=== PATIENT | female | born 1945 | race Caucasian/White ===

== ENCOUNTER 2017-05-12 08:57 | Outpatient (CLI) | payer MEDICARE, OTHER, SELFPAY ==
--- NOTE | 2017-05-12 09:01 | MM_ITS ---
MM Dig screening mamm BI w/CAD CAD Screening COMPARISON: Digital mammograms 02/06/2015 and 03/09/2016 INDICATION: There is been previous biopsy right breast. There is a history of breast cancer in patient's maternal great aunt TECHNIQUE: Standard CC and MLO images were obtained. R2 CAD reviewed. FINDINGS: Mild to moderate scattered fiber glandular densities are seen throughout both breast primarily upper outer quadrants. There are stable tiny benign-appearing nodular densities axillary tail right breast. There is a mole marker right axilla. There is no suspicious lesion and there are no suspicious microcalcifications. IMPRESSION: Fibrofatty parenchyma with no suspicious lesion seen BI-RADS Category: 2 Benign Finding(s) RECOMMENDED FOLLOW-UP: 1YR - 1 YEAR FOLLOW-UP (A letter has been sent to the patient regarding results of the study.)
[2017-05-12 09:22] VITALS: BP 140/86; PULSE 87; RESP 18; TEMP 36.7; O2SAT 97
== END 2017-05-12 09:45 | disposition home or self-care (01) ==
PROVIDERS: PCP Family Medicine; Visit Provider Nurse Practitioner Obstetrics & Gynecology
DX: Z12.31 Encounter for screening mammogram for malignant neoplasm of breast (principal); M85.89 Other specified disorders of bone density and structure, multiple sites
CPT/HCPCS: 77067; 96372; J0897

== ENCOUNTER → 2017-06-03 09:37 | Outpatient (CLI) | payer MEDICARE, OTHER, SELFPAY ==
--- NOTE | 2017-06-03 09:39 | XR_ITS ---
XR DEXA axial skeleton COMPARISON: None HISTORY: Patient is postmenopausal TECHNIQUE: DEXA scanning lumbar spine and bilateral hips FINDINGS: The areas BMD lumbar spine L1-L4 is 1.159 g centimeters squared and the T score is -0.2. The total BMD left hip is 0.968 g centimeters squared and right hip is 0.979 g centimeters square and the T-scores are -0.3 and -0.2 respectively. Both femoral neck T scores of -1.1. IMPRESSION: Normal study lumbar spine, mild osteopenia of the hips, consider follow-up study in approximately 2 years
== END ==
PROVIDERS: PCP Family Medicine; Visit Provider Nurse Practitioner Obstetrics & Gynecology
DX: Z78.0 Asymptomatic menopausal state (principal)
CPT/HCPCS: 77080

== ENCOUNTER → 2017-06-23 13:09 | Outpatient (POV) | payer MEDICARE, OTHER, SELFPAY | PROVIDERS: Visit Provider Dermatology | DX: Z00.00 Encounter for general adult medical examination without abnormal findings (principal) ==

== ENCOUNTER → 2017-12-08 09:28 | Outpatient (CLI) | payer MEDICARE, OTHER, SELFPAY ==
--- NOTE | 2017-12-08 09:36 | XR_ITS ---
XR knee LT 3V HISTORY: ITS.REASON: LEFT KNEE PAIN ORDERING PHYSICIAN: JIMBO Molina PATIENT AGE: 72 years COMPARISON: None FINDINGS: On the lateral view there is a lucency at the proximal tip of the fibula also noted on the oblique view. This could be due to either an avulsion injury which could be acute or old versus accessory center of ossification. Please correlate with patient's history and clinical exam. No other significant anomalies are evident. IMPRESSION: Lucency at the proximal tip of the fibular head which could be due to an avulsion injury age indeterminate or ununited ossification center.
== END ==
PROVIDERS: PCP Family Medicine; Visit Provider Physician Assistant
DX: M25.562 Pain in left knee (principal)
CPT/HCPCS: 73562

== ENCOUNTER → 2017-12-21 09:47 | Outpatient (CLI) | payer MEDICARE, OTHER, SELFPAY ==
--- NOTE | 2017-12-21 09:54 | XR_ITS ---
XR knee LT 3V HISTORY: Knee pain ITS.REASON: AVULSION FX ORDERING PHYSICIAN: JIMBO Molina PATIENT AGE: 72 years COMPARISON: 12/08/2017 FINDINGS: There remains a lucency at the head of the fibula. This is well-circumscribed and is consistent with either an old avulsion fracture or accessory center of ossification and is not significantly changed. The joint space is well-preserved. No acute fracture or dislocation. IMPRESSION: No change with no acute finding. Old avulsion fracture versus ununited ossification center at the fibular head
== END ==
PROVIDERS: PCP Family Medicine; Visit Provider Physician Assistant
DX: T14.8XXA Other injury of unspecified body region, initial encounter (principal)
CPT/HCPCS: 73562

== ENCOUNTER 2018-01-25 09:08 | Outpatient (CLI) | payer MEDICARE, OTHER, SELFPAY ==
[2018-01-25 09:12] VITALS: BP 121/81; PULSE 98; RESP 20; TEMP 36.7; O2SAT 97
== END 2018-01-25 09:30 | disposition home or self-care (01) ==
LOC: INF 09:08
PROVIDERS: Visit Provider Nurse Practitioner Obstetrics & Gynecology
DX: M85.89 Other specified disorders of bone density and structure, multiple sites (principal)
CPT/HCPCS: 96372; J0897

== ENCOUNTER → 2018-05-17 07:51 | Outpatient (CLI) | payer MEDICARE, OTHER, SELFPAY ==
[2018-05-17 13:21] LABS: Alanine Aminotransferase 28 U/L (12-78); Albumin Level 3.8 gm/dL (3.4-5.0); Albumin/Globulin Ratio 1.1 (1.1-1.8); Alkaline Phosphatase 65 U/L (46-116); Anion Gap 12.3 mEq/L (5-15); Aspartate Amino Transferase 16 U/L (15-37); Bilirubin,Total 0.4 mg/dL (0.2-1.0); Blood Urea Nitrogen 20 mg/dL (7-18); Calcium 9.1 mg/dL (8.5-10.1); Carbon Dioxide 30 mmol/L (21.0-32.0); Chloride 105 mmol/L (98-107); Chol/HDL Ratio 3.7 (1-3.5); Cholesterol 230 mg/dL (140-200); Creatinine,Serum 0.78 mg/dL (0.55-1.02); Estimated Glomerular Filt Rate 73 ml/min (>60); GFR (African American) 88 ML/MIN (>60); Globulin 3.5 gm/dl (1.3-3.2); Glucose 95 mg/dL (74-106); HDL Cholesterol 62 mg/dL (29-89); LDL Cholesterol 149 mg/dL (0-130); Potassium 4.3 mmoL/L (3.5-5.1); Sodium 143 mmol/L (136-145); Thyroid Stimulating Hormone 1.44 uIU/ml (0.358-3.740); Total Protein,Serum 7.3 gm/dL (6.4-8.2); Triglycerides 93 mg/dL (30-200); VLDL Cholesterol 19 mg/dL (0-40)
== END ==
PROVIDERS: Visit Provider Physician Assistant
DX: I10 Essential (primary) hypertension (principal); Z13.29 Encounter for screening for other suspected endocrine disorder; Z13.220 Encounter for screening for lipoid disorders
CPT/HCPCS: 36415; 80053; 80061; 84443

== ENCOUNTER → 2018-05-29 10:07 | Outpatient (CLI) | payer MEDICARE, OTHER, SELFPAY ==
--- NOTE | 2018-05-29 10:09 | MM_ITS ---
MM Dig screening mamm BI w/CAD ORDERING PHYSICIAN : Amanda Kauffman MD PATIENT AGE: 73 years GENDER: Female COMPARISON: Bilateral mammogram January 2013, 2013, 2014, February 2016. April 2017. INDICATION: ITS routine SCREENING. No hormones. No new complaints. Previous stereotactic biopsy right breast. Family history. Maternal great aunt sent for TECHNIQUE: Standard CC and MLO images were obtained. R2 CAD reviewed. . Additional axillary cc view both right and left breast with additional MLO nipple profile view is well. FINDINGS: Minimal residual fibroglandular elements in both breast but no suspicious dominant mass or suspicious calcifications. RIGHT BREAST:No new areas of concern. Follow-up in one year LEFT BREAST: No significant new areas of concern Minimal density at the superior left breast towards upper-outer quadrant that is remain stable. And similar to 2015 & 2013 studies. . Bilateral follow-up in one year recommended IMPRESSION: No significant new areas of concern. Stable mammogram.Stable mild asymmetry. Routine follow-up recommended. BI-RADS Category: 2 Benign Finding(s) RECOMMENDED FOLLOW-UP: 1YR 1 YEAR FOLLOW-UP (A letter has been sent to the patient regarding results of the study.)
== END ==
PROVIDERS: PCP Family Medicine; Visit Provider Family Medicine
DX: Z12.31 Encounter for screening mammogram for malignant neoplasm of breast (principal)
CPT/HCPCS: 77067

== ENCOUNTER → 2018-07-24 07:29 | Outpatient (CLI) | payer MEDICARE, OTHER, SELFPAY ==
[2018-07-24 08:33] LABS: Alanine Aminotransferase 31 U/L (12-78); Albumin Level 3.7 gm/dL (3.4-5.0); Anion Gap 14.8 mEq/L (5-15); Aspartate Amino Transferase 17 U/L (15-37); Bilirubin,Total 0.3 mg/dL (0.2-1.0); Blood Urea Nitrogen 22 mg/dL (7-18); Calcium 8.9 mg/dL (8.5-10.1); Carbon Dioxide 27 mmol/L (21.0-32.0); Chloride 107 mmol/L (98-107); Cholesterol 181 mg/dL (140-200); Creatinine,Serum 0.88 mg/dL (0.55-1.02); Estimated Glomerular Filt Rate 63 ml/min (>60); GFR (African American) 77 ML/MIN (>60); Globulin 3.7 gm/dl (1.3-3.2); Glucose 98 mg/dL (74-106); HDL Cholesterol 62 mg/dL (29-89); Potassium 3.8 mmoL/L (3.5-5.1); Sodium 145 mmol/L (136-145); Total Protein,Serum 7.4 gm/dL (6.4-8.2); Triglycerides 100 mg/dL (30-200); VLDL Cholesterol 20 mg/dL (0-40)
[2018-07-24 08:34] LABS: Alkaline Phosphatase 71 U/L (46-116); Chol/HDL Ratio 2.9 (1-3.5); LDL Cholesterol 99 mg/dL (0-130)
== END ==
PROVIDERS: Visit Provider Physician Assistant
DX: E78.2 Mixed hyperlipidemia (principal)
CPT/HCPCS: 36415; 80053; 80061

== ENCOUNTER 2018-07-26 08:51 | Outpatient (CLI) | payer MEDICARE, OTHER, SELFPAY ==
[2018-07-26 09:21] VITALS: BP 132/70; PULSE 76; RESP 18; TEMP 36.6; O2SAT 98
== END 2018-07-26 09:35 | disposition home or self-care (01) ==
LOC: INF 08:52
PROVIDERS: Visit Provider Nurse Practitioner Obstetrics & Gynecology
DX: M85.89 Other specified disorders of bone density and structure, multiple sites (principal)
CPT/HCPCS: 96372; J0897

== ENCOUNTER → 2018-11-10 10:12 | Outpatient (CLI) | payer MEDICARE, OTHER, SELFPAY ==
--- NOTE | 2018-11-10 | ECG_ITS ---
APPROVED REPORT Exam: Resting ECG HR:74 bpm ECG Measurements Heart Rate 74 AXES MA 116 P 55 QRSd 76 QRS 66 QT 404 T 71 QTc 448 <Conclusion> Normal sinus rhythm Normal ECG Electronically signed by : Johny Abraham, 11/10/2018 17:39:27
[2018-11-10 10:15] LABS: Microscopic, Urine URINE MICROSCOPIC (MICROSCOPIC)
[2018-11-10 10:36] LABS: Basophils % 0.6 % (0.1-2.0); Eosinophils # 0.2 K/mm3 (0.0-0.4); Eosinophils % 2.4 % (0.1-12.0); Hematocrit 42.5 % (37.0-47.0); Hemoglobin 13.5 g/dL (12.2-16.2); Lymphocytes % 30.7 % (10-50); Mean Corpuscular HGB Conc 31.8 g/dL (31.8-35.4); Mean Corpuscular Hemoglobin 28.7 pg (27.0-31.2); Mean Corpuscular Volume 90.2 fl (81-99); Mean Platelet Volume 7.4 fl (7.4-10.4); Monocytes # 0.4 K/mm3 (0.1-1.0); Monocytes % 5.7 % (1.7-9.3); Neutrophils # 3.8 K/mm3 (1.8-7.8); Neutrophils % 60.5 % (37.0-80.0); Platelet Count 240 K/mm3 (142-424); Red Blood Count 4.71 M/mm3 (4.20-5.40); Red Cell Distribution Width 13.4 % (11.5-17.5); White Blood Count 6.4 K/mm3 (4.8-10.8)
--- NOTE | 2018-11-10 10:36 | XR_ITS ---
PROCEDURE: XR CHEST 2V CLINICAL HISTORY: SOB, Shortness of breath, dyspnea COMPARISON: No exams were available for comparison FINDINGS: The cardiomediastinal silhouette and pulmonary vascularity are within normal limits. The lungs are clear without infiltrates, suspicious nodules, or pleural effusions. There is mild kyphosis of the thoracic spine. IMPRESSION: No acute finding Dictated by: Rick Hollingsworth MD 11/10/2018 10:52 Signed by: <Electronically signed by Rick Hollingsworth MD in [place]> 11/11/2018 10:33
[2018-11-10 10:45] LABS: Activated Partial Thrombo Time 24.3 seconds (23.6-34.0); Prothrombin Time 10.4 seconds (9.4-11.8)
[2018-11-10 11:01] LABS: Appearance,Urine CLEAR (Clear); Bilirubin,Urine Negative (Negative); Blood, Urine Negative (Negative); Color,Urine YELLOW (Yellow); Glucose,Urine (UA) Negative (Negative); Ketones,Urine Negative (Negative); Leukocyte Esterase,Urine 1+ (Negative); Nitrate,Urine Negative (Negative); PH,Urine 7.5 (5.0-8.5); Protein,Urine Negative (Negative); Specific Gravity, Urine <= 1.005 (1.005-1.030); Urobilinogen,Urine 0.2 EU/dl (0.2)
[2018-11-10 11:36] LABS: Bacteria,Urine Trace /lpf; WBC,Urine Occasional #/hpf (0-3)
[2018-11-10 11:47] LABS: Alanine Aminotransferase 30 U/L (12-78); Albumin/Globulin Ratio 1.2 (1.1-1.8); Alkaline Phosphatase 65 U/L (46-116); Anion Gap 10.5 mEq/L (5-15); Aspartate Amino Transferase 20 U/L (15-37); Bilirubin,Total 0.4 mg/dL (0.2-1.0); Blood Urea Nitrogen 17 mg/dL (7-18); Calcium 9.3 mg/dL (8.5-10.1); Carbon Dioxide 30 mmol/L (21.0-32.0); Chloride 103 mmol/L (98-107); Creatinine,Serum 0.84 mg/dL (0.55-1.02); Estimated Glomerular Filt Rate 67 ml/min (>60); GFR (African American) 81 ML/MIN (>60); Globulin 3.4 gm/dl (1.3-3.2); Glucose 91 mg/dL (74-106); Potassium 4.5 mmoL/L (3.5-5.1); Sodium 139 mmol/L (136-145); Total Protein,Serum 7.4 gm/dL (6.4-8.2)
[2018-11-10 15:29] LABS: Hemoglobin A1C 5.6 % (0.0-7.0)
== END ==
PROVIDERS: Visit Provider Family Medicine
DX: Z01.818 Encounter for other preprocedural examination (principal); Z79.899 Other long term (current) drug therapy; Z51.81 Encounter for therapeutic drug level monitoring
CPT/HCPCS: 36415; 71046; 80053; 81001; 83036; 85025; 85610; 85730; 87086; 87088; 87186; 93005

== ENCOUNTER 2019-01-26 09:10 | Outpatient (CLI) | payer MEDICARE, OTHER, SELFPAY ==
[2019-01-26 09:35] VITALS: BP 136/82; PULSE 73; RESP 20
== END 2019-01-26 09:50 | disposition home or self-care (01) ==
LOC: INF 09:13
PROVIDERS: Visit Provider Nurse Practitioner Obstetrics & Gynecology
DX: M85.89 Other specified disorders of bone density and structure, multiple sites (principal)
CPT/HCPCS: 96372; J0897

== ENCOUNTER → 2019-02-02 10:20 | Outpatient (CLI) | payer MEDICARE, OTHER, SELFPAY ==
--- NOTE | 2019-02-02 10:32 | MR_ITS ---
PROCEDURE: MR HEAD/BRAIN WO/W CON CLINICAL INDICATION: ATAXIA Bilateral leg and arm weakness COMPARISON: No exams were available for comparison TECHNIQUE: Routine multiplanar multi echo sequences are performed without and with gadolinium enhancement. FINDINGS: No midline shift, mass effect, intracranial hemorrhage, or hydrocephalus is evident. The cerebellopontine angles, cerebellum, and brainstem have an unremarkable appearance. No significant intracranial T2 white matter hyperintensities. No enhancing lesions. No restricted diffusion. The pituitary, optic chiasm, corpus callosum are unremarkable. There is diffuse increased T2 signal within the cervical cord beginning in the upper aspect of the cord at the C1 level. At this level of the involvement is more extensive on the right but then becomes bilateral and shows some minimal enhancement. No cord enlargement is evident. The cervical cord is only well visualized on the sagittal T2 weighted. The uppermost portion of the cervical cord is also imaged on the axial images.. The level of involvement is at least from the C1 to the C4 level. There is both right and left central involvement of the cord with some sparing of the periaqueductal region. There is mild mucosal thickening of the ethmoid sinuses. IMPRESSION: 1. Abnormal signal intensity of the upper cervical cord as described above with mild diffuse increased T2 signal with some minimal enhancement with involvement of at least 4 levels from C1 the C4. This is consistent with myelopathy. Differential diagnosis would include transverse myelitis, neuromyelitis optica, acute disseminated encephalomyelitis, multiple sclerosis, and vasculitis. Recommend MRI of the cervical spine without and with gadolinium enhancement for more definitive evaluation. 2. Mild sinus disease. 3. No acute intracranial findings. The 4. These findings were discussed by telephone with Dr. Santiago 02/02/2019 at 1:30 p.m. Dictated by: Rick Hollingsworth MD 02/02/2019 13:52 Electronically signed by Rick Hollingsworth MD in [place] 02/02/2019 13:54
== END ==
PROVIDERS: PCP Family Medicine; Visit Provider Family Medicine
DX: R27.0 Ataxia, unspecified (principal)
CPT/HCPCS: 70553; A9576

== ENCOUNTER 2019-03-13 11:00 | Outpatient (RCR) | payer MEDICARE, OTHER, SELFPAY | END 2019-03-13 11:05 | disposition home or self-care (01) | LOC: PT 11:00 | PROVIDERS: PCP Family Medicine; Visit Provider Physical Medicine & Rehabilitation | DX: G37.3 Acute transverse myelitis in demyelinating disease of central nervous system (principal) | CPT/HCPCS: 97110; 97112; 97116; 97163 ==

== ENCOUNTER 2019-05-31 14:30 | Outpatient (RCR) | payer MEDICARE, OTHER, SELFPAY | END 2019-05-31 14:35 | disposition home or self-care (01) | LOC: PT 14:30 | PROVIDERS: PCP Family Medicine; Visit Provider Radiology Diagnostic Radiology | DX: M54.2 Cervicalgia (principal) | CPT/HCPCS: 97110; 97112; 97163; 97164 ==

== ENCOUNTER 2019-07-27 13:10 | Outpatient (CLI) | payer MEDICARE, OTHER, SELFPAY ==
[2019-07-27 13:35] VITALS: BP 126/83; PULSE 91; RESP 18; TEMP 36.6; O2SAT 92
== END 2019-07-27 13:50 | disposition home or self-care (01) ==
LOC: INF 13:19
PROVIDERS: Visit Provider Nurse Practitioner Obstetrics & Gynecology
DX: M85.89 Other specified disorders of bone density and structure, multiple sites (principal)
CPT/HCPCS: 96372; J0897

== ENCOUNTER → 2019-09-20 09:53 | Outpatient (CLI) | payer MEDICARE, OTHER, SELFPAY ==
--- NOTE | 2019-09-20 09:59 | US_ITS ---
APPROVED REPORT Exam Type: Lower Extremity Segmental Pressures Helicopter Pilot: Crysatl Maxwell RVT Indications Claudication: Bilaterally Rest Pain: Bilaterally Numbness/Tingling Ifeanyi feet are purple x 1 month Pressures/Indices Right Indices Left Indices Brachial 131.00 mmHg Brachial 137.00 mmHg Low Thigh 158.00 mmHg 1.15 Low Thigh 176.00 mmHg 1.28 Calf 156.00 mmHg 1.14 Calf 156.00 mmHg 1.14 Ankle(PT) 154.00 mmHg 1.12 Ankle(PT) 162.00 mmHg 1.18 Ankle(DP) 141.00 mmHg 1.03 Ankle(DP) 152.00 mmHg 1.11 Digit 80.00 mmHg 0.58 Digit 70.00 mmHg 0.51 Findings RT JASBIR:1.12 LT JASBIR:1.18 RT TBI:0.58 LT TBI:0.51 NORMAL PULSES BILATERAL NORMAL WAVEFORMS BILATERAL Conclusion Normal appearing resting noninvasive lower extremity arterial study. Electronically signed by : Rick Hollingsworth MD 09/21/2019 11:38:34
== END ==
PROVIDERS: PCP Family Medicine; Visit Provider Family Medicine
DX: I70.213 Atherosclerosis of native arteries of extremities with intermittent claudication, bilateral legs (principal)
CPT/HCPCS: 93923

== ENCOUNTER → 2019-11-08 09:54 | Outpatient (CLI) | payer MEDICARE, OTHER, SELFPAY ==
--- NOTE | 2019-11-08 09:57 | XR_ITS ---
PROCEDURE: XR DEXA AXIAL SKELETON CLINICAL HISTORY: POST MENOPAUSAL COMPARISON: No exams were available for comparison FINDINGS: The right hip BMD is 0.732 with a t-score of -1.1. The left hip BMD is 0.737 with a t-score of -1 0. The lumbar spine BMD is 1.021 with a t-score of -0.2. IMPRESSION: Osteopenia with moderate fracture risk. Treatment advised. Suggest follow-up exam in 2 years Dictated by: Rick Hollingsworth MD 11/10/2019 11:15 Rick Hollingsworth MD in [place] 11/10/2019 11:15
== END ==
PROVIDERS: PCP Family Medicine; Visit Provider Family Medicine
DX: Z78.0 Asymptomatic menopausal state (principal); M85.89 Other specified disorders of bone density and structure, multiple sites
CPT/HCPCS: 77080

== ENCOUNTER 2020-01-29 09:51 | Outpatient (CLI) | payer MEDICARE, OTHER, SELFPAY ==
[2020-01-29 09:56] VITALS: BP 122/53; PULSE 98; RESP 18; TEMP 36.3; O2SAT 100
== END 2020-01-29 10:21 | disposition home or self-care (01) ==
LOC: INF 09:51
PROVIDERS: Visit Provider Nurse Practitioner Obstetrics & Gynecology
DX: M85.89 Other specified disorders of bone density and structure, multiple sites (principal)
CPT/HCPCS: 96372; J0897

== ENCOUNTER → 2020-07-18 10:10 | Outpatient (CLI) | payer MEDICARE, OTHER, SELFPAY ==
--- NOTE | 2020-07-18 10:15 | US_ITS ---
APPROVED REPORT Exam Type: Ankle to Brachial Index [employer] Officer: RT Jose(R) Indications Claudication: Bilaterally Rest Pain: Bilaterally bilateral discoloration of feet Pressures/Indices Right Indices Left Indices Brachial 143.00 mmHg Brachial 150.00 mmHg Low Thigh 159.00 mmHg 1.06 Low Thigh 175.00 mmHg 1.17 Calf 171.00 mmHg 1.14 Calf 173.00 mmHg 1.15 Ankle(PT) 160.00 mmHg 1.07 Ankle(PT) 167.00 mmHg 1.11 Ankle(DP) 158.00 mmHg 1.05 Ankle(DP) 158.00 mmHg 1.05 Digit 83.00 mmHg 0.55 Digit 103.00 mmHg 0.69 Findings RT JASBIR=1.1 LT JASBIR=1.1 RT TBI=0.6 LT TBI=0.7 Normal pulses Normal waveforms Conclusion RT JASBIR=1.1 LT JASBIR=1.1 RT TBI=0.6 LT TBI=0.7 Normal pulses Normal waveforms Electronically signed by : Rick Hollingsworth MD 07/18/2020 15:46:58
== END ==
PROVIDERS: PCP Family Medicine; Visit Provider Family Medicine
DX: I70.213 Atherosclerosis of native arteries of extremities with intermittent claudication, bilateral legs (principal)
CPT/HCPCS: 93923

== ENCOUNTER 2020-07-29 10:03 | Outpatient (CLI) | payer MEDICARE, OTHER, SELFPAY ==
[2020-07-29 10:23] VITALS: BP 151/86; PULSE 90; RESP 18; TEMP 36.4; O2SAT 98
== END 2020-07-29 10:41 | disposition home or self-care (01) ==
LOC: INF 10:03
PROVIDERS: Visit Provider Nurse Practitioner Obstetrics & Gynecology
DX: M85.89 Other specified disorders of bone density and structure, multiple sites (principal)
CPT/HCPCS: 96372; J0897

== ENCOUNTER → 2020-09-10 09:21 | Outpatient (CLI) | payer MEDICARE, OTHER, SELFPAY ==
--- NOTE | 2020-09-10 09:26 | MM_ITS ---
PROCEDURE INFORMATION: Exam: MG Screening 3D Mammography Exam date and time: 09/10/2020 9:26 AM Age: 75 years old Clinical indication: Encounter for screening mammogram for malignant neoplasm of breast TECHNIQUE: Imaging protocol: Screening tomosynthesis and 2D mammography including computer-aided detection (CAD) when performed. COMPARISON: 1. MG [facility] MM Dig screening mamm BI w/CAD 05/29/2018 10:32 AM 2. MG [facility] MM Dig screening mamm BI w/CAD 05/12/2017 9:50 AM FINDINGS: MAMMOGRAPHY: Breast composition: The breast tissue is composed of scattered areas of fibroglandular density. Mass: None. Architectural distortion: None. Calcifications: No suspicious calcifications. Asymmetric density: None. Skin thickening: None. Axillary adenopathy: None. IMPRESSION: No mammographic evidence of malignancy. Annual screening is recommended unless otherwise clinically indicated. ASSESSMENT: BI-RADS Category 1: Negative
== END ==
PROVIDERS: PCP Family Medicine; Visit Provider Nurse Practitioner Obstetrics & Gynecology
DX: Z12.31 Encounter for screening mammogram for malignant neoplasm of breast (principal)
CPT/HCPCS: 77063; 77067

== ENCOUNTER → 2020-09-30 14:54 | Outpatient (POV) | payer MEDICARE, OTHER, SELFPAY | PROVIDERS: Visit Provider Dermatology | DX: Z00.00 Encounter for general adult medical examination without abnormal findings (principal) ==

== ENCOUNTER → 2021-01-26 14:05 | Outpatient (POV) | payer MEDICARE, OTHER, SELFPAY | PROVIDERS: Visit Provider Internal Medicine Nephrology | DX: Z00.00 Encounter for general adult medical examination without abnormal findings (principal) ==

== ENCOUNTER 2021-02-04 09:54 | Outpatient (CLI) | payer MEDICARE, OTHER, SELFPAY ==
[2021-02-04 10:18] VITALS: BP 145/84; PULSE 87; RESP 17; TEMP 36.8; O2SAT 97
== END 2021-02-04 10:21 | disposition home or self-care (01) ==
LOC: INF 09:55
PROVIDERS: PCP Family Medicine; Visit Provider Nurse Practitioner Obstetrics & Gynecology
DX: L40.50 Arthropathic psoriasis, unspecified (principal)
CPT/HCPCS: 96372; J0897

== ENCOUNTER → 2021-02-16 12:55 | Outpatient (CLI) | payer MEDICARE, OTHER, SELFPAY ==
--- NOTE | 2021-02-16 12:57 | US_ITS ---
PROCEDURE: US KIDNEY CLINICAL INDICATION: RENAL INSUFFICIENCY, URINARY RETENTION COMPARISON: No exams were available for comparison FINDINGS: The right kidney is 10 x 4 x 5 cm. Mild cortical thinning. No hydronephrosis or renal mass. The left kidney is 11 x 4 x 4 cm. There is mild prominence of the left renal pelvicaliceal system. Mild cortical thinning. IMPRESSION: Mild bilateral renal cortical thinning. Mild left hydronephrosis Dictated by: Rick Hollingsworth MD 02/16/2021 16:51 Rick Hollingsworth MD in [place] 02/16/2021 16:51
== END ==
PROVIDERS: PCP Family Medicine; Visit Provider Internal Medicine Nephrology
DX: N28.9 Disorder of kidney and ureter, unspecified (principal)
CPT/HCPCS: 76770

== ENCOUNTER → 2021-02-19 08:50 | Outpatient (CLI) | payer MEDICARE, OTHER, SELFPAY ==
[2021-02-19 08:53] LABS: Microscopic, Urine URINE MICROSCOPIC (MICROSCOPIC)
[2021-02-19 09:26] LABS: Hematocrit 36.9 % (37.0-47.0); Hemoglobin 12.2 g/dL (12.2-16.2); Mean Corpuscular HGB Conc 33.1 g/dL (31.8-35.4); Mean Corpuscular Hemoglobin 29.7 pg (27.0-31.2); Mean Corpuscular Volume 89.6 fl (81-99); Platelet Count 220 K/mm3 (142-424); Red Blood Count 4.12 M/mm3 (4.20-5.40)
[2021-02-19 09:28] LABS: Appearance,Urine CLEAR (Clear); Bilirubin,Urine Negative (Negative); Blood, Urine 1+ (Negative); Color,Urine YELLOW (Yellow); Glucose,Urine (UA) Negative (Negative); Ketones,Urine Negative (Negative); Leukocyte Esterase,Urine 2+ (Negative); Nitrate,Urine POSITIVE (Negative); PH,Urine 5.5 (5.0-8.5); Protein,Urine Negative (Negative); Specific Gravity, Urine >= 1.030 (1.005-1.030); Urobilinogen,Urine 0.2 EU/dl (0.2)
[2021-02-19 09:45] LABS: Bacteria,Urine 1+ /lpf
[2021-02-19 09:59] LABS: Creatinine,Urine Random 137 mg/dL (Not Estab.)
[2021-02-19 10:08] LABS: Albumin Level 4.1 g/dl (3.5-5.0); Anion Gap 7.4 mEq/L (5-15); Blood Urea Nitrogen 30 mg/dl (7-17); Calcium 9.4 mg/dl (8.4-10.2); Carbon Dioxide 31 mmol/L (22.0-30.0); Chloride 106 mmol/L (98-107); Estimated Glomerular Filt Rate 54 ml/min (>60); GFR (African American) 66 ML/MIN (>60); Glucose 93 mg/dl (74-100); Phosphorous 3.8 mg/dl (2.5-4.5); Potassium 4.4 mmoL/L (3.5-5.1); Sodium 140 mmol/L (136-145)
== END ==
PROVIDERS: Visit Provider Internal Medicine Nephrology
DX: N28.9 Disorder of kidney and ureter, unspecified (principal); M85.89 Other specified disorders of bone density and structure, multiple sites; Z79.899 Other long term (current) drug therapy
CPT/HCPCS: 36415; 80069; 81001; 82306; 82570; 83970; 84155; 85014; 85018; 85048; 85049; 87086; 87088; 87186

== ENCOUNTER → 2021-02-23 15:09 | Outpatient (POV) | payer MEDICARE, OTHER, SELFPAY | PROVIDERS: Visit Provider Internal Medicine Nephrology | DX: Z00.00 Encounter for general adult medical examination without abnormal findings (principal) ==

== ENCOUNTER → 2021-07-17 07:53 | Outpatient (CLI) | payer MEDICARE, OTHER, SELFPAY ==
--- NOTE | 2021-07-17 07:58 | MR_ITS ---
FINAL REPORT CLINICAL HISTORY: SPINAL CORD DISEASE. CHRONIC LBP. NKI. FINDINGS: Multiplanar MR imaging of the lumbar spine was performed without contrast. On the sagittal T2-weighted images, there is abnormal decreased signal throughout the lumbar discs. There are endplate reactive signal changes at L4-L5 and L5-S1. The vertebrae are of normal height. The vertebral alignment is normal. L1-2: There is no significant canal stenosis or neural foraminal narrowing. L2-3: There is no significant canal stenosis or neural foraminal narrowing. L3-4: There is no significant canal stenosis or neural foraminal narrowing. L4-5: There is a mild diffuse disc bulge with mild bilateral neural foraminal narrowing. L5-S1: There is a mild diffuse disc bulge with mild bilateral neural foraminal narrowing. IMPRESSION: Diffuse disc bulges with mild bilateral neural foraminal narrowing at L4-L5 and L5-S1. Reviewed, Interpreted and Dictated by Tonny Huffman MD Transcribed by Richard Tam Authenticated by Tonny Huffman MD on 07/17/2021 11:04:[address] [facility]
--- NOTE | 2021-07-17 07:58 | MR_ITS ---
FINAL REPORT CLINICAL HISTORY: SPINAL CORD DISEASE, CHRONIC NECK PAIN. NKI. FINDINGS: Multi planar MR imaging was obtained of the cervical spine with and without contrast. There is abnormal decreased signal throughout the cervical discs. The vertebrae are of normal height. There is no malalignment. The cervical cord demonstrates normal signal and configuration. C2-C3: There is no evidence of significant disc bulge or protrusion. There is no significant facet hypertrophy. C3-C4: There is no evidence of significant disc bulge or protrusion. There is no significant facet hypertrophy. C4-C5: There is a mild disc bulge. There is [id number] bilateral neural foraminal narrowing. C5-C6: There is a mild diffuse disc bulge with endplate hypertrophy eccentric to the right. There is high-grade right and mild left neural foraminal narrowing. C6-C7: There is a mild diffuse disc bulge with mild bilateral neural foraminal narrowing. C7-T1: There is no evidence of significant disc bulge or protrusion. There is no significant facet hypertrophy. There is no abnormal contrast enhancement. Specifically there is no intramedullary contrast enhancement. IMPRESSION: Hypertrophic changes of degenerative disc disease at C4-C5, C5-C6, and C6-C7 with high-grade right neural foraminal narrowing at C5-C6. Reviewed, Interpreted and Dictated by Tonny Huffman MD Transcribed by Richard Tam Authenticated by Tonny Huffman MD on 07/17/2021 01:27:[address] [facility]
[2021-07-17 09:17] LABS: Blood Urea Nitrogen 23 mg/dl (7-17); Estimated Glomerular Filt Rate 49 ml/min (>60); GFR (African American) 59 ML/MIN (>60)
== END ==
PROVIDERS: PCP Family Medicine; Visit Provider Psychiatry & Neurology Neurology
DX: G95.9 Disease of spinal cord, unspecified (principal)
CPT/HCPCS: 36415; 72148; 72156; 76376; 82565; 84520; A9576

== ENCOUNTER 2021-08-10 10:05 | Outpatient (CLI) | payer MEDICARE, OTHER, SELFPAY ==
[2021-08-10 10:22] VITALS: BP 109/62; PULSE 74
[2021-08-10 10:30] VITALS: BP 110/65
== END 2021-08-10 10:30 | disposition home or self-care (01) ==
LOC: INF 10:06
PROVIDERS: PCP Family Medicine; Visit Provider Nurse Practitioner Obstetrics & Gynecology
DX: M85.89 Other specified disorders of bone density and structure, multiple sites (principal)
CPT/HCPCS: 96372; J0897

== ENCOUNTER → 2021-09-18 10:28 | Outpatient (CLI) | payer MEDICARE, OTHER, SELFPAY ==
--- NOTE | 2021-09-18 10:28 | MM_ITS ---
PROCEDURE INFORMATION: Exam: MG Bilateral Screening 3D Mammography Exam date and time: 09/18/2021 10:24 AM Age: 76 years old Clinical indication: Screening examination TECHNIQUE: Imaging protocol: Bilateral Screening tomosynthesis and 2D mammography including computer-aided detection (CAD) when performed. COMPARISON: 1. MG MM DIG SCREENING MAMM BI W/CAD 09/10/2020 9:28 AM 2. MG [facility] MM Dig screening mamm BI w/CAD 05/29/2018 10:32 AM FINDINGS: MAMMOGRAPHY: Breast composition: There are scattered areas of fibroglandular density. Mass: None. Architectural distortion: None. Calcifications: No suspicious calcifications. Asymmetric density: None. Skin thickening: None. Axillary adenopathy: None. IMPRESSION: No mammographic evidence of malignancy. Annual screening is recommended unless otherwise clinically indicated. ASSESSMENT: BI-RADS Category 1: Negative
[2021-09-18 10:54] LABS: Microscopic, Urine URINE MICROSCOPIC (MICROSCOPIC)
[2021-09-18 11:13] LABS: Appearance,Urine CLEAR (Clear); Bilirubin,Urine Negative (Negative); Blood, Urine Negative (Negative); Color,Urine YELLOW (Yellow); Glucose,Urine (UA) Negative (Negative); Ketones,Urine Negative (Negative); Leukocyte Esterase,Urine TRACE (Negative); Nitrate,Urine Negative (Negative); Protein,Urine Negative (Negative); Specific Gravity, Urine 1.015 (1.005-1.030); Urobilinogen,Urine 0.2 EU/dl (0.2)
[2021-09-18 11:18] LABS: Hematocrit 37.6 % (37.0-47.0); Mean Corpuscular HGB Conc 31.8 g/dL (31.8-35.4); Mean Corpuscular Hemoglobin 28.9 pg (27.0-31.2); Mean Corpuscular Volume 90.8 fl (81-99); Platelet Count 240 K/mm3 (142-424); Red Blood Count 4.14 M/mm3 (4.20-5.40); Red Cell Distribution Width 14.8 % (11.5-17.5); White Blood Count 6.3 K/mm3 (4.8-10.8)
[2021-09-18 11:19] LABS: Creatinine,Urine Random 86 mg/dL (Not Estab.)
[2021-09-18 11:25] LABS: Bacteria,Urine Trace /lpf; RBC,Urine Occasional #/hpf (0-3)
[2021-09-18 12:21] LABS: Albumin Level 4.3 g/dl (3.5-5.0); Chloride 104 mmol/L (98-107); Potassium 4.1 mmoL/L (3.5-5.1); Sodium 139 mmol/L (136-145)
[2021-09-18 12:23] LABS: Blood Urea Nitrogen 20 mg/dl (7-17); Estimated Glomerular Filt Rate 54 ml/min (>60); GFR (African American) 66 ML/MIN (>60)
[2021-09-18 12:24] LABS: Anion Gap 10.1 mEq/L (5-15); Calcium 9.5 mg/dl (8.4-10.2); Carbon Dioxide 29 mmol/L (22.0-30.0); Glucose 107 mg/dl (74-100); Phosphorous 3.6 mg/dl (2.5-4.5)
== END ==
PROVIDERS: Internal Medicine Nephrology; PCP Family Medicine; Visit Provider Nurse Practitioner Obstetrics & Gynecology
DX: Z12.31 Encounter for screening mammogram for malignant neoplasm of breast (principal); N28.9 Disorder of kidney and ureter, unspecified
CPT/HCPCS: 36415; 77063; 77067; 80069; 81001; 82570; 84155; 85014; 85018; 85048; 85049

== ENCOUNTER → 2021-09-24 12:54 | Outpatient (POV) | payer MEDICARE, OTHER, SELFPAY | PROVIDERS: Visit Provider Internal Medicine Nephrology | DX: Z00.00 Encounter for general adult medical examination without abnormal findings (principal) ==

== ENCOUNTER → 2021-10-14 07:12 | Outpatient (CLI) | payer MEDICARE, OTHER, SELFPAY ==
[2021-10-14 07:25] LABS: Coronavirus 19, PCR Not Detected (NotDetected); Influenza A, PCR Not Detected (NotDetected); Influenza B, PCR Not Detected (NotDetected)
== END ==
PROVIDERS: PCP Family Medicine; Visit Provider Family Medicine
DX: Z20.822 Contact with and (suspected) exposure to COVID-19 (principal)
CPT/HCPCS: C9803; U0003; U0005

== ENCOUNTER 2022-02-16 10:02 | Outpatient (CLI) | payer MEDICARE, OTHER, SELFPAY ==
[2022-02-16 10:22] VITALS: BP 124/72; PULSE 72; RESP 18; O2SAT 97
== END 2022-02-16 10:22 | disposition home or self-care (01) ==
LOC: INF 10:04
PROVIDERS: PCP Family Medicine; Visit Provider Nurse Practitioner Obstetrics & Gynecology
DX: M85.89 Other specified disorders of bone density and structure, multiple sites (principal)
CPT/HCPCS: 96372; J0897

== ENCOUNTER 2022-08-17 08:44 | Outpatient (CLI) | payer MEDICARE, OTHER, SELFPAY ==
[2022-08-17 08:40] VITALS: BP 111/65; PULSE 68; RESP 18; TEMP 37.1; O2SAT 99
== END 2022-08-17 08:52 | disposition home or self-care (01) ==
LOC: INF 08:44
PROVIDERS: PCP Family Medicine; Visit Provider Nurse Practitioner Obstetrics & Gynecology
DX: M85.89 Other specified disorders of bone density and structure, multiple sites (principal)
CPT/HCPCS: 96372; J0897

== ENCOUNTER → 2022-09-28 09:39 | Outpatient (CLI) | payer MEDICARE, OTHER, SELFPAY ==
[2022-09-28 09:50] LABS: Microscopic, Urine URINE MICROSCOPIC (MICROSCOPIC)
[2022-09-28 10:22] LABS: Hematocrit 38.2 % (37.0-47.0); Hemoglobin 12.4 g/dL (12.2-16.2); Mean Corpuscular HGB Conc 32.5 g/dL (31.8-35.4); Mean Corpuscular Hemoglobin 28.5 pg (27.0-31.2); Mean Corpuscular Volume 87.8 fl (81-99); Platelet Count 171 K/mm3 (142-424); Red Blood Count 4.35 M/mm3 (4.20-5.40); Red Cell Distribution Width 14.7 % (11.5-17.5); White Blood Count 4.3 K/mm3 (4.8-10.8)
[2022-09-28 10:47] LABS: Anion Gap 8.7 mEq/L (5-15); Blood Urea Nitrogen 26 mg/dl (7-17); Calcium 8.9 mg/dl (8.4-10.2); Carbon Dioxide 30 mmol/L (22.0-30.0); Chloride 105 mmol/L (98-107); Estimated Glomerular Filt Rate 54 ml/min (>60); GFR (African American) 65 ML/MIN (>60); Glucose 87 mg/dl (74-100); Phosphorous 3.8 mg/dl (2.5-4.5); Potassium 4.7 mmoL/L (3.5-5.1); Sodium 139 mmol/L (136-145)
[2022-09-28 10:58] LABS: Intact Parathyroid Hormone 86.8 pg/mL (7.5-53.5)
[2022-09-28 11:02] LABS: 25-OH Vitamin D, Total 61.3 ng/mL (30-100)
[2022-09-28 11:45] LABS: Appearance,Urine CLEAR (Clear); Bilirubin,Urine Negative (Negative); Blood, Urine Negative (Negative); Color,Urine YELLOW (Yellow); Glucose,Urine (UA) Negative (Negative); Ketones,Urine Negative (Negative); Leukocyte Esterase,Urine Negative (Negative); Nitrate,Urine Negative (Negative); Protein,Urine Negative (Negative); Specific Gravity, Urine <= 1.005 (1.005-1.030); Urobilinogen,Urine 0.2 EU/dl (0.2)
[2022-09-28 13:32] LABS: Squamous Epithelial Cell,Urine Occasional #/hpf (0-5); WBC,Urine Occasional #/hpf (0-3)
[2022-09-28 16:30] LABS: Creatinine,Urine Random 54 mg/dL (Not Estab.)
== END ==
PROVIDERS: PCP Family Medicine; Visit Provider Internal Medicine Nephrology
DX: N18.31 Chronic kidney disease, stage 3a (principal); E55.9 Vitamin D deficiency, unspecified
CPT/HCPCS: 36415; 80069; 81001; 82306; 82570; 83970; 84155; 85014; 85018; 85048; 85049

== ENCOUNTER → 2022-10-01 12:57 | Outpatient (POV) | payer MEDICARE, OTHER, SELFPAY | PROVIDERS: Visit Provider Internal Medicine Nephrology | DX: Z00.00 Encounter for general adult medical examination without abnormal findings (principal) ==

== ENCOUNTER 2022-10-22 14:08 | Emergency (ER) | payer MEDICARE, OTHER, SELFPAY ==
[2022-10-22 14:25] VITALS: BP 121/73; PULSE 85; RESP 16; TEMP 36.8; O2SAT 98; BMI 30.9
--- NOTE | 2022-10-22 14:34 | EXP.UTC ---
Discharge Plan Disposition Patient Disposition: Home, Self-Care Condition: Good Prescriptions Prescriptions: No Action biotin 10,000 mcg capsule 10,000 mcg PO DAILY pantoprazole 40 mg tablet,delayed release (DR/EC) 40 mg PO DAILY doxycycline hyclate 100 mg capsule 100 mg PO DAILY pregabalin 150 mg capsule 150 mg PO BID Patient Comments: TAKE 1 CAPSULE BY MOUTH TWICE DAILY denosumab 60 mg/mL syringe 60 mg SQ [id number] Qty: 1 0RF losartan 25 MG tablet 25 mg PO DAILY omega-3 fatty acids-fish oil 1 EACH capsule 1 each PO DAILY Vitamin D3 1,000 Unit Cap 1 EACH tablet 1,000 units PO DAILY loratadine 10 MG tablet 10 mg PO DAILY duloxetine 60 MG capsule,delayed release(DR/EC) 60 mg PO DAILY Prolia 60 mg/mL syringe 60 mg SQ [id number] Referrals Follow up/Referrals: Jensen Santiago MD [Primary Care Provider] - See instructions Activity Restrictions/Add. Instructions Additional Instructions/Restrictions: Go straight to [facility] office in [place] for further evaluation and examination of your eye Further care per [facility] staff/Doctors Return if needed Straight to ER if any life threatening symptoms Clinical Impressions Clinical Impression: Eye problem Instructions Patient Instructions: DI for Eye Pain Discharge ED Provider: Cynthia Martinez [facility] General Stated complaint: EYE SORENESS AND REDNESS Mode of Arrival: Ambulatory Source of Information: Patient Limitations: No Limitations Time Seen by Provider: 10/22/22 14:34 Description of Symptoms (Recalled from Triage Doc. by RN): PATIENT C/O REDNESS, SWELLING, TENDERNESS AND ITCHING TO RIGHT EYE HEENT Symptoms (Recalled from RN notes): Yes Resp Symptoms (Recalled from RN notes): No Skin Symptoms (Recalled from RN notes): No MS Symptoms (Recalled from RN notes): No Functional Status (Recalled from RN notes): WNL History of Present Illness Provider Complaint: Patient states she thought she may have had a stye on her right eye and has been using her medication on it States that it busted and has been having drainage and infection from it States that area around it is sore and looking red worried she may have an infection or shingles in her eye Related Data Home Medications Medication Instructions Recorded Confirmed Vitamin D3 1,000 Unit Cap 1,000 units PO DAILY Diet 05/12/17 02/16/22 supplement losartan 25 mg tablet 25 mg PO DAILY High blood pressure 05/12/17 02/16/22 omega-3 fatty acids-fish oil 340 1 each PO DAILY Diet supplement 05/12/17 02/16/22 mg-1,000 mg capsule duloxetine 60 mg capsule,delayed 60 mg PO DAILY Pain 07/27/19 02/16/22 release loratadine 10 mg tablet 10 mg PO DAILY ALLERGIES 07/27/19 02/16/22 biotin 10,000 mcg capsule 10,000 mcg PO DAILY Diet supplement 10/20/20 02/16/22 doxycycline hyclate 100 mg capsule 100 mg PO DAILY Infection 01/14/22 02/16/22 pantoprazole 40 mg tablet,delayed 40 mg PO DAILY GERD 01/14/22 02/16/22 release pregabalin 150 mg capsule 150 mg PO BID neuropathy 01/14/22 02/16/22 denosumab 60 mg/mL subcutaneous 60 mg SQ [id number] Osteoporosis 02/16/22 02/16/22 syringe (Prolia) Previous Rx's Medication Instructions Recorded denosumab 60 mg/mL subcutaneous 60 mg SQ [id number] Osteoporosis #1 01/17/20 syringe mL Allergies Allergy/AdvReac Type Severity Reaction Status Date / Time lisinopril Allergy Intermediate Rash Verified 01/14/22 10:38 Penicillins [PENICILLINS] Allergy Intermediate I-RASH Verified 01/14/22 10:38 Worker's Comp Is this a Worker's Comp case?: No [facility] Disclaimer: The information contained in this section may have been updated after the patient was seen, as this information can be updated by other users. Social History Smoking Status: Never smoker alcohol intake: never counseling provided: provider counseling substance use type: denies use current occupational status: retired T
[2022-10-22 14:36] VITALS: BP 121/73; PULSE 85; RESP 16; TEMP 36.8; O2SAT 98
== END 2022-10-22 14:38 | disposition home or self-care (01) ==
PROVIDERS: Emergency Provider Nurse Practitioner; PCP Family Medicine
DX: H57.9 Unspecified disorder of eye and adnexa (principal)
CPT/HCPCS: 99203; 99212; G0463

== ENCOUNTER → 2022-11-09 09:05 | Outpatient (POV) | payer MEDICARE, OTHER, SELFPAY | PROVIDERS: Visit Provider Dermatology | DX: Z00.00 Encounter for general adult medical examination without abnormal findings (principal) ==

== ENCOUNTER 2022-11-14 12:41 | Emergency (ER) | payer MEDICARE, OTHER, SELFPAY ==
[2022-11-14 12:43] VITALS: BP 135/84; PULSE 111; RESP 16; TEMP 36.2; O2SAT 97; BMI 31.6
[2022-11-14 13:00] VITALS: BP 113/72; PULSE 96; O2SAT 96
--- NOTE | 2022-11-14 13:12 | HMH.EDGENADL ---
Discharge Plan Disposition Patient Disposition: Home, Self-Care Prescriptions Prescriptions: No Action biotin 10,000 mcg capsule 10,000 mcg PO DAILY pantoprazole 40 mg tablet,delayed release (DR/EC) 40 mg PO DAILY doxycycline hyclate 100 mg capsule 100 mg PO DAILY pregabalin 150 mg capsule 150 mg PO BID Patient Comments: TAKE 1 CAPSULE BY MOUTH TWICE DAILY denosumab 60 mg/mL syringe 60 mg SQ [id number] Qty: 1 0RF losartan 25 MG tablet 25 mg PO DAILY omega-3 fatty acids-fish oil 1 EACH capsule 1 each PO DAILY Vitamin D3 1,000 Unit Cap 1 EACH tablet 1,000 units PO DAILY loratadine 10 MG tablet 10 mg PO DAILY duloxetine 60 MG capsule,delayed release(DR/EC) 60 mg PO DAILY Prolia 60 mg/mL syringe 60 mg SQ [id number] Referrals Follow up/Referrals: Jensen Santiago MD [Primary Care Provider] - See instructions Activity Restrictions/Add. Instructions Additional Instructions/Restrictions: Your working diagnosis is dermatomyositis. Please continue to follow-up with Dr. Hyman and call on Tuesday to be seen in her clinic on Tuesday as her symptoms are worsening. I would recommend that you continue the medications that she is initiated until she discontinues them. Continue to take Benadryl as needed for your itchy discomfort. Return with any other concerns. Clinical Impressions Clinical Impression: Dermatomyositis Instructions Patient Instructions: DI for Skin Abscess Discharge ED Provider: Idalmis Najera General Adult HPI General Chief complaint: Skin/Abscess/Foreign Body Stated complaint: break out and all over body Time Seen by Provider: 11/14/22 12:49 Mode of Arrival: Ambulatory Source of Information: Patient Limitations: No Limitations Description of Symptoms (Recalled from ER Triage Doc. by RN): pt presents to ED c/o rash and redness. pt unable to give time of when s/s started d/t having redness and rash that has been intermittent since December. Pt states she recently saw Window Glass Installer at this facility and was given cream with no relief. History of Present Illness HPI narrative: Patient is a 77-year-old female who has had a chronic intermittent rash that is erythematous and diffuse in nature has been worsening recently to the point where she went to see a gold leaf layer Dr. Hyman here recently who made a working diagnosis of dermatomyositis. She had a classic rash associated with that. She also did some biopsies of the diagnosis is still uncertain at this point. She was given topical triamcinolone cream and the patient claims that she has had worsening of her rash particular under her eyes and has some burning associated with the triamcinolone use. She does take medication for the pruritus which she states is significant. She denies any other symptoms associated with this. She denies having significant muscular weakness to me at the moment. She denies any lesions on the back of her hands as well. Related Data Home Medications Medication Instructions Recorded Confirmed Vitamin D3 1,000 Unit Cap 1,000 units PO DAILY Diet 05/12/17 02/16/22 supplement losartan 25 mg tablet 25 mg PO DAILY High blood pressure 05/12/17 02/16/22 omega-3 fatty acids-fish oil 340 1 each PO DAILY Diet supplement 05/12/17 02/16/22 mg-1,000 mg capsule duloxetine 60 mg capsule,delayed 60 mg PO DAILY Pain 07/27/19 02/16/22 release loratadine 10 mg tablet 10 mg PO DAILY ALLERGIES 07/27/19 02/16/22 biotin 10,000 mcg capsule 10,000 mcg PO DAILY Diet supplement 10/20/20 02/16/22 doxycycline hyclate 100 mg capsule 100 mg PO DAILY Infection 01/14/22 02/16/22 pantoprazole 40 mg tablet,delayed 40 mg PO DAILY GERD 01/14/22 02/16/22 release pregabalin 150 mg capsule 150 mg PO BID neuropathy 01/14/22 02/16/22 denosumab 60 mg/mL subcutaneous 60 mg SQ [id number] Osteoporosis 02/16/22 02/16/22 syringe (Prolia) Previous Rx's Medication Instructions Recorded d
[2022-11-14 13:17] VITALS: BP 113/72; PULSE 98; RESP 18; TEMP 36.4; O2SAT 98
== END 2022-11-14 13:19 | disposition home or self-care (01) ==
PROVIDERS: Emergency Provider Student in an Organized Health Care Education/Training Program; PCP Family Medicine
DX: M33.10 Other dermatomyositis, organ involvement unspecified (principal)
CPT/HCPCS: 99283

== ENCOUNTER → 2022-11-24 10:13 | Outpatient (CLI) | payer MEDICARE, OTHER, SELFPAY ==
[2022-11-24 10:55] LABS: Basophils % 0.5 % (0.1-2.0); Eosinophils # 0.8 K/mm3 (0.0-0.4); Eosinophils % 8.6 % (0.1-12.0); Hematocrit 37.9 % (37.0-47.0); Hemoglobin 12.4 g/dL (12.2-16.2); Lymphocytes # 2.3 K/mm3 (0.7-4.5); Lymphocytes % 25.7 % (10-50); Mean Corpuscular HGB Conc 32.8 g/dL (31.8-35.4); Mean Corpuscular Hemoglobin 29.6 pg (27.0-31.2); Mean Corpuscular Volume 90.2 fl (81-99); Mean Platelet Volume 7.9 fl (7.4-10.4); Monocytes # 0.6 K/mm3 (0.1-1.0); Monocytes % 6.5 % (1.7-9.3); Neutrophils # 5.4 K/mm3 (1.8-7.8); Neutrophils % 58.8 % (37.0-80.0); Platelet Count 258 K/mm3 (142-424); White Blood Count 9.1 K/mm3 (4.8-10.8)
[2022-11-24 11:46] LABS: Alanine Aminotransferase 20 U/L (12-78); Albumin Level 3.8 g/dl (3.5-5.0); Albumin/Globulin Ratio 1.4 (1.1-1.8); Alkaline Phosphatase 62 U/L (38-126); Anion Gap 12.2 mEq/L (5-15); Aspartate Amino Transferase 20 U/L (14-36); Bilirubin,Total 0.2 mg/dl (0.2-1.3); Blood Urea Nitrogen 34 mg/dl (7-17); Calcium 9.9 mg/dl (8.4-10.2); Carbon Dioxide 28 mmol/L (22.0-30.0); Chloride 104 mmol/L (98-107); Creatine Kinase 34 U/L (30-135); Estimated Glomerular Filt Rate 48 ml/min (>60); GFR (African American) 59 ML/MIN (>60); Globulin 2.8 g/dL (1.3-3.2); Glucose 86 mg/dl (74-100); Lactate Dehydrogenase 272 U/L (313-618); Potassium 4.2 mmoL/L (3.5-5.1); Sodium 140 mmol/L (136-145); Total Protein,Serum 6.6 g/dl (6.3-8.2)
[2022-11-25 14:31] LABS: Aldolase 5.2 U/L (3.3-10.3)
[2022-12-06 11:54] LABS: Antinuclear Antibodies, IFA POSITIVE
== END ==
PROVIDERS: PCP Family Medicine; Visit Provider Dermatology
DX: M33.10 Other dermatomyositis, organ involvement unspecified (principal)
CPT/HCPCS: 36415; 80053; 82085; 82550; 83615; 85025; 86038

== ENCOUNTER → 2022-12-07 12:57 | Outpatient (POV) | payer MEDICARE, OTHER, SELFPAY | PROVIDERS: Visit Provider Dermatology | DX: Z00.00 Encounter for general adult medical examination without abnormal findings (principal) ==

== ENCOUNTER → 2023-01-04 08:04 | Outpatient (POV) | payer MEDICARE, OTHER, SELFPAY ==
--- OUTSIDE RECORDS SUMMARY | 2023-01-04 08:06 | XMS_ITS | Summary of Care ---
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) - 02/15/19 Discharge Disposition: Discharged to Home or Self Care Attending Physician: Ja Pelaez DO Admitting Physician: Ja Pelaez DO Referring Physician: Anne Peters MD Allergies, Adverse Reactions, Alerts Substance Reaction Severity Status penicillin Active lisinopril Active Medications acetaminophen 325 mg oral tablet 650 mg = 2 tab, Tab, Oral, q6hr PRN, 0 Refill(s), PAIN (Scale 1-10) Start Date: 02/23/19 Status: Ordered cefdinir 300 mg oral capsule 300 mg, 1 cap, Cap, Oral, q12hr, 10 cap, 0 Refill(s), Dispense: 5 day, Indication: Urinary Tract Infection (UTI), Stop date 02/28/19 13:28:00 EST, Print Requisition Start Date: 02/23/19 Stop Date: 02/28/19 Status: Ordered Claritin 10 mg oral tablet 10 mg = 1 tab, Tab, Oral, qAM, 30 tab, 0 Refill(s), Print Requisition Start Date: 02/23/19 Status: Ordered Coenzyme Q10 100 mg oral capsule 100 mg = 1 cap, Cap, Oral, Daily, 30 cap, 0 Refill(s), Print Requisition Start Date: 02/23/19 Status: Ordered Colace 100 mg oral capsule 100 mg = 1 cap, Cap, Oral, BID, 60 cap, 0 Refill(s), Print Requisition Start Date: 02/23/19 Stop Date: 03/25/19 Status: Ordered krill oil krill oil, Misc, Oral, Daily, 0 Refill(s) Start Date: 02/23/19 Status: Ordered losartan 25 mg oral tablet 25 mg = 1 tab, Tab, Oral, Daily, 30 tab, 0 Refill(s), Print Requisition Start Date: 02/23/19 Status: Ordered MiraLax oral powder for reconstitution 17 gm, Powder, Oral, Daily, 119 gm, 0 Refill(s), Print Requisition Start Date: 02/23/19 Status: Ordered Neurontin 300 mg oral capsule 300 mg = 1 cap, Cap, Oral, q8hr, 90 cap, 0 Refill(s), Print Requisition Start Date: 02/23/19 Status: Ordered Pepcid 20 mg oral tablet 20 mg = 1 tab, Tab, Oral, Daily, 30 tab, 0 Refill(s), Print Requisition Start Date: 02/23/19 Status: Ordered potassium chloride 10 mEq oral tablet, extended release 10 mEq = 1 tab, Tab-ER, Oral, Daily, 30 tab, 0 Refill(s), Print Requisition Start Date: 02/23/19 Status: Ordered predniSONE 20 mg oral tablet 60 mg = 3 tab, Tab, Oral, Daily, 6 tab, 0 Refill(s), Dispense: 2 day, then begin prednisone 40mg daily until follow up with neurologist, Stop date 02/25/19 13:30:00 EST, Print Requisition Start Date: 02/23/19 Stop Date: 02/25/19 Status: Ordered predniSONE 20 mg oral tablet 40 mg = 2 tab, Tab, Oral, Daily, 60 tab, 0 Refill(s), Dispense: 30 day, begin this after completing2 days of 60mg daily, Stop date 03/25/19 13:30:00 EST, Print Requisition Start Date: 02/23/19 Stop Date: 03/25/19 Status: Ordered Urecholine 10 mg oral tablet 10 mg, 1 tab, Tab, Oral, TID, 42 tab, 0 Refill(s), Dispense: 14 day, Stop date 03/09/19 13:28:00 EST, Print Requisition Start Date: 02/23/19 Stop Date: 03/09/19 Status: Ordered Vitamin D3 1000 intl units oral tablet 2,000 IntlUnit = 2 tab, Tab, Oral, Daily, 60 tab, 0 Refill(s), Print Requisition Start Date: 02/23/19 Status: Ordered Zoloft 100 mg oral tablet 100 mg = 1 tab, Tab, Oral, Daily, 30 tab, 0 Refill(s), Print Requisition Start Date: 02/23/19 Status: Ordered Problem List Condition Effective Dates Status Health Status Inform ant decreased activity tolerance(Confirmed) Active Decreased muscle strength(Confirmed) Active Self -care deficit(Confirmed) Active Results Laboratory List Name Date Glucose, POC 02/24/19 Glucose, POC 02/23/19 Glucose, POC 02/23/19 Automated Diff [facility] 02/22/19 Basic Metabolic Panel [facility] 02/22/19 Complete Blood Count w/Auto Diff [facility] 02/22/19 Automated Diff [facility] 02/19/19 Basic Metabolic Panel [facility] 02/19/19 Complete Blood Count w/Auto Diff [facility] 02/19/19 Urinalysis Complete w/Rflx Culture [facility] 1 04/21/18 Automated Diff [facility] 02/16/19 Basic Metabolic Panel [facility] 02/16/19 Complete Blood Count w/Auto Diff [facility] Most recent to oldest [Reference Range]: 1 2 3 4 Glucose POC RALS [74-106 mg/dL] 101 mg/dL (02/24/19 8:38 AM) 150 mg/dL *HI* (02/23/19 9:20 PM) 104 mg/dL (02/23/19 5:19 PM) Blood Glucose, Capillary [74-106 mg/dL] 205 mg/dL *HI* (02/19/19 10:00 PM) 138 mg/dL *HI* (02/16/19 8:03 PM) 84 mg/dL (02/16/19 9:44 AM) WBC HSL [4.5-11.5 x10(3)/mcL] 10.9 x10(3)/mcL (02/22/19 7:55 AM) 10.8 x10(3)/mcL (02/19/19 7:17 AM) 8.8 x10(3)/mcL (02/16/19 8:21 AM) RBC HSL [3.70-5.20 x10(6)/mcL] 3.99 x10(6)/mcL (02/22/19 7:55 AM) 4.08 x10(6)/mcL (02/19/19 7:17 AM) 4.17 x10(6)/mcL (02/16/19 8:21 AM) Hemoglobin HSL [12.0-15.7 gm/dL] 11.3 gm/dL *LOW* (02/22/19 7:55 AM) 11.5 gm/dL *LOW* (02/19/19 7:17 AM) 11.9 gm/dL *LOW* (02/16/19 8:21 AM) Hematocrit HSL [35.0-46.0 %] 35.9 % (02/22/19 7:55 AM) 36.1 % (02/19/19 7:17 AM) 36.5 % (02/16/19 8:21 AM) MCV HSL [78.6-102.2 fL] 90.0 fL (02/22/19 7:55 AM) 88.5 fL (02/19/19 7:17 AM) 87.5 fL (02/16/19 8:21 AM) MCH HSL [26.0-34.0 pg] 28.3 pg (02/22/19 7:55 AM) 28.2 pg (02/19/19 7:17 AM) 28.5 pg (02/16/19 8:21 AM) MCHC HSL [31.8-35.1 gm/dL] 31.5 gm/dL *LOW* (02/22/19 7:55 AM) 31.9 gm/dL (02/19/19 7:17 AM) 32.6 gm/dL (02/16/19 8:21 AM) Platelet HSL [150-450 x10(3)/mcL] 251 x10(3)/mcL (02/22/19 7:55 AM) 245 x10(3)/mcL (02/19/19 7:17 AM) 215 x10(3)/mcL (02/16/19 8:21 AM) RDW-CV% HSL [11.7-14.4 %] 14.6 % *HI* (02/22/19 7:55 AM) 14.2 % (02/19/19 7:17 AM) 13.7 % (02/16/19 8:21 AM) RDW-SD HSL [36.4-46.3 fL] 46.1 fL (02/22/19 7:55 AM) 46.1 fL (02/22/19 7:55 AM) 45.0 fL (02/19/19 7:17 AM) 45.0 fL (02/19/19 7:17 AM) MPV HSL 10.2 *NA* (02/22/19 7:55 AM) 10.3 *NA* (02/19/19 7:17 AM) 10.0 *NA* (02/16/19 8:21 AM) Neutrophil Auto HSL [39.6-77.8 %] 57.6 % (02/22/19 7:55 AM) 55.1 % (02/19/19 7:17 AM) 56.1 % (02/16/19 8:21 AM) Lymphocyte Auto HSL [17.5-52.8 %] 34.6 % (02/22/19 7:55 AM) 36.3 % (02/19/19 7:17 AM) 32.3 % (02/16/19 8:21 AM) Monocyte Auto HSL [3.0-10.4 %] 6.6 % (02/22/19 7:55 AM) 7.4 % (02/19/19 7:17 AM) 10.5 % *HI* (02/16/19 8:21 AM) Eosinophil Auto HSL [0.0-7.0 %] 0.5 % (02/22/19 7:55 AM) 0.5 % (02/19/19 7:17 AM) 0.7 % (02/16/19 8:21 AM) Basophil Auto HSL [0.0-0.9 %] 0.2 % (02/22/19 7:55 AM) 0.2 % (02/19/19 7:17 AM) 0.2 % (02/16/19 8:21 AM) Immature Gran Auto HSL [0.0-0.5 %] 0.5 % (02/22/19 7:55 AM) 0.5 % (02/19/19 7:17 AM) 0.2 % (02/16/19 8:21 AM) Neutrophil Absolute HSL [1.60-6.90 x10(3)/mcL] 6.26 x10(3)/mcL (02/22/19 7:55 AM) 5.93 x10(3)/mcL (02/19/19 7:17 AM) 4.92 x10(3)/mcL (02/16/19 8:21 AM) Lymphocyte Absolute HSL [0.9-2.8 x10(3)/mcL] 3.8 x10(3)/mcL *HI* (02/22/19 7:55 AM) 3.9 x10(3)/mcL *HI* (02/19/19 7:17 AM) 2.8 x10(3)/mcL (02/16/19 8:21 AM) Monocyte Absolute HSL [<=1.00 x10(3)/mcL] 0.72 x10(3)/mcL (02/22/19 7:55 AM) 0.80 x10(3)/mcL (02/19/19 7:17 AM) 0.92 x10(3)/mcL (02/16/19 8:21 AM) Eosinophil Absolute HSL [0.00-0.40 x10(3)/mcL] 0.05 x10(3)/mcL (02/22/19 7:55 AM) 0.05 x10(3)/mcL (02/19/19 7:17 AM) 0.06 x10(3)/mcL (02/16/19 8:21 AM) Basophil Absolute HSL [0.00-0.05 x10(3)/mcL] 0.02 x10(3)/mcL (02/22/19 7:55 AM) 0.02 x10(3)/mcL (02/19/19 7:17 AM) 0.02 x10(3)/mcL (02/16/19 8:21 AM) Immature Gran Absolute HSL [0.00-0.04 x10(3)/mcL] 0.05 x10(3)/mcL *HI* (02/22/19 7:55 AM) 0.05 x10(3)/mcL *HI* (02/19/19 7:17 AM) 0.02 x10(3)/mcL (02/16/19 8:21 AM) Color UR HSL [yellow] yellow (02/18/19 5:00 AM) Appearance UR HSL [clear] clear (02/18/19 5:00 AM) Specific [place] UR HSL [1.010-1.040] 1.005 (02/18/19 5:00 AM) pH UR HSL [5] 7 (02/18/19 5:00 AM) Glucose UR HSL norm *NA* (02/18/19 5:00 AM) Bilirubin UR HSL neg *NA* (02/18/19 5:00 AM) Ketones UR HSL neg *NA* (02/18/19 5:00 AM) Blood UR HSL neg *NA* (02/18/19 5:00 AM) Protein UR HSL neg *NA* (02/18/19 5:00 AM) Urobilinogen UR HSL norm *NA* (02/18/19 5:00 AM) Nitrite UR HSL pos *NA* (02/18/19 5:00 AM) Leukocyte Esterase UR HSL [Neg mg/dL] 100 mg/dL *ABN* (02/18/19 5:00 AM) Squamous Epithelials UR HSL [0-5] Rare (02/18/19 5:00 AM) Bacteria UR HSL 1+ /HPF *ABN* (02/18/19 5:00 AM) WBC UR HSL [None Seen /HPF] 0-2 /HPF (02/18/19 5:00 AM) RBC UR HSL [None Seen] None Seen (02/18/19 5:00 AM) Specimen Source UR HSL I/O Cath (02/18/19 5:00 AM) Estimated Creatinine Clearance 45.69 mL/min (02/22/19 9:38 AM) 45.69 mL/min (02/19/19 10:05 AM) 45.69 mL/min (02/16/19 4:02 PM) Creatinine Level 0.81 mg/dL (02/22/19 7:55 AM) 0.78 mg/dL (02/19/19 7:17 AM) 0.74 mg/dL (02/16/19 8:21 AM) Sodium HSL [138-146 mmol/L] 138 mmol/L (02/22/19 7:55 AM) 140 mmol/L (02/19/19 7:17 AM) 134 mmol/L *LOW* (02/16/19 8:21 AM) Potassium HSL [3.6-5.1 mmol/L] 3.7 mmol/L (02/22/19 7:55 AM) 3.5 mmol/L *LOW* (02/19/19 7:17 AM) 3.2 mmol/L *LOW* (02/16/19 8:21 AM) Chloride HSL [101-111 mmol/L] 102 mmol/L (02/22/19 7:55 AM) 105 mmol/L (02/19/19 7:17 AM) 107 mmol/L (02/16/19 8:21 AM) Carbon Dioxide HSL [22.0-32.0 mmol/L] 28.0 mmol/L (02/22/19 7:55 AM) 26.0 mmol/L (02/19/19 7:17 AM) 24.0 mmol/L (02/16/19 8:21 AM) Anion Gap HSL [8-16 mmol/L] 12 mmol/L (02/22/19 7:55 AM) 12 mmol/L (02/19/19 7:17 AM) 6 mmol/L *LOW* (02/16/19 8:21 AM) Glucose HSL [74-118 mg/dL] 80 mg/dL (02/22/19 7:55 AM) 75 mg/dL (02/19/19 7:17 AM) 87 mg/dL (02/16/19 8:21 AM) BUN HSL [8.0-26.0 mg/dL] 23.0 mg/dL (02/22/19 7:55 AM) 19.0 mg/dL (02/19/19 7:17 AM) 22.0 mg/dL (02/16/19 8:21 AM) Creatinine HSL [0.44-1.00 mg/dL] 0.81 mg/dL (02/22/19 7:55 AM) 0.78 mg/dL (02/19/19 7:17 AM) 0.74 mg/dL (02/16/19 8:21 AM) eGFR-AA HSL 142 *NA* (02/22/19 7:55 AM) 148 *NA* (02/19/19 7:17 AM) 157 *NA* (02/16/19 8:21 AM) eGFR-Non AA HSL 117 *NA* (02/22/19 7:55 AM) 122 *NA* (02/19/19 7:17 AM) 130 *NA* (02/16/19 8:21 AM) BUN/Creat Ratio HSL [5.0-20.0 ratio] 28.4 ratio *HI* (02/22/19 7:55 AM) 24.4 ratio *HI* (02/19/19 7:17 AM) 29.7 ratio *HI* (02/16/19 8:21 AM) Calcium Total HSL [8.9-10.3 mg/dL] 9.0 mg/dL (02/22/19 7:55 AM) 8.4 mg/dL *LOW* (02/19/19 7:17 AM) 8.0 mg/dL *LOW* (02/16/19 8:21 AM) Orders for Microbiology Reports Name Date Culture Urine HSL 02/18/19 Microbiology Reports TEST:Culture Urine HSL STATUS:Auth (Verified) BODY SITE: SOURCE:I/O Cath COLLECTED DATE/TIME:02/18/19 5:00 AM FINAL REPORT [place] count: >100,000 cfu/ml Klebsiella pneumoniae [place] count: >100,000 cfu/ml Klebsiella pneumoniae #2 Two morphologically different [place]. ORGANISM:Klebsiella pneumoniae ORGANISM:Klebsiella pneumoniae Vital Signs Most recent to oldest [Reference Range]: 1 2 3 Temperature Oral F [96.4-99.1 DegF] 98.1 DegF (02/24/19 7:51 AM) 97.6 DegF (02/23/19 7:40 PM) 98.0 DegF (02/23/19 4:38 PM) Peripheral Pulse Rate [60-100 bpm] 87 bpm (02/24/19 7:51 AM) 81 bpm (02/23/19 7:40 PM) 78 bpm (02/23/19 4:38 PM) Respiratory Rate [14-20 br/min] 18 br/min (02/24/19 7:51 AM) 18 br/min (02/23/19 7:40 PM) 18 br/min (02/23/19 4:38 PM) Blood Pressure [90-140/60-90 mmHg] 94/64mmHg (02/24/19 7:51 AM) 114/67mmHg (02/23/19 7:40 PM) Systolic Blood Pressure [90-140 mmHg] 145 mmHg *HI* (02/23/19 4:38 PM) Diastolic Blood Pressure [60-90 mmHg] 72 mmHg (02/23/19 4:38 PM) Extremity used to obtain blood pressure Right Arm (02/24/19 7:51 AM) Left Arm (02/23/19 7:40 PM) Right Arm (02/23/19 7:49 AM) Cuff Size. Medium (02/24/19 7:51 AM) Extra Long (02/23/19 7:40 PM) Medium (02/23/19 7:49 AM) Diastolic Blood Pressure with Activity [60-90 mmHg] 48 mmHg *LOW* (02/19/19 9:00 AM) 58 mmHg *LOW* (02/18/19 1:00 PM) 52 mmHg *LOW* (02/18/19 7:02 AM) Peripheral Pulse Rate with Activity 84 bpm (02/18/19 1:00 PM) 65 bpm (02/18/19 7:02 AM) Systolic Blood Pressure with Activity [90-140 mmHg] 76 mmHg *LOW* (02/19/19 9:00 AM) 93 mmHg (02/18/19 1:00 PM) 75 mmHg *LOW* (02/18/19 7:02 AM) Vital Signs w/ Activity Additional Info taken in sitting after pt. sat while grooming due to c/o dizziness in stance. 88/57, 73bpm after sitting for 5 min. (02/19/19 9:00 AM) Above: (sitting EOB post commode use) Laying in bed: 114/70, 63 HR, 95% (02/18/19 7:02 AM) Systolic Blood Pressure Post 99 (02/18/19 1:00 PM) Diastolic Blood Pressure Post 69 (02/18/19 1:00 PM) Oxygen Therapy Post Room air (02/18/19 1:00 PM) Temperature Oral [35.8-37.3 DegC] 37 DegC (02/20/19 8:57 AM) 36.6 DegC (02/17/19 8:47 PM) 36.6 DegC (02/17/19 9:17 AM)
== END ==
PROVIDERS: Visit Provider Dermatology
DX: Z00.00 Encounter for general adult medical examination without abnormal findings (principal)

== ENCOUNTER 2023-02-21 08:44 | Outpatient (CLI) | payer MEDICARE, OTHER, SELFPAY ==
[2023-02-21 09:30] VITALS: BP 123/68; PULSE 75; RESP 18; TEMP 36.8; O2SAT 98
== END 2023-02-21 09:49 | disposition home or self-care (01) ==
LOC: INF 08:45
PROVIDERS: PCP Family Medicine; Visit Provider Obstetrics & Gynecology
DX: M85.89 Other specified disorders of bone density and structure, multiple sites (principal)
CPT/HCPCS: 96372; J0897

== ENCOUNTER → 2023-03-08 09:20 | Outpatient (CLI) | payer MEDICARE, OTHER, SELFPAY ==
--- NOTE | 2023-03-08 09:21 | MM_ITS ---
PROCEDURE INFORMATION: Exam: MG Bilateral Screening 3D Mammography Exam date and time: 03/08/2023 9:26 AM Age: 78 years old Clinical indication: Screening mammogram TECHNIQUE: Imaging protocol: Bilateral Screening tomosynthesis and 2D mammography including computer-aided detection (CAD) when performed. COMPARISON: 1. MG MM DIG SCREENING MAMM BI W/CAD 09/18/2021 10:24 AM 2. MG MM DIG SCREENING MAMM BI W/CAD 09/10/2020 9:28 AM 3. MG SCBI MM Dig screening mamm BI w/CAD 05/29/2018 10:32 AM 4. MG SCBI MM Dig screening mamm BI w/CAD 05/12/2017 9:50 AM FINDINGS: MAMMOGRAPHY: Breast composition: There are scattered areas of fibroglandular density. Mass: Stable benign-appearing subcentimeter nodules are present in the left breast. No new or morphologically suspicious nodule has developed to suggest malignancy. Architectural distortion: No new or suspicious architectural distortion. Calcifications: No new or suspicious calcifications are present Asymmetric density: No new or suspicious asymmetric density is present Skin thickening: None. Axillary adenopathy: None. IMPRESSION: No mammographic evidence of malignancy. Recommend annual screening mammography unless otherwise clinically indicated. ASSESSMENT: BI-RADS category 2: Benign
--- NOTE | 2023-03-08 10:06 | XR_ITS ---
FINAL REPORT TECHNIQUE: Bone densitometry calculations of the lumbar spine and left hip were obtained. CLINICAL HISTORY: screening dexa scan FINDINGS: Using L1-4, the bone mineral density of the spine is 1.125 g/cm2, corresponding to T-score of 0.7. Using the left hip, the bone mineral density of the femoral neck is 0.764 g/cm2, corresponding to a T-score of -0.8. Using the right hip, the bone mineral density of the femoral neck is 0.757 g/cm2, corresponding to a T-score of -0.8. NOTE: T-score: Standard deviation compared with peak bone mass of young adult mean. *Following the recommendations of the International Society of Bone densitometry, classification of hip BMD is based on the lower of two T-scores; total hip or femoral neck. IMPRESSION: Normal bone mineral density of the lumbar spine and hip. FRAX was not reported because all of the T-scores are at or above -1.0 Reviewed, Interpreted and Dictated by Tonny Huffman MD Transcribed by Steffanie Nair Authenticated and [facility]
== END ==
PROVIDERS: PCP Family Medicine; Visit Provider Nurse Practitioner Obstetrics & Gynecology
DX: Z12.31 Encounter for screening mammogram for malignant neoplasm of breast (principal); Z78.0 Asymptomatic menopausal state
CPT/HCPCS: 77063; 77067; 77080

== ENCOUNTER 2023-08-23 18:00 | Outpatient (CLI) | payer MEDICARE, OTHER, SELFPAY | END 2023-08-23 23:59 | disposition home or self-care (01) | LOC: LAB.DROPOF 08-24 10:34 | PROVIDERS: PCP Nurse Practitioner; Visit Provider Nurse Practitioner | DX: B35.1 Tinea unguium (principal); B46.9 Zygomycosis, unspecified | CPT/HCPCS: 87102; 87206; 87220 ==

== ENCOUNTER 2023-08-29 10:08 | Outpatient (CLI) | payer MEDICARE, OTHER, SELFPAY ==
[2023-08-29] MEDS: DENOSUMAB 60 MG/ML SYRINGE SQ (10:30)
== END 2023-08-29 10:40 | disposition home or self-care (01) ==
LOC: INF 10:09
PROVIDERS: PCP Family Medicine; Visit Provider Obstetrics & Gynecology
DX: M85.80 Other specified disorders of bone density and structure, unspecified site (principal); Z79.620 Long term (current) use of immunosuppressive biologic
CPT/HCPCS: 96372; J0897

== ENCOUNTER 2023-09-28 10:06 | Outpatient (CLI) | payer MEDICARE, OTHER, SELFPAY ==
[2023-09-28 10:49] LABS: Basophils # 0.1 K/mm3 (0-0.2); Basophils % 1.3 % (0.1-2.0); Eosinophils # 0.1 K/mm3 (0.0-0.4); Hematocrit 37.7 % (37.0-47.0); Hemoglobin 12.1 g/dL (12.2-16.2); Lymphocytes # 1.6 K/mm3 (0.7-4.5); Lymphocytes % 29.3 % (10-50); Mean Corpuscular HGB Conc 32.1 g/dL (31.8-35.4); Mean Corpuscular Hemoglobin 31.5 pg (27.0-31.2); Mean Corpuscular Volume 98.2 fl (81-99); Mean Platelet Volume 7.6 fl (7.4-10.4); Monocytes # 0.4 K/mm3 (0.1-1.0); Monocytes % 6.3 % (1.7-9.3); Neutrophils # 3.4 K/mm3 (1.8-7.8); Neutrophils % 61.1 % (37.0-80.0); Platelet Count 223 K/mm3 (142-424); Red Blood Count 3.84 M/mm3 (4.20-5.40); Red Cell Distribution Width 16.3 % (11.5-17.5); White Blood Count 5.6 K/mm3 (4.8-10.8)
[2023-09-28 11:08] LABS: Alanine Aminotransferase 23 U/L (12-78); Albumin Level 4.1 g/dl (3.5-5.0); Albumin/Globulin Ratio 1.7 (1.1-1.8); Alkaline Phosphatase 54 U/L (38-126); Aspartate Amino Transferase 26 U/L (14-36); Bilirubin,Total 0.4 mg/dl (0.2-1.3); Blood Urea Nitrogen 28 mg/dl (7-17); Calcium 9.3 mg/dl (8.4-10.2); Carbon Dioxide 30 mmol/L (22.0-30.0); Chloride 106 mmol/L (98-107); Creatine Kinase 101 U/L (30-135); Estimated Glomerular Filt Rate 54 ml/min (>60); GFR (African American) 65 ML/MIN (>60); Globulin 2.4 g/dL (1.3-3.2); Glucose 84 mg/dl (74-100); Sodium 140 mmol/L (136-145); Total Protein,Serum 6.5 g/dl (6.3-8.2)
[2023-09-28 11:46] LABS: Erythrocyte Sedimentation Rate 14 mm/hr (0-30)
== END 2023-09-28 23:59 | disposition home or self-care (01) ==
LOC: LAB 10:07
PROVIDERS: PCP Family Medicine; Visit Provider Internal Medicine Rheumatology
DX: M33.90 Dermatopolymyositis, unspecified, organ involvement unspecified (principal); Z79.60 Long term (current) use of unspecified immunomodulators and immunosuppressants
CPT/HCPCS: 36415; 80053; 82550; 85025; 85651

== ENCOUNTER 2023-11-07 09:04 | Outpatient (CLI) | payer MEDICARE, OTHER, SELFPAY ==
--- NOTE | 2023-11-07 09:07 | XR_ITS ---
FINAL REPORT CLINICAL HISTORY: foot pain COMPARISON: None FINDINGS: LEFT FOOT Three views of the left foot demonstrate no acute fracture or dislocation. Hammertoe deformities are present involving the 2nd through 4th digits. The soft tissues are unremarkable. IMPRESSION: Hammertoe deformities are present, involving the 2nd through 4th digits. No acute bony abnormality is identified. Reviewed, Interpreted and Dictated by Tonny Huffman MD Transcribed by Tiffani Crowder Authenticated and . [facility]
--- NOTE | 2023-11-07 09:07 | XR_ITS ---
FINAL REPORT CLINICAL HISTORY: foot pain COMPARISON: None FINDINGS: RIGHT FOOT 3 views of the right foot were obtained. There is no acute fracture or dislocation. Hammertoe deformities are present involving the 2nd through 4th digits. Soft tissues are unremarkable. IMPRESSION: No acute bony abnormality. Hammertoe deformities are present involving the 2nd through 4th digits. Reviewed, Interpreted and Dictated by Tonny Huffman MD Transcribed by Tiffani Crowder Authenticated and . [facility]
== END 2023-11-07 23:59 | disposition home or self-care (01) ==
LOC: RAD 09:05
PROVIDERS: PCP Family Medicine; Visit Provider Podiatrist
DX: M20.41 Other hammer toe(s) (acquired), right foot (principal); M20.42 Other hammer toe(s) (acquired), left foot; M79.671 Pain in right foot; M79.672 Pain in left foot
CPT/HCPCS: 73630

== ENCOUNTER 2023-11-18 09:26 | Outpatient (CLI) | payer MEDICARE, OTHER, SELFPAY ==
--- NOTE | 2023-11-18 09:30 | US_ITS ---
FINAL REPORT CLINICAL HISTORY: DECREASED PEDAL PULSES,CLAUDICATION,REST PAIN COMPARISON: None FINDINGS: ANKLE-BRACHIAL PRESSURE INDICES Pressure indices are as follows: RIGHT LOWER EXTREMITY: Ankle-brachial pressure index: 1.24 Comments: Normal LEFT LOWER EXTREMITY: Ankle-brachial pressure index: 1.13 Comments: Normal CONCLUSION: No evidence of significant obstructive peripheral vascular disease of the lower extremities Reviewed, Interpreted and Dictated by Tonny Huffman MD Transcribed by Tiffani Crowder Authenticated and [facility]
== END 2023-11-18 23:59 | disposition home or self-care (01) ==
LOC: RT 09:27
PROVIDERS: PCP Family Medicine; Visit Provider Podiatrist
DX: R09.89 Other specified symptoms and signs involving the circulatory and respiratory systems (principal)
CPT/HCPCS: 93923

== ENCOUNTER 2023-12-29 10:14 | Outpatient (CLI) | payer MEDICARE, OTHER, SELFPAY ==
[2023-12-29 11:18] LABS: Basophils % 0.6 % (0.1-2.0); Eosinophils # 0.1 K/mm3 (0.0-0.4); Eosinophils % 1.5 % (0.1-12.0); Hematocrit 35.6 % (37.0-47.0); Hemoglobin 12.3 g/dL (12.2-16.2); Lymphocytes # 1.4 K/mm3 (0.7-4.5); Mean Corpuscular HGB Conc 34.5 g/dL (31.8-35.4); Mean Corpuscular Hemoglobin 32.5 pg (27.0-31.2); Mean Corpuscular Volume 94.1 fl (81-99); Mean Platelet Volume 7.7 fl (7.4-10.4); Monocytes # 0.5 K/mm3 (0.1-1.0); Monocytes % 7.2 % (1.7-9.3); Neutrophils # 4.7 K/mm3 (1.8-7.8); Neutrophils % 69.7 % (37.0-80.0); Platelet Count 199 K/mm3 (142-424); Red Blood Count 3.78 M/mm3 (4.20-5.40); Red Cell Distribution Width 15.8 % (11.5-17.5); White Blood Count 6.7 K/mm3 (4.8-10.8)
[2023-12-29 11:47] LABS: Alanine Aminotransferase 20 U/L (12-78); Albumin Level 4.1 g/dl (3.5-5.0); Albumin/Globulin Ratio 1.8 (1.1-1.8); Alkaline Phosphatase 40 U/L (38-126); Anion Gap 4.2 mEq/L (5-15); Aspartate Amino Transferase 24 U/L (14-36); Bilirubin,Total 0.5 mg/dl (0.2-1.3); Blood Urea Nitrogen 25 mg/dl (7-17); Calcium 9.3 mg/dl (8.4-10.2); Carbon Dioxide 30 mmol/L (22.0-30.0); Chloride 106 mmol/L (98-107); Creatine Kinase 67 U/L (30-135); Estimated Glomerular Filt Rate 48 ml/min (>60); GFR (African American) 58 ML/MIN (>60); Globulin 2.3 g/dL (1.3-3.2); Glucose 77 mg/dl (74-100); Potassium 4.2 mmoL/L (3.5-5.1); Sodium 136 mmol/L (136-145); Total Protein,Serum 6.4 g/dl (6.3-8.2)
[2023-12-29 12:36] LABS: Erythrocyte Sedimentation Rate 14 mm/hr (0-30)
== END 2023-12-29 23:59 | disposition home or self-care (01) ==
LOC: LAB 10:16
PROVIDERS: PCP Family Medicine; Visit Provider Internal Medicine Rheumatology
DX: M33.90 Dermatopolymyositis, unspecified, organ involvement unspecified (principal); Z79.60 Long term (current) use of unspecified immunomodulators and immunosuppressants
CPT/HCPCS: 36415; 80053; 82550; 85025; 85651

== ENCOUNTER 2024-03-16 15:00 | Outpatient (CLI) | payer MEDICARE, OTHER, SELFPAY ==
[2024-03-16] MEDS: ERTAPENEM SODIUM 1 GM VIAL IM (15:35)
[2024-03-16 15:36] VITALS: BP 135/78; PULSE 86; RESP 18; O2SAT 95
== END 2024-03-16 15:36 | disposition home or self-care (01) ==
LOC: INF 15:01
PROVIDERS: PCP Family Medicine; Visit Provider Family Medicine
DX: N39.0 Urinary tract infection, site not specified (principal)
CPT/HCPCS: 96372; J1335

== ENCOUNTER 2024-03-17 10:31 | Outpatient (CLI) | payer MEDICARE, OTHER, SELFPAY ==
[2024-03-17 10:53] VITALS: BP 138/87; PULSE 98; RESP 17; TEMP 36.4; O2SAT 94
[2024-03-17] MEDS: ERTAPENEM SODIUM 1 GM VIAL IM (11:10)
== END 2024-03-17 23:59 | disposition home or self-care (01) ==
LOC: INF 10:33
PROVIDERS: PCP Family Medicine; Visit Provider Family Medicine
DX: M81.0 Age-related osteoporosis without current pathological fracture (principal)
CPT/HCPCS: 96372; J1335

== ENCOUNTER 2024-03-18 10:05 | Outpatient (CLI) | payer MEDICARE, OTHER, SELFPAY ==
[2024-03-18] MEDS: ERTAPENEM SODIUM 1 GM VIAL IM (10:38)
== END 2024-03-18 10:45 | disposition home or self-care (01) ==
LOC: INF 10:07
PROVIDERS: PCP Family Medicine; Visit Provider Family Medicine
DX: N39.0 Urinary tract infection, site not specified (principal)
CPT/HCPCS: 96372; J1335

== ENCOUNTER 2024-03-19 09:44 | Outpatient (CLI) | payer MEDICARE, OTHER, SELFPAY ==
[2024-03-19 10:04] VITALS: BP 138/84; PULSE 88; RESP 18; TEMP 36.7; O2SAT 99; BMI 33.7
[2024-03-19] MEDS: ERTAPENEM SODIUM 1 GM VIAL IM (10:05)
== END 2024-03-19 10:08 | disposition home or self-care (01) ==
LOC: INF 09:46
PROVIDERS: PCP Family Medicine; Visit Provider Family Medicine
DX: B35.1 Tinea unguium (principal)
CPT/HCPCS: 96372; J1335

== ENCOUNTER 2024-03-20 09:49 | Outpatient (CLI) | payer MEDICARE, OTHER, SELFPAY ==
[2024-03-20 10:27] VITALS: BP 123/69; PULSE 98; RESP 14; TEMP 36.6; O2SAT 97
[2024-03-20] MEDS: ERTAPENEM SODIUM 1 GM VIAL IM (10:27)
== END 2024-03-20 10:40 | disposition home or self-care (01) ==
LOC: INF 09:50
PROVIDERS: PCP Family Medicine; Visit Provider Family Medicine
DX: M81.0 Age-related osteoporosis without current pathological fracture (principal)
CPT/HCPCS: 96372; J1335

== ENCOUNTER 2024-03-21 10:14 | Outpatient (CLI) | payer MEDICARE, OTHER, SELFPAY ==
[2024-03-21] MEDS: ERTAPENEM SODIUM 1 GM VIAL IM (11:08)
[2024-03-21 11:15] VITALS: BP 132/72; PULSE 87; RESP 17; TEMP 37; O2SAT 96
== END 2024-03-21 11:20 | disposition home or self-care (01) ==
PROVIDERS: PCP Family Medicine; Visit Provider Family Medicine
DX: M81.0 Age-related osteoporosis without current pathological fracture (principal)
CPT/HCPCS: 96372; J1335

== ENCOUNTER 2024-03-22 09:12 | Outpatient (CLI) | payer MEDICARE, OTHER, SELFPAY ==
[2024-03-22 09:38] VITALS: BP 109/69; PULSE 79; RESP 18; TEMP 36.2; O2SAT 97
[2024-03-22] MEDS: ERTAPENEM SODIUM 1 GM VIAL IM (09:39)
== END 2024-03-22 10:00 | disposition home or self-care (01) ==
LOC: INF 09:14
PROVIDERS: PCP Family Medicine; Visit Provider Family Medicine
DX: B35.1 Tinea unguium (principal)
CPT/HCPCS: 96372; J1335

== ENCOUNTER 2024-03-23 09:49 | Outpatient (CLI) | payer MEDICARE, OTHER, SELFPAY ==
[2024-03-23 10:14] VITALS: BP 136/75; PULSE 87; RESP 18; TEMP 36.6; O2SAT 97
[2024-03-23] MEDS: DENOSUMAB 60 MG/ML SYRINGE SUBCUT (10:15)
== END 2024-03-23 10:30 | disposition home or self-care (01) ==
LOC: INF 09:50
PROVIDERS: PCP Family Medicine; Visit Provider Obstetrics & Gynecology
DX: M81.0 Age-related osteoporosis without current pathological fracture (principal)
CPT/HCPCS: 96372; J0897

== ENCOUNTER 2024-05-18 10:49 | Outpatient (CLI) | payer MEDICARE, OTHER, SELFPAY ==
[2024-05-18 11:11] LABS: Basophils % 0.5 % (0.1-2.0); Eosinophils # 0.1 K/mm3 (0.0-0.4); Eosinophils % 1.8 % (0.1-12.0); Hematocrit 35.9 % (37.0-47.0); Hemoglobin 11.4 g/dL (12.2-16.2); Lymphocytes # 1.6 K/mm3 (0.7-4.5); Mean Corpuscular HGB Conc 31.8 g/dL (31.8-35.4); Mean Corpuscular Hemoglobin 29.7 pg (27.0-31.2); Mean Corpuscular Volume 93.5 fl (81-99); Mean Platelet Volume 9.7 fl (7.4-10.4); Monocytes # 0.6 K/mm3 (0.1-1.0); Monocytes % 7.6 % (1.7-9.3); Neutrophils # 5.4 K/mm3 (1.8-7.8); Neutrophils % 69.7 % (37.0-80.0); Platelet Count 200 K/mm3 (142-424); Red Blood Count 3.84 M/mm3 (4.20-5.40); Red Cell Distribution Width 14.6 % (11.5-17.5); White Blood Count 7.8 K/mm3 (4.8-10.8)
[2024-05-18 11:45] LABS: Alanine Aminotransferase 29 U/L (12-78); Albumin Level 4.3 g/dl (3.5-5.0); Alkaline Phosphatase 59 U/L (38-126); Aspartate Amino Transferase 29 U/L (14-36); Bilirubin,Total 0.4 mg/dl (0.2-1.3); Blood Urea Nitrogen 21 mg/dl (7-17); Calcium 9.1 mg/dl (8.4-10.2); Carbon Dioxide 29 mmol/L (22.0-30.0); Chloride 104 mmol/L (98-107); Creatine Kinase 79 U/L (30-135); Estimated Glomerular Filt Rate 61 ml/min (>60); GFR (African American) 73 ML/MIN (>60); Globulin 2.2 g/dL (1.3-3.2); Glucose 90 mg/dl (74-100); Sodium 137 mmol/L (136-145); Total Protein,Serum 6.5 g/dl (6.3-8.2)
[2024-05-18 11:50] LABS: Erythrocyte Sedimentation Rate 17 mm/hr (0-30)
== END 2024-05-18 23:59 | disposition home or self-care (01) ==
LOC: LAB 10:53
PROVIDERS: Internal Medicine Rheumatology; PCP Family Medicine; Visit Provider Family Medicine
DX: I82.452 Acute embolism and thrombosis of left peroneal vein (principal)
CPT/HCPCS: 36415; 80053; 82550; 85025; 85651

== ENCOUNTER 2024-06-15 10:54 | Outpatient (CLI) | payer MEDICARE, OTHER, SELFPAY ==
[2024-06-15] MEDS: ERTAPENEM SODIUM 1 GM VIAL IM (11:35)
[2024-06-15 11:36] VITALS: BP 128/82; PULSE 86; RESP 18; TEMP 36.4; O2SAT 94
== END 2024-06-15 11:49 | disposition home or self-care (01) ==
LOC: INF 10:56
PROVIDERS: PCP Family Medicine; Visit Provider Family Medicine
DX: N39.0 Urinary tract infection, site not specified (principal); B96.1 Klebsiella pneumoniae [K. pneumoniae] as the cause of diseases classified elsewhere
CPT/HCPCS: 96372; J1335

== ENCOUNTER 2024-06-16 14:03 | Outpatient (CLI) | payer MEDICARE, OTHER, SELFPAY ==
[2024-06-16] MEDS: ERTAPENEM SODIUM 1 GM VIAL IM (14:20)
== END 2024-06-16 23:59 | disposition home or self-care (01) ==
LOC: INF 14:05
PROVIDERS: PCP Family Medicine; Visit Provider Family Medicine
DX: N39.0 Urinary tract infection, site not specified (principal); B96.1 Klebsiella pneumoniae [K. pneumoniae] as the cause of diseases classified elsewhere
CPT/HCPCS: G0463; J1335

== ENCOUNTER 2024-06-17 12:24 | Outpatient (CLI) | payer MEDICARE, OTHER, SELFPAY ==
[2024-06-17] MEDS: ERTAPENEM SODIUM 1 GM VIAL IM (13:13)
== END 2024-06-17 13:16 | disposition home or self-care (01) ==
LOC: INF 12:27
PROVIDERS: PCP Family Medicine; Visit Provider Family Medicine
DX: N39.0 Urinary tract infection, site not specified (principal); B96.1 Klebsiella pneumoniae [K. pneumoniae] as the cause of diseases classified elsewhere
CPT/HCPCS: G0463; J1335

== ENCOUNTER 2024-06-18 14:26 | Outpatient (CLI) | payer MEDICARE, OTHER, SELFPAY ==
[2024-06-18 14:46] VITALS: BP 147/88; PULSE 75; RESP 16; TEMP 36.4; O2SAT 98
[2024-06-18] MEDS: ERTAPENEM SODIUM 1 GM VIAL IM (15:13)
== END 2024-06-18 15:23 | disposition home or self-care (01) ==
LOC: INF 14:27
PROVIDERS: PCP Family Medicine; Visit Provider Family Medicine
DX: I73.00 Raynaud's syndrome without gangrene (principal)
CPT/HCPCS: 96372; J1335

== ENCOUNTER 2024-06-19 14:22 | Outpatient (CLI) | payer MEDICARE, OTHER, SELFPAY ==
[2024-06-19 14:42] VITALS: BP 119/71; PULSE 93; RESP 18; TEMP 37.3; O2SAT 98
[2024-06-19] MEDS: ERTAPENEM SODIUM 1 GM VIAL IM (14:42)
== END 2024-06-19 14:55 | disposition home or self-care (01) ==
LOC: INF 14:23
PROVIDERS: PCP Family Medicine; Visit Provider Family Medicine
DX: B35.1 Tinea unguium (principal)
CPT/HCPCS: 96372; J1335

== ENCOUNTER 2024-08-14 10:29 | Outpatient (CLI) | payer MEDICARE, OTHER, SELFPAY ==
--- OUTSIDE RECORDS SUMMARY | 2024-08-14 10:32 | XMS_ITS | Data Portability ---
Author Organization NANCY - GILES NoelS SKAMOKAWA CLOSED Address [address] [place] [address] Care Team Providers Care Ballet Dancer Name Role Phone BRISEIDA ADAM Neurologist JACKIE RODRÍGUEZ Primary Care Provider ADAM MITCHELL Volunteer Manager NATHAN AMATO Brick Setter [phone] Assessment Encounter Date Assessment Date Assessment LastModified by Organization Details LastModified Time 05/30/2024 05/30/2024 79-year-old fema le with dermatomyositis and interstitial lung disease. Follow-up visit. 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 Neurologically she has been stable. Will have f/u one year [email or web address] Not available 06/04/2024 17:25:38 Plan of Treatment Reminders Order Date Submit Date Provider Last Modified By Organization Details Last Modified Time Details Appointments RHEUM RECHECK 2024 03:30P M ADAM MITCHELL MD Not available Not available Not available NEUROLOG Y RECHECK 2025 10:30A M BRISEIDA ADAM MD Not available Not available Not available Lab CBC w/ auto diff 2024 025 [facility] (Lab), [address] [place] [address] [address], [place], [address], 06/06/2024 08:01:44 ESR (erythro cyte sediment ation rate), blood [address] (Lab), [address], [place], [address], 06/06/2024 08:01:44 ALT (alanine aminotra nsferase ), serum or plasma [address] (Lab), [address], [place], [address], 06/06/2024 08:01:44 AST/SGOT (asparta te aminotra nsferase ), serum or plasma [address] (Lab), [address], [place], [address], 06/06/2024 08:01:44 creatini ne, serum or plasma [address] (Lab), [address], [place], [address], 06/08/2024 08:17:07 CK (creatin e kinase), total, serum [address] (Lab), [address], [place], [address], 06/06/2024 08:01:44 protein: creatini ne ratio, urine [address] (Lab), [address], [place], [address], 06/06/2024 08:01:44 urinalys is panel, auto 2023 024 [facility], [address], [place], [address], 03/08/2024 12:01:48 culture, urine 2023 024 [facility], [address] [place] [address], [address], 03/09/2024 10:50:04 urinalys is panel, auto 2023 024 [facility], [address] [place] [address], [address], [address], 02/21/2024 11:53:48 culture, urine 2023 024 [facility], [address] [place] [address], [address], 02/22/2024 09:48:38 urinalys is panel, auto 2023 024 [facility], [address], [address], [place], [address], 02/02/2024 12:13:44 culture, urine 2023 024 [facility], [address] [place] [address], [address], 02/03/2024 11:39:17 Referral None recorded . Procedures None recorded . Surgeries None recorded . Imaging None recorded . Medication Orders furosemi de 20 mg tablet [address] [facility], [address] [place] [address], [address], 05/30/2024 11:19:19 potassiu m chloride ER 10 mEq tablet,e xtended release [address] [facility], [address] [place] [address], [address], 05/30/2024 11:19:19 Macrobid 100 mg capsule 2023 024 [facility], [address], [address], 03/08/2024 10:00:17 Bactrim DS 800 mg-160 mg tablet 2023 024 [facility], [address], [address], 02/21/2024 11:54:00 Macrobid 100 mg capsule 2023 024 [facility], [address], [address], 02/02/2024 12:05:04 Patient TargetsNo targets recorded. Patient InstructionsNo instructions recorded. Reason for Referral None Reported. Results Created Date Observation Date Name Description Value Unit Range Abnormal Flag Note LastModifiedBy Organization Detail LastModifiedTime 02/02/2002/02/2024 URINE CULTU RE esbl escherichia coli Organi sm: ESBL Escher ichia coli Not Available [facility] [address] [place] [address], [address], 02/04/2024 16:42:01 02/02/20 24 02/04/2024 URINE CULTU RE urine culture abnormal ISOLA TE #1 COLON Y COUNT : 10,00 0 - 100,0 00 CFU/M L Proba ble Gram Negat stan Bacil abdirizak. ID and sensi tivit y in progr ess. See [place] te Resul t(s) Below ESBL Esche bo a coli Not Available [facility] [address] [place] [address], [address], 02/04/2024 16:42:01 02/02/20 24 02/04/2024 URINE CULTU RE amox/K clav'ate(C) <=8/4 ug/mL susceptib le Not Available [facility] [address] [place] [address], [address], 02/04/2024 16:42:01 02/02/20 24 02/04/2024 URINE CULTU RE ampicillin >16 ug/mL resistant Not Available [facility] [address] [place] [address], [address], 02/04/2024 16:42:01 02/02/20 24 02/04/2024 URINE CULTU RE cefazolin >16 ug/mL resistant Not Available [facility] [address] [place] [address], [address], 02/04/2024 16:42:01 02/02/20 24 02/04/2024 URINE CULTU RE cefuroxime >16 ug/mL resistant Not Available [facility] [address] [place] [address], [address], 02/04/2024 16:42:01 02/02/20 24 02/04/2024 URINE CULTU RE ciprofloxaci n >2 ug/mL resistant Not Available [facility] [address] [place] [address], [address], 02/04/2024 16:42:01 02/02/20 24 02/04/2024 URINE CULTU RE gentamicin <=4 ug/mL susceptib le Not Available [facility] [address] [place] [address], [address], 02/04/2024 16:42:01 02/02/20 24 02/04/2024 URINE CULTU RE imipenem <=1 ug/mL susceptib le Not Available [facility] [address] [place] [address], [address], 02/04/2024 16:42:01 02/02/20 24 02/04/2024 URINE CULTU RE levofloxacin >4 ug/mL resistant Not Available [facility] [address] [place] [address], [address], 02/04/2024 16:42:01 02/02/20 24 02/04/2024 URINE CULTU RE nitrofuranto in <=32 ug/mL susceptib le Not Available [facility] [address] [place] [address], [address], 02/04/2024 16:42:01 02/02/20 24 02/04/2024 URINE CULTU RE piperacillin /kari <=16 ug/mL susceptib le Not Available [facility] [address] [place] [address], [address], 02/04/2024 16:42:01 02/02/20 24 02/04/2024 URINE CULTU RE tetracycline >8 ug/mL resistant Not Available [facility] [address] [place] [address], [address], 02/04/2024 16:42:01 02/02/20 24 02/04/2024 URINE CULTU RE tobramycin <=2 ug/mL susceptib le Not Available [facility] [address] [place] [address], [address], 02/04/2024 16:42:01 02/02/20 24 02/04/2024 URINE CULTU RE trimeth/sulf a <=2/38 ug/mL susceptib le Not Available [facility] [address] [place] [address], [address], 02/04/2024 16:42:01 02/02/20 24 02/02/2024 urina lysis panel , auto Unknown Analyte Clean Catch Not Available [facility] [place] [address], [place], [address], 02/02/2024 11:40:47 02/02/2002/02/2024 urina lysis panel , auto Unknown Analyte Yellow Not Available [facility] [address], [place], [address], 02/02/2024 11:40:47 02/02/2002/02/2024 urina lysis panel , auto Unknown Analyte Cloudy Not Available [facility] [address], [place], [address], 02/02/2024 11:40:47 02/02/2002/02/2024 urina lysis panel , auto Unknown Analyte 1.005 Not Available [facility] [address], [place], [address], 02/02/2024 11:40:47 02/02/2002/02/2024 urina lysis panel , auto Unknown Analyte 1.003- 1.035 Not Available [facility] [address], [place], [address], 02/02/2024 11:40:47 02/02/2002/02/2024 urina lysis panel , auto Unknown Analyte 5.0 Not Available [facility] [address], [place], [address], 02/02/2024 11:40:47 02/02/2002/02/2024 urina lysis panel , auto Unknown Analyte 5.0-8. 0 Not Available [facility] [address], [place], [address], 02/02/2024 11:40:47 02/02/2002/02/2024 urina lysis panel , auto Unknown Analyte 500 Moose/ul (++) Not Available [facility] [address], [place], [address], 02/02/2024 11:40:47 02/02/2002/02/2024 urina lysis panel , auto Unknown Analyte Negati ve Not Available [facility] [address], [place], [address], 02/02/2024 11:40:47 02/02/2002/02/2024 urina lysis panel , auto Unknown Analyte Negati ve Not Available [facility] [address], [place], [address], 02/02/2024 11:40:47 02/02/2002/02/2024 urina lysis panel , auto Unknown Analyte Negati ve Not Available [facility] [address], [place], [address], 02/02/2024 11:40:47 02/02/2002/02/2024 urina lysis panel , auto Unknown Analyte Negati ve Not Available [facility] [address], [place], [address], 02/02/2024 11:40:47 02/02/2002/02/2024 urina lysis panel , auto Unknown Analyte Negati ve Not Available [facility] [address], [place], [address], 02/02/2024 11:40:47 02/02/2002/02/2024 urina lysis panel , auto Unknown Analyte Normal Not Available [facility] [address], [place], [address], 02/02/2024 11:40:47 02/02/2002/02/2024 urina lysis panel , auto Unknown Analyte Normal Not Available [facility] [address], [place], [address], 02/02/2024 11:40:47 02/02/2002/02/2024 urina lysis panel , auto Unknown Analyte Negati ve Not Available [facility] [address], [place], [address], 02/02/2024 11:40:47 02/02/2002/02/2024 urina lysis panel , auto Unknown Analyte Negati ve Not Available [facility] [address], [place], [address], 02/02/2024 11:40:47 02/02/2002/02/2024 urina lysis panel , auto Unknown Analyte Normal Not Available [facility] [address], [place], [address], 02/02/2024 11:40:47 02/02/2002/02/2024 urina lysis panel , auto Unknown Analyte Normal 1 mg/dl Not Available [facility] [address], [place], [address], 02/02/2024 11:40:47 02/02/2002/02/2024 urina lysis panel , auto Unknown Analyte Negati ve Not Available [facility] [address], [place], [address], 02/02/2024 11:40:47 02/02/2002/02/2024 urina lysis panel , auto Unknown Analyte Negati ve Not Available [facility] [address], [place], [address], 02/02/2024 11:40:47 02/02/20 24 02/02/2024 urina lysis panel , auto Unknown Analyte Trace Not Available [facility] [address], [place], [address], 02/02/2024 11:40:47 02/02/2002/02/2024 urina lysis panel , auto Unknown Analyte Negati ve Not Available [facility] [address], [place], [address], 02/02/2024 11:40:47 02/21/2002/23/2024 URINE CULTU RE urine culture No growth day 2. Not Available [facility] [address], [place], [address], 02/23/2024 11:07:27 02/21/20 24 02/21/2024 urina lysis panel , auto Unknown Analyte Clean Catch Not Available [facility] [address], [place], [address], 02/21/2024 11:46:03 02/21/20 24 02/21/2024 urina lysis panel , auto Unknown Analyte Yellow Not Available [facility] [address], [place], [address], 02/21/2024 11:46:03 02/21/20 24 02/21/2024 urina lysis panel , auto Unknown Analyte Cloudy Not Available [facility] [address], [place], [address], 02/21/2024 11:46:03 02/21/20 24 02/21/2024 urina lysis panel , auto Unknown Analyte 1.005 Not Available [facility] [address], [place], [address], 02/21/2024 11:46:03 02/21/20 24 02/21/2024 urina lysis panel , auto Unknown Analyte 1.003- 1.035 Not Available [facility] [address], [place], [address], 02/21/2024 11:46:03 02/21/20 24 02/21/2024 urina lysis panel , auto Unknown Analyte 6.0 Not Available [facility] [address], [place], [address], 02/21/2024 11:46:03 02/21/20 24 02/21/2024 urina lysis panel , auto Unknown Analyte 5.0-8. 0 Not Available [facility] [address], [place], [address], 02/21/2024 11:46:03 02/21/20 24 02/21/2024 urina lysis panel , auto Unknown Analyte 500 Moose/ul (++) Not Available [facility] [address], [place], [address], 02/21/2024 11:46:03 02/21/20 24 02/21/2024 urina lysis panel , auto Unknown Analyte Negati ve Not Available [facility] [address], [place], [address], 02/21/2024 11:46:03 02/21/20 24 02/21/2024 urina lysis panel , auto Unknown Analyte Negati ve Not Available [facility] [address], [place], [address], 02/21/2024 11:46:03 02/21/20 24 02/21/2024 urina lysis panel , auto Unknown Analyte Negati ve Not Available [facility] [address], [place], [address], 02/21/2024 11:46:03 02/21/20 24 02/21/2024 urina lysis panel , auto Unknown Analyte Trace Not Available [facility] [address], [place], [address], 02/21/2024 11:46:03 02/21/20 24 02/21/2024 urina lysis panel , auto Unknown Analyte Negati ve Not Available [facility] [address], [place], [address], 02/21/2024 11:46:03 02/21/20 24 02/21/2024 urina lysis panel , auto Unknown Analyte Normal Not Available [facility] [address], [place], [address], 02/21/2024 11:46:03 02/21/20 24 02/21/2024 urina lysis panel , auto Unknown Analyte Normal Not Available [facility] [address], [place], [address], 02/21/2024 11:46:03 02/21/20 24 02/21/2024 urina lysis panel , auto Unknown Analyte Negati ve Not Available [facility] [address], [place], [address], 02/21/2024 11:46:03 02/21/20 24 02/21/2024 urina lysis panel , auto Unknown Analyte Negati ve Not Available [facility] [address], [place], [address], 02/21/2024 11:46:03 02/21/20 24 02/21/2024 urina lysis panel , auto Unknown Analyte Normal Not Available [facility] [address], [place], [address], 02/21/2024 11:46:03 02/21/2002/21/2024 urina lysis panel , auto Unknown Analyte Normal 1 mg/dl Not Available [facility] [address], [place], [address], 02/21/2024 11:46:03 02/21/20 24 02/21/2024 urina lysis panel , auto Unknown Analyte Negati ve Not Available [facility] [address], [place], [address], 02/21/2024 11:46:03 02/21/20 24 02/21/2024 urina lysis panel , auto Unknown Analyte Negati ve Not Available [facility] [address], [place], [address], 02/21/2024 11:46:03 02/21/20 24 02/21/2024 urina lysis panel , auto Unknown Analyte Negati ve Not Available [facility] [address], [place], [address], 02/21/2024 11:46:03 02/21/20 24 02/21/2024 urina lysis panel , auto Unknown Analyte Negati ve Not Available [facility] [address], [place], [address], 02/21/2024 11:46:03 03/08/20 24 03/08/2024 URINE CULTU RE extended spectrum beta-lactama se producing klebsiella pneumoniae Organi sm: Extend ed spectr um beta-l actama se produc ing Klebsi yuriy pneumo niae Not Available [facility] [address] [place], [address], 03/10/2024 09:37:13 03/08/20 24 03/10/2024 URINE CULTU RE urine culture abnormal ISOLA TE #1 COLON Y COUNT : > 100,0 00 CFU/M L Proba ble Gram Negat stan Bacil abdirizak. ID and sensi tivit y in progr ess. See [place] te Resul t(s) Below Exten ded spect rum beta- lacta yani produ cing Klebs iella pneum oniae Not Available [facility] [address] [place], [address], 03/10/2024 09:37:13 03/08/20 24 03/10/2024 URINE CULTU RE amox/K clav'ate(C) <=8/4 ug/mL susceptib le Not Available [facility] [address] [place], [address], 03/10/2024 09:37:13 03/08/20 24 03/10/2024 URINE CULTU RE ampicillin >16 ug/mL resistant Not Available [facility] [address] [place] [address], [address], 03/10/2024 09:37:13 03/08/20 24 03/10/2024 URINE CULTU RE cefazolin >16 ug/mL resistant Not Available [facility] [address] [place] [address], [address], 03/10/2024 09:37:13 03/08/20 24 03/10/2024 URINE CULTU RE cefuroxime >16 ug/mL resistant Not Available [facility] [address] [place] [address], [address], 03/10/2024 09:37:13 03/08/20 24 03/10/2024 URINE CULTU RE ciprofloxaci n 0.5 ug/mL intermedi ate Not Available [facility] [address] [place] [address], [address], 03/10/2024 09:37:13 03/08/20 24 03/10/2024 URINE CULTU RE gentamicin <=4 ug/mL susceptib le Not Available [facility] [address] [place] [address], [address], 03/10/2024 09:37:13 03/08/20 24 03/10/2024 URINE CULTU RE imipenem <=1 ug/mL susceptib le Not Available [facility] [address] [place] [address], [address], 03/10/2024 09:37:13 03/08/20 24 03/10/2024 URINE CULTU RE levofloxacin <=0.5 ug/mL susceptib le Not Available [facility] [address] [place] [address], [address], 03/10/2024 09:37:13 03/08/20 24 03/10/2024 URINE CULTU RE nitrofuranto in >64 ug/mL resistant Not Available [facility] [address] [place], [address], 03/10/2024 09:37:13 03/08/20 24 03/10/2024 URINE CULTU RE piperacillin /kari <=16 ug/mL susceptib le Not Available [facility] [address] [place] [address], [address], 03/10/2024 09:37:13 03/08/20 24 03/10/2024 URINE CULTU RE tetracycline >8 ug/mL resistant Not Available [facility] [address] [place], [address], 03/10/2024 09:37:13 03/08/20 24 03/10/2024 URINE CULTU RE tobramycin <=2 ug/mL susceptib le Not Available [facility] [address] [place] [address], [address], 03/10/2024 09:37:13 03/08/20 24 03/10/2024 URINE CULTU RE trimeth/sulf a >2/38 ug/mL resistant Not Available [facility] [address] [place] [address], [address], 03/10/2024 09:37:13 03/08/20 24 03/08/2024 urina lysis panel , auto Unknown Analyte Clean Catch Not Available [facility] [address], [place], [address], 03/08/2024 09:32:30 03/08/20 24 03/08/2024 urina lysis panel , auto Unknown Analyte Yellow Not Available [facility] [address], [place], [address], 03/08/2024 09:32:30 03/08/20 24 03/08/2024 urina lysis panel , auto Unknown Analyte Cloudy Not Available [facility] [address], [place], [address], 03/08/2024 09:32:30 03/08/20 24 03/08/2024 urina lysis panel , auto Unknown Analyte 1.000 Not Available [facility] [address], [place], [address], 03/08/2024 09:32:30 03/08/20 24 03/08/2024 urina lysis panel , auto Unknown Analyte 1.003- 1.035 Not Available [facility] [address], [place], [address], 03/08/2024 09:32:30 03/08/20 24 03/08/2024 urina lysis panel , auto Unknown Analyte 6.0 Not Available [facility] [address], [place], [address], 03/08/2024 09:32:30 03/08/20 24 03/08/2024 urina lysis panel , auto Unknown Analyte 5.0-8. 0 Not Available [facility] [address], [place], [address], 03/08/2024 09:32:30 03/08/20 24 03/08/2024 urina lysis panel , auto Unknown Analyte 500 Moose/ul (++) Not Available [facility] [address], [place], [address], 03/08/2024 09:32:30 03/08/20 24 03/08/2024 urina lysis panel , auto Unknown Analyte Negati ve Not Available [facility] [address], [place], [address], 03/08/2024 09:32:30 03/08/20 24 03/08/2024 urina lysis panel , auto Unknown Analyte POSITI VE (Abnor mal) Not Available [facility] [address], [place], [address], 03/08/2024 09:32:30 03/08/20 24 03/08/2024 urina lysis panel , auto Unknown Analyte Negati ve Not Available [facility] [address], [place], [address], 03/08/2024 09:32:30 03/08/20 24 03/08/2024 urina lysis panel , auto Unknown Analyte 30 mg/dl (+) Not Available [facility] [address], [place], [address], 03/08/2024 09:32:30 03/08/20 24 03/08/2024 urina lysis panel , auto Unknown Analyte Negati ve Not Available [facility] [address], [place], [address], 03/08/2024 09:32:30 03/08/20 24 03/08/2024 urina lysis panel , auto Unknown Analyte Normal Not Available [facility] [address], [place], [address], 03/08/2024 09:32:30 03/08/20 24 03/08/2024 urina lysis panel , auto Unknown Analyte Normal Not Available [facility] [address], [place], [address], 03/08/2024 09:32:30 03/08/20 24 03/08/2024 urina lysis panel , auto Unknown Analyte Negati ve Not Available [facility] [address], [place], [address], 03/08/2024 09:32:30 03/08/20 24 03/08/2024 urina lysis panel , auto Unknown Analyte Negati ve Not Available [facility] [address], [place], [address], 03/08/2024 09:32:30 03/08/20 24 03/08/2024 urina lysis panel , auto Unknown Analyte 1 mg/dl Not Available [facility] [address], [place], [address], 03/08/2024 09:32:30 03/08/20 24 03/08/2024 urina lysis panel , auto Unknown Analyte Normal 1 mg/dl Not Available [facility] [address], [place], [address], 03/08/2024 09:32:30 03/08/20 24 03/08/2024 urina lysis panel , auto Unknown Analyte 1 mg/dl (+) Not Available [facility] [address], [place], [address], 03/08/2024 09:32:30 03/08/20 24 03/08/2024 urina lysis panel , auto Unknown Analyte Negati ve Not Available [facility] [address], [place], [address], 03/08/2024 09:32:30 03/08/20 24 03/08/2024 urina lysis panel , auto Unknown Analyte 50 José Antonio/ul Not Available [facility] [address] [facility] [address], [place], [address], 03/08/2024 09:32:30 03/08/20 24 03/08/2024 urina lysis panel , auto Unknown Analyte Negati ve Not Available [facility] [address], [place], [address], 03/08/2024 09:32:30 Result Notes None recorded. Problems No Known Problems Procedures Surgical History Date Name Laterality Status Provider Name and Address Organization Details Recorded Time 024 Injection Joint/Bursa, Major, w/o US completed ADAM MITCHELL MD [address] [place] [address], [phone], [facility] 01/05/2024 12:43:16 024 EKG completed NATHAN AMATO MD [address] [place] [address], [address], [facility] 05/26/2023 13:57:01 023 PNE Implantation; Sacral Nerve completed YUKI LOCKWOOD MD [address] [place] [address], [address], [facility] 09/09/2022 17:41:58 021 Electromyography (EMG) with Nerve Conduction Study (NCV) completed Mignon hSukla (Nicky) [facility] 06/30/2020 12:26:30 020 PTNM; single treatment completed Vonnie Charles [facility] 01/23/2020 11:06:00 020 PTNM; single treatment completed Vonnie Charles [facility] 01/17/2020 13:46:10 020 PTNM; single treatment completed Deisy Cullen [facility] 01/10/2020 13:29:52 020 PTNM; single treatment completed Domi Graham [facility] 01/02/2020 14:29:18 020 PTNM; single treatment completed Domi Graham [facility] 12/26/2019 13:31:28 020 PTNM; single treatment completed Domi Graham [facility] 12/19/2019 13:26:14 020 PTNM; single treatment completed Domi Graham [place] [facility] 12/13/2019 13:51:54 020 PTNM; single treatment completed Domi Graham [facility] 12/05/2019 14:03:25 020 PTNM; single treatment completed Adela Valentin [facility] 11/28/2019 15:47:10 020 PTNM; single treatment completed Domi Graham [facility] 11/21/2019 14:07:01 020 PTNM; single treatment completed Domi Graham [facility] 11/14/2019 15:11:05 020 PTNM; single treatment completed Shaan Holloway [facility] 11/07/2019 14:04:30 020 Urodynamics Interpretation completed CANDY [place], [address], [facility] 06/01/2019 14:09:09 020 Urodynamics completed Vonnie Charles [facility] 06/01/2019 11:52:12 020 Post Void Residual; Catheter completed Chanda Bailey [facility] 05/21/2019 14:52:47 020 repair of fistula of cervix completed Vickie Medina [facility] 12/09/2022 13:17:55 014 repair of stress incontinence by suprapubic sling completed [facility] 02/05/2019 08:25:02 010 repair of stress incontinence by suprapubic sling completed [facility] 02/05/2019 08:25:00 Imaging Results None recorded. Procedure Notes None recorded. Medical Equipment None Reported. Allergies Allergen ID Allergen Name Allergen Category Reaction Reaction Severity Criticality Documentation Date Start Date Code Code System Note Provider Name and Address Organization Details Recorded Time 598659 Product containin g penicilli n (product) medicatio n Not available Not available Not available 05/21/2019 82673 8001 SNOMED Chanda Bailey [facility] 0 14:08:26 609686 lisinopri l medicatio n Not available Not available Not available 05/21/2019 17833 RxNorm Chanda Bailey [facility] 0 14:08:31 732151 tramadol medicatio n rash Not available Not available 08/14/2019 48745 RxNorm swoll en eyes Olena e Luis Albertole [facility] 0 09:18:52 Medications Name Sig Start Date Stop Date Status Note LastModified by Organization Details LastModified Time spray kit 5ml USE FIVE ML FOR MEDICATIO N ADMINISTR ATION WITH SPRAY BOTTLE- DIRECTION S FOR USE (SK), #2 30ML SPRAY BOTTLES, #1 FUNNEL, SALINE 5ML VIALS #300ML active Not Available Not Available No t Available gentamicin 60mg xylitol capsule [22795] MIX THE CONTENTS OF 1 CAPSULE WITH DILUENT. APPLY TO AFFECTED AREAS. PERFORM TWICE DAILY. active Not Available Not Available No t Available clindamycin /mupirocin/ itraconazol e 150/20/50mg topical capsule [89299] MIX THE CONTENTS OF 1 CAPSULE WITH DILUENT. APPLY TO AFFECTED AREAS. PERFORM TWICE DAILY. active Not Available Not Available No t Available celecoxib 200 mg capsule TAKE 1 CAPSULE BY MOUTH ONCE DAILY FOR 90 DAYS 03/03 completed Not Available Not Available Not Available promethazin e-DM 6.25 mg-15 mg/5 mL oral syrup TAKE 5 ML BY MOUTH EVERY 6 HOURS NEEDED 10/20 completed Not Available Not Available Not Available prednisone 10 mg tablet Take 2 tablets every day by oral route for 30 days. 05/25 completed Not Available Not Available Not Available oxybutynin chloride ER 15 mg tablet,exte nded release 24 hr Take 1 tablet by mouth once daily 2023 active Not Available Not Available Not Avai lable doxycycline hyclate 100 mg capsule TAKE 1 CAPSULE BY MOUTH ONCE DAILY AT BEDTIME 08/09 completed Not Available Not Available Not Available cefuroxime axetil 250 mg tablet 07/11 completed Not Available Not Available Not Available atorvastati n 10 mg tablet 03/06 completed Not Available Not Available Not Available oxybutynin chloride ER 10 mg tablet,exte nded release 24 hr TAKE 1 TABLET BY MOUTH TWICE DAILY 10/29 completed Not Available Not Available Not Available azithromyci n 250 mg tablet TAKE 2 TABLETS BY MOUTH ON DAY 1, AND THEN TAKE 1 TABLET BY MOUTH ONCE A DAY ON DAY 2 THROUGH DAY 5 12/09 completed Not Available Not Available Not Available bethanechol chloride 10 mg tablet TID 05/31 completed Not Available Not Available Not Available fluconazole 150 mg tablet TAKE 1 TABLET BY MOUTH ONCE DAILY active Not Available Not Available No t Available mycophenola te mofetil 250 mg capsule Take 2 capsules by mouth twice daily 2024 active Not Available Not Available Not Avai lable Claritin 10 mg tablet Take 1 tablet every day by oral route. 05/25 completed Not Available Not Available Not Available famotidine 40 mg tablet TAKE 1 TABLET BY MOUTH ONCE DAILY active Not Available Not Available No t Available prednisone 20 mg tablet TAKE 4 TABLETS BY MOUTH ONCE DAILY FOR 5 DAYS THEN 3 ONCE DAILY FOR 10 DAYS THEN 2 & 1/2 (TWO & ONE-HALF) ONCE DAILY FOR 10 DAYS THEN 2 ONCE DAILY FOR 10 DAYS 05/25 completed Not Available Not Available Not Available sertraline 100 mg tablet Take 1 tablet every day by oral route. 07/11 completed Not Available Not Available Not Available prednisone 5 mg tablet Take 1 tablet by mouth once daily 2023 active Not Available Not Available Not Avai lable potassium chloride ER 10 mEq tablet,exte nded release Take 1 tablet 3 times a week by oral route for 30 days. 2024 active Not Available Not Available Not Avai lable ciprofloxac in 250 mg tablet TAKE 1 TABLET BY MOUTH EVERY 12 HOURS FOR 10 DAYS 03/03 completed Not Available Not Available Not Available levofloxaci n 250 mg tablet Take 1 tablet every day by oral route for 14 days. 07/11 completed Not Available Not Available Not Available ciprofloxac in 500 mg tablet TAKE 1 TABLET BY MOUTH EVERY 12 HOURS 08/09 completed Not Available Not Available Not Available hydrocodone 10 mg-acetamin ophen 325 mg tablet Take 1 tablet every 4 hours by oral route. 10/20 completed Not Available Not Available Not Available doxycycline monohydrate 100 mg tablet 12/09 completed Not Available Not Available Not Available tramadol 50 mg tablet 1 in am x one wk, then 1 bid. May increase to 1 tid if needed. 07/09 completed Not Available Not Available Not Available triamcinolo ne acetonide 0.1 % topical cream APPLY CREAM EXTERNALL Y TO AFFECTED AREA TWICE DAILY 12/09 completed Not Available Not Available Not Available Depo-Medrol 80 mg/mL suspension for injection Take 1.5 mL by injection route. 2023 active Not Available Not Available Not Avai lable Macrobid 100 mg capsule Take 1 capsule every 12 hours by oral route for 10 days. 2023 active Not Available Not Available Not Avai lable cefadroxil 500 mg capsule Take 2 capsules every day by oral route. 05/25 completed Not Available Not Available Not Available famotidine 20 mg tablet 07/09 completed Not Available Not Available Not Available methotrexat e sodium 2.5 mg tablet TAKE 8 TABLETS BY MOUTH ONCE A WEEK 2023 active Not Available Not Available Not Avai lable doxycycline monohydrate 100 mg capsule TAKE 1 CAPSULE BY MOUTH TWICE DAILY FOR 10 DAYS 10/20 completed Not Available Not Available Not Available dexamethaso ne 2 mg tablet TAKE 1 TABLET BY MOUTH TWICE DAILY FOR 5 DAYS 07/09 completed Not Available Not Available Not Available hydrocodone 7.5 mg-acetamin ophen 325 mg tablet 02/05 completed Not Available Not Available Not Available prednisone 2.5 mg tablet TAKE 3 TABLETS BY MOUTH DAILY FOR 2 WEEKS, THEN TAKE 2 TABLETS DAILY 05/25 completed Not Available Not Available Not Available pantoprazol e 40 mg tablet,ulises yed release TAKE 1 TABLET BY MOUTH ONCE DAILY 12/09 completed Not Available Not Available Not Available acyclovir 5 % topical ointment APPLY TO THE AFFECTED AREA(S) BY TOPICAL ROUTE EVERY 3 HOURS 6 TIMES PER DAY 05/25 completed Not Available Not Available Not Available neomycin-po lymyxin-dex ameth 3.5 mg/mL-10,00 0 unit/mL-0.1 % eye drops 12/09 completed Not Available Not Available Not Available triamcinolo ne acetonide 0.1 % topical ointment APPLY OINTMENT TOPICALLY TO AFFECTED AREA TWICE DAILY 12/09 completed Not Available Not Available Not Available dexamethaso ne 4 mg tablet TAKE 1 TABLET BY MOUTH TWICE DAILY FOR 5 DAYS 12/09 completed Not Available Not Available Not Available losartan 25 mg tablet TAKE 1 TABLET BY MOUTH ONCE DAILY active Not Available Not Available No t Available oxybutynin chloride ER 5 mg tablet,exte nded release 24 hr 02/05 completed Not Available Not Available Not Available gabapentin 300 mg capsule Q 07/11 completed Not Available Not Available Not Available leucovorin calcium 5 mg tablet TAKE 1 TABLET BY MOUTH ONCE A WEEK 12 HOURS AFTER METHOTREX ATE 2024 active Not Available Not Available Not Avai lable folic acid 1 mg tablet Take 2 tablets by mouth once daily 2024 active Not Available Not Available Not Avai lable hydroxyzine HCl 25 mg tablet 1/2 to 1 pill every 8 hours active Not Available Not Available No t Available furosemide 20 mg tablet Take 1 tablet 3 times a week by oral route for 30 days. 2024 active Not Available Not Available Not Avai lable bethanechol chloride 50 mg tablet Take 1 tablet 3 times a day by oral route. 08/21 completed Not Available Not Available Not Available hydroxychlo roquine 200 mg tablet TAKE 1 TABLET BY MOUTH TWICE DAILY 12/27 completed Not Available Not Available Not Available cefuroxime axetil 500 mg tablet TAKE 1 TABLET BY MOUTH EVERY 12 HOURS FOR 7 DAYS 02/01 completed Not Available Not Available Not Available levofloxaci n 500 mg tablet Take 1 tablet every 24 hours by oral route for 10 days. 05/30 completed Not Available Not Available Not Available scopolamine 1 mg over 3 days transdermal patch APPLY 1 PATCH TOPICALLY EVERY 72 HOURS 10/29 completed Not Available Not Available Not Available methylpredn isolone 4 mg tablets in a dose pack Take 1 dose pk by oral route. 09/16 completed Not Available Not Available Not Available albuterol sulfate HFA 90 mcg/actuati on aerosol inhaler INHALE 1 PUFF BY MOUTH EVERY 4 HOURS NEEDED 12/09 completed Not Available Not Available Not Available hydrocortis one 2.5 % topical ointment APPLY OINTMENT TOPICALLY TWICE DAILY TO FACE 12/09 completed Not Available Not Available Not Available clobetasol 0.05 % scalp solution APPLY TO THE AFFECTED SCALP AREA BY TOPICAL ROUTE TWICE PER DAY IN THE MORNING AND EVENING 05/25 completed Not Available Not Available Not Available cefdinir 300 mg capsule 03/06 completed Not Available Not Available Not Available sertraline 50 mg tablet Take 1 tablet every day by oral route. 03/06 completed Not Available Not Available Not Available Bactrim DS 800 mg-160 mg tablet Take 1 tablet every day by oral route at bedtime for 90 days. 2023 active Not Available Not Available Not Avai lable potassium chloride ER 10 mEq tablet,exte nded release(par t/cryst) 07/09 completed Not Available Not Available Not Available clobetasol 0.05 % shampoo Apply by topical route for 30 days. 05/25 completed Not Available Not Available Not Available duloxetine 60 mg capsule,del ayed release TAKE 1 CAPSULE BY MOUTH ONCE DAILY FOR 90 DAYS active Not Available Not Available No t Available darifenacin ER 15 mg tablet,exte nded release 24 hr TAKE 1 TABLET BY MOUTH ONCE DAILY 10/20 completed Not Available Not Available Not Available pregabalin 75 mg capsule 1 bid 10/29 completed Not Available Not Available Not Available pregabalin 150 mg capsule TAKE 1 CAPSULE BY MOUTH TWICE DAILY active Not Available Not Available No t Available Co Q-10 09/16 completed Not Available Not Available Not Available cranberry 08/21 completed Not Available Not Available Not Available Fish Oil 12/09 completed Not Available Not Available Not Available biotin 08/21 completed Not Available Not Available Not Available docusate calcium 07/09 completed Not Available Not Available Not Available Vitamin D3 12/09 completed Not Available Not Available Not Available Cymbalta 09/16 completed Not Available Not Available Not Available hydrochloro thiazide 12.5 mg tablet TAKE 1 TABLET BY MOUTH EVERY DAY 07/09 completed Not Available Not Available Not Available trospium ER 60 mg capsule,ext ended release 24 hr Take 1 capsule every day by oral route. 07/09 completed Not Available Not Available Not Available diclofenac 1.5 % topical drops APPLY TO AFFECTED NAILS BEFORE USING SOLUTION/ OINTMENT TREATMENT (30 DAY SUPPLY) active Not Available Not Available No t Available Prolia 60 mg/mL subcutaneou s syringe one injection every six months active Not Available Not Available No t Available Myrbetriq 50 mg tablet,exte nded release Take 1 tablet every day by oral route for 90 days. 07/09 completed Not Available Not Available Not Available Eliquis 2.5 mg tablet Take 1 tablet twice a day by oral route. active Not Available Not Available No t Available Fluad 65yr up(PF)45 mcg(15 mcgx3)/0.5 mL intramuscul ar syringe inject 0.5 millilite rs intramusc ularly 07/09 completed Not Available Not Available Not Available Vitals Date Recorded Body height Respiratory rate Body mass index (BMI) Body weight Oxygen saturation Oxygen saturation in Arterial blood by Pulse oximetry Heart rate Systolic And Diastolic Provider Name and Address Organization Details Last Updated DateTime 5 165.1 cm 16 /min 33.3 kg/m2 80480.4 7 g 95 % 95 % 82 /min 128/78 mm[Hg] Scott Amaral [facility] 5 10:53:27 Date Recorded Body height Body mass index (BMI) Body weight Oxygen saturation Oxygen saturation in Arterial blood by Pulse oximetry Heart rate Systolic And Diastolic Provider Name and Address Organization Details Last Updated DateTime 5 165.1 cm 33.3 kg/m2 71861.4 7 g 94 % 94 % 99 /min 136/88 mm[Hg] Tegan Field [facility] 10:20:13 Date Recorded Body height Body mass index (BMI) Body weight Provider Name and Address Organization Details Last Updated DateTime 02/02/2024 165.1 cm 33.3 kg/m2 31660.47 g Lilian Crowder [facility] 02/02/2024 11:42:59 Date Recorded Body height Body mass index (BMI) Body weight Provider Name and Address Organization Details Last Updated DateTime 02/21/2024 165.1 cm 33.3 kg/m2 73089.47 g Lilian Crowder [facility] 02/21/2024 11:39:08 Date Recorded Body height Body mass index (BMI) Body weight Provider Name and Address Organization Details Last Updated DateTime 03/08/2024 165.1 cm 33.3 kg/m2 15536.47 g Marilee Green [facility] 03/08/2024 09:27:27 Social History Question Answer Notes LastModified by Organizat ion Details LastModified Time Tobacco Smoking Status [facility] 08:24:36 How Much Tobacco Do You Chew? None [email or web address] Information not available 05/21/2019 Live Alone Or With Others? With Others Information not available 02/05/2019 Marital Status Informat ion not available 02/05/2019 What Was The Date Of Your Most Recent Tobacco Screening? 05/30/2024 [email or web address] Information not available 05/30/2024 What Is Your Relationship Status? [email or web address] Information not available 07/09/2021 How Much Tobacco Do You Smoke? No [email or web address] Information not available 05/21/2019 Has Tobacco Cessation Counseling Been Provided? No Information not available 07/09/2021 Sex: Female Functional Status Question Answer Note LastModified by Organizat ion Details LastModified Time Do you use any illicit or recreational drugs? No [email or web address] Information not available 07/09/2021 Do you or have you ever used any other forms of tobacco or nicotine? No [email or web address] Information not available 07/09/2021 What is your level of alcohol consumption? Occasional [email or web address] Information not available 08/21/2021 Are you currently employed? No [email or web address] Information not available 06/30/2023 What is your occupation? Retired Information not available 02/05/2019 Mental Status None recorded. Family History Relationship Description Onset Age of this Age Resolved Age Notes LastModified by Organization Details LastModified Time Father [email or web address] Not available 08:23:42 Mother [facility] 08:23:47 Mother Cerebrovascu lar accident [facility] Not available 02/05/2019 08:23:52 Medical History Condition Response Anxiety Disorder Y Arthritis Y Hypertension Y High Cholesterol Y Neurological Problems Y Gynecological HistoryNo gynecological history recorded. Obstetrics History GPAL:G 0 P 0 0 0 0 Immunizations Vaccine Type Date Status Note Provider Nam e and Address Organization Details Recorded Time Influenza, split virus, quadrivalent, preservative 1 [facility] 11:27:58 COVID-19, mRNA, LNP-S, PF, 30 mcg/0.3 mL dose 1 completed Frida [facility] 07/09/2021 11:28:39 COVID-19, mRNA, LNP-S, PF, 30 mcg/0.3 mL dose 1 [facility]21 11:29:03 COVID-19, mRNA, LNP-S, PF, 30 mcg/0.3 mL dose [facility] 07/09/2021 11:29:09 Past Encounters Encounter ID Performer Location Encounter Start Date Encounter Closed Date Diagnosis/Indication Diagnosis SNOMED-CT Code Diagnosis ICD10 Code Diagnosis Note [id number] [facility] [address] [place] [address] 02/05/2019 07:54:19 02/05/2019 10:03:46 Cervical myelopathy 716028404 G95.9 [id number] BRISEIDA ADAM MD [facility]UROLOGY [facility] CL[facility] [address] [place] [address] 03/06/2019 15:27:54 03/06/2019 16:49:16 Cervical myelopathy 074159947 G95.9 [id number] BRISEIDA ADAM MD NEUROLOGY [facility] CLOSED [address] [place] [address] 03/22/2019 14:16:03 03/22/2019 15:29:20 Cervical myelopathy 916104318 G95.9 Urinary incontinence 165 833202 R32 [id number] BRISEIDA ADAM MD [facility]UROLOGY [facility] CLOS[facility] [address] [place] [address] 05/02/2019 13:48:41 05/02/2019 14:46:26 Spinal cord disease [id number] G95.9 [id number] CANDY CHAVIRA MD [facility] [address],[place] [address] 0 05/21/2019 13:55:21 05/21/2019 15:14:21 Urinary tract infectious disease 97988780 N39.0 Neurogenic dysfunction of urinary bladder 454874123 N31.9 we discussed potential further evaluation . Katt tang her complex recent history suggest we start with urodynamic s. We will also await urine culture prior to starting any antibiotic therapy. Her residual today was significan t but asymptomat ic and we will postpone starting intermitte nt catheteriz ation for now. [id number] CANDY CHAVIRA MD [facility] [address],[place] [address] 0 06/01/2019 08:52:28 06/01/2019 09:15:42 Retention of urine 983730020 R33.9 Mixed urin micaela incontinence 945913729 N39.46 [id number] CANDY CHAVIRA MD [facility] [address],[place] [address] 0 06/01/2019 10:05:07 06/01/2019 10:35:13 Mixed urinary incontinence 778746023 N39.46 Retention of urine 63345 4002 R33.9 follow-up 2 weeks [id number] BRISEIDA ADAM MD NEUROLOGY [facility] CLOSED [address],[place] [address] 1 07/12/2019 09:55:18 07/12/2019 10:38:01 Cervical myelopathy 680195127 G95.9 [id number] CANDY CHAVIRA MD [facility] [address] [place] [address] 0 07/16/2019 13:43:53 07/16/2019 14:40:05 Urinary tract infectious disease 70566777 N39.0 as above follow-up 3 weeks Chronic re tention of urine 903062870 R33.8 she will discontinu e the bethanecho l and start intermitte nt self-mirna terization 3 times per day Urge incon tinence of urine 70959874 N39.41 observe [id number] BRISEIDA ADAM MD NEUROLOGY [facility] CLOSED [address] [place] [address] 1 08/06/2019 13:42:51 08/06/2019 14:52:32 Neuropathic pain 297080188 M79.2 Spinal cord disease 4852002 G95.9 [id number] CANDY CHAVIRA MD [facility] [address] [place] [address] 0 08/06/2019 14:58:58 08/06/2019 15:38:19 Neurogenic dysfunction of urinary bladder 115846220 N31.9 [id number] BRISEIDA ADAM MD NEUROLOGY [facility] CLOSED [address] [place] [address] 1 09/10/2019 12:52:19 09/10/2019 14:04:37 Spinal cord disease 23140126 G95.9 [id number] CANDY CHAVIRA MD [facility] [address] [place] [address] 0 11/07/2019 13:32:51 11/07/2019 14:37:14 Urge incontinence of urine 74484995 N39.41 observe [id number] CANDY CHAVIRA MD [facility] [address] [place] [address] 0 11/14/2019 14:40:33 11/14/2019 16:50:17 Urge incontinence of urine 01250243 N39.41 observe [id number] CANDY CHAVIRA MD [facility] [address],[place] [address] 0 11/21/2019 13:42:17 11/21/2019 14:24:44 Urge incontinence of urine 33708053 N39.41 observe [id number] JAVON CONNOLLY MD [facility] [address],[place] [address] 0 11/28/2019 15:11:02 11/28/2019 15:30:21 Urge incontinence of urine 47173536 N39.41 [id number] CANDY CHAVIRA MD [facility] [address],[place] [address] 0 12/05/2019 13:14:40 12/05/2019 14:39:23 Urge incontinence of urine 82637365 N39.41 observe Urinary tr act infectious disease 49363070 N39.0 as above follow-up 3 weeks [id number] YUKI LOCKWOOD MD [facility] [address],[place] [address] 0 12/13/2019 13:30:42 12/13/2019 13:59:58 Urge incontinence of urine 37407185 N39.41 [id number] CANDY CHAVIRA MD [facility] [address],[place] [address] 0 12/19/2019 13:03:23 12/19/2019 13:41:46 Urge incontinence of urine 26935715 N39.41 observe [id number] YUKI LOCKWOOD MD [facility] [address],[place] [address] 0 12/26/2019 13:03:48 12/26/2019 14:07:08 Urge incontinence of urine 55245122 N39.41 [id number] JAVON CONNOLLY MD [facility] [address] [place] [address] 01/02/2020 14:06:01 01/04/2020 16:36:14 Urinary tract infectious disease 75084547 N39.0 Urge incon tinence of urine 03769783 N39.41 [id number] RIP ANNE JR, MD [facility] [address] [place] [address] 01/10/2020 13:05:44 01/10/2020 15:06:59 Urge incontinence of urine 64094742 N39.41 [id number] YUKI LOCKWOOD MD [facility] [address] [address] 01/17/2020 13:28:48 01/17/2020 16:01:44 Urge incontinence of urine 08595476 N39.41 [id number] YUKI LOCKWOOD MD [facility] [address] [place] [address] 01/23/2020 10:26:54 01/23/2020 11:42:15 Urge incontinence of urine 02681265 N39.41 [id number] CANDY CHAVIRA MD [facility] [address] [place] [address] 01/30/2020 13:46:03 01/30/2020 14:33:04 Neurogenic dysfunction of urinary bladder 931406255 N31.9 plan as above follow-up 3 months if lucreciain kitty mojica. We have seen a new prescripti on for 4 times a day catheteriz ation supplies [id number] BRISEIDA ADAM [facility] [address] [place] [address] 03/04/2020 13:06:11 03/04/2020 13:40:51 Spinal cord disease 25058968 G95.9 [id number] BRISEIDA ADAM MD NEUROLOGY [address] [place] [address] 06/05/2020 14:05:57 06/05/2020 16:57:53 Spinal cord disease 97052731 G95.9 [id number] MD [facility] [address],[place] [address] 0 06/11/2020 13:56:01 06/11/2020 14:50:14 Chronic infective cystitis 016975251 N30.20 Continue Bactrim daily at bedtime Urge incon tinence of urine 21527685 N39.41 observe [id number] BRISEIDA ADAM MD [place]UROLOGY [place] [address] 1 06/30/2020 10:34:18 06/30/2020 12:32:06 Skin sensation disturbance 08717328 R20.9 Pain in bi lateral lower legs [id number] 9599341 M79.661 M79.844 [id number] BRISEIDA ADAM MD NEUROLOGY [place] [address] 1 09/02/2020 13:32:13 09/02/2020 14:20:44 Muscle pain 72086311 M79.10 Spinal cord disease 4852002 G95.9 [id number] MD [facility] [address],[place] [address] 0 12/12/2020 10:13:18 12/12/2020 11:23:17 Neurogenic dysfunction of urinary bladder 669619354 N31.9 she is a less incontinen ce after starting to catheteriz e 5 times per day. She will continue with oxybutynin chloride extended release 10 mg per day Chronic in fective cystitis 978546588 N30.20 she has had recent breakthrou gh infections on Bactrim suppressio n and we will try doxycyclin e daily at bedtime [id number] BRISEIDA ADAM MD NEUROLOGY [place] [address] 1 03/03/2021 14:11:05 03/03/2021 15:09:26 Spinal cord disease 41468967 G95.9 [id number] MD [facility] [address],[place] [address] 0 06/12/2021 10:59:34 06/12/2021 11:59:42 Neurogenic dysfunction of urinary bladder 639136306 N31.9 she is a less incontinen ce after starting to catheteriz e 5 times per day. She will continue with oxybutynin chloride extended release 10 mg per day Chronic in fective cystitis 973434004 N30.20 Continue doxycyclin e Daily at bedtime [id number] BRISEIDA ADAM MD NEUROLOGY [place] [address] 1 07/09/2021 11:15:13 07/09/2021 13:02:59 Spinal cord disease 67323650 G95.9 [id number] BRISEIDA ADAM MD NEUROLOGY [place] [address] 1 08/21/2021 10:54:34 08/24/2021 16:33:15 Spinal cord disease 48545881 G95.9 Pain of mu ltiple joints 39301780 M25.50 [id number] IMAN DANIELS MD [facility] [place] [address] 09/16/2021 09:20:33 09/16/2021 10:08:55 Pain of multiple joints 04367147 M25.50 [id number] IMAN DANIELS MD [facility] [place] [address] 1 10/29/2021 13:20:49 10/29/2021 16:32:11 Generalized osteoarthritis 301376214 M15.9 Anti-nucle ar factor detected 973137287 R76.8 Chronic ki dney disease stage 3 122240632 N18.30 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 on of intervertebral disc 80423409 M51.9 [id number] CANDY CHAVIRA MD [facility] [address] [place] [address] 12/14/2021 11:00:55 12/14/2021 11:55:32 Neurogenic dysfunction of urinary bladder 369378541 N31.9 follow-up: 1 month Chronic in fective cystitis 854280104 N30.20 Continue doxycyclin e Daily at bedtime Urinary tr act infectious disease 91248771 N39.0 as above follow-up 3 weeks [id number] CANDY CHAVIRA MD [facility] [address] [address] 01/11/2022 11:01:02 01/11/2022 12:15:30 Neurogenic dysfunction of urinary bladder 329699983 N31.9 follow-up: 1 month Urge incon tinence of urine 27707586 N39.41 as above Urinary tr act infectious disease 10447508 N39.0 . Resolved. [id number] CANDY CHAVIRA MD [facility] [address] [address] 02/15/2022 11:10:41 02/15/2022 12:13:24 Urge incontinence of urine 39834654 N39.41 as above Neurogenic dysfunction of urinary bladder 746991269 N31.9 follow-up: 4 month [id number] CANDY CHAVIRA MD [facility] [address] [address] 06/21/2022 10:39:55 06/21/2022 11:15:28 Urge incontinence of urine 61218761 N39.41 as above Chronic re tention of urine 259963271 R33.8 Continue intermitte nt self-mirna terization 3 times per day [id number] CANDY CHAVIRA MD [facility] [address] [place], [place] [address] [place] [address] 08/09/2022 13:52:31 08/09/2022 14:26:28 Urge incontinence of urine 76831777 N39.41 as above [id number] YUKI LOCKWOOD MD [facility] [address] [place] [address] 08/12/2022 15:13:08 08/12/2022 17:00:46 Urge incontinence of urine 68821624 N39.41 Retention of urine 30661 4002 R33.9 [id number] YUKI LOCKWOOD MD [facility] [address],[place] [address] 0 09/09/2022 16:33:36 09/10/2022 14:27:28 Urge incontinence of urine 00047849 N39.41 [id number] YUKI LOCKWOOD MD [facility] [address],[place] [address] 0 09/14/2022 12:47:57 09/14/2022 13:33:19 Urge incontinence of urine 93807672 N39.41 [id number] YUKI LOCKWOOD MD SURGERY SCHEDULE [address] [place] [address] 1 09/20/2022 06:32:41 09/20/2022 06:33:30 Urge incontinence of urine 16347293 N39.41 [id number] BRISEIDA ADAM MD NEUROLOGY [place] [address] 10/20/2022 14:31:04 10/20/2022 15:38:41 Spinal cord disease 18950875 G95.9 [id number] YUKI LOCKWOOD MD [facility] [address] [place] [address] RD,[place] [place] [address] 0 10/26/2022 10:06:45 10/26/2022 11:08:35 Urge incontinence of urine 29152540 N39.41 Retention of urine 48760 4002 R33.9 [id number] ADAM EMANUEL MITCHELL MD [facility] [address] [place] [address] 1 12/09/2022 12:40:21 12/10/2022 04:28:02 Dermatomyositis 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 Gottron's papule. Periungual erythema. Cuticular hypertroph y. Proximal muscle weakness at 4 out of 5 both upper and lower extremitie s. Diminished breath sounds, worrisome for any underlying chronic interstiti al lung disease or antisynthe tase syndrome. High risk for malignancy . Discussed my concerns with the patient and her in detail. Dermatomyo sitis in associatio n with malignancy also reviewed. 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 She does have strongly positive SUHAS screen at 1: 640. As mentioned in the HPI skin biopsy 11/09/2022 confirmed interface dermatitis from left forehead. Failed topical as well as oral steroids. Suggested to reduce the dose of prednisone to 40 mg once a day and add methotrexa te as a steroid sparing medication at 10 mg once a week for the first 2 weeks and then increase to 15 mg once a week for another 2 weeks and then maintain at 20 mg once a week in combinatio n with folic acid 1 mg once a day. If symptoms do not improve, I will have addition of rituximab. Overall very complex disease with shelter prognosis remains guarded. High risk for malignancy . Needs to be up-to-date with health maintenanc e. Follow up with me in 3 weeks. Labs obtained. Side effect profile of methotrexa te and steroids reviewed in detail. Long-term current use of immunosuppressive drug 374443119 Z79.60 Chest xr and labs obtained today. Itching of skin 07447538 0 L29.9 Secondary to dermatomyo sitis rash. Symptomati c management with hydroxyzin e. [id number] VENKATESH CORTES APRN [facility]OL [facility] [address] [place] [address] 12/27/2022 12:51:36 12/28/2022 04:49:18 Itching of skin 165564172 L29.9 Secondary to dermatomyo sitis rash. Symptomati c management with hydroxyzin e. 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 Failed topical as well as oral steroids. Rash is improving, with dry erythemato us skin noted to bilateral upper and lower extremitie s, as well as anterior chest area. Muscle weakness improved since previous visit. CXR viewed and discussed with patient. Tif1 gamma Ab level 12-High risk for malignancy discussed with patient. Educated to remain up to date on preventati ve screenings . She does have an upcoming colonoscop y. She does have strongly positive SUHAS screen at 1: 640. skin biopsy 11/09/2022 confirmed interface dermatitis from left forehead. CXR discussed, as well as labs. Encouraged oral hydration- Creatinine 1.09 mg/dL. GFR 53. Blood glucose 192-likely due to high doses of corticoste roids. Hydroxyzin e has helped with pruritis. Will need refill today. She will continue to taper with Prednisone . She will decrease to Prednisone 30 mg for 2 weeks.She will increase Methotrexa te 2.5 mg 8 tablets weekly.Con tinue with Folic Acid 1 mg daily. Follow up in office in 2 weeks or eariler if needed. Long-term current use of immunosuppressive drug 733320791 Z79.60 12/27/22-CX R and labs discussed with patient.Diomedes vivas started on Methotrexa te last visit.We will obtain labwork today- CBC, CMP Herpes labialis 6192055 B00.1 [id number] YUKI LOCKWOOD MD [facility] [address] [facility] [address] [place] [address] 01/04/2023 11:11:30 01/04/2023 12:16:42 Urge incontinence of urine 16494967 N39.41 [id number] VENKATESH CORTES APRN [facility] [address] [place] [address] 01/10/2023 12:47:45 01/11/2023 04:28:53 Dermatomyositis 104423646 M33.90 Patient is a 77 year old female following up with dermatomyo sitis.Pres entation is very much improved from previous visit. Failed topical as well as oral steroids. Rash is improving, with dry skin noted to bilateral upper and lower extremitie s, as well as anterior chest area. Muscle weakness improved since previous visit. CXR viewed and discussed with patient. Tif1 gamma Ab level 12-High risk for malignancy discussed with patient. Educated to remain up to date on preventati ve screenings . She does have an upcoming colonoscop y. She does have strongly positive SUHAS screen at 1: 640. skin biopsy 11/09/2022 confirmed interface dermatitis from left forehead. CXR discussed, as well as labs. Encouraged oral hydration- Creatinine 1.09 mg/dL. GFR 53. Blood glucose 192-likely due to high doses of corticoste roids. Hydroxyzin e has helped with pruritis. Will need refill today.Wayne forrester to continue to taper with Prednisone . She will decrease to Prednisone 20 mg daily for 7 days, then decrease to 10 mg daily for 7 days. Suggested she continue Methotrexa te 2.5 mg 8 tablets weekly.Con tinue with Folic Acid 1 mg daily. Follow up in office in 2 weeks Itching of skin 74496827 0 L29.9 Secondary to dermatomyo sitis rash. Symptomati c management with hydroxyzin e. Long-term current use of immunosuppressive drug 120123486 Z79.60 12/27/22-CX R and labs discussed with patient.Diomedes vivas started on Methotrexa te last visit.We will obtain labwork today- CBC, CMP Herpes labialis 2115802 B00.1 [id number] ADAM MITCHELL MD [facility] [address] [place] [address] 01/25/2023 14:22:51 01/26/2023 04:48:35 Dermatomyositis 069824453 M33.90 Patient is a 78 year old female following up with dermatomyo sitis. She is doing much better. Currently on the combinatio n of prednisone and methotrexa te. Significan t improvemen t in the skin. Further improvemen t in the muscle strength. She does have some shortness of breath but without any rales, wheezing or crackles. Chest x-ray 12/09/2022 is normal. Does not have any chest pain. She has positive Tif1 gamma Ab level,-Hig h risk for malignancy discussed with patient. Educated to remain up to date on preventati ve screenings . She does have an upcoming colonoscop y. She does have strongly positive SUHAS screen at 1: 640. skin biopsy 11/09/2022 confirmed interface dermatitis from left forehead. Suggested to maintain the prednisone at 10 mg once a day for 2 weeks followed by 7.5 mg once a day for 2 weeks and then reduce it to 5 mg once a day.Mainta in methotrexa te 20 mg once a week along with folic acid 2 mg once a day. Hydroxyzin e has helped with pruritis. Maintain as a as needed every 8 hours Follow-up in 4 weeks Itching of skin 23119301 0 L29.9 Secondary to dermatomyo sitis rash. Much better continue with as needed hydroxyzin e. Long-term current use of immunosuppressive drug 434960631 Z79.60 12/27/22-CX R and labs discussed with patient.Re peat liver function CBC and ESR Dyspnea at rest 34576976 7 R06.00 She has dyspnea on exertion. No chest pain. No fevers or chills. Lungs are fairly clear on auscultati on. She has normal chest x-ray dated November 2022. On account of chronic kidney disease not a candidate for IV contrast. Suggest high-resol ution CT chest. Further obtain cardiology consultati on. We obtain CBC to look for any anemia. I will follow the consultati on from cardiology as well as the results of the CT chest. In the meantime suggested to keep us posted on her progress. In case of any worsening breathing during the of office hours, she is told to go to the local ER at [facility]. Her and the patient voiced understand ing. [id number] YUKI LOCKWOOD MD [facility] [address] [facility] [place] [address] 02/23/2023 09:00:18 02/23/2023 09:48:35 Urge incontinence of urine 52594174 N39.41 [id number] ADAM MITCHELL MD [facility]OL [facility] [address] [place] [address] 03/01/2023 11:03:47 03/03/2023 04:58:23 Dermatomyositis 192587000 M33.90 Patient is a 78 year old female following up with dermatomyo sitis. She is doing much better. Significan t improvemen t in the skin breakouts. Significan t movement and muscle strength. Currently on the combinatio n of prednisone and methotrexa te. She does have some shortness of breath but without any rales, wheezing or crackles. Chest x-ray 12/09/2022 is normal. Does not have any chest pain. She has positive Tif1 gamma Ab level,-Hig h risk for malignancy discussed with patient. Educated to remain up to date on preventati ve screenings . Up-to-date with colonoscop y. She does have strongly positive SUHAS screen at 1: 640. skin biopsy 11/09/2022 confirmed interface dermatitis from left forehead. Suggested to maintain the prednisone at 5 mg once a dayMaintai n methotrexa te 20 mg once a week along with folic acid 2 mg once a day. Hydroxyzin e has helped with pruritis. Maintain as a as needed every 8 hours Refills given. Follow-up in May 2022 Itching of skin 77779231 0 L29.9 Secondary to dermatomyo sitis rash. Improvemen t overall except for the scalp.cont inue with as needed hydroxyzin e. Long-term current use of immunosuppressive drug 703836925 Z79.60 Labs from January 2023 reviewed, stable. Repeat in April 2023. She will be in [place] in April and we will repeat the labs there. Psoriasis of scalp 52041 8008 L40.9 Clobetasol scalp solution and shampoo prescripti ons sent today. Chronic in terstitial lung disease 7051268583 47740 J84.9 She has evidence of mild chronic interstiti al lung disease likely associated with the dermatomyo sitis. Will continue to watch. Repeat the chest CT in a year. Obtain PFTs every [address] chest 01/27/2023: 1. Changes of mild chronic interstiti al lung disease. Changes are nottypical for UIP.2. A patch of coarse fibrotic changes are seen in the left inferiorli ngular segment. [id number] NATHAN AMATO MD CARDIOLOG Y [facility] [address] [place] [address] ,[address] [place] [address] 05/26/2023 13:28:18 05/26/2023 15:01:31 Dyspnea on exertion 81635152 R06.09 Based on history and physical exam, the patient's dyspnea is of unknown etiology.R honchi noted at right base. Patient reports chronic cough and dysphagia. Per chart review, she also has chronic interstiti al lung disease.EK G (05/26/23) - normal sinus rhythm, rate=74, normal axis, QTc= 410 ms, no significan t ST abnormalit ies. Recommenda tions:Echo cardiogram is recommende d in the near future to evaluate this issue.-If this test is normal/liam r normal, then I would not recommend any other CV tests in the near future. Chronic cough 81760427 R 05.3 F/u with PCP for this issue. [id number] ADAM MITCHELL MD RHEUMATOL O[facility] [address] [place] [address] 05/31/2023 10:44:32 06/02/2023 10:14:47 Psoriasis of scalp 408323969 L40.9 Clobetasol scalp solution and shampoo prescripti ons sent today. Dermatomyositis 58644627 8 M33.90 Patient is a 78 year old female following up with dermatomyo sitis. Lately, some increased activity skin breakouts. Currently on the combinatio n of prednisone and methotrexa te. Clinical examinatio n shows some activity of the skin with heliotrope lesion as well as erythemato us lesion involving her extremitie s. Positive proximal muscle weakness at 4 out of 5. Stable interstiti al lung disease. She has positive Tif1 gamma Ab level,-Hig h risk for malignancy discussed with patient. Educated to remain up to date on preventati ve screenings . Up-to-date with colonoscop y. She does have strongly positive SUHAS screen at 1: 640. skin biopsy 11/09/2022 confirmed interface dermatitis from left forehead. At this time I would like her to maintain the methotrexa te at the current dose 20 mg weekly, increase folic acid 2 mg a day and add leucovorin 5 mg 12 hours after methotrexa te dose. Add CellCept at 1 g a day in combinatio n with the methotrexa te. Needs to be watched closely for any cytopenias or liver function normalitie s. The high risk medication side effect reviewed with the patient and her . Today, on account of disease activity, patient was given depomedrol injection 120 mg right hip. If the disease does not get better on the combinatio n of convention al immunosupp ressive therapy and neck step would be rituximab and or IVIG infusion therapy Follow-up in q. monthly for the next few months Itching of skin 49616719 0 L29.9 Secondary to dermatomyo sitis rash. Improvemen t overall except for the scalp.cont inue with as needed hydroxyzin e. Long-term current use of immunosuppressive drug [id number] Z79.60 Labs from January 2023 reviewed, stable. Repeat labs today Chronic in terstitial lung disease [id number] 75033 J84.9 She has evidence of mild chronic interstiti al lung disease likely associated with the dermatomyo sitis. Will continue to watch. Repeat the chest CT in a year. Obtain PFTs every [address] chest 01/27/2023: 1. Changes of mild chronic interstiti al lung disease.Ch anges are nottypical for UIP.2. A patch of coarse fibrotic changes are seen in the left inferiorli ngular segment. Repeat high-resol ution CT fall 2023. Malaise and fatigue 2717 66751 R53.83 R53.81 Chronic multifacto rial obtain vitamin B12 levels as well as vitamin D levels. Further obtain TSH [id number] YUKI LOCKWOOD MD [facility] [address] [place] [address] 06/02/2023 09:12:17 06/02/2023 09:35:30 Urge incontinence of urine [id number] N39.41 [id number] NATHAN AMATO MD CARDIOLOG Y [address] [place] [address] 06/30/2023 11:33:49 06/30/2023 12:44:59 Essential hypertension [id number] I10 BP today was = 120/82 mmHg; continue with current meds. - Losartan 25 mg po qd. Patient is recommende d to check BPs at home periodical ly & bring BP log to next visit. A low sodium (< 2000 mg/day) diet is also recommende d. Obesity [id number] E66.9 patient's BMI today was = 34.5; recommend weight loss for beneficial effects on health. Dyspnea on exertion 6084 5006 R06.09 Based on history and physical exam, the patient's dyspnea is of unknown etiology. EKG (05/26/23) - normal sinus rhythm, rate=74, normal axis, QTc= 410 ms, no significan t ST abnormalit ies. Echocardio gram (06/13/23): LVEF=65-70 %, Mild AI, normal aortic and IVC measuremen ts, PASP is normal at 34 mmHg. Aortic karthik ve regurgitation [id number] I35.1 Echocardio gram (06/13/23): LVEF=65-70 %, Mild AI, normal aortic and IVC measuremen ts, PASP is normal at 34 mmHg. Recommenda tions:1)RT C in 2 years with EKG2)Echoc ardiogram in 2 years (just prior to next office visit) [id number] BRISEIDA ADAM MD NEUROLOGY [address] [place] [address] 07/04/2023 10:52:08 07/05/2023 04:43:29 Cervical myelopathy [id number] G95.9 [id number] ADAM MITCHELL MD RHEUMATOL OGY [address] [place] [address] 07/05/2023 10:51:26 07/06/2023 04:48:03 Psoriasis of scalp 292983619 L40.9 Improved, maintain use of clobetasol shampoo/ scalp solution. Dermatomyositis [id number] 8 M33.90 Patient is a 78 year old female following up with dermatomyo sitis. Lately, has been quite reasonable . Skin lesions are well-contr olled except for the heliotrope rash. No other active skin breakouts. Strength is fairly stable in both proximal and distal upper and lower extremitie s. Pulmonary examinatio n demonstrat e mild crackles at the lung bases otherwise fairly stable exam no wheezing appreciate d. Cardiovasc ular exam is physiologi c. She has positive Tif1 gamma Ab level,-Hig h risk for malignancy discussed with patient. Educated to remain up to date on preventati ve screenings . Up-to-date with colonoscop y. She does have strongly positive SUHAS screen at 1: 640. skin biopsy 11/09/2022 confirmed interface dermatitis from left forehead. At this time I would like her to maintain the methotrexa te at the current dose 20 mg weekly, folic acid 2 mg a day and leucovorin 5 mg 12 hours after methotrexa te dose.CellC ept at 1 g a day in combinatio n with the methotrexa te. Needs to be watched closely for any cytopenias or liver function normalitie s.Predniso ne 5 mg once a dayThe high risk medication side effect reviewed with the patient and her . Creatine Kinase 05/31/2023 reviewed, normal at 78 If the disease does not get better on the combinatio n of convention al immunosupp ressive therapy and neck step would be rituximab and or IVIG infusion therapy Follow-up in 3 months ECHO 06/13/2023 reviewedL heart normal function EF 65-70%Norm al aorta and IVC measuremen tsEstimate d PA systolic pressure is normal at 34 mmHg Itching of skin [id number] 0 L29.9 Secondary to dermatomyo sitis rash. Improvemen t overall except for the scalp.cont inue with as needed hydroxyzin e. Long-term current use of immunosuppressive drug [id number] Z79.60 Labs from May 2023 reviewed, stable. Repeat labs mid August 2023 Chronic in terstitial lung disease [id number] 61872 J84.9 She has evidence of mild chronic interstiti al lung disease likely associated with the dermatomyo sitis. Will continue to watch. Repeat the chest CT in a year. Obtain PFTs every [address] chest 01/27/2023: 1. Changes of mild chronic interstiti al lung disease.Ch anges are not typical for UIP.2. A patch of coarse fibrotic changes are seen in the left inferiorli ngular segment. Repeat high-resol ution CT fall 2023. Malaise and fatigue 2717 55028 R53.83 R53.81 Chronic, seems to be better. Her labs are fairly stable with normal ESR, normal B12 levels, normal folate levels, normal TSH. Blood sugar within the normal limits. [id number] ADAM MITCHELL MD [facility] [address] [place] [address] 10/04/2023 14:39:10 10/05/2023 04:25:09 Psoriasis of scalp 750112929 L40.9 Improved, maintain use of clobetasol shampoo/ scalp solution. Dermatomyositis 59752948 8 M33.90 Patient is a 78 year old female following up with dermatomyo sitis. She is here for follow-up. Combinatio n of skin, muscle and lung involvemen t. On triple therapy. Tolerating it well. Skin lesions are well-contr olled except for the heliotrope rash. No other active skin breakouts. Strength is fairly stable in both proximal and distal upper and lower extremitie s. Pulmonary examinatio n demonstrat e mild crackles at the lung bases otherwise fairly stable exam no wheezing appreciate d. Cardiovasc ular exam is physiologi c. She has positive Tif1 gamma Ab level,-Hig h risk for malignancy discussed with patient. Educated to remain up to date on preventati ve screenings . Up-to-date with colonoscop y. She does have strongly positive SUHAS screen at 1: 640. skin biopsy 11/09/2022 confirmed interface dermatitis from left forehead. At this time I would like her to maintain the methotrexa te but reduce the dose to 17.5 mg for 2 weeks and then settled down at 15 mg once a week. Continue with folic acid 2 mg a day and leucovorin 5 mg 12 hours after methotrexa te dose. Continue with CellCept at 1 g a day in combinatio n with the methotrexa te. Needs to be watched closely for any cytopenias or liver function normalitie s. Maintain prednisone 5 mg once a day Will watch her closely and plan to see her back in 3 months I would maintain a slow methotrexa te taper Most recent creatine Kinase September 2023 is normal Follow-up in 3 months ECHO 06/13/2023 reviewedL heart normal function EF 65-70%Norm al aorta and IVC measuremen tsEstimate d PA systolic pressure is normal at 34 mmHg Refills were given. Repeat labs in 3 months. Itching of skin 11724539 0 L29.9 Secondary to dermatomyo sitis rash. Improved since the last visit. Skin lesions are also better. She can continue with as needed hydroxyzin e. Long-term current use of immunosuppressive drug [id number] Z79.60 09/28/23 CMPGFR 54CBC hemoglobin 12.1ESR 14 labs ordered. Chronic in terstitial lung disease [id number] 48863 J84.9 She has evidence of mild chronic interstiti al lung disease likely associated with the dermatomyo sitis. Will continue to watch. Repeat the chest CT in a year. Obtain PFTs every [address] chest 01/27/2023: 1. Changes of mild chronic interstiti al lung disease.Ch anges are not typical for UIP.2. A patch of coarse fibrotic changes are seen in the left inferiorli ngular segment.Ov erall clinically stable.Rep eat high-resol ution CT fall 2023. Malaise and fatigue 2717 96801 R53.83 R53.81 Chronic, seems to be better. Her labs from 09/28/2023 are looking very good. Both cell count and ESR are normal. Anemia remains borderline . Liver panel is normal. Overall pleased with the progress. [id number] ADAM MITCHELL MD RHEUMATOL O[facility] [address] [place] [address] 01/05/2024 10:45:48 01/06/2024 14:57:16 Psoriasis of scalp 097095556 L40.9 Improved, maintain use of clobetasol shampoo/ scalp solution. Dermatomyositis 19516010 8 M33.90 Patient is a 78 year old female following up with dermatomyo sitis. Multisyste m involvemen t including skin, muscle and lungs. On triple therapy. Skin lesions are well-contr olled except for the heliotrope rash. No other active skin breakouts. Strength is fairly stable in both proximal and distal upper and lower extremitie s. Pulmonary examinatio n demonstrat e mild crackles at the lung bases, chronic but otherwise stable. Strength is fairly well-maint ained in both proximal and distal extremitie s. She has positive Tif1 gamma Ab level,-Hig h risk for malignancy discussed with patient. Educated to remain up to date on preventati ve screenings . Up-to-date with colonoscop y. She does have strongly positive SUHAS screen at 1: 640. skin biopsy 11/09/2022 confirmed interface dermatitis from left forehead. She is suggested to continue with the triple therapy including: Maintain 15mg methotrexa te weekly. Continue with folic acid 2 mg a day and leucovorin 5 mg 12 hours after methotrexa te dose. Continue with CellCept at 1 g a day Can reduce prednisone to 5 mg every other day. Maintain lab studies anywhere between 3 to 4 months Follow-up in 3 months ECHO 06/13/2023 reviewedL heart normal function EF 65-70%Norm al aorta and IVC measuremen tsEstimate d PA systolic pressure is normal at 34 mmHg They will be traveling to [place] for the winter, they will do the labs there with results faxed to my office. Refills were given. Repeat labs in 3 months. Itching of skin 35398308 0 L29.9 Secondary to dermatomyo sitis rash. Improved since the last visit. Skin lesions are also better. She can continue with as needed hydroxyzin e. Long-term current use of immunosuppressive drug [id number] Z79.60 12/29/23 labsCBC normalCrea tinine 1.10, GFR 48. Chronic in terstitial lung disease [id number] 25098 J84.9 She has evidence of mild chronic interstiti al lung disease likely associated with the dermatomyo sitis. Will continue to watch. Repeat the chest CT in a year. Obtain PFTs every [address] chest 01/27/2023: 1. Changes of mild chronic interstiti al lung disease.Ch anges are not typical for UIP.2. A patch of coarse fibrotic changes are seen in the left inferiorli ngular segment.Ov erall clinically stable.Rep eat high-resol ution CT chest on her return from [place]. Pain of le ft knee joint [id number] 04426 M25.562 symptomati c left knee.Can Stephen to osteoarthr itis.She is taking Advil in combinatio n with the Tylenol which she is advised to stop using any NSAID specially on account of chronic kidney disease. She was given an intra-claudy cular steroid injection to reduce the inflammati on. No complicati ons noted. She can maintain Tylenol Extra Strength. [id number] MD [facility] [address] [address] 02/02/2024 11:29:47 02/02/2024 11:51:11 Acute urinary tract infection 091976724 N39.0 Retention of urine 08635 4002 R33.9 [id number] MD [facility] [address] [address] 02/21/2024 11:22:45 02/21/2024 11:56:19 Acute urinary tract infection 251239985 N39.0 [id number] YUKI LOCKWOOD MD [facility] [address] [place] [address] 03/08/2024 09:18:43 03/09/2024 04:24:47 Acute urinary tract infection 177204932 N39.0 Retention of urine 83647 4002 R33.9 [id number] ADAM MITCHELL MD RHEUMATOL OGY [address] [place] [address] 05/30/2024 10:31:29 06/04/2024 10:20:34 Psoriasis of scalp 616446123 L40.9 Chronic and improved, maintain use of clobetasol shampoo/ scalp solution. Dermatomyositis 19093423 8 M33.90 Patient is a 79 year old female following up with dermatomyo sitis. Multisyste m involvemen t including skin, muscle and lungs. On triple therapy. Skin lesions are well-contr olled She does have some seasonal allergies and fullness involving the eyelids. Positive itching. No active dermatomyo sitis lesion Strength is fairly stable in both proximal and distal upper and lower extremitie s. Significan t venous stasis changes lower extremitie s pulmonary examinatio n demonstrat e mild crackles at the lung bases, chronic but otherwise stable. She has positive Tif1 gamma Ab level,-Hig h risk for malignancy discussed with patient. To date with [facility]. Up-to-date with colonoscop y. She does have strongly positive SUHAS screen at 1: 640. skin biopsy 11/09/2022 confirmed interface dermatitis from left forehead. She is suggested to continue with the triple therapy including: Maintain 15mg methotrexa te weekly. Continue with folic acid 2 mg a day and leucovorin 5 mg 12 hours after methotrexa te dose. Continue with CellCept at 1 g a day in divided doses Can reduce prednisone to 5 mg every other day. Maintain lab studies anywhere between 3 to 4 months Follow-up in 3 months ECHO 06/13/2023 reviewedL heart normal function EF 65-70%Norm al aorta and IVC measuremen tsEstimate d PA systolic pressure is normal at 34 mmHg f/u in August. Itching of skin 00968167 0 L29.9 Secondary to seasonal allergies and dermatomyo sitis rash. Improved since the last visit. Skin lesions are also better. She can continue with as needed hydroxyzin e. Long-term current use of immunosuppressive drug 888224343 Z79.60 12/29/23 labsCBC normalCrea tinine 1.10, GFR 48. She'll do the labs every 3 months. Chronic in terstitial lung disease 6998746266 31834 J84.9 She has evidence of mild chronic interstiti al lung disease likely associated with the dermatomyo sitis. Will continue to watch. Repeat the chest CT in a year. Obtain PFTs every [address] chest 01/27/2023: 1. Changes of mild chronic interstiti al lung disease.Ch anges are not typical for UIP.2. A patch of coarse fibrotic changes are seen in the left inferiorli ngular segment.Ov erall clinically stable. Echocardio gram May 2023 with normal EF range 60 to 65%. No evidence of pulmonary arterial hypertensi on. Bilateral lower leg edema 510871625 R60.0 Secondary to venous insufficie ncy along with dependent edema Adjusted compressio n stockings during the day. Brief trial of furosemide 20 mg 3 times a week along with potassium 10 mEq. This is followed by on as needed basis Labs electrolyt es while taking the diuretic [id number] BRISEIDA ADAM MD NEUROLOGY [address] [place] [address] 06/04/2024 09:35:23 06/05/2024 04:28:01 Cervical myelopathy 997261322 G95.9 Health Concerns Section Related Observation LastModified by Organization Detai ls LastModified Time None Recorded Concern Status LastModified by Organization Details LastModified Time None Recorded Advance Directives Directive None Recorded Payers Insurance Date Sequence Insurance Name Policy Number Policy Kurtz Covered Member ID Kurtz Member ID Guarantor Name 06/02/2024 2 [employer] (MEDICARE SUPPLEMENT) Kelli Scott [id number] Kelli Scott 05/27/2024 1 [place] Kelli Scott [id number] Kelli Scott Notes Date Note Type Note Provider Name and Address Organization Details Recorded Time 02/02/2024 text/html She has been hav ing problems for the last month with urinary tract infection. She has been on cefuroxime and Levaquin without resolution. She is having a lot of suprapubic pain. InterStim controls her incontinence. She does intermittent catheterization 6 times per day. Urine shows pyuria and culture is started. We will treat with Macrobid. We may need to keep her on a suppressive antibiotic after this is resolved YUKI LOCKWOOD [facility] [place], [address], [facility] 02/02/2024 12:05:24 02/21/2024 text/html Her culture was positive for E. coli and sensitive to Macrobid. She is not feeling much better. She still have a lot of crampy suprapubic pain. She is having incontinence. She catheterizes herself 6 times per day. InterStim did not significantly help. Her urine continues to show pyuria and repeat culture was started. We will switch to Bactrim. She will stop her oxybutynin and we will try 75 mg Gemtesa daily YUKI LOCKWOOD [place] [facility] [place], [address], [facility] 02/21/2024 11:54:24 03/08/2024 text/html She continues to have severe problems with bladder spasms. Her repeat culture showed no growth. Urine continues to show pyuria and another culture is started. She is on Gemtesa. We will have her meet with the [employer] rep to see if they can make adjustments to the InterStim. The meantime we will switch to Macrobid. She continues to do the self catheterizations 3 times a day YUKI LOCKWOOD MD [address] [place] [address] [place], [address], [facility] 03/08/2024 10:01:13 05/30/2024 text/html 79 year old gonzalez le seen today in our rheumatology department for a follow up on dermatomyositis. 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 While she was in [place], she developed a blood clot in her left leg. Currently on Eliquis. Tolerating it well. This is followed by PCP. She does have some venous insufficiency in both legs. She is not able to use the compression stockings She was taken off her diuretic due to kidney functions. She does have some fullness in her eye lids that has been going on for the past 2 days. Seems to be more related to allergies. She is on high risk medications including methotrexate, CellCept and prednisone. Awaiting eval. Past medical history significant for: hypertension, chronic kidney disease stage III, acid reflux, neurogenic dysfunction of urinary bladder, history of transverse myelitis. She does not have any history of malignancy. ADAM MITCHELL MD [address] [place] [address], [phone], [facility] 05/31/2024 08:03:27 06/04/2024 text/html She was seen a y ear ago. Neurologically she has been stable. Bothered by recurrent UTIs.She self-caths.Has Interstim but this has not been helpful. She had DVT in the recent past in the left leg and is on Eliquis now. Follows with Dr. Mitchell for dermatomyositis.She is taking methotrexate, Cellcept, and low dose prednisone. Pain - thighs. Remains on pregabalin and duloxetine There was one fall.Uses cane at times. BRISEIDA ADAM MD [facility] [place], [address], [facility] 06/04/2024 17:25:52 OBGyn Episode No OBEpisode recorded.
--- OUTSIDE RECORDS SUMMARY | 2024-08-14 10:32 | XMS_ITS ---
Author Organization Unknown TREATMENT PLAN [facility] Start Date Provider Encounter for Check-up [id number] [facility]
[2024-08-14 11:00] LABS: Basophils % 0.4 % (0.1-2.0); Eosinophils # 0.1 Kmm3 (0.0-0.4); Eosinophils % 2.4 % (0.1-12.0); Hemoglobin 11.6 g/dL (12.2-16.2); Immature Granulocytes # 0.02 10^3uL; Immature Granulocytes % 0.4 %; Lymphocytes # 1.4 K/mm3 (0.7-4.5); Lymphocytes % 31.6 % (10-50); Mean Corpuscular HGB Conc 31.4 g/dL (31.8-35.4); Mean Corpuscular Volume 92.5 fl (81-99); Monocytes # 0.5 K/mm3 (0.1-1.0); Monocytes % 9.9 % (1.7-9.3); Neutrophils # 2.5 K/mm3 (1.8-7.8); Neutrophils % 55.3 % (37.0-80.0); Nucleated Red Blood Cells # 0 10^3/uL; Nucleated Red Blood Cells % 0 %; Platelet Count 225 K/mm3 (142-424); Red Cell Distribution Width 14.6 % (11.5-17.5); Red Cell Distribution Width-SD 49.4 fL; White Blood Count 4.6 K/mm3 (4.8-10.8)
[2024-08-14 11:14] LABS: Alanine Aminotransferase 19 U/L (12-78); Aspartate Amino Transferase 25 U/L (14-36); Estimated Glomerular Filt Rate 70 ml/min (>60); GFR (African American) 84 ML/MIN (>60)
[2024-08-14 11:28] LABS: Erythrocyte Sedimentation Rate 19 mm/hr (0-30)
== END 2024-08-14 23:59 | disposition home or self-care (01) ==
LOC: LAB 10:30
PROVIDERS: PCP Family Medicine; Visit Provider Internal Medicine Rheumatology
DX: Z79.899 Other long term (current) drug therapy (principal)
CPT/HCPCS: 36415; 82565; 84450; 84460; 85025; 85651

== ENCOUNTER 2024-09-11 10:42 | Outpatient (CLI) | payer MEDICARE, OTHER, SELFPAY ==
--- OUTSIDE RECORDS SUMMARY | 2024-08-24 10:30 | XMS_ITS ---
[facility] Organization [facility] Address [address] [place] [id number] Care Team Providers Care Mental Health Aide Name Role Phone Reece Santiagoian Primary Care Provider Allergies Allergen (clinical drug ingredient) Drug/Non Drug Allergy documented on EMR Reaction Allergy Type Onset Date Status lisinopril Lisinopril hives Drug Allergy Activ e Penicillin rash Drug Allergy Active Results Component Value Reference Range Notes Urinalysis - Inhouse Reviewed date:08/24/2024 05:00:18 PM Interpretation: Performing Lab: Notes/Report: Color/Clarity yellow Leuk 1+ Nitrite pos Urobili 3.2 Protein trace pH 5.5 Blood 3+ Sp. Gr. 1.015 Ketone neg Bili neg Gluc neg P-Culture, Urine Reviewed date:08/28/2024 09:10:04 AM Interpretation:E. Coli Performing Lab: Notes/Report: Test performed by [facility] [address] [place] [address] , [address], [place] [address] Danilo Duran MD, Manager Security CLIA: [id number] Specimen Source Urine - Void Culture, Urine See Below See Microbiol ogy Report Escherichia coli ESBL 50,000-100,000 CFU /ml Escherichia coli ESBL This isolate is a confirmed ESBL (Extended Spectrum Beta-Lactamase) producer arborist manager and should be considered clinically resistant to all penicillins, cephalosporins and aztreonam. Sensitivity Panel See Below ____ Organism E.coli ESBL Antibiotic INTERP ____ Amikacin S Ampicillin R Aztreonam R Cefepime R Cefoxitin S Ceftazidime R Ceftriaxone R Cefuroxime R Ciprofloxacin R Ertapenem S Gentamicin S Imipenem S Levofloxacin R Meropenem S Nitrofurantoin R Piperacillin/Tazo S Tetracycline R Tobramycin S Trimeth/Sulfa S ___ S=SUSCEPTIBLE I=INTERMEDIATE R=RESISTANT REASON FOR VISIT pain with urinary catheter Medications Medication SIG (Take, Route, Frequency, Duration) Notes Start Date End Date Status predniSONE 5 MG 1 tablet Orally Once a day for 30 day(s) Active Methotrexate Sodium 2.5 MG as directed Orally Active Mycophenolate Mofetil 250 MG 1 capsule Orally Twice a day for 30 day(s) Active Methenamine Hippurate 1 GM 1 tablet Oral ly once daily Active Macrobid 100 MG 1 capsule with food Orally every 12 hrs for 7 days 08/24/2024 Active DULoxetine HCl 60 MG Take 1 capsule by m out once daily for 90 Active Eliquis 5 MG Take 1 tablet by jessica th twice daily for 30 Active Hyoscyamine Sulfate 0.125 MG 1 tablet as needed Orally every 4 hrs 07/18/2024 Active Pantoprazole Sodium 40 MG 1 tablet 1/2 t o 1 hour before morning meal Orally Once a day for 30 day(s) 07/10/2024 Active Mupirocin 2 % 1 application Interactive Developer ally Twice a day 05/28/2024 Active Pregabalin 150 MG 1 cap(s) orally 2 ti mes a day for 90 days 02/24/2024 Active Vitamin D3 25 MCG (1000 UT) 1 cap(s) ora lly once a day for 30 day(s) Active Claritin 10 MG 1 tab(s) orally once a day Active Fish Oil 100MG Activ e Folic Acid 1 MG 1 tablet Orally Once a day for 30 day(s) Active Vital Signs Weight 208.2 lbs 08/24/2024 Blood pressure systolic 130 mm Hg 08/25/19 25 Blood pressure diastolic 70 mm Hg 025 Heart Rate 93 /min 08/24/2024 Height 65 in 08/24/2024 BMI 34.64 kg/m2 08/24/2024 Encounters Encounter Location Date Provider Diagnosis [facility] [address] [place], [place] [id number] 08/24/2024 Jensen Santiago Pelvic pain R10.2 ; Chronic UTI N39.0 and Brown catheter in place Z92.89 Assessments Encounter Date Diagnosis (ICD Code) Assessment Notes Treatment Notes Treatment Clinical Notes Section Notes 08/24/2024 Pelvic pain (ICD-10 - R10.2) 08/24/2024 Chronic UTI (ICD-10 - N39.0) Patient to follow up with [facility] urology next week 08/24/[address] (ICD-10 - Z92.89) Brown catheter removed in office today. Patient had immediate pain relief. She will use catheters she has at home for intermittent bladder drainage Plan Of Treatment Medication Medication Name Sig Start Date Stop Date Notes Macrobid 100 MG 1 capsule with food Orally every 12 hrs for 7 days 08/24/2024 Treatment Notes Assessment Notes Chronic UTI Patient to follow up with [facility] urology next week Brown catheter in place Brown catheter r emoved in office today. Patient had immediate pain relief. She will use catheters she has at home for intermittent bladder drainage Next Appt Details Follow Up: via phone to cl gibbons progress, Reason: Progress Notes * Trish SCOTTKillianOB: 7 (79 yo F)Acc No.[id number]:08/24/2024 Progress Notes Patient: Kelli THOMAS Provider: Kacie Santiago M.D. :1945 A ge:79 Y S ex:Female Date:08/24/2024 Address:[address], [id number] Subjective: * Chief Complaints: * 1 . Pain with urinary catheter. * HPI: U rology: 79 year old female presents with c/o suprapubic pain P atient had urinary catheter placed by [facility] in July, she is to follow up there this coming . For the past 2-3 days, she has been in pain feeling as though the catheter may be partially falling out. Pt sts she feels as if she is sitting on it and it is very painful. Pt sts she is suppose to go back next week for a check up. * ROS: D ERMATOLOGY: no R carlita. n o H mary. G ASTROENTEROLOGY: no N ausea. n o V omiting. U ROLOGY: no D ifficulty urinating. n o B lood in urine. 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 * Surgical History: B ladder Tuck 2008, Bladder Tuck 04/2012, Left Knee 12/08/18. * Hospitalization/Major Diagno stic Procedure: S t E[facility] - Transverse Myelitis (11 days) 01/2019, [facility] - Cervical myelopathy 02/15-02/24/2009. * Family History: F ather: 75 yrs, CHF, diagnosed with Heart Disease. M other: alive 89 yrs, Kidney problems, COPD, CHF, diagnosed with Heart Disease. 1 sister(s) . 1 son(s) , 2 daughter(s) . .? * Social History: C URRENT TOBACCO USE S moking Status: Patient does NOT smoke. C affeine: yes, frequency: coffee 4 cups a day. Home smoke detector use: yes. Past smoking status: no. Alcohol: Yes, Type: beer , Frequency: one or two a week ,Years: , Determination:. * Medications: T aking Methenamine Hippurate 1 GM Tablet 1 tablet Orally once daily , Taking Mycophenolate Mofetil 250 MG Capsule 1 capsule Orally Twice a day , Taking Methotrexate Sodium 2.5 MG Tablet as directed Orally , Taking predniSONE 5 MG Tablet 1 tablet Orally Once a day , Taking Folic Acid 1 MG Tablet 1 tablet Orally Once a day , Taking Fish Oil 100MG , Taking Claritin 10 MG Tablet 1 tab(s) orally once a day , Taking Vitamin D3 25 MCG (1000 UT) Capsule 1 cap(s) orally once a day , Taking Pregabalin 150 MG Capsule 1 cap(s) orally 2 times a day , Taking Mupirocin 2 % Ointment 1 application Externally Twice a day , Taking Pantoprazole Sodium 40 MG Tablet Delayed Release 1 tablet 1/2 to 1 hour before morning meal Orally Once a day , Taking Hyoscyamine Sulfate 0.125 MG Tablet 1 tablet as needed Orally every 4 hrs , Taking Eliquis 5 MG Tablet Take 1 tablet by mouth twice daily , Taking DULoxetine HCl 60 MG Capsule Delayed Release Particles Take 1 capsule by mouth once daily , Discontinued levoFLOXacin 250 MG Tablet 1 tablet Orally Once a day , Medication List reviewed and reconciled with the patient * Allergies: P enicillin: rash, Lisinopril: hives. Objective: * Vitals: W t: 208.2, Temp: 97.7, BP: 130/70, HR: 93, Nurse: [facility], Ht: 65, BMI:34.64. * Examination: G eneral Examination: General Appearance: N AD. Heart: R SR. Lungs: c lear to auscultation. Genitalia: f oley catheter in place. Assessment: * Assessment: 1. P elvic pain - R10.2 (Primary) 2 . C hronic UTI - N39.0 3 . F oley catheter in place - Z92.89 Plan: * Treatment: Value Reference Range C ulture, Urine See Below - * S pecimen Source Urine - Void - * S ensitivity Panel See Below - * E scherichia coli ESBL 50,000-100,000 CFU/ml Escherichia coli ESBL - * Henrietta Horan 08/28/2024 09: 09:57 AM EDT > See phone encounter ?LAB: Urinalysis - Inhouse (Collection Date & Time - 08/24/2024)* Value Reference Range C olor/Clarity yellow * L euk 1+ * N itrite pos * U robili 3.2 * P rotein trace * p H 5.5 * B lood 3+ * S p. Gr. 1.015 * K etone neg * B antolin neg * G jl neg * Gunjan Acevedo 08/24/2024 03:30 :32 PM EDT > Provider reviewed results while patient in office. Notes: Patient to follow up with [facility] urology next week??2.?Brown catheter in place? Notes: Brown catheter removed in office today. Patient had immediate pain relief. She will use catheters she has at home for intermittent bladder drainage?? * Procedure Codes: G 2211 Complex e/[place], [address] Urinalysis, no micro, 1036F TOBACCO NON- USER, G8783 BP SCR PRFRM RCMDD DEFIND SCR INTVL, G8752 MOST RECENT SYSTOLIC BP < 140MM HG, G8754 MOST RECENT DIASTOLIC BP < 90MM HG * Follow Up: v ia phone to report progress * Billing Information: * Visit Code: 38549 Office Visit, Est Pt., Level 4. * Procedure Codes: G2211 Complex e/[place]. [address] Urinalysis, no micro. 1036F TOBACCO NON-USER. G8783 BP SCR PRFRM RCMDD DEFIND SCR INTVL. G8752 MOST RECENT SYSTOLIC BP < 140MM HG. G8754 MOST RECENT DIASTOLIC BP < 90MM HG. * Electronic signature of Valencia Santiago MD on 09/11/2024 at 10:48 AM EDT Sign off status: Pending * Provider: Kacie Santiago M.D. Date: 0 08/24/2024 Generated for Drew reza/Shanelle/Chetitting on: 0 09/11/2024 10:48 AM EDT History and Physical Notes * HPI (History of Present Illness) Category Sub-Category Detail Notes Category Not es Urology suprapubic pain Patient had urin micaela catheter placed by [facility] in July, she is to follow up there this coming . For the past 2-3 days, she has been in pain feeling as though the catheter may be partially falling out. Pt sts she feels as if she is sitting on it and it is very painful. Pt sts she is suppose to go back next week for a check up Examination Category Sub-Category Detail Notes Category Not es General Examination Heart: RSR Lungs: clear to auscultatio n General Appearance: NAD Genitalia: brown catheter in pl [place]
--- OUTSIDE RECORDS SUMMARY | 2024-09-03 12:12 | XMS_ITS ---
Author Organization [facility] Address [address] [place] [id number] Care Team Providers Care Diversional Therapist'S Assistant Name Role Phone Jensen Santiago Primary Care Provider [phone] REASON FOR VISIT due mamm, colonoscopy, bone density Encounters Encounter Location Date Provider Diagnosis [facility] [address] [place] [id number] 09/03/2024 Jensen Santiago Screening for breast cancer Z12.39 and Screening for osteoporosis Z13.820 Assessments Encounter Date Diagnosis (ICD Code) Assessment Notes Treatment Notes Treatment Clinical Notes Section Notes 09/03/2024 Screening for breast cancer (ICD-10 - Z12.39) 09/03/2024 Screening for osteoporosis (ICD-10 - Z13.820) Plan Of Treatment Pending Test Test Name Order Date Bone density 09/03/2024 Mammogram 09/03/2024 Progress Notes * Jaci DEWITTenDOB: 7 (79 yo F)Acc No.[id number]:09/03/2024 Patient: Kelli THOMAS :1945 A ge:79 Y S ex:Female Address:[address] [place], [address] Subjective: * Chief Complaints: * D ue mamm, colonoscopy, bone density * Medical History: * Surgical History: * Hospitalization/Major Diagno stic Procedure: * Medications: Objective: * Vitals: * Physical Examination: Assessment: * Assessment: 1. S creening for breast cancer - Z12.39 2 . S creening for osteoporosis - Z13.820 Plan: * Treatment: 2.?Screening for osteoporosis?Imaging: Bone density * Procedure Codes: * true * Date: Generated for Drew reza/Shanelle/Chetitting on: 0 09/11/2024 10:46 AM EDT
--- OUTSIDE RECORDS SUMMARY | 2024-09-07 05:33 | XMS_ITS ---
Author Organization [facility] Address [address] [facility] [address] [place] [id number] Care Team Providers Care Monogram And Letter Paster Name Role Phone Jensen Santiago Primary Care Provider Reason For Referral Diagnosis 1 Urinary retention (R 33.9) Diagnosis 2 Chronic UTI (N39.0) Diagnosis 3 Other urinary incont inence (N39.498) Diagnosis 4 Neurogenic bladder ( N31.9) [facility]erral Organization [facility] Referring Provider First Name Jensen Referring Provider Last Name Pamela Referring Provider Speciality Family Pra ctice Referred Provider Fifi Cartagena Notes Ninfa Correa 2024 08:45:29 AM > faxed referral to [facility] Urogynecology Referral Priority Routine REASON FOR VISIT Referral Encounters Encounter Location Date Provider Diagnosis [place] [address] [facility] [address] [place] [id number] 09/07/2024 Jensen Santiago Urinary retention R3 3.9 ; Other urinary incontinence N39.498 and Chronic UTI N39.0 Assessments Encounter Date Diagnosis (ICD Code) Assessment Notes Treatment Notes Treatment Clinical Notes Section Notes 09/07/2024 Urinary retention (ICD-10 - R33.9) 09/07/2024 Other urinary incontinence (ICD-10 - N39.498) 09/07/2024 Chronic UTI (ICD-10 - N39.0) Plan Of Treatment Referrals Referral Date Details 09/07/2024 09/07/2024 Progress Notes * Lan DEWITTOB: 7 (79 yo F)Acc No.[id number]:09/07/2024 Patient: Kelli THOMAS :1945 A ge:79 Y S ex:Female Address:[facility] [place], [address] Subjective: * Chief Complaints: * R eferral * Medical History: * Surgical History: * Hospitalization/Major Diagno stic Procedure: * Medications: Objective: * Vitals: * Physical Examination: Assessment: * Assessment: 1. U rinary retention - R33.9 (Primary) 2 . O ther urinary incontinence - N39.498 3 . C hronic UTI - N39.0 Plan: * Treatment: 2. O ther urinary incontinence Referral To: Fifi Cartagena Reason: 3. C hronic UTI Referral To: Fifi Cratagena Reason: 4. O thers Referral To: Fifi Cartagena Reason: * Procedure Codes: * true * Date: Generated for Drew reza/Shanelle/eTransmitting on: 0 09/11/2024 10:49 AM EDT Consultation Request Notes Referral Date Referring Provider Referred Provider Not es 09/07/2024 Jensen Santiago Clarissa
--- OUTSIDE RECORDS SUMMARY | 2024-09-11 10:46 | XMS_ITS | Encounter Summary ---
Author Organization [facility] Address [address] [place] [address] Care Team Providers Care Hydrogenation Operator Name Role Phone Unavailable Primary Care Provider Unavailabl e Encounter Details Date Type Department Care Team (Late st Contact Info) Description 02/07/2019 Transcribed Document [facility] [place] [facility] [address] [place] [address] ProviderYusuf MD [address] [place] [address] Social History Tobacco Use Types Packs/Day Years Used Date Smoking Tobacco: Never Assessed Comments Unknown Sex and Gender Information Value Date Recorded Sex Assigned at Female 09/17/2021 5:37 PM CDT Legal Sex Female 5:37 PM CDT Gender Identity Female 09/17/2021 5:37 PM CDT Sexual Orientation Not on file documented as of this encounter Miscellaneous Notes * Cerner Conversion Note - Historical ProviderMD - 02/07/2019 7:58 AM PROGRAM SPECIALIST Spiritual Care Short Form Entered On: 02/07/2019 8:22 EST Performed On: 02/07/2019 7:58 EST by JULIO TOBIAS General Information, Spiritual Care Spiritual Care Referred by : Family Reason for Visit : Referral/Consult Ministry Provided to : Patient, Family/Significant other Intervention/Comment/Summary Points : Provided guest tray voucher and spiritual support to patient and . JULIO TOBIAS - 02/07/2019 8:21 EST documented in this encounter Plan of Treatment Not on file documented as of this encounter Visit Diagnoses Not on filedocumented in this encounter
--- OUTSIDE RECORDS SUMMARY | 2024-09-11 10:46 | XMS_ITS | Encounter Summary ---
Author Organization [employer] iatives Address [address] [place] [address] Care Team Providers Care Special Events Director Name Role Phone Unavailable Primary Care Provider Unavailabl e Encounter Details Date Type Department Care Team (Late st Contact Info) Description 02/08/2019 Transcribed Document [facility] Radiology [address] [place] [address] Anne Peters MD [address] [place] [address] [address] [place] [address] Social History Tobacco Use Types Packs/Day Years Used Date Smoking Tobacco: Never Assessed Comments Unknown Sex and Gender Information Value Date Recorded Sex Assigned at Female 09/17/2021 5:37 PM CDT Legal Sex Female 5:37 PM CDT Gender Identity Female 09/17/2021 5:37 PM CDT Sexual Orientation Not on file documented as of this encounter Miscellaneous Notes * Cerner Conversion Note - Anne Peters MD - 02/08/2019 9:00 AM EST Patient: FRANKY DEWITT Age: 74 years Sex: Female : 1945 Associated Diagnoses: None Author: ANNE PETERS MD-INT Subjective Primary care physician Dr Bradley CRUZ Date of admission 02/05/2019 Date of discharge Referring physician Dr. Johan Sue neurology [facility] Chief complaint bilateral upper and lower extremity weakness with loss of bladder and bowel function History of present illness 74-year-old female sent to the hospital as a direct admit per Dr. Johan Sue's request. Patient reports bilateral upper and lower extremity weakness, tingling and numbness That started approximately 3 weeks ago. She tells me she had corticosteroid injection left knee on January 15. After that she started experiencing weakness tingling and numbness off all 4 extremities along with bladder and bowel Control loss. Denies any injury or trauma. Denies dysphagia or dyspnea.the lesion headache fever or chills Patient had MRI of the brain per PCP on Tuesday which identified abnormal signal involving upper cervical cord along with thoracic cord Suspicious for mild opacity including possible transverse myelitis versus other pathology. Patient was referred To neurologist Dr. Johan Conway. She was seen in the office by him and subsequently admission was recommended She just arrived here in room 317. Her is present with her. Consultations obtained -Neurology-Dr Weiss -Physical occupational and speech therapy consultation Procedures and workup -LP on 02/06-Status post fluoroscopic guided lumbar puncture. Access was obtained to the thecal sac at the L3-4 vertebral level. 13 mls of clear CSF were removed. Opening pressure = 8. 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 There is mild enhancement. There is no hemorrhage. Differential diagnosis includes transverse myelitis, neuromyelitis optica and less likely multiple sclerosis or neoplasm. . Accentuated kyphosis with mild leftward curvature of the thoracic spine. 2. No abnormal vertebral body signal is identified with no fracture. 3. Diffuse degenerative changes of the thoracic discs with narrowing. There is no disc protrusion or extrusion. 4. The thoracic cord has normal signal and contour with no abnormal enhancement. Hospital course 02/05 patient seen and examined history and physical done 02/06 patient awake, no new c/o, extensive neuro w/u underway per Dr weiss, no fam around 02/07-pt awake, weakness same , s/p LP now, CXR pending, neuro on board here. 02/08-pt seen, present, unable to tolerate steroids, reports leg weakness worse today, LP noted, pt is slightly hypertensive 02/09-pt 02/10-pt 02/11-pt Past medical history is significant for prior knee surgery on the left side, hypertension, dyslipidemia, and anxiety and depression Family history positive for heart disease Social history lives with her no alcohol no tobacco no drug abuse Usual home medications reviewed please see the list Health Status Allergies: Allergic Reactions (Selected) Severity Not Documented Lisinopril- Hives. Penicillin- Rash., Allergies (2) Active Reaction lisinopril hives penicillin rash Current medications: (Selected) Inpatient Medications Ordered Biotin 1000mcg tablet: 1 Tab, Oral, Daily Coenzyme Q10: 100 mg, Oral, Daily Colace: 100 mg, Oral, BID, PRN: Constipation Cozaar: 25 mg, Oral, Daily Fish Oil: 1,000 mg, Oral, Daily LORazepam: 1 mg, IV Push, Q4H, PRN: Anxiety Lipitor: 10 mg, Oral, Daily Lovenox: 40 mg, SubCutaneous, Daily MiraLax: 17 Gram, Oral, Daily, PRN: Constipation Pepcid: 20 mg, Oral, Daily Tylenol: 650 mg, Oral, Q4H, PRN: Pain (Mild 1-3) Zofran: 4 mg, IV Push, Q4H, PRN: Nausea Zoloft: 100 mg, Oral, Daily hydrALAZINE: 5 mg, IV Push, Q4H, PRN: Hypertension hydroCHLOROthiazide: 12.5 mg, Oral, Daily insulin lispro sliding scale: Scale A:, SubCutaneous, AC and at Bedtime morphine: 2 mg, IV Push, Q2H, PRN: Pain (Severe 7-10) potassium chloride 10 mEq oral tablet, extended release: 1 Tab, Oral, Daily Documented Medications Documented AZO Cranberry Gummies oral tablet, chewable: 1 Tab, Oral, Daily, 0 Refill(s) Claritin 10 mg oral tablet: 1 Tab, Oral, Daily, 0 Refill(s) CoQ10: 100 mg, Oral, Daily, 0 Refill(s) Fish Oil 500 mg oral capsule: 2 Cap, Oral, Daily, 0 Refill(s) Vitamin D3: 2,000 Units, Daily, 0 Refill(s) Zoloft 100 mg oral tablet: 1 Tab, Oral, Daily, 0 Refill(s) atorvastatin 10 mg oral tablet: 1 Tab, Oral, At Bedtime, 0 Refill(s) biotin 1000 mcg oral tablet: 1 Tab, Oral, Daily, 30 Tab, 0 Refill(s) hydroCHLOROthiazide 12.5 mg oral tablet: 1 Tab, Oral, Daily, 30 Tab, 0 Refill(s) losartan 25 mg oral tablet: 1 Tab, Oral, Daily, 0 Refill(s), Home Medications (10) Active atorvastatin 10 mg oral tablet 10 mg = 1 Tab, Oral, At Bedtime AZO Cranberry Gummies oral tablet, chewable 1 Tab, Oral, Daily biotin 1000 mcg oral tablet 1,000 mcg = 1 Tab, Oral, Daily Claritin 10 mg oral tablet 10 mg = 1 Tab, Oral, Daily CoQ10 100 mg, Oral, Daily Fish Oil 500 mg oral capsule 1,000 mg = 2 Cap, Oral, Daily hydroCHLOROthiazide 12.5 mg oral tablet 12.5 mg = 1 Tab, Oral, Daily losartan 25 mg oral tablet 25 mg = 1 Tab, Oral, Daily Vitamin D3 2,000 Units, Daily Zoloft 100 mg oral tablet 100 mg = 1 Tab, Oral, Daily , Medications (18) Active Scheduled: (11) atorvastatin 10 mg tab 10 mg 1 Tab, Oral, Daily Biotin 1000mcg tablet 1 Tab, Oral, Daily enoxaparin 40 mg/0.4 mL inj 40 mg 0.4 mL, SubCutaneous, Daily famotidine 20 mg tab 20 mg 1 Tab, Oral, Daily hydrochlorothiazide 25 mg tab 12.5 mg 0.5 Tab, Oral, Daily insulin lispro 1 unit/0.01 mL inj Scale A:, SubCutaneous, AC and at Bedtime losartan 25 mg tab 25 mg 1 Tab, Oral, Daily omega-3 fish oil 1,000 mg cap 1,000 mg 1 Cap, Oral, Daily potassium chloride CR 10 mEq tab 1 Tab, Oral, Daily sertraline 100 mg tab 100 mg 1 Tab, Oral, Daily ubiquinone 50 mg Cap 100 mg 2 Cap, Oral, Daily Continuous: (0) PRN: (7) acetaminophen 325 mg tab 650 mg 2 Tab, Oral, Q4H docusate sodium 100 mg cap 100 mg 1 Cap, Oral, BID hydrALAZINE 20 mg/1 mL inj 5 mg 0.25 mL, IV Push, Q4H LORazepam 2 mg/mL inj 1 mg 0.5 mL, IV Push, Q4H morphine 2 mg/1 ml inj 2 mg 1 mL, IV Push, Q2H ondansetron 4 mg/2 mL inj 4 mg 2 mL, IV Push, Q4H polyethylene glycol 3350 pwd 17 g pkt 17 Gram 1 Packet, Oral, Daily Problem list: Medical At risk for sleep apnea / IMO [id number] / Confirmed, Active Problems (3) At risk for sleep apnea HLD (hyperlipidemia) HTN (hypertension) Objective VS/Measurements Vitals Signs (last 24 hrs) Last Charted Minimum Maximum Temp 97.5 (FEB 08:) 97.5 (FEB 08:) 98.3 (FEB 07 15:00) Mon HR 95 (FEB 08:) 80 (FEB 07 15:00) 109 (FEB 07 10:00) Resp Rate 18 (FEB 08:) 17 (FEB 07 22:45) 18 (FEB 08:) SBP H 175 (FEB 08:) 111 (FEB 07 10:00) H 175 (FEB 08:) DBP H 101 (FEB 08:) 71 (FEB 07 10:00) H 101 (FEB 08:) MAP 132 (FEB 08:) 81 (FEB 07 10:00) 132 (FEB 08:) SpO2 95 (FEB 08:) L 87 (FEB 08 00:56) 98 (FEB 07 21:) General: No acute distress. Eye: Normal conjunctiva. HENT: Normocephalic. Neck: Supple, No jugular venous distention. Respiratory: Lungs are clear to auscultation, Respirations are non-labored, Breath sounds are equal. Cardiovascular: Normal rate, Regular rhythm, No gallop, S1+ S2 No S3 or S4 [place].. Gastrointestinal: Soft, Non-tender, Non-distended, Normal bowel sounds. Genitourinary: No costovertebral angle tenderness. Lymphatics: No lymphadenopathy neck, axilla, groin. Musculoskeletal: Normal range of motion, Normal strength. Integumentary: Warm, Dry, No rash. Neurologic: Alert, Oriented, She has bilateral upper and lower extremity weakness-lower ext more so than upper. Psychiatric: Cooperative, Appropriate mood & affect. Results Review General results Interpretation: No qualifying data available Labs (Last four charted values) WBC 6.3 (FEB 06) 7.8 (FEB 05) HB 12.6 (FEB 06) 12.8 (FEB 05) HCT 39.0 (FEB 06) 38.8 (FEB 05) Plt 192 (FEB 06) 222 (FEB 05) Na 139 (FEB 06) 140 (FEB 05) K 3.7 (FEB 06) 3.6 (FEB 05) Cl 108 (FEB 06) 108 (FEB 05) CO2 29 (FEB 06) 28 (FEB 05) BUN 18 (FEB 06) H 24 (FEB 05) Cr 0.90 (FEB 06) 1.00 (FEB 05) Glu R 88 (FEB 06) 97 (FEB 05) Ca 9.1 (FEB 06) 9.1 (FEB 05) PT 11.0 (FEB 06) INR 1.0 (FEB 06) PTT 25.9 (FEB 06) AST 14 (FEB 05) ALT 26 (FEB 05) ALK P 73 (FEB 05) T Bili 0.3 (FEB 05) PTN 7.7 (FEB 05) ALB 3.8 (FEB 05) Radiology Results (Last 48 hours) [id number] -- 02/05/2019 10:21 CR Fluoro GD Lumbar Punct Dx (02/06/2019 14:40) Result: LUMBAR PUNCTURE AND FLUOROSCOPYHISTORY: Transverse myelitis.ATTENDING PHYSICIAN: Baljit Gee M.D.PHYSICIAN ATMOSPHERIC SCIENCES PROFESSOR: JIMBO Luque-CPROCEDURE: After informed consent was obtained and timeout procedureperformed, the patient was placed in the prone position in thefluoroscopic suite.The L3-L4 level of the lumbar spine was localized under fluoroscopicguidance and marked on the skin appropriately. The patient was thenprepped and draped in the usual sterile fashion and the skin wasanesthetized with 1% Lidocaine.A lumbar puncture was then performed under direct fluoroscopic guidanceat the L3-L4 level using a 20-gauge 3 1/2'' needle. The patient wassubsequently rolled into the left lateral decubitus position and openingpressure was measured at 8 cm of water. Approximately 13 ml of clearcerebrospinal fluid was removed and sent to the laboratory for studies.The patient tolerated the procedure well and there were no immediatecomplications.IMPRESSION: Technically successful lumbar puncture as above.FLUOROSCOPY TIME: 0.01 minutesFLUOROSCOPY FILMS: 1Images reviewed, interpreted, and dictated by Dr. Baljit Gee.Transcribed by KELSIE LuqueC, R.T. (N), C N M T.I have personally viewed, interpreted and dictated the examination. Ihave read and agree with the above final transcribed report. CR Chest 2 Vws (02/07/2019 08:32) Result: TWO-VIEW CHEST 02/07/2019 9:00 AMHISTORY: WeaknessCOMPARISON: NoneFINDINGS: The cardiac silhouette is proper size. The aortic contoursare normal. The mediastinal and hilar structures are unremarkable. Thereis lingular atelectasis. The lungs are otherwise clear. There isunderlying emphysema. There is no pneumothorax. IMPRESSION: No acute cardiopulmonary process. Images reviewed, interpreted, and dictated by Dr. Xi Pfeiffer.Transcribed by RAH Sanabria have personally viewed, interpreted and dictated the examination. Ihave read and agree with the above final transcribed report. Impression and Plan Diagnosis -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 etiology-s/p LP now -loos of bowel-bladder function controlled -Pyuria-but doubt UTI-NO UTI I think -Essential hypertension -Hyperlipidemia -Recent left knee surgery -Anxiety and depression Plan neuro checks, extensive neuro w/u underway, Neurology consultation appreciated steroids now being held per Dr Weiss-I d/w Dr Weiss on 02/07 follow labs prn, reviewed MRI cervical thoracic and lumbar spine Physical occupational and speech therapy consultation, Plan of care was discussed with the patient and family-difficult problem documented in this encounter Plan of Treatment Not on file documented as of this encounter Visit Diagnoses Not on filedocumented in this encounter
--- OUTSIDE RECORDS SUMMARY | 2024-09-11 10:46 | XMS_ITS | Encounter Summary ---
Author Organization [employer] Address [address] [place] [address] Care Team Providers Care Compensation Consultant Name Role Phone Unavailable Primary Care Provider Unavailabl e Encounter Details Date Type Department Care Team (Late st Contact Info) Description 02/12/2019 Transcribed Document [facility] Radiology [address] [place] [address] Anne Peters MD [address] [place] [address] [address] [place] [address] Social History Tobacco Use Types Packs/Day Years [...] Conversion Note - Anne Peters MD - 02/12/2019 9:57 AM EST Patient: FRANKY DEWITT Age: 74 years Sex: Female : 1945 Associated Diagnoses: None Author: ANNE PETERS MD-INT Subjective Primary care physician Dr Bradley CRUZ Date of admission 02/05/[address] Johan Sue neurology [facility] Chief complaint bilateral upper and [...] present with her. Consultations obtained -Neurology-Dr Weiss -NSY -Dr Arnold -Physical occupational and speech therapy consultation Procedures [...] LP noted, pt is slightly hypertensive 02/09-pt feels better this am, legs now stronger, less soa, at bedside, neuro service on board here 02/10-pt had dizziness and orthostatic hypotension, now back on low dose steroids, SUHAS + noted no cp, leg weakness is better, present, will dc HCTZ and reduce cozar as well 02/11-pt seems better, no new c/o, leg weakness better, kaitlynn steroids well 1125-pt feels well, leg weakness better, still appears anxious, present, IVIG added per neuro, I called and d/w Dr Arnold today Past medical history is significant for prior [...] 1 mg, IV Push, Q4H, PRN: Anxiety LORazepam: 1 mg, Oral, BID, PRN: Anxiety Lovenox: 40 mg, SubCutaneous, Daily MiraLax: 17 Gram, Oral, Daily, PRN: Constipation Pepcid: 20 mg, Oral, Daily SOLU-Medrol: 250 mg, IV Push, Q12H Tylenol: 650 mg, Oral, Daily Tylenol: 650 mg, Oral, Q4H, PRN: Pain (Mild 1-3) Zofran: 4 mg, IV Push, Q4H, PRN: Nausea Zoloft: 100 mg, Oral, Daily diphenhydrAMINE: 25 mg, IV Push, Daily hydrALAZINE: 5 mg, IV Push, Q4H, PRN: Hypertension immune globulin intravenous: 5 Gram, 50 mL, 40 mL/Hr, IV Piggyback, Daily immune globulin intravenous: 60 Gram, 600 mL, 40 mL/Hr, IV Piggyback, Daily insulin lispro sliding scale: Scale A:, [...] = 1 Tab, Oral, Daily , Medications (22) Active Scheduled: (14) acetaminophen 325 mg tab 650 mg 2 Tab, Oral, Daily Biotin 1000mcg tablet 1 Tab, Oral, Daily diphenhydrAMINE 50 mg/1 mL inj 25 mg 0.5 mL, IV Push, Daily enoxaparin 40 mg/0.4 mL inj 40 mg 0.4 mL, SubCutaneous, Daily famotidine 20 mg tab 20 mg 1 Tab, Oral, Daily immune globulin (Octagam) 60 Gram 600 mL, IV Piggyback, Daily immune globulin (Octagam) 5 Gram 50 mL, IV Piggyback, Daily insulin lispro 1 unit/0.01 mL inj Scale A:, SubCutaneous, AC and at Bedtime losartan 25 mg tab 25 mg 1 Tab, Oral, Daily methylPREDNISolone SUCCinate 125 mg/2 mL inj PF 250 mg 4 mL, IV Push, Q12H omega-3 fish oil 1,000 mg cap 1,000 mg 1 Cap, Oral, Daily potassium chloride CR 10 mEq tab 1 Tab, Oral, Daily sertraline 100 mg tab 100 mg 1 Tab, Oral, Daily ubiquinone 50 mg Cap 100 mg 2 Cap, Oral, Daily Continuous: (0) PRN: (8) acetaminophen 325 mg tab 650 mg 2 Tab, Oral, Q4H docusate sodium 100 mg cap 100 mg 1 Cap, Oral, BID hydrALAZINE 20 mg/1 mL inj 5 mg 0.25 mL, IV Push, Q4H LORazepam 1 mg tab 1 mg 1 Tab, Oral, BID LORazepam 2 mg/mL inj 1 mg 0.5 mL, IV Push, Q4H morphine 2 mg/1 ml inj 2 mg 1 mL, IV Push, Q2H ondansetron 4 mg/2 mL inj 4 mg 2 mL, IV Push, Q4H polyethylene glycol 3350 pwd 17 g pkt 17 Gram 1 Packet, Oral, Daily Problem list: Medical At risk for sleep apnea / IMO [id number] / Confirmed, Active Problems (3) At risk for sleep apnea HLD (hyperlipidemia) HTN (hypertension) Objective VS/Measurements Vitals Signs (last 24 hrs) Last Charted Minimum Maximum Temp 98.3 (FEB 12 06:04) 97.8 (FEB 11:21) 98.5 (FEB 11 15:30) Mon HR 84 (FEB 12 06:04) 68 (FEB 11:21) 94 (FEB 11 10:00) Resp Rate 16 (FEB 12 06:04) 16 (FEB 11 15:30) 18 (FEB 11 10:00) SBP 138 (FEB 12 06:04) 101 (FEB 11 18:00) H 160 (FEB 12 01:55) DBP 77 (FEB 12 06:04) 62 (FEB 11 18:00) 86 (FEB 12 01:55) MAP 110 (FEB 12 06:04) 72 (FEB 11 18:00) 110 (FEB 12 06:04) SpO2 L 93 (FEB 12 06:04) L 93 (FEB 11 09:00) 95 (FEB 11 10:00) General: No acute distress. Eye: Normal conjunctiva. HENT: Normocephalic. Neck: Supple, No jugular venous distention. Respiratory: Lungs are clear to auscultation, Respirations are non-labored, Breath sounds are equal. Cardiovascular: Normal rate, Regular rhythm, No gallop, S1+ S2 No S3 or S4 [place].. Gastrointestinal: Soft, Non-tender, Non-distended, Normal bowel sounds. Genitourinary: No costovertebral angle tenderness. Lymphatics: No lymphadenopathy neck, axilla, groin. Musculoskeletal: Normal range of motion, Normal strength. Integumentary: Warm, Dry, No rash. Neurologic: Alert, Oriented, She has bilateral upper and lower extremity weakness-lower ext more so than upper. Psychiatric: Cooperative, Appropriate mood & affect. Results Review General results Interpretation: FEB 11 12:08 138 107 H 37 / H 154 4.1 24 0.90 \ FEB 11 12:08 \ 13.7 / H 13.7 254 / 40.1 \ Labs (Last four charted values) WBC H 13.7 (FEB 11) 6.3 (FEB 06) 7.8 (NOV 18) HB 13.7 (FEB 11) 12.6 (FEB 06) 12.8 (NOV 18) HCT 40.1 (FEB 11) 39.0 (FEB 06) 38.8 (NOV 18) Plt 254 (FEB 11) 192 (NOV ) 222 (NOV 18) Na 138 (FEB 11) 139 (NOV ) 140 (NOV 18) K 4.1 (FEB 11) 3.7 (FEB 06) 3.6 (NOV 18) Cl 107 (FEB 11) 108 (NOV ) 108 (NOV 18) CO2 24 (FEB 11) 29 (NOV ) 28 (NOV 18) BUN H 37 (NOV 24) 18 (NOV 19) H 24 (NOV 18) Cr 0.90 (JAN 24) 0.90 (FEB 06) 1.00 (NOV 18) Glu R H 154 (FEB 11) 88 (NOV ) 97 (NOV 18) Ca 9.1 (FEB 11) 9.1 (FEB 06) 9.1 (NOV 18) PT 11.0 (FEB 06) INR 1.0 (FEB 06) PTT 25.9 (FEB 06) AST 12 (FEB 11) 14 (NOV 18) ALT 26 (FEB 11) 26 (FEB 05) ALK P 73 (FEB 11) 73 (FEB 05) T Bili 0.4 (FEB 11) 0.3 (FEB 05) PTN 7.4 (FEB 11) 7.7 (FEB 05) ALB 3.4 (FEB 11) 3.8 (FEB 05) No Radiology Results Found Impression and Plan Diagnosis -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 etiology-s/p LP now -poor bowel-bladder function controlled -Pyuria-but doubt UTI-NO UTI I think -SUHAS positive-? significance-screen send out-pending -Essential hypertension-marginal BP-orthostatic hypotension -Hyperlipidemia -Recent left knee surgery -Anxiety and depression Plan reduced cozar, dc'd HCTZ, pt to push fluids, watch bp closely neuro checks, extensive neuro w/u underway, Neurology following, follow SUHAS screen rheumatology consult-I d/w Dr Arnold, will also get nsy involved steroids now being added at a lower dose per per Dr Weiss-I d/w Dr Weiss on 02/07 IVIG added, ,follow labs prn, reviewed MRI cervical thoracic and lumbar spine Physical occupational and speech therapy consultation, Plan of care was discussed with the patient and family-difficult problem documented in this encounter Plan of Treatment Not on file documented as of this encounter Visit Diagnoses Not on filedocumented in this encounter
--- OUTSIDE RECORDS SUMMARY | 2024-09-11 10:46 | XMS_ITS | Encounter Summary ---
Author Organization [employer] i[employer] Address [address] [place] [address] Care Team Providers Care Wild Animal Caretaker Name Role Phone Unavailable Primary Care Provider Unavailabl e Encounter Details Date Type Department Care Team (Late st Contact Info) Description 02/13/2019 Transcribed Document [facility] [place] Family Medicine [address] [place] [address] ProviderYusuf MD [address], [place] [id number] Social History Tobacco Use Types Packs/Day Years Used Date Smoking Tobacco: Never Assessed Comments Unknown Sex and Gender Information Value Date Recorded Sex Assigned at Female 09/17/2021 5:37 PM CDT Legal Sex Female 5:37 PM CDT Gender Identity Female 09/17/2021 5:37 PM CDT Sexual Orientation Not on file documented as of this encounter Miscellaneous Notes * Cerner Conversion Note - Historical ProviderMD - 02/13/2019 5:04 PM FREEZER ASSISTANT Patient: FRANKY SCOTT Age: 74 Years Sex: Female : 1945 Subjective Patient walked 375 feet with a rolling walker in PT today . Feels like she is getting stronger. She was started on oral Prednisone 60 mg a day yesterday and is tolerating so far. I appreciate Rheumatology consult . Dr. Allen feels that the positive SUHAS may be a false positive and does not have a high suspicion that her transverse myelitis is secondary to lupus. Review of Systems Cardiac - denies any chest pain. Objective Vitals & Measurements T: 36.3 ??C TMIN: 36.3 ??C TMAX: 36.7 ??C HR: 73(Monitored) RR: 18 BP: 133/83 SpO2: 98% Physical Exam EOMI Speech - fluent Motor - 5/5 in both arms. 4- 4+/5 in both legs. TESTS Lyme Disease - negative. Assessment/Plan Franky Scott is a 74-year-old female, who for the last year has been battling left knee pain and even had arthroscopic surgery for torn meniscus. In December, she began having weakness and numbness in her legs that is progressive but intermittent. The patient was admitted to our hospital on February 05 from an outpatient neurology clinic as an MRI of the brain suggested abnormal signal in the cervical spinal cord. A dedicated MRI of spine done as an inpatient on February 07 confirms abnormal signal in the cord from cervicomedullary junction to the C4-C5 level . The patient had a lumbar puncture on February 06 that so far is normal except for a mildly elevated protein. Out of concern for an autoimmune transverse myelitis, I started 500 mg IV Solumedrol bid on February 06 . However, I held the high dose steroids on February 07 as the patient felt that the steroids had made her weaker. Her SUHAS has come back positive at 1: 160 . I reintroduced IV Solumedrol at 250 mg bid on the evening of February 09 but she felt that this made her weaker and she has been refusing this since yesterday. Out of concern for an autoimmune transverse myelitis, the patient also received 2 gm / kg of ideal body weight IVIG over February 11 and February 12 . I have also started the patient on oral Prednisone 60 mg a day on February 12. Dr. Allen of Rheumatology saw the patient yesterday for her elevated SUHAS and does not have a high suspicion that the patient has lupus. The differential for her transverse myelitis could include one or combination of the followin. Demyelinating disease such as multiple sclerosis, acute disseminated encephalomyelitis, or even neuromyelitis optica. 2. Structural disease of her spine, such as an arteriovenous fistula or dural fistula not being seen on her MRI . 3. Infection. 4. An autoimmune process such as lupus or Sjogren syndrome. 5. Nutritional deficiency. 6. Cancer such as carcinomatous meningitis or even a paraneoplastic syndrome. 7. Toxin exposure. 8. Vasculitis. 9. Ischemia such as a spinal cord infarction. 10. Sarcoidosis. 11. Idiopathic . 12. Lupus anticoagulant syndrome. At this time, I would recommend the followin. Lovenox for DVT prevention. 2. Follow up on CSF studies. 3. Follow up on lupus anticoagulant. 4. If not cause can be found , consideration could be given to sending off MOG antibodies. 5. Follow up on NMO antibodies. 6. Pepcid given anticipated need for steroids. 7. Sliding scale insulin for now given anticipated need for steroids. 8. Will order a CT of chest , abdomen and pelvis with and without contrast to look for any signs of sarcoidosis and /or a cancer looking for a paraneoplastic syndrome. 9. Given her worsening weakness of February 07 I have stopped Lipitor . 10. Will order Ativan bid prn for anxiety. 11. Continue Prednisone at 60 mg a day for now. 12. Patient tells me that she would like to consider inpatient Rehab unit and I think this is reasonable. 13. I have considered sending off a serologic paraneoplastic panel but decided to hold off for now as she has just received IVIG which could potentially cause a false positive on this test. I have spent over 35 minutes on this case today . Over half that time was spent counseling patient and her family . Medications Inpatient Biotin 1000mcg tablet, 1 Tab, Oral, Daily Coenzyme Q10, 100 mg= 2 Cap, Oral, Daily Colace, 100 mg= 1 Cap, Oral, BID, PRN Cozaar, 25 mg= 1 Tab, Oral, Daily Fish Oil, 1000 mg= 1 Cap, Oral, Daily hydrALAZINE, 5 mg= 0.25 mL, IV Push, Q4H, PRN insulin lispro sliding scale, Scale A:, SubCutaneous, AC and at Bedtime LORazepam, 1 mg= 0.5 mL, IV Push, Q4H, PRN LORazepam, 1 mg= 1 Tab, Oral, BID, PRN Lovenox, 40 mg= 0.4 mL, SubCutaneous, Daily MiraLax, 17 Gram= 1 Packet, Oral, Daily, PRN morphine, 2 mg= 1 mL, IV Push, Q2H, PRN Pepcid, 20 mg= 1 Tab, Oral, Daily potassium chloride 10 mEq oral tablet, extended release, 1 Tab, Oral, Daily predniSONE, 60 mg= 3 Tab, Oral, Daily Tylenol, 650 mg= 2 Tab, Oral, Q4H, PRN Zofran, 4 mg= 2 mL, IV Push, Q4H, PRN Zoloft, 100 mg= 1 Tab, Oral, Daily Electronically signed by [facility] Conversion Wage And Hour Investigator Cerner at 07/07/2022 9:59 PM CDT documented in this encounter Plan of Treatment Not on file documented as of this encounter Visit Diagnoses Not on filedocumented in this encounter
--- OUTSIDE RECORDS SUMMARY | 2024-09-11 10:46 | XMS_ITS | Encounter Summary ---
Author Organization [employer] Address [address] [place] [address] Care Team Providers Care Corrugator Operator Helper Name Role Phone Unavailable Primary Care Provider Unavailabl e Encounter Details Date Type Department Care Team (Late st Contact Info) Description 02/12/2019 Transcribed Document [facility] [place] Family Medicine [address] [place] [address] ProviderYusuf MD [facility] [place] [id number] Social History Tobacco Use Types Packs/Day Years Used Date Smoking Tobacco: Never Assessed Comments Unknown Sex and Gender Information Value Date Recorded Sex Assigned at Female 09/17/2021 5:37 PM CDT Legal Sex Female 5:37 PM CDT Gender Identity Female 09/17/2021 5:37 PM CDT Sexual Orientation Not on file documented as of this encounter Miscellaneous Notes * Cerner Conversion Note - Historical ProviderMD - 02/12/2019 2:00 AM JIG BOX OPERATOR Sectional Belt Mold Assembler Details Entered On: 02/12/2019 4:19 EST Performed On: 02/12/2019 2:00 EST by JAYA [place] REGISITERED_NURSE Order Details Transport Mode Order Detail : Wheelchair Isolation Precautions Order Detail : Standard Precautions Order Detail : N/A IV Order Detail : 1 Oxygen Order Detail : 0 Nurse Collect Order Detail : 0 Lift/Transfer : Minimal Central Line Order Detail : No Room Service : Appropriate Arterial Line : No JAYA [place] REGISITERED_NURSE - 02/12/2019 4:19 EST documented in this encounter Plan of Treatment Not on file documented as of this encounter Visit Diagnoses Not on filedocumented in this encounter
--- OUTSIDE RECORDS SUMMARY | 2024-09-11 10:46 | XMS_ITS | Encounter Summary ---
Author Organization [email or web address] Address [address] [place] [address] Care Team Providers Care Sewage Reticulation Drafting Officer Name Role Phone Unavailable Primary Care Provider Unavailabl e Encounter Details Date Type Department Care Team (Late st Contact Info) Description 02/13/2019 Transcribed Document [facility] [place] Family Medicine [address] [place] [address] ProviderYusuf MD [facility] [place], [place] [address] Social History Tobacco Use Types Packs/Day Years [...] Conversion Note - Historical ProviderMD - 02/13/2019 5:00 PM TECHNOLOGY SUPPORT ANALYST Chart Check - Review Order Profile Entered On: 02/13/2019 19:19 EST Performed On: 02/13/2019 17:00 EST by Giselle Stanley RN Chart Check All Active Orders Reviewed : Yes Giselle Stanley RN - 02/13/2019 19:19 EST documented in this encounter Plan of Treatment Not on file documented as of this encounter Visit Diagnoses Not on filedocumented in this encounter
--- OUTSIDE RECORDS SUMMARY | 2024-09-11 10:46 | XMS_ITS | Encounter Summary ---
Author Organization [employer] Address [address] [place] [address] Care Team Providers Care Ornamental Metal Worker Name Role Phone Unavailable Primary Care Provider Unavailabl e Encounter Details Date Type Department Care Team (Late st Contact Info) Description 02/08/2019 Transcribed Document [facility] [place] Family Medicine [address] [place] [address] ProviderYusuf MD [facility] [place], [place] [address] Social History Tobacco Use Types Packs/Day Years Used Date Smoking Tobacco: Never Assessed Comments Unknown Sex and Gender Information Value Date Recorded Sex Assigned at Female 09/17/2021 5:37 PM CDT Legal Sex Female 5:37 PM CDT Gender Identity Female 09/17/2021 5:37 PM CDT Sexual Orientation Not on file documented as of this encounter Miscellaneous Notes * Cerner Conversion Note - Historical ProviderMD - 02/08/2019 6:01 AM CREATIVE PROJECT MANAGER Event Note Entered On: 02/08/2019 6:04 EST Performed On: 02/08/2019 6:01 EST by Lesly Colindres RN Event Note Event Date/Time : 02/08/2019 6:00 EST Description of Event : Patient complaining of an increased weakness in extremities, increased shortness of breath, and increased anxiety. Pt states she is unable to move extremities but when asked to do so RN has visualized patient moving extremities. Pt stating she is barely able to speak but is able to answer RNs questions. Dr. Bales notified. Order to stop IV steriods and noted he would be in to see patient today and discuss status. Will continue to monitor. Lesly Colindres RN - 02/08/2019 6:01 EST Electronically signed by [facility] Conversion Six Sigma Project Manager Ana at 07/07/2022 9:53 PM CDT documented in this encounter Plan of Treatment Not on file documented as of this encounter Visit Diagnoses Not on filedocumented in this encounter
--- OUTSIDE RECORDS SUMMARY | 2024-09-11 10:46 | XMS_ITS | Encounter Summary ---
Author Organization [employer] Address [address] [place] [address] Care Team Providers Care Residential Supervisor Name Role Phone Unavailable Primary Care Provider Unavailabl e Encounter Details Date Type Department Care Team (Late st Contact Info) Description 02/12/2019 Transcribed Document [facility] Radiology [address] [place] [address] Claudio Allen MD [address] [place] [id number] Social History Tobacco Use Types Packs/Day Years Used Date Smoking Tobacco: Never Assessed Comments Unknown Sex and Gender Information Value Date Recorded Sex Assigned at Female 09/17/2021 5:37 PM CDT Legal Sex Female 5:37 PM CDT Gender Identity Female 09/17/2021 5:37 PM CDT Sexual Orientation Not on file documented as of this encounter Miscellaneous Notes * Cerner Conversion Note - Claudio Allen MD - 02/12/2019 5:58 PM EST DATE OF CONSULTATION: 02/12/2019 REASON FOR CONSULTATION: Evaluate for positive SUHAS and concerned about systemic lupus. HISTORY OF PRESENT ILLNESS: The patient is a very pleasant 74-year-old female who was admitted to the hospital with progressive weakness involving both upper and lower extremities. During her workup in the hospital, she was found to have diffuse abnormal signal throughout the cord from cervicomedullary junction all the way to the C4-C5 levels. There was mild enhancement of the cord. The diagnosis of transverse myelitis was made. The lumbar puncture shows mild pleocytosis with elevated CSF protein level. No infections were found. Detail studies including viral workup were negative. During this extensive workup and evaluation, she was found to have a positive SUHAS screen at 1:160 with a speckled pattern. I was called to see this patient for possible systemic lupus as an etiology for transverse myelitis. History is obtained from the patient as well from her , who I know very well as an outpatient. I have also discussed the case with her primary neurologist, Dr. Johan Sue, and also her admitting physician, Dr. ePters. She does not have any known history of photosensitivity, joint pain or joint swelling, serositis, cytopenias, nasal and mouth sores, thrombosis, or hair loss. She does have a history of degenerative arthritis, osteoarthritis, especially involving the left knee for which she underwent arthroscopy. However, in the last few weeks prior to her admission at [facility], she noticed progressive weakness to the point that she was not able to stand and walk, and was admitted to the hospital. REVIEW OF SYSTEMS: As detailed above, otherwise, rest of the review of systems is negative. PAST MEDICAL HISTORY: Significant for degenerative arthritis, hyperlipidemia, hypertension. MEDICATIONS: Reviewed as per database in the chart. As an outpatient, she was on; 1. Lipitor as well as hydrochlorothiazide. 2. Further she takes Zoloft. SOCIAL HISTORY: She is . Lives with her . She does not smoke cigarettes and does not drink alcohol. She has a normal active lifestyle prior to this admission. FAMILY HISTORY: Significant for degenerative arthritis besides questionable history of lyme disease in one of her sisters and possible lupus in her hand. PHYSICAL EXAMINATION: GENERAL: Significant for well-nourished, well-hydrated female who is lying comfortably in bed, in no acute distress. VITAL SIGNS: She has a blood pressure of 126/78, pulse 88 and regular. Temperature is 97.8 degrees Farenheit. She is afebrile. SKIN: Examination is without any acute lesions. In particular, no peripheral vasculitic lesions noted. No periungual erythema noted. There is no skin thickening or skin tightening. HEENT: Mucous membranes are moist. She has good salivary pool. LUNGS: Clear to auscultation. CVS: Regular rate and rhythm. ABDOMEN: Soft and nontender. FIELD CLINICAL ENGINEER: Demonstrate ability to move both upper and lower extremities. Upper extremity strength is normal at 5/5 in both proximal and distal extremities. Low extremity strength shows slightly diminished hip flexors at 4+/5, otherwise, normal. No focal neurologic deficit noted. MUSCULOSKELETAL: Positive for age-appropriate osteoarthritic changes, otherwise, no acute findings noted. DIAGNOSTIC STUDIES: LABORATORY RESULTS: Pertinent labs to include CSF with total white cell count 4, 60% neutrophil, and 40% monocytes. CSF glucose 58, CSF protein 67. Serum angiotensin-converting enzyme normal. SUHAS screen positive at 1:160 with a speckled and homogenous pattern. Anti-SSA and anti-SSB antibodies are both negative. Bacteriology screen negative. Mycobacterium screen negative. Viral screen negative. Hematology with WBC count 7.8, hemoglobin 12.8 g, platelets 222 K. Metabolic panel with BUN 24, creatinine 1.0 mg/dL. Liver function normal. Urinalysis blunt with negative protein. ESR 6 mm/hour. 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 Etiology likely idiopathic in nature. So far, infectious disease viral and bacterial workup has been negative. Clinically, she does not have any stigmata for a connective tissue disease process. In particular, she does not have any feature of systemic lupus, Sjogren's syndrome, a mixed connective tissue disease process. Similarly, she does not have any clinical, historical evidence of sarcoidosis. A low positive SUHAS screen at 1:160 is of no clinical significance and is likely false positive. I have discussed my findings and impression with the patient and her . I have also discussed the case with Dr. Peters, the admitting physician, as well as Dr. Johan Sue, her neurologist. I fully agree with the current management of transverse myelitis including use of steroids which unfortunately she was not able to tolerate the IV and is going to start oral prednisone at 60 mg once a day. She has also received one dose of IVIG at 2 g per kg bodyweight divided over 2 days. She would need to follow closely as an outpatient with Dr. Johan Sue with slow taper of the steroids and also possible monthly use of IVIG based on her clinical progress and tolerance. She will also benefit from inpatient rehabilitation. As far as rheumatology workup is concerned, I do not see need for further workup or investigation. Certainly, I will be happy to see her if there is any question down the road, otherwise, there is no need for a regular rheumatology followup. and the patient were comfortable with the discussion. /[id number] Christiano Allen MD ROONEY/AQ / ROONEY / MODL /[id number] CC: MD Johan Leone MD Haider Abbas, MD Imran A Khan, MD Electronically signed by [facility] Conversion Clinical Technician Cerner at 07/07/2022 9:59 PM CDT documented in this encounter Plan of Treatment Not on file documented as of this encounter Visit Diagnoses Not on filedocumented in this encounter
--- OUTSIDE RECORDS SUMMARY | 2024-09-11 10:46 | XMS_ITS | Encounter Summary ---
Author Organization [email or web address] Address [address] [place] [address] Care Team Providers Care Cognos Architect Name Role Phone Unavailable Primary Care Provider Unavailabl e Encounter Details Date Type Department Care Team (Late st Contact Info) Description 02/12/2019 Transcribed Document [facility] [place] Family Medicine [address] [place] [address] ProviderYusuf MD [address] [place], [place] [id number] Social History Tobacco Use Types Packs/Day Years [...] Conversion Note - Historical ProviderMD - 02/12/2019 5:00 PM OBSERVER HELPER Chart Check - Review Order Profile Entered On: 02/12/2019 17:07 EST Performed On: 02/12/2019 17:00 EST by Sandra Mancilla RN Chart Check Powerplans Initiated/Discontinued as Appropriate : Yes All Active Orders Reviewed : Yes Sandra Mancilla RN - 02/12/2019 17:07 EST documented in this encounter Plan of Treatment Not on file documented as of this encounter Visit Diagnoses Not on filedocumented in this encounter
--- OUTSIDE RECORDS SUMMARY | 2024-09-11 10:46 | XMS_ITS | Encounter Summary ---
Author Organization [employer] Address [address] [place] [address] Care Team Providers Care Public Health Physician Name Role Phone Unavailable Primary Care Provider Unavailabl e Encounter Details Date Type Department Care Team (Late st Contact Info) Description 02/07/2019 Transcribed Document [facility] [place] Family Medicine [address] [place] [address] ProviderYusuf MD [facility] [place], [place] [address] Social History Tobacco Use Types Packs/Day Years [...] Conversion Note - Historical ProviderMD - 02/07/2019 9:04 AM FIELD ACCOUNT DIRECTOR On Going Discharge Planning Entered On: 02/07/2019 9:05 EST Performed On: 02/07/2019 9:04 EST by ALECIA GOMEZ RN-Jig And Fixture RepairerNon Destructive Testing Engineer Progress Note Discharge Arrangements : Patient Post-Acute Information Patient Name: FRANKY SCOTT Gender: Female : [birth year] Age: 74 Years No Post-Acute Placement(s) Listed No Post-Acute Service(s) Listed No [place] Referral(s) Listed Discharge Options Discussed with Patient : Discharge transportation, DME, Home Health, Short term rehabilitation Barriers to Discharge Identified : Clinical Condition of Patient Barriers to Discharge Unresolved : Clinical Condition of Patient Is the Patient Meeting Medical Necessity : Yes ALECIA GOMEZ RN-Jig And Fixture Repairer - 02/07/2019 9:04 EST Narrative Progress Note Narrative Progress Note : CM reviewed chart. RRS 38. Cm to room to met pt. Pt spouse in room. spouse stated that pt is off floor for Xray. Spouse stated that DCP is to discharge home with family. Possible hh if a need. CM will continue to follow for d/c needs. ALECIA GOMEZ, RN-Jig And Fixture Repairer - 02/07/2019 9:04 EST Electronically signed by [facility] Conversion Addiction Nurse Cerner at 07/07/2022 9:51 PM CDT documented in this encounter Plan of Treatment Not on file documented as of this encounter Visit Diagnoses Not on filedocumented in this encounter
--- OUTSIDE RECORDS SUMMARY | 2024-09-11 10:46 | XMS_ITS | Encounter Summary ---
Author Organization [employer] Address [address] [place] [address] Care Team Providers Care Sample Cutter Name Role Phone Unavailable Primary Care Provider Unavailabl e Encounter Details Date Type Department Care Team (Late st Contact Info) Description 02/13/2019 Transcribed Document [facility] [place] Family Medicine [address] [place] [address] ProviderYusuf MD [facility] [place], [place] [id number] Social History Tobacco Use Types Packs/Day Years [...] Conversion Note - Historical ProviderMD - 02/13/2019 4:17 PM HORSE IDENTIFIER On Going Discharge Planning Entered On: 02/13/2019 16:20 EST Performed On: 02/13/2019 16:17 EST by Neva Cotto RN Care Management Progress Note Discharge Arrangements : Patient Post-Acute Information Patient Name: FRANKY DEWITT Gender: Female : [birth year] Age: 74 Years No Post-Acute Placement(s) Listed No Post-Acute Service(s) Listed No Curaspan Referral(s) Listed Discharge Options Discussed with Patient : Short term rehabilitation Barriers to Discharge Identified : Clinical Condition of Patient Barriers to Discharge Unresolved : Clinical Condition of Patient Patient Offered Choice/Affiliations Explained : Yes Is the Patient Meeting Medical Necessity : Yes Did you Attend Multidisciplinary Rounds? : Yes Neva Cotto RN - 02/13/2019 16:17 EST Narrative Progress Note Narrative Progress Note : Patient chose [facility] for STR. CM notified that patient has been approved for admission. Dr. Bales in to speak with patient, family and CM. Will order diagnostic scand for tomorrw and plan on admission to [facility] on , 02/15. Historical Progress Note : 74 year old female direct admit from PCP office. Bilateral upper and lower extremity weakness for 3 weeks. S/P Left knee steroid injection 01/15. MRI brain - abnormal signal upper spinal cord. Possible myelitis. Consults to Neuro, Neuro Sugery, PT/OT. Patient feels much better after IV IG. CM had discussion with patient and her regarding STR versus home with home health. They would prefer STR. Patient's first choice would be [facility] and second choice is [facility]. Referrals sent through [facility]. CM will continue to follow. Neva Cotto RN - 02/13/19 09:37:24 MICHAELA reviewed chart. Neuro consult and following, MRI Cervical Thor. and Lumbar Spine. Discussed DCP with pt including HH vs Rehab. CM Will continue to follow for d/c needs. ALECIA GOMEZ RN-Stenotype Operator - 02/09/19 14:52:38 CM reviewed chart. Cm met with pt to discuss DCP. Pt stated she lives at home with her . Stated she was independent prior to issues she is having now. CM discussed and educated pt on Rehab vs HH. Pt is open to both. Stated depends on the need she has. Pt does not have a choice at this time. She wants to discuss further with . CM will continue to follow for d/c needs. ALECIA GOMEZ RN-Stenotype Operator - 02/08/19 09:16:23 MICHAELA reviewed chart. RRS 38. Cm to room to met pt. Pt spouse in room. spouse stated that pt is off floor for Xray. Spouse stated that DCP is to discharge home with family. Possible hh if a need. CM will continue to follow for d/c needs. ALECIA GOMEZ RN-Stenotype Operator - 02/07/19 09:05:36 Neva Cotto RN - 02/13/2019 16:17 EST Electronically signed by [facility] Conversion Election Clerk Cerner at 07/07/2022 9:59 PM CDT documented in this encounter Plan of Treatment Not on file documented as of this encounter Visit Diagnoses Not on filedocumented in this encounter
--- OUTSIDE RECORDS SUMMARY | 2024-09-11 10:46 | XMS_ITS | Encounter Summary ---
Author Organization [employer] Address [address] [place] [address] Care Team Providers Care Gericare Aide Teacher Name Role Phone Unavailable Primary Care Provider Unavailabl e Encounter Details Date Type Department Care Team (Late st Contact Info) Description 02/07/2019 Transcribed Document [facility] [place] Family Medicine [address] [place] [address] ProviderYusuf MD [address] [place], [place] [id number] Social History Tobacco Use Types Packs/Day Years [...] Conversion Note - Historical ProviderMD - 02/07/2019 5:00 PM STEAM PRESSER Chart Check - Review Order Profile Entered On: 02/07/2019 15:28 EST Performed On: 02/07/2019 17:00 EST by ROLY MEDEIROS RN Chart Check Powerplans Initiated/Discontinued as Appropriate : Yes All Active Orders Reviewed : Yes ROLY MEDEIROS RN - 02/07/2019 15:28 EST documented in this encounter Plan of Treatment Not on file documented as of this encounter Visit Diagnoses Not on filedocumented in this encounter
--- OUTSIDE RECORDS SUMMARY | 2024-09-11 10:46 | XMS_ITS | Encounter Summary ---
Author Organization [employer] Address [address] [place] [address] Care Team Providers Care Machine Operator Picker Name Role Phone Unavailable Primary Care Provider Unavailabl e Encounter Details Date Type Department Care Team (Late st Contact Info) Description 02/08/2019 Transcribed Document [facility] [place] [address] [place] [address] ProviderYusuf MD [facility] [place] [address] Social History Tobacco Use Types Packs/Day Years [...] Conversion Note - Historical ProviderMD - 02/08/2019 2:23 PM DREDGE HAND Patient: FRANKY SCOTT Age: 74 Years Sex: Female : 1945 Subjective Yesterday morning before patient received steroids, the patient was encouraged that she seemed a little better and yesterday in PT , she walked 440 feet with a gait belt and walker. However the patient tells me that yesterday shortly after receiving the first dose of 500 mg IV of Solumedrol, her extremities began feeling heavier and she was having more trouble raising her legs. When I heard this complaint yesterday afternoon I talked to her and asked if she wanted to continue the high dose steroids. She told me that she did. Yesterday evening , she received the second dose of 500 mg of Solumedrol . Through the night she states that she felt even weaker and now cannot get out of bed. Review of Systems Respiratory - patient had some shortness of breath overnight and is now wearing 02 by [place]. Psychiatric - patient received some IV Lorazepam overnight for anxiety . She denies any suicidality . Objective Vitals & Measurements T: 36.6 ??C TMIN: 36.3 ??C TMAX: 36.8 ??C HR: 83(Monitored) RR: 16 BP: 143/85 SpO2: 97% WT: 80 kg Physical Exam Patient lying comfortably in bed wearing 02 by [place]. Motor - 4/5 in both arms. 2/5 in both legs. EOMI TESTS Serum AUSTEN level - normal . ESR and CRP - normal HIV - Non reactive. SS - A and SS - B antibodies - normal Serum RPR - negative. CSF Cytology - negative. Assessment/Plan Franky Scott is a [...] I started 500 mg IV Solumedrol bid yesterday . However, the patient has developed worsening weakness of undetermined etiology soon after starting high dose steroids. The differential for her myelopathy could include one or combination of the followin. Demyelinating disease such as multiple sclerosis, acute disseminated encephalomyelitis, or even neuromyelitis optica. 2. Structural disease of her spine, such as an arteriovenous fistula or dural fistula not being seen on her MRI . 3. Infections such as HIV, syphilis, or Lyme disease. 4. An autoimmune process such as lupus or Sjogren syndrome. 5. Nutritional deficiency. 6. Cancer such as carcinomatous meningitis or even a paraneoplastic syndrome. 7. Toxin exposure. 8. Vasculitis. 9. Ischemia such as a spinal cord infarction. 10. Sarcoidosis. 11. Idiopathic transverse myelitis. At this time, I would recommend the followin. Lovenox for DVT prevention. 2. Follow up on CSF studies. 3. Follow up on SUHAS and Lyme Disease antibodies. 4. If not cause can be found , consideration could be given to sending off MOG antibodies. 5. Follow up on NMO antibodies. 6. Pepcid given anticipated need for steroids. 7. Sliding scale insulin for now given anticipated need for steroids. 8. I am not certain as to why she got weaker over the last 24 hours but will hold steroids for now in case steroids had anything to do with her worsening. 9. Given her worsening weakness , will stop Lipitor and check a CK . 10. Will order Ativan bid prn for anxiety. I have spent over 25 minutes on this case today . Over half that time was spent counseling patient and and daughter regarding my plans. Medications Inpatient Biotin 1000mcg tablet, 1 Tab, Oral, Daily Coenzyme Q10, 100 mg= 2 Cap, Oral, Daily Colace, 100 mg= 1 Cap, Oral, BID, PRN Cozaar, 25 mg= 1 Tab, Oral, BID Fish Oil, 1000 mg= 1 Cap, Oral, Daily hydrALAZINE, 5 mg= 0.25 mL, IV Push, Q4H, PRN hydroCHLOROthiazide, 12.5 mg= 0.5 Tab, Oral, Daily insulin lispro sliding scale, Scale A:, SubCutaneous, [...] tablet, extended release, 1 Tab, Oral, Daily Tylenol, 650 mg= 2 Tab, Oral, Q4H, PRN Zofran, 4 mg= 2 mL, IV Push, Q4H, PRN Zoloft, 100 mg= 1 Tab, Oral, Daily documented in this encounter Plan of Treatment Not on file documented as of this encounter Visit Diagnoses Not on filedocumented in this encounter
--- OUTSIDE RECORDS SUMMARY | 2024-09-11 10:46 | XMS_ITS | Encounter Summary ---
Author Organization [employer] Address [address] [place] [address] Care Team Providers Care Operating Systems Specialist Name Role Phone Unavailable Primary Care Provider Unavailabl e Encounter Details Date Type Department Care Team (Late st Contact Info) Description 02/07/2019 Transcribed Document [facility] Radiology [address] [place] [address] Anne Peters MD [address] [place] [address] [address] [place] [address] Social History Tobacco Use Types Packs/Day Years [...] Conversion Note - Anne Peters MD - 02/07/2019 10:23 AM EST Patient: FRANKY DEWITT Age: 74 years Sex: Female : 1945 Associated Diagnoses: None Author: ANNE PETERS MD-INT Subjective Primary care physician Dr Bradley CRUZ Date of admission 02/05/2019 Date of discharge Referring physician Dr. Johan Sue neurology [place] [facility] Chief complaint bilateral upper and lower [...] Her is present with her. Consultations obtained -Neurology-DR Weiss -Physical occupational and speech therapy consultation [...] CXR pending, neuro on board here. 02/08-pt Past medical history is significant for prior [...] PRN: Anxiety Lipitor: 10 mg, Oral, Daily MiraLax: 17 Gram, Oral, Daily, PRN: Constipation Tylenol: 650 mg, Oral, Q4H, PRN: Pain (Mild 1-3) Zofran: 4 mg, IV Push, Q4H, PRN: Nausea Zoloft: 100 mg, Oral, Daily hydrALAZINE: 5 mg, IV Push, Q4H, PRN: Hypertension hydroCHLOROthiazide: 12.5 mg, Oral, Daily morphine: 2 mg, IV Push, Q2H, PRN: [...] = 1 Tab, Oral, Daily , Medications (15) Active Scheduled: (8) atorvastatin 10 mg tab 10 mg 1 Tab, Oral, Daily Biotin 1000mcg tablet 1 Tab, Oral, Daily hydrochlorothiazide 25 mg tab 12.5 mg 0.5 Tab, Oral, Daily losartan 25 mg tab 25 mg 1 [...] At risk for sleep apnea / IMO [id number] / Confirmed, Active Problems (3) At risk for sleep apnea HLD (hyperlipidemia) HTN (hypertension) Objective VS/Measurements Vitals Signs (last 24 hrs) Last Charted Minimum Maximum Temp 97.7 (FEB 07 05:18) 97.7 (FEB 07 05:18) 98.1 (FEB 06 15:40) Mon HR 77 (FEB 07 05:18) 69 (FEB 06 15:40) 80 (FEB 06 22:00) Resp Rate 17 (FEB 07 05:18) 14 (FEB 06 15:40) 20 (FEB 06 11:41) SBP 128 (FEB 07 05:18) 117 (FEB 07 02:45) H 152 (FEB 06:09) DBP 82 (FEB 07 05:18) 71 (FEB 07 02:45) H 95 (FEB 06:09) MAP 102 (FEB 07 05:18) 84 (FEB 07 02:45) 126 (FEB 06 17:09) SpO2 98 (FEB 07 08:00) 94 (FEB 06 15:40) 98 (FEB 07 08:00) General: No acute distress. Eye: Normal conjunctiva. HENT: Normocephalic. Neck: Supple, No jugular venous distention. Respiratory: Lungs are clear to auscultation, Respirations are non-labored, Breath sounds are equal. Cardiovascular: Normal rate, Regular rhythm, No gallop, S1+ S2 No S3 or S4 [place].. Gastrointestinal: Soft, Non-tender, Non-distended, Normal bowel sounds. Genitourinary: No costovertebral angle tenderness. Lymphatics: No lymphadenopathy neck, axilla, groin. Musculoskeletal: Normal range of motion, Normal strength. Integumentary: Warm, Dry, No rash. Neurologic: Alert, Oriented, She has bilateral upper and lower extremity weakness. Psychiatric: Cooperative, Appropriate mood & affect. Results [...] (FEB 05) Cr 0.90 (FEB 06) 1.00 (JAN 18) Glu R 88 (FEB 06) 97 (FEB 05) Ca 9.1 (FEB 06) 9.1 (FEB 05) PT 11.0 (FEB 06) INR 1.0 (FEB 06) PTT 25.9 (FEB 06) AST 14 (FEB 05) ALT 26 (FEB 05) ALK P 73 (FEB 05) T Bili 0.3 (FEB 05) PTN 7.7 (FEB 05) ALB 3.8 (FEB 05) Radiology Results (Last 48 hours) [id number] -- 02/05/2019 10:21 MRI Spine Cervical WO W (02/05/2019 20:09) Result: MRI CERVICAL SPINE WITHOUT AND WITH CONTRASTHISTORY: Upper and lower extremity weakness/numbness.TECHNIQUE: Multiplanar MR images were performed without intravenouscontrast administration. Repeat images were performed following theadministration of 15 mL MultiHance gadolinium intravenously.FINDINGS: Motion artifact limits this examination. There is normalalignment of the cervical spine. The vertebral bodies are of normalheight with normal signal. There is no bone marrow edema. There is nosubluxation. The facets overlap at all levels. There is disc spacenarrowing at C5-C6 and C6-C7. There is abnormal signal diffuselythroughout the cord from the cervicomedullary junction to the C4-N9pdyiw. There is mild enhancement of the cord. There may be mildenlargement of the cord at this level. There is no hemorrhageidentified. Differential diagnosis for long segment neuropathy includestransverse myelitis, neuromyelitis optica, or less likely multiplesclerosis. While there is no specific mass identified, any enhancementof the cord raises the suspicion of neoplasm such as astrocytoma. Thisis felt to be much less likely.There is minimal broad-based posterior disc bulging at C4-C5. At C6-T8czzok is a central to left paracentral disc protrusion which indents thethecal sac. There is multilevel uncovertebral joint osteophyte formationand mild facet hypertrophy with some mild foraminal narrowing. This isseen bilaterally at C3-C4, on the right at C4-C5 and C5-C6, and on theleft at C6-C7.IMPRESSION: Long segment myelopathy with abnormal signal in the cordfrom the cervicomedullary junction to the C4-C5 level. There is mildenhancement. There is no hemorrhage. Differential diagnosis includestransverse myelitis, neuromyelitis optica and less likely multiplesclerosis or neoplasm. MRI Spine Lumbar WO W (02/05/2019 20:09) Result: MRI LUMBAR SPINE WITH AND WITHOUT CONTRASTHISTORY: Lumbar back pain.PROCEDURE: Pre and post gadolinium-enhanced multiplanar MR imaging ofthe lumbar spine was performed in multiple MR sequences.FINDINGS: The cord terminates appropriately. Disc signal is diminishedat L4-5 and L5-S1. There are endplate changes at L4-5 and L5-S1. Tarlovcysts are noted at S1 and S2. There is no subluxation or fracture. Theurinary bladder is distended.L3-4: There is facet hypertrophy and a mild disc bulge without stenosis.L4-5: There is facet hypertrophy and a mild disc bulge. It isaccentuated in the left neural foramen. There is mild left neuralforaminal stenosis without central stenosis.L5-S1: There is facet hypertrophy and a mild disc bulge. There is nostenosis.Postcontrast images demonstrate enhancement at the L4-5 level presumablydegenerative in nature.IMPRESSION: Cystic mass in pelvis, presumably the urinary bladder.Degenerative disc disease at L4-5 and L5-S1 without critical stenosis. MRI Spine Thoracic WO W (02/05/2019 20:09) Result: MRI THORACIC SPINE WITHOUT AND WITH CONTRASTHISTORY: Lower extremity weakness with right leg radiculopathy.TECHNIQUE: Multiplanar MR images of the thoracic spine were performedwithout intravenous contrast administration. The patient wasadministered 15 mL MultiHance gadolinium intravenously.FINDINGS: Motion artifact limits this examination. There is slightaccentuated kyphosis of the thoracic spine. This is centered at T7.There is slight leftward curvature of the lower thoracic spine. Thevertebral bodies are of normal height with normal signal. There is nobone marrow edema. The thoracic cord has normal contour and normalsignal. The conus medullaris has normal contour with normal terminationat the T12-L1 level. There is diffuse disc space narrowing and discdesiccation. There is no canal or foraminal stenosis. There is no focaldisc abnormality. There is no abnormal contrast enhancement.IMPRESSION:1. Accentuated kyphosis with mild leftward curvature of the thoracicspine.2. No abnormal vertebral body signal is identified with no fracture.3. Diffuse degenerative changes of the thoracic discs with narrowing.There is no disc protrusion or extrusion.4. The thoracic cord has normal signal and contour with no abnormalenhancement. CR Fluoro GD Lumbar Punct Dx (02/06/2019 14:40) Result: LUMBAR PUNCTURE AND FLUOROSCOPYHISTORY: Transverse myelitis.ATTENDING PHYSICIAN: Baljit Gee M.D.PHYSICIAN AUTOMOTIVE DESIGN DRAFTER: JIMBO Luque-CPROCEDURE: After informed consent was obtained [...] and dictated by Dr. Baljit Gee.Transcribed by Parker Pleitez PA-C, RLeigh AnnTLeigh Ann (N), C N M T.I have personally [...] extensive neuro w/u underway, Neurology consultation appreciated follow labs prn, reviewed MRI cervical thoracic and lumbar spine Physical occupational and speech therapy consultation Plan of care was discussed with the patient and family documented in this encounter Plan of Treatment Not on file documented as of this encounter Visit Diagnoses Not on filedocumented in this encounter
--- OUTSIDE RECORDS SUMMARY | 2024-09-11 10:46 | XMS_ITS | Encounter Summary ---
Author Organization [employer] Address [address] [place] [address] Care Team Providers Care Technical Expert Name Role Phone Unavailable Primary Care Provider Unavailabl e Encounter Details Date Type Department Care Team (Late st Contact Info) Description 02/12/2019 Transcribed Document [facility] Neurology - [address] [place] [address] Fernando Dotson MD [address] [place] [address] Social History Tobacco Use Types Packs/Day Years Used Date Smoking Tobacco: Never Assessed Comments Unknown Sex and Gender Information Value Date Recorded Sex Assigned at Female 09/17/2021 5:37 PM CDT Legal Sex Female 5:37 PM CDT Gender Identity Female 09/17/2021 5:37 PM CDT Sexual Orientation Not on file documented as of this encounter Miscellaneous Notes * Cerner Conversion Note - Fernando Dotson MD - 02/12/2019 3:11 PM EST Patient: FRANKY DEWITT Age: 74 Years Sex: Female : 1945 Chief Complaint weakness in arms and legs since december and has worsen, numbness in feet and uncontrollable bladder and bowel funciton Reason for Consultation Extremity weakness History of Present Illness I am seeing Ms. Dewitt at the request of Anne Peters MD for neurosurgical evaluation of upper and lower extremity weakness. She is a pleasant 74 y/o who presented to Dr. Sue's office a week ago. She had been having about a month or so of progressive gait changes/upper and lower extremity weakness/increased numbness and tingling in feet. She was found to be myelopathic with significant weakness in her lower extremities, with mild deltoid weakness. She had a cranial MRI that did not show any intracranial issues, but did show increased cord signal in her upper cervical spine. Her clinical picture and incomplete imaging of her cervical spine was concerning for transverse myelitis. She was admitted to [facility] on 02/05/2019 under the medicine service for further workup. During his hospital course, he had MRI studies of his cervical, thoracic and lumbar spines with and without contrast. This revealed abnormal cord signal from the cervicomedullary area to around C4/5. She was started on steroids. A lumbar puncture was performed. This showed some mildly elevated protein, but otherwise unremarkable. Further lab work revealed positive SUHAS. She was placed on high does steroids, but apparently was unable to tolerate this and had increased weakness after this was stared. Yesterday she was started on IVIG. Overall, she tells me that her strength has been improving since admission. Neurosurgery has been consulted to weigh in on surgical options for her weakness. Review of Systems 14 point ROS negative except where noted in HPI above. Vital Signs T: 36.3 ??C TMIN: 36.3 ??C TMAX: 36.9 ??C HR: 84(Monitored) RR: 16 BP: 101/61 SpO2: 98% Oxygen Settings (Last) Oxygen Therapy Mode: Room air (02/12/19 09:26:00) Oxygen Flow Rate: 2 Liter/Min (02/11/19 10:00:00) Physical Exam Sitting up in bed, nad a/a/o mood appropriate speech fluent cn ii-xii grossly intact lue 5/5 d, 5/5 b, 5/5 t, 5/5 computer operations analyst rue 5/5 d, 5/5 b, 5/5 t, 5/5 computer operations analyst lle 4+/5 hf, 4+/5 ke, 4+/5 df, 4+/5 pf rle 4+/5 hf, 4+/5 ke, 4+/5 df, 4+/5 pf silt +hoffmans dtr 3+ at knees b/l upward toes did not walk pt out of concern for falls. Assessment/Plan Ms. Dewitt is a pleasant 74 y/o who presents with over a month of progressive myelopathy. Her cervical, thoracic, and lumbar MRIs were reviewed with my attending. Cervical MRI shows abnormal signal intensity of the upper cervical cord with mild diffuse increased T2 signal with some minimal enhancement with involvement from the cervicomedullary region to around C4/5. This appears to be c/w with a demyelinating condition. There is no severe stenosis or compressive pathology. CSF is easily visualized around the cord throughout. Thoracic spine has mild spondylosis, but with no compressive pathology. Lumbar spine shows some mild to moderate L4-5, L5-S1 spondylosis, but with no compressive pathology. In summary, her MRIs do not suggest a compressive lesion(s) to explain her weakness. No neurosurgical intervention indicated here. Will sign off. Pt does not need any outpatient follow up with us. Please page with any questions or concerns. Thank you for this consultation. Discussed with attending physician, Dr. Dotson. Provider Information Primary Care Physician - JACKIE RODRÍGUEZ (REF) T Attending Physician - ANNE PETERS MD-INT Admitting Physician - ANNE PETERS MD-INT Consulting Physician - BRISEIDA SUE MD-NEU Consulting Physician - MAREK BURRELL MD-NEU Consulting Physician - JANN ACKERMAN MD Consulting Physician - EMANUEL MITCHELL MD-RHE - positive SUHAS--I called MD myself Consulting Physician - MI PRYOR MD-INT Referring Physician - YAHIR, UNKNOWN Problem List/Past Medical History Ongoing At risk for sleep apnea HLD (hyperlipidemia) HTN (hypertension) Historical No qualifying data Procedure/Surgical History 2 bladder slings. Medications Inpatient Biotin 1000mcg tablet, 1 Tab, Oral, Daily Coenzyme Q10, 100 mg= 2 Cap, Oral, Daily Colace, 100 mg= 1 Cap, Oral, BID, PRN Cozaar, 25 mg= 1 Tab, Oral, Daily diphenhydrAMINE, 25 mg= 0.5 mL, IV Push, Daily Fish Oil, 1000 mg= 1 Cap, Oral, Daily hydrALAZINE, 5 mg= 0.25 mL, IV Push, Q4H, PRN immune globulin intravenous, 60 Gram= 600 mL, IV Piggyback, Daily immune globulin intravenous, 5 Gram= 50 mL, IV Piggyback, Daily insulin lispro sliding scale, Scale A:, [...] tablet, extended release, 1 Tab, Oral, Daily SOLU-Medrol, 250 mg= 4 mL, IV Push, Q12H Tylenol, 650 mg= 2 Tab, Oral, Q4H, PRN Tylenol, 650 mg= 2 Tab, Oral, Daily Zofran, 4 mg= 2 mL, IV Push, Q4H, PRN Zoloft, 100 mg= 1 Tab, Oral, Daily Home atorvastatin 10 mg oral tablet, 10 mg= 1 Tab, Oral, At Bedtime AZO Cranberry Gummies oral tablet, chewable, 1 Tab, Oral, Daily biotin 1000 mcg oral tablet, 1000 mcg= 1 Tab, Oral, Daily Claritin 10 mg oral tablet, 10 mg= 1 Tab, Oral, Daily CoQ10, 100 mg, Oral, Daily Fish Oil 500 mg oral capsule, 1000 mg= 2 Cap, Oral, Daily hydroCHLOROthiazide 12.5 mg oral tablet, 12.5 mg= 1 Tab, Oral, Daily losartan 25 mg oral tablet, 25 mg= 1 Tab, Oral, Daily Vitamin D3, 2000 Units, Daily Zoloft 100 mg oral tablet, 100 mg= 1 Tab, Oral, Daily Allergies lisinopril (hives) penicillin (rash) Lab Results Test Name Test Result Date/Time Device Comment 1 Notified MD RBV 02/12/2019 11:21 EST Device Comment 1 Notified Nurse RBV 02/12/2019 05:59 EST Device Comment 1 Notified Nurse RBV 02/11/2019 20:40 EST Device Comment 1 Notified Nurse RBV 02/11/2019 16:30 EST Device Comment 2 Notified Nurse RBV 02/12/2019 11:21 EST Glucose POC2 103 mg/dL 02/12/2019 11:21 EST Glucose POC2 99 mg/dL 02/12/2019 05:59 EST Glucose POC2 150 mg/dL (High) 02/11/2019 20:40 EST Glucose POC2 122 mg/dL (High) 02/11/2019 16:30 EST Urine Type. U Cath 02/11/2019 22:29 EST Urine Color YELLOW2 02/11/2019 22:29 EST Urine Appearance CLOUDY2 (Abnormal) 02/11/2019 22:29 EST Urine Specific Jennings 1.020 02/11/2019 22:29 EST Urine pH Dipstick 6.0 02/11/2019 22:29 EST Urine Leukocyte Esterase NEGATIVE2 02/11/2019 22:29 EST Urine Nitrite NEGATIVE2 02/11/2019 22:29 EST Urine Protein Dipstick NEGATIVE2 02/11/2019 22:29 EST Urine Glucose Dipstick >=1000 (Abnormal) 02/11/2019 22:29 EST Urine Ketones Dipstick NEGATIVE2 02/11/2019 22:29 EST Urine Urobilinogen Dipstick 0.2 02/11/2019 22:29 EST Urine Bilirubin Dipstick NEGATIVE2 02/11/2019 22:29 EST Urine Blood Dipstick NEGATIVE2 02/11/2019 22:29 EST Ur Bacteria 2+ (Abnormal) 02/11/2019 22:29 EST Ur Amorph 2+ (Abnormal) 02/11/2019 22:29 EST Ur Squamous Epithelial Cells 0-2 02/11/2019 22:29 EST documented in this encounter Plan of Treatment Not on file documented as of this encounter Visit Diagnoses Not on filedocumented in this encounter
--- OUTSIDE RECORDS SUMMARY | 2024-09-11 10:46 | XMS_ITS | Encounter Summary ---
Author Organization [employer] Address [address] [place] [address] Care Team Providers Care Bus Person Name Role Phone Unavailable Primary Care Provider Unavailabl e Encounter Details Date Type Department Care Team (Late st Contact Info) Description 02/08/2019 Transcribed Document [facility] [place] Family Medicine [address] [place] [address] ProviderYusuf MD [address] [place], [place] [id number] Social History Tobacco Use Types Packs/Day Years [...] Conversion Note - Historical ProviderMD - 02/08/2019 5:00 PM MANAGER EQUIPMENT Chart Check - Review Order Profile Entered On: 02/08/2019 20:00 EST Performed On: 02/08/2019 17:00 EST by MARK PAZ, RN Chart Check All Active Orders Reviewed : Yes MARK PAZ RN - 02/08/2019 20:00 EST documented in this encounter Plan of Treatment Not on file documented as of this encounter Visit Diagnoses Not on filedocumented in this encounter
--- OUTSIDE RECORDS SUMMARY | 2024-09-11 10:46 | XMS_ITS | Encounter Summary ---
Author Organization [employer] Address [address] [place] [address] Care Team Providers Care Ripsaw Matcher Name Role Phone Unavailable Primary Care Provider Unavailabl e Encounter Details Date Type Department Care Team (Late st Contact Info) Description 02/13/2019 Transcribed Document [facility] [place] [address] [place] [address] ProviderYusuf MD [address] [place] [address] Social History Tobacco Use Types Packs/Day Years [...] Note - Historical ProviderMD - 02/13/2019 5:00 AM TITLE 1 TUTOR Chart Check - Review Order Profile Entered On: 02/13/2019 6:10 EST Performed On: 02/13/2019 5:00 EST by JAYA WASHINGTON REGISITERED_ Chart Check Powerplans Initiated/Discontinued as Appropriate : Yes All Active Orders Reviewed : Yes JAYA WASHINGTON REGISITERED_ - 02/13/2019 6:10 EST Electronically signed by Lillian [facility] Conversion Senior Report Developer Cerner at 07/07/2022 9:56 PM CDT documented in this encounter Plan of Treatment Not on file documented as of this encounter Visit Diagnoses Not on filedocumented in this encounter
--- OUTSIDE RECORDS SUMMARY | 2024-09-11 10:46 | XMS_ITS | Encounter Summary ---
Author Organization [employer] Address [address] [place] [address] Care Team Providers Care Hog Buyer Name Role Phone Unavailable Primary Care Provider Unavailabl e Encounter Details Date Type Department Care Team (Late st Contact Info) Description 02/07/2019 Transcribed Document [facility] [place] [address] [place] [address] ProviderYusuf MD [facility] [place], [place] [id number] Social History Tobacco Use Types Packs/Day Years [...] Note - Historical ProviderMD - 02/07/2019 5:00 AM PAWN SHOP KEEPER Chart Check - Review Order Profile Entered On: 02/07/2019 4:01 EST Performed On: 02/07/2019 5:00 EST by Lesly Colindres RN Chart Check All Active Orders Reviewed : Yes Lesly Colindres RN - 02/07/2019 4:01 EST Electronically signed by Lillian [facility] Conversion Nuisance Wildlife Trapper Cerner at 07/07/2022 10:00 PM CDT documented in this encounter Plan of Treatment Not on file documented as of this encounter Visit Diagnoses Not on filedocumented in this encounter
--- OUTSIDE RECORDS SUMMARY | 2024-09-11 10:46 | XMS_ITS | Encounter Summary ---
Author Organization [employer] Address [address] [place] [address] Care Team Providers Care Abalone Processor Name Role Phone Unavailable Primary Care Provider Unavailabl e Encounter Details Date Type Department Care Team (Late st Contact Info) Description 02/13/2019 Transcribed Document [facility] Radiology [address] [place] [address] Zack Jha MD [address] [place] [address] [address] [place] [id number] Social History Tobacco Use Types Packs/Day Years Used Date Smoking Tobacco: Never Assessed Comments Unknown Sex and Gender Information Value Date Recorded Sex Assigned at Female 09/17/2021 5:37 PM CDT Legal Sex Female 5:37 PM CDT Gender Identity Female 09/17/2021 5:37 PM CDT Sexual Orientation Not on file documented as of this encounter Miscellaneous Notes * Cerner Conversion Note - Zack Jha MD - 02/13/2019 10:35 AM EST Patient: FRANKY DEWITT Age: 74 years Sex: Female : 1945 Associated Diagnoses: None Author: ZACK JHA MD-INT Subjective Primary care physician Dr Bradley CRUZ Date of admission 02/05/[address] Jhoan Sue neurology [facility] Chief complaint bilateral upper and lower extremity [...] I called and d/w Dr Arnold today 02/13/2019 Patient seen and examined today as a first visit by me. Chart reviewed. Discussed with the patient and her at bedside. Consults reviewed by neurology and rheumatology. Patient is awake and sitting in the chair feeling weak in her legs. is at bedside. Afebrile and hemodynamically stable. Discussed with them at length regarding the discharge plan and they are looking for some rehabilitation placement. Past medical history is significant for prior knee surgery on the left side, hypertension, dyslipidemia, and anxiety and depression Family history positive for heart disease Social history lives with her no alcohol no tobacco no drug abuse Usual home medications reviewed please see the list Health Status Allergies: Allergic Reactions (Selected) Severity Not Documented Lisinopril- Hives. Penicillin- Rash. Current medications: (Selected) Inpatient Medications Ordered Biotin [...] mg, Oral, Daily Tylenol: 650 mg, Oral, Daily Tylenol: 650 mg, Oral, Q4H, PRN: Pain (Mild 1-3) Zofran: 4 mg, IV Push, Q4H, PRN: Nausea Zoloft: 100 mg, Oral, Daily diphenhydrAMINE: 25 mg, IV Push, Daily hydrALAZINE: 5 mg, IV Push, Q4H, PRN: Hypertension insulin lispro sliding scale: Scale A:, SubCutaneous, AC and at Bedtime morphine: 2 mg, IV Push, Q2H, PRN: Pain (Severe 7-10) potassium chloride 10 mEq oral tablet, extended release: 1 Tab, Oral, Daily predniSONE: 60 mg, Oral, Daily Documented Medications Documented AZO Cranberry [...] 100 mg = 1 Tab, Oral, Daily Problem list: Active Problems (3) At risk for sleep apnea HLD (hyperlipidemia) HTN (hypertension) Objective VS/Measurements Vitals Signs (last 24 hrs) Last Charted Minimum Maximum Temp 98.1 (FEB 13 05:46) 97.5 (FEB 13 02:00) 98 (FEB 12 18:00) Mon HR 63 (FEB 13 05:46) 63 (FEB 13 05:46) 78 (FEB 12 18:00) Resp Rate 17 (FEB 13 05:46) 16 (FEB 12 16:00) 18 (FEB 12 20:39) SBP H 161 (FEB 13 05:46) 100 (FEB 12 16:00) H 161 (FEB 13 05:46) DBP H 93 (FEB 13 05:46) 62 (FEB 12 16:00) H 93 (FEB 13 05:46) MAP 92 (FEB 13 02:00) 73 (FEB 12 16:00) 107 (FEB 12 22:11) SpO2 96 (FEB 13 05:46) 96 (FEB 12 20:39) 99 (FEB 12 16:00) General: No acute distress. Eye: Normal conjunctiva. HENT: Normocephalic. Neck: Supple, No jugular venous distention. Respiratory: Lungs are clear to auscultation, Respirations are non-labored, Breath sounds are equal. Cardiovascular: Normal rate, Regular rhythm, No gallop, S1+ S2 No S3 or S4 [place].. Gastrointestinal: Soft, Non-tender, Non-distended, Normal bowel sounds. Musculoskeletal: Lower extremity weakness. Integumentary: Warm, Dry, No rash. Neurologic: Alert, Oriented, She has bilateral upper and lower extremity weakness-lower ext more so than upper. Psychiatric: Cooperative, Appropriate mood & affect. Results Review General results Interpretation: No qualifying data available Labs (Last four charted values) WBC H 13.7 (FEB 11) 6.3 (FEB 06) 7.8 (JAN 18) HB 13.7 (JAN 24) 12.6 (FEB 06) 12.8 (NOV 18) HCT 40.1 (JAN 24) 39.0 (FEB 06) 38.8 (NOV 18) Plt 254 (NOV 24) 192 (NOV ) 222 (NOV 18) Na 138 (NOV 24) 139 (NOV ) 140 (NOV 18) K 4.1 (JAN 24) 3.7 (NOV ) 3.6 (NOV 18) Cl 107 (NOV 24) 108 (NOV 19) 108 (NOV 18) CO2 24 (NOV 24) 29 (NOV 19) 28 (NOV 18) BUN H 37 (NOV 24) 18 (NOV 19) H 24 (NOV 18) Cr 0.90 (JAN 24) 0.90 (FEB 06) 1.00 (NOV 18) Glu R H 154 (JAN 24) 88 (NOV 19) 97 (NOV 18) Ca 9.1 (JAN 24) 9.1 (FEB 06) 9.1 (NOV 18) PT 11.0 (FEB 06) INR 1.0 (NOV 19) PTT 25.9 (FEB 06) AST 12 (FEB 11) 14 (FEB 05) ALT 26 (FEB 11) 26 (FEB 05) ALK P 73 (FEB 11) 73 (FEB 05) T Bili 0.4 (FEB 11) 0.3 (FEB 05) PTN 7.4 (FEB 11) 7.7 (FEB 05) ALB 3.4 (FEB 11) 3.8 (FEB 05) No Radiology Results Found Impression and Plan DIAGNOSIS: 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 etiology-s/p MRI and LP , evaluated by neurology and rheumatology. Poor bowel-bladder function control - multifactorial and seems improving. -Pyuria-but doubt UTI - continue to monitor. Asymptomatic. -SUHAS positive-? significance-screen send out-pending -Essential hypertension-marginal BP-orthostatic hypotension -Hyperlipidemia -Recent left knee surgery -Anxiety and depression PLAN BP is on higher side and need medications adjustments as needed. Continue neuro checks, extensive neuro w/u underway, Neurology following. Appreciated rheumatology consult- Steroids and IVIG per neurology recommendations. Follow labs and electrolytes as needed. Physical occupational and speech therapy is ongoing. DC plan: Consult CM for rehabilitation placement. Patient's family is complaint to look for a facility in [place], close to their home. documented in this encounter Plan of Treatment Not on file documented as of this encounter Visit Diagnoses Not on filedocumented in this encounter
--- OUTSIDE RECORDS SUMMARY | 2024-09-11 10:46 | XMS_ITS | Encounter Summary ---
Author Organization [employer] Address [address] [place] [address] Care Team Providers Care Hydroelectric Station Operator Chief Name Role Phone Unavailable Primary Care Provider Unavailabl e Encounter Details Date Type Department Care Team (Late st Contact Info) Description 02/07/2019 Transcribed Document [facility] [place] [address] [place] [address] ProviderYusuf MD [address] [place], [place] [id number] Social History Tobacco Use Types Packs/Day Years [...] Conversion Note - Historical ProviderMD - 02/07/2019 12:08 PM HUMAN RELATIONS PROFESSOR Patient: FRANKY SCOTT Age: 74 Years Sex: Female : 1945 Subjective Patient had LP yesterday and tolerated procedure. She states that she is not having as much pain in her legs but needs assistance with walking. She walked 160 feet in PT yesterday with walker and gait belt. Review of Systems - incontinent of urine. Objective Vitals & Measurements T: 36.6 ??C TMIN: 36.4 ??C TMAX: 36.7 ??C HR: 109(Monitored) RR: 17 BP: 111/71 SpO2: 98% WT: 79.55 kg Physical Exam EOMI Speech - fluent Motor - 5/5 in both legs , 4+/5 in both arms. TESTS CSF Results 4WBC 23 RBC Glucose - 58 Protein - 67 Assessment/Plan Franky Scott is a 74-year-old female, [...] normal except for a mildly elevated protein. The differential for her myelopathy could include [...] this time, I would recommend the followin. To start Lovenox for DVT prevention. 2. SCDs for DVT prevention. 3. Follow up on LP results. 4. Check an RPR. 5. Copper level. 6. SSA and SSB antibodies. 7. Antinuclear antibody. 8. Lyme disease antibodies. 9. An AUSTEN level. 10. If not cause can be found , consideration could be given to sending off MOG antibodies. 11. NMO antibodies. 12. Sed rate and C-reactive protein. 13. HIV antibody. 14. Out of concern of an autoimmune process, I am recommending that we start steroids with Solumedrol 500 mg bid for 3 - 5 days. 15. Pepcid while she is on high dose steroids. 16. Sliding scale insulin while she is on high dose steroids. I have told patient and her that steroids have potential side effects which include but are not limited to ulcers, weight gain, bone damage , hypertension and diabetes. The patient understands and wishes to begin high dose steroids. I have spent over 25 minutes on this case today. Over half that time was spent counseling patient and her . Medications Inpatient Biotin 1000mcg tablet, 1 [...] Scale A:, SubCutaneous, AC and at Bedtime Lipitor, 10 mg= 1 Tab, Oral, Daily LORazepam, 1 mg= 0.5 mL, IV Push, Q4H, PRN MiraLax, 17 Gram= 1 Packet, Oral, Daily, PRN morphine, 2 mg= 1 mL, IV Push, Q2H, PRN Pepcid, 20 mg= 1 Tab, Oral, Daily potassium chloride 10 mEq oral tablet, extended release, 1 Tab, Oral, Daily SOLU-Medrol Tylenol, 650 mg= 2 Tab, Oral, Q4H, PRN Zofran, 4 mg= 2 mL, IV Push, Q4H, PRN Zoloft, 100 mg= 1 Tab, Oral, Daily documented in this encounter Plan of Treatment Not on file documented as of this encounter Visit Diagnoses Not on filedocumented in this encounter
--- OUTSIDE RECORDS SUMMARY | 2024-09-11 10:47 | XMS_ITS | Encounter Summary ---
Author Organization [employer] Address [address] [place] [address] Care Team Providers Care Qa Tester Name Role Phone Unavailable Primary Care Provider Unavailabl e Encounter Details Date Type Department Care Team (Late st Contact Info) Description 02/05/2019 Transcribed Document [facility] [place] Family Medicine [facility] [place] [address] ProviderYusuf MD [facility] [place] [address] Social History Tobacco Use Types Packs/Day Years Used Date Smoking Tobacco: Never Assessed Comments Unknown Sex and Gender Information Value Date Recorded Sex Assigned at Female 09/17/2021 5:37 PM CDT Legal Sex Female 5:37 PM CDT Gender Identity Female 09/17/2021 5:37 PM CDT Sexual Orientation Not on file documented as of this encounter Miscellaneous Notes * Cerner Conversion Note - Historical ProviderMD - 02/05/2019 10:16 AM CONTRACTOR GENER[employer] BUILDING Admission History, Adult Entered On: 02/05/2019 11:36 EST Performed On: 02/05/2019 10:16 EST by SAVANNA VARGAS RN Advance Directive Patient has Advance Directive *Q : Yes, Advance Directive not with the patient Advance Directive Type : Living will Copy Advance Directive Verified/on Chart : No SAVANNA VARGAS RN - 02/05/2019 11:27 EST Anesthesia/Transfusion History Family History of Anesthesia Reaction : No prior transfusion(s) Transfusion History : Prior anesthesia without reaction Family History of Anesthesia Reaction : None SAVANNA VARGAS RN - 02/05/2019 11:27 EST Anticipated Discharge Needs Discharge To, Anticipated : Home SAVANNA VARGAS RN - 02/05/2019 11:27 EST Education Topics, Admission Orientation DCP GENERIC CODE Assessment/Vital Signs : Verbalizes understanding Bed Control : Verbalizes understanding Call Light : Verbalizes understanding Confidentiality : Verbalizes understanding Diet/Room Service : Verbalizes understanding Fall Prevention : Verbalizes understanding Orientation to Room/Bathroom : Verbalizes understanding Telemetry Monitoring : Verbalizes understanding Television/Phone : Verbalizes understanding SAVANNA VARGAS RN - 02/05/2019 11:27 EST Functional Assessment Living Situation : Home Patient Lives With : Spouse Persons Assisting Patient at Home : Spouse Sensory Deficits : Other: glasses Current Home Treatments : None SAVANNA VARGAS RN - 02/05/2019 11:27 EST General Info Arrived From : Direct admit Mode of Arrival on Unit : Wheelchair Patient Arrival Date/Time : 02/05/2019 11:15 EST Legal Guardian : Spouse Contact Password : backtap Want Family/Rep/Phys Notified of Admit : No Emergency Contact #1 : joseluis Emergency Contact #1 Emergency Contact #1 Relationship : spouse Emergency Contact #2 : rakan Emergency Contact #2 Emergency Contact #2 Relationship : son Chief Complaint : weakness in arms and legs since december and has worsen, numbness in feet and uncontrollable bladder and bowel funciton Information Obtained From : Patient, Spouse Primary Language : Yoruba Preferred Communication Mode : Verbal Communication Barrier : None SAVANNA VARGAS RN - 02/05/2019 11:27 EST Fall Risk Scales ABCs Fall Injury Risk Identification : Bones ABC Fall Injury Risk : Moderate to high injury risk Injury Moderate to High Risk Interventions : Patient room close to nurses station, Supervise toileting as indicated, Transport methods appropriate to patient JAY Hx Falls Immediate/Within 3 Months : Yes Jay Secondary Diagnosis : Yes JAY Use of Ambulatory Aid : Bed rest/Nurse assist JAY IV Therapy or IV Access : Yes Jay Gait/Transferring : Weak Jay Mental Status : Oriented to own ability JAY Fall Scale Risk Level : 46 or > High Risk [place] Fall Interventions : Adequate lighting, Assistive devices within reach, Bed in low position, Call device within reach, Fall prevention handout/education per facility policy, Hourly comfort/safety rounds, Non-slip footwear, Personal items within reach, Reinforced to call for assistance before getting out of bed, Room free of clutter/spills, Upper side-rails up, Wheels locked, Wires/Cords secured Fall Moderate to High Risk Interventions : High Risk for Fall sign in place per policy, Patient room close to nurses station, Transport methods appropriate to patient, Toileting schedule SAVANNA VARGAS RN - 02/05/2019 11:27 EST Fall Risk Education Grid Alarms : Verbalizes understanding Bed Height/Stabilization : Verbalizes understanding Call light use : Verbalizes understanding Door Open : Verbalizes understanding Fall Prevention Protocol : Verbalizes understanding Night Light Use : Verbalizes understanding Nonskid Footwear Use : Verbalizes understanding Prevention Responsibility Patient : Verbalizes understanding Transfer/Mobility Techniques : Verbalizes understanding Urinal/Bedpan Availability : Verbalizes understanding Wait for Assistance : Verbalizes understanding SAVANNA VARGAS RN - 02/05/2019 11:27 EST Barriers to Learning : None evident Individuals Taught : Patient Readiness to Learn : Cooperative Teaching Method : Explanation Fall Risk Scale Calc Temp : 0 SAVANNA VARGAS RN - 02/05/2019 11:27 EST Health Histories Smoking Status : Never (less than 100 in lifetime; none in last 30 days) Smokeless Tobacco Status : Never SAVANNA VARGAS RN - 02/05/2019 11:27 EST Social History (As Of: 02/05/2019 11:36:30 EST) Height and Weight, Clinical Dosing Height Source : Measured Height Entry Format : [place] Height, Feet : 5 ft(Converted to: 152 cm, 60 Inch) Height, Inches : 5 Inch(Converted to: 0 ft 5 Inch, 12.70 cm) Clinical Height : 165.1 cm Weight Source : Bed scale Weight Entry Format : Union Clinical Dosing Weight : 79.09 kg Weight, Pounds : 174 lb Body Surface Area (BSA) : 1.87 m2 Body Mass Index : 29 kg/m2 (HI) [place] Body Weight : 57 kg SAVANNA VARGAS RN - 02/05/2019 11:27 EST Infectious Disease History Infectious Disease History : None Active Surveillance Screen Assessment : Patient does not meet any of above criteria Active Surveillance Screen Negative : Yes Fever/Chills Last 48 Hours : No Travel To Regions with Travel Advisories : No Travel Outside [place] Within Last 30 Days : No Contact With Traveler to Advisory Region : No Tuberculosis Symptoms : None SAVANNA VARGAS RN - 02/05/2019 11:27 EST Tetanus Immunization Status Previous Tetanus Immunizations : No qualifying data available. SAVANNA VARGAS RN - 02/05/2019 11:27 EST Influenza Vaccine Asmt, Adult Previous Vaccines from Immunization Schedule : No qualifying data available. Influenza Immunization, Current Season : No Inactivated Flu Vaccine Contraindications : No contraindications to inactivated influenza vaccine Transplant Workup/Recent Transplant : No Order for Influenza Vaccine : Declined Vaccination SAVANNA VARGAS RN - 02/05/2019 11:27 EST Pneumococcal Vaccine Previous Vaccines from Immunization Schedule : No qualifying data available. Pneumonia Immunization Received : No Pneumococcal Risk Assessment < Age 65 : N/A- Patient 65 years of age or older Pneumococcal Vaccine Contraindications : No contraindications to pneumococcal vaccine Transplant Workup/Recent Transplant : No Order for Pneumococcal Vaccine : Declined Vaccination SAVANNA VARGAS RN - 02/05/2019 11:27 EST Order Details Transport Mode Order Detail : Wheelchair Isolation Precautions Order Detail : Standard Precautions Order Detail : N/A IV Order Detail : 1 Oxygen Order Detail : 0 Nurse Collect Order Detail : 0 Lift/Transfer : Minimal Central Line Order Detail : No Room Service : Appropriate Arterial Line : No SAVANNA VARGAS RN - 02/05/2019 11:27 EST Nutrition History Feeding Ability : Independent Eating Poorly Due to Decreased Appetite : No Unplanned Weight Loss in Past 3-6 Months : No Malnutrition Screening Tool Total(mal) : 0 Malnutrition Screening Tool Risk Level : Patient not at risk SAVANNA VARGAS RN - 02/05/2019 11:27 EST [place] Suicide Severity Rating Scale (C-SSRS) CSSRS Past Month Wish to be : No CSSRS Past Month Suicidal Thoughts : No CSSRS Lifetime Suicide Behavior : No Suicide Severity Rating Score : 0 Suicide Severity Rating : No Additional Care Required at this time SAVANNA VARGAS RN - 02/05/2019 11:27 EST Psychosocial History Does Someone Depend on You for Care? : Yes Currently in Unsafe Situation : No SAVANNA VARGAS RN - 02/05/2019 11:27 EST Sleep Apnea Risk Assmt Hx of Obstructive Sleep Apnea Diagnosis : No Snore Loudly : No Tired, Fatigued, or Sleepy During Day : No Observed Stopping Breathing During Sleep : No Have/Are Being Treated for Hypertension : Yes BMI Greater Than 35 kg/m2 : No Age over 50 Years Old : Yes Neck Circumference Greater Than 40 cm : No Gender Male : No STOP-BANG Sleep Apnea Risk Level Score : 2 SAVANNA VARGAS RN - 02/05/2019 11:27 EST Valuables and Belongings Valuables and Belongings : Clothing, Personal devices Clothing : Common streetwear Clothing Disposition : Bedside Personal Device Disposition : Bedside Personal Devices : Glasses SAVANNA VARGAS RN - 02/05/2019 11:27 EST Electronically signed by Lillian, [facility] Conversion Business Intelligence Consultant [employer] at 07/07/2022 9:58 PM CDT documented in this encounter Plan of Treatment Not on file documented as of this encounter Visit Diagnoses Not on filedocumented in this encounter
--- OUTSIDE RECORDS SUMMARY | 2024-09-11 10:47 | XMS_ITS | Encounter Summary ---
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 Evaluation, Physical Therapy Entered On: 02/05/2019 14:38 EST Performed On: 02/05/2019 14:32 EST by SAIMA CURRY PT General Information, PT Visit Type, PT : Initial evaluation Patient Orders : Order Date Order Ordering MD 02/05/2019 10:38 PT Evaluation and Treatment Ordered By: BASHIR RAYMOND MD-INT Active Diagnoses : 02/05/2019 12:00 Disease of spinal cord, unspecified Therapy Diagnosis, PT : Debility Onset of Problem, PT : 02/05/2019 EST Admission Date : 02/05/2019 10:21 Personal Devices : Personal Devices Glasses Assistive Devices : Assistive Devices No Devices Recorded Precautions in Place : Fall prevention measures General Information Comment, PT : Admit Dx: BUE/BLE weakness due to possible myelopathy Hx: HTN, recent L knee arthoscopy SAIMA CURRY, PT - 02/05/2019 14:32 EST General Status Patient Received Status : Supine in bed Treatment Start Time : 02/05/2019 13:53 EST Patient Left Status : Supine in bed, Family/Visitors at bedside, Communication board completed, All needs met and within reach Treatment End Time : 02/05/2019 14:07 EST Treatment Time : 14 Minute(s) CURRYBARBARASAIMA, PT - 02/05/2019 14:32 EST History and Environment Patient Lives With : Spouse Persons Assisting Patient at Home : Spouse Persons Providing Information : Patient Home Equipment Therapy, PT : Walker Walker : Walker, standard Home Setup : One story SAIMA CURRY, PT - 02/05/2019 14:32 EST Prior Level of Function PT GRID Prior LOF Ambulation, Household : Independent Prior LOF Ambulation, Community : Independent Prior LOF Bed Mobility : Independent Prior LOF Toileting : Independent Prior LOF Transfer : Independent SAIMA CURRY, PT - 02/05/2019 14:32 EST Prior LOF Assist with ADL Comment : pt stating normally independent but admits that the last 3wk have been difficult with falls and having to use her standard walker for safety; pt stating at baseline she uses her elliptical and treadmill; pt stating presently receiving outpatient PT for her recent L knee arthoscopy SAIMA CURRY, PT - 02/05/2019 14:32 EST Lower Extremity RLE Active ROM : WFL Right LE Strength : WFL LLE Active ROM : WFL Left LE Strength : WFL SAIMA CURRY, PT - 02/05/2019 14:32 EST Right Lower Extremity MMT Hip Flexion (0-125) : 4/good Hip Abduction (0-45) : 4/good Hip Adduction (0-20) : 4/good Knee Flexion (0-140) : 4/good Knee Extension (0-0) : 4/good Ankle Dorsiflexion (0-20) : 4/good Ankle Plantarflexion (0-45) : 4/good SAIMA CURRY, PT - 02/05/2019 14:32 EST Left Lower Extremity MMT Hip Flexion (0-125) : 4/good Hip Abduction (0-45) : 4/good Hip Adduction (0-20) : 4/good Knee Flexion (0-140) : 4/good Knee Extension (0-0) : 4/good Ankle Dorsiflexion (0-20) : 4/good Ankle Plantarflexion (0-45) : 4/good CURRYSAIMA, PT - 02/05/2019 14:32 EST Lower Extremity Comment : pt reporting Bilat weakness/instability during gait CURRYSAIMA, PT - 02/05/2019 14:32 EST Functional Mobility Mobility Grid Supine to Sit : Supervision/set-up Sit to Stand : Rehab Minimal assistance Stand to Sit : Rehab Minimal assistance Sit to Supine : Supervision/set-up CURRYBARBARASAIMA, PT - 02/05/2019 14:32 EST Sit to Stand Device : Belt, gait, Walker, front wheel Stand to Sit Device : Belt, gait, Walker, front wheel CURRYSAIMA, PT - 02/05/2019 14:32 EST Gait Training/Assessment, PT Gait Assistance Level : Assist, minimal Walking Distance : 80ft with RWx Karl for safety/stability Ambulatory Devices : Gait belt, Walker, front wheel PATRICIO SAIMA, PT - 02/05/2019 14:32 EST Cognition Assessment, PT Orientation : Oriented x 4 Attention Assessment : Present PATRICIO SAIMA, PT - 02/05/2019 14:32 EST Edu Topics Physical Therapy Education Grid Gait Training : Verbalizes understanding, Returns demonstration, Needs reinforcement Transfer Training : Verbalizes understanding, Returns demonstration, Needs reinforcement CURRYBARBARASAIMA, PT - 02/05/2019 14:32 EST Teaching/Learning Assessment Barriers To Learning : None evident CURRYBARBARASAIMA, PT - 02/05/2019 14:32 EST Indication Assesessment, PT Physical Therapy Indicated : Yes PT Problem List : Impaired, endurance tolerance, Impaired, gait, Impaired, strength, Impaired, transfers PATRICIO SAIMA, PT - 02/05/2019 14:32 EST Plan of Care, PT PT Tx Plan/Goals Established w Patient : Yes PT Frequency Rehab : Five days per week PT Duration Rehab : Fourteen days PT Treatments Planned : Gait training, Therapeutic exercises, Transfer training PATRICIO SAIMA, PT - 02/05/2019 14:32 EST Alf Goals Mobility/Bed Mobility LTG PT Grid Goal #1 Goal #2 Activity : Supine to sit Sit to stand Assist : Independent, modified Independent, modified Date to Meet : 02/19/2019 EST 02/19/2019 EST Goal Status : Intial Goal Intial Goal SAIMA CURRY, PT - 02/05/2019 14:32 EST SAIMA CURRY, PT - 02/05/2019 14:32 EST Ambulation LTG Grid Goal #1 Device : Walker, front wheel Distance : 575ft Assist : Independent, modified Date to Meet : 02/19/2019 EST Goal Status : Intial Goal SAIMA CURRY, PT - 02/05/2019 14:32 EST Treatment Note Subjective Comment : pt agreed to PTx eval Patient's Response to Treatment : Stable Assessment : pt with limited endurance and c/o BLE weakness throughout with impaired sensation c/o tingling to Bilat feet; however, pt able to still ambulate ~80ft with RWx Karl for safety/stability Plan for Treatment : cont PTx POC SAIMA CURRY, PT - 02/05/2019 14:32 EST Pain Assessment Pain Scaled Used : 0-10 Pain scale Pain Score Pre-Intervention : 4 Location : Head SAIMA CURRY, PT - 02/05/2019 14:32 EST Image 1 - Images currently included in the form version of this document have not been included in the text rendition version of the form. Anticipated Discharge Needs, OT/PT Anticipated Discharge to : Home, with family care, Outpatient rehabilitation Recommend Continued Therapy at Discharge : Yes SAIMA CURRY, PT - 02/05/2019 14:32 EST [place] [facility] Charges PT Eval Moderate Complexity : 1 SAIMA CURRY, PT - 02/05/2019 14:32 EST documented in this encounter Plan of Treatment Not on file documented as of this encounter Visit Diagnoses Not on filedocumented in this encounter
--- OUTSIDE RECORDS SUMMARY | 2024-09-11 10:47 | XMS_ITS | Encounter Summary ---
Author Organization [employer] Address [address] [place] [address] Care Team Providers Care Manager Of Internal Name Role Phone Unavailable Primary Care Provider Unavailabl e Encounter Details Date Type Department Care Team (Late st Contact Info) Description 02/05/2019 Transcribed Document [facility] [place] [facility] [place] [address] ProviderYusuf MD [address] [place] [id number] Social History Tobacco Use Types Packs/Day Years [...] Conversion Note - Historical ProviderMD - 02/05/2019 6:08 PM AUTOMOTIVE 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 Johan Sue for further evaluation of weakness and an abnormal cranial MRI. I have been asked to evaluate her for weakness. Following history is obtained from speaking to the patient and , who are very good historians. The patient states that for the last year or so, she has been having problems with her left knee. Even before she started having problems with her left knee, she would occasionally have pain in the bottom of her left foot, which she attributed to plantar fasciitis. Sometime in December 2017, because of her plantar fasciitis, she did a stretching exercise where she stretched out on the floor and shortly after that she developed pain in her left knee and she saw several doctors for the pain in her left knee and even received some steroid injections in her left knee, but nothing was working. So earlier this year, she had an MRI scan of her knee which apparently showed a torn meniscus and therefore in November of this year, she underwent arthroscopic knee surgery, which helped to some degree, but she still has left knee pain. From January 05 to , she had to attend a in [facility] where she and her spent a lot of time walking around [facility] and during that walking trip around [facility], when she tried to get her legs into an SUV, she noticed that both of her legs were weak and she was having trouble lifting her legs up to get into the SUV. When she returned back to [place] in late December, she received another steroid shot in her left knee, but then when she went to grocery shopping one day in december, she could not again get into a car because her legs were so weak. Throughout January, the patient began having numbness in her feet and weakness in her legs. Her would sometimes notice a tremor in her hands. Sometime this month, she has also developed incontinence of her bladder and bowels, when she stands up, she will use the restroom and not even realize and so over the last few weeks, she has had to wear depends undergarments. She says her walking has deteriorated to the point where she has to use a walker. She denies any weakness in her hands or arms. She denies any neck pain, headaches, or back pain. She says the weakness and trouble walking actually gets better as the day goes on, but is worse in the morning. Because of these complaints, she even went to an emergency room in [facility] recently and they let her go home after they figured out she did not have a stroke. However, on February 02, the patient underwent an MRI scan of the brain, which did not show any specific pathology of the brain, but note was made of abnormal signal intensity of the upper cervical spine and therefore, the patient was referred to see Dr. Sue today. When Dr. Sue examined the patient and heard the story and saw the MRI, he recommended that she be admitted to the hospital to expedite workup and/or treatment of this problem. CURRENT MEDICATIONS: At home include; 1. A statin that she has been on for the last year or so. 2. Antihypertensives, which she thinks may include losartan and a water pill. 3. Zoloft for depression. ALLERGIES: Lisinopril and penicillin. MEDICATIONS: Medications here in the hospital include; 1. Lipitor. 2. Pepcid. 3. Subcu heparin. 4. Hydrochlorothiazide. 5. Losartan. 6. Biotin. 7. [place]-3. 8. Potassium. 9. Zoloft. 10. Coenzyme Q. PAST MEDICAL HISTORY: 1. No smoking. 2. She rarely drinks alcohol. 3. No illicit drug use. 4. She has had two bladder surgeries. 5. She has had knee surgery as stated above. 6. She has hyperlipidemia and was put on a statin a little over a year ago. 7. Hypertension. 8. 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 She has had numbness in her feet for years. SOCIAL HISTORY: The patient lives in [place] with her . She has three children. 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 She still drives, but over the last few weeks, has had to use a walker to ambulate. FAMILY HISTORY: She has a sister, who apparently had Lyme disease. She has an aunt, who is being treated with steroids for lupus. One of her daughters has arthritis that may even be rheumatoid arthritis. Both of her parents of congestive heart failure. REVIEW OF SYSTEMS: GENERAL: She denies any fevers. EYES: She denies any visual loss. EARS: She denies any hearing loss. CARDIAC: She denies any chest pain. RESPIRATORY: She denies any shortness of breath. GI: If she stands up, she will lose control of her bowels. : If she stands up, she will lose control of her bladder. SKIN: She denies any rashes except the blueness in her toes. MUSCULAR: She denies any muscle aches. NEUROLOGIC: She denies any headaches. PSYCHIATRIC: She is being treated for depression but denies any suicidality. ENDOCRINE: She denies any diabetes or thyroid disease. HEMATOLOGIC: She has never had a blood transfusion and she has never had cancer. PHYSICAL EXAMINATION: GENERAL: She is a well-developed female, in no acute distress, resting comfortably in bed. VITAL SIGNS: Her blood pressure is 126/77, temperature is 97.4, pulse is 70, her heart is regular rate and rhythm. LUNGS: Clear. NECK: Supple without any bruits. NEUROLOGIC: An ophthalmologic exam was done and her pupils reactive to light, but I could not see her disk. Motor exam shows 5/5 strength in both arms, about 4+ out of 5 strength in both legs. Her tone in both arms and legs is normal. She is alert and oriented x3. She has good recent and remote recall. Her attention span and concentration are normal. Language skills are normal. Fund of knowledge is adequate. Cranial nerves II through XII are intact. Coordination shows intact [id number] and [id number]-[id number]. Reflexes are hyperactive throughout at 2 to 3+ with bilaterally upgoing toes. Sensory exam shows intact joint position in both feet. Gait was not tested. LABORATORY DATA: The patient had an MRI scan of her brain done at [facility] on February 02 as being read, showing no acute intracranial findings. However, the radiologist made note of the following in the cervical cord abnormal signal intensity of the upper cervical cord with mild diffuse increased T2 signal with some minimal enhancement with involvement of at least four levels from C1 through C4. This is consistent with a myelopathy. Differential diagnosis would include transverse myelitis, neuromyelitis optica, acute disseminated encephalomyelitis, multiple sclerosis, and vasculitis. Serology showed a sodium of 140, BUN 24, creatinine 1.0. AST is 14, ALT is 26. Vitamin B12 level is 427. White count is 7.8, hematocrit is 38.8, platelet count is 222. Urinalysis shows 2 to 5 white cells. TSH is normal at 0.977. ASSESSMENT: Kelli Scott is a 74-year-old female, who for the last year has been battling left knee pain and even had arthroscopic surgery for torn meniscus. In December, she began having weakness and numbness in her legs that is progressive but intermittent. An MRI of the brain shows the above findings in her cervical spine. I believe, she has a myelopathy of some sort. The differential for her myelopathy could include one or combination of the followin. Demyelinating disease such as multiple sclerosis, acute disseminated encephalomyelitis, or even neuromyelitis optica. 2. Structural disease of her spine, such as an arteriovenous fistula or dural fistula. 3. Infections such as HIV, syphilis, or Lyme disease. 4. An autoimmune process such as lupus or Sjogren syndrome. 5. Nutritional deficiency. 6. Cancer such as carcinomatous meningitis or even a paraneoplastic syndrome. 7. Toxin exposure. 8. Vasculitis. 9. Ischemia such as a spinal cord infarction. 10. Sarcoidosis. 11. Idiopathic transverse myelitis. At this time, I would recommend the followin. To stop the subcu heparin in case she needs a spinal tap. 2. SCDs for DVT prevention. 3. I note that MRIs have been ordered with and without contrast of her entire spine. We will need to follow up on this. 4. Check an RPR. 5. Folate level. 6. Copper level. 7. SSA and SSB antibodies. 8. Antinuclear antibody. 9. Lyme disease antibodies. 10. An [place] level. 11. PT and PTT in case she needs a spinal tap. 12. NMO antibodies. 13. Sed rate and C-reactive protein. 14. I may send off an HIV antibody. 15. If no cause could be found, consideration could be given to an MOG antibody. Further plans and recommendations will depend on her clinical course. Of note, I have spent over 80 minutes on this case today. Over half that time was spent reviewing the chart and counseling the patient and her . I will follow with you. /[id number] MD ROSIO Leone/ERASMO / ROSIO / MODL /[id number] documented in this encounter Plan of Treatment Not on file documented as of this encounter Visit Diagnoses Not on filedocumented in this encounter
--- OUTSIDE RECORDS SUMMARY | 2024-09-11 10:47 | XMS_ITS | Encounter Summary ---
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 On Going Discharge Planning Entered On: 02/08/2019 9:16 EST Performed On: 02/08/2019 9:14 EST by ALECIA GOMEZ RN-Boiler Plant WorkerTelemetry Registered Nurse Progress Note Discharge Arrangements : Patient Post-Acute Information Patient Name: FRANKY SCOTT Gender: Female : [birth year] Age: 74 Years No Post-Acute Placement(s) Listed No Post-Acute Service(s) Listed No [place] Referral(s) Listed Discharge Options Discussed with Patient : Discharge transportation, DME, Home Health, Short term rehabilitation Barriers to Discharge Identified : Clinical Condition of Patient Barriers to Discharge Unresolved : Clinical Condition of Patient ALECIA GOMEZ RN-Boiler Plant Worker - 02/08/2019 9:14 EST Narrative Progress Note Narrative Progress Note : CM reviewed chart. Cm met with pt [...] will continue to follow for d/c needs. Historical Progress Note : CM reviewed chart. RRS 38. Cm to room to met pt. Pt spouse in room. spouse stated that pt is off floor for Xray. Spouse stated that DCP is to discharge home with family. Possible hh if a need. CM will continue to follow for d/c needs. ALECIA GOMEZ RN-Boiler Plant Worker - 02/07/19 09:05:36 ALECIA GOMEZ RN-Boiler Plant Worker - 02/08/2019 9:14 EST Electronically signed by Lillian [facility] Conversion Edi Analyst Cerner at 07/07/2022 9:59 PM CDT documented in this encounter Plan of Treatment Not on file documented as of this encounter Visit Diagnoses Not on filedocumented in this encounter
--- OUTSIDE RECORDS SUMMARY | 2024-09-11 10:47 | XMS_ITS | Encounter Summary ---
Author Organization [employer] Address [address] [place] [address] Care Team Providers Care Endbander Name Role Phone Unavailable Primary Care Provider Unavailabl e Encounter Details Date Type Department Care Team (Late st Contact Info) Description 02/05/2019 Transcribed Document [facility] [place] [address] [place] [address] ProviderYusuf MD [facility] [place] [address] Social History Tobacco Use Types Packs/Day Years [...] Conversion Note - Historical ProviderMD - 02/05/2019 10:39 AM PATTERN DESIGNER Consult Phone Call Documentation Entered On: 02/05/2019 17:41 EST Performed On: 02/05/2019 10:39 EST by SAVANNA VARGAS RN Phone Call for Consults Consult Reason : dr weiss here to see pt SAVANNA VARGAS RN - 02/05/2019 17:41 EST documented in this encounter Plan of Treatment Not on file documented as of this encounter Visit Diagnoses Not on filedocumented in this encounter
--- OUTSIDE RECORDS SUMMARY | 2024-09-11 10:47 | XMS_ITS | Encounter Summary ---
Author Organization [employer] Address [address] [place] [address] Care Team Providers Care Crop Or Livestock Tenant Farmer Name Role Phone Unavailable Primary Care Provider Unavailabl e Encounter Details Date Type Department Care Team (Late st Contact Info) Description 02/05/2019 Transcribed Document [facility] Radiology [address] [place] [address] Anne Peters MD [address] [place] [address] [address] [place] [address] Social History Tobacco Use Types Packs/Day Years [...] Conversion Note - Anne Peters MD - 02/05/2019 11:43 AM EST Patient: FRANKY DEWITT Age: 74 years Sex: Female : 1945 Associated Diagnoses: None Author: ANNE PETERS MD-INT Subjective Primary care physician Dr Bradley CRUZ Date of admission 02/05/[address] Johan Sue [facility] Chief complaint bilateral upper and lower [...] room 317. Her is present with her. Review of Systems Constitutional: Negative Eye: Negative. Ear/Nose/Mouth/Throat: Negative. Respiratory: Negative. Cardiovascular: Negative. Gastrointestinal: Nausea. Genitourinary: Negative. Endocrine: Negative. Musculoskeletal: Negative. Integumentary: Negative Neurologic: above. All other systems are negative Past medical history is significant for prior knee surgery on the left side, hypertension, dyslipidemia, and anxiety and depression Family history positive for heart disease Social history lives with her no alcohol no tobacco no drug abuse Usual home medications reviewed please see the list Health Status Allergies: No active allergies have been recorded., No qualifying data available Current medications: (Selected) Inpatient Medications Ordered Colace: 100 mg, Oral, BID, PRN: Constipation MiraLax: 17 Gram, Oral, Daily, PRN: Constipation Pepcid: 20 mg, Oral, Q12H Tylenol: 650 mg, Oral, Q4H, PRN: Pain (Mild 1-3) Zofran: 4 mg, IV Push, Q4H, PRN: Nausea heparin: 5,000 Units, SubCutaneous, [id number] hydrALAZINE: 5 mg, IV Push, Q4H, PRN: Hypertension morphine: 2 mg, IV Push, Q2H, PRN: Pain (Severe 7-10), No qualifying data available , Medications (8) Active Scheduled: (2) famotidine 20 mg tab 20 mg 1 Tab, Oral, Q12H heparin 5,000 Units, SubCutaneous, [id number] Continuous: (0) PRN: (6) acetaminophen 325 mg tab 650 mg 2 Tab, Oral, Q4H docusate sodium 100 mg cap 100 mg 1 Cap, Oral, BID hydrALAZINE 20 mg/1 mL inj 5 mg 0.25 mL, IV Push, Q4H morphine 2 mg/1 ml inj 2 mg 1 mL, IV Push, Q2H ondansetron 4 mg/2 mL inj 4 mg 2 mL, IV Push, Q4H polyethylene glycol 3350 pwd 17 g pkt 17 Gram 1 Packet, Oral, Daily Problem list: No qualifying data available Objective VS/Measurements No qualifying data available General: No acute distress. Eye: Normal conjunctiva. HENT: Normocephalic. Neck: Supple, No jugular venous distention. Respiratory: Lungs are clear to auscultation, Respirations are non-labored, Breath sounds are equal. Cardiovascular: Normal rate, Regular rhythm, No gallop, S1+ S2 No S3 or S4 [place].. Gastrointestinal: Soft, Non-tender, Non-distended, Normal bowel sounds. Genitourinary: No costovertebral angle tenderness. Lymphatics: No lymphadenopathy neck, axilla, groin. Musculoskeletal: Normal range of motion, Normal strength. Integumentary: Warm, Dry, No rash. Neurologic: Alert, Oriented, She has bilateral upper and lower extremity weakness. Psychiatric: Cooperative, Appropriate mood & affect. Results Review General results Interpretation: No qualifying data available No qualifying data available No Radiology Results Found Impression and Plan Diagnosis -Bilateral upper and lower extremity weakness with abnormal brain imaging-myelopathy -Abnormal signal intensity without enhancement involving cervical and thoracic spine-likely myelopathy -In adequate bladder involving function controlled -Essential hypertension -Hyperlipidemia -Recent left knee surgery -Anxiety and depression Plan Patient is being admitted Neurology consultation, Stat labs Obtain MRI cervical thoracic and lumbar spine Physical occupational and speech therapy consultation will be obtained Plan of care was discussed with the patient and family documented in this encounter Plan of Treatment Not on file documented as of this encounter Visit Diagnoses Not on filedocumented in this encounter
--- OUTSIDE RECORDS SUMMARY | 2024-09-11 10:47 | XMS_ITS | Encounter Summary ---
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
--- OUTSIDE RECORDS SUMMARY | 2024-09-11 10:47 | XMS_ITS | Encounter Summary ---
Author Organization [employer] Address [address] [place] [address] Care Team Providers Care Director Of Primary Care Name Role Phone Unavailable Primary Care Provider Unavailabl e Encounter Details Date Type Department Care Team (Late st Contact Info) Description 02/14/2019 Transcribed Document [facility] [place] [address] [place] [address] ProviderYusuf MD [address] [place] [address] Social History Tobacco Use Types Packs/Day Years Used Date Smoking Tobacco: Never Assessed Comments Unknown Sex and Gender Information Value Date Recorded Sex Assigned at Female 09/17/2021 5:37 PM CDT Legal Sex Female 5:37 PM CDT Gender Identity Female 09/17/2021 5:37 PM CDT Sexual Orientation Not on file documented as of this encounter Miscellaneous Notes * [employer]ner Conversion Note - Historical ProviderMD - 02/14/2019 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
--- OUTSIDE RECORDS SUMMARY | 2024-09-11 10:47 | XMS_ITS | Data Portability ---
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 Follow-up visit. 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 Neurologically she has been stable. 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 Follow-up visit. Impression and plan as detailed below: Not available 08/23/2024 15:24:07 Plan of Treatment Reminders Order Date Submit Date Provider Last Modified By Organization Details Last Modified Time Details Appointments RHEUM RECHECK 2024 10:30A M ADAM MITCHELL MD Not available Not available Not available NEUROLOG Y RECHECK 2025 10:30A M BRISEIDA ADAM MD Not available Not available Not available Lab CBC w/ auto diff [address] (Lab), [address], [place], [address], 06/06/2024 08:01:44 ESR (erythro cyte sediment ation rate), blood [address] (Lab), [address], [place], [address], 06/06/2024 08:01:44 ALT (alanine aminotra nsferase ), serum or plasma [address] (Lab), [address], [place], [address], 06/06/2024 08:01:44 AST/SGOT (asparta te aminotra nsferase ), serum or plasma [address] (Lab), [address], [place], [address], 06/06/2024 08:01:44 creatini ne, serum or plasma [address] (Lab), [address], [place], [address], 06/08/2024 08:17:07 CK (creatin e kinase), total, serum [address] (Lab), [address], [place], [address], 06/06/2024 08:01:44 protein: creatini ne ratio, urine [address] (Lab), [address], [place], [address], 06/06/2024 08:01:44 urinalys is panel, auto 2023 024 [facility], [address], [place], [address], 03/08/2024 12:01:48 culture, urine 2023 024 [facility], [address] [place] [address], [address], 03/09/2024 10:50:04 urinalys is panel, auto 2023 024 [facility], [address], [place], [address], 02/21/2024 11:53:48 culture, urine 2023 024 [facility], [address] [place] [address], [address], 02/22/2024 09:48:38 Referral None recorded . Procedures None recorded . Surgeries None recorded . Imaging None recorded . Medication Orders furosemi de 20 mg tablet [address] [facility], [address], [address], 05/30/2024 11:19:19 potassiu m chloride ER 10 mEq tablet,e xtended release [address] [facility], [address], [address], 05/30/2024 11:19:19 Macrobid 100 mg capsule 2023 024 [facility], [address], [address], 03/08/2024 10:00:17 Bactrim DS 800 mg-160 mg tablet 2023 024 [facility], [address], [address], 02/21/2024 11:54:00 Patient TargetsNo targets recorded. Patient InstructionsNo instructions recorded. Reason for Referral None Reported. Results Created Date Observation Date Name Description Value Unit Range Abnormal Flag Note LastModifiedBy Organization Detail LastModifiedTime 02/02/2002/02/2024 URINE CULTU RE esbl escherichia coli Organi sm: ESBL Escher ichia coli Not Available [facility] [address] [place] [address], [address], 02/04/2024 16:42:01 02/02/20 24 02/04/2024 URINE CULTU RE urine culture abnormal ISOLA TE #1 COLON Y COUNT : 10,00 0 - 100,0 00 CFU/M L Proba ble Gram Negat stan Bacil abdirizak. ID and sensi tivit y in progr ess. See [place] te Resul t(s) Below ESBL Esche bo a coli Not Available [facility] [address] [place] [address], [address], 02/04/2024 16:42:01 02/02/20 24 02/04/2024 URINE CULTU RE amox/K clav'ate(C) <=8/4 ug/mL susceptib le Not Available [facility] [address] [place] [address], [address], 02/04/2024 16:42:01 02/02/20 24 02/04/2024 URINE CULTU RE ampicillin >16 ug/mL resistant Not Available [facility] [address] [place] [address], [address], 02/04/2024 16:42:01 02/02/20 24 02/04/2024 URINE CULTU RE cefazolin >16 ug/mL resistant Not Available [facility] [place], [address], 02/04/2024 16:42:01 02/02/20 24 02/04/2024 URINE CULTU RE cefuroxime >16 ug/mL resistant Not Available [facility] [address] [place] [address], [address], 02/04/2024 16:42:01 02/02/20 24 02/04/2024 URINE CULTU RE ciprofloxaci n >2 ug/mL resistant Not Available [facility] [address] [place] [address], [address], 02/04/2024 16:42:01 02/02/20 24 02/04/2024 URINE CULTU RE gentamicin <=4 ug/mL susceptib le Not Available [facility] [address] [place] [address], [address], 02/04/2024 16:42:01 02/02/20 24 02/04/2024 URINE CULTU RE imipenem <=1 ug/mL susceptib le Not Available [facility] [address] [place] [address], [address], 02/04/2024 16:42:01 02/02/20 24 02/04/2024 URINE CULTU RE levofloxacin >4 ug/mL resistant Not Available [facility] [address] [place] [address], [address], 02/04/2024 16:42:01 02/02/20 24 02/04/2024 URINE CULTU RE nitrofuranto in <=32 ug/mL susceptib le Not Available [facility] [address] [place] [address], [address], 02/04/2024 16:42:01 02/02/20 24 02/04/2024 URINE CULTU RE piperacillin /kari <=16 ug/mL susceptib le Not Available [facility] [address] [place] [address], [address], 02/04/2024 16:42:01 02/02/20 24 02/04/2024 URINE CULTU RE tetracycline >8 ug/mL resistant Not Available [facility] [address] [place], [address], 02/04/2024 16:42:01 02/02/20 24 02/04/2024 URINE CULTU RE tobramycin <=2 ug/mL susceptib le Not Available [facility] [address] [place], [address], 02/04/2024 16:42:01 02/02/20 24 02/04/2024 URINE CULTU RE trimeth/sulf a <=2/38 ug/mL susceptib le Not Available [facility] [address] [place] [address], [address], 02/04/2024 16:42:01 02/02/20 24 02/02/2024 urina lysis panel , auto Unknown Analyte Clean Catch Not Available [facility] [address], [address], 02/02/2024 11:40:47 02/02/20 24 02/02/2024 urina lysis panel , auto Unknown Analyte Yellow Not Available [facility] [address], [address], 02/02/2024 11:40:47 02/02/20 24 02/02/2024 urina lysis panel , auto Unknown Analyte Cloudy Not Available [facility] [address], [address], 02/02/2024 11:40:47 02/02/2002/02/2024 urina lysis panel , auto Unknown Analyte 1.005 Not Available [facility] [place] [address], [address], 02/02/2024 11:40:47 02/02/2002/02/2024 urina lysis panel , auto Unknown Analyte 1.003- 1.035 Not Available [facility] [address], [place], [address], 02/02/2024 11:40:47 02/02/2002/02/2024 urina lysis panel , auto Unknown Analyte 5.0 Not Available [facility] [address], [place], [address], 02/02/2024 11:40:47 02/02/2002/02/2024 urina lysis panel , auto Unknown Analyte 5.0-8. 0 Not Available [facility] [address], [place], [address], 02/02/2024 11:40:47 02/02/2002/02/2024 urina lysis panel , auto Unknown Analyte 500 Mo[address]/ul (++) Not Available [facility] [address], [place], [address], 02/02/2024 11:40:47 02/02/2002/02/2024 urina lysis panel , auto Unknown Analyte Negati ve Not Available [facility] [address], [place], [address], 02/02/2024 11:40:47 02/02/2002/02/2024 urina lysis panel , auto Unknown Analyte Negati ve Not Available [facility] [address], [place], [address], 02/02/2024 11:40:47 02/02/2002/02/2024 urina lysis panel , auto Unknown Analyte Negati ve Not Available [facility] [address], [place], [address], 02/02/2024 11:40:47 02/02/2002/02/2024 urina lysis panel , auto Unknown Analyte Negati ve Not Available [facility] [address], [place], [address], 02/02/2024 11:40:47 02/02/2002/02/2024 urina lysis panel , auto Unknown Analyte Negati ve Not Available [facility] [address], [place], [address], 02/02/2024 11:40:47 02/02/2002/02/2024 urina lysis panel , auto Unknown Analyte Normal Not Available [facility] [address], [place], [address], 02/02/2024 11:40:47 02/02/2002/02/2024 urina lysis panel , auto Unknown Analyte Normal Not Available [facility] [address], [place], [address], 02/02/2024 11:40:47 02/02/2002/02/2024 urina lysis panel , auto Unknown Analyte Negati ve Not Available [facility] [address], [place], [address], 02/02/2024 11:40:47 02/02/2002/02/2024 urina lysis panel , auto Unknown Analyte Negati ve Not Available [facility] [address], [place], [address], 02/02/2024 11:40:47 02/02/2002/02/2024 urina lysis panel , auto Unknown Analyte Normal Not Available [facility] [address], [place], [address], 02/02/2024 11:40:47 02/02/2002/02/2024 urina lysis panel , auto Unknown Analyte Normal 1 mg/dl Not Available [facility] [address], [place], [address], 02/02/2024 11:40:47 02/02/2002/02/2024 urina lysis panel , auto Unknown Analyte Negati ve Not Available [facility] [address], [place], [address], 02/02/2024 11:40:47 02/02/2002/02/2024 urina lysis panel , auto Unknown Analyte Negati ve Not Available [facility] [address], [place], [address], 02/02/2024 11:40:47 02/02/2002/02/2024 urina lysis panel , auto Unknown Analyte Trace Not Available [facility] [address], [place], [address], 02/02/2024 11:40:47 02/02/20 24 02/02/2024 urina lysis panel , auto Unknown Analyte Negati ve Not Available [facility] [address], [place], [address], 02/02/2024 11:40:47 02/21/20 24 02/23/2024 URINE CULTU RE urine culture No growth day 2. Not Available [facility] [address] [place] [address], [place], [address], 02/23/2024 11:07:27 02/21/2002/21/2024 urina lysis panel , auto Unknown Analyte Clean Catch Not Available [facility] [address], [place], [address], 02/21/2024 11:46:03 02/21/20 24 02/21/2024 urina lysis panel , auto Unknown Analyte Yellow Not Available [facility] [address], [place], [address], 02/21/2024 11:46:03 02/21/20 24 02/21/2024 urina lysis panel , auto Unknown Analyte Cloudy Not Available [facility] [address], [place], [address], 02/21/2024 11:46:03 02/21/20 24 02/21/2024 urina lysis panel , auto Unknown Analyte 1.005 Not Available [facility] [address], [place], [address], 02/21/2024 11:46:03 02/21/20 24 02/21/2024 urina lysis panel , auto Unknown Analyte 1.003- 1.035 Not Available [facility] [address], [place], [address], 02/21/2024 11:46:03 02/21/20 24 02/21/2024 urina lysis panel , auto Unknown Analyte 6.0 Not Available [facility] [address], [place], [address], 02/21/2024 11:46:03 02/21/20 24 02/21/2024 urina lysis panel , auto Unknown Analyte 5.0-8. 0 Not Available [facility] [address], [place], [address], 02/21/2024 11:46:03 02/21/20 24 02/21/2024 urina lysis panel , auto Unknown Analyte 500 Moose/ul (++) Not Available [facility] [address], [place], [address], 02/21/2024 11:46:03 02/21/20 24 02/21/2024 urina lysis panel , auto Unknown Analyte Negati ve Not Available [facility] [address], [place], [address], 02/21/2024 11:46:03 02/21/20 24 02/21/2024 urina lysis panel , auto Unknown Analyte Negati ve Not Available [facility] [address], [place], [address], 02/21/2024 11:46:03 02/21/20 24 02/21/2024 urina lysis panel , auto Unknown Analyte Negati ve Not Available [facility] [address], [place], [address], 02/21/2024 11:46:03 02/21/20 24 02/21/2024 urina lysis panel , auto Unknown Analyte Trace Not Available [facility] [address], [place], [address], 02/21/2024 11:46:03 02/21/2002/21/2024 urina lysis panel , auto Unknown Analyte Negati ve Not Available [facility] [address], [place], [address], 02/21/2024 11:46:03 02/21/20 24 02/21/2024 urina lysis panel , auto Unknown Analyte Normal Not Available [facility] [address], [place], [address], 02/21/2024 11:46:03 02/21/20 24 02/21/2024 urina lysis panel , auto Unknown Analyte Normal Not Available [facility] [address], [place], [address], 02/21/2024 11:46:03 02/21/20 24 02/21/2024 urina lysis panel , auto Unknown Analyte Negati ve Not Available [facility] [address], [place], [address], 02/21/2024 11:46:03 02/21/20 24 02/21/2024 urina lysis panel , auto Unknown Analyte Negati ve Not Available [facility] [address], [place], [address], 02/21/2024 11:46:03 02/21/20 24 02/21/2024 urina lysis panel , auto Unknown Analyte Normal Not Available [facility] [address], [place], [address], 02/21/2024 11:46:03 02/21/20 24 02/21/2024 urina lysis panel , auto Unknown Analyte Normal 1 mg/dl Not Available [facility] [address], [place], [address], 02/21/2024 11:46:03 02/21/20 24 02/21/2024 urina lysis panel , auto Unknown Analyte Negati ve Not Available [facility] [address], [place], [address], 02/21/2024 11:46:03 02/21/20 24 02/21/2024 urina lysis panel , auto Unknown Analyte Negati ve Not Available [facility] [address], [place], [address], 02/21/2024 11:46:03 02/21/20 24 02/21/2024 urina lysis panel , auto Unknown Analyte Negati ve Not Available [facility] [address], [place], [address], 02/21/2024 11:46:03 02/21/20 24 02/21/2024 urina lysis panel , auto Unknown Analyte Negati ve Not Available [facility] [address], [place], [address], 02/21/2024 11:46:03 03/08/20 24 03/08/2024 URINE CULTU RE extended spectrum beta-lactama se producing klebsiella pneumoniae Organi sm: Extend ed spectr um beta-l actama se produc ing Klebsi yuriy pneumo niae Not Available [facility] [address] [place], [address], 03/10/2024 09:37:13 03/08/20 24 03/10/2024 URINE CULTU RE urine culture abnormal ISOLA TE #1 COLON Y COUNT : > 100,0 00 CFU/M L Proba ble Gram Negat stan Bacil abdirizak. ID and sensi tivit y in progr ess. See [place] te Resul t(s) Below Exten ded spect rum beta- lacta yani produ cing Klebs iella pneum oniae Not Available [facility] [address] [place] [address], [address], 03/10/2024 09:37:13 03/08/20 24 03/10/2024 URINE CULTU RE amox/K clav'ate(C) <=8/4 ug/mL susceptib le Not Available [facility] [address] [place], [address], 03/10/2024 09:37:13 03/08/20 24 03/10/2024 URINE CULTU RE ampicillin >16 ug/mL resistant Not Available [facility] [address] [place], [address], 03/10/2024 09:37:13 03/08/20 24 03/10/2024 URINE CULTU RE cefazolin >16 ug/mL resistant Not Available [facility] [address] [place], [address], 03/10/2024 09:37:13 03/08/20 24 03/10/2024 URINE CULTU RE cefuroxime >16 ug/mL resistant Not Available [facility] [address] [place] [address], [address], 03/10/2024 09:37:13 03/08/20 24 03/10/2024 URINE CULTU RE ciprofloxaci n 0.5 ug/mL intermedi ate Not Available [facility] [address] [place] [address], [address], 03/10/2024 09:37:13 03/08/20 24 03/10/2024 URINE CULTU RE gentamicin <=4 ug/mL susceptib le Not Available [facility] [address] [place] [address], [address], 03/10/2024 09:37:13 03/08/20 24 03/10/2024 URINE CULTU RE imipenem <=1 ug/mL susceptib le Not Available [facility] [address] [place] [address], [address], 03/10/2024 09:37:13 03/08/20 24 03/10/2024 URINE CULTU RE levofloxacin <=0.5 ug/mL susceptib le Not Available [facility] [address] [place] [address], [address], 03/10/2024 09:37:13 03/08/20 24 03/10/2024 URINE CULTU RE nitrofuranto in >64 ug/mL resistant Not Available [facility] [address] [place] [address], [address], 03/10/2024 09:37:13 03/08/20 24 03/10/2024 URINE CULTU RE piperacillin /kari <=16 ug/mL susceptib le Not Available [facility] [address] [place] [address], [address], 03/10/2024 09:37:13 03/08/20 24 03/10/2024 URINE CULTU RE tetracycline >8 ug/mL resistant Not Available [facility] [address] [place], [address], 03/10/2024 09:37:13 03/08/20 24 03/10/2024 URINE CULTU RE tobramycin <=2 ug/mL susceptib le Not Available [facility] [address] [place], [address], 03/10/2024 09:37:13 03/08/20 24 03/10/2024 URINE CULTU RE trimeth/sulf a >2/38 ug/mL resistant Not Available [facility] [address] [place], [address], 03/10/2024 09:37:13 03/08/20 24 03/08/2024 urina lysis panel , auto Unknown Analyte Clean Catch Not Available [facility] [address], [address], 03/08/2024 09:32:30 03/08/20 24 03/08/2024 urina lysis panel , auto Unknown Analyte Yellow Not Available [facility] [address], [place], [address], 03/08/2024 09:32:30 03/08/20 24 03/08/2024 urina lysis panel , auto Unknown Analyte Cloudy Not Available [facility] [address], [address], 03/08/2024 09:32:30 03/08/20 24 03/08/2024 urina lysis panel , auto Unknown Analyte 1.000 Not Available [facility] [address], [address], 03/08/2024 09:32:30 03/08/20 24 03/08/2024 urina lysis panel , auto Unknown Analyte 1.003- 1.035 Not Available [facility] [address], [place], [address], 03/08/2024 09:32:30 03/08/20 24 03/08/2024 urina lysis panel , auto Unknown Analyte 6.0 Not Available [facility] [address], [place], [address], 03/08/2024 09:32:30 03/08/20 24 03/08/2024 urina lysis panel , auto Unknown Analyte 5.0-8. 0 Not Available [facility] [address], [place], [address], 03/08/2024 09:32:30 03/08/20 24 03/08/2024 urina lysis panel , auto Unknown Analyte 500 Moose/ul (++) Not Available [facility] [address], [place], [address], 03/08/2024 09:32:30 03/08/20 24 03/08/2024 urina lysis panel , auto Unknown Analyte Negati ve Not Available [facility] [address], [place], [address], 03/08/2024 09:32:30 03/08/20 24 03/08/2024 urina lysis panel , auto Unknown Analyte POSITI VE (Abnor mal) Not Available [facility] [address], [place], [address], 03/08/2024 09:32:30 03/08/20 24 03/08/2024 urina lysis panel , auto Unknown Analyte Negati ve Not Available [facility] [address], [place], [address], 03/08/2024 09:32:30 03/08/20 24 03/08/2024 urina lysis panel , auto Unknown Analyte 30 mg/dl (+) Not Available [facility] [address], [place], [address], 03/08/2024 09:32:30 03/08/20 24 03/08/2024 urina lysis panel , auto Unknown Analyte Negati ve Not Available [facility] [address], [place], [address], 03/08/2024 09:32:30 03/08/20 24 03/08/2024 urina lysis panel , auto Unknown Analyte Normal Not Available [facility] [address], [place], [address], 03/08/2024 09:32:30 03/08/20 24 03/08/2024 urina lysis panel , auto Unknown Analyte Normal Not Available [facility] [address], [place], [address], 03/08/2024 09:32:30 03/08/20 24 03/08/2024 urina lysis panel , auto Unknown Analyte Negati ve Not Available [facility] [address], [place], [address], 03/08/2024 09:32:30 03/08/20 24 03/08/2024 urina lysis panel , auto Unknown Analyte Negati ve Not Available [facility] [address], [place], [address], 03/08/2024 09:32:30 03/08/20 24 03/08/2024 urina lysis panel , auto Unknown Analyte 1 mg/dl Not Available [facility] [address], [place], [address], 03/08/2024 09:32:30 03/08/20 24 03/08/2024 urina lysis panel , auto Unknown Analyte Normal 1 mg/dl Not Available [facility] [address], [place], [address], 03/08/2024 09:32:30 03/08/20 24 03/08/2024 urina lysis panel , auto Unknown Analyte 1 mg/dl (+) Not Available [facility] [address], [place], [address], 03/08/2024 09:32:30 03/08/20 24 03/08/2024 urina lysis panel , auto Unknown Analyte Negati ve Not Available [facility] [address], [place], [address], 03/08/2024 09:32:30 03/08/20 24 03/08/2024 urina lysis panel , auto Unknown Analyte 50 José Antonio/ul Not Available [facility] [address], [place], [address], 03/08/2024 09:32:30 03/08/20 24 03/08/2024 urina lysis panel , auto Unknown Analyte Negati ve Not Available [facility] [address], [place], [address], 03/08/2024 09:32:30 Result Notes None recorded. Problems No Known Problems Procedures Surgical History Date Name Laterality Status Provider Name and Address Organization Details Recorded Time 024 Injection Joint/Bursa, Major, w/o US completed ADAM MITCHELL MD [address] [place] [address], [phone], [facility] 01/05/2024 12:43:16 024 EKG completed NATHAN AMATO MD [address] [place] [address], [phone], [facility] 05/26/2023 13:57:01 023 PNE Implantation; Sacral Nerve completed YUKI LOCKWOOD MD [address] [place] [address], [address], [facility] 09/09/2022 17:41:58 021 Electromyography (EMG) with Nerve Conduction Study (NCV) completed Mignon Shukla (Nicky) [facility] 06/30/2020 12:26:30 020 PTNM; single treatment completed Vonnie [facility] 01/23/2020 11:06:00 020 PTNM; single treatment completed Vonnie Charles [facility] 01/17/2020 13:46:10 020 PTNM; single treatment completed Deisy Cullen [facility] 01/10/2020 13:29:52 020 PTNM; single treatment completed Domi Graham [facility] 01/02/2020 14:29:18 020 PTNM; single treatment completed Domi Graham [facility] 12/26/2019 13:31:28 020 PTNM; single treatment completed Domi Graham [facility] 12/19/2019 13:26:14 020 PTNM; single treatment completed Domi Graham [facility] 12/13/2019 13:51:54 020 [facility]NM; [facility] 14:03:25 020 PTNM; single treatment completed Adela Valentin [facility] 11/28/2019 15:47:10 020 PTNM; [facility] 14:07:01 020 PTNM; [facility]14[facility] 15:11:05 020 PTNM; single treatment completed Shaan Holloway [facility] 11/07/2019 14:04:30 020 Urodynamics Interpretation completed CANDY CHAVIRA MD [address] [place] [address], [phone] 06/01/2019 14:09:09 020 Urodynamics completed Vonnie Charles [facility] 06/01/2019 11:52:12 020 Post Void Residual; Catheter completed Chanda Bailey [facility] 05/21/2019 14:52:47 020 repair of fistula of cervix completed Vickie Medina [facility] 12/09/2022 13:17:55 014 repair of stress incontinence by suprapubic sling completed Una Martínez [facility] 02/05/2019 08:25:02 010 repair of stress incontinence by suprapubic sling completed Una Martínez [facility] 02/05/2019 08:25:00 Imaging Results None recorded. Procedure Notes None recorded. Medical Equipment None Reported. Allergies Allergen ID Allergen Name Allergen Category Reaction Reaction Severity Criticality Documentation Date Start Date Code Code System Note Provider Name and Address Organization Details Recorded Time 838131 Product containin g penicilli n (product) medicatio n Not available Not available Not available 05/21/2019 95086 8004 SNOMED Chanda Bailey [facility] 0 14:08:26 089447 lisinopri l medicatio n Not available Not available Not available 05/21/2019 88263 RxNorm Chanda Bailey [facility] 0 14:08:31 974421 tramadol medicatio n rash Not available Not available 08/14/2019 27109 RxNorm swoll en eyes Olena Hays [facility] 0 09:18:52 Medications Name Sig Start Date Stop Date Status Note LastModified by Organization Details LastModified Time gentamicin 60mg xylitol capsule [35979] MIX THE CONTENTS OF 1 CAPSULE WITH DILUENT. APPLY TO AFFECTED AREAS. PERFORM TWICE DAILY. active Not Available Not Available No t Available clindamycin /mupirocin/ itraconazol e 150/20/50mg topical capsule [68410] MIX THE CONTENTS OF 1 CAPSULE WITH DILUENT. APPLY TO AFFECTED AREAS. PERFORM TWICE DAILY. active Not Available Not Available No t Available spray kit 5ml USE FIVE ML FOR [...] Take 1 tablet by mouth once daily 2024 active Not [...] blood by Pulse oximetry Heart rate Systolic blood pressure Diastolic blood pressure Provider Name and Address Organization Details Last Updated DateTime 5 165.1 cm 16 /min 33.3 kg/m2 63189.4 7 g 95 % 95 % 82 /min 128 mm[Hg] 78 mm[Hg] [facility] 5 10:53:27 Date Recorded Body height Body mass index (BMI) Body weight Oxygen saturation Oxygen saturation in Arterial blood by Pulse oximetry Heart rate Systolic blood pressure Diastolic blood pressure Provider Name and Address Organization Details Last Updated DateTime 5 165.1 cm 33.3 kg/m2 77424.4 7 g 94 % 94 % 99 /min 136 mm[Hg] 88 mm[Hg] e[facility]gan [facility] 5 10:20:13 Date Recorded Body height Respiratory rate Body mass index (BMI) Body weight Oxygen saturation Oxygen saturation in Arterial blood by Pulse oximetry Heart rate Systolic blood pressure Diastolic blood pressure Provider Name and Address Organization Details Last Updated DateTime 5 165.1 cm 16 /min 35.1 kg/m2 60379.9 9 g 94 % 94 % 78 /min 128 mm[Hg] 68 mm[Hg] [facility] 5 15:33:40 Date Recorded Body height Body mass index (BMI) Body weight Provider Name and Address Organization Details Last Updated DateTime 02/21/2024 165.1 cm 33.3 kg/m2 83138.47 g Lilian Crowder [facility] 02/21/2024 11:39:08 Date Recorded Body height Body mass index (BMI) Body weight Provider Name and Address Organization Details Last Updated DateTime 03/08/2024 165.1 cm 33.3 kg/m2 84646.47 g Marilee Green [facility] 03/08/2024 09:27:27 Social History Question Answer Notes LastModified by Organizat ion Details LastModified Time Tobacco Smoking Status Former Smoker Una Martínez [facility] 02/05/2019 08:24:36 How Much Tobacco Do You Chew? None [email or web address] Information not available 05/21/2019 Live Alone Or With Others? With Others Information not available 02/05/2019 Marital Status [email or web address] Informat ion not available 02/05/2019 What Was The Date Of Your Most Recent Tobacco Screening? 08/23/2024 [email or web address] Information not available 08/23/2024 What Is Your Relationship Status? [email or web address] Information not available 07/09/2021 How Much Tobacco Do You Smoke? No [email or web address] Information not available 05/21/2019 Has Tobacco Cessation Counseling Been Provided? No [email or web address] Information not available 07/09/2021 Sex: Female Functional Status Question Answer Note LastModified by Organizat ion Details LastModified Time Do you use any illicit or recreational drugs? No Information not available 07/09/2021 Do you or have you ever used any other forms of tobacco or nicotine? No [email or web address] Information not available 07/09/2021 What is your level of alcohol consumption? Occasional [email or web address] Information not available 08/21/2021 Are you currently employed? No [email or web address] Information not available 06/30/2023 What is your occupation? Retired Information not available 02/05/2019 Mental Status None recorded. Family History Relationship Description Onset Age of this Age Resolved Age Notes LastModified by Organization Details LastModified Time Father Heart disease [email or web address] Not available 08:23:42 Mother Hypertensive disorder [email or web address] Not available 08:23:47 Mother Cerebrovascu lar accident [email or web address] Not available 02/05/2019 08:23:52 Medical History Condition Response Anxiety Disorder Y Arthritis Y Hypertension Y Neurological Problems Y High Cholesterol Y Gynecological HistoryNo gynecological history recorded. Obstetrics History GPAL:G 0 P 0 0 0 0 Immunizations Vaccine Type Date Status Note Provider Nam e and Address Organization Details Recorded Time Influenza, split virus, quadrivalent, preservative 1 completed [facility] 07/09[facility]20[facility] 11:27:58 COVID-19, mRNA, LNP-S, PF, 30 mcg/0.3 mL dose 1 completed [facility] 07/09/2021 11:28:39 COVID-19, mRNA, LNP-S, PF, 30 mcg/0.3 mL dose 1 completed Frida Matt [facility] 07/09/2021 11:29:03 COVID-19, mRNA, LNP-S, PF, 30 mcg/0.3 mL dose 1 completed [facility] 07/09/2021 11:29:09 Past Encounters Encounter ID Performer Location Encounter Start Date Encounter Closed Date Diagnosis/Indication Diagnosis SNOMED-CT Code Diagnosis ICD10 Code Diagnosis Note [id number] BRISEIDA ADAM MD NEUROLOGY [facility] CLOSED [address] [place] [address] 02/05/2019 07:54:19 02/05/2019 10:03:46 Cervical myelopathy 367194549 G95.9 [id number] BRISEIDA ADAM MD NEUROLOGY [facility] CLOSED [address] [place] [address] 03/06/2019 15:27:54 03/06/2019 16:49:16 Cervical myelopathy 354816389 G95.9 [id number] BRISEIDA ADAM MD NEUROLOGY [facility] CLOSED [address] [place] [address] 03/22/2019 14:16:03 03/22/2019 15:29:20 Cervical myelopathy 836684502 G95.9 Urinary incontinence 165 835691 R32 [id number] BRISEIDA ADAM MD NEUROLOGY [facility] CLOSED [address] [place] [id number] 05/02/2019 13:48:41 05/02/2019 14:46:26 Spinal cord disease 72747200 G95.9 [id number] CANDY CHAVIRA MD [facility] [address] [place] [address] 05/21/2019 13:55:21 05/21/2019 15:14:21 Urinary tract infectious disease 30722133 N39.0 Neurogenic dysfunction of urinary bladder 430732592 N31.9 we discussed potential further evaluation . Katt tang her complex recent history suggest we start with urodynamic s. We will also await urine culture prior to starting any antibiotic therapy. Her residual today was significan t but asymptomat ic and we will postpone starting intermitte nt catheteriz ation for now. [id number] CANDY CHAVIRA MD [facility] [address] [place] [address] 06/01/2019 08:52:28 06/01/2019 09:15:42 Retention of urine 038347926 R33.9 Mixed urin micaela incontinence 546713516 N39.46 [id number] CANDY CHAVIRA MD [facility] [address] [place] [address] 06/01/2019 10:05:07 06/01/2019 10:35:13 Mixed urinary incontinence 285550605 N39.46 Retention of urine 21067 4002 R33.9 follow-up 2 weeks [id number] BRISEIDA ADAM MD NEUROLOGY [facility] CLOSED [address] [place] [address] 07/12/2019 09:55:18 07/12/2019 10:38:01 Cervical myelopathy 209706064 G95.9 [id number] CANDY CHAVIRA MD [facility] [address] [place] [address] 07/16/2019 13:43:53 07/16/2019 14:40:05 Urinary tract infectious disease 44503927 N39.0 as above follow-up 3 weeks Chronic re tention of urine 682178559 R33.8 she will discontinu e the bethanecho l and start intermitte nt self-mirna terization 3 times per day Urge incon tinence of urine 53169271 N39.41 observe [id number] [facility] [address] [place] [address] 08/06/2019 13:42:51 08/06/2019 14:52:32 Neuropathic pain 966548895 M79.2 Spinal cord disease 4852 2003 G95.9 [id number] CANDY CHAVIRA MD [facility] [address] [place] [address] 08/06/2019 14:58:58 08/06/2019 15:38:19 Neurogenic dysfunction of urinary bladder 262231652 N31.9 [id number] BRISEIDA ADAM MD NEUROLOGY [facility] CLOSED [address] [place] [address] 09/10/2019 12:52:19 09/10/2019 14:04:37 Spinal cord disease 79846345 G95.9 [id number] CANDY CHAVIRA MD [facility] [address] [place] [address] 11/07/2019 13:32:51 11/07/2019 14:37:14 Urge incontinence of urine 55568735 N39.41 observe [id number] CANDY CHAVIRA MD CUA [facility] [address] [place] [address] 11/14/2019 14:40:33 11/14/2019 16:50:17 Urge incontinence of urine 38591536 N39.41 observe [id number] CANDY CHAVIRA MD YUVAL [facility] [address] [place] [address] 11/21/2019 13:42:17 11/21/2019 14:24:44 Urge incontinence of urine 16821732 N39.41 observe [id number] JAVON CONNOLLY MD CUA [facility] [address] [address] 0 11/28/2019 15:11:02 11/28/2019 15:30:21 Urge incontinence of urine 66002577 N39.41 [id number] CANDY CHAVIRA MD YUVAL [facility] [address],[place] [address] 0 12/05/2019 13:14:40 12/05/2019 14:39:23 Urge incontinence of urine 50164446 N39.41 observe Urinary tr act infectious disease 43157140 N39.0 as above follow-up 3 weeks [id number] YUKI LOCKWOOD MD CUA [facility] [address] [place] [address] RD,[place] [address] 0 12/13/2019 13:30:42 12/13/2019 13:59:58 Urge incontinence of urine 67450236 N39.41 [id number] CANDY CHAVIRA MD YUVAL [facility] [address] [address] 0 12/19/2019 13:03:23 12/19/2019 13:41:46 Urge incontinence of urine 69828545 N39.41 observe [id number] YUKI LOCKWOOD MD CUA [facility] [address] [place] [address] RD,[place] [address] 0 12/26/2019 13:03:48 12/26/2019 14:07:08 Urge incontinence of urine 57914767 N39.41 [id number] JAVON CONNOLLY MD CUA [facility] [address], [address],[place] [address] 0 01/02/2020 14:06:01 01/04/2020 16:36:14 Urinary tract infectious disease 88771233 N39.0 Urge incon tinence of urine 73940016 N39.41 [id number] RIP ANNE JR, MD YUVAL [facility] [address] [place] [address] 01/10/2020 13:05:44 01/10/2020 15:06:59 Urge incontinence of urine 72229903 N39.41 [id number] YUKI LOCKWOOD MD [facility] [address] [place] [address] 01/17/2020 13:28:48 01/17/2020 16:01:44 Urge incontinence of urine 14202254 N39.41 [id number] YUKI LOCKWOOD MD [facility] [address] [place] [address] 01/23/2020 10:26:54 01/23/2020 11:42:15 Urge incontinence of urine 78446477 N39.41 [id number] CANDY CHAVIRA MD [facility] [address] [place] [address] 01/30/2020 13:46:03 01/30/2020 14:33:04 Neurogenic dysfunction of urinary bladder 573718394 N31.9 plan as above follow-up 3 months if lucreciain kitty mojica. We have seen a new prescripti on for 4 times a day catheteriz ation supplies [id number] BRISEIDA ADAM MD NEUROLOGY [facility] CLOSED [address] [place] [address] 03/04/2020 13:06:11 03/04/2020 13:40:51 Spinal cord disease 59999941 G95.9 [id number] BRISEIDA ADAM MD NEUROLOGY [facility] [address] [place] [address] 06/05/2020 14:05:57 06/05/2020 16:57:53 Spinal cord disease 26891902 G95.9 [id number] CANDY CHAVIRA MD [facility] [address] [place] [address] 06/11/2020 13:56:01 06/11/2020 14:50:14 Chronic infective cystitis 735591814 N30.20 Continue Bactrim daily at bedtime Urge incon tinence of urine 40285886 N39.41 observe [id number] BRISEIDA ADAM MD NEUROLOGY [facility] [address] [place] [address] 1 06/30/2020 10:34:18 06/30/2020 12:32:06 Skin sensation disturbance 73445279 R20.9 Pain in bi lateral lower legs 9045927655 0857310 M79.661 M79.929 [id number] BRISEIDA ADAM MD NEUROLOGY [facility] [address] [place] [address] 1 09/02/2020 13:32:13 09/02/2020 14:20:44 Muscle pain 73997802 M79.10 Spinal cord disease 4852 2002 G95.9 [id number] CANDY CHAVIRA MD CUA [facility] [address] [address] 0 12/12/2020 10:13:18 12/12/2020 11:23:17 Neurogenic dysfunction of urinary bladder 185141211 N31.9 she is a less incontinen ce after starting to catheteriz e 5 times per day. She will continue with oxybutynin chloride extended release 10 mg per day Chronic in fective cystitis 169837291 N30.20 she has had recent breakthrou gh infections on Bactrim suppressio n and we will try doxycyclin e daily at bedtime [id number] BRISEIDA ADAM MD NEUROLOGY CLOSED [address] [place] [address] 1 03/03/2021 14:11:05 03/03/2021 15:09:26 Spinal cord disease 53198844 G95.9 [id number] CANDY CHAVIRA MD CUA [facility] [address],[place] [address] 0 06/12/2021 10:59:34 06/12/2021 11:59:42 Neurogenic dysfunction of urinary bladder 920336194 N31.9 she is a less incontinen ce after starting to catheteriz e 5 times per day. She will continue with oxybutynin chloride extended release 10 mg per day Chronic in fective cystitis 897630726 N30.20 Continue doxycyclin e Daily at bedtime [id number] BRISEIDA ADAM MD NEUROLOGY [facility] CLOSED [address] [place] [address] 07/09/2021 11:15:13 07/09/2021 13:02:59 Spinal cord disease 74048725 G95.9 [id number] BRISEIDA ADAM MD NEUROLOGY [facility] [address] [place] [address] 1 08/21/2021 10:54:34 08/24/2021 16:33:15 Spinal cord disease 25283663 G95.9 Pain of mu ltiple joints 32791981 M25.50 [id number] IMAN DANIELS MD RHEUMATOL OGY [facility] [address] [place] [address] 1 09/16/2021 09:20:33 09/16/2021 10:08:55 Pain of multiple joints 66302191 M25.50 [id number] IMAN DANIELS MD RHEUMATOL OGY SB [address] [place] [address] 1 10/29/2021 13:20:49 10/29/2021 16:32:11 Generalized osteoarthritis 615752537 M15.9 Anti-nucle ar factor detected 643033393 R76.8 Chronic ki dney disease stage 3 988280035 N18.30 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 Degenerati on of intervertebral disc 25314447 M51.9 [id number] MD [facility] [address] [address] 12/14/2021 11:00:55 12/14/2021 11:55:32 Neurogenic dysfunction of urinary bladder 027420490 N31.9 follow-up: 1 month Chronic in fective cystitis 982508526 N30.20 Continue doxycyclin e Daily at bedtime Urinary tr act infectious disease 99623862 N39.0 as above follow-up 3 weeks [id number] MD [facility] [address] [address] 01/11/2022 11:01:02 01/11/2022 12:15:30 Neurogenic dysfunction of urinary bladder 990188472 N31.9 follow-up: 1 month Urge incon tinence of urine 20663912 N39.41 as above Urinary tr act infectious disease 67230320 N39.0 . Resolved. [id number] CANDY CHAVIRA MD CUA [facility] [address] [address] [address] 0 02/15/2022 11:10:41 02/15/2022 12:13:24 Urge incontinence of urine 08409970 N39.41 as above Neurogenic dysfunction of urinary bladder 270875456 N31.9 follow-up: 4 month [id number] CANDY CHAVIRA MD YUVAL [facility] [address], [address] [address] 0 06/21/2022 10:39:55 06/21/2022 11:15:28 Urge incontinence of urine 11720376 N39.41 as above Chronic re tention of urine 949902480 R33.8 Continue intermitte nt self-mirna terization 3 times per day [id number] CANDY CHAVIRA MD YUVAL [facility] [address] [place] [address] RD,[place] [address] 0 08/09/2022 13:52:31 08/09/2022 14:26:28 Urge incontinence of urine 22657603 N39.41 as above [id number] YUKI LOCKWOOD MD CUA [facility] [address], [address] [address] 0 08/12/2022 15:13:08 08/12/2022 17:00:46 Urge incontinence of urine 91051932 N39.41 Retention of urine 86859 4002 R33.9 [id number] YUKI LOCKWOOD MD CUA [facility] [address], [address] [address] 0 09/09/2022 16:33:36 09/10/2022 14:27:28 Urge incontinence of urine 78484619 N39.41 [id number] YUKIMD [facility]VAL [facility] [address] [place] [address] 09/14/2022 12:47:57 09/14/2022 13:33:19 Urge incontinence of urine 84075738 N39.41 [id number] YUKI LOCKWOOD MD SURGERY SCHEDULE [address] [place] [address] 1 09/20/2022 06:32:41 09/20/2022 06:33:30 Urge incontinence of urine 96127619 N39.41 [id number] BRISEIDA ADAM MD NEUROLOGY [facility] [address] [place] [address] 1 10/20/2022 14:31:04 10/20/2022 15:38:41 Spinal cord disease 70451798 G95.9 [id number] YUKI LOCKWOOD MD CUA [facility] [address] [place] [address] 0 10/26/2022 10:06:45 10/26/2022 11:08:35 Urge incontinence of urine 65870942 N39.41 Retention of urine 81675 4002 R33.9 [id number] ADAMNOEMI MITCHELL MD [facility] [address] [place] [address] 1 12/09/2022 12:40:21 12/10/2022 04:28:02 Dermatomyositis [id number] M33.90 Symptomati c with diffuse skin involvemen [...] of rituximab. Overall very complex disease with fpc prognosis remains guarded. High risk for malignancy . Needs to be up-to-date with [facility] alexandra cabrera. Follow up with me in 3 weeks. Labs obtained. Side effect profile of methotrexa te and steroids reviewed in detail. Long-term current use of immunosuppressive drug 581156635 Z79.60 Chest xr and labs obtained today. Itching of skin 56382361 0 L29.9 Secondary to dermatomyo sitis rash. Symptomati c management with hydroxyzin e. [id number] VENKATESH CORTES APRN [facility] [address] [place] [address] 12/27/2022 12:51:36 12/28/2022 04:49:18 Itching of skin 806591283 L29.9 Secondary to dermatomyo sitis rash. Symptomati c management with hydroxyzin e. Dermatomyositis 32540399 8 M33.90 Patient is a 77 year [...] needed. Long-term current use of immunosuppressive drug 690453399 Z79.60 12/27/22-CX R and labs discussed with patient.Diomedes vivas started on Methotrexa te last visit.We will obtain labwork today- CBC, CMP Herpes labialis 1819265 B00.1 [id number] YUKI LOCKWOOD MD [facility] [address] [place] [address] 01/04/2023 11:11:30 01/04/2023 12:16:42 Urge incontinence of urine 03548385 N39.41 [id number] VENKATESH CORTES APRN [facility] [address] [place] [address] 01/10/2023 12:47:45 01/11/2023 04:28:53 Dermatomyositis 761779662 M33.90 Patient is a 77 year old [...] office in 2 weeks Itching of skin 34930944 0 L29.9 Secondary to dermatomyo sitis rash. Symptomati c management with hydroxyzin e. Long-term current use of immunosuppressive drug 221022373 Z79.60 12/27/22-CX R and labs discussed with patient.Diomedes vivas started on Methotrexa te last visit.We will obtain labwork today- CBC, CMP Herpes labialis 5149598 B00.1 [id number] ADAM MITCHELL MD [facility] [address] [place] [address] 01/25/2023 14:22:51 01/26/2023 04:48:35 Dermatomyositis 518111548 M33.90 Patient is a 78 year old [...] Follow-up in 4 weeks Itching of skin 16840555 0 L29.9 Secondary to dermatomyo sitis rash. Much better continue with as needed hydroxyzin e. Long-term current use of immunosuppressive drug 184701085 Z79.60 12/27/22-CX R and labs discussed with patient.Re peat liver function CBC and ESR Dyspnea at rest 76294478 7 R06.00 She has dyspnea on exertion. [...] to go to the local ER at [facility]. Her and the patient voiced understand ing. [id number] YUKI LOCKWOOD MD [facility] [address] [place] [address] 02/23/2023 09:00:18 02/23/2023 09:48:35 Urge incontinence of urine 91815573 N39.41 [id number] ADAM MITCHELL MD [facility] [address] [place] [address] 03/01/2023 11:03:47 03/03/2023 04:58:23 Dermatomyositis 868820533 M33.90 Patient is a 78 year old [...] Follow-up in May 2022 Itching of skin 36471950 0 L29.9 Secondary to dermatomyo sitis rash. Improvemen t overall except for the scalp.cont inue with as needed hydroxyzin e. Long-term current use of immunosuppressive drug 720864720 Z79.60 Labs from January 2023 reviewed, stable. Repeat in April 2023. She will be in [place] in April and we will repeat the labs there. Psoriasis of scalp 02791 8008 L40.9 Clobetasol scalp solution and shampoo prescripti ons sent today. Chronic in terstitial lung disease 2070335943 70991 J84.9 She has evidence of mild chronic [...] seen in the left inferiorli ngular segment. [id number] NATHAN AMATO MD CARDIOLOG Y EAST [address] [place] [address] ,[address] [place] [address] 05/26/2023 13:28:18 05/26/2023 15:01:31 Dyspnea on exertion 10187288 R06.09 Based on history and physical exam, [...] tests in the near future. Chronic cough 36591965 R 05.3 F/u with PCP for this issue. [id number] ADAM MITCHELL MD [facility] [address] [place] [address] 05/31/2023 10:44:32 06/02/2023 10:14:47 Psoriasis of scalp 687991084 L40.9 Clobetasol scalp solution and shampoo prescripti ons sent today. Dermatomyositis 03637125 8 M33.90 Patient is a 78 year [...] the next few months Itching of skin 84767573 0 L29.9 Secondary to dermatomyo sitis rash. Improvemen t overall except for the scalp.cont inue with as needed hydroxyzin e. Long-term current use of immunosuppressive drug 019642480 Z79.60 Labs from January 2023 reviewed, stable. Repeat labs today Chronic in terstitial lung disease 0550822160 80432 J84.9 She has evidence of mild chronic [...] CT fall 2023. Malaise and fatigue 2717 38544 R53.83 R53.81 Chronic multifacto rial obtain vitamin B12 levels as well as vitamin D levels. Further obtain TSH [id number] YUKI LOCKWOOD MD [facility] [address] [facility] [place] [address] 06/02/2023 09:12:17 06/02/2023 09:35:30 Urge incontinence of urine 38856272 N39.41 [id number] NATHAN AMATO MD CARDIOLOG Y SB [address] [place] [address] 06/30/2023 11:33:49 06/30/2023 12:44:59 Essential hypertension 36701631 I10 BP today was = 120/82 mmHg; continue with current meds. - Losartan 25 mg po qd. Patient is recommende d to check BPs at home periodical ly & bring BP log to next visit. A low sodium (< 2000 mg/day) diet is also recommende d. Obesity 678832385 E66.9 patient's BMI today was = 34.5; [...] at 34 mmHg. Aortic karthik ve regurgitation 23056902 I35.1 Echocardio gram (06/13/23): LVEF=65-70 %, Mild AI, normal aortic and IVC measuremen ts, PASP is normal at 34 mmHg. Recommenda tions:1)RT C in 2 years with EKG2)Echoc ardiogram in 2 years (just prior to next office visit) [id number] BRISEIDA ADAM MD NEUROLOGY SB CLOSED [address] [place] [address] 07/04/2023 10:52:08 07/05/2023 04:43:29 Cervical myelopathy 367196563 G95.9 [id number] ADAM MITCHELL MD [facility] [address] [place] [address] 07/05/2023 10:51:26 07/06/2023 04:48:03 Psoriasis of scalp 631604103 L40.9 Improved, maintain use of clobetasol shampoo/ scalp solution. Dermatomyositis 92946594 8 M33.90 Patient is a 78 year [...] normal at 34 mmHg Itching of skin 34755483 0 L29.9 Secondary to dermatomyo sitis rash. Improvemen t overall except for the scalp.cont inue with as needed hydroxyzin e. Long-term current use of immunosuppressive drug 987954664 Z79.60 Labs from May 2023 reviewed, stable. Repeat labs mid August 2023 Chronic in terstitial lung disease 4495169102 39354 J84.9 She has evidence of mild chronic [...] CT fall 2023. Malaise and fatigue 2717 23296 R53.83 R53.81 Chronic, seems to be better. Her labs are fairly stable with normal ESR, normal B12 levels, normal folate levels, normal TSH. Blood sugar within the normal limits. [id number] ADAM MITCHELL MD [facility] [address] [place] [address] 10/04/2023 14:39:10 10/05/2023 04:25:09 Psoriasis of scalp 542226242 L40.9 Improved, maintain use of clobetasol shampoo/ scalp solution. Dermatomyositis 42955778 8 M33.90 Patient is a 78 year [...] labs in 3 months. Itching of skin 60269742 0 L29.9 Secondary to dermatomyo sitis rash. Improved since the last visit. Skin lesions are also better. She can continue with as needed hydroxyzin e. Long-term current use of immunosuppressive drug 699006391 Z79.60 09/28/23 CMPGFR 54CBC hemoglobin 12.1ESR 14 labs ordered. Chronic in terstitial lung disease 9246908658 61622 J84.9 She has evidence of mild chronic [...] CT fall 2023. Malaise and fatigue 2717 94031 R53.83 R53.81 Chronic, seems to be better. Her labs from 09/28/2023 are looking very good. Both cell count and ESR are normal. Anemia remains borderline . Liver panel is normal. Overall pleased with the progress. [id number] ADAM MITCHELL MD [facility] [address] [place] [address] 01/05/2024 10:45:48 01/06/2024 14:57:16 Psoriasis of scalp 270460325 L40.9 Improved, maintain use of clobetasol shampoo/ scalp solution. Dermatomyositis 19823408 8 M33.90 Patient is a 78 year [...] 34 mmHg They will be traveling to [place] for the winter, they will do the labs there with results faxed to my office. Refills were given. Repeat labs in 3 months. Itching of skin 75393739 0 L29.9 Secondary to dermatomyo sitis rash. Improved since the last visit. Skin lesions are also better. She can continue with as needed hydroxyzin e. Long-term current use of immunosuppressive drug 310400635 Z79.60 12/29/23 labsCBC normalCrea tinine 1.10, GFR 48. Chronic in terstitial lung disease 1300605912 04842 J84.9 She has evidence of mild chronic [...] ution CT chest on her return from [place]. Pain of le ft knee joint 9724474363 05513 M25.562 symptomati c left knee.Can [place] to osteoarthr itis.She is taking Advil in combinatio n with the Tylenol which she is advised to stop using any NSAID specially on account of chronic kidney disease. She was given an intra-claudy cular steroid injection to reduce the inflammati on. No complicati ons noted. She can maintain Tylenol Extra Strength. [id number] MD [facility] [address] [place] [address] 02/02/2024 11:29:47 02/02/2024 11:51:11 Acute urinary tract infection 916147838 N39.0 Retention of urine 88496 4002 R33.9 [id number] MD [facility] [address] [place] [address] 02/21/2024 11:22:45 02/21/2024 11:56:19 Acute urinary tract infection 012314702 N39.0 [id number] MD [facility]VAL [facility] [address] [address] 03/08/2024 09:18:43 03/09/2024 04:24:47 Acute urinary tract infection 878797450 N39.0 Retention of urine 08960 4002 R33.9 [id number] ADAM MITCHELL MD [facility] [address] [place] [address] 05/30/2024 10:31:29 06/04/2024 10:20:34 Psoriasis of scalp 522471440 L40.9 Chronic and improved, maintain use of clobetasol shampoo/ scalp solution. Dermatomyositis 41393839 8 M33.90 Patient is a 79 year [...] malignancy discussed with patient. [facility] Up-to-date with colonoscop y. She does have [...] mmHg f/u in August. Itching of skin 69096381 0 L29.9 Secondary to seasonal allergies and dermatomyo sitis rash. Improved since the last visit. Skin lesions are also better. She can continue with as needed hydroxyzin e. Long-term current use of immunosuppressive drug 179686151 Z79.60 12/29/23 labsCBC normalCrea tinine 1.10, GFR 48. She'll do the labs every 3 months. Chronic in terstitial lung disease 7032928198 22656 J84.9 She has evidence of mild chronic [...] arterial hypertensi on. Bilateral lower leg edema 169306925 R60.0 Secondary to venous insufficie ncy along with dependent edema Adjusted compressio n stockings during the day. Brief trial of furosemide 20 mg 3 times a week along with potassium 10 mEq. This is followed by on as needed basis Labs electrolyt es while taking the diuretic [id number] BRISEIDA ADAM MD NEUROLOGY [address] [place] [address] 06/04/2024 09:35:23 06/05/2024 04:28:01 Cervical myelopathy 925196594 G95.9 [id number] ADAM EMANUEL MITCHELL MD [facility] O[facility] [address] [place] [address] 08/23/2024 15:21:07 08/29/2024 08:57:08 Psoriasis of scalp 676871575 L40.9 Chronic and improved, maintain use of clobetasol shampoo/ scalp solution. Dermatomyositis 93424891 8 M33.90 Patient is a 79 year old female following up with dermatomyo sitis. Multisyste m involvemen t including skin, muscle and lungs. On triple therapy. Skin lesions are well-contr olled She does have some seasonal allergies and fullness involving the eyelids. Positive itching. No active dermatomyo sitis lesion Strength is slightly diminished , more due to poor conditioni ng. Otherwise, fairly stable in both proximal and distal upper and lower extremitie s. Significan t venous stasis changes lower extremitie s pulmonary examinatio n demonstrat e mild crackles at the lung bases, chronic but otherwise stable. She has positive Tif1 gamma Ab level,-Hig h risk for malignancy discussed with patient. To date with health alexandra eldridge Needs an Up-to-date with colonoscop y. she will do it after coming off the Elaquis. She does have strongly positive SUHAS screen at 1: 640. skin biopsy 11/09/2022 confirmed interface dermatitis from left forehead. She is suggested to continue with the triple therapy including: Maintain 15mg methotrexa te weekly. Continue with folic acid 2 mg a day and leucovorin 5 mg 12 hours after methotrexa te dose. Continue with CellCept at 1 g a day in divided doses Keep Prednisone at 5 mg every other day. After her bladder procedure, Ill refer her to work with PT to strengthen her muscles. Maintain lab studies anywhere between 3 to 4 months Follow-up in 3 months ECHO 06/13/2023 reviewedL heart normal function EF 65-70%Norm al aorta and IVC measuremen tsEstimate d PA systolic pressure is normal at 34 mmHg f/u in 3 months Itching of skin 62327742 0 L29.9 Secondary to seasonal allergies and dermatomyo sitis rash. Improved since the last visit. Skin lesions are also better. She can continue with as needed hydroxyzin e. Long-term current use of immunosuppressive drug 591312559 Z79.60 12/29/23 labsCBC normalCrea tinine 1.10, GFR 48. She'll do the labs every 3 months. Chronic in terstitial lung disease 4743980267 30466 J84.9 She has evidence of mild chronic [...] arterial hypertensi on. Bilateral lower leg edema 471792776 R60.0 Secondary to venous insufficie ncy along with dependent edema Adjusted compressio n stockings during the day. Brief trial of furosemide 20 mg 3 times a week along with potassium 10 mEq. This is followed by on as needed basis Labs electrolyt es while taking the diuretic Anemia 338038383 D64.9 08/14/24CBC hemoglobin 11.6g. She was originally scheduled for a colonoscop y but was postponed due to DVT. I advised her to get a colonoscop y post bladder procedure. Health Concerns Section Related Observation LastModified by Organization Detai ls LastModified Time None Recorded Concern Status LastModified by Organization Details LastModified Time None Recorded Advance Directives Directive None Recorded Payers Insurance Date Sequence Insurance Name Policy Number Policy Kurtz Covered Member ID Kurtz Member ID Guarantor Name 08/29/2024 2 [employer] (MEDICARE SUPPLEMENT) Kelli Bradshaw Tyler [id number] Kelli Raygoza Tyler 08/20/2024 1 [place] Kelli Raygoza Tyler [id number] Kelli Raygoza Tyler Notes Date Note Type Note Provider Name and Address Organization Details Recorded Time 02/21/2024 text/html Her culture was positive for [...] 75 mg Gemtesa daily YUKI LOCKWOOD MD [address] [place] [address] [place], [address], [facility] 02/21/2024 11:54:24 03/08/2024 text/html She continues to have severe problems with bladder spasms. Her repeat culture showed no growth. Urine continues to show pyuria and another culture is started. She is on Gemtesa. We will have her meet with the [email or web address] to see if they can make adjustments to the InterStim. The meantime we will switch to Macrobid. She continues to do the self catheterizations 3 times a day YUKI LOCKWOOD MD [address] [place] [address] [place], [address], [facility] 03/08/2024 10:01:13 05/30/2024 text/html 79 year old fema le seen today in our rheumatology department for a follow up on dermatomyositis. 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 While she was in [place], she developed a blood clot in her [...] any history of malignancy. ADAM MITCHELL MD [address] [place] [address], [phone], [facility] 05/31/2024 08:03:27 06/04/2024 text/html She was seen [...] fall.Uses cane at times. BRISEIDA ADAM MD [address] [place] [address], [phone], [facility] 06/04/2024 17:25:52 08/23/2024 text/html 79 year old gonzalez le seen today in our rheumatology department for a follow up on dermatomyositis. 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 She is on high risk medications including methotrexate, CellCept and prednisone. Her feels her muscle tone has diminished. She has been using an leg bike for 30 minutes daily which has been helping with her ankles. She was scheduled for a colonoscopy in May earlier but was postponed due to the DVT.She has seen multiple urologists and [facility] due to recurrent UTI's and had a brown catheter placed. She is seeing a urologist again next week to have it removed and going to have a scope. She is still on Elquis. Past medical history significant for: hypertension, chronic kidney disease stage III, acid reflux, neurogenic dysfunction of urinary bladder, history of transverse myelitis. She does not have any history of malignancy. ADAM MITCHELL MD [address] [place] [address], [phone], [facility] 08/24/2024 11:15:35 OBGyn Episode No OBEpisode recorded.
--- OUTSIDE RECORDS SUMMARY | 2024-09-11 10:47 | XMS_ITS | Encounter Summary ---
Author Organization [employer] Address [address] [place] [address] Care Team Providers Care Account Technician Name Role Phone Unavailable Primary Care Provider Unavailabl e Encounter Details Date Type Department Care Team (Late st Contact Info) Description 02/05/2019 Transcribed Document [facility] Family Medicine [address] [place] [address] ProviderYusuf MD [facility] [place] [address] Social History Tobacco Use Types Packs/Day Years [...] Conversion Note - Historical ProviderMD - 02/05/2019 5:00 PM JIRA DEVELOPER Chart Check - Review Order Profile Entered On: 02/05/2019 17:16 EST Performed On: 02/05/2019 17:00 EST by SAVANNA VARGAS RN Chart Check Powerplans Initiated/Discontinued as Appropriate : Yes All Active Orders Reviewed : Yes SAVANNA VARGAS RN - 02/05/2019 17:16 EST documented in this encounter Plan of Treatment Not on file documented as of this encounter Visit Diagnoses Not on filedocumented in this encounter
--- OUTSIDE RECORDS SUMMARY | 2024-09-11 10:47 | XMS_ITS | Encounter Summary ---
Author Organization [employer] Address [address] [place] [address] Care Team Providers Care Crusher Plant Operator Name Role Phone Unavailable Primary Care Provider Unavailabl e Encounter Details Date Type Department Care Team (Late st Contact Info) Description 02/13/2019 Transcribed Document [facility] Family Medicine [address] [place] [address] ProviderYusuf MD [address] [place], [place] [address] Social History Tobacco Use Types Packs/Day Years [...] Conversion Note - Historical ProviderMD - 02/13/2019 2:00 AM COMMUNICATION SKILLS INSTRUCTOR Cardiac Cath Tech Details Entered On: 02/13/2019 4:00 EST Performed On: 02/13/2019 2:00 EST by JAYA WASHINGTON REGISITERED_NURSE Order Details Transport Mode Order Detail : Wheelchair Isolation Precautions Order Detail : Standard Precautions Order Detail : N/A Oxygen Order Detail : 1 Nurse Collect Order Detail : 0 Lift/Transfer : Minimal Central Line Order Detail : No Room Service : Appropriate Arterial Line : No JAYA WASHINGTON REGISITERED_NURSE - 02/13/2019 4:00 EST documented in this encounter Plan of Treatment Not on file documented as of this encounter Visit Diagnoses Not on filedocumented in this encounter
--- OUTSIDE RECORDS SUMMARY | 2024-09-11 10:47 | XMS_ITS | Encounter Summary ---
Author Organization [employer] Address [address] [place] [address] Care Team Providers Care Supervisor Core Drilling Name Role Phone Unavailable Primary Care Provider Unavailabl e Encounter Details Date Type Department Care Team (Late st Contact Info) Description 02/08/2019 Transcribed Document [facility] Family Medicine [address] [place] [address] ProviderYusuf MD [facility] [place], [place] [address] Social History Tobacco Use Types Packs/Day Years [...] Note - Historical ProviderMD - 02/08/2019 5:00 AM CERTIFIED PHARMACY TECHNICIAN Chart Check - Review Order Profile Entered On: 02/08/2019 5:18 EST Performed On: 02/08/2019 5:00 EST by Lesly Colindres RN Chart Check All Active Orders Reviewed : Yes Lesly Colindres RN - 02/08/2019 5:18 EST Electronically signed by Lillian [facility] Conversion Soil Surveyor Cerner at 07/07/2022 10:01 PM CDT documented in this encounter Plan of Treatment Not on file documented as of this encounter Visit Diagnoses Not on filedocumented in this encounter
--- OUTSIDE RECORDS SUMMARY | 2024-09-11 10:47 | XMS_ITS | Encounter Summary ---
Author Organization [employer] Address [address] [place] [address] Care Team Providers Care Felter Tennis Balls Name Role Phone Unavailable Primary Care Provider Unavailabl e Encounter Details Date Type Department Care Team (Late st Contact Info) Description 02/15/2019 Transcribed Document [facility] [place] Family Medicine [address] [place] [address] ProviderYusuf MD [facility] [place], [place] [id number] Social History Tobacco Use Types Packs/Day Years Used Date Smoking Tobacco: Never Assessed Comments Unknown Sex and Gender Information Value Date Recorded Sex Assigned at Female 09/17/2021 5:37 PM CDT Legal Sex Female 5:37 PM CDT Gender Identity Female 09/17/2021 5:37 PM CDT Sexual Orientation Not on file documented as of this encounter Miscellaneous Notes * Cerner Conversion Note - Historical ProviderMD - 02/15/2019 10:58 AM JET PIERCER OPERATOR Patient Education Materials Follows: Transverse Myelitis Transverse myelitis is a condition that causes inflammation of the spinal cord. The inflammation affects the fatty lining that covers spinal cord nerves (myelin). It can cause scarring of nerves, which can interfere with nerve signals passing to and from the spinal cord. Signs and symptoms of this condition happen at the affected level of the spinal cord and below. The condition most often causes weakness of the arms or legs, pain, changes in feeling (sensation), and bowel and bladder problems. What are the causes? The exact cause of this condition is not known. It sometimes develops after a viral infection, such as herpes, chicken pox, cytomegalovirus, HIV, or Mikal-Medina virus. It can also occur after a bacterial infection or along with diseases that make the body?s immune system mistakenly attack healthy tissues (autoimmune diseases). What increases the risk? This condition is more likely to develop in: ??? People who have an autoimmune disease, especially multiple sclerosis and neuromyelitis optica. ??? People 10?19 years old. ??? People 30?39 years old. What are the signs or symptoms? Symptoms of this condition may start suddenly within hours or develop gradually over weeks. Symptoms include: ??? Pain, especially in the neck or back, with shooting pains into the legs. ??? Headache. ??? Weakness of the arms or the legs. ??? Abnormal sensations, such as burning, prickling, numbness, or tingling in the arms or legs. ??? Increased sensitivity to touch or changes in temperature. ??? Bowel and bladder problems, including increased need to go, loss of control, and difficulty going. ??? Difficulty walking, including foot dragging and stumbling. ??? Fatigue. ??? Fever. ??? Loss of appetite. ??? Paralysis. ??? Difficulty breathing. How is this diagnosed? This condition may be diagnosed with a neurological exam. During this exam, your health care provider will ask about your symptoms and do a complete physical exam to check your spinal cord function. You may need to see a nervous systems protection technician (neurologist) to have tests, which may include: ??? An MRI to check for inflammation or scarring. ??? Blood tests to check for infections that can trigger this condition or for neuromyelitis optica. ??? A lumbar puncture to check your spinal fluid for signs of infection or inflammation. For this procedure, a small amount of the fluid that surrounds the brain and spinal cord is removed and examined. How is this treated? There is no cure for this condition. You may have treatment to reduce inflammation and control symptoms. Treatment may involve: ??? Pain medicine. ??? Corticosteroid medicines to reduce inflammation. These are usually given through an IV needle at first. Later, they may be taken by mouth. ??? Breathing support with a device called a respirator. ??? Physical therapy to: ? Reduce the risk of bedsores. ? Improve muscle strength, flexibility, coordination, and range of motion in affected muscles. ? Reduce muscle spasms and muscle wasting in paralyzed arms or legs. ? Improve control over your bladder and bowel. ??? Occupational therapy. This therapy helps you learn how to care for yourself and do everyday tasks such as bathing and dressing. It cannot reverse problems caused by this condition, but it can help you become as independent as possible. Follow these instructions at home: ??? Take ajxz-ysw-bysykic and prescription medicines only as told by your health care provider. ??? Rest in bed at home as told by your health care provider until you start to recover strength and movement. Ask your health care provider what activities are safe for you. ??? Perform any exercises as told by your health care provider. ??? Keep all follow-up visits as told by your health care provider. This is important. Contact a health care provider if: ??? Your symptoms are not improving or are getting worse. ??? You have symptoms that come back after going away. ??? You are having a hard time managing at home. Get help right away if: ??? You cannot care for yourself at home. ??? You have trouble breathing. This information is not intended to replace advice given to you by your health care provider. Make sure you discuss any questions you have with your health care provider. Document Released: 02/25/2003 Document Revised: 11/07/2016 Document Reviewed: 08/13/2015 [employer] Patient Education ? 2019 [employer]. Neurology Spinal Cord Infarction A spinal cord infarction is a loss of blood supply to your spinal cord. It is sometimes called a spinal cord stroke. A spinal cord infarction can cause damage that prevents messages from traveling back and forth between your spinal cord and the rest of your body. The main blood vessel that supplies your spinal cord is called the anterior spinal artery. When this artery is blocked, the lower body is usually affected. What are the causes? The most common cause is narrowing and thickening of arteries that supply your spinal cord (arteriosclerosis). With arteriosclerosis the arteries may become narrow enough to block blood supply directly. Spinal cord infarction can also be caused by a clot that forms in an artery farther away and then breaks loose and blocks the arteries that supply your spinal cord. What increases the risk? You may be at risk for spinal cord infarction if you: ??? Have high blood pressure. ??? Are a smoker. ??? Have high cholesterol. ??? Have heart disease. ??? Have a family history of stroke or heart disease. What are the signs or symptoms? Symptoms generally appear in your lower body within minutes or a few hours of the infarction. They can vary from person to person. Symptoms may include: ??? Sudden and severe back pain. ??? Muscle spasms. ??? Aching pain down through your legs. ??? Weakness in your legs. ??? Loss of movement in your legs (paralysis). ??? Loss of the ability to feel pain and temperature in your lower body. ??? Inability to control urination or bowel movements (incontinence). How is this diagnosed? Your health care provider may suspect spinal cord infarction based on the symptoms that suddenly appear in your lower body. You may be examined by a health care provider who specializes in the brain and spinal cord (neurologist). During the exam, your health care provider will check for: ??? Muscle weakness. ??? Areas of numbness. ??? Abnormal responses when your muscles are tested (absent reflexes). You may have tests to help confirm the diagnosis. These may include: ??? An MRI of your spinal cord. This is the most important test for diagnosing spinal cord infarction. ??? Tests to measure how well your nerves conduct messages to and from your spinal cord (electromyography). How is this treated? Treatment is based on your symptoms. It may include: ??? Blood-thinning medicines to improve circulation and prevent blood clots. ??? Medicines to improve bladder control. ??? Muscle relaxants for muscle spasms. ??? Physical and occupational therapy to help you recover from weakness or paralysis. ??? Treatment for high blood pressure and high cholesterol. Recovery depends on how quickly you get treatment and how severely your body has been affected. Recovery from spinal cord infarction can take months or years. Follow these instructions at home: ??? Work closely with all your health care providers. These may include therapists to help you: ? Exercise. ? Take care of yourself at home. ? Manage bowel and bladder problems. ? [place] with mental health problems. ? Manage pain. ??? Eat a heart-healthy diet. Include lots of fiber to prevent constipation. ??? Maintain a healthy weight. ??? Make sure you have a good support system at home. Let someone know if you are struggling with anxiety or depression. ??? Do not smoke. If you need help quitting, ask your health care provider. Contact a health care provider if: ??? You have chills or fever. ??? Your symptoms change or get worse. ??? You need more support at home. Get help right away if: ??? You have chest pain. ??? You have trouble breathing. ??? You no longer can manage at home. This information is not intended to replace advice given to you by your health care provider. Make sure you discuss any questions you have with your health care provider. Document Released: 02/25/2003 Document Revised: 11/02/2016 Document Reviewed: 05/21/2014 [employer] Interactive Patient Education ? 2019 [employer] Weakness Weakness is a lack of strength. You may feel weak all over your body (generalized), or you may feel weak in one specific part of your body (focal). There are many potential causes of weakness. Sometimes, the cause of your weakness may not be known. Some causes of weakness can be serious, so it is important to see your doctor. Follow these instructions at home: ??? Rest as needed. ??? Try to get enough sleep. Talk to your doctor about how much sleep you need each night. ??? Take ljwh-kmw-ngmegpu and prescription medicines only as told by your doctor. ??? Eat a healthy, well-balanced diet. This includes: ? Proteins to build muscles, such as lean meats and fish. ? Fresh fruits and vegetables. ? Carbohydrates to boost energy, such as whole grains. ??? Drink enough fluid to keep your pee (urine) clear or pale yellow. ??? Do strength exercises, such as arm curls and leg raises, for 30 minutes at least 2 days a week or as told by your doctor. ??? Think about working with a physical therapist or customer trainer to help you get stronger. ??? Keep all follow-up visits as told by your doctor. This is important. Contact a doctor if: ??? Your weakness does not get better or it gets worse. ??? Your weakness affects your ability to: ? Think clearly. ? Do your normal daily activities. Get help right away if: ??? You have sudden weakness. ??? You have trouble breathing or shortness of breath. ??? You have problems with your vision. ??? You have trouble talking or swallowing. ??? You have trouble standing or walking. ??? You have chest pain. ??? You are light-headed. ??? You pass out (lose consciousness). This information is not intended to replace advice given to you by your health care provider. Make sure you discuss any questions you have with your health care provider. Document Released: 02/17/2009 Document Revised: 04/01/2016 Document Reviewed: 12/26/2015 [employer] Interactive Patient Education ? 2019 [employer] Obstetrics and Gynecology Near-Syncope Near-syncope is when you suddenly get weak or dizzy, or you feel like you might pass out (faint). This is due to a lack of blood flow to the brain. During an episode of near-syncope, you may: ??? Feel dizzy or light-headed. ??? Feel sick to your stomach (nauseous). ??? See all white or all black. ??? Have cold, clammy skin. If you passed out, get help right away.Call your local emergency services (911 in the [place] Do not drive yourself to the hospital. Follow these instructions at home: Pay attention to any changes in your symptoms. Take these actions to help with your condition: ??? Have someone stay with you until you feel stable. ??? Do not drive, use machinery, or play sports until your doctor says it is okay. ??? Keep all follow-up visits as told by your doctor. This is important. ??? If you start to feel like you might pass out, lie down right away and raise (elevate) your feet above the level of your heart. Breathe deeply and steadily. Wait until all of the symptoms are gone. ??? Drink enough fluid to keep your pee (urine) clear or pale yellow. ??? If you are taking blood pressure or heart medicine, get up slowly and spend many minutes getting ready to sit and then stand. This can help with dizziness. ??? Take djcr-rfg-brdbbpx and prescription medicines only as told by your doctor. Get help right away if: ??? You have a very bad headache. ??? You have unusual pain in your chest, tummy, or back. ??? You are bleeding from your mouth or rectum. ??? You have black or tarry poop (stool). ??? You have a very fast or uneven heartbeat (palpitations). ??? You pass out one time or more than once. ??? You have jerky movements that you cannot control (seizure). ??? You are confused. ??? You have trouble walking. ??? You are very weak. ??? You have vision problems. These symptoms may be an emergency. Do not wait to see if the symptoms will go away. Get medical help right away. Call your local emergency services (911 in the [place] Do not drive yourself to the hospital. This information is not intended to replace advice given to you by your health care provider. Make sure you discuss any questions you have with your health care provider. Document Released: 08/23/2008 Document Revised: 04/20/2017 Document Reviewed: 11/19/2015 [employer] Interactive Patient Education ? 2019 [employer] documented in this encounter Plan of Treatment Not on file documented as of this encounter Visit Diagnoses Not on filedocumented in this encounter
--- OUTSIDE RECORDS SUMMARY | 2024-09-11 10:47 | XMS_ITS | Encounter Summary ---
Author Organization [employer] Address [address] [place] [address] Care Team Providers Care Electronic Data Processing Auditor Name Role Phone Unavailable Primary Care Provider Unavailabl e Encounter Details Date Type Department Care Team (Late st Contact Info) Description 02/14/2019 Transcribed Document [facility] [place] [address] [place] [address] ProviderYusuf MD [address] [place] [address] Social History Tobacco Use Types Packs/Day Years [...] Conversion Note - Historical ProviderMD - 02/14/2019 2:00 AM SURGICAL CLINICAL REVIEWER Colorer Machine Details Entered On: 02/14/2019 6:40 EST Performed On: 02/14/2019 2:00 EST by JAYA WASHINGTON REGISITERED_NURSE Order Details Transport Mode Order Detail : Wheelchair Isolation Precautions Order Detail : Standard Precautions Order Detail : N/A IV Order Detail : 1 Oxygen Order Detail : 0 Lift/Transfer : Minimal Central Line Order Detail : No Room Service : Appropriate Arterial Line : No JAYA WASHINGTON REGISITERED_NURSE - 02/14/2019 6:39 EST documented in this encounter Plan of Treatment Not on file documented as of this encounter Visit Diagnoses Not on filedocumented in this encounter
--- OUTSIDE RECORDS SUMMARY | 2024-09-11 10:47 | XMS_ITS | Encounter Summary ---
Author Organization [employer] Address [address] [place] [address] Care Team Providers Care Product Safety Technical Assistant Name Role Phone Unavailable Primary Care Provider Unavailabl e Encounter Details Date Type Department Care Team (Late st Contact Info) Description 02/14/2019 Transcribed Document [facility] Family Medicine [address] [place] [address] ProviderYusuf MD [facility] [place], [place] [address] Social History Tobacco Use Types Packs/Day Years [...] Note - Historical ProviderMD - 02/14/2019 5:00 PM FRONT DESK OFFICER Chart Check - Review Order Profile Entered On: 02/14/2019 18:34 EST Performed On: 02/14/2019 17:00 EST by Giselle Stanley RN Chart Check All Active Orders Reviewed : Yes Giselle Stanley RN - 02/14/2019 18:34 EST documented in this encounter Plan of Treatment Not on file documented as of this encounter Visit Diagnoses Not on filedocumented in this encounter
--- OUTSIDE RECORDS SUMMARY | 2024-09-11 10:47 | XMS_ITS | Encounter Summary ---
Author Organization [employer] Address [address] [place] [address] Care Team Providers Care Sinker Winder Name Role Phone Unavailable Primary Care Provider Unavailabl e Encounter Details Date Type Department Care Team (Late st Contact Info) Description 02/13/2019 Transcribed Document [facility] Family Medicine [address] [place] [address] ProviderYusuf MD [facility] [place], [place] [address] Social History Tobacco Use Types Packs/Day Years [...] Conversion Note - Historical ProviderMD - 02/13/2019 9:25 AM LOCKSTITCH SLEEVE SETTER On Going Discharge Planning Entered On: 02/13/2019 9:37 EST Performed On: 02/13/2019 9:25 EST by Neva Cotto RN Care Management [...] Patient Patient Offered Choice/Affiliations Explained : Yes Were Referrals Sent to Post Acute Providers : Yes Is the Patient Meeting Medical Necessity : Yes Did you Attend Multidisciplinary Rounds? : Yes Neva Cotto RN - 02/13/2019 9:25 EST Narrative Progress Note Narrative Progress Note : 74 year old female [...] prefer STR. Patient's first choice would be [facility] in [place] and second choice is [facility]. Referrals sent through [facility]. CM will continue to follow. Historical Progress Note : CM reviewed chart. Neuro consult and following, MRI Cervical Thor. and Lumbar Spine. Discussed DCP with pt including HH vs Rehab. CM Will continue to follow for d/c needs. ALECIA GOMEZ RN-Central Office Repairer - 02/09/19 14:52:38 CM reviewed chart. Cm [...] to follow for d/c needs. ALECIA GOMEZ RN-Central Office Repairer - 02/08/19 09:16:23 CM reviewed chart. RRS 38. Cm to room to met pt. Pt spouse in room. spouse stated that pt is off floor for Xray. Spouse stated that DCP is to discharge home with family. Possible hh if a need. CM will continue to follow for d/c needs. ALECIA GOMEZ RN-Central Office Repairer - 02/07/19 09:05:36 Neva Cotto RN - 02/13/2019 9:25 EST Electronically signed by Onel Snyder Conversion Forward Air Controller/Air Officer Cerner at 07/07/2022 10:01 PM CDT documented in this encounter Plan of Treatment Not on file documented as of this encounter Visit Diagnoses Not on filedocumented in this encounter
--- OUTSIDE RECORDS SUMMARY | 2024-09-11 10:47 | XMS_ITS | Encounter Summary ---
Author Organization [employer] Address [address] [place] [address] Care Team Providers Care Dairy Worker Name Role Phone Unavailable Primary Care Provider Unavailabl e Encounter Details Date Type Department Care Team (Late st Contact Info) Description 02/14/2019 Transcribed Document [facility] Radiology [address] [place] [address] Zack Jha MD [address] [place] [address] [id number] [place] [id number] Social History Tobacco Use Types Packs/Day Years [...] Conversion Note - Zack Jha MD - 02/14/2019 1:04 PM EST Patient: FRANKY DEWITT Age: 74 years Sex: Female : 1945 Associated Diagnoses: None Author: ZACK JHA MD-INT Subjective Primary care physician Dr Bradley CRUZ Date of admission 02/05/[address] Johan Sue neurology [facility] Chief complaint bilateral upper and lower extremity [...] they are looking for some rehabilitation placement. 03/16/2019 Patient is awake and alert. No apparent distress noted. is at bedside. Complaining of mild headache and BPs slightly fluctuating. Skiing something to help her sleep at night. Past medical history is significant for prior [...] 24 hrs) Last Charted Minimum Maximum Temp 98 (FEB 14 05:44) 97.5 (FEB 13 18:20) 98.2 (FEB 13 20:11) Mon HR 62 (FEB 14 05:44) 62 (FEB 14 05:00) 73 (FEB 13 13:46) Resp Rate 16 (FEB 14 05:44) 16 (FEB 13 20:11) 18 (FEB 13 13:46) SBP 126 (FEB 14 09:39) 126 (FEB 14 09:39) H 184 (FEB 13 21:44) DBP 78 (FEB 14 09:39) 78 (FEB 14 09:39) H 93 (FEB 13 21:44) MAP 103 (FEB 14 05:44) 97 (FEB 13 13:46) 125 (FEB 13 22:14) SpO2 95 (FEB 14 05:44) 95 (FEB 14 01:46) 98 (FEB 13 13:46) General: No acute distress. Eye: Normal conjunctiva. HENT: Normocephalic. Neck: Supple, No jugular venous distention. Respiratory: Lungs are clear to auscultation, Respirations are non-labored, Breath sounds are equal. Cardiovascular: Normal rate, Regular rhythm, No gallop, S1+ S2 No S3 or S4 [place].. Gastrointestinal: Soft, Non-tender, Non-distended, Normal bowel sounds. Musculoskeletal: Lower extremity weakness. Integumentary: Warm, Dry, No rash. Neurologic: Alert, Oriented, She has bilateral upper and lower extremity weakness-lower ext more so than upper. Psychiatric: Cooperative, Appropriate mood & affect. Results Review General results Interpretation: FEB 14 04:21 138 111 H 26 / 94 3.5 25 0.80 \ FEB 14 04:21 \ 12.1 / 8.8 187 / 35.6 \ Labs (Last four charted values) WBC 8.8 (FEB 14) H 13.7 (FEB 11) 6.3 (FEB 06) 7.8 (FEB 05) HB 12.1 (FEB 14) 13.7 (FEB 11) 12.6 (FEB 06) 12.8 (JAN 18) HCT 35.6 (FEB 14) 40.1 (FEB 11) 39.0 (FEB 06) 38.8 (NOV 18) Plt 187 (FEB 14) 254 (FEB 11) 192 (NOV ) 222 (NOV 18) Na 138 (FEB 14) 138 (FEB 11) 139 (NOV ) 140 (NOV 18) K 3.5 (FEB 14) 4.1 (FEB 11) 3.7 (FEB 06) 3.6 (FEB 05) Cl 111 (FEB 14) 107 (FEB 11) 108 (FEB 06) 108 (FEB 05) CO2 25 (FEB 14) 24 (FEB 11) 29 (FEB 06) 28 (FEB 05) BUN H 26 (FEB 14) H 37 (FEB 11) 18 (FEB 06) H 24 (FEB 05) Cr 0.80 (FEB 14) 0.90 (FEB 11) 0.90 (FEB 06) 1.00 (FEB 05) Glu R 94 (FEB 14) H 154 (FEB 11) 88 (FEB 06) 97 (FEB 05) Ca L 8.2 (FEB 14) 9.1 (FEB 11) 9.1 (FEB 06) 9.1 (FEB 05) PT 11.0 (FEB 06) INR 1.0 (FEB 06) PTT 25.9 (FEB 06) AST 10 (FEB 14) 12 (FEB 11) 14 (FEB 05) ALT 17 (FEB 14) 26 (FEB 11) 26 (FEB 05) ALK P 61 (FEB 14) 73 (FEB 11) 73 (FEB 05) T Bili 0.6 (FEB 14) 0.4 (FEB 11) 0.3 (FEB 05) PTN 8.2 (FEB 14) 7.4 (FEB 11) 7.7 (FEB 05) ALB L 2.6 (FEB 14) 3.4 (FEB 11) 3.8 (FEB 05) No Radiology Results Found Impression and Plan DIAGNOSIS: 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 etiology-s/p MRI and LP , evaluated by neurology and rheumatology. Poor bowel-bladder function control - multifactorial and seems improving. Pyuria-but doubt UTI - continue to monitor. Asymptomatic. SUHAS positive-? significance-screen send out-pending Essential hypertension-marginal BP-orthostatic hypotension Hyperlipidemia Recent left knee surgery Anxiety and depression PLAN Continue current treatment. Adding Melatonin at night. CT abdomen and chest ordered yesterday and is still pending. Appreciated urology input and follow recommendations. Follow labs and electrolytes as needed. Physical occupational and speech therapy is ongoing. DC plan: Likely tomorrow to the [facility] for short-term rehabilitation. documented in this encounter Plan of Treatment Not on file documented as of this encounter Visit Diagnoses Not on filedocumented in this encounter
--- OUTSIDE RECORDS SUMMARY | 2024-09-11 10:47 | XMS_ITS | Encounter Summary ---
Author Organization [employer] Address [address] [place] [address] Care Team Providers Care Can Filler Name Role Phone Unavailable Primary Care Provider Unavailabl e Encounter Details Date Type Department Care Team (Late st Contact Info) Description 02/14/2019 Transcribed Document [facility] [place] Family Medicine [address] [place] [address] ProviderYusuf MD [facility] [place] [address] Social History Tobacco Use Types Packs/Day Years [...] Conversion Note - Historical ProviderMD - 02/14/2019 2:46 PM SOFT IRON INSPECTOR On Going Discharge Planning Entered On: 02/14/2019 14:52 EST Performed On: 02/14/2019 14:46 EST by Neva Cotto RN Care Management Progress Note Designation of Choice Signed : Yes (Comment: Patient given a list of providers for STR with associated STARS rating. Patient selected [facility]. [Neva Cotto RN - 02/14/2019 15:08 EST] ) Discharge Arrangements : Patient Post-Acute Information Patient Name: FRANKY DEWITT Gender: Female : [birth year] Age: 74 Years No Post-Acute Placement(s) Listed No Post-Acute Service(s) Listed No [place] Referral(s) Listed Neva Cotto RN - 02/14/2019 15:08 EST Discharge Options Discussed with Patient : Short term rehabilitation Barriers to Discharge Identified : Clinical Condition of Patient Barriers to Discharge Unresolved : Clinical Condition of Patient Patient Offered Choice/Affiliations Explained : Yes Is the Patient Meeting Medical Necessity : Yes Did you Attend Multidisciplinary Rounds? : Yes Neva Cotto RN - 02/14/2019 14:46 EST Narrative Progress Note Narrative Progress Note : HD#9 Patient walked 375 feet with PT/RWx. CT of the chest, abdomen and pelvis with/out contrast completed. DCP: [facility] spinal cord unit tomorrow. will transport. IM and Choice signed. Historical Progress Note : Patient chose [facility] for STR. CM notified that patient has been approved for admission. Dr. Bales in to speak with patient, family and CM. Will order diagnostic scand for tomorrw and plan on admission to [facility] on , 02/15. Neva Cotto RN - 02/13/19 16:20:09 74 year old female direct admit from [...] prefer STR. Patient's first choice would be [facility] and second choice is [facility]. Referrals sent through [facility]. CM will continue to follow. Neva Cotto RN - 02/13/19 09:37:24 CM reviewed chart. Neuro consult and following, MRI Cervical Thor. and Lumbar Spine. Discussed DCP with pt including HH vs Rehab. CM Will continue to follow for d/c needs. ALECIA GOMEZ, RN-Crm Marketing Specialist - 02/09/19 14:52:38 CM reviewed chart. Cm [...] to follow for d/c needs. ALECIA GOMEZ, RN-Crm Marketing Specialist - 02/08/19 09:16:23 CM reviewed chart. RRS 38. Cm to room to met pt. Pt spouse in room. spouse stated that pt is off floor for Xray. Spouse stated that DCP is to discharge home with family. Possible hh if a need. CM will continue to follow for d/c needs. ALECIA GOMEZ RN-Crm Marketing Specialist - 02/07/19 09:05:36 Neva Cotto RN - 02/14/2019 15:08 EST Electronically signed by Lillian, [facility] Conversion Surgical Garment Assembler Cerner at 07/07/2022 9:52 PM CDT documented in this encounter Plan of Treatment Not on file documented as of this encounter Visit Diagnoses Not on filedocumented in this encounter
--- OUTSIDE RECORDS SUMMARY | 2024-09-11 10:47 | XMS_ITS | Encounter Summary ---
Author Organization [employer] Address [address] [place] [address] Care Team Providers Care Ventilation Equipment Tender Name Role Phone Unavailable Primary Care Provider Unavailabl e Encounter Details Date Type Department Care Team (Late st Contact Info) Description 02/05/2019 Transcribed Document [facility] [place] Family Medicine [address] [place] [address] ProviderYusuf MD [facility] [place] [place] [address] Social History Tobacco Use Types Packs/Day Years [...] - Historical ProviderMD - 02/05/2019 10:38 AM INVERTED BLOCK OPERATOR Education-(VTE) / (DVT) Entered On: 02/05/2019 17:17 EST Performed On: 02/05/2019 10:38 EST by SAVANNA VARGAS RN Teaching/Learning Assessment Barriers To Learning : None evident SAVANNA VARGAS RN - 02/05/2019 17:17 EST Education Topics: VTE/DVT Education Topics: VTE/DVT Activity Limitations/Expectations : Verbalizes understanding Medications : Verbalizes understanding Risk for developing a VTE : Verbalizes understanding Signs and symptoms of a VTE : Verbalizes understanding Treatment/prophylaxis for VTE : Verbalizes understanding SAVANNA VARGAS RN - 02/05/2019 17:17 EST documented in this encounter Plan of Treatment Not on file documented as of this encounter Visit Diagnoses Not on filedocumented in this encounter
--- OUTSIDE RECORDS SUMMARY | 2024-09-11 10:47 | XMS_ITS | Encounter Summary ---
Author Organization [employer] Address [address] [place] [address] Care Team Providers Care Turntable Engineer Name Role Phone Unavailable Primary Care Provider Unavailabl e Encounter Details Date Type Department Care Team (Late st Contact Info) Description 02/09/[address] [facility] [place] Family Medicine [address] [place] [address] ProviderYusuf MD [facility] [place], [place] [id number] Social History Tobacco Use Types Packs/Day Years Used Date Smoking Tobacco: Never Assessed Comments Unknown Sex and Gender Information Value Date Recorded Sex Assigned at Female 09/17/2021 5:37 PM CDT Legal Sex Female 5:37 PM CDT Gender Identity Female 09/17/2021 5:37 PM CDT Sexual Orientation Not on file documented as of this encounter Miscellaneous Notes * [employer]ner Conversion Note - Historical ProviderMD - 02/09/2019 5:08 PM COMMISSIONS SPECIALIST Patient: FRANKY SCOTT Age: 74 Years Sex: Female : 1945 Subjective Patient has gotten stronger again and patient tried to walk in PT again but according to nurses she got orthostatic when she stood up and thus she could not walk. Review of Systems Respiratory - patient has taken off NC as she no longer feels short of breath. Objective Vitals & Measurements T: 36.8 ??C TMIN: 36.4 ??C TMAX: 36.8 ??C HR: 70(Monitored) RR: 16 BP: 118/69 SpO2: 94% Physical Exam EOMI Speech - fluent Motor - 5/5 in both arms. 4+/5 in both legs. Reflexes - hyperreflexic in both legs. TESTS CK - 230 SUHAS - positive at 1: 160 Assessment/Plan Franky Scott is a 74-year-old female, [...] that the steroids had made her weaker. The patient is stronger today but became orthostatic in PT today. Her SUHAS has come back positive at 1: 160 . The differential for her myelopathy could include [...] on CSF studies. 3. Follow up on Lyme Disease antibodies. 4. If not cause can be found , consideration could be given to sending off MOG antibodies. 5. Follow up on NMO antibodies. 6. Pepcid given anticipated need for steroids. 7. Sliding scale insulin for now given anticipated need for steroids. 8. Given her positive SUHAS, will need to consider lupus in the differential and I have sent off an SUHAS screen. 9. Given her worsening weakness of February 07 I have stopped Lipitor . 10. Will order Ativan bid prn for anxiety. 11. Given my concern for an autoimmune process , I have recommended to patient that we again try steroids but this time at a lower dose of Solumedrol 125 mg IV every 12 hours. The patient is willing to try this. 12. Given her orthostasis today, will ask nurses to check orthostatics daily. If she remains orthostatic, Cozaar may need to be adjusted. I have spent over 35 minutes on this case today . Over half that time was spent counseling family about steroids again and about the positive SUHAS which could imply lupus. Medications Inpatient Biotin 1000mcg tablet, 1 Tab, [...]
--- OUTSIDE RECORDS SUMMARY | 2024-09-11 10:47 | XMS_ITS | Encounter Summary ---
Author Organization [employer] Address [address] [place] [address] Care Team Providers Care Fermenting Cellar Dropper Name Role Phone Unavailable Primary Care Provider Unavailabl e Encounter Details Date Type Department Care Team (Late st Contact Info) Description 02/14/2019 Transcribed Document [facility] [place] [address] [place] [address] ProviderYusuf MD [facility] [place] [address] Social History Tobacco Use Types Packs/Day Years Used Date Smoking Tobacco: Never Assessed Comments Unknown Sex and Gender Information Value Date Recorded Sex Assigned at Female 09/17/2021 5:37 PM CDT Legal Sex Female 5:37 PM CDT Gender Identity Female 09/17/2021 5:37 PM CDT Sexual Orientation Not on file documented as of this encounter Miscellaneous Notes * [employer]ner Conversion Note - Historical Provider, - 02/14/2019 11:30 AM LEAD DESIGNER Attempt to Treat, OT Entered On: 02/14/2019 11:55 EST Performed On: 02/14/2019 11:[address] KUNZ OTR/Leeann Attempt to Treat Unable to Treat Due To : Patient Unavailable Inability to Treat Comment : Attempted to see patient for OTx, patient is off floor for testing. Will attempt back as schedule permits. Notification : Milka CHEUNG SARAH C., OTR/L - 02/14/2019 11:54 EST documented in this encounter Plan of Treatment Not on file documented as of this encounter Visit Diagnoses Not on filedocumented in this encounter
--- OUTSIDE RECORDS SUMMARY | 2024-09-11 10:47 | XMS_ITS | Encounter Summary ---
Author Organization [employer] Address [address] [place] [address] Care Team Providers Care Paver Layer Name Role Phone Unavailable Primary Care Provider Unavailabl e Encounter Details Date Type Department Care Team (Late st Contact Info) Description 02/09/2019 Transcribed Document [facility] [place] Family Medicine [address] [place] [address] ProviderYusuf MD [address] [place], [place] [id number] Social History Tobacco Use Types Packs/Day Years [...] Conversion Note - Historical ProviderMD - 02/09/2019 5:00 PM ACOUSTICAL INSTALLER Chart Check - Review Order Profile Entered On: 02/09/2019 15:20 EST Performed On: 02/09/2019 17:00 EST by Yeimi Olmos RN Chart Check Powerplans Initiated/Discontinued as Appropriate : Yes All Active Orders Reviewed : Yes Yeimi Olmos RN - 02/09/2019 15:20 EST documented in this encounter Plan of Treatment Not on file documented as of this encounter Visit Diagnoses Not on filedocumented in this encounter
--- OUTSIDE RECORDS SUMMARY | 2024-09-11 10:47 | XMS_ITS | Patient Health Record ---
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 Coli Performing Lab: Notes/Report: E. Coli Urinalysis - Inhouse Reviewed date:07/10/2024 05:16:27 PM Interpretation: Performing Lab: Notes/Report: Color/Clarity yellow/cloudy Leuk 3+ Nitrite Pos Urobili 3.2 Protein 1+ pH 6.0 Blood 1+ Sp. Gr. 1.015 Ketone Neg Bili Neg Gluc Neg Urinalysis - Inhouse Reviewed date:08/24/2024 05:00:18 PM Interpretation: Performing Lab: Notes/Report: Color/Clarity yellow Leuk 1+ Nitrite pos Urobili 3.2 Protein trace pH 5.5 Blood 3+ Sp. Gr. 1.015 Ketone neg Bili neg Gluc neg Urinalysis - Inhouse Reviewed date:07/17/2024 08:11:10 AM Interpretation: Performing Lab: Notes/Report: Color/Clarity yellow/cloudy Leuk 2+ Nitrite Pos Urobili 3.2 Protein 3+ pH 6.0 Blood 2+ Sp. Gr. 1.020 Ketone Trace Bili Neg Gluc Neg Urinalysis - Inhouse Reviewed date:01/02/2024 04:09:19 PM Interpretation: Performing Lab: Notes/Report: Color/Clarity yellow/clear Leuk trace Nitrite neg Urobili 3.2 Protein neg pH 6.0 Blood neg Sp. Gr. 1.010 Ketone neg Bili neg Gluc neg TEN-UTI panel Reviewed date:01/11/2024 02:47:23 PM Interpretation:Abnormal Performing Lab: Notes/Report: Abnormal Urinalysis - Inhouse Reviewed date:03/10/2024 11:06:10 AM Interpretation: Performing Lab: Notes/Report: Color/Clarity orange Leuk 3+ Nitrite pos Urobili 16 Protein 2+ pH 5.0 Blood trace-intact Sp. Gr. 1.020 Ketone trace Bili neg Gluc trace P-Culture, Urine Reviewed date:03/13/2024 10:55:09 AM Interpretation:Klebsiella pneumoniae Performing Lab: Notes/Report: Test performed by [facility], [place] [address] [place] [address] , [address], [place] [address] Danilo Duran MD, Value Advisor CLIA: [id number] Specimen Source Urine - Void Culture, Urine See Below See Microbiol ogy Report Klebsiella pneumoniae ESBL 50,000-100,000 CFU/ml Klebsiella pneumoniae ESBL This isolate is a confirmed ESBL (Extended Spectrum Beta-Lactamase) film reproducer and should be considered clinically resistant to all penicillins, cephalosporins and aztreonam. Sensitivity Panel See Below ____ Organism K. pneum ESBL Antibiotic INTERP ____ Amikacin S Ampicillin R Aztreonam R Cefepime I Cefoxitin S Ceftazidime I Ceftriaxone R Cefuroxime R Ciprofloxacin R Ertapenem S Gentamicin S Imipenem S Levofloxacin I Meropenem S Nitrofurantoin I Piperacillin/Tazo S Tetracycline R Tobramycin S Trimeth/Sulfa R ___ S=SUSCEPTIBLE I=INTERMEDIATE R=RESISTANT Urinalysis - Inhouse Reviewed date:03/16/2024 03:47:47 PM Interpretation: Performing Lab: Notes/Report: Color/Clarity ark yellow Leuk 3+ Nitrite pos Urobili 3.2 Protein 2+ pH 6.0 Blood 1+ Sp. Gr. 1.020 Ketone eng Bili neg Gluc neg TEN-UTI panel Reviewed date:03/19/2024 04:07:38 PM Interpretation:Abnormal Performing Lab: Notes/Report: Abnormal Urinalysis - Inhouse Reviewed date:03/23/2024 03:23:26 PM Interpretation: Performing Lab: Notes/Report: Color/Clarity yellow/clear Leuk Neg Nitrite Neg Urobili 3.2 Protein Neg pH 5.5 Blood Neg Sp. Gr. 1.015 Ketone Neg Bili Neg Gluc Neg Urinalysis - Inhouse Reviewed date:05/18/2024 11:19:11 AM Interpretation: Performing Lab: Notes/Report: Color/Clarity yellow/clear Leuk Trace Nitrite Neg Urobili 3.2 Protein Neg pH 6.0 Blood Neg Sp. Gr. 1.015 Ketone Neg Bili Neg Gluc Neg TEN-UTI panel Reviewed date:05/21/2024 02:41:27 PM Interpretation:Negative Performing Lab: Notes/Report: Negative Urinalysis - Inhouse Reviewed date:05/29/2024 09:16:02 AM Interpretation: Performing Lab: Notes/Report: Color/Clarity yellow/cloudy Leuk 3+ Nitrite Neg Urobili 3.2 Protein Trace pH 5.5 Blood 1+ Sp. Gr. 1.015 Ketone Neg Bili Neg Gluc Neg TEN-UTI panel Reviewed date:05/30/2024 10:17:15 AM Interpretation:Klebsiella pneumoniae Performing Lab: Notes/Report: Klebsiella pneumoniae Urinalysis - Inhouse Reviewed date:06/12/2024 02:41:39 PM Interpretation: Performing Lab: Notes/Report: Color/Clarity yellow/cloudy Leuk 2+ Nitrite neg Urobili 3.2 Protein 1+ pH 5.5 Blood trace Sp. Gr. 1.015 Ketone neg Bili neg Gluc neg P-Culture, Urine Reviewed date:06/15/2024 01:26:54 PM Interpretation: Performing Lab: Notes/Report: Test performed by [facility], [address] , [address], [place] [address] Danilo Duran MD, Value Advisor CLIA: [id number] Specimen Source Urine - Void Culture, Urine See Below See Microbiol ogy Report Klebsiella pneumoniae ESBL 50,000-100,000 CFU/ml Klebsiella pneumoniae ESBL This isolate is a confirmed ESBL (Extended Spectrum Beta-Lactamase) film reproducer and should be considered clinically resistant to all penicillins, cephalosporins and aztreonam. Sensitivity Panel See Below ____ Organism K. pneum ESBL Antibiotic INTERP ____ Amikacin S Ampicillin R Aztreonam R Cefepime R Cefoxitin S Ceftazidime R Ceftriaxone R Cefuroxime R Ciprofloxacin R Ertapenem S Gentamicin S Imipenem S Levofloxacin I Meropenem S Nitrofurantoin R Piperacillin/Tazo S Tetracycline R Tobramycin S Trimeth/Sulfa R ___ S=SUSCEPTIBLE I=INTERMEDIATE R=RESISTANT P-Culture, Urine Reviewed date:08/28/2024 09:10:04 AM Interpretation:E. Coli Performing Lab: Notes/Report: Test performed by [facility], [address] , [place] [address] Danilo Duran MD, Value Advisor [facility]: [id number] Specimen Source Urine - Void Culture, Urine See Below See Microbiol ogy Report Escherichia coli ESBL 50,000-100,000 CFU /ml Escherichia coli ESBL This isolate is a confirmed ESBL (Extended Spectrum Beta-Lactamase) film reproducer and should be considered clinically resistant to [...] S Trimeth/Sulfa S ___ S=SUSCEPTIBLE I=INTERMEDIATE R=RESISTANT TEN-UTI panel Reviewed date:2024 11:51:57 AM Interpretation:Rejected. See 01/09/24 Order Performing Lab: Notes/Report: Rejected. See 01/09/24 Order CBC Fingerstick (in house) Reviewed date:12/09/2023 10:22:42 AM Interpretation: Performing Lab: Notes/Report: wbc 6.8 3.5 - 10 lym 14.4% 15 - 50 mid 3.7% 2 - 15 gran 81.9% 35 - 80 rbc 3.93 3.5 - 5.5 hgb 12.1 11.5 - 16.5 hct 37.2 35 - 55 mcv 94.6 75 - 100 mch 30.8 25 - 35 mchc 32.5 31 - 38 plat 200 100 - 400 TEN-UTI panel Reviewed date:12/12/2023 12:59:00 PM Interpretation:Negative Performing Lab: Notes/Report: Negative Covid test (in house) Reviewed date:12/09/2023 10:22:50 AM Interpretation: Performing Lab: Notes/Report: Result: Neg Urinalysis - Inhouse Reviewed date:12/09/2023 10:22:34 AM Interpretation: Performing Lab: Notes/Report: Color/Clarity yellow/cloudy Leuk 1+ Nitrite neg Urobili 3.2 Protein neg pH 5.5 Blood neg Sp. Gr. 1.015 Ketone neg Bili neg Gluc neg Reason For Referral Diagnosis 1 Neurogenic bladder ( N31.9) [facility] Referring Provider First Name Jensen Referring Provider Last Name Pamela Referring Provider [facility] isabel Referred Provider Adam Kingston Referred Provider Specialty Urology General Notes Ninfa Correa 05/18/19 11:15:42 AM > faxed referral to 's office Referral Priority Routine Reason [facility] Diagnosis 1 Chronic UTI (N39.0) Diagnosis 2 Urinary retention (R 33.9) Diagnosis 3 Urinary incontinence in female (R32) Diagnosis 4 Bladder spasms (N32. 89) [facility] Referring Provider First Name Jensen Referring Provider Last Name Pamela Referring Provider [facility] ctesau Referred Provider Specialty Urology General Notes Ninfa Correa 2024 10:53:56 AM > faxed referral to [facility] Referral Priority Routine Diagnosis 1 Urinary retention (R 33.9) Diagnosis 2 Chronic UTI (N39.0) Diagnosis 3 Other urinary incont inence (N39.498) Diagnosis 4 Neurogenic bladder ( N31.9) Referral Organization [facility] Referring Provider First Name Jensen Referring Provider Last Name Pamela Referring Provider [facility] Referred Provider Fifi Cartagena Notes Ninfa Correa 2024 08:45:29 AM > faxed referral to [facility] Urogynecology Referral Priority Routine Medications Medication SIG (Take, Route, Frequency, Duration) Notes Start Date End Date Status Folic Acid 1 MG 1 tablet Orally Once a day for 30 day(s) Active predniSONE 5 MG 1 tablet Orally Once a day for 30 day(s) Active DULoxetine HCl 60 MG Take 1 capsule by m outh once daily for 90 Active Methotrexate Sodium 2.5 MG as directed Orally Active Eliquis 5 MG Take 1 tablet by jessica th twice daily for 30 Active Mycophenolate Mofetil 250 MG 1 capsule Orally Twice a day for 30 day(s) Active Hyoscyamine Sulfate 0.125 MG 1 tablet as needed Orally every 4 hrs 07/18/2024 Active Methenamine Hippurate 1 GM 1 tablet Oral ly once daily Active Pantoprazole Sodium 40 MG 1 tablet 1/2 t o 1 hour before morning meal Orally Once a day for 30 day(s) 07/10/2024 Active Pregabalin 150 MG 1 cap(s) orally 2 ti mes a day for 90 days 09/03/2024 Active Mupirocin 2 % 1 application Enterprise Business 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 ally Twice a day 05/28/2024 Active Vitamin D3 25 MCG (1000 UT) 1 cap(s) ora lly once a day for 30 day(s) Active Claritin 10 MG 1 tab(s) orally once a day Active Fish Oil 100MG Activ e Bactrim DS 800-160 MG 1 tablet Orally tw ice a day for 7 days 08/28/2024 Active Losartan Potassium 25 MG Take 1 tablet b y mouth once daily for 90 Active Immunizations Vaccine Route Administration Date Status Comme nts COVID 19 Pfizer Unknown 05/24/2020 Administered COVID 19 Pfizer Unknown 06/12/2020 Administered COVID 19 Pfizer Unknown 01/28/2021 Administered Fluzone High Dose (65yr and older) Unknown 02/21/2017 Administered Fluzone High Dose (65yr and older) IM Intramuscular 01/14/2018 Administered Fluzone High Dose (65yr and older) IM Intramuscular 05/27/2019 Administered Fluzone High Dose (65yr and older) IM Intramuscular 11/19/2019 Administered Fluzone High Dose (65yr and older) IM Intramuscular 12/02/2020 Administered Fluzone High Dose (65yr and older) Unknown 01/29/2022 Administered PNEUMOVAX 23 VACCINE IM Intramuscular 06/29/2019 Administe red Prevnar (PCV13) IM Intramuscular 05/11/2018 Administered Tetanus Tdap-Adacel (over 7yrs) IM Intramuscular 05/11/2018 Administered xFlu shot- 6months-36 months of bal-QSIJ-QAMX-trivalent Unknown 02/08/2016 Administered xFluzone (6mos and older)-trivalent IM Intramuscular 02/05/2013 Administered xFluzone High Dose-private (65yr&older) IM Intramuscular 02/20/2014 Administered Problems Problem Type SNOMED Code ICD Code Onset Dates Problem Status W/U Status Risk Notes Problem 10700273 Vitamin D defici ency (E55.9) Active confirmed Problem 21618518 Essential hypertension (I10) Active confirmed Problem 29935354 Anxiety (F41.9) Active confirmed Problem 660737320 Urinary retentio n (R33.9) Active confirmed Problem Osteopenia (283379090) Osteopenia (M85.80) Active confirmed Problem 239355064 Neurogenic bladd er (N31.9) Active confirmed Problem 200381820 OAB (overactive bladder) (N32.81) Active confirmed Problem 825627035 Mixed hyperlipid emia (E78.2) Active confirmed Problem 22754910 Urge incontinenc e (N39.41) Active confirmed Problem 782852672811591 Full incontinenc e of feces (R15.9) Active confirmed Problem 230581465 Hx of colonic po lyps (Z86.010) Active confirmed Problem 490694820 Neuropathy (G62.9) Active confirmed Problem 53341232 Ataxia (R27.0) Active confirmed Problem 65597145 Claudication (I73.9) Active confirmed Problem 516912236 Chronic UTI (N39.0) Active confirmed Problem 454472761 BMI 31.0-31.9,ad ult (Z68.31) Active confirmed Problem 736850720 BMI 34.0-34.9,ad ult (Z68.34) Active confirmed Problem 766022504 Bladder spasms (N32.89) Active confirmed Problem 98143336 Urge incontinenc e of urine (N39.41) Active confirmed Problem 115474580 Raynaud's diseas e without gangrene (I73.00) Active confirmed Problem 6231198744213299 Arthritis of le ft knee (M17.12) Active confirmed Problem 354940583 Other urinary incontinence (N39.498) Active confirmed Problem 729048372 Seasonal allergi c rhinitis, unspecified trigger (J30.2) Active confirmed Problem 764195826 Cervical myelopa thy (G95.9) Active confirmed Problem 774220049 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) Active confirmed Problem 71060989 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 Problem 698840091 Gastroesophageal reflux disease, unspecified whether esophagitis present (K21.9) Active confirmed Problem 544949492 Stage 3 chronic kidney disease, unspecified whether stage 3a or 3b CKD (N18.30) Active confirmed Problem 966621595 Urinary incontin ence in female (R32) Active confirmed Vital Signs Heart Rate 93 /min 08/24/2024 Blood pressure diastolic 70 mm Hg 08/24/2024 Height 65 in 08/24/2024 Blood pressure systolic 130 mm Hg 08/24/2024 Weight 208.2 lbs 08/24/2024 BMI 34.64 kg/m2 08/24/2024 Encounters Encounter Location Date Provider Diagnosis [facility] [address] [place] [id number] 12/08/2023 [facility] [place] Acute cough R05.1 ; Urinary tract infection without hematuria, site unspecified N39.0 ; Heartburn R12 ; Colon cancer screening Z12.11 and Hx of colonic polyps Z86.010 [facility] [address] [place] [id number] 01/02/2024 [facility] [place] Pyuria R82.81 and Frequency of urination R35.0 [facility] [address] [place], [place] [id number] 2024 [facility] [place] [facility] [address] [place], [place] [id number] 03/10/2024 [facility] [place] Urinary tract infect ion without hematuria, site unspecified N39.0 [facility] [address] [place], [place] [id number] 03/16/2024 [facility] [place] Acute UTI N39.0 and Exposure to the flu Z20.828 [facility] [address] [place] [id number] 03/23/2024 [facility] [place] Recurrent UTI N39.0 and Urge incontinence N39.41 [facility] [address] [place], [place] [id number] 05/18/2024 [facility] [place] Urinary tract infect ion, site not specified N39.0 ; Unspecified Escherichia coli [E. coli] as the cause of diseases classified elsewhere B96.20 ; Neurogenic bladder N31.9 and Acute deep vein thrombosis (DVT) of left peroneal vein I82.452 [facility] [address] [facility] [address] [place], [place] [id number] 05/28/2024 [facility] [place] Chronic UTI N39.0 an d Open wound of right lower extremity, initial encounter S81.801A [facility] [address] [facility] [address] [place], [place] [id number] 06/11/2024 Maryanne Mal[place] UTI (lower urinary t ract infection) N39.0 [facility] [address] [facility] [address] [place], [place] [id number] 06/15/2024 [facility] [place] Cystitis, unspecifie d without hematuria N30.90 and Klebsiella pneumoniae [K. pneumoniae] as the cause of diseases classified elsewhere B96.1 [facility] [address] [facility] [address] [place], [place] [id number] 07/10/2024 [facility] [place] Acute cystitis witho ut hematuria N30.00 ; Gastroesophageal reflux disease, unspecified whether esophagitis present K21.9 and BMI 34.0-34.9,adult Z68.34 [facility] [address] [place] [id number] 07/16/2024 [facility] [place] Chronic UTI N39.0 [facility] [address] [facility] [address] [place], [place] [id number] 07/18/2024 [facility] [place] Chronic UTI N39.0 ; Urinary retention R33.9 ; Urinary incontinence in female R32 ; Bladder spasms N32.89 ; Dermatopolymyositis M33.90 and BMI 34.0-34.9,adult Z68.34 [facility] [address] [place], [place] [id number] 08/24/2024 [facility] [place] Pelvic pain R10.2 ; Chronic UTI N39.0 and Cook catheter in place Z92.89 [facility] [address] [place] [id number] 01/11/2024 [facility] [place] [facility] [address] [place] [id number] 01/18/2024 [facility] [place] [facility] [address] [place] [id number] 02/24/2024 [facility] [place] Neuropathy G62.9 [facility] [address] [place] [id number] 03/13/2024 [facility] [place] [facility] [address] [place] [id number] 03/19/2024 [facility] [place] [facility] [address] [place] [id number] 06/11/2024 [facility] [place] [facility] [address] [place] [id number] 07/16/2024 [facility] [place] [facility] [address] [place] [id number] 07/23/2024 [facility] [place] [facility] [address] [place], [place] [id number] 08/28/2024 [facility] [place] Chronic UTI N39.0 [facility] [address] [place], [place] [id number] 09/03/2024 [facility] [place] Neuropathy G62.9 [facility] [address] [place] [id number] 09/03/2024 [facility] [place] Screening for breast cancer Z12.39 and Screening for osteoporosis Z13.820 [facility] [address] [facility] [address] [place] [id number] 09/07/2024 [facility] [place] Urinary retention R3 3.9 ; Other urinary incontinence N39.498 and Chronic UTI N39.0 Assessments Encounter Date Diagnosis (ICD Code) Assessment Notes Treatment Notes Treatment Clinical Notes Section Notes 12/08/2023 Acute cough (ICD-10 - R05.1) 01/02/2024 Frequency of urinati on (ICD-10 - R35.0) 01/02/2024 Pyuria (ICD-10 - R82.81) 02/24/2024 Neuropathy (ICD-10 - G62.9) 03/10/2024 Urinary tract infection without hematuria, site unspecified (ICD-10 - N39.0) 03/16/2024 Acute UTI (ICD-10 - N39.0) Culture shows multi drug resistant bacterial UTI, will treat with Invanz 03/16/2024 Exposure to the flu (ICD-10 - Z20.828) 03/23/2024 Recurrent UTI (ICD-1 0 - N39.0) Resolved 03/23/2024 Urge incontinence (ICD-10 - N39.41) 12/08/2023 Urinary tract infection without hematuria, site unspecified (ICD-10 - N39.0) 05/28/2024 Chronic UTI (ICD-10 - N39.0) 05/28/2024 Open wound of right lower extremity, initial encounter (ICD-10 - S81.801A) 06/11/2024 UTI (lower urinary tract infection) (ICD-10 - N39.0) good water intake; UTI prevention discussed 06/15/2024 Klebsiella pneumonia e [K. pneumoniae] as the cause of diseases classified elsewhere (ICD-10 - B96.1) Culture shows multiple drug resistant organism 06/15/2024 Cystitis, unspecifie d without hematuria (ICD-10 - N30.90) 07/10/2024 Acute cystitis witho ut hematuria (ICD-10 - N30.00) 07/10/2024 Gastroesophageal reflux disease, unspecified whether esophagitis present (ICD-10 - K21.9) 07/16/2024 Chronic UTI (ICD-10 - N39.0) 07/18/2024 Urinary retention (ICD-10 - R33.9) 07/18/2024 Chronic UTI (ICD-10 - N39.0) 05/18/2024 Urinary tract infection, site not specified (ICD-10 - N39.0) 05/18/2024 Unspecified Escherichia coli [E. coli] as the cause of diseases classified elsewhere (ICD-10 - B96.20) 08/24/2024 Chronic UTI (ICD-10 - N39.0) Patient to follow up with [facility] urology next week 08/24/2024 Pelvic pain (ICD-10 - R10.2) 08/28/2024 Chronic UTI (ICD-10 - N39.0) 09/03/2024 Neuropathy (ICD-10 - G62.9) 09/03/2024 Screening for breast cancer (ICD-10 - Z12.39) 09/07/2024 Urinary retention (ICD-10 - R33.9) 09/07/2024 Other urinary incontinence (ICD-10 - N39.498) 09/07/2024 Chronic UTI (ICD-10 - N39.0) 09/03/2024 Screening for osteoporosis (ICD-10 - Z13.820) 08/24/[address] (ICD-10 - Z92.89) Cook catheter removed in office today. Patient had immediate pain relief. She will use catheters she has at home for intermittent bladder drainage 07/18/2024 Urinary incontinence in female (ICD-10 - R32) 07/10/2024 BMI 34.0-34.9,adult (ICD-10 - Z68.34) 05/18/2024 Neurogenic bladder (ICD-10 - N31.9) 12/08/2023 Heartburn (ICD-10 - R12) 12/08/2023 Colon cancer screeni ng (ICD-10 - Z12.11) 05/18/2024 Acute deep vein thrombosis (DVT) of left peroneal vein (ICD-10 - I82.452) 07/18/2024 Bladder spasms (ICD- 10 - N32.89) 07/18/2024 Dermatopolymyositis (ICD-10 - M33.90) 12/08/2023 Hx of colonic polyps (ICD-10 - Z86.010) 07/18/2024 BMI 34.0-34.9,adult (ICD-10 - Z68.34) Plan Of Treatment Pending Test Test Name Order Date Bone density 09/03/2024 colonoscopy 12/08/2023 Mammogram 09/03/2024 H-CBC 05/18/2024 H-BMP 05/18/2024 Insurance Providers Payer Name Payer Address Payer Phone Subscriber Number Group Number Insured Name Patient Relationship to Insured Coverage Start Date Coverage End Date MEDICARE PART B [address] [address] [place] [address] [id number] Kelli Scott Self - patient is the insured [email or web address] [address] [address] [place] [id number] Kelli Scott Self - patient is the insured Medications Administered Medication Instructions Date of Administration Dosage Notes Dexamethasone 11/02/2022 1 mL Medical (General) History Medical History History ICD Code 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, s/p embolization 2019 tinnitus, s/p ENT eval 2016 Hypertension hyperlipidemia Anxiety disorder Raynaud's disease Arthritis left knee urinary incontinence, followed by Urolog y Osteopenia, Dx: 2019 allergic rhinitis Chronic cystitis neuropathy, s/p Neurology evaluation 202 1 Colon polyps Dermatomyositis, Dx: 2022 DVT, left leg May 2024 Surgical History Surgery Date(Month/Year) Bladder Tuck 2009 Bladder Tuck 04/2012 Left Knee 12/08/18 Hospitalization History Reason Date(Month/Year) [facility] - Cervical myelopa thy 02/15-02/24/2009 [facility] - 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
--- OUTSIDE RECORDS SUMMARY | 2024-09-11 10:47 | XMS_ITS | Encounter Summary ---
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 o2 sat on room air 87%. 2L NC applied and o2 sat increased to 95%. Patient c/o feeling anxious and jittery. Pt started on IV steroids today. Discussed with MD. Order for 1mg IV halidol x1. Lesly Colindres RN - 02/08/2019 0:58 EST documented in this encounter Plan of Treatment Not on file documented as of this encounter Visit Diagnoses Not on filedocumented in this encounter
--- OUTSIDE RECORDS SUMMARY | 2024-09-11 10:48 | XMS_ITS | Encounter Summary ---
Author Organization [employer] Address [address] [place] [address] Care Team Providers Care District Engineer Name Role Phone Unavailable Primary Care Provider Unavailabl e Encounter Details Date Type Department Care Team (Late st Contact Info) Description 02/10/2019 Transcribed Document [facility] [address] [place] [address] Anne Peters MD [address] [place] [address] [address] [place] [address] Social History Tobacco Use Types Packs/Day Years [...] Conversion Note - Anne Peters MD - 02/10/2019 12:25 PM EST Patient: FRANKY DEWITT Age: 74 years Sex: Female : 1945 Associated Diagnoses: None Author: ANNE PETERS MD-INT Subjective Primary care physician Dr Bradley CRUZ Date of admission 02/05/2019 Date of discharge Referring physician Dr. Johan Sue neurology [place] [facility] Chief complaint bilateral upper and lower [...] HCTZ and reduce cozar as well 02/11-pt 1125-pt 1126-pt Past medical history is significant for prior [...] IV Push, Q12H Tylenol: 650 mg, Oral, Q4H, PRN: [...] Oral, Daily , Medications (18) Active Scheduled: (10) Biotin 1000mcg tablet 1 Tab, Oral, Daily enoxaparin 40 mg/0.4 mL inj 40 mg 0.4 mL, SubCutaneous, Daily famotidine 20 mg tab 20 mg 1 Tab, Oral, Daily insulin lispro 1 unit/0.01 [...] At risk for sleep apnea / IMO [id number] / Confirmed, Active Problems (3) At risk for sleep apnea HLD (hyperlipidemia) HTN (hypertension) Objective VS/Measurements Vitals Signs (last 24 hrs) Last Charted Minimum Maximum Temp 98 (FEB 10 06:00) 97.9 (FEB 09:59) 98.3 (FEB 09:03) Mon HR 95 (FEB 10:) 70 (FEB 09:03) 95 (FEB 10:) Resp Rate 18 (FEB 10:) 16 (FEB 09 14:03) 18 (FEB 09:59) SBP 112 (FEB 10:00) 112 (FEB 10:00) 125 (FEB 10:59) DBP 61 (FEB 10:) 61 (FEB 10:00) 74 (FEB 09:59) MAP 75 (FEB 10:00) 75 (FEB 10 09:00) 87 (FEB 09:59) SpO2 L 93 (FEB 10:00) L 93 (FEB 09:) 94 (FEB 10:59) General: No acute distress. Eye: Normal conjunctiva. HENT: Normocephalic. Neck: Supple, No jugular venous distention. Respiratory: Lungs are clear to auscultation, Respirations are non-labored, Breath sounds are equal. Cardiovascular: Normal rate, Regular rhythm, No gallop, S1+ S2 No S3 or S4 [place].. Gastrointestinal: Soft, Non-tender, Non-distended, Normal bowel sounds. [...] 7.7 (FEB 05) ALB 3.8 (FEB 05) No Radiology Results Found Impression and Plan Diagnosis -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 etiology-s/p LP now -loos of bowel-bladder function controlled -Pyuria-but doubt UTI-NO UTI I think -SUHAS positive -Essential hypertension-marginal BP-orthostatic hypotension -Hyperlipidemia -Recent left knee surgery -Anxiety and depression Plan reduced cozar, dc'd HCTZ, pt to puch fluids, watch bp closely neuro checks, extensive neuro w/u underway, Neurology consultation appreciated steroids now being added al low dose per per Dr Weiss-I d/w Dr [...]
--- OUTSIDE RECORDS SUMMARY | 2024-09-11 10:48 | XMS_ITS | Encounter Summary ---
Author Organization [employer] Address [address] [place] [address] Care Team Providers Care General Operations Agent Name Role Phone Unavailable Primary Care Provider Unavailabl e Encounter Details Date Type Department Care Team (Late st Contact Info) Description 02/06/2019 Transcribed Document [facility] [place] [address] [place] [address] ProviderYusuf MD [facility] [place] [address] Social History Tobacco Use Types Packs/Day Years Used Date Smoking Tobacco: Never Assessed Comments Unknown Sex and Gender Information Value Date Recorded Sex Assigned at Female 09/17/2021 5:37 PM CDT Legal Sex Female 5:37 PM CDT Gender Identity Female 09/17/2021 5:37 PM CDT Sexual Orientation Not on file documented as of this encounter Miscellaneous Notes * Cerner Conversion Note - Historical ProviderMD - 02/06/2019 3:39 PM TILLER MAN Patient: FRANKY SCOTT Age: 74 Years Sex: Female : 1945 Subjective Patient had MRIs of spine yesterday and tolerated. Her weakness is the same. Patient and nurse tell me that patient walked from her bed to bathroom today while holding on to objects for steadiness. Review of Systems - is wearing pads for incontinence. Objective Vitals & Measurements T: 36.6 ??C TMIN: 36.6 ??C TMAX: 36.8 ??C HR: 75(Monitored) RR: 20 BP: 144/91 SpO2: 96% Physical Exam EOMI Speech - fluent Motor - 4+/5 in both legs. TESTS MRI of cervical spine - a) LOng segment myelopathy with abnormal signal in the cord from the cervicomedullary junction to the C4-C5 level . MRI of thoracic spine - a) the thoracic cord has normal signal and contour with no abnormal enhancement. b) Accentuated kyphosis with mild leftward curvature of the thoracic spine. MRI of lumbar spine - a) Degenerative disc disease at L4-L5 and l5- S1 without critical stenosis. Assessment/Plan Franky Scott is a 74-year-old female, [...] cord. A dedicated MRI of spine done last night confirms abnormal signal in the cord from cervicomedullary junction to the C4-C5 level . The differential for her myelopathy could [...] time, I would recommend the followin. To continue holding the subq heparin for a lumbar puncture. 2. SCDs for DVT prevention. 3. I would recommend a lumbar puncture. 4. Check an RPR. 5. Folate level. 6. Copper level. 7. SSA and SSB antibodies. 8. Antinuclear antibody. 9. Lyme disease antibodies. 10. An AUSTEN level. 11. If not cause can be found , consideration could be given to sending off MOG antibodies. 12. NMO antibodies. 13. Sed rate and C-reactive protein. 14. HIV antibody. 15. A plain chest X ray . I have had a long discussion with the patient today and told her that I do not know the cause of her myelopathy and that there are multiple potential causes. I told the patient that I would recommend a lumbar puncture which can cause back pain, infection,bleeding and sometimes nerve injury . She understands and agrees to a lumbar puncture . I , therefore , have ordered a lumbar puncture for today and have asked for the following tests : a) Cell count, AUSTEN level , glucose , protein , meningitis panel , bacterial culture, VDRL, Myelin Basic Protein and oligoclonal bands, Cytology , NMO antibodies, fungal cultures , AFB culture and smear. I have spent over 35 minutes on this case today . Over half that time was spent reviewing MRIs and counseling patient . Myelopathy Weakness, Weakness Orders: SUHAS Antinuclear Ab Titer by IFA, Sendout Angiotensin Converting Enzyme, CSF, Sendout Angiotensin-Converting Enzyme, Sendout Aquaporin-4 Receptor Antibody, Sendout Cell Count CSF w/ Diff If Ind Cell Count CSF w/ Diff If Ind Copper, Sendout CR Chest 2 Vws CR Fluoro GD Lumbar Punct Dx Culture AFB and Stain Culture CSF and Stain Culture Fungus CYTOLOGY REPORT HIV 1/2 AG/AB COMBO Lyme Screen/Westrn Blot if Ind, Sendout Meningitis/Encephalitis Panel Myelin Basic Protein, Sendout Pathology Non-Carton Making Machinist Request RPR Rapid Plasma Reagin Sequential Compression Device Sjogrens Antibodies, Sendout VDRL, CSF, Sendout VTE Prophylaxis - Medical Sequential Compression Device Start: 02/05/19 17:42:00 EST, Bilateral, Continuous Order (MAREK BURRELL) Medications Inpatient Biotin 1000mcg tablet, 1 Tab, Oral, Daily Coenzyme Q10, 100 mg= 2 Cap, Oral, Daily Colace, 100 mg= 1 Cap, Oral, BID, PRN Cozaar, 25 mg= 1 Tab, Oral, Daily Fish Oil, 1000 mg= 1 Cap, Oral, Daily hydrALAZINE, 5 mg= 0.25 mL, IV Push, Q4H, PRN hydroCHLOROthiazide, 12.5 mg= 0.5 Tab, Oral, Daily Lipitor, 10 mg= 1 Tab, Oral, Daily LORazepam, 1 mg= 0.5 mL, IV Push, Q4H, PRN MiraLax, 17 Gram= 1 Packet, Oral, Daily, PRN morphine, 2 mg= 1 mL, IV Push, Q2H, PRN potassium chloride 10 mEq oral tablet, extended release, 1 Tab, Oral, Daily Tylenol, 650 mg= 2 Tab, Oral, Q4H, PRN Zofran, 4 mg= 2 mL, IV Push, Q4H, PRN Zoloft, 50 mg= 1 Tab, Oral, Daily Electronically signed by Lillian, [facility] Conversion Motorboat Mechanic Inboard Cerner at 07/07/2022 9:59 PM CDT documented in this encounter Plan of Treatment Not on file documented as of this encounter Visit Diagnoses Not on filedocumented in this encounter
--- OUTSIDE RECORDS SUMMARY | 2024-09-11 10:48 | XMS_ITS | Encounter Summary ---
Author Organization [employer] Address [address] [place] [address] Care Team Providers Care Network Cabler Name Role Phone Unavailable Primary Care Provider Unavailabl e Encounter Details Date Type Department Care Team (Late st Contact Info) Description 02/05/2019 Transcribed Document [facility] [place] [address] [place] [address] ProviderYusuf MD [facility] [place] [address] Social History Tobacco Use Types [...] - Historical ProviderMD - 02/05/2019 10:39 AM MONKEY TRAINER Swallow Evaluation Entered On: 02/05/2019 12:20 EST Performed On: 02/05/2019 12:16 EST by KENNA KIM PLACEMENT MANAGER General Information Visit Type, PLACEMENT MANAGER : Initial evaluation KENNA KIM SLP - 02/05/2019 12:16 EST Patient Orders : Consult to Speech Language Pathology for Swallow Eval -111 Start: 02/05/19 10:39:00 EST, Routine, For Swallow Eval and Treat - BASHIR RAYMOND MD-INT Admission Date : Admission Date/Time: 02/05/19 10:21:00 KENNA KIM, ASHER - 02/05/2019 12:21 EST Medical Chart Reviewed, PLACEMENT MANAGER : Yes KENNA KIM SLP - 02/05/2019 12:16 EST Personal Devices : Personal Devices Glasses Assistive Devices : Assistive Devices No Devices Recorded Active Diagnoses : 02/05/2019 12:00 Disease of spinal cord, unspecified KENNA KIM SLP - 02/05/2019 12:21 EST Therapy Diagnosis, PLACEMENT MANAGER : normal oropharyngeal skills Previous Swallow Precautions : no previous ST in EMR Diet/Intake Prior to Current Admission : reg/thin Diet/Intake During Current Admission : reg/thin Intubation Comment, PLACEMENT MANAGER : n/a KENNA KIM SLP - 02/05/2019 12:16 EST Vital Signs RTF : Vitals Temp BP Pulse RR SpO2 FIO2 Date Wt(kg) Wt(lb) 02/05 10:57 ---- 126/77 --- 16 99 --- 02/05 79.1 174 24 Hr Tmax: No Data Available 36 Hr Tmax: No Data Available Vital Signs are the last 5 in the past 48 hours. Weights display the last 5 within 7 days. Initial Wt: 02/05 79.1 kg 174 lb KENNA KIM SLP - 02/05/2019 12:21 EST Respiratory Assessment Comment : room air KENNA KIM SLP - 02/05/2019 12:16 EST General Status Patient Received Status, PLACEMENT MANAGER : Long sitting in bed Patient Left Status, PLACEMENT MANAGER : Long sitting in bed KENNA KIM SLP - 02/05/2019 12:16 EST Pain Assessment Pain Scaled Used : FACES Pain Score Pre-Intervention : 1 KENNA KIM SLP - 02/05/2019 12:16 EST Image 1 - Images currently included in the form version of this document have not been included in the text rendition version of the form. Oral Mechanism Dysarthria : No Resonance Types : Appropriate Oral Mechanism for Daily Living : Intact PLACEMENT MANAGER Cough : Strong Facial Appearance: : Symmetrical Labial Appearance : Symmetrical Labial Function : All function intact Dental/Orthodontia : Teeth, own Condition of Dentition : Intact Lingual Appearance : Symmetrical Lingual Function : All function intact Soft Palate (Velum) Appearance : Other: deviation to the L. Pt is aware and states she has seen ENT in the past KENNA KIM SLP - 02/05/2019 12:16 EST Bedside Swallow Swallow Outcome BS Swallow : Intact Head Control BS Swallow : Neutral head position Presentation Style BS Swallow : Clinician Swallow Position BS Swallow : Upright 90 degrees Trunk Control BS Swallow : Upright centered position Consistencies Trialed BS Swallow : Ice chips, Thin by straw, Pureed, Regular solids KENNA KIM SLP - 02/05/2019 12:16 EST Swallow Impressions Bedside Swallow Overall Impressions : Per MD notes, pt is a 74-year-old female sent to the hospital as a direct admit per Dr. Johan Sue. Pt has had 3 week hx of bilateral upper and lower extremity weakness, numbness, and tingling with bowel and bladder control loss. MD note goes on to states that Pt had MRI of the brain on Tuesday which identified abnormal signal involving upper cervical cord along with thoracic cord. After reviewing these records, Dr. Brunson sent her to [facility]. ST is asked to see for dysphagia. Pt's uvula deviates to L with elevation. Pt states that she has seen ENT in the past for this, her sister's does the same. She reports no dx from ENT, etiology, complication, or f/u indicated. Pt presents without overt oral or pharyngeal dysphagia patterns. She is able to self-feed and appears safe to continue current diet. No further dysphagia tx indicated. No overt communication deficits observed in conversation. Pt and spouse report that speech/language/cognition is entirely at baseline, and upper and lower extremity weakness is primary complaint. No further ST indicated and will sign off. Discussed briefly with RN (Josie). KENNA KIM SLP - 02/05/2019 12:21 EST Impressions, BS Swallow : No evidence of dysphagia present Swallowing Outcome Measures : Functional Oral Intake Scale (FOIS) Functional Oral Intake Scale (FOIS) : Level VII KENNA KIM SLP - 02/05/2019 12:16 EST Swallow Recommendations Recommended Diet Type, SwRec : Regular Recommended Liquid Diet, SwRec : Thin Swallow Position, SwRec : Upright 90 degrees Recommended Med Present, SwRec : As per nursing KENNA KIM SLP - 02/05/2019 12:21 EST Therapy Indication Assessment PLACEMENT MANAGER Indicated : No PLACEMENT MANAGER Not Indicated : At prior level of function KENNA KIM SLP - 02/05/2019 12:21 EST Education Barriers To Learning : None evident Individuals Taught : Patient, Spouse KENNA KIM SLP - 02/05/2019 12:21 EST PLACEMENT MANAGER Education Assessment Grid 1 Aspiration : Verbalizes understanding Diet Recommendation : Verbalizes understanding KENNA KIM SLP - 02/05/2019 12:[address] [place] PLACEMENT MANAGER Charges Evaluation Swallowing Function : 1 KENNA KIM SLP - 02/05/2019 12:21 EST Anticipated Discharge Needs, PLACEMENT MANAGER Anticipated Discharge to : Home, independently, Home, with home health Recommend Continued Therapy at Discharge : No KENNA KIM, PLACEMENT MANAGER - 02/05/2019 12:21 EST Electronically signed by Lillian [facility] Conversion Chain Builder Loom Control Cerner at 07/07/2022 10:01 PM CDT documented in this encounter Plan of Treatment Not on file documented as of this encounter Visit Diagnoses Not on filedocumented in this encounter
--- OUTSIDE RECORDS SUMMARY | 2024-09-11 10:48 | XMS_ITS | Encounter Summary ---
Author Organization [employer] Address [address] [place] [address] Care Team Providers Care Utilization Supervisor Name Role Phone Unavailable Primary Care Provider Unavailabl e Encounter Details Date Type Department Care Team (Late st Contact Info) Description 02/06/2019 Transcribed Document [facility] [place] Medicine [address] [place] [address] ProviderYusuf MD [address] [place] [address] Social History Tobacco Use Types Packs/Day [...] Conversion Note - Historical ProviderMD - 02/06/2019 3:18 PM PROCUREMENT ASSISTANT Treatment Intervention, OT Entered On: 02/08/2019 13:07 EST Performed On: 02/08/2019 11:[address] FRENCH COTA General Information, OT Visit Type, OT : Treatment Note Patient Orders : Order Date Order Ordering 02/05/2019 10:38 OT Evaluation and Treatment Ordered By: BASHIR RAYMOND MD-INT 02/06/2019 15:18 OT Additional Treatment Ordered By: Active Diagnoses : 02/05/2019 12:00 Disease of spinal cord, unspecified Admission Date : 02/05/2019 10:21 Co-treated by, OT : executive personal assistant (DELIVERY ENGINEER) Personal Devices : Personal Devices Glasses Assistive Devices : Assistive Devices No Devices Recorded Precautions in Place : Fall prevention measures RD FRENCH COTA - 02/08/2019 12:59 EST General Status Patient Received Status : Supine in bed Treatment Start Time : 02/08/2019 10:46 EST Patient Left Status : Supine in bed, RN/PCT informed, Family/Visitors at bedside, Communication board completed, All needs met and within reach Treatment End Time : 02/08/2019 11:09 EST Treatment Time : 23 Minute(s) RD FRENCH COTA - 02/08/2019 12:59 EST Functional Mobility Mobility Grid Bed Roll Left : Rehab Total assistance Bed Scooting : Rehab Total assistance Supine to Sit : Rehab Total assistance Sit to Supine : Rehab Total assistance RD FRENCH COTA - 02/08/2019 12:59 EST Plan of Care, OT OT Tx Plan/Goals Established w Patient : Yes RD FRENCH COTA - 02/08/2019 12:59 EST Senior Care Goals, OT Grooming LTG Grid Goal #1 Activity : Grooming Assist : Independent, modified Date to Meet : 02/20/2019 EST Goal Status : Initial goal Comment : Standing up at sink RD FRENCH COTA - 02/08/2019 12:59 EST Bathing LTG Grid Goal #1 Activity : Bathing Assist : Independent, modified Date to Meet : 02/20/2019 EST Goal Status : Initial goal RD FRECNH COTA - 02/08/2019 12:59 EST Dressing, Lower Body LTG Grid Goal #1 Activity : Dressing, Lower Body Assist : Independent, modified Date to Meet : 02/20/2019 EST Goal Status : Initial goal RD FRENCH COTA - 02/08/2019 12:59 EST Toileting LTG Grid Goal #1 Activity : Toileting Assist : Independent, modified Date to Meet : 02/20/2019 EST Goal Status : Initial goal RD FRENCH COTA - 02/08/2019 12:59 EST Toilet Transfer LTG Grid Goal #1 Activity : Toilet Transfer, Ambulatory Assist : Independent, modified Date to Meet : 02/20/2019 EST Goal Status : Initial goal RD FRENCH CURRAN - 02/08/2019 12:59 EST Treatment Note Subjective Comment : JONATAN Thayer okd session Patient's Response to Treatment : Client has had a significant decline Additional Objective Information : Client supine in bed. Family present. Per PT note on 02/07, client was SUP with bed mobility and ambulate 400ft. Today client is TA to EOB. TA for bal on EOB. No movement to BLEs. Very slight movement to BUEs. MMT 1/5. Client states that her voice has also weakend and has trouble speaking. Client BP 155/83 on O2 sat 93% on 3lpm nc. TA back to supine and to pull up in bed. Spoke with JONATAN Thayer about decline. Left in supine. Client states she can no longer push call light. Family stated that they will be with her at all times if she needs anything. Assessment : no progress noted this date Plan for Treatment : continue with POC MANOLO RDMAGDY - 02/08/2019 12:59 EST Pain Assessment Pain Scaled Used : 0-10 Pain scale Pain Score Pre-Intervention : [address] FRENCHMAGDY 02/08/2019 12:59 EST Image 1 - Images currently included in the form version of this document have not been included in the text rendition version of the form. Anticipated Discharge Needs, OT/PT Anticipated Discharge to : Unit, rehabilitation RD FRENCHMAGDY - 02/08/2019 12:59 EST Gower OT Charges OT Ther Activities Ea 15 Min : 2 RD FRENCHMAGDY - 02/08/2019 12:59 EST documented in this encounter Plan of Treatment Not on file documented as of this encounter Visit Diagnoses Not on filedocumented in this encounter
--- OUTSIDE RECORDS SUMMARY | 2024-09-11 10:48 | XMS_ITS | Encounter Summary ---
Author Organization [employer] Address [address] [place] [address] Care Team Providers Care Affirmative Action Specialist Name Role Phone Unavailable Primary Care Provider Unavailabl e Encounter Details Date Type Department Care Team (Late st Contact Info) Description 02/10/2019 Transcribed Document [facility] [place] [address] [place] [address] ProviderYusuf MD [facility] [place] [address] Social History Tobacco Use Types Packs/Day Years Used Date Smoking Tobacco: Never Assessed Comments Unknown Sex and Gender Information Value Date Recorded Sex Assigned at Female 09/17/2021 5:37 PM CDT Legal Sex Female 5:37 PM CDT Gender Identity Female 09/17/2021 5:37 PM CDT Sexual Orientation Not on file documented as of this encounter Miscellaneous Notes * Cerner Conversion Note - Historical ProviderMD - 02/10/2019 2:00 AM CELL FEED DEPARTMENT SUPERVISOR Grease Refiner Operator Details Entered On: 02/10/2019 2:04 EST Performed On: 02/10/2019 2:00 EST by Ruth Mueller RN-Resource Order Details Transport Mode Order Detail : Wheelchair Isolation Precautions Order Detail : Standard Precautions Order Detail : N/A IV Order Detail : 1 Oxygen Order Detail : 1 Nurse Collect Order Detail : 0 Lift/Transfer : Minimal Central Line Order Detail : No Room Service : Appropriate Arterial Line : No Ruth Mueller, RN-Resource - 02/10/2019 2:04 EST documented in this encounter Plan of Treatment Not on file documented as of this encounter Visit Diagnoses Not on filedocumented in this encounter
--- OUTSIDE RECORDS SUMMARY | 2024-09-11 10:48 | XMS_ITS | Encounter Summary ---
Author Organization [employer] Address [address] [place] [address] Care Team Providers Care Farmworker General Name Role Phone Unavailable Primary Care Provider Unavailabl e Encounter Details Date Type Department Care Team (Late st Contact Info) Description 02/09/2019 Transcribed Document [facility] [address] [place] [address] Anne Peters MD [address] [place] [address] [address] [place] [address] Social History Tobacco Use Types Packs/Day Years [...] Conversion Note - Anne Peters MD - 02/09/2019 12:12 PM EST Patient: FRANKY DEWITT Age: 74 years Sex: Female : 1945 Associated Diagnoses: None Author: ANNE PETERS MD-INT Subjective Primary care physician Dr Bradley CRUZ Date of admission 02/05/2019 Date of discharge Referring physician Dr. Johan Sue neurology [facility] Chief complaint bilateral upper and lower [...] bedside, neuro service on board here 02/10-pt 02/11-pt Past medical history is significant [...] BID, PRN: Constipation Cozaar: 25 mg, Oral, BID Fish Oil: 1,000 mg, Oral, Daily LORazepam: [...] mg tab 25 mg 1 Tab, Oral, BID omega-3 fish oil 1,000 mg cap 1,000 [...] At risk for sleep apnea / IMO [id number] / Confirmed, Active Problems (3) At risk for sleep apnea HLD (hyperlipidemia) HTN (hypertension) Objective VS/Measurements Vitals Signs (last 24 hrs) Last Charted Minimum Maximum Temp 97.7 (FEB 09 05:18) 97.7 (FEB 09 05:18) 98.1 (FEB 08 22:45) Mon HR 81 (FEB 09 08:42) 75 (FEB 09 03:00) 93 (FEB 08 18:30) Resp Rate 16 (FEB 09 08:42) 16 (FEB 08 13:43) 18 (FEB 09 03:00) SBP 111 (FEB 09 08:42) 111 (FEB 09 08:42) H 151 (FEB 08 22:45) DBP 69 (FEB 09 08:42) 68 (FEB 08 18:30) H 92 (FEB 08 22:45) MAP 82 (FEB 09 08:42) 82 (FEB 09 08:42) 108 (FEB 08 22:45) SpO2 94 (FEB 09 08:42) 94 (FEB 08 20:20) 97 (FEB 09 05:18) General: No acute distress. Eye: Normal conjunctiva. HENT: Normocephalic. Neck: Supple, No jugular venous distention. Respiratory: Lungs are clear to auscultation, Respirations are non-labored, Breath sounds are equal. Cardiovascular: Normal rate, Regular rhythm, No gallop, S1+ S2 No S3 or S4 [place].. Gastrointestinal: Soft, Non-tender, Non-distended, Normal bowel sounds. [...]
--- OUTSIDE RECORDS SUMMARY | 2024-09-11 10:48 | XMS_ITS | Encounter Summary ---
Author Organization [employer] Address [address] [place] [address] Care Team Providers Care Teacher Kindergarten Name Role Phone Unavailable Primary Care Provider Unavailabl e Encounter Details Date Type Department Care Team (Late st Contact Info) Description 02/10/2019 Transcribed Document [facility] [place] Family Medicine [address] [place] [address] ProviderYusuf MD [facility] [address] Social History Tobacco Use Types [...] Conversion Note - Historical ProviderMD - 02/10/2019 5:38 PM SURFACE LAY OUT TECHNICIAN Patient: FRANKY DEWITT Age: 74 Years Sex: Female : 1945 Subjective strength improving, took a few steps today, no new sx Review of Systems no change except as in Subjective Physical Exam Eyes, ENT-negative Pulmonary clear Cardiac without murmur Mental Status: normal Orientation to time place person, Attention, Speech naming, repetition, spontaneous, Language, memory recent and remote, Fund of knowledge Cranial Nerves: II through XII intact and symmetric Motor: Strength 5/5 bilateral UE, 4+/5 LE increased tone and mass normal Sensory: Normal to light touch, pain, proprioception Reflexes symmetric 4=, toes up Cerebellar: Normal FF movements, no abnormal movements Gait: not tested due to pt condition Psychiatric: negative Musculoskeletal: negative Lab SUHAS 1:160 homogenous and speckled CFS WBC 4, Prot elevated Studies personally reviewed Imaging MRI Cervical diffuse multilevel abn with mild enhancement Studies personally reviewed Assessment 74yo female pt of Dr. Bales, with Transverse Myelitis Cervical with a positive SUHAS 1:160 homogenous and speckled. She was able to move a few steps, her arms and legs are moving better and she is tolerating steroids well. Her sees Dr. Pascual, I suggested he contact that office and make him aware of his 's condition. She is responding to steroids and will continue current regiment. Further recommendations will be based on test results and clinical course. Pending AP4 pt new to me, I have spent over 35 minutes on this case today. Over half of that time was spent reviewing the chart, discussion with care givers, and counseling. documented in this encounter Plan of Treatment Not on file documented as of this encounter Visit Diagnoses Not on filedocumented in this encounter
--- OUTSIDE RECORDS SUMMARY | 2024-09-11 10:48 | XMS_ITS | Encounter Summary ---
Author Organization [employer] Address [address] [place] [address] Care Team Providers Care Tech Writer Name Role Phone Unavailable Primary Care Provider Unavailabl e Encounter Details Date Type Department Care Team (Late st Contact Info) Description 02/11/2019 Transcribed Document [facility] [place] [address] [place] [address] ProviderYusuf MD [facility] [place], [place] [address] Social History Tobacco Use Types Packs/Day Years Used Date Smoking Tobacco: Never Assessed Comments Unknown Sex and Gender Information Value Date Recorded Sex Assigned at Female 09/17/2021 5:37 PM CDT Legal Sex Female 5:37 PM CDT Gender Identity Female 09/17/2021 5:37 PM CDT Sexual Orientation Not on file documented as of this encounter Miscellaneous Notes * Cerner Conversion Note - Historical ProviderMD - 02/11/2019 10:44 AM SHREDDED FILLER CIGAR MAKER MACHINE Patient: FRANKY DEWITT Age: 74 Years Sex: Female : 1945 Subjective feeling like she did after first steroid administration, arms heavy, legs tingling, took a few steps yesterday and seemed to be improving Review of Systems no change except as [...] female pt of Dr. Bales, with Transverse Myelopathy Cervical with a positive SUHAS 1:160 homogenous and speckled. She was improving, today has some recurring sx associated with her first steroid administration. Dr. Bales note states she would be put on lower dose steroid, she was still on the higher dose. I will institute IVIG and stop the steroids. I will repeat comp profile/CBC. Her sees Dr. Allen, I will place a consult for Rheumatology as she will need this follow up after and difficult treatment considerations. Further recommendations will be based on test results and clinical course. Pending AP4, lupus anticoagulant, antiphospholipid screen, CBC, Comp profile, consult Abass pt new to me, I have spent over 35 minutes on this case today. Over half of that time was spent reviewing the chart, discussion with care givers, and counseling. documented in this encounter Plan of Treatment Not on file documented as of this encounter Visit Diagnoses Not on filedocumented in this encounter
--- OUTSIDE RECORDS SUMMARY | 2024-09-11 10:48 | XMS_ITS | Encounter Summary ---
Author Organization [employer] Address [address] [place] [address] Care Team Providers Care Shell Freezing Machine Operator Name Role Phone Unavailable Primary Care Provider Unavailabl e Encounter Details Date Type Department Care Team (Late st Contact Info) Description 02/06/2019 Transcribed Document [facility] [place] Family Medicine [address] [place] [address] ProviderYusuf MD [facility] [place], [place] [id number] Social History Tobacco Use Types Packs/Day Years [...] Conversion Note - Historical ProviderMD - 02/06/2019 9:20 AM SOIL SPECIALIST UM Authorization Entered On: 02/06/2019 9:20 EST Performed On: 02/06/2019 9:20 EST by VALENTINA GOODE Rn-Utilization Review Primary Insurance Authorization Authorization and Policy Numbers : Insurance 1 Health Plan: MEDICARE Policy Number: [id number] Authorization Number: Insurance 2 Health Plan: [employer] [place] Policy Number: [id number] Authorization Number: Insurance Primary Name : MEDICARE Policy Number: [id number] [employer] [place] Policy Number: [id number] Historical Authorization Comments-Primary : No Authorization Comments Found VALENTINA GOODE Rn-Utilization Review - 02/06/2019 9:20 EST Electronically signed by Lillian [facility] Conversion Heel Buffer Cerner at 07/07/2022 9:58 PM CDT documented in this encounter Plan of Treatment Not on file documented as of this encounter Visit Diagnoses Not on filedocumented in this encounter
--- OUTSIDE RECORDS SUMMARY | 2024-09-11 10:48 | XMS_ITS | Encounter Summary ---
Author Organization [employer] Address [address] [place] [address] Care Team Providers Care Manager Respiratory Name Role Phone Unavailable Primary Care Provider Unavailabl e Encounter Details Date Type Department Care Team (Late st Contact Info) Description 02/06/2019 Transcribed Document [facility] [place] [address] [place] [address] ProviderYusuf MD [address] [place], [place] [address] Social History Tobacco Use Types Packs/Day Years [...] Conversion Note - Historical ProviderMD - 02/06/2019 5:00 PM PANTRY WORKER Chart Check - Review Order Profile Entered On: 02/06/2019 15:39 EST Performed On: 02/06/2019 17:00 EST by ROLY MEDEIROS RN Chart Check Powerplans Initiated/Discontinued as Appropriate : Yes All Active Orders Reviewed : Yes ROLY MEDEIROS RN - 02/06/2019 15:38 EST documented in this encounter Plan of Treatment Not on file documented as of this encounter Visit Diagnoses Not on filedocumented in this encounter
--- OUTSIDE RECORDS SUMMARY | 2024-09-11 10:48 | XMS_ITS | Encounter Summary ---
Author Organization [employer] Address [address] [place] [address] Care Team Providers Care Parts Facilitator Name Role Phone Unavailable Primary Care Provider Unavailabl e Encounter Details Date Type Department Care Team (Late st Contact Info) Description 02/06/2019 Transcribed Document [facility] [address] [place] [address] Anne Peters MD [address] [place] [address] [address] [place] [address] Social History Tobacco Use Types Packs/Day Years [...] Conversion Note - Anne Peters MD - 02/06/2019 10:39 AM EST Patient: FRANKY DEWITT Age: 74 years Sex: Female : 1945 Associated Diagnoses: None Author: ANNE PETERS MD-INT Subjective Primary care physician Dr Bradley CRUZ Date of admission 02/05/2019 Date of discharge Referring physician Dr. Johan Sue neurology [facility] Chief complaint bilateral upper and lower [...] and speech therapy consultation Procedures and workup -MRI cervical thoracic and lumbar spine Long [...] per Dr weiss, no fam around 02/07-pt 02/08-pt Past medical history is significant for [...] mg, IV Push, Q4H, PRN: Nausea Zoloft: 50 mg, Oral, Daily hydrALAZINE: 5 mg, IV [...] = 1 Tab, Oral, Daily , Medications (16) Active Scheduled: (9) atorvastatin 10 mg tab 10 mg 1 Tab, Oral, Daily Biotin 1000mcg tablet 1 Tab, Oral, Daily famotidine 20 mg tab 20 mg 1 Tab, Oral, Q12H hydrochlorothiazide 25 mg tab 12.5 mg 0.5 Tab, Oral, Daily losartan 25 mg tab 25 mg 1 Tab, Oral, Daily omega-3 fish oil 1,000 mg cap 1,000 mg 1 Cap, Oral, Daily potassium chloride CR 10 mEq tab 1 Tab, Oral, Daily sertraline 50 mg tab 50 mg 1 Tab, Oral, Daily ubiquinone 50 [...] At risk for sleep apnea / IMO [id number] / Confirmed, Active Problems (3) At risk for sleep apnea HLD (hyperlipidemia) HTN (hypertension) Objective VS/Measurements Vitals Signs (last 24 hrs) Last Charted Minimum Maximum Temp 98.1 (FEB 06 08:00) 97.4 (FEB 05 10:57) 98.1 (FEB 05 18:00) Mon HR 75 (FEB 06 08:00) 68 (FEB 05 18:00) 75 (FEB 06 08:00) Resp Rate 20 (FEB 06 08:00) 16 (FEB 05 10:57) 20 (FEB 06 08:00) SBP H 150 (FEB 06 08:00) 126 (FEB 05 10:57) H 157 (FEB 05 18:00) DBP 73 (FEB 06 08:00) 73 (FEB 06 08:00) H 93 (FEB 06 06:16) MAP 95 (FEB 06 08:00) 94 (FEB 05 10:57) 113 (FEB 06 06:16) SpO2 95 (FEB 06 08:00) L 92 (FEB 06 02:13) 99 (FEB 05 10:57) General: No acute distress. Eye: Normal conjunctiva. HENT: Normocephalic. Neck: Supple, No jugular venous distention. Respiratory: Lungs are clear to auscultation, Respirations are non-labored, Breath sounds are equal. Cardiovascular: Normal rate, Regular rhythm, No gallop, S1+ S2 No S3 or S4 Freeborn.. Gastrointestinal: Soft, Non-tender, Non-distended, Normal bowel sounds. Genitourinary: No costovertebral angle tenderness. Lymphatics: No lymphadenopathy neck, axilla, groin. Musculoskeletal: Normal range of motion, Normal strength. Integumentary: Warm, Dry, No rash. Neurologic: Alert, Oriented, She has bilateral upper and lower extremity weakness. Psychiatric: Cooperative, Appropriate mood & affect. Results Review General results Interpretation: FEB 06 06:04 139 108 18 / 88 3.7 29 0.90 \ FEB 06 06:04 \ 12.6 / 6.3 192 / 39.0 \ Labs (Last four charted values) WBC 6.3 (FEB 06) 7.8 (FEB 05) HB 12.6 (FEB 06) 12.8 (FEB 05) HCT 39.0 (FEB 06) 38.8 (NOV 18) Plt 192 (NOV ) 222 (NOV ) Na 139 (FEB 06) 140 (NOV ) K 3.7 (FEB 06) 3.6 (NOV 18) Cl 108 (NOV ) 108 (NOV 18) CO2 29 (NOV ) 28 (NOV 18) BUN 18 (FEB 06) H 24 (NOV 18) Cr 0.90 (FEB 06) 1.00 (NOV 18) Glu R 88 (FEB 06) 97 (NOV 18) Ca 9.1 (FEB 06) 9.1 (NOV 18) PT 11.0 (FEB 06) INR 1.0 (FEB 06) PTT 25.9 (FEB 06) AST 14 (NOV ) ALT 26 (NOV ) ALK P 73 (NOV ) T Bili 0.3 (NOV ) PTN 7.7 (FEB 05) ALB 3.8 (FEB 05) Radiology Results (Last 48 hours) [id number] -- 02/05/2019 10:21 MRI Spine Cervical WO [...] cord from the cervicomedullary junction to the C4-D3ivxin. There is mild enhancement of the cord. [...] broad-based posterior disc bulging at C4-C5. At C6-D6bvbpx is a central to left paracentral disc [...] less likely multiplesclerosis or neoplasm. MRI Spine Thoracic WO W (02/05/2019 20:09) [...] normal signal and contour with no abnormalenhancement. Impression and Plan Diagnosis -Bilateral upper and lower extremity weakness with abnormal brain and c spine imaging-myelopathy of ? etiology -Abnormal signal intensity/enhancement involving cervical and thoracic spine-likely myelopathy -poor bowel-bladder function controlled -Pyuria-but doubt UTI-NO UTI I think -Essential hypertension -Hyperlipidemia -Recent left knee surgery -Anxiety and depression Plan neuro checks, extensive neuro w/u underway Neurology consultation appreciated follow labs prn, reviewed MRI cervical thoracic and lumbar spine Physical occupational and speech therapy consultation Plan of care was discussed with the patient and family documented in this encounter Plan of Treatment Not on file documented as of this encounter Visit Diagnoses Not on filedocumented in this encounter
--- OUTSIDE RECORDS SUMMARY | 2024-09-11 10:48 | XMS_ITS | Encounter Summary ---
Author Organization [employer] Address [address] [place] [address] Care Team Providers Care Chemistry Physics Teacher Name Role Phone Unavailable Primary Care Provider Unavailabl e Encounter Details Date Type Department Care Team (Late st Contact Info) Description 02/09/[address] [facility] [place] Family Medicine [address] [place] [address] ProviderYusuf MD [facility] [place] [id number] Social History Tobacco Use Types Packs/Day Years [...] Conversion Note - Historical ProviderMD - 02/09/2019 2:51 PM TOP STITCHER On Going Discharge Planning Entered On: 02/09/2019 14:52 EST Performed On: 02/09/2019 14:51 EST by ALECIA GOMEZ RN-Microbiology TechnologistCotton Dispatcher Progress Note Discharge Arrangements : Patient Post-Acute [...] Meeting Medical Necessity : Yes ALECIA GOMEZ RN-Microbiology Technologist - 02/09/2019 14:51 EST Narrative Progress Note Narrative Progress Note : CM reviewed chart. Neuro consult and following, MRI Cervical Thor. and Lumbar Spine. Discussed DCP with pt including HH vs Rehab. CM Will continue to follow for d/c needs. Historical Progress Note : CM reviewed chart. Cm [...] to follow for d/c needs. ALECIA GOMEZ, RN-Microbiology Technologist - 02/08/19 09:16:23 MICHAELA reviewed chart. RRS 38. Cm to room to met pt. Pt spouse in room. spouse stated that pt is off floor for Xray. Spouse stated that DCP is to discharge home with family. Possible hh if a need. CM will continue to follow for d/c needs. ALECIA GOMEZ, RN-Microbiology Technologist - 02/07/19 09:05:36 ALECIA GOMEZ RN-Microbiology Technologist - 02/09/2019 14:51 EST documented in this encounter Plan of Treatment Not on file documented as of this encounter Visit Diagnoses Not on filedocumented in this encounter
--- OUTSIDE RECORDS SUMMARY | 2024-09-11 10:48 | XMS_ITS | Encounter Summary ---
Author Organization [employer] Address [address] [place] [address] Care Team Providers Care Weights And Measures Inspector Name Role Phone Unavailable Primary Care Provider Unavailabl e Encounter Details Date Type Department Care Team (Late st Contact Info) Description 02/05/2019 Transcribed Document [facility] [place] Family Medicine [address] [place] [address] ProviderYusuf MD [address] [place] [address] Social History Tobacco Use Types Packs/Day [...] - Historical ProviderMD - 02/05/2019 10:38 AM AIRPLANE REFUELER Evaluation, Occupational Therapy Entered On: 02/06/2019 15:17 EST Performed On: 02/06/2019 9:08 EST by IVANIA BIRD OTR/Leeann General Information, OT Visit Type, OT : Initial evaluation Patient Orders : Order Date Order Ordering MD 02/05/2019 10:38 OT Evaluation and Treatment Ordered By: BASHIR RAYMOND MD-INT Active Diagnoses : 02/05/2019 12:00 Disease of spinal cord, unspecified Therapy Diagnosis, OT : Decreased indpendence with ADLs due to weakness Onset of Problem, OT : 02/05/2019 EST Admission Date : 02/05/2019 10:21 Co-treated by, OT : Physical Therapist Personal Devices : Personal Devices Glasses Assistive Devices : Assistive Devices No Devices Recorded Precautions in Place : Fall prevention measures General Information Comment, OT : Admit Dx: BUE/BLE weakness due to possible myelopathy Hx: HTN, recent L knee arthoscopy IVANIA BIRD OTR/Leeann - 02/06/2019 15:12 EST General Status Patient Received Status : Up in restroom Treatment Start Time : 02/06/2019 8:55 EST Patient Left Status : Supine in bed RN/PCT Informed Comment : JONATAN Gregory ok/nida Treatment End Time : 02/06/2019 9:08 EST Treatment Time : 13 Minute(s) IVANIA BIRD OTR/Leeann - 02/06/2019 15:12 EST History and Environment, OT Living Situation, Therapy : Home Patient Lives With : Spouse Persons Assisting Patient at Home : Spouse Persons Providing Information : Patient Home Equipment, Therapy : None Home Setup : One story IVANIA BIRD OTR/Leeann - 02/06/2019 15:12 EST Prior LOF Bathing, OT : Independent Prior LOF Bed Mobility : Independent Prior LOF Upper Body Dressing, OT : Independent Prior LOF Lower Body Dressing, OT : Independent Prior LOF Toileting : Independent Prior LOF Transfer : Independent Prior LOF Grooming, OT : Independent Prior LOF for IADLs, OT : Independent IVANIA BIRD OTR/Leeann - 02/06/2019 15:12 EST Upper Extremity Right UE Active ROM : WFL Left UE Active ROM : WFL IVANIA BIRD OTR/Leeann - 02/06/2019 15:12 EST RadialDeviation 0-20 Shoulder Flexion 0-180 : 3+/fair Shoulder Extension 0-60 : 3+/fair Shoulder Abduction 0-180 : 3+/fair Shoulder Adduction 0-180 : 3+/fair Shoulder Internal Rotation 0-90 : 3+/fair Shoulder External Rotation 0-90 : 3+/fair Elbow Flexion 0-150 : 3+/fair Elbow Extension 0-0 : 3+/fair Wrist Flexion 0-80 : 3+/fair Wrist Extension 0-70 : 3+/fair Forearm Pronation 0-70 : 3+/fair Forearm Supination 0-85 : 3+/fair Ulnar Deviation 0-45 : 3+/fair RadialDeviation 0-20 : 3+/fair IVANIA BIRD OTR/Leeann - 02/06/2019 15:12 EST RadialDeviation 0-20 LUE Shoulder Flexion 0-180 : 3+/fair Shoulder Extension 0-60 : 3+/fair Shoulder Abduction 0-180 : 3+/fair Shoulder Adduction 0-180 : 3+/fair Shoulder Internal Rotation 0-90 : 3+/fair Shoulder External Rotation 0-90 : 3+/fair Elbow Flexion 0-150 : 3+/fair Elbow Extension 0-0 : 3+/fair Wrist Flexion 0-80 : 3+/fair Wrist Extension 0-70 : 3+/fair Forearm Pronation 0-70 : 3+/fair Forearm Supination 0-85 : 3+/fair Ulnar Deviation 0-45 : 3+/fair RadialDeviation 0-20 : 3+/fair IVANIA BIRD OTR/Leeann 02/06/2019 15:12 EST Hand Carcass Splitter Test : Bilateral horseback riding instructor strength WFL IVANIA BIRD OTR/Leeann 02/06/2019 15:12 EST Self Care/Home Management, OT Self Feeding Assist Level, OT : Independent, modified Grooming Assist Level, OT : Independent, modified Bathing Assist Level, OT : Assist, minimal Upper Body Dressing Assist Level, OT : Supervision or set-up Lower Body Dressing Assist Level, OT : Assist, minimal Toileting Assist Level : Supervision or set-up Toilet Transfer Assist Level : Assist, minimal IVANIA BIRD OTR/Leeann 02/06/2019 15:12 EST Functional Mobility Mobility Grid Sit to Stand : Rehab Minimal assistance Bed to Chair : Rehab Minimal assistance Stand to Sit : Rehab Minimal assistance Sit to Supine : Rehab Minimal assistance IVANIA BIRD OTR/Leeann 02/06/2019 15:12 EST Cognition Assessment, OT Orientation : Oriented x 4 IVANIA BIRD OTR/Leeann 02/06/2019 15:12 EST Indication Assessment, OT Occupational Therapy Indicated : Yes Problem List, OT : Impaired, bed mobility, Impaired, activities daily living, Impaired, endurance tolerance, Impaired functional mobility, Impaired, sitting balance, Impaired, standing balance, Impaired, strength, Impaired, transfers, Pain limiting function Potential Barriers, OT : None evident Rehabilitation Potential, OT : Good IVANIA BIRD OTR/Leeann 02/06/2019 15:12 EST Plan of Care, OT OT Tx Plan/Goals Established w Patient : Yes OT Frequency Rehab : Five days per week OT Duration Rehab : Fourteen days OT Treatments Planned : Activities of daily living, Functional mobility training, Safety education, Therapeutic activities IVANIA BIRD OTR/Leeann 02/06/2019 15:12 EST Resident Director Goals, OT Grooming LTG Grid Goal #1 Activity : Grooming Assist : Independent, modified Date to Meet : 02/20/2019 EST Goal Status : Initial goal Comment : Standing up at sink IVANIA BIRD OTR/Leeann - 02/06/2019 15:12 EST Bathing LTG Grid Goal #1 Activity : Bathing Assist : Independent, modified Date to Meet : 02/20/2019 EST Goal Status : Initial goal IVANIA BIRD OTR/Leeann - 02/06/2019 15:12 EST Dressing, Lower Body LTG Grid Goal #1 Activity : Dressing, Lower Body Assist : Independent, modified Date to Meet : 02/20/2019 EST Goal Status : Initial goal IVANIA BIRD OTR/Leeann - 02/06/2019 15:12 EST Toileting LTG Grid Goal #1 Activity : Toileting Assist : Independent, modified Date to Meet : 02/20/2019 EST Goal Status : Initial goal IVANIA BIRD OTR/Leeann - 02/06/2019 15:12 EST Toilet Transfer LTG Grid Goal #1 Activity : Toilet Transfer, Ambulatory Assist : Independent, modified Date to Meet : 02/20/2019 EST Goal Status : Initial goal IVANIA BIRD OTR/Leeann - 02/06/2019 15:12 EST Treatment Note Subjective Comment : Pt was agreeable Patient's Response to Treatment : Pt tolerated eval well Additional Objective Information : Pt was found up in bathroom. Pt was min A for ambulation via RWX, sit to stand, stand to sit, and sit to supine. Pt has decreased leg strength and endurance during ambulation. Pt was left lying supine in with all needs met, and call light within in reach Assessment : Pt would benefit from OT services during hospitalization Plan for Treatment : see goals IVANIA BIRD OTR/Leeann - 02/06/2019 15:12 EST Pain Assessment Pain Scaled Used : 0-10 Pain scale Pain Score Pre-Intervention : 0 IVANIA BIRD OTR/Leeann - 02/06/2019 15:12 EST Image 1 - Images currently included in the form version of this document have not been included in the text rendition version of the form. Anticipated Discharge Needs, OT/PT Anticipated Discharge to : Home, with family care IVANIA BIRD OTR/Leeann - 02/06/2019 15:12 EST [place] OT Charges OT Eval Moderate Complexity : 1 IVANIA BIRD, OTR/Leeann - 02/06/2019 15:12 EST Electronically signed by Lillian, [facility] Conversion Pulmonary Specialist Cerner at 07/07/2022 9:56 PM CDT documented in this encounter Plan of Treatment Not on file documented as of this encounter Visit Diagnoses Not on filedocumented in this encounter
--- OUTSIDE RECORDS SUMMARY | 2024-09-11 10:48 | XMS_ITS | Encounter Summary ---
Author Organization [employer] Address [address] [place] [address] Care Team Providers Care Component Design Engineer Name Role Phone Unavailable Primary Care Provider Unavailabl e Encounter Details Date Type Department Care Team (Late st Contact Info) Description 02/09/2019 Transcribed Document [facility] [place] [address] [place] [address] ProviderYusuf MD [facility] [place], [place] [address] Social History Tobacco Use Types Packs/Day Years [...] Note - Historical ProviderMD - 02/09/2019 5:00 AM ENVIRONMENTAL CONSERVATION OFFICER Chart Check - Review Order Profile Entered On: 02/09/2019 4:03 EST Performed On: 02/09/2019 5:00 EST by Lesly Colindres RN Chart Check All Active Orders Reviewed : Yes Lesly Colindres RN - 02/09/2019 4:03 EST Electronically signed by Lillian [facility] Conversion Public [employer] Teacher Cerner at 07/07/2022 9:52 PM CDT documented in this encounter Plan of Treatment Not on file documented as of this encounter Visit Diagnoses Not on filedocumented in this encounter
--- OUTSIDE RECORDS SUMMARY | 2024-09-11 10:48 | XMS_ITS | Encounter Summary ---
Author Organization [employer] i[employer] Address [address] [place] [address] Care Team Providers Care Manager Digital Ad Operations Name Role Phone Unavailable Primary Care Provider Unavailabl e Encounter Details Date Type Department Care Team (Late st Contact Info) Description 02/10/2019 Transcribed Document [facility] [place] Medicine [address] [place] [address] ProviderYusuf MD [address] [place] [address] Social History Tobacco Use Types Packs/Day Years [...] Conversion Note - Historical ProviderMD - 02/10/2019 5:00 AM LONGITUDINAL FLOAT OPERATOR Chart Check - Review Order Profile Entered On: 02/10/2019 4:32 EST Performed On: 02/10/2019 5:00 EST by Ruth Mueller, RN-Resource Chart Check Powerplans Initiated/Discontinued as Appropriate : Yes All Active Orders Reviewed : Yes Chart Reviewed With : Ruth Mueller, RN-Resource Ruth Mueller, RN-Resource - 02/10/2019 4:32 EST documented in this encounter Plan of Treatment Not on file documented as of this encounter Visit Diagnoses Not on filedocumented in this encounter
--- OUTSIDE RECORDS SUMMARY | 2024-09-11 10:48 | XMS_ITS | Encounter Summary ---
Author Organization [employer] Address [address] [place] [address] Care Team Providers Care Repossession Agent Name Role Phone Unavailable Primary Care Provider Unavailabl e Encounter Details Date Type Department Care Team (Late st Contact Info) Description 02/10/2019 Transcribed Document [facility] [place] [address] [place] [address] ProviderYusuf MD [address] [place] [address] Social History Tobacco Use Types Packs/Day Years [...] Note - Historical ProviderMD - 02/10/2019 5:00 PM REORDERING CLERK Chart Check - Review Order Profile Entered On: 02/10/2019 19:49 EST Performed On: 02/10/2019 17:00 EST by JEIMY WONG RN Chart Check Powerplans Initiated/Discontinued as Appropriate : Yes All Active Orders Reviewed : Yes JEIMY WONG RN - 02/10/2019 19:49 EST documented in this encounter Plan of Treatment Not on file documented as of this encounter Visit Diagnoses Not on filedocumented in this encounter
--- OUTSIDE RECORDS SUMMARY | 2024-09-11 10:48 | XMS_ITS | Encounter Summary ---
Author Organization [employer] Address [address] [place] [address] Care Team Providers Care Information Coder Name Role Phone Unavailable Primary Care Provider Unavailabl e Encounter Details Date Type Department Care Team (Late st Contact Info) Description 02/06/2019 Transcribed Document [facility] [place] [address] [place] [address] ProviderYusuf MD [facility] [place] [address] Social History Tobacco Use Types Packs/Day Years [...] Conversion Note - Historical ProviderMD - 02/06/2019 2:40 PM ENGINE ASSEMBLY SUPERVISOR Patient: FRANKY SCOTT Age: 74 years Sex: Female : 1945 Associated Diagnoses: None Author: ANGELA MCKEON PA-C Status post fluoroscopic guided lumbar puncture. Access was obtained to the thecal sac at the L3-4 vertebral level. 13 mls of clear CSF were removed. Opening pressure = 8. Electronically signed by Onel Snyder Conversion Keymodule Assembly Supervisor Cersmooth at 07/07/2022 9:50 PM CDT documented in this encounter Plan of Treatment Not on file documented as of this encounter Visit Diagnoses Not on filedocumented in this encounter
--- OUTSIDE RECORDS SUMMARY | 2024-09-11 10:48 | XMS_ITS | Encounter Summary ---
Author Organization [employer] Address [address] [place] [address] Care Team Providers Care Access Liaison Name Role Phone Unavailable Primary Care Provider Unavailabl e Encounter Details Date Type Department Care Team (Late st Contact Info) Description 02/06/2019 Transcribed Document [facility] Radiology [address] [place] [address] Anne Peters MD [address] [place] [address] [address] [place] [address] Social History Tobacco Use Types Packs/Day Years [...] Note - Anne Peters MD - 02/06/2019 10:31 AM EST Patient: FRANKY DEWITT Age: 74 years Sex: Female : 1945 Associated Diagnoses: None Author: ANNE PETERS MD-INT Subjective Primary care physician Dr Bradley CRUZ Date of admission 02/05/2019 Date of discharge Referring physician Dr. Johan Sue neurology [place] Chief complaint bilateral upper and lower [...] At risk for sleep apnea / IMO [id number] / Confirmed, Active Problems (3) At risk [...] gallop, S1+ S2 No S3 or S4 [place].. Gastrointestinal: Soft, Non-tender, Non-distended, Normal bowel sounds. [...] (FEB 05) Radiology Results (Last 48 hours) [id number] -- 02/05/2019 10:21 MRI Spine Cervical WO [...] cord from the cervicomedullary junction to the C4-V7iookz. There is mild enhancement of the cord. [...] broad-based posterior disc bulging at C4-C5. 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
--- OUTSIDE RECORDS SUMMARY | 2024-09-11 10:48 | XMS_ITS | Encounter Summary ---
Author Organization [employer] Address [address] [place] [address] Care Team Providers Care Mold Blower Name Role Phone Unavailable Primary Care Provider Unavailabl e Encounter Details Date Type Department Care Team (Late st Contact Info) Description 02/11/2019 Transcribed Document [facility] [place] [address] [place] [address] ProviderYusuf MD [address], [place] [address] Social History Tobacco Use Types Packs/Day Years [...] Conversion Note - Historical ProviderMD - 02/11/2019 5:00 PM TWISTER TENDER Chart Check - Review Order Profile Entered On: 02/11/2019 15:30 EST Performed On: 02/11/2019 17:00 EST by Sandra Mancilla RN Chart Check Powerplans Initiated/Discontinued as Appropriate : Yes All Active Orders Reviewed : Yes Sandra Mancilla RN - 02/11/2019 15:30 EST documented in this encounter Plan of Treatment Not on file documented as of this encounter Visit Diagnoses Not on filedocumented in this encounter
--- OUTSIDE RECORDS SUMMARY | 2024-09-11 10:48 | XMS_ITS | Clinical Summary ---
Author Organization [facility] Address [address] [place] [address] Care Team Providers Care Railroad Car Letterer Name Role Phone Jensen Santiago MD Primary Care Provider [phone] Allergies Active Allergy Reactions Criticality Noted Date Comments Lisinopril Hives Medium 03/28/2019 Penicillins Rash Low 03/28/2019 Tramadol Rash Low 10/17/2019 Medications cholecalciferol (Vitamin D3) 25 MCG (1000 UT) tablet 1 (one) time each day. Active doxycycline (Monodox) 100 MG capsule doxycycline monohydrate 100 mg capsule TAKE 1 CAPSULE BY MOUTH ONCE DAILY AT BEDTIME Active DULoxetine (Cymbalta) [address] capsule duloxetine 60 mg capsule,delayed release TAKE 1 CAPSULE BY MOUTH EVERY DAY Active loratadine (Claritin) 10 MG tablet 1 (one) time each day. Active losartan (Cozaar) 25 MG tablet losartan 25 mg tablet TAKE 1 TABLET BY MOUTH EVERY DAY Active pantoprazole (ProtoNix) 40 MG EC tablet pantoprazole 40 mg tablet,delayed release TAKE 1 TABLET BY MOUTH ONCE DAILY Active oxybutynin (Ditropan) 5 MG tablet Take 5 mg by mouth 2 (two) times a day. Active omega-3 (Fish Oil) 1000 MG capsule Take 1 capsule (1,000 mg) by mouth 1 (one) time each day. Active triamcinolone (Kenalog) 0.1 % cream APPLY CREAM EXTERNALLY TO AFFECTED AREA TWICE DAILY 2 Active promethazine-de xtromethorphan (Phenergan-DM) 6.25-15 MG/5ML syrup TAKE 5 ML BY MOUTH EVERY 6 HOURS NEEDED 3 Active pregabalin (Lyrica) 150 MG capsule Take 1 capsule (150 mg) by mouth. 3 Active albuterol 108 (90 Base) MCG/ACT inhaler INHALE 1 PUFF BY MOUTH EVERY 4 HOURS NEEDED 3 Active Active Problems Problem Noted Date Diagnosed Date Stage 3a chronic kidney disease 09/24/2021 Chronic kidney disease-mineral and bone disorder 03/02/2021 Renal insufficiency 01/26/2021 Edema 01/26/2021 Osteopenia 01/26/2021 Neurogenic bladder 01/26/2021 Essential hypertension 04/06/2019 Family History Medical History Relation Name Comments Heart failure Father Heart failure Mother kidney problems Mother Relation Name Status Comments Father Mother Alive Social History Tobacco Use Types Packs/Day Years Used Date Smoking Tobacco: Never Passive Smoke Exposure: Never Smokeless Tobacco: Never Tobacco Cessation:Counseling Given: Not Answered Alcohol Use Standard Drinks/Week Comments Yes 0 (1 standard drink = 0.6 oz pur e alcohol) Comments Unknown Sex and Gender Information Value Date Recorded Sex Assigned at Not on file Legal Sex Female 8:20 PM EDT Gender Identity Not on file Sexual Orientation Not on file Last Filed Vital Signs Vital Sign Reading Time Taken Comments Blood Pressure 125/77 10/01/2022 1:12 PM EDT Pulse 93 10/01/2022 1:12 PM EDT Temperature - - Respiratory Rate - - Oxygen Saturation - - Inhaled Oxygen Concentration - - Weight 88.5 kg (195 lb) 10/01/2022 1:12 PM EDT Height - - Body Mass Index - - Plan of Treatment Health Maintenance Due Date Last Done Comments [facility]-Bone Density Scan 1945 [facility]-Depression Screening 1945 [facility]-Hepatitis C Screening 1945 [facility]-Medicare Annual Wellness (AWV) 1945 [facility]-/Child/Adol SDOH Screenings 1945 [facility]- SDOH Screenings 1965 [facility]-Adult SDOH Screenings 1965 [facility]-Zoster Vaccines (1 of 2) 1997 [facility]-RSV Vaccine: 60+ Years or (1 - 1-dose 75+ series) 2022 [facility]-WAFMI-36 Vaccine (2023- season) 2023 12/16/2021, 07/31/2021, 01/28/2021, Additional history exists [facility]-Influenza Vaccine (Season Ended) 2024 01/29/2022, 01/02/2021, 12/02/2020, Additional history exists [facility]-DTaP,Tdap,and Td Vaccines (2 - Td or Tdap) 05/11/2028 05/11/2018 [facility]-Pneumococcal Vaccine: 50+ Years Completed 06/29/2019, 05/11/2018 HPV Vaccines Aged Out No longer eligi ble based on patient's age to complete this topic [facility]-HIB Vaccines Aged Out No longer e ligible based on patient's age to complete this topic [facility]-Hepatitis A Vaccines Aged Out No longer eligible based on patient's age to complete this topic [facility]-IPV Vaccines Aged Out No longer e ligible based on patient's age to complete this topic [facility]-Rotavirus Vaccines Aged Out No lo nger eligible based on patient's age to complete this topic Insurance MEDICARE [facility] Care Teams Railroad Car Letterer Relationship Specialty Start Date End Date Jensen Santiago MD [address] [place] [phone] PCP - General 12/11/20
--- OUTSIDE RECORDS SUMMARY | 2024-09-11 10:48 | XMS_ITS | Encounter Summary ---
Author Organization [employer] Address [address] [place] [address] Care Team Providers Care Teller Supervisor Name Role Phone Unavailable Primary Care Provider Unavailabl e Encounter Details Date Type Department Care Team (Late st Contact Info) Description 02/06/2019 Transcribed Document [facility] [place] [address] [place] [address] ProviderYusuf MD [address] [place] [address] Social History Tobacco Use Types Packs/Day Years [...] Conversion Note - Historical ProviderMD - 02/06/2019 2:00 AM AUTOMOBILE TESTER Breakfast Bar Attendant Details Entered On: 02/06/2019 1:49 EST Performed On: 02/06/2019 2:00 EST by Aicha Logan, RN Order Details Transport Mode Order Detail : Wheelchair Isolation Precautions Order Detail : Standard Precautions Order Detail : N/A IV Order Detail : 1 Oxygen Order Detail : 0 Nurse Collect Order Detail : 0 Lift/Transfer : Minimal Central Line Order Detail : No Room Service : Appropriate Arterial Line : No Aicha Logan, RN - 02/06/2019 1:49 EST Electronically signed by Onel Snyder Conversion Automatic Shirring Machine Operator Cerner at 07/07/2022 9:58 PM CDT documented in this encounter Plan of Treatment Not on file documented as of this encounter Visit Diagnoses Not on filedocumented in this encounter
--- OUTSIDE RECORDS SUMMARY | 2024-09-11 10:49 | XMS_ITS | Encounter Summary ---
Author Organization [employer] Address [address] [place] [address] Care Team Providers Care School Community Relations Coordinator Name Role Phone Unavailable Primary Care Provider Unavailabl e Encounter Details Date Type Department Care Team (Late st Contact Info) Description 02/11/2019 Transcribed Document [facility] Radiology [address] [place] [address] Anne Peters MD [address] [place] [address] [address] [place] [address] Social History Tobacco Use Types Packs/Day Years [...] Conversion Note - Anne Peters MD - 02/11/2019 10:41 AM EST Patient: FRANKY DEWITT Age: 74 years Sex: Female : 1945 Associated Diagnoses: None Author: ANNE PETERS MD-INT Subjective Primary care physician Dr Bradley CRUZ Date of admission 02/05/[address] Johan [facility] Chief complaint bilateral upper and lower [...] c/o, leg weakness better, kaitlynn steroids well 5-pt Past medical history is significant for prior [...] At risk for sleep apnea / IMO [id number] / Confirmed, Active Problems (3) At risk for sleep apnea HLD (hyperlipidemia) HTN (hypertension) Objective VS/Measurements Vitals Signs (last 24 hrs) Last Charted Minimum Maximum Temp 98.4 (FEB 11:35) 98 (FEB 10 17:36) 98.4 (FEB 10 14:30) Mon HR 75 (FEB 11:) 72 (FEB 11:) 87 (FEB 10 14:30) Resp Rate 18 (FEB 11:) 16 (FEB 10 17:36) 18 (FEB 10 22:12) SBP H 141 (FEB 11:) 113 (FEB 10 22:12) H 158 (FEB 11:) DBP 75 (FEB 11:35) 69 (FEB 10 14:30) 86 (FEB 11:) MAP 115 (FEB 11:35) 81 (FEB 10 14:30) 115 (FEB 11:35) SpO2 L 92 (FEB 11:) L 92 (FEB 11:) 94 (FEB 11:) General: No acute distress. Eye: Normal conjunctiva. HENT: Normocephalic. Neck: Supple, No jugular venous distention. Respiratory: Lungs are clear to auscultation, Respirations are non-labored, Breath sounds are equal. Cardiovascular: Normal rate, Regular rhythm, No gallop, S1+ S2 No S3 or S4 [place].. Gastrointestinal: Soft, Non-tender, Non-distended, Normal bowel sounds. [...] w/u underway, Neurology following, follow SUHAS screen steroids now being added at a lower [...]
--- OUTSIDE RECORDS SUMMARY | 2024-09-11 10:49 | XMS_ITS | Encounter Summary ---
Author Organization [employer] Address [address] [place] [address] Care Team Providers Care Safety Associate Name Role Phone Unavailable Primary Care Provider Unavailabl e Encounter Details Date Type Department Care Team (Late st Contact Info) Description 02/05/[address] [facility] [place] [address] [place] [address] ProviderYusuf MD [address] [place] [address] Social History Tobacco Use Types Packs/Day [...] Cerner Conversion Note - Historical Provider, - 02/05/2019 2:38 PM PARADICHLOROBENZENE MACHINE OPERATOR Treatment Intervention, PT Entered On: 02/06/2019 11:48 EST Performed On: 02/06/2019 11:44 EST by SIVAKUMAR MCKINLEY PT General Information, PT Visit Type, PT : Treatment Note Patient Orders : Order Date Order Ordering 02/05/2019 10:38 PT Evaluation and Treatment Ordered By: BASHIR RAYMOND MD-INT 02/05/2019 14:38 PT Additional Treatment Ordered By: SAIMA CURRY PT Active Diagnoses : 02/05/2019 12:00 Disease of spinal cord, unspecified Admission Date : 02/05/2019 10:21 Co-treated by, PT : Occupational Therapist Assisted by, PT : proced tech/aide Personal Devices : Personal Devices Glasses Assistive Devices : Assistive Devices No Devices Recorded Precautions in Place : Fall prevention measures SIVAKUMAR MCKINLEY, PT - 02/06/2019 11:44 EST General Status Patient Received Status : Supine in bed Treatment Start Time : 02/06/2019 8:53 EST Patient Left Status : Supine in bed, Communication board completed, All needs met and within reach RN/PCT Informed Comment : Bri Treatment End Time : 02/06/2019 9:05 EST Treatment Time : 12 Minute(s) SIVAKUMAR MCKINLEY, PT - 02/06/2019 11:44 EST Functional Mobility Mobility Grid Sit to Stand : Supervision/set-up Stand to Sit : Supervision/set-up Sit to Supine : Supervision/set-up SIVAKUMAR MCKINLEY, PT - 02/06/2019 11:44 EST Gait Training/Assessment, PT Gait Assistance Level : Assist, minimal Walking Distance : 160' Ambulatory Devices : Gait belt, Walker, front wheel SIVAKUMAR MCKINLEY, PT - 02/06/2019 11:44 EST Edu Topics Physical Therapy Education Grid Role of Physical Therapy : Verbalizes understanding SIVAKUMAR MCKINLEY, PT - 02/06/2019 11:44 EST Indication Assesessment, PT Physical Therapy Indicated : Yes SIVAKUMAR MCKINLEY PT - 02/06/2019 11:44 EST Plan of Care, PT PT Tx Plan/Goals Established w Patient : Yes SIVAKUMAR MCKINLEY PT - 02/06/2019 11:44 EST Microbiology Lab Analyst Goals Mobility/Bed Mobility LTG PT Grid Goal #1 Goal #2 Activity : Supine to sit Sit to stand Assist : Independent, modified Independent, modified Date to Meet : 02/19/2019 EST 02/19/2019 EST Goal Status : Intial Goal Intial Goal SIVAKUMAR MCKINLEY, PT - 02/06/2019 11:44 EST SIVAKUMAR MCKINLEY PT - 02/06/2019 11:44 EST Ambulation LTG Grid Goal #1 Device : Walker, front wheel Distance : 575ft Assist : Independent, modified Date to Meet : 02/19/2019 EST Goal Status : Intial Goal SIVAKUMAR MCKINLEY, PT - 02/06/2019 11:44 EST Treatment Note Subjective Comment : Patient agreed to PTx. RN ok'd PTx. Additional Objective Information : Patient stated that she felt weak. Her legs also gave out on her during ambulation requiring [place]. Assessment : Patient demonstrates reduced independence and safety with functional mobility, transfers, and gait. Patient also demonstrates decreased activity tolerance. Patient would continue to benefit from skilled PT services in order to improve in these areas and return to PLOF. Plan for Treatment : Continue POC ELÍAS SIVAKUMAR, PT - 02/06/2019 11:44 EST Pain Assessment Pain Scaled Used : 0-10 Pain scale Pain Score Pre-Intervention : 5 SIVAKUMAR MCKINLEY, PT - 02/06/2019 11:44 EST Image 1 - Images currently included in the form version of this document have not been included in the text rendition version of the form. Anticipated Discharge Needs, OT/PT Anticipated Discharge to : Unit, rehabilitation Recommend Continued Therapy at Discharge : Yes SIVAKUMAR MCKINLEY, PT - 02/06/2019 11:[address] [facility] PT Therap. Exercise 15 min : 1 SIVAKUMAR MCKINLEY, PT - 02/06/2019 11:44 EST Electronically signed by Lillian [facility] Conversion Sewing Machine Operator Semiautomatic Cerner at 07/07/2022 9:58 PM CDT documented in this encounter Plan of Treatment Not on file documented as of this encounter Visit Diagnoses Not on filedocumented in this encounter
--- OUTSIDE RECORDS SUMMARY | 2024-09-11 10:49 | XMS_ITS | Encounter Summary ---
Author Organization [employer] Address [address] [place] [address] Care Team Providers Care Rip Sawyer Name Role Phone Unavailable Primary Care Provider Unavailabl e Encounter Details Date Type Department Care Team (Late st Contact Info) Description 02/12/2019 Transcribed Document [facility] [place] [address] [place] [address] ProviderYusuf MD [facility] [place] [address] Social History Tobacco Use Types Packs/Day Years [...] Conversion Note - Historical ProviderMD - 02/12/2019 8:56 AM WINDSHIELD INSTALLER Consult Phone Call Documentation Entered On: 02/12/2019 9:20 EST Performed On: 02/12/2019 8:56 EST by Gloria [facility] Phone Call for Consults Consult Phone Call/Page Attempt : First call Gloria Ac[facility] - 02/12/2019 9:20 EST Consult Reason : Cervical Myopathy Physician Requesting Consult : BASHIR RAYMOND MD-INT Provider Service Notified Name : Other: Rheumatology Date and Time Call Returned : 02/12/2019 8:56 EST Gloria [facility] - 02/12/2019 9:17 EST Electronically signed by Lillian [facility] Conversion Fire Regulator Cerner at 07/07/2022 9:51 PM CDT documented in this encounter Plan of Treatment Not on file documented as of this encounter Visit Diagnoses Not on filedocumented in this encounter
--- OUTSIDE RECORDS SUMMARY | 2024-09-11 10:49 | XMS_ITS | Encounter Summary ---
Author Organization [employer] Address [address] [place] [address] Care Team Providers Care Green Ware Caster Name Role Phone Unavailable Primary Care Provider Unavailabl e Encounter Details Date Type Department Care Team (Late st Contact Info) Description 02/12/2019 Transcribed Document [facility] [place] Medicine [address] [place] [address] ProviderYusuf MD [facility] [place] [address] Social History Tobacco Use Types Packs/Day Years Used Date Smoking Tobacco: Never Assessed Comments Unknown Sex and Gender Information Value Date Recorded Sex Assigned at Female 09/17/2021 5:37 PM CDT Legal Sex Female 5:37 PM CDT Gender Identity Female 09/17/2021 5:37 PM CDT Sexual Orientation Not on file documented as of this encounter Miscellaneous Notes * Cerner Conversion Note - Historical Provider, - 02/12/2019 9:00 AM SOURCING COORDINATOR Consult Phone Call Documentation Entered On: 02/12/2019 9:21 EST Performed On: 02/12/2019 9:00 EST by Gloria Acosta [facility] Phone Call for Consults Consult Phone Call/Page Attempt : Other: Md called Consult Reason : Thrombocytosis Physician Requesting Consult : BASHIR RAYMOND MD-INT Physician Requested for Consult : EMANUEL MITCHELL MD-RHE Provider Service Notified Name : Other: Oncology Date and Time Call Returned : 02/12/2019 8:56 EST Gloria Acosta [facility] - 02/12/2019 9:20 EST Electronically signed by Lillian [facility] Conversion Automatic Glove Turner And Former Cerner at 07/07/2022 9:48 PM CDT documented in this encounter Plan of Treatment Not on file documented as of this encounter Visit Diagnoses Not on filedocumented in this encounter
--- OUTSIDE RECORDS SUMMARY | 2024-09-11 10:49 | XMS_ITS | Encounter Summary ---
Author Organization [employer] Address [address] [place] [address] Care Team Providers Care Loan Review Analyst Name Role Phone Unavailable Primary Care Provider Unavailabl e Encounter Details Date Type Department Care Team (Late st Contact Info) Description 02/15/2019 Transcribed Document [facility] Radiology [address] [place] [address] Zack Jha MD [address] [place] [address] [address] [id number] Social History Tobacco Use Types Packs/Day Years [...] Conversion Note - Zack Jha MD - 02/15/2019 9:14 AM EST Patient: FRANKY DEWITT Age: 74 years Sex: Female : 1945 Associated Diagnoses: None Author: ZACK JHA MD-INT Subjective Primary care physician Dr Bradley CRUZ Date of admission 02/05/2019 Date of discharge: 02/15/2019 Discharge facilitys [facility] Full code at the time of discharge Referring physician Dr. Johan Sue neurology [facility] Chief complaint bilateral upper and lower extremity [...] and contour with no abnormal enhancement. Hospital Course: 02/05 patient seen and examined history and [...] c/o, leg weakness better, kaitlynn steroids well 112-pt feels well, leg weakness better, still appears [...] they are looking for some rehabilitation placement. 02/14/2019 Patient is awake and alert. No apparent distress noted. is at bedside. Complaining of mild headache and BPs slightly fluctuating. Skiing something to help her sleep at night. 02/15/2019 Patient is awake and alert. Resting in bed. No new complaints. Had a good night sleep last night. Blood pressure better controlled. Using walker for ambulation. Denies chest pain or shortness of breath. Afebrile. Past medical history is significant for prior knee surgery on the left side, hypertension, dyslipidemia, and anxiety and depression Family history positive for heart disease Social history lives with her no alcohol no tobacco no drug abuse Health Status Allergies: Allergic Reactions (Selected) Severity [...] PRN: Anxiety Lovenox: 40 mg, SubCutaneous, Daily Melatonin: 3 mg, Oral, At Bedtime, PRN: Sleep MiraLax: 17 Gram, Oral, Daily, PRN: Constipation [...] extended release: 1 Tab, Oral, Daily predniSONE: 40 mg, Oral, Daily predniSONE: 50 mg, Oral, Daily predniSONE: 60 mg, Oral, Daily [...] 24 hrs) Last Charted Minimum Maximum Temp 97.9 (FEB 15 02:15) 97.9 (FEB 15 02:15) 98.1 (FEB 14 22:30) Mon HR 58 (FEB 15 02:15) 58 (FEB 15 02:15) 72 (FEB 14 14:29) Resp Rate 16 (FEB 15 02:15) 16 (FEB 15 02:15) 18 (FEB 14 22:30) SBP H 146 (FEB 15 02:15) 104 (FEB 14 14:29) H 154 (FEB 14 22:30) DBP 85 (FEB 15 02:15) 69 (FEB 14 14:29) 85 (FEB 15 02:15) MAP 103 (FEB 15 02:15) 80 (FEB 14 14:29) 103 (FEB 15 02:15) SpO2 97 (FEB 14 20:12) 96 (FEB 14 09:39) 97 (FEB 14 20:12) General: No acute distress. Respiratory: Lungs are clear to auscultation, Respirations are non-labored. Cardiovascular: Normal rate, Regular rhythm, No gallop, S1+ S2 No S3 or S4 [place].. Gastrointestinal: Soft, Non-tender, Non-distended, Normal bowel sounds. Musculoskeletal: Lower extremity weakness. Integumentary: Warm, Dry, No rash. Neurologic: Alert, Oriented, She has bilateral upper and lower extremity weakness-lower ext more so than upper. Results Review General results Interpretation: No qualifying data available Labs (Last four charted values) WBC 8.8 (FEB 14) H 13.7 (FEB 11) 6.3 (FEB 06) 7.8 (JAN 18) HB 12.1 (FEB 14) 13.7 (FEB 11) 12.6 (FEB 06) 12.8 (NOV 18) HCT 35.6 (FEB 14) 40.1 (FEB 11) 39.0 (FEB 06) 38.8 (NOV 18) Plt 187 (FEB 14) 254 (NOV 24) 192 (NOV 19) 222 (NOV 18) Na 138 (FEB 14) 138 (NOV 24) 139 (NOV ) 140 (NOV 18) K 3.5 (FEB 14) 4.1 (FEB 11) 3.7 (FEB 06) 3.6 (NOV 18) Cl 111 (FEB 14) 107 (FEB 11) 108 (FEB 06) 108 (FEB 05) CO2 25 (FEB 14) 24 (FEB 11) 29 (FEB 06) 28 (JAN 18) BUN H 26 (FEB 14) H 37 (FEB 11) 18 (FEB 06) H 24 (JAN 18) Cr 0.80 (FEB 14) 0.90 (FEB 11) 0.90 (FEB 06) 1.00 (JAN 18) Glu R 94 (FEB 14) H 154 [...] 14) 3.4 (FEB 11) 3.8 (FEB 05) Radiology Results (Last 48 hours) [id number] -- 02/05/2019 10:21 CT Abdomen Pelvis WO (02/14/2019 12:52) Result: CT SCAN OF THE CHEST, ABDOMEN, AND PELVIS WITHOUT CONTRAST. HISTORY: Transverse myelitis, sarcoidosis.COMPARISON: None .PROCEDURE: Axial images were obtained from the lung apex to the pubicsymphysis by computed tomography. This study was performed withtechniques to keep radiation doses as low as reasonably achievable,(ALARA). Individualized dose reduction techniques using automatedexposure control or adjustment of mA and/or kV according to the patientsize were employed.FINDINGS: CHEST: There is no axillary adenopathy. There is no significant hilar ormediastinal mass or adenopathy. Heart size is normal. There is nopericardial or pleural effusion. There is scarring in the medial lungbases. There are no pulmonary masses or infiltrates identified. Acalcified granuloma is identified in the right upper lobe. ABDOMEN: The liver parenchyma is homogeneous. The gallbladder ispresent. The spleen is unremarkable. No adrenal mass is present. Thepancreas is normal. The kidneys are normal. The aorta is normal incaliber. There is no free fluid or adenopathy. PELVIS: The appendix is not identified. The uterus is midline. There isno pelvic mass or inflammation. The urinary bladder is unremarkable.There is no significant free fluid or adenopathy. IMPRESSION: No evidence of acute cardiopulmonary or intra-abdominalprocess.Films reviewed, interpreted, and dictated by Dr. Huffman.Transcribed by aKte Chery PA-C.I have personally viewed, interpreted and dictated the examination. Ihave read and agree with the above final transcribed report. CT Chest WO (02/14/2019 12:52) Result: CT SCAN OF THE CHEST, ABDOMEN, AND PELVIS WITHOUT CONTRAST. HISTORY: Transverse myelitis, sarcoidosis.COMPARISON: None .PROCEDURE: Axial images were obtained from the lung apex to the pubicsymphysis by computed tomography. This study was performed withtechniques to keep radiation doses as low as reasonably achievable,(ALARA). Individualized dose reduction techniques using automatedexposure control or adjustment of mA and/or kV according to the patientsize were employed.FINDINGS: CHEST: There is no axillary adenopathy. There is no significant hilar ormediastinal mass or adenopathy. Heart size is normal. There is nopericardial or pleural effusion. There is scarring in the medial lungbases. There are no pulmonary masses or infiltrates identified. Acalcified granuloma is identified in the right upper lobe. ABDOMEN: The liver parenchyma is homogeneous. The gallbladder ispresent. The spleen is unremarkable. No adrenal mass is present. Thepancreas is normal. The kidneys are normal. The aorta is normal incaliber. There is no free fluid or adenopathy. PELVIS: The appendix is not identified. The uterus is midline. There isno pelvic mass or inflammation. The urinary bladder is unremarkable.There is no significant free fluid or adenopathy. IMPRESSION: No evidence of acute cardiopulmonary or intra-abdominalprocess.Films reviewed, interpreted, and dictated by Dr. Huffman.Transcribed by Kate Chery PA-C.I have personally viewed, interpreted and dictated the examination. Ihave read and agree with the above final transcribed report. 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 etiology-s/p MRI and LP , evaluated by neurology and rheumatology. Outpatient follow-up with Dr. Sue in 2 weeks and also with Dr. Allen as recommended by him. Final CSF cultures are pending. Poor bowel-bladder function control -present on admission and likely due to above. Now seems improving. Pyuria-but doubt UTI - cultures contaminated. continue to monitor. Asymptomatic. SUHAS was initially positive-but later came back negative? significance Essential hypertension-marginal BP-orthostatic hypotension Hyperglycemia, likely due to high-dose steroids, continue sliding scale coverage. Hyperlipidemia Recent left knee surgery Anxiety per history. DC Instructions 1- DC to [facility] today 2- Follow with neurology Dr. Sue in 2 weeks. 3- Follow with Dr. Allen as recommended. 4- Follow with PCP in 2-3 weeks. 5- Taper Steroids as recommended by neurology instructions as follows: Continue Prednisone at 60 mg a day for now. I have also written orders to taper the Prednisone down to 50 mg a day on February 26 and then to 40 mg a day on March 13 . She should then follow up with her outpatient physicians including Dr. Sue to determine the next step with steroids . Discharge Medications (15) Active atorvastatin 10 mg oral tablet 10 mg = 1 Tab, Oral, At Bedtime. HOLD For now until seen by neurology Claritin 10 mg oral tablet 10 mg = 1 Tab, Oral, Daily Colace 100 mg oral capsule 100 mg = 1 Cap, PRN, Oral, BID CoQ10 100 mg, Oral, Daily enoxaparin 40 mg/0.4 mL injectable solution 40 mg, SubCutaneous, Daily - for DVT prevention due to decreased ambulation Fish Oil 500 mg oral capsule 1,000 mg = 2 Cap, Oral, Daily insulin lispro 100 units/mL injectable solution Scale A:, SubCutaneous, AC and at Bedtime, per sliding scale coverage as on high dose of steroids. LORazepam 1 mg oral tablet 1 mg = 1 Tab, PRN, Oral, BID. When necessary for anxiety. losartan 25 mg oral tablet 25 mg = 1 Tab, Oral, Daily Melatonin 3 mg oral tablet 3 mg = 1 Tab, PRN, Oral, At Bedtime MiraLax 17 Gram = 1 Packet, PRN, Oral, Daily Pepcid 20 mg oral tablet 20 mg = 1 Tab, Oral, Daily predniSONE 20 mg oral tablet 60 mg = 3 Tab, Oral, Daily. Taper as per neurology instructions as mentioned above. Vitamin D3 2,000 Units, Daily Zoloft 100 mg oral tablet 100 mg = 1 Tab, Oral, Daily DC time spent: 40 minutes Cc DC summary to: PCP, neurology [facility], neurology [facility], rheumatology Dr. Allen, documented in this encounter Plan of Treatment Not on file documented as of this encounter Visit Diagnoses Not on filedocumented in this encounter
--- OUTSIDE RECORDS SUMMARY | 2024-09-11 10:49 | XMS_ITS | Referral Summary ---
Author Organization [employer] Address [address] [place] [address] Care Team Providers Care Forest Resource Specialist Name Role Phone Unavailable Primary Care Provider Unavailabl e Social History Tobacco Use Types Packs/Day Years Used Date Smoking Tobacco: Never Assessed Comments Unknown Sex and Gender Information Value Date Recorded Sex Assigned at Female 09/17/2021 5:37 PM CDT Legal Sex Female 5:37 PM CDT Gender Identity Female 09/17/2021 5:37 PM CDT Sexual Orientation Not on file Plan of Treatment Not on file
--- OUTSIDE RECORDS SUMMARY | 2024-09-11 10:49 | XMS_ITS | Encounter Summary ---
Author Organization [employer] Address [address] [place] [address] Care Team Providers Care Service Girl Name Role Phone Unavailable Primary Care Provider Unavailabl e Encounter Details Date Type Department Care Team (Late st Contact Info) Description 02/15/2019 Transcribed Document [facility] [place] [address] [place] [address] ProviderYusuf MD [address] [place] [address] Social History Tobacco Use Types Packs/Day Years [...] Conversion Note - Historical ProviderMD - 02/15/2019 10:46 AM JIG AND FIXTURE BUILDER Stroke/Warfarin Instructions Entered On: 02/15/2019 10:46 EST Performed On: 02/15/2019 10:46 EST by Giselle Stanley RN Stroke/Warfarin Instructions Stroke/TIA Discharge Ins : N/A Warfarin Discharge Ins : N/A Giselle Stanley RN - 02/15/2019 10:46 EST documented in this encounter Plan of Treatment Not on file documented as of this encounter Visit Diagnoses Not on filedocumented in this encounter
--- OUTSIDE RECORDS SUMMARY | 2024-09-11 10:49 | XMS_ITS | Encounter Summary ---
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 [address] DEWITTFRANKY STRAUSS :1945 Visit Time:02/05/2019 Your Visit Summary Your Care Team Admitting Physician - BASHIR RAYMOND MD-INT Attending Physician - BASHIR RAYMOND MD-INT Primary Care Physician - JACKIE RODRÍGUEZ (REF)MD-LACHELLE Referring Physician - YAHIR, UNKNOWN Your Diagnosis Myelopathy Weakness, Weakness Discharge Vitals Temperature 36.7 ??C Heart Rate (Monitored) 71 Respiratory Rate 17 Blood Pressure 101/63 What to do next Instructions From Your Care Team Rehabilitation: [facility] spinal cord unit/ / Discharge Summary: [phone] faxed [facility] Transportation: Car with family Follow up with Dr. Sue in 2 weeks. Follow up with Dr. Allen as recommended in 2-3 weeks. Discharge Follow Up Instructions: Follow-Up Appointments Follow Up with BRISEIDA SUE MD-GIBSON When Within 1 month Where: [address] [place] [address]- Medications What How Much When Instructions Next Dose docusate (Colace 100 mg oral capsule) 1 Capsule(s) Oral Two Times A Day as needed for Constipation enoxaparin (enoxaparin 40 mg/ 0.4 mL injectable solution) 40 Milligram(s) SubCutaneous Every Day famotidine (Pepcid 20 mg oral tablet) 1 Tablet(s) Oral Every Day insulin lispro (insulin lispro 100 units/ mL injectable solution) Scale A: SubCutaneous Before Meals and at Bedtime LORazepam (LORazepam 1 mg oral tablet) 1 Tablet(s) Oral Two Times A Day as needed for Anxiety melatonin (Melatonin 3 mg oral tablet) 1 Tablet(s) Oral At Bedtime as needed for Sleep polyethylene glycol 3350 (MiraLax) 17 Gram(s) Oral Every Day as needed for Constipation predniSONE (predniSONE 20 mg oral tablet) 3 Tablet(s) Oral Every Day atorvastatin (atorvastatin 10 mg oral tablet) 1 Tablet(s) Oral At Bedtime loratadine (Claritin 10 mg oral tablet) 1 Tablet(s) Oral Every Day losartan (losartan 25 mg oral tablet) 1 Tablet(s) Oral Every Day omega-3 polyunsaturated fatty acids (Fish Oil 500 mg oral capsule) 2 Capsule(s) Oral Every Day cholecalciferol (Vitamin D3) 2,000 Unit(s) Every Day sertraline (Zoloft 100 mg oral tablet) 1 Tablet(s) Oral Every Day ubiquinone (CoQ10) 100 Milligram(s) Oral Every Day Take your medications faithfully. Do NOT skip medication. Do NOT stop taking medications without the direction of a physician. Carry a list of your medications with you at all times, and take this medication list with you to your first follow up visit. Report any side effects. Avoid herbal remedies unless discussed with your physician. As part of your treatment plan, your physician may have prescribed a limited course of a controlled substance. This medication may be given to help people with moderate or severe pain or for other medical conditions, but there are risks involved with treatment. Common side effects may include nausea, constipation, drowsiness, sweating, itching, dry mouth, and rash. More serious side effects may include cognitive and motor impairment, like problems with thinking, concentrating, alertness, and movement (e.g. slowed reflexes), and driving and operating heavy machinery can be dangerous. It is important for you to talk to your physician if you have these side effects or questions. These controlled substances can produce physical dependence and be habit-forming if taken for an extended period of time, which means that the body has gotten used to them and may experience withdrawal symptoms if they are abruptly stopped. Withdrawal symptoms can include runny nose, sweating, goose bumps, diarrhea, abdominal cramping, rapid heartbeat, difficulty sleeping, and nervousness. Please dispose of unused and medications per your retail pharmacy guidance. 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 Manage bowel and bladder problems. ? [place] with mental health problems. ? Manage pain. [...] 02/25/2003 Document Revised: 11/02/2016 Document Reviewed: 05/21/2014 [employer] Patient Education ?? 2019 [employer] Near-Syncope Near-syncope is when you suddenly get [...] This can help with dizziness. ??? Take lbvt-aly-aqqyomc and prescription medicines only as told by [...] 08/23/2008 Document Revised: 04/20/2017 Document Reviewed: 11/19/2015 [employer] Patient Education ?? 2019 [employer] Weakness Weakness is a lack of [...] sleep you need each night. ??? Take eixz-uxv-vcxrxbh and prescription medicines only as told by [...] about working with a physical therapist or diabetes trainer to help you get stronger. ??? [...] 02/17/2009 Document Revised: 04/01/2016 Document Reviewed: 12/26/2015 [employer] Patient Education ?? 2019 [employer]. Transverse Myelitis Transverse myelitis is a condition [...] or along with diseases that make the body???s immune system mistakenly attack healthy tissues (autoimmune diseases). What increases the risk? This condition is more likely to develop in: ??? People who have an autoimmune disease, especially multiple sclerosis and neuromyelitis optica. ??? People 10???19 years old. ??? People 30???39 years old. What are the signs or [...] You may need to see a nervous accounting system expert (neurologist) to have tests, which may include: [...] Follow these instructions at home: ??? Take mcra-lev-dlfnvzz and prescription medicines only as told by [...] 02/25/2003 Document Revised: 11/07/2016 Document Reviewed: 08/13/2015 [employer] Patient Education ?? 2019 [employer]. prednisone (PRED ni vandana) Joaquina What is the most important information I should know about prednisone? You should not use prednisone if you have a fungal infection anywhere in your body. You should not stop using prednisone suddenly. Follow your doctor's instructions about tapering your dose. What is prednisone? Prednisone is a steroid that reduces inflammation in the body, and also suppresses your immune system. Prednisone is used to treat many different conditions such as hormonal disorders, skin diseases, arthritis, lupus, psoriasis, allergic conditions, ulcerative colitis, Crohn's disease, eye diseases, lung diseases, asthma, tuberculosis, blood cell disorders, kidney disorders, leukemia, lymphoma, multiple sclerosis, organ transplant rejection, swelling from a brain tumor or injury. Prednisone may also be used for purposes not listed in this medication guide. What should I discuss with my healthcare provider before taking prednisone? You should not use prednisone if you are allergic to it, or if you have a fungal infection anywhere in your body. Steroid medication can weaken your immune system, making it easier for you to get an infection or worsening an infection you already have. Tell your doctor about any illness or infection you've had within the past several weeks. Tell your doctor if you have ever had: ?? heart problems, high blood pressure, or a heart attack; ?? glaucoma or cataracts; ?? herpes infection of the eyes; ?? past or present tuberculosis; ?? a parasite infection that causes diarrhea (such as threadworms); ?? any illness that causes diarrhea; ?? underactive thyroid; ?? diabetes; ?? a stomach ulcer, diverticulitis; ?? a colostomy or ileostomy; ?? osteoporosis or low bone mineral density (steroid medication can increase your risk of bone loss); ?? low levels of calcium or potassium in your blood; ?? cirrhosis or other liver disease; ?? mental illness or psychosis; or ?? a muscle disorder such as myasthenia gravis. Long-term use of steroids may lead to bone loss (osteoporosis), especially if you smoke or drink alcohol, if you do not exercise, or if you do not get enough vitamin D or calcium in your diet. It is not known whether this medicine will harm an unborn baby. Tell your doctor if you are or plan to become . You should not breastfeed while using prednisone. How should I take prednisone? Follow all directions on your prescription label and read all medication guides or instruction sheets. Your doctor may occasionally change your dose. Use the medicine exactly as directed. Prednisone is taken daily or every other day, depending on the condition being treated. You may need to take the medicine at a certain time of day. Follow your doctor's instructions about when and how often to take this medicine. Take with food if prednisone upsets your stomach. Measure liquid medicine carefully. Use the dosing syringe provided, or use a medicine dose-measuring device (not a kitchen spoon). Swallow the delayed-release tablet whole and do not crush, chew, or break it. Prednisone can weaken (suppress) your immune system, and you may get an infection more easily. Call your doctor if you have signs of infection (fever, weakness, cold or flu symptoms, skin sores, diarrhea, frequent or recurring illness). If you have major surgery or a severe injury or infection, your prednisone dose needs may change. Make sure any doctor caring for you knows you are using this medicine. If you use this medicine long-term, you may need medical tests and vision exams. In case of emergency, wear or carry medical identification to let others know you use a steroid. You should not stop using prednisone suddenly. Follow your doctor's instructions about tapering your dose. Store at room temperature away from moisture, heat, and light. What happens if I miss a dose? Take the medicine as soon as you can, but skip the missed dose if it is almost time for your next dose. Do not take two doses at one time. What happens if I overdose? Seek emergency medical attention or call the Poison Help line at . High doses or long-term use of prednisone can lead to thinning skin, easy bruising, changes in body fat (especially in your face, neck, back, and waist), increased acne or facial hair, menstrual problems, impotence, or loss of interest in sex. What should I avoid while taking prednisone? Do not receive a 'live' vaccine while using prednisone. The vaccine may not work as well and may not fully protect you from disease. Live vaccines include measles, mumps, rubella (MMR), polio, rotavirus, typhoid, yellow fever, varicella (chickenpox), zoster (shingles), and nasal flu (influenza) vaccine. Avoid being near people who are sick or have infections. Call your doctor for preventive treatment if you are exposed to chickenpox or measles. These conditions can be serious or even fatal in people who are using steroid medicine. Avoid drinking alcohol. What are the possible side effects of prednisone? Get emergency medical help if you have signs of an allergic reaction: hives; difficult breathing; swelling of your face, lips, tongue, or throat. Call your doctor at once if you have: ?? muscle pain or weakness; ?? blurred vision, tunnel vision, eye pain, or seeing halos around lights; ?? severe depression, changes in personality, unusual thoughts or behavior; ?? bloody or tarry stools, coughing up blood or vomit that looks like coffee grounds; ?? swelling, rapid weight gain, feeling short of breath; ?? irregular heartbeats; ?? severe headache, pounding in your neck or ears; ?? decreased adrenal gland hormones--muscle weakness, tiredness, diarrhea, nausea, menstrual changes, skin discoloration, craving salty foods, and feeling light-headed; or ?? low potassium level--leg cramps, constipation, irregular heartbeats, fluttering in your chest, increased thirst or urination, numbness or tingling, muscle weakness or limp feeling. Prednisone can affect growth in children. Tell your doctor if your child is not growing at a normal rate while using this medicine. Common side effects may include: ?? weight gain (especially in your face or your upper back and torso); ?? increased appetite; ?? mood changes, trouble sleeping; ?? changes in your menstrual periods; ?? problems with memory or thought; ?? muscle or joint pain; ?? weakness; ?? headache, dizziness, spinning sensation; ?? nausea, bloating, loss of appetite; ?? slow wound healing; or ?? acne, increased sweating, thinning skin, bruising, pinpoint spots under your skin. This is not a complete list of side effects and others may occur. Call your doctor for medical advice about side effects. You may report side effects to FDA at 7-290-YYF-7998. What other drugs will affect prednisone? Sometimes it is not safe to use certain medications at the same time. Some drugs can affect your blood levels of other drugs you take, which may increase side effects or make the medications less effective. Tell your doctor about all your current medicines. Many drugs can affect prednisone, especially: ?? bupropion; ?? cyclosporine; ?? digoxin; ?? ketoconazole; ?? an antibiotic; ?? control pills or hormone replacement therapy; ?? a diuretic or 'water pill'; ?? insulin or oral diabetes medicine; ?? a blood thinner--warfarin, Coumadin, Jantoven; or ?? NSAIDs (nonsteroidal anti-inflammatory drugs)--aspirin, ibuprofen (Advil, Motrin), naproxen (Aleve), celecoxib, diclofenac, indomethacin, meloxicam, and others. This list is not complete and many other drugs may affect prednisone. This includes prescription and nada-wux-ohjdoyi medicines, vitamins, and herbal products. Not all possible drug interactions are listed here. Where can I get more information? Your pharmacist can provide more information about prednisone. Remember, keep this and all other medicines out of the reach of children, never share your medicines with others, and use this medication only for the indication prescribed. Every effort has been made to ensure that the information provided by [employer]') is accurate, up-to-date, and complete, but no guarantee is made to that effect. Drug information contained herein may be time sensitive. [employer] information has been compiled for use by healthcare practitioners and consumers in the [place] and therefore [employer] does not warrant that uses outside of the [place] are appropriate, unless specifically indicated otherwise. [employer] drug information does not endorse drugs, diagnose patients or recommend therapy. [employer] drug information is an informational resource designed to assist licensed healthcare practitioners in caring for their patients and/or to serve consumers viewing this service as a supplement to, and not a substitute for, the expertise, skill, knowledge and judgment of healthcare practitioners. The absence of a warning for a given drug or drug combination in no way should be construed to indicate that the drug or drug combination is safe, effective or appropriate for any given patient. [facility] does not assume any responsibility for any aspect of healthcare administered with the aid of information [facility] provides. The information contained herein is not intended to cover all possible uses, directions, precautions, warnings, drug interactions, allergic reactions, or adverse effects. If you have questions about the drugs you are taking, check with your doctor, nurse or pharmacist. Copyright 9378-1157 [employer]. Version: 10.. Revision Date: 06/15/2018. Emergency Awareness and Preventative Care STROKE is an EMERGENCY Every Minute Counts Act FAST and Check for these signs: FACE Does the face look uneven? ARM Does one arm drift down? SPEECH Does their speech sound strange? TIME Call at any sign of stroke Stroke Risk Factors Atrial Fibrillation (irregular heartbeat) Diabetes Family history of stroke Heart Disease Heavy alcohol use High Blood Pressure High Cholesterol Physical inactivity and obesity Smoking Cigarette Smoking The facts are clear, cigarette smoking will shorten your life. Smoking can cause many illnesses along the way. As a healthcare provider, we recommend that you stop smoking. Assistance with quitting is available by contacting 8-653-FGLFHydrocisionNOW. This is a free resource providing counseling, support, and referral. Or you may contact your personal physician. National Suicide Prevention Lifeline: The National Suicide Prevention Lifeline is a national network of local crisis centers that provides free and confidential emotional support to people in suicidal crisis or emotional distress 24 hours a day, 7 days a week. Don't Wait! Stop a Heart Attack Before it Starts What is a heart attack? A heart attack is damage or to a part of the heart from severely decreased or lack of blood flow to the heart. Over time, arteries can become narrow from the buildup of fat and cholesterol, which is called plaque. The plaque can rupture causing a blood clot to form. When the blood clot forms, the artery can become severely narrowed or completely blocked, causing a heart attack. Heart attack is the leading cause of in the [place]. 85% of muscle damage occurs within the first 2 hours. Delay in the recognition of heart attack symptoms increases the chances of . Know the early symptoms of a heart attack: Nausea Feeling of fullness in chest Jaw Pain Pain that travels down one or both arms Fatigue/being tired Anxiety Back Pain Chest pressure, squeezing, or discomfort Shortness of breath Sweating, or a cold sweat Feeling of impending doom There are unusual signs of a heart attack, too! Women, the elderly, and diabetics may present with atypical symptoms: Fainting/dizziness Weakness Confusion Risk Factors for a Heart Attack Some heart disease risk factors, such as age and family history, cannot be changed. Others, like smoking and lack of exercise, can be changed. Smoking High Cholesterol High Blood Pressure Family History Obesity Age Gender (Males are at higher risk) Lack of Exercise Diabetes Diet Stress Excessive Alcohol Intake If you or someone you know is experiencing the signs and symptoms of a heart attack, DON???T DELAY. Call immediately and seek help. If someone collapses, perform CPR! Do not attempt to drive if you are having symptoms of heart attack. Hands-Only CPR Why Hands-Only CPR? Hands-Only CPR has been shown to be as effective as conventional CPR for cardiac arrests that occur outside of a hospital. Survival depends on immediately receiving CPR from someone nearby. How do you perform Hands-Only CPR? There are two easy steps: Call if you see a teen or adult collapse Push hard and fast in the center of the chest at a beat of 100 beats per minute. Save a life! 4 WAYS TO GET AHEAD OF SEPSIS SEPSIS is a MEDICAL EMERGENCY. Time matters! Infections put you and your family at risk for a life-threatening condition called sepsis. Sepsis is the body's extreme response to an infection. It is life-threatening, and without timely treatment, sepsis can rapidly lead to tissue damage, organ failure, and . Sepsis happens when an infection you already have-in your skin, lungs, urinary tract or somewhere else-triggers a chain reaction throughout your body. 1 PREVENT INFECTIONS Take good care of chronic conditions. Talk to your doctor about getting the recommended vaccines. 2 PRACTICE GOOD HYGIENE Wash your hands frequently. Keep cuts or open sores clean and covered until they are healed. 3 KNOW THE SYMPTOMS Confusion or disorientation Shortness of breath High heart rate Fever, shivering, or feeling very cold Extreme pain or discomfort Clammy or sweaty skin 4 ACT FAST Get medical care IMMEDIATELY if you suspect sepsis or if you have an infection that is not getting better or is getting worse. To learn more about sepsis and how to prevent infections, visit www.cdc.gov/sepsis. Test Results Laboratory or Other Results This Visit (last charted value for your 02/05/2019 visit) Hematology 02/14/2019 4:21 AM WBC: 8.8 K/uL -- Normal range between ( 4.5 and 10.5 ) RBC: 4.06 Million/uL -- Normal range between ( 3.93 and 5.22 ) Hct: 35.6 % -- Normal range between ( 34.1 and 44.9 ) Hgb: 12.1 g/dL -- Normal range between ( 11.2 and 15.7 ) Platelet Count: 187 K/uL -- Normal range between ( 163 and 369 ) MCH: 29.8 pg -- Normal range between ( 25.6 and 32.2 ) MCHC: 34.0 Gram/dL -- Normal range between ( 32.2 and 36.5 ) MCV: 87.7 fL -- Normal range between ( 79.0 and 94.8 ) Slide Review: No Eos %: 0.9 % -- Normal range between ( 0.0 and 7.0 ) [place] #: 0.75 K/uL -- Normal range between ( 0.16 and 1.00 ) Eos #: 0.08 x10(3)/uL -- Normal range between ( 0.00 and 0.80 ) [place] %: 8.5 % -- Normal range between ( 3.0 and 9.0 ) Baso %: 0.2 % -- Normal range between ( 0.0 and 1.5 ) Baso #: 0.02 x10(3)/uL -- Normal range between ( 0.00 and 0.20 ) RDW: 13.2 % -- Normal range between ( 11.7 and 14.9 ) Neut %: 57.1 % -- Normal range between ( 34.0 and 71.0 ) Neut #: 5.04 K/uL -- Normal range between ( 1.56 and 6.13 ) Lymph %: 32.7 % -- Normal range between ( 19.3 and 53.1 ) Lymph #: 2.88 x10(3)/uL -- Normal range between ( 1.00 and 3.90 ) MPV: 9.9 fL -- Normal range between ( 9.4 and 12.4 ) IG#: 0.05 x10(3)/uL -- Normal range between ( 0.00 and 0.05 ) IG%: 0.60 % -- Normal range between ( 0.00 and 0.60 ) 02/06/2019 6:04 AM ALYC #: 3 K/uL RBC Morphology: Normal ANC #: 3 K/uL [place] Percent Man: 9 % -- Normal range between ( 4 and 5 ) Baso Percent Man: 1 % -- Normal range between ( 0 and 1 ) Neutrophil Percent Man: 48 % -- Normal range between ( 50 and 65 ) Eos Percent Man: 1 % -- Normal range between ( 0 and 3 ) Platelet Ct Estimate: Adequate Lymph Percent Man: 41 % -- Normal range between ( 24 and 44 ) 02/05/2019 10:59 AM Sed Rate Auto: 6 mm/Hr -- Normal range between ( 0 and 30 ) Urinalysis 02/11/2019 10:29 PM Urine Nitrite: Negative Urine Leukocyte Esterase: Negative Urine Appearance: Cloudy Urine Glucose Dipstick: >=1000 Urine Blood Dipstick: Negative Urine Urobilinogen Dipstick: 0.2 EU/dL Urine Protein Dipstick: Negative Ur Amorph: 2+ Ur Bacteria: 2+ Ur Squamous Epithelial Cells: 0-2 /HPF Urine Color: Yellow Urine Ketones Dipstick: Negative Urine pH Dipstick: 6.0 -- Normal range between ( 6.0 and 8.0 ) Urine Bilirubin Dipstick: Negative Urine Specific Richardson: 1.020 -- Normal range between ( 1.005 and 1.030 ) Urine Type.: U Cath 02/05/2019 1:00 PM Urine Type: U CleanCatch Ur WBC: 2-5 /HPF Microbiology 02/06/2019 2:30 PM Cerebrospinal Fluid Culture: See Result Listeria monocytogenes: Not Detected Streptococcus agalactiae: Not Detected Streptococcus pneumoniae: Not Detected Haemophilus influenzae: Not Detected Neisseria meningitidis: Not Detected Varicella-zoster virus (VZV): Not Detected Human parechovirus: Not Detected Herpes simplex virus 2 (HSV-2): Not Detected Herpes simplex virus 1 (HSV-1): Not Detected Human herpesvirus 6 (HHV-6): Not Detected Enterovirus: Not Detected Cytomegalovirus (CMV): Not Detected Cryptococcue neoformans/gattii: Not Detected Escherichia coli K1: Not Detected 02/05/2019 1:00 PM Urine Culture: POS General Chemistry 02/15/2019 10:33 AM Glucose POC2: 78 mg/dL -- Normal range between ( 70 and 110 ) Device Comment 2: Notified MD KEATING Device Comment 1: Device Comment 1 02/14/2019 4:21 AM Creatinine Level: 0.80 mg/dL -- Normal range between ( 0.55 and 1.02 ) Sodium Level: 138 mmol/L -- Normal range between ( 136 and 146 ) Potassium Level: 3.5 mmol/L -- Normal range between ( 3.5 and 5.1 ) Chloride Level: 111 mmol/L -- Normal range between ( 102 and 112 ) Carbon Dioxide Level: 25 mmol/L -- Normal range between ( 21 and 32 ) Anion Gap: 6 -- Normal range between ( 9 and 20 ) Bilirubin Total: 0.6 mg/dL -- Normal range between ( 0.2 and 1.2 ) A/G Ratio: 0.5 -- Normal range between ( 1.1 and 2.5 ) ALT: 17 Units/Liter -- Normal range between ( 13 and 56 ) AST: 10 Units/Liter -- Normal range between ( 5 and 37 ) Globulin: 5.6 Gram/dL -- Normal range between ( 1.5 and 4.5 ) Alk Phos: 61 Units/Liter -- Normal range between ( 27 and 136 ) Bun/Creatinine: 32.5 -- Normal range between ( 8.0 and 20.0 ) Calcium Level: 8.2 mg/dL -- Normal range between ( 8.4 and 10.1 ) eGFR : >60 mL/min/1.73m2 eGFR NonAfrican: >60 mL/min/1.73m2 Glucose Level: 94 mg/dL -- Normal range between ( 74 and 106 ) Blood Urea Nitrogen: 26 mg/dL -- Normal range between ( 7 and 22 ) Protein Total: 8.2 Gram/dL -- Normal range between ( 6.4 and 8.2 ) Albumin Level: 2.6 Gram/dL -- Normal range between ( 3.4 and 5.0 ) 02/06/2019 6:04 AM CRP: 0.8 mg/dL -- Normal range between ( 0.0 and 0.9 ) Cerebral Spinal Fluid 02/06/2019 2:30 PM Glucose CSF: 58 mg/dL -- Normal range between ( 40 and 70 ) VDRL, CSF: Non Reactive Color CSF: Colorless Path Review CSF?: No WBC/Nucleated Cells Total: 1 /uL -- Normal range between ( 0 and 5 ) Lymphocytes CSF: 60 % -- Normal range between ( 40 and 80 ) Monocytes CSF: 40 % -- Normal range between ( 15 and 45 ) Neutrophils CSF: 0 % -- Normal range between ( 0 and 6 ) Tube # CSF: CSF Tube # 4 Myelin Basic Protein, CSF: 12.3 ng/mL Comment CSF: see comment Pellicle CSF: None Seen Xanthochromic CSF: None Seen Appearance CSF: Clear Protein CSF: 67 mg/dL -- Normal range between ( 15 and 45 ) Angiotensin Converting Enzyme, CSF: 3.7 Total RBC CSF: 4 /uL -- Normal range between ( 0 and 5 ) Cardiac Specific Markers 02/09/2019 6:05 AM CK: 230 Units/Liter -- Normal range between ( 26 and 192 ) Coagulation 02/11/2019 12:08 PM PT, Patient: 11.6 aPTT, Patient: 28.5 TT, Patient: 21.2 PT, Patient/Control Mix: 10.9 1 Hr Incub PT 1:1NP: 11.2 Lupus Reflex Interp: Comment: 02/06/2019 6:04 AM INR: 1.0 -- Normal range between ( 0.9 and 1.1 ) PTT: 25.9 Second(s) -- Normal range between ( 24.0 and 34.0 ) PT: 11.0 Second(s) -- Normal range between ( 9.6 and 12.0 ) Endocrinology 02/06/2019 6:04 AM Angiotensin-Converting Enzyme: 47 02/05/2019 10:59 AM TSH: 0.977 mcInt Units/mL -- Normal range between ( 0.358 and 3.740 ) Toxicology 02/06/2019 6:04 AM Copper Level: 121 ug/dL Immuno Serology 02/11/2019 12:08 PM Fluorescent Treponemal Ab: Non Reactive dRVVT: 38.6 02/10/2019 4:42 AM SUHAS: Negative 02/06/2019 6:04 AM RPR: Non Reactive SSB (LA) Autoantibody: <0.2 AI SSA (R0) Autoantibody: <0.2 AI B. burgdorferi Screen Result: <0.91 ISR PAUL Stain Note: Comment Homogeneous Pattern: 1:160 Speckled Pattern: 1:160 HIV 02/07/2019 5:02 AM HIV1/2 p24AG/AB COMBO: Non Reactive Vitamin Chemistry 02/06/2019 6:04 AM Folate Level: 16.20 ng/mL -- Normal range between ( 3.10 and 17.50 ) 02/05/2019 10:59 AM Vitamin B12 Level: 427 pg/mL -- Normal range between ( 193 and 986 ) Computed Tomography 02/14/2019 12:[address] Abdomen Pelvis WO: CT Abdomen Pelvis WO CT Chest WO: CT Chest WO Diagnostic Radiology 02/07/2019 8:32 AM CR Chest 2 Vws: CR Chest 2 Vws 02/06/2019 2:40 PM CR Fluoro GD Lumbar Punct Dx: CR Fluoro GD Lumbar Punct Dx Magnetic Resonance Imaging 02/05/2019 8:09 PM MRI Spine Cervical WO W: MRI Spine Cervical WO W MRI Spine Lumbar WO W: MRI Spine Lumbar WO W MRI Spine Thoracic WO W: MRI Spine Thoracic WO W Patient Name:FRANKY DEWITT I have received and understand this information and was given the opportunity to ask questions. Patient/Vaudeville Actor Name: Patient/Vaudeville Actor Signature: Relationship to Patient: Clinician/Hospital [place] Actor Signature: Date: documented in this encounter Plan of Treatment Not on file documented as of this encounter Visit Diagnoses Not on filedocumented in this encounter
--- OUTSIDE RECORDS SUMMARY | 2024-09-11 10:49 | XMS_ITS | Continuity of Care Document ---
Author Organization [facility], RHEUMATOLOGY SB Address [address] [place] [address] Care Team Providers Care Fitter Type Bar And Segment Name Role Phone BRISEIDA ADAM Neurologist JACKIE RODRÍGUEZ Primary Care Provider ADAM MITCHELL Medical Receptionist Assistant NATHAN AMATO Survey Interviewer [phone] Assessment Encounter Date Assessment Date Assessment LastModified by Organization Details LastModified Time 08/23/2024 08/23/2024 79-year-old fema le with dermatomyositis and interstitial lung disease. Follow-up visit. Impression and plan as detailed below: [email or web address] Not available 08/23/2024 15:24:07 Plan of Treatment Reminders Order Date Submit Date Provider Last Modified By Organization Details Last Modified Time Details Appointments RHEUM RECHECK 2024 10:30A M ADAM MITCHELL MD Not available Not available Not available NEUROLOG Y RECHECK 2025 10:30A M BRISEIDA ADAM MD Not available Not available Not available Lab None recorded . Referral None recorded . Procedures None recorded . Surgeries None recorded . Imaging None recorded . Medication Orders None recorded . Patient TargetsNo targets recorded. Patient InstructionsNo instructions recorded. Reason for Referral None Reported. Problems No Known Problems Procedures Surgical History Date Name Laterality Status Provider Name and Address Organization Details Recorded Time 024 Injection Joint/Bursa, Major, w/o US completed ADAM MITCHELL MD [address] [place], [address], [place] [facility] 01/05/2024 12:43:16 024 EKG completed NATHAN AMATO MD [address] [place], [address], [facility] 05/26/2023 13:57:01 023 PNE Implantation; Sacral Nerve completed YUKI LOCKWOOD MD [address] [place], [address], [facility] 09/09/2022 17:41:58 021 Electromyography (EMG) with Nerve Conduction Study (NCV) completed Mignon Shukla (Nicky) [facility] 06/30/2020 12:26:30 020 PTNM; single treatment completed Vonnie Charles [facility] 01/23/2020 11:06:00 020 PTNM; single treatment completed Vonnie Charles [facility] 01/17/2020 13:46:10 020 PTNM; single treatment completed Deisy Cullen [facility] 01/10/2020 13:29:52 020 PTNM; single treatment completed Domi Graham [facility] 01/02/2020 14:29:18 020 PTNM; single treatment completed Domi Graham [facility] 12/26/2019 13:31:28 020 PTNM; single treatment completed Domi Graham [facility] 12/19/2019 13:26:14 020 PTNM; single treatment completed Domi Graham [facility] 12/13/2019 13:51:54 020 PTNM; single treatment completed Domi Graham [facility] 12/05/2019 14:03:25 020 PTNM; single treatment completed Adela Valentin [facility] 11/28/2019 15:47:10 020 PTNM; single treatment completed Domi Graham [facility] 11/21/2019 14:07:01 020 PTNM; single treatment completed Domi Graham [facility] 11/14/2019 15:11:05 020 PTNM; single treatment completed Shaan Holloway [facility] 11/07/2019 14:04:30 020 Urodynamics Interpretation completed CANDY CHAVIRA MD [address] [place] [address], [address], [facility] 06/01/2019 14:09:09 020 Urodynamics completed Vonnie Charles [facility] 06/01/2019 11:52:12 020 Post Void Residual; Catheter completed Chanda Bailey [facility] 05/21/2019 14:52:47 020 repair of fistula of cervix completed Vickie Medina [facility] 12/09/2022 13:17:55 014 repair of stress incontinence by suprapubic sling completed Una Hernandezphiladelphiasmooth [facility] 02/05/2019 08:25:02 010 repair of stress incontinence by suprapubic sling completed Una Hernandezphiladelphiasmooth [facility] 02/05/2019 08:25:00 Imaging Results None recorded. Procedure Notes None recorded. Medical Equipment None Reported. Allergies Allergen ID Allergen Name Allergen Category Reaction Reaction Severity Criticality Documentation Date Start Date Code Code System Note Provider Name and Address Organization Details Recorded Time 986101 Product containin g penicilli n (product) medicatio n Not available Not available Not available 05/21/2019 43922 8001 SNOMED Chanda Bailey [facility] 0 14:08:26 661698 lisinopri l medicatio n Not available Not available Not available 05/21/2019 17881 RxNorm Chanda Bailey [facility] 0 14:08:31 965466 tramadol medicatio n rash Not available Not available 08/14/2019 19769 RxNorm swoll en eyes Olena Hays [facility] 0 09:18:52 Medications Name Sig Start Date Stop Date Status Note LastModified by Organization Details LastModified Time gentamicin 60mg xylitol capsule [67013] MIX THE CONTENTS OF 1 CAPSULE WITH DILUENT. APPLY TO AFFECTED AREAS. PERFORM TWICE DAILY. active Not Available Not Available No t Available clindamycin /mupirocin/ itraconazol e 150/20/50mg topical capsule [06333] MIX THE CONTENTS OF 1 CAPSULE WITH [...] Available Not Available gabapentin 300 mg capsule QHS 07/11 completed Not Available Not Available Not [...] 5 165.1 cm 16 /min 35.1 kg/m2 21418.9 9 g 94 % 94 % 78 /min 128 mm[Hg] 68 mm[Hg] Scott Amaral [facility] 5 15:33:40 Social History Question Answer Notes LastModified by Organizat ion Details LastModified Time Tobacco Smoking Status Former Smoker Una Martínez [facility] 02/05/2019 08:24:36 How Much Tobacco Do You Chew? None [email or web address] Information not available 05/21/2019 Live Alone Or With Others? With Others Information not available 02/05/2019 Marital Status Informat ion not available 02/05/2019 What Was The Date Of Your Most Recent Tobacco Screening? 08/23/2024 [email or web address] Information not available 08/23/2024 What Is Your Relationship Status? Information not available 07/09/2021 How Much Tobacco Do You Smoke? No [email or web address] Information not available 05/21/2019 Has Tobacco Cessation Counseling Been Provided? No [email or web address] Information not available 07/09/2021 Sex: Female Functional Status Question Answer Note LastModified by Organizat ion Details LastModified Time Do you use any illicit or recreational drugs? No [email or web address] Information not available 07/09/2021 Do you or have you ever used any other forms of tobacco or nicotine? No [email or web address] Information not available 07/09/2021 What is your level of alcohol consumption? Occasional [email or web address] Information not available 08/21/2021 Are you currently employed? No [email or web address] Information not available 06/30/2023 What is your occupation? Retired Information not available 02/05/2019 Mental Status None recorded. Family History Relationship Description Onset Age of this Age Resolved Age Notes LastModified by Organization Details LastModified Time Father Heart disease [email or web address] Not available 08:23:42 Mother Hypertensive disorder [email or web address] Not available 08:23:47 Mother Cerebrovascu lar accident [email or web address] Not available 02/05/2019 08:23:52 Medical History Condition Response Anxiety Disorder Y Arthritis Y Hypertension Y High Cholesterol Y Neurological Problems Y Gynecological HistoryNo gynecological history recorded. Obstetrics History GPAL:G 0 P 0 0 0 0 Immunizations Vaccine Type Date Status Note Provider Nam e and Address Organization Details Recorded Time Influenza, split virus, quadrivalent, preservative 1 [facility] 11:27:58 COVID-19, mRNA, LNP-S, PF, 30 mcg/0.3 mL dose 1 completed [facility] 11:28:39 COVID-19, mRNA, LNP-S, PF, 30 mcg/0.3 mL dose 1 completed [facility]/09[facility]2021 11:29:03 COVID-19, mRNA, LNP-S, PF, 30 mcg/0.3 mL dose 1 completed [facility]21 11:29:09 Past Encounters Encounter ID Performer Location Encounter Start Date Encounter Closed Date Diagnosis/Indication Diagnosis SNOMED-CT Code Diagnosis ICD10 Code Diagnosis Note [id number] ADAM MITCHELL MD RHEUMATOL [facility] [address] [place] [address] 08/23/2024 15:21:07 08/29/2024 08:57:08 Psoriasis of scalp 168870988 L40.9 Chronic and improved, maintain use of clobetasol shampoo/ scalp solution. Dermatomyositis 23555147 8 M33.90 Patient is a 79 year [...] f/u in 3 months Itching of skin 98498411 0 L29.9 Secondary to seasonal allergies and dermatomyo sitis rash. Improved since the last visit. Skin lesions are also better. She can continue with as needed hydroxyzin e. Long-term current use of immunosuppressive drug 972145203 Z79.60 12/29/23 labsCBC normalCrea tinine 1.10, GFR 48. She'll do the labs every 3 months. Chronic in terstitial lung disease 9645264010 60083 J84.9 She has evidence of mild chronic [...] arterial hypertensi on. Bilateral lower leg edema 532513188 R60.0 Secondary to venous insufficie ncy along with dependent edema Adjusted compressio n stockings during the day. Brief trial of furosemide 20 mg 3 times a week along with potassium 10 mEq. This is followed by on as needed basis Labs electrolyt es while taking the diuretic Anemia 199695420 D64.9 08/14/24CBC hemoglobin 11.6g. She was originally scheduled for a colonoscop y but was postponed due to DVT. I advised her to get a colonoscop y post bladder procedure. Health Concerns Section Related Observation LastModified by Organization Detai ls LastModified Time None Recorded Concern Status LastModified by Organization Details LastModified Time None Recorded Payers Encounter Date Sequence Insurance Name Policy Number Policy Kurtz Covered Member ID Kurtz Member ID Guarantor Name 08/23/2024 1 [place]ARE[place]ARE[place] Kelli Scott [id number] Kelli Scott 08/23/2024 2 [facility] (MEDICARE SUPPLEMENT) Kelli Soctt [id number] Kelli Scott Notes Date Note Type Note Provider Name and Address Organization Details Recorded Time 08/23/2024 text/html 79 year old gonzalez le [...] the DVT.She has seen multiple urologists and [facility] due to recurrent UTI's and had a [...] any history of malignancy. ADAM MITCHELL MD [address] [place], [address], [facility] 08/24/2024 11:15:35 OBGyn Episode No OBEpisode recorded.
--- OUTSIDE RECORDS SUMMARY | 2024-09-11 10:49 | XMS_ITS | Encounter Summary ---
Author Organization [employer] Address [address] [place] [address] Care Team Providers Care Radio Board Operator Announcer Name Role Phone Unavailable Primary Care Provider Unavailabl e Encounter Details Date Type Department Care Team (Late st Contact Info) Description 02/15/2019 Transcribed Document [facility] [place] [address] [place] [address] ProviderYusuf MD [facility] [place] [address] Social History Tobacco Use Types [...] Conversion Note - Historical ProviderMD - 02/15/2019 11:32 AM FOUNDATION COORDINATOR Final Discharge Planning Entered On: 02/15/2019 11:35 EST Performed On: 02/15/2019 11:32 EST by ALECIA GOMEZ RN-Vulcanized Fiber Unit Operator Final Discharge Planning Discharge Arrangements : Patient Post-Acute Information Patient Name: FRANKY DEWITT Gender: Female : [birth year] Age: 74 [facility] Referral(s): Service: Organization: Business Address: Phone Number: Acute Rehab [facility] [address] [facility], [place], [address] Patient Offered Choice/Affiliations Explained : Yes Transportation Needs : Family/Friend ALECIA GOMEZ RN-Vulcanized Fiber Unit Operator - 02/15/2019 11:32 EST Final Narrative Note Final Narrative Note : CM reviewed chart. CM met with pt to discuss DCP. [facility] spinal Cord unti today. will transport. IM and choice signed. Report to Rehabilitation: [facility] spinal cord unit/ Discharge Summary: [phone] faxed [facility] Follow up with Dr. Sue in 2 weeks. Pt informed. Follow up with Dr. Allen as recommended in 2-3 weeks. Pt informed. Historical Narrative Note : CM reviewed chart. RRS 32. CM met to discuss DCP. [facility] spinal cord unit today. will transport. IM and Choice signed.. Cm informed pharmacy and bedside RN. Confirmed with [facility]. No further needs noted. ALECIA GOMEZ, RN-Vulcanized Fiber Unit Operator - 02/15/19 11:02:20 ALECIA GOMEZ, RN-Vulcanized Fiber Unit Operator - 02/15/2019 11:32 EST documented in this encounter Plan of Treatment Not on file documented as of this encounter Visit Diagnoses Not on filedocumented in this encounter
--- OUTSIDE RECORDS SUMMARY | 2024-09-11 10:49 | XMS_ITS | Encounter Summary ---
Author Organization [employer] Address [address] [place] [address] Care Team Providers Care Perfume And Toilet Water Maker Name Role Phone Unavailable Primary Care Provider Unavailabl e Encounter Details Date Type Department Care Team (Late st Contact Info) Description 02/05/2019 Transcribed Document [facility] [place] [address] [place] [address] ProviderYusuf MD [facility] [place], [place] [id number] Social History Tobacco Use Types Packs/Day Years [...] - Historical ProviderMD - 02/05/2019 10:38 AM POULTRY GRADER Pain Assessment Entered On: 02/09/2019 15:20 EST Performed On: 02/09/2019 11:26 EST by Yeimi Olmos RN Intervention Information: acetaminophen Performed by Yeimi Olmos RN on 02/09/2019 10:26:00 EST acetaminophen,650mg Oral,Pain (Mild 1-3) Pain Assessment Pain Assessment : Follow-up assessment Pain Scale Goal : 3 Pain Scale Used : 0-10 Scale Yeimi Olmos RN - 02/09/2019 15:20 EST Pain Scale Intensity : 0 Yeimi Olmos RN - 02/09/2019 15:20 EST Image 4 - Images currently included in the form version of this document have not been included in the text rendition version of the form. Electronically signed by Onel Snyder Conversion Instructional Technology Teacher Cerner at 07/07/2022 10:02 PM CDT documented in this encounter Plan of Treatment Not on file documented as of this encounter Visit Diagnoses Not on filedocumented in this encounter
--- OUTSIDE RECORDS SUMMARY | 2024-09-11 10:49 | XMS_ITS | Encounter Summary ---
Author Organization [employer] Address [address] [place] [address] Care Team Providers Care Driller Brake Lining Name Role Phone Unavailable Primary Care Provider Unavailabl e Encounter Details Date Type Department Care Team (Late st Contact Info) Description 02/12/2019 Transcribed Document [facility] [place] [address] [place] [address] ProviderYusuf MD [facility] [place], [place] [address] Social History Tobacco Use Types Packs/Day Years [...] Conversion Note - Historical ProviderMD - 02/12/2019 5:20 PM RESOURCE PROGRAM TEACHER Patient: FRANKY SCOTT Age: 74 Years Sex: Female : 1945 Subjective When I last saw the patient on the , she and I decided that she would try IV steroids again and therefore , I ordered Solumedrol 250 mg q 12 hours. However, patient tells me that by late February 10, she was feeling heavy again in her extremities and she began refusing Solumedrol on the . My partner started IVIG yesterday . In two divided doses spread out over yesterday and today , she has already received 2 gm / kg of ideal body weight. The patient has tolerated the IVIG and feels a little stronger today. The patient walked 80 feet with PT and a walker today. Review of Systems - is still incontinent of urine. Objective Vitals & Measurements T: 36.4 ??C TMIN: 36.3 ??C TMAX: 36.8 ??C HR: 70(Monitored) RR: 16 BP: 100/62 SpO2: 99% Physical Exam EOMI Speech - fluent Motor - 5/5 in both arms. 4-4 +/5 in both legs. TESTS Lupus anticoagulant - pending Assessment/Plan Franky Scott is a 74-year-old female, [...] of concern for an autoimmune transverse myelitis, my partner started her on IVIG yesterday and she has already received 2 gm / kg of ideal body weight of this . The differential for her myelopathy could include one or combination of the followin. Demyelinating disease such as multiple sclerosis, acute disseminated encephalomyelitis, or even neuromyelitis optica. 2. Structural disease of her spine, such as an arteriovenous fistula or dural fistula not being seen on her MRI . 3. Infections such as syphilis, or Lyme disease. 4. An autoimmune [...] I have sent off an SUHAS screen. I also agree with rheumatology consult. 9. Given her worsening weakness of February 07 I have stopped Lipitor . 10. Will order Ativan bid prn for anxiety. 11. Given my concern for an autoimmune process , I have recommended patient consider Prednisone 60 mg a day. She agrees to this and I have started her on Prednisone 60 mg a day. 12. Patient tells me that she would like to consider inpatient Rehab unit and I think this is reasonable. I have spent over 25 minutes on this case today . Over half that time was spent counseling patient and . Medications Inpatient Biotin 1000mcg tablet, 1 [...] Tab, Oral, Daily Electronically signed by Lillian, [facility] Conversion Nurse Coordinator Cerner at 07/07/2022 9:51 PM CDT documented in this encounter Plan of Treatment Not on file documented as of this encounter Visit Diagnoses Not on filedocumented in this encounter
--- OUTSIDE RECORDS SUMMARY | 2024-09-11 10:49 | XMS_ITS | Encounter Summary ---
Author Organization [employer] Address [address] [place] [address] Care Team Providers Care Whitesmith Name Role Phone Unavailable Primary Care Provider Unavailabl e Encounter Details Date Type Department Care Team (Late st Contact Info) Description 02/15/2019 Transcribed Document [facility] [place] [address] [place] [address] ProviderYusuf MD [facility] [place], [place] [address] Social History Tobacco Use Types Packs/Day Years [...] Conversion Note - Historical ProviderMD - 02/15/2019 10:59 AM INSURANCE EXAMINING CLERK Final Discharge Planning Entered On: 02/15/2019 11:02 EST Performed On: 02/15/2019 10:59 EST by ALECIA GOMEZ RN-Fried Cake Maker Final Discharge Planning Discharge Arrangements : Patient Post-Acute Information Patient Name: FRANKY SCOTT Gender: Female : [birth year] Age: 74 Years Gely Referral(s): Service: Organization: Business Address: Phone Number: Acute Rehab [facility] [address] [facility], [place], [address] Patient Offered Choice/Affiliations Explained : Yes Transportation Needs : Family/Friend Discharge To Care Management : [facility] -Inpatient Rehabilitation Facility[facility] ALECIA GOMEZ RN-Fried Cake Maker - 02/15/2019 10:59 EST Final Narrative Note Final Narrative Note : CM reviewed chart. RRS 32. CM met to discuss DCP. [facility] spinal cord unit today. will transport. IM and Choice signed.. Cm informed pharmacy and bedside RN. Confirmed with [facility]. No further needs noted. ALECIA GOMEZ, RN-Fried Cake Maker - 02/15/2019 10:59 EST Electronically signed by Interface, [facility] Conversion Real Estate Intern Cerner at 07/07/2022 9:55 PM CDT documented in this encounter Plan of Treatment Not on file documented as of this encounter Visit Diagnoses Not on filedocumented in this encounter
--- OUTSIDE RECORDS SUMMARY | 2024-09-11 10:49 | XMS_ITS | Encounter Summary ---
Author Organization [employer] Address [address] [place] [address] Care Team Providers Care Smoke Jumper Name Role Phone Unavailable Primary Care Provider Unavailabl e Encounter Details Date Type Department Care Team (Late st Contact Info) Description 02/11/2019 Transcribed Document [facility] [place] Family Medicine [address] [place] [address] ProviderYusuf MD [facility] [place] [id number] Social History Tobacco Use Types Packs/Day Years [...] Conversion Note - Historical ProviderMD - 02/11/2019 1:30 PM C SOFTWARE DEVELOPER Pain Assessment Entered On: 02/11/2019 15:30 EST Performed On: 02/11/2019 15:50 EST by Sandra Mancilla RN Intervention Information: acetaminophen Performed by Sandra Mancilla RN on 02/11/2019 14:50:00 EST acetaminophen,650mg Oral Pain Assessment Pain Assessment : Follow-up assessment Pain Scale Goal : 3 Pain Scale Used : 0-10 Scale Sandra Mancilla RN - 02/11/2019 15:30 EST Pain Scale Intensity : Non pain medication administration Sandra Mancilla RN - 02/11/2019 15:30 EST Image 4 - Images currently included in the form version of this document have not been included in the text rendition version of the form. documented in this encounter Plan of Treatment Not on file documented as of this encounter Visit Diagnoses Not on filedocumented in this encounter
--- OUTSIDE RECORDS SUMMARY | 2024-09-11 10:49 | XMS_ITS | Encounter Summary ---
Author Organization [employer] Address [address] [place] [address] Care Team Providers Care Parcel Contractor Name Role Phone Unavailable Primary Care Provider Unavailabl e Encounter Details Date Type Department Care Team (Late st Contact Info) Description 02/15/2019 Transcribed Document [facility] [address] [place] [address] ProviderYusuf MD [facility] [place], [place] [id number] Social History Tobacco Use Types Packs/Day Years [...] Conversion Note - Historical ProviderMD - 02/15/2019 5:00 AM BUSINESS TECHNOLOGY TEACHER Chart Check - Review Order Profile Entered On: 02/15/2019 6:55 EST Performed On: 02/15/2019 5:00 EST by Esther Cheek RN Chart Check All Active Orders Reviewed : Yes Esther Cheek RN - 02/15/2019 6:55 EST documented in this encounter Plan of Treatment Not on file documented as of this encounter Visit Diagnoses Not on filedocumented in this encounter
--- OUTSIDE RECORDS SUMMARY | 2024-09-11 10:49 | XMS_ITS | Encounter Summary ---
Author Organization [employer] Address [address] [place] [address] Care Team Providers Care Sleeve Setter Name Role Phone Unavailable Primary Care Provider Unavailabl e Encounter Details Date Type Department Care Team (Late st Contact Info) Description 02/16/2019 Transcribed Document [facility] [place] Family Medicine [address] [place] [address] ProviderYusuf MD [facility] [place] [address] Social History Tobacco Use Types Packs/Day Years Used Date Smoking Tobacco: Never Assessed Comments Unknown Sex and Gender Information Value Date Recorded Sex Assigned at Female 09/17/2021 5:37 PM CDT Legal Sex Female 5:37 PM CDT Gender Identity Female 09/17/2021 5:37 PM CDT Sexual Orientation Not on file documented as of this encounter Miscellaneous Notes * Cerner Conversion Note - Historical ProviderMD - 02/16/2019 7:49 AM CATIA DESIGNER Discharge Summary, PT Entered On: 02/16/2019 7:50 EST Performed On: 02/16/2019 7:49 EST by ROBERT TINAJERO, PT Discharge Summary Discharge Summary Provider Notified : Nursing, Physical Therapy Reason for Discharge : Discharged from hospital Discharged to, Therapy : Unit, rehabilitation Discharge Summary Comment, PT : Per last note, pt was supervised for supine to sit to stand and to amb 250' with a Rwx. She was D/C to [facility] for follow up rehab. ROBERT TINAJERO, PT - 02/16/2019 7:49 EST Short Term Goals Mobility/Bed Mobility STG PT Grid Goal #1 Activity : Sit to stand Assist : Assist, moderate Equipment : Walker, front wheel Date to Meet : 02/17/2019 EST Goal Status : Goal met Date Met : 02/11/2019 EST Comment : re-assessed 02-10 ROBERT TINAJERO, PT - 02/16/2019 7:49 EST Transfer STG Grid Goal #1 Destination : Chair, with arms Type : Stand Pivot Sit Assist : Assist, moderate Equipment : Walker, front wheel Date to Meet : 02/17/2019 EST Goal Status : Not met Comment : re-assessed 02-10 ROBERT TINAJERO, PT - 02/16/2019 7:49 EST Ambulation STG Grid Goal #1 Goal #2 Device : Walker, front wheel Walker, front wheel Distance : 10' 100' Assist : Assist, moderate Assist, minimal Date to Meet : 02/17/2019 EST 02/18/2019 EST Goal Status : Goal met Goal met Date Met : 02/11/2019 EST 02/13/2019 EST Comment : re-assessed 02-10 ROBERT TINAJERO, PT - 02/16/2019 7:49 EST ROBERT TINAJERO, PT - 02/16/2019 7:49 EST Jail Goals Mobility/Bed Mobility LTG PT Grid Goal #1 Goal #2 Activity : Supine to sit Sit to stand Assist : Independent, modified Independent, modified Date to Meet : 02/19/2019 EST 02/24/2019 EST Goal Status : Goal met Not met Date Met : 02/09/2019 EST Comment : revised 02-10 ROBERT TINAJERO, PT - 02/16/2019 7:49 EST ROBERT TINAJERO, PT - 02/16/2019 7:49 EST Ambulation LTG Grid Goal #1 Goal #2 Goal #3 Device : Walker, front wheel Walker, front wheel Walker, front wheel Distance : 575ft 150' 250' Assist : Independent, modified Assist, minimal Supervision or set-up Date to Meet : 02/19/2019 EST 02/24/2019 EST 02/24/2019 EST Goal Status : Discontinue Goal met Goal met Date Met : 02/14/2019 EST 02/14/2019 EST Comment : 02-10 goal set Goal added 02-12 ROBERT TINAJERO, PT - 02/16/2019 7:49 EST ROBERT TINAJERO, PT - 02/16/2019 7:49 EST ROBERT TINAJERO, PT - 02/16/2019 7:49 EST documented in this encounter Plan of Treatment Not on file documented as of this encounter Visit Diagnoses Not on filedocumented in this encounter
--- OUTSIDE RECORDS SUMMARY | 2024-09-11 10:49 | XMS_ITS | Encounter Summary ---
Author Organization [employer] Address [address] [place] [address] Care Team Providers Care Packing Line Worker Name Role Phone Unavailable Primary Care Provider Unavailabl e Encounter Details Date Type Department Care Team (Late st Contact Info) Description 02/05/2019 Transcribed Document [facility] [address] [place] [address] Anne Peters MD [address] [place] [address] [address] [place] [address] Social History Tobacco Use Types Packs/Day Years [...] Note - Anne Peters MD - 02/05/2019 11:53 AM EST Patient: FRANKY DEWITT Age: 74 years Sex: Female : 1945 Associated Diagnoses: None Author: ANNE PETERS MD-INT Subjective Primary care physician Dr Bradley CRUZ Date of admission 02/05/2019 Date of discharge Referring physician Dr. Johan Sue neurology [facility] Chief complaint bilateral upper and lower [...] Her is present with her. Consultations obtained -Neurology -Physical occupational and speech therapy consultation Procedures and workup -MRI cervical thoracic and lumbar spine Hospital course 02/05 patient seen and examined history and physical done 02/06 patient Past medical history is significant for prior [...] Q4H, PRN: Nausea heparin: 5,000 Units, SubCutaneous, [id number] hydrALAZINE: 5 mg, IV Push, Q4H, PRN: Hypertension morphine: 2 mg, IV Push, Q2H, PRN: Pain (Severe 7-10), No qualifying data available , Medications (8) Active Scheduled: (2) famotidine 20 mg tab 20 mg 1 Tab, Oral, Q12H heparin 5,000 Units, SubCutaneous, [id number] Continuous: (0) PRN: (6) acetaminophen 325 mg [...] gallop, S1+ S2 No S3 or S4 [place].. Gastrointestinal: Soft, Non-tender, Non-distended, Normal bowel sounds. [...] surgery -Anxiety and depression Plan neuro checks, neuro w/u underway, Neurology consultation follow labs prn, review MRI cervical thoracic and lumbar spine Physical occupational and speech therapy consultation , Plan of care was discussed with the patient and family documented in this encounter Plan of Treatment Not on file documented as of this encounter Visit Diagnoses Not on filedocumented in this encounter
--- OUTSIDE RECORDS SUMMARY | 2024-09-11 10:49 | XMS_ITS | Data Portability ---
Author Organization [place] [facility], Main Office Address [address] [place] [address] Assessment Encounter Date Assessment Date Assessment LastModified by Organization Details LastModified Time 04/16/2022 04/16/2022 Patient presents with symptoms of UTI. Results of dipstick were for UTI. Advised to drink clear fluids, Tylenol for pain and take prescribed medications as instructed. Patient encouraged to follow up within 1 week if not improving. [place] [id number] Not available 04/16/2022 11:23:20 04/26/2022 04/26/2022 Patient presents with symptoms of UTI. Results of dipstick were for UTI. Advised to drink clear fluids, Tylenol for pain and take prescribed medications as instructed. Patient encouraged to follow up within 1 week if not improving. [place] [id number] Not available 04/26/2022 23:10:43 Plan of Treatment Reminders Order Date Submit Date Provider Last Modified By Organization Details Last Modified Time Details Appointments None recorded. Lab urinalysis, dipstick [address], [facility] [place], [address], 3 23:13:42 culture, urine 2022 023 [facility] Not available 3 15:20:14 urinalysis, dipstick 2022 023 [facility], [facility] [place], [address], 13:46:52 Referral None recorded. Procedures None recorded. Surgeries None recorded. Imaging None recorded. Medication Orders nitrofurant oin macrocrysta l 25 mg capsule 2022 023 [facility], [place], [address], 3 23:13:51 levofloxaci n 500 mg tablet 2022 023 [facility], [address], [place], [address], 13:51:05 Pyridium 200 mg tablet 2022 023 [facility], [address] [facility] [address], [place], [address], 13:49:09 Patient TargetsNo targets recorded. Patient Instructions Encounter Date Encounter Id Patient Instructions Last Modified By Organization Details Last Modified Time 04/16/2022 water intake, question of why so often she caths but that is her direction from her home urologist. Not available 04/19/2022 12:28:34 uti and infectio n and culture that will be done for verification o fthe bacteria after hour office contact instructions f/u Not available 04/19/2022 12:29:02 04/26/2022 continue water intake stop doxycycline and will try nitrofuratoin daily now at a low dose Not available 04/26/2022 23:14:22 ua results. medication change if not workign call office f/u Not available 04/26/2022 23:14:40 Reason for Referral None Reported. Results Created Date Observation Date Name Description Value Unit Range Abnormal Flag Note LastModifiedBy Organization Detail LastModifiedTime 04/16/1904/16/2022 urina lysis , dipst ick Leukocytes 25 wbc/Ul Not Available [facility] [address], [place], [address], 04/16/2022 11:23:08 04/16/19 23 04/16/2022 urina lysis , dipst ick Nitrite negati ve Not Available [facility] [address], [place], [address], 04/16/2022 11:23:08 04/16/19 23 04/16/2022 urina lysis , dipst ick Urobilinogen negati ve Not Available [facility] [address], [place], [address], 04/16/2022 11:23:08 04/16/19 23 04/16/2022 urina lysis , dipst ick Protein positi ve Not Available [facility] [address], [place], [address], 04/16/2022 11:23:08 04/16/19 23 04/16/2022 urina lysis , dipst ick pH 5.5 Not Available [facility] [address], [place], [address], 04/16/2022 11:23:08 04/16/19 23 04/16/2022 urina lysis , dipst ick Blood negati ve Not Available [facility] [address], [place], [address], 04/16/2022 11:23:08 04/16/19 23 04/16/2022 urina lysis , dipst ick Specific [place] 1.020 Not Available [facility] [address], [place], [address], 04/16/2022 11:23:08 04/16/19 23 04/16/2022 urina lysis , dipst ick Ketone negati ve Not Available [facility] [address], [place], [address], 04/16/2022 11:23:08 04/16/19 23 04/16/2022 urina lysis , dipst ick Bilirubin negati ve Not Available [facility] [address], [place], [address], 04/16/2022 11:23:08 04/16/19 23 04/16/2022 urina lysis , dipst ick Glucose negati ve Not Available [facility] [address], [place], [address], 04/16/2022 11:23:08 04/16/19 23 04/16/2022 urina lysis , dipst ick Appearance clear Not Available [facility] [address], [place], [address], 04/16/2022 11:23:08 04/16/19 23 04/16/2022 urina lysis , dipst ick Color lt yellow Not Available [facility] [address], [place], [address], 04/16/2022 11:23:08 04/26/19 23 04/26/2022 urina lysis , dipst ick Leukocytes negati ve Not Available [facility] [address], [place], [address], 04/26/2022 13:49:34 04/26/19 23 04/26/2022 urina lysis , dipst ick Nitrite negati ve Not Available [facility] [address], [place], [address], 04/26/2022 13:49:34 04/26/19 23 04/26/2022 urina lysis , dipst ick Urobilinogen negati ve Not Available [facility] [address], [place], [address], 04/26/2022 13:49:34 04/26/19 23 04/26/2022 urina lysis , dipst ick Protein negati ve Not Available [facility] [address], [place], [address], 04/26/2022 13:49:34 04/26/19 23 04/26/2022 urina lysis , dipst ick pH 5.5 Not Available [place] [address], [place], [address], 04/26/2022 13:49:34 04/26/19 23 04/26/2022 urina lysis , dipst ick Blood negati ve Not Available [facility] [address], [place], [address], 04/26/2022 13:49:34 04/26/19 23 04/26/2022 urina lysis , dipst ick Specific [place] 1.020 Not Available [place] [address], [place], [address], 04/26/2022 13:49:34 04/26/19 23 04/26/2022 urina lysis , dipst ick Ketone negati ve Not Available [place] [address], [place], [address], 04/26/2022 13:49:34 04/26/19 23 04/26/2022 urina lysis , dipst ick Bilirubin negati ve Not Available [place] [address], [place], [address], 04/26/2022 13:49:34 04/26/19 23 04/26/2022 urina lysis , dipst ick Glucose negati ve Not Available [facility] [address], [place], [address], 04/26/2022 13:49:34 04/26/19 23 04/26/2022 urina lysis , dipst ick Appearance clear Not Available [facility] [address], [place], [address], 04/26/2022 13:49:34 04/26/19 23 04/26/2022 urina lysis , dipst ick Color lt yellow Not Available [facility] [address], [place], [address], 04/26/2022 13:49:34 Result Notes None recorded. Procedures Surgical History Date Name Laterality Status Provider Name and Address Organization Details Recorded Time 03/21/19 20 bone density scan completed [facility] 04/16/2022 13:53:17 Tonsillectomy completed [facility] 04/16/2022 13:52:08 Imaging Results None recorded. Procedure Notes None recorded. Medical Equipment None Reported. Allergies Allergen ID Allergen Name Allergen Category Reaction Reaction Severity Criticality Documentation Date Start Date Code Code System Note Provider Name and Address Organization Details Recorded Time 3784 Product containin g penicilli n (product) medicatio n Not available Not available Not available 04/16/2022 27375 8001 SNOMED JIMBO Dozier [address] [place], [address], [facility] 3 11:22:11 3786 lisinopri l medicatio n Not available Not available Not available 04/16/2022 52579 RxNorm JIMBO Dozier [address] [facility], [place], [address], [facility] 3 11:22:18 3787 tramadol medicatio n Not available Not available Not available 04/16/2022 43758 RxNorm JIMBO Dozier [address] [facility], [place], [address], [facility] 3 11:22:27 Medications Name Sig Start Date Stop Date Status Note LastModified by Organization Details LastModified Time oxybutynin chloride ER 15 mg tablet,exte nded release 24 hr TAKE 2 TABLETS BY MOUTH ONCE DAILY active Not Available Not Available No t Available doxycycline hyclate 100 mg capsule Take 1 capsule every day by oral route. active Not Available Not Available No t Available oxybutynin chloride ER 10 mg tablet,exte nded release 24 hr TAKE 1 TABLET BY MOUTH TWICE DAILY active Not Available Not Available No t Available Pyridium 200 mg tablet Take 1 tablet 3 times a day by oral route for 2 days. 04/26 completed Not Available Not Available Not Available ciprofloxac in 500 mg tablet active Not Available Not Available Not Available triamcinolo ne acetonide 0.1 % topical cream APPLY CREAM EXTERNALL Y TO AFFECTED AREA TWICE DAILY active Not Available Not Available No t Available doxycycline monohydrate 100 mg capsule TAKE 1 CAPSULE BY MOUTH ONCE DAILY AT BEDTIME active Not Available Not Available No t Available pantoprazol e 40 mg tablet,ulises yed release TAKE 1 TABLET BY MOUTH ONCE DAILY active Not Available Not Available No t Available losartan 25 mg tablet TAKE 1 TABLET BY MOUTH ONCE DAILY active Not Available Not Available No t Available nitrofurant oin macrocrysta l 25 mg capsule Take 1 capsule every day by oral route as directed for 90 days. 2022 active Not Available Not Available Not Avai lable magnesium 250 mg tablet Take by oral route. active Not Available Not Available No t Available levofloxaci n 500 mg tablet Take 1 tablet every 24 hours by oral route for 7 days. 04/26 completed Not Available Not Available Not Available scopolamine 1 mg over 3 days transdermal patch APPLY 1 PATCH TOPICALLY EVERY 72 HOURS active Not Available Not Available No t Available methylpredn isolone 4 mg tablets in a dose pack active Not Available Not Available Not Available nitrofurant oin monohydrate /macrocryst als 100 mg capsule TAKE 1 CAPSULE BY MOUTH TWICE DAILY FOR 7 DAYS active Not Available Not Available No t Available duloxetine 60 mg capsule,del ayed release Take 1 capsule every day by oral route. active Not Available Not Available No t Available darifenacin ER 15 mg tablet,exte nded release 24 hr Take 1 tablet every day by oral route. active Not Available Not Available No t Available pregabalin 75 mg capsule active Not Available Not Available Not Available pregabalin 150 mg capsule Take 1 capsule twice a day by oral route. active Not Available Not Available No t Available Claritin 10 mg chewable tablet Take by oral route. active Not Available Not Available No t Available Vitals Date Recorded Body height Heart rate Respiratory rate Body temperature Body mass index (BMI) Body weight Oxygen saturation Oxygen saturation in Arterial blood by Pulse oximetry Systolic blood pressure Diastolic blood pressure Provider Name and Address Organization Details Last Updated DateTime 3 165.1 cm 82 /min 16 /min 97.4 [degF] 32.4 kg/m2 18654.5 1 g 99 % 99 % 143 mm[Hg] 91 mm[Hg] JIMBO Dozier [address], [place], [address] , [facility] 3 11:25:00 Date Recorded Body height Heart rate Respiratory rate Body temperature Body mass index (BMI) Body weight Oxygen saturation Oxygen saturation in Arterial blood by Pulse oximetry Systolic blood pressure Diastolic blood pressure Provider Name and Address Organization Details Last Updated DateTime 3 165.1 cm 80 /min 16 /min 97.1 [degF] 31.9 kg/m2 30417.3 g 98 % 98 % 137 mm[Hg] 84 mm[Hg] Betzaida Pendleton [facility] 3 13:50:57 Social History Question Answer Notes LastModified by Minded Details LastModified Time Tobacco Smoking Status Never Smoker [facility], [facility] 04/16/2022 13:48:17 Are You Blind Or Do You Have Difficulty Seeing? No Information not available 04/16/2022 Are You Deaf Or Do You Have Serious Difficulty Hearing? No Information not available 04/16/2022 Do You Have Difficulty Walking Or Climbing Stairs? No Information not available 04/16/2022 Sex: Unknown Functional Status Question Answer Note LastModified by Minded Details LastModified Time Do you use any illicit or recreational drugs? No Information not available 04/16/2022 What is your level of alcohol consumption? Occasional Information not available 04/16/2022 Do you have transportation difficulties? No Information not available 04/16/2022 Are you able to walk? YESWOREST Information not available 04/16/2022 Are you able to care for yourself? Yes Information n ot available 04/16/2022 Do you have difficulty dressing or bathing? No Information not available 04/16/2022 Mental Status Question Answer Note LastModified by Organization D etails LastModified Time Do you have difficulty concentrating, remembering or making decisions? No Information no t available 04/16/2022 Family History Relationship Description Onset Age of this Age Resolved Age Notes LastModified by Organization Details LastModified Time Father Essential hypertension Not available 13:47:47 Father Diabetes mellitus Not available 2022 13:47:59 Mother Essential hypertension Not available 13:47:47 Medical History Condition Response Coronary Artery Disease N Other N Gout N Kidney Stones N Blood Diseases N Hyperthyroidism N Breast Cancer N Blood Transfusion N Hypothyroidism N Depression N COPD N Lung Disease N Defects or Inherited Disease N Developmental or Behavioral Disorders N Breast Problem N Difficulty Swallowing N Anesthesia Complications N Meniere's disease N Anxiety Disorder N Muscle, Joint, or Bone Problems N Obesity N Vision or Eye Problems N Arthritis Y Polyps N Infertility N Mental Disorder N Cancer N Varicosities N Stroke N Endometriosis N Bladder or Kidney Problems N High Cholesterol N Liver Disease N Headaches N Fibromyalgia N Kidney Disease N Allergies/Hayfever N Heart Problems Y foot care N Ear or Hearing Problems N Hospitalizations N Thyroid Problems N hypotension N GI Problems N ADD/ADHD N Skin Problems N Eating Disorder N Anemia N MRSA exposure N Constipation N Mental Illness N Ovarian Cancer N Diabetes N Bedwetting N Seizures/Epilepsy N Tuberculosis N AIDS/HIV N Congestive Heart Failure (CHF) N Eczema N Diverticulitis N Abuse/Domestic Violence N Asthma N Reflux/GERD N Hepatitis N Heart Disease N Pulmonary Embolism N Chronic Ear Infections N Pre-Eclampsia N Hypertension Y Chicken Pox N Autism Spectrum Disorder (ASD) N Osteoporosis N Thrombophilias N Gynecological HistoryNo gynecological history recorded. Obstetrics History GPAL:G 0 P 0 0 0 0 Past Encounters Encounter ID Performer Location Encounter Start Date Encounter Closed Date Diagnosis/Indication Diagnosis SNOMED-CT Code Diagnosis ICD10 Code Diagnosis Note JIMBO Dozier Main Office [address] [place] [address] 04/16/2022 10:53:57 04/16/2022 11:38:23 Recurrent urinary tract infection 386807730 N39.0 Urinary incontinence 165 707347 R32 Essential hypertension 30480605 I10 Idiopathic peripheral neuropathy 04966332 G60.9 JIMBO Dozier Main Office [address] [place] [address] 04/26/2022 09:48:59 04/26/2022 10:59:03 Recurrent urinary tract infection 626624006 N39.0 resolved. PT INSTRUCTED TO DRINK 3 BOTTLES OF WATER A DAY. Urinary incontinence 165 479274 R32 self cath 5 times daily Essential hypertension 53811481 I10 Idiopathic peripheral neuropathy 94394780 G60.9 Health Concerns Section Related Observation LastModified by Organization Detai ls LastModified Time None Recorded Concern Status LastModified by Organization Details LastModified Time None Recorded Advance Directives Directive None Recorded Payers Insurance Date Sequence Insurance Name Policy Number Policy Kurtz Covered Member ID Kurtz Member ID Guarantor Name 05/10/2022 2 [employer] (MEDICARE SUPPLEMENT) Kelli Scott [id number] Kelli Scott 04/23/2022 1 [place] Kelli Scott [id number] Kelli Scott Notes Date Note Type Note Provider Name and Address Organization Details Recorded Time 04/16/2022 text/html pt is here as a new pt for urinary frequency and burning pain with urination. . she does not empty her bladder well. she caths herself 5 times daily and is on doxycycline daily at 100 mg for prophalaxsis. no fever no flank pain, no n/v/d JIMBO Dozier [address] [place], [address], [facility] [employer] [facility] 04/25/2022 22:54:54 04/26/2022 text/html pt is here for h er UTI she has taken her medications is drinking more water. has no symptoms now, no fever. or flank pain, she continue to have incontinance, a lot is still recovering from surgery and the need to self cath 5 times daily . JIMBO Dozier [address] [place], [address], [facility] [employer] [facility] 05/16/2022 19:38:07 OBGyn Episode No OBEpisode recorded.
--- OUTSIDE RECORDS SUMMARY | 2024-09-11 10:49 | XMS_ITS | Encounter Summary ---
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 Currently no MD notes in EMR. ST will check back KENNA KIM SLP - 02/05/2019 10:53 EST documented in this encounter Plan of Treatment Not on file documented as of this encounter Visit Diagnoses Not on filedocumented in this encounter
--- OUTSIDE RECORDS SUMMARY | 2024-09-11 10:49 | XMS_ITS | Encounter Summary ---
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
--- OUTSIDE RECORDS SUMMARY | 2024-09-11 10:49 | XMS_ITS | Encounter Summary ---
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 Living Situation : Home Patient Lives With : Spouse Is the Patient a Caregiver at Home? : No Employment/Vocation : Retired Emergency Contact #1 : joseluis Emergency Contact #1 Emergency Contact #1 Relationship : spouse Emergency Contact #2 : rakan Emergency Contact #2 Emergency Contact #2 Relationship : son Enter Doctors Name : Jensen Santiago Does Patient have PCP Listed? : Yes Patient's Home Caregiver Name/Relationship : Joseluis, spouse Patient's Home Caregiver Medical Durable Power of Concrete Pipe Machine Operator Name : no Legal Guardian : No Is Guardianship Needed : No DELORIS MCDONALD [employer]lass [employer]ator - 02/06/2019 11:41 EST Initial Assessment II Sensory and Motor Deficits : Weakness Current Home Treatments and Equipment : Cane, Walker DELORIS MCDONALD Social Worker - 02/06/2019 11:41 EST Discharge Needs I Anticipated Discharge Date : 02/07/2019 EST Anticipated Discharge To, CM : Home with family care, Home with home health Current Home Treatment/Equipment : Current Home Treatment/Equipment No qualifying data available. Documentation Status Complete : Yes DELORIS MCDONALD Social Worker - 02/06/2019 11:41 EST Discharge Needs II Professional Skilled Services : Professional Skilled Services No qualifying data available. Needs Assistance with Transportation : No Discharge Options Discussed with Patient : Discharge transportation, DME, Home Health, Short term rehabilitation DELORIS MCDONALD Social Worker - 02/06/2019 11:41 EST Narrative Note Narrative Note : Talked w/ this 74 yr old W F sent as a direct admit from Dr Boyer's neurology office. Pt has tingling and weakess of both upper and lower extremities as well as inability to control bowel or bladder. Brain imaging revealed mye;opathy and pt admitted for further workup. [facility]. Just recently started using a cane or walker w/ this episode of illness. Was completely indep prior, still drives, even now. Plans to return home w/ spouse and family support at D/C. She would be agreeable to svs if indicated depending on exact eitology of illness. denies any needs now, CM will cont to follow. Pt RRS is low @ 38. DELORIS MCDONALD [employer]reglass L[employer]ator - 02/06/2019 11:41 EST documented in this encounter Plan of Treatment Not on file documented as of this encounter Visit Diagnoses Not on filedocumented in this encounter
--- OUTSIDE RECORDS SUMMARY | 2024-09-11 10:49 | XMS_ITS | Encounter Summary ---
Author Organization [employer] Address [address] [place] [address] Care Team Providers Care Cardiac Cath Tech Name Role Phone Unavailable Primary Care Provider Unavailabl e Encounter Details Date Type Department Care Team (Late st Contact Info) Description 02/15/2019 Transcribed Document [facility] [place] Family Medicine [address] [place] [address] ProviderYusuf MD [address] [place] [id number] Social History Tobacco Use Types Packs/Day Years [...] - Historical ProviderMD - 02/15/2019 10:46 AM CIVIL LAWYER Nursing Discharge Summary Entered On: 02/15/2019 10:47 EST Performed On: 02/15/2019 10:46 EST by Giselle Stanley RN Discharge Documentation Discharge Date/Time : 02/15/2019 13:40 EST Giselle Stanley RN - 02/15/2019 13:23 EST Patient Disposition, General : Discharge Discharge To : Rehabilitation unit/facility Mode Of Departure, General Discharge : Private vehicle Accompanied By, Discharge : Spouse IV Discontinued : Yes Medications Given to Patient : Yes Personal Belongings With Patient : Yes Prescriptions Given to Patient : Electronically sent Discharge Instructions Reviewed With, Opportunity For Questions Given : Patient, Spouse Patient Education Completed : Yes Teaching Method : Demonstration, Explanation Teaching Evaluation : Verbalizes understanding Giselle Stanlye RN - 02/15/2019 10:46 EST Electronically signed by Lillian [facility] Conversion Neon Tube Bender Cerner at 07/07/2022 9:49 PM CDT documented in this encounter Plan of Treatment Not on file documented as of this encounter Visit Diagnoses Not on filedocumented in this encounter
--- OUTSIDE RECORDS SUMMARY | 2024-09-11 10:49 | XMS_ITS | Encounter Summary ---
Author Organization [employer] Address [address] [place] [address] Care Team Providers Care Digital Analyst Name Role Phone Unavailable Primary Care Provider Unavailabl e Encounter Details Date Type Department Care Team (Late st Contact Info) Description 02/12/2019 Transcribed Document [facility] [place] Family Medicine [address] [place] [address] ProviderYusuf MD [address] [place] [address] Social History Tobacco Use Types Packs/Day Years [...] Note - Historical ProviderMD - 02/12/2019 5:00 AM WATCH TRAIN ASSEMBLER Chart Check - Review Order Profile Entered On: 02/12/2019 7:02 EST Performed On: 02/12/2019 5:00 EST by JAYA WASHINGTON REGISITERED_ Chart Check Powerplans Initiated/Discontinued as Appropriate : Yes All Active Orders Reviewed : Yes JAYA WASHINGTON REGISITERED_ - 02/12/2019 7:02 EST Electronically signed by Lillian [facility] Conversion Laborer Shaft Sinking Cerner at 07/07/2022 9:55 PM CDT documented in this encounter Plan of Treatment Not on file documented as of this encounter Visit Diagnoses Not on filedocumented in this encounter
--- OUTSIDE RECORDS SUMMARY | 2024-09-11 10:49 | XMS_ITS | Encounter Summary ---
Author Organization [employer] Address [address] [place] [address] Care Team Providers Care Small Kick Press Operator Name Role Phone Unavailable Primary Care Provider Unavailabl e Encounter Details Date Type Department Care Team (Late st Contact Info) Description 02/06/2019 Transcribed Document [facility] [place] Family Medicine [address] [place] [address] ProviderYusuf MD [address] [place], [place] [id number] Social History Tobacco Use Types Packs/Day Years [...] Note - Historical ProviderMD - 02/06/2019 5:00 AM TABLE GAMES FLOOR SUPERVISOR Chart Check - Review Order Profile Entered On: 02/06/2019 4:09 EST Performed On: 02/06/2019 5:00 EST by Aicha Logan, RN Chart Check Powerplans Initiated/Discontinued as Appropriate : Yes All Active Orders Reviewed : Yes Aicha Logan RN - 02/06/2019 4:09 EST Electronically signed by Onel Snyder Conversion Bullet Swaging Machine Operator Cerner at 07/07/2022 9:53 PM CDT documented in this encounter Plan of Treatment Not on file documented as of this encounter Visit Diagnoses Not on filedocumented in this encounter
--- OUTSIDE RECORDS SUMMARY | 2024-09-11 10:49 | XMS_ITS | Clinical Summary ---
Author Organization [employer] Address [address] [place] [address] Care Team Providers Care Contact Acid Plant Operator Name Role Phone Unavailable Primary [...]
--- OUTSIDE RECORDS SUMMARY | 2024-09-11 10:49 | XMS_ITS | Encounter Summary ---
Author Organization [employer] Address [address] [place] [address] Care Team Providers Care Nurse'S Assistant Name Role Phone Unavailable Primary Care Provider Unavailabl e Encounter Details Date Type Department Care Team (Late st Contact Info) Description 02/15/2019 Transcribed Document [facility] [place] Family Medicine [address] [place] [address] ProviderYusuf MD [facility] [place] [address] Social History Tobacco Use Types [...] Conversion Note - Historical ProviderMD - 02/15/2019 1:26 PM VISITOR SERVICES INFORMATION ASSISTANT [facility] [place] [address] DEWITTFRANKY STRAUSS :1945 Visit Time:02/05/2019 Your [...] next Instructions From Your Care Team Rehabilitation: [facility] spinal cord unit/ / Discharge Summary: [phone] faxed [facility] Transportation: Car with family Follow up with Dr. Sue in 2 weeks. Follow up with Dr. Allen as recommended in 2-3 weeks. Discharge Follow Up Instructions: Follow-Up Appointments Follow Up with BRISEIDA SUE MD-GIBSON When Within 1 month Where: [address] [place] [address]- Medications What How Much When Instructions Next [...] ? Manage bowel and bladder problems. ? [place] with mental health problems. ? Manage pain. [...] 02/25/2003 Document Revised: 11/02/2016 Document Reviewed: 05/21/2014 [employer] Patient Education ?? 2019 [employer] Near-Syncope Near-syncope is when you suddenly [...] This can help with dizziness. ??? Take itzx-tra-kxhrrsk and prescription medicines only as told by [...] 08/23/2008 Document Revised: 04/20/2017 Document Reviewed: 11/19/2015 [employer] Patient Education ?? 2019 [employer] Weakness Weakness is a lack of [...] sleep you need each night. ??? Take fmwv-lyz-clrmhio and prescription medicines only as told by [...] about working with a physical therapist or workplace trainer and assessor to help you get stronger. ??? Keep [...] 02/17/2009 Document Revised: 04/01/2016 Document Reviewed: 12/26/2015 [employer] Patient Education ?? 2019 [employer]. Transverse Myelitis Transverse myelitis is a condition [...] You may need to see a nervous laser systems engineer (neurologist) to have tests, which may include: [...] Follow these instructions at home: ??? Take nykh-imy-skahubm and prescription medicines only as told by [...] 02/25/2003 Document Revised: 11/07/2016 Document Reviewed: 08/13/2015 [employer] Patient Education ?? 2019 [employer]. prednisone (PRED ni vandana) Joaquina What is [...] may report side effects to FDA at 5-898-QBZ-2596. What other drugs will affect prednisone? Sometimes [...] may affect prednisone. This includes prescription and boqm-kgl-pwjwrbl medicines, vitamins, and herbal products. Not all [...] to ensure that the information provided by [employer]. ('[employer]') is accurate, up-to-date, and complete, but no guarantee is made to that effect. Drug information contained herein may be time sensitive. [employer] information has been compiled for use by healthcare practitioners and consumers in the [place] and therefore [employer] does not warrant that uses outside of the [place] are appropriate, unless specifically indicated otherwise. [employer] drug information does not endorse drugs, diagnose patients or recommend therapy. [employer] drug information is an informational resource designed [...] effective or appropriate for any given patient. [facility] does not assume any responsibility for any aspect of healthcare administered with the aid of information [facility] provides. The information contained herein is not intended to cover all possible uses, directions, precautions, warnings, drug interactions, allergic reactions, or adverse effects. If you have questions about the drugs you are taking, check with your doctor, nurse or pharmacist. Copyright 8664-6239 Ana [employer]. Version: 10.. Revision Date: 06/15/2018. Emergency Awareness [...] Assistance with quitting is available by contacting 8-777-MUDCCarrot.mxNOW. This is a free resource providing counseling, [...] range between ( 0.0 and 7.0 ) Bay #: 0.75 K/uL -- Normal range between ( 0.16 and 1.00 ) Eos #: 0.08 x10(3)/uL -- Normal range between ( 0.00 and 0.80 ) Bay %: 8.5 % -- Normal range between [...] RBC Morphology: Normal ANC #: 3 K/uL Bay Percent Man: 9 % -- Normal range [...] ) Urine Bilirubin Dipstick: Negative Urine Specific [facility]: 1.020 -- Normal range between ( 1.005 [...] was given the opportunity to ask questions. Patient/Labelling Machine Operator Name: Patient/Labelling Machine Operator Signature: Relationship to Patient: Clinician/Hospital Labelling Machine Operator Signature: Date: documented in this encounter Plan of Treatment Not on file documented as of this encounter Visit Diagnoses Not on filedocumented in this encounter
--- OUTSIDE RECORDS SUMMARY | 2024-09-11 10:49 | XMS_ITS | Encounter Summary ---
Author Organization [employer] Address [address] [place] [address] Care Team Providers Care Press And Blow Machine Tender Name Role Phone Unavailable Primary Care Provider Unavailabl e Encounter Details Date Type Department Care Team (Late st Contact Info) Description 02/12/2019 Transcribed Document [facility] [place] Family Medicine [address] [place] [address] ProviderYusuf MD [address] [place] [address] Social History Tobacco Use Types Packs/Day Years [...] Conversion Note - Historical ProviderMD - 02/12/2019 9:00 AM DAUB COLOR MIXER Pain Assessment Entered On: 02/12/2019 11:07 EST Performed On: 02/12/2019 9:50 EST by Sandra Mancilla RN Intervention Information: acetaminophen Performed by Sandra Mancilla RN on 02/12/2019 08:50:00 EST acetaminophen,650mg Oral Pain Assessment Pain Scale Goal : 3 Pain Scale Used : 0-10 Scale Sandra Mancilla RN - 02/12/2019 11:06 EST Pain Scale Intensity : Non pain medication administration Sandra Mancilla RN - 02/12/2019 11:06 EST Image 4 - Images currently included in the form version of this document have not been included in the text rendition version of the form. documented in this encounter Plan of Treatment Not on file documented as of this encounter Visit Diagnoses Not on filedocumented in this encounter
--- NOTE | 2024-09-11 10:53 | MM_ITS ---
PROCEDURE INFORMATION: Exam: MG Bilateral Screening 3D Mammography Exam date and time: 09/11/2024 10:55 AM Age: 79 years old Clinical indication: Screening examination TECHNIQUE: Imaging protocol: Bilateral Screening tomosynthesis and 2D mammography including computer-aided detection (CAD) when performed. COMPARISON: 1. MG MM DIG SCREENING MAMM BI W/CAD 03/08/2023 9:26 AM 2. MG MM DIG SCREENING MAMM BI W/CAD 09/18/2021 10:24 AM FINDINGS: MAMMOGRAPHY: Breast composition: There are scattered areas of fibroglandular density. Mass: No suspicious masses. Architectural distortion: None. Calcifications: No suspicious calcifications. Asymmetric density: None. Skin thickening: None. Axillary adenopathy: None. IMPRESSION: No mammographic evidence of malignancy. Annual screening is recommended unless otherwise clinically indicated. ASSESSMENT: BI-RADS Category 1: Negative.
== END 2024-09-11 23:59 | disposition home or self-care (01) ==
LOC: RAD 10:44
PROVIDERS: PCP Family Medicine; Visit Provider Family Medicine
DX: Z12.31 Encounter for screening mammogram for malignant neoplasm of breast (principal); R92.323 Mammographic fibroglandular density, bilateral breasts
CPT/HCPCS: 77063; 77067

== ENCOUNTER 2024-10-23 10:59 | Outpatient (CLI) | payer MEDICARE, OTHER, SELFPAY ==
--- OUTSIDE RECORDS SUMMARY | 2024-09-03 12:12 | XMS_ITS ---
Author Organization [facility] Address [address] [facility] [address] [facility] [address] [place] [id number] Care Team Providers Care Admin Secretary Name Role Phone Jensen Santiago Primary Care Provider Results Component Value Reference Range Notes Mammogram Reviewed date:09/19/2024 01:22:46 PM Interpretation:Negative Performing Lab: Notes/Report: Negative result negative REASON FOR VISIT due mamm, colonoscopy, bone density Encounters Encounter Location Date Provider Diagnosis [facility] [address] [facility] [address] [place] [id number] 09/03/2024 Jensen Santiago Screening for breast cancer Z12.39 and Screening for osteoporosis Z13.820 Assessments Encounter Date Diagnosis (ICD Code) Assessment Notes Treatment Notes Treatment Clinical Notes Section Notes 09/03/2024 Screening for breast cancer (ICD-10 - Z12.39) 09/03/2024 Screening for osteoporosis (ICD-10 - Z13.820) Plan Of Treatment Pending Test Test Name Order Date Bone density 09/03/2024 Next Appt Details Provider Name:Jensen Cazares ry, 10/23/2024 10:56:00 AM, [address] [facility], [address], [place], [id number], Progress Notes * Lan DEWITTOB: (79 yo F)Acc No.[id number]:09/03/2024 Patient: Kelli THOMAS :1945 A ge:79 Y S ex:Female Address:[address] [place] [address] [place], [address] Subjective: * Chief Complaints: * D ue [...] Date: Generated for Drew reza/Shanelle/Chetitting on: 0 10/23/2024 11:06 AM EDT
--- OUTSIDE RECORDS SUMMARY | 2024-09-07 05:33 | XMS_ITS ---
Author Organization [facility] Address [address] [facility] [address] [place] [id number] Care Team Providers Care Dry Cleaning Counter Clerk Name Role Phone Jensen Santiago Primary Care Provider [phone] Reason For Referral Diagnosis 1 Urinary retention (R 33.9) Diagnosis 2 Chronic UTI (N39.0) Diagnosis 3 Other urinary incont inence (N39.498) Diagnosis 4 Neurogenic bladder ( N31.9) [facility]erral Organization [facility] Referring Provider First Name Jensen Referring Provider Last Name Pamela Referring Provider Speciality Family Pra ctice Referred Provider Fifi Cartagena Notes Ninfa Correa 2024 08:45:29 AM > faxed referral to [facility] Urogynecology Referral Priority Routine REASON FOR VISIT Referral Encounters Encounter Location Date Provider Diagnosis [place] [address] [facility] [address] [place] [id number] 09/07/2024 Jensen Santiago Urinary retention R3 3.9 ; Other urinary incontinence N39.498 and Chronic UTI N39.0 Assessments Encounter Date Diagnosis (ICD Code) Assessment Notes Treatment Notes Treatment Clinical Notes Section Notes 09/07/2024 Urinary retention (ICD-10 - R33.9) 09/07/2024 Other urinary incontinence (ICD-10 - N39.498) 09/07/2024 Chronic UTI (ICD-10 - N39.0) Plan Of Treatment Referrals Referral Date Details 09/07/2024 09/07/2024 Next Appt Details Provider Name:Jensen Cazares ry, 10/23/2024 10:56:00 AM, [address], [address] , [place], [phone], Progress Notes * Jaci DEWITTReinaldoOB: 7 (79 yo F)Acc No.[id number]:09/07/2024 Patient: Kelli THOMAS :1945 A ge:79 Y S ex:Female Address:[address] [place], [place] [address], [address] Subjective: * Chief Complaints: * R eferral [...] 3. C hronic UTI Referral To: Fifi Cartagena Reason: 4. O thers Referral To: Fifi Cartagena Reason: * Procedure Codes: * true * Date: Generated for Drew reza/Shanelle/Chetitting on: 0 10/23/2024 11:08 AM EDT Consultation Request Notes Referral Date Referring Provider Referred Provider Not es 09/07/2024 Jensen Santiago Clarissa
--- OUTSIDE RECORDS SUMMARY | 2024-10-17 06:15 | XMS_ITS ---
Author Organization [facility] Address [address] [place] [id number] Care Team Providers Care Body Shop Technician Name Role Phone Jensen Santiago Primary Care Provider Allergies Allergen (clinical drug [...] 1.010 Ketone neg Bili neg Gluc neg REASON FOR VISIT Possible UTI Medications Medication [...] Problem Status W/U Status Risk Notes Problem Non morbid obesity (E66.9) Active confirmed Vital Signs Weight 207.8 lbs 10/17/2024 Blood pressure systolic 122 mm Hg 10/18/19 25 Blood pressure diastolic 76 mm Hg 025 Heart Rate 88 /min 10/17/2024 Height 65 in 10/17/2024 BMI 34.58 kg/m2 10/17/2024 Encounters Encounter Location Date Provider Diagnosis [facility] [address] [place] [id number] 10/17/2024 Jensen Santiago Chronic UTI N39.0 ; Pain in left [...] Non morbid obesity Discussed starting W egovy Pending Test Test Name Order Date X ray : Knee, left 10/17/2024 Next Appt Details Follow Up: via phone to repo rt test results, Reason: Provider Name:Jensen gilmore, 10/23/2024 10:56:00 AM, [address], [place], [id number], Progress Notes * Lan DEWITTOB: 7 (79 yo F)Acc No.[id number]:10/17/2024 Progress Notes Patient: Kelli THOMAS Provider: Kacie Santiago M.D. :1945 A ge:79 Y S ex:Female Date:10/17/2024 Address:[address] [place] [address] KHOI PECK, [id number] Subjective: * Chief Complaints: * 1 . [...] 12/08/18. 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 * Examination: G eneral [...] in left knee?Imaging: X ray : Knee, left3.?Non morbid obesity? Notes: Discussed starting Wegovy?? * Procedure Codes: G 2211 Complex e/[place], [address] Urinalysis, no micro, 1036F TOBACCO NON- USER, G8783 BP SCR PRFRM RCMDD DEFIND SCR INTVL, G8752 MOST RECENT SYSTOLIC BP < 140MM HG, G8754 MOST RECENT DIASTOLIC BP < 90MM HG * Follow Up: v ia phone to report test results * Images: Billing Information: * Visit Code: 86343 Office Visit, Est Pt., Level 3. * Procedure Codes: G2211 Complex e/[place]. [address] Urinalysis, no micro. 1036F TOBACCO NON-USER. G8783 BP SCR PRFRM RCMDD DEFIND SCR INTVL. G8752 MOST RECENT SYSTOLIC BP < 140MM HG. G8754 MOST RECENT DIASTOLIC BP < 90MM HG. * Electronic signature of Valencia Santiago MD on 10/23/2024 at 11:08 AM EDT Sign off status: Pending * Provider: Kacie Santiago M.D. Date: 0 10/17/2024 Generated for Drew reza/Shanelle/Berlinsmitting on: 0 10/23/2024 11:08 AM EDT History and Physical Notes * [...]
--- NOTE | 2024-10-23 11:06 | XR_ITS ---
FINAL REPORT CLINICAL HISTORY: PAIN IN LEFT KNEE FINDINGS: LEFT KNEE Three views were obtained. There is no fracture or dislocation. There is mild narrowing of the medial compartment joint space. There is sharpening of the tibial spines. Osteophyte formation is seen at the medial joint margin. There is a small ossific density adjacent to the proximal fibula measuring 6 mm. No soft tissue abnormality is identified. IMPRESSION: Mild changes of osteoarthritis. Reviewed, Interpreted and Dictated by Tonny Huffman MD Transcribed by Steffanie Nair Authenticated and [facility]
--- OUTSIDE RECORDS SUMMARY | 2024-10-23 11:06 | XMS_ITS | Encounter Summary ---
Author Organization [employer] ([place], [place], [place], [place]) Address [address] [place] [address] Care Team Providers Care Supervisor Steffen House Name Role Phone Unavailable Primary Care Provider Unavailabl e Encounter Details Date Type Department Care Team (Late st Contact Info) Description 02/13/2019 Transcribed Document [facility] Radiology 1 [place] [address] Zack Jha MD [address] [place] [address] [address] [place] [id number] Social History Tobacco Use Types Packs/Day Years [...] 02/05/[address] Johan Sue neurology [facility] Chief complaint bilateral upper and lower [...] gallop, S1+ S2 No S3 or S4 [place].. Gastrointestinal: Soft, Non-tender, Non-distended, Normal bowel sounds. [...] 6.3 (FEB 06) 7.8 (FEB 05) HB 13.7 (FEB 11) 12.6 (FEB 06) 12.8 (NOV 18) HCT 40.1 (FEB 11) 39.0 (FEB 06) 38.8 (NOV 18) Plt 254 (FEB 11) 192 (NOV ) 222 (NOV ) Na 138 (FEB 11) 139 (NOV ) 140 (NOV 18) K 4.1 (JAN 24) 3.7 (NOV ) 3.6 (NOV 18) Cl 107 (NOV 24) 108 (NOV ) 108 (NOV 18) CO2 24 (NOV 24) 29 (NOV 19) 28 (NOV 18) BUN H 37 (NOV 24) 18 (NOV 19) H 24 (NOV 18) Cr 0.90 (NOV 24) 0.90 (NOV ) 1.00 (NOV 18) Glu R H 154 (NOV ) 88 (NOV ) 97 (NOV 18) Ca 9.1 (FEB 11) 9.1 (NOV ) 9.1 (NOV 18) PT 11.0 (FEB 06) [...] complaint to look for a facility in [place], close to their home. documented in this encounter Plan of Treatment Not on file documented as of this encounter Visit Diagnoses Not on filedocumented in this encounter
--- OUTSIDE RECORDS SUMMARY | 2024-10-23 11:06 | XMS_ITS | Encounter Summary ---
Author Organization [employer] ([place], [place], [place], [place]) Address [address] [place] [address] Care Team Providers Care Biometric Screener Name Role Phone Unavailable Primary Care Provider Unavailabl e Encounter Details Date Type Department Care Team (Late st Contact Info) Description 02/08/2019 Transcribed Document [facility] [address] [place] [address] ProviderYusuf MD [facility] [address] Social History Tobacco Use Types [...] - Historical ProviderMD - 02/08/2019 12:58 AM BRANCH OPERATION EVALUATION MANAGER Event Note Entered On: 02/08/2019 1:00 EST [...]
--- OUTSIDE RECORDS SUMMARY | 2024-10-23 11:06 | XMS_ITS | Encounter Summary ---
Author Organization [employer] ([place], [place], [place], [place]) Address [address] [place] [address] Care Team Providers Care Air Conditioning Mechanic Name Role Phone Unavailable Primary Care Provider Unavailabl e Encounter Details Date Type Department Care Team (Late st Contact Info) Description 02/08/2019 Transcribed Document [facility] Radiology 1 [place] [address] Anne Peters MD [address] [place] [address] [address] [place] [id number] Social History Tobacco Use Types Packs/Day Years [...] discharge Referring physician Dr. Johan Sue neurology [facility] Chief complaint bilateral upper and lower extremity [...] At risk for sleep apnea / IMO [id number] / Confirmed, Active Problems (3) At risk [...] gallop, S1+ S2 No S3 or S4 [place].. Gastrointestinal: Soft, Non-tender, Non-distended, Normal bowel sounds. [...] (FEB 05) HCT 39.0 (FEB 06) 38.8 (JAN 18) Plt 192 (FEB 06) 222 (FEB 05) [...] (FEB 05) Radiology Results (Last 48 hours) [id number] -- 02/05/2019 10:21 CR Fluoro GD Lumbar Punct Dx (02/06/2019 14:40) Result: LUMBAR PUNCTURE AND FLUOROSCOPYHISTORY: Transverse myelitis.ATTENDING PHYSICIAN: Baljit Gee M.D.PHYSICIAN BANANA GRADER: KELSIE LuqueCPROCEDURE: After informed consent was obtained and timeout [...] Dr. Baljit Gee.Transcribed by Parker Pleitez PA-C, R.T. (N), C N M T.I have [...] and dictated by Dr. Xi Pfeiffer.Transcribed by JIMBO Sanabria-CI have personally viewed, interpreted and dictated the [...]
--- OUTSIDE RECORDS SUMMARY | 2024-10-23 11:06 | XMS_ITS | Encounter Summary ---
Author Organization [employer] ([place], [place], [place], [place]) Address [address] [place] [address] Care Team Providers Care Heat Seal Operator Name Role Phone Unavailable Primary Care Provider Unavailabl e Encounter Details Date Type Department Care Team (Late st Contact Info) Description 02/07/2019 Transcribed Document [facility] [place] [facility] [place] [address] ProviderYusuf MD [facility] [place] [address] Social History Tobacco Use Types [...] - Historical ProviderMD - 02/07/2019 5:00 AM JOB TRACER Chart Check - Review Order Profile Entered On: 02/07/2019 4:01 EST Performed On: 02/07/2019 5:00 EST by Lesly Colindres RN Chart Check All Active Orders Reviewed : Yes Lesly Colindres RN - 02/07/2019 4:01 EST documented in this encounter Plan of Treatment Not on file documented as of this encounter Visit Diagnoses Not on filedocumented in this encounter
--- OUTSIDE RECORDS SUMMARY | 2024-10-23 11:06 | XMS_ITS | Encounter Summary ---
Author Organization [employer] ([place], [place], [place], [place]) Address [address] [place] [address] Care Team Providers Care Poultry Farm Supervisor Name Role Phone Unavailable Primary Care Provider Unavailabl e Encounter Details Date Type Department Care Team (Late st Contact Info) Description 02/07/2019 Transcribed Document [facility] [place] [facility] [place] [address] ProviderYusuf MD [facility] [address] Social History Tobacco Use Types Packs/Day Years Used Date Smoking Tobacco: Never Assessed Comments Unknown Sex and Gender Information Value Date Recorded Sex Assigned at Female 09/17/2021 5:37 PM CDT Legal Sex Female 5:37 PM CDT Gender Identity Female 09/17/2021 5:37 PM CDT Sexual Orientation Not on file documented as of this encounter Miscellaneous Notes * Cerner Conversion Note - Yusuf ProviderMD - 02/07/2019 9:04 AM THERAPEUTIC RECREATION DIRECTOR On Going Discharge Planning Entered On: 02/07/2019 9:05 EST Performed On: 02/07/2019 9:04 EST by ALECIA GOMEZ RN-Tetryl Dissolver OperatorManufacturing Assembler Progress Note Discharge Arrangements : Patient Post-Acute [...] Meeting Medical Necessity : Yes ALECIA GOMEZ RN-Tetryl Dissolver Operator - 02/07/2019 9:04 EST Narrative Progress Note Narrative Progress Note : CM reviewed chart. RRS 38. Cm to room to met pt. Pt spouse in room. spouse stated that pt is off floor for Xray. Spouse stated that DCP is to discharge home with family. Possible hh if a need. CM will continue to follow for d/c needs. ALECIA GOMEZ, RN-Tetryl Dissolver Operator - 02/07/2019 9:04 EST documented in this encounter Plan of Treatment Not on file documented as of this encounter Visit Diagnoses Not on filedocumented in this encounter
--- OUTSIDE RECORDS SUMMARY | 2024-10-23 11:06 | XMS_ITS | Encounter Summary ---
Author Organization [employer] ([place], [place], [place], [place]) Address [address] [place] [address] Care Team Providers Care Contact Center Consultant Name Role Phone Unavailable Primary Care Provider Unavailabl e Encounter Details Date Type Department Care Team (Late st Contact Info) Description 02/13/2019 Transcribed Document [facility] [place] [address] [place] [address] ProviderYusuf MD [facility] [place] [address] Social History Tobacco Use Types [...] - Historical ProviderMD - 02/13/2019 2:00 AM SCHEDULING CLERK Director Of Epidemiology Details Entered On: 02/13/2019 4:00 EST Performed On: 02/13/2019 2:00 EST by JAYA W[place] REGISITERED_ Order Details Transport Mode Order Detail : [...]
--- OUTSIDE RECORDS SUMMARY | 2024-10-23 11:06 | XMS_ITS | Encounter Summary ---
Author Organization [employer] ([place], [place], [place], [place]) Address [address] [place] [address] Care Team Providers Care Curling Machine Operator Name Role Phone Unavailable Primary Care Provider Unavailabl e Encounter Details Date Type Department Care Team (Late st Contact Info) Description 02/08/2019 Transcribed Document [facility] [place] [facility] [place] [address] ProviderYusuf MD [facility] [place] [address] Social History Tobacco Use Types [...] - Historical ProviderMD - 02/08/2019 9:14 AM CONSERVATION SCIENTIST On Going Discharge Planning Entered On: 02/08/2019 9:16 EST Performed On: 02/08/2019 9:14 EST by ALECIA GOMEZ RN-Vp & General CounselPayroll Representative Progress Note Discharge Arrangements : Patient Post-Acute [...] : Clinical Condition of Patient ALECIA GOMEZ RN-Vp & General Counsel - 02/08/2019 9:14 EST Narrative Progress Note [...] to follow for d/c needs. ALECIA GOMEZ, RN-Vp & General Counsel - 02/07/19 09:05:36 ALECIA GOMEZ RN-Vp & General Counsel - 02/08/2019 9:14 EST Electronically signed by Lillian [facility] Conversion Photographic Reproduction Technician Cerner at 07/07/2022 9:59 PM CDT documented in this encounter Plan of Treatment Not on file documented as of this encounter Visit Diagnoses Not on filedocumented in this encounter
--- OUTSIDE RECORDS SUMMARY | 2024-10-23 11:06 | XMS_ITS | Encounter Summary ---
Author Organization [employer] ([place], [place], [place], [place]) Address [address] [place] [address] Care Team Providers Care Poultry Boner Name Role Phone Unavailable Primary Care Provider Unavailabl e Encounter Details Date Type Department Care Team (Late st Contact Info) Description 02/12/2019 Transcribed Document [facility] Radiology 1 [place] [address] Claudio Allen MD [facility] [place] [address] Social History Tobacco Use Types [...] Sue, and also her admitting physician, Dr. Peters. She does not have any known history of photosensitivity, joint pain or joint swelling, serositis, cytopenias, nasal and mouth sores, thrombosis, or hair loss. She does have a history of degenerative arthritis, osteoarthritis, especially involving the left knee for which she underwent arthroscopy. However, in the last few weeks prior to her admission at [facility], she noticed progressive weakness to the point [...] rate and rhythm. ABDOMEN: Soft and nontender. COMPRESSOR OPERATOR: Demonstrate ability to move both upper and [...] the patient were comfortable with the discussion. /[id number] Christiano Allen MD ROONEY/AQ / ROONEY / MODL /[id number] CC: MD Johan Leone MD Haider Abbas, MD Imran A Khan, MD Electronically signed by [facility] Conversion Cadd Drafter Cerner at 07/07/2022 9:59 PM CDT documented in this encounter Plan of Treatment Not on file documented as of this encounter Visit Diagnoses Not on filedocumented in this encounter
--- OUTSIDE RECORDS SUMMARY | 2024-10-23 11:06 | XMS_ITS | Encounter Summary ---
Author Organization [employer] ([place], [place], [place], [place]) Address [address] [place] [address] Care Team Providers Care Event Representative Name Role Phone Unavailable Primary Care Provider Unavailabl e Encounter Details Date Type Department Care Team (Late st Contact Info) Description 02/07/2019 Transcribed Document [facility] [place] [address] [place] [address] ProviderYusuf MD [facility] [place] [address] Social History Tobacco Use Types [...] - Historical ProviderMD - 02/07/2019 5:00 PM CAP INSPECTOR Chart Check - Review Order Profile Entered [...]
--- OUTSIDE RECORDS SUMMARY | 2024-10-23 11:06 | XMS_ITS | Encounter Summary ---
Author Organization [employer] ([place], [place], [place], [place]) Address [address] [place] [address] Care Team Providers Care Biomedical Engineering Technician Name Role Phone Unavailable Primary Care Provider Unavailabl e Encounter Details Date Type Department Care Team (Late st Contact Info) Description 02/08/2019 Transcribed Document [facility] [place] [facility] [place] [address] ProviderYusuf MD [facility] [place] [address] Social History Tobacco Use Types [...] - Historical ProviderMD - 02/08/2019 6:01 AM PASTRY COOK HELPER Event Note Entered On: 02/08/2019 6:04 EST [...] Lesly Colindres RN - 02/08/2019 6:01 EST documented in this encounter Plan of Treatment Not on file documented as of this encounter Visit Diagnoses Not on filedocumented in this encounter
--- OUTSIDE RECORDS SUMMARY | 2024-10-23 11:06 | XMS_ITS | Encounter Summary ---
Author Organization [employer] ([place], [place], [place], [place]) Address [address] [place] [address] Care Team Providers Care Rehab/Pre Vocational Counselor Name Role Phone Unavailable Primary Care Provider Unavailabl e Encounter Details Date Type Department Care Team (Late st Contact Info) Description 02/12/2019 Transcribed Document [facility] [place] [address] [place] [address] ProviderYusuf MD [facility] [place] [address] Social History Tobacco Use Types [...] - Historical ProviderMD - 02/12/2019 2:00 AM GRAIN TRADER Neurology Physician Assistant Details Entered On: 02/12/2019 4:19 EST Performed [...]
--- OUTSIDE RECORDS SUMMARY | 2024-10-23 11:06 | XMS_ITS | Encounter Summary ---
Author Organization [employer] ([place], [place], [place], [place]) Address [address] [place] [address] Care Team Providers Care No Bake Molder Name Role Phone Unavailable Primary Care Provider Unavailabl e Encounter Details Date Type Department Care Team (Late st Contact Info) Description 02/12/2019 Transcribed Document [facility] [place] [address] [place] [address] ProviderYusuf MD [facility] [place] [address] Social History Tobacco Use Types [...] - Historical ProviderMD - 02/12/2019 5:00 PM RETREAD OPERATOR Chart Check - Review Order Profile [...]
--- OUTSIDE RECORDS SUMMARY | 2024-10-23 11:06 | XMS_ITS | Encounter Summary ---
Author Organization [employer] ([place], [place], [place], [place]) Address [address] [place] [address] Care Team Providers Care Special Education Administrator Name Role Phone Unavailable Primary Care Provider Unavailabl e Encounter Details Date Type Department Care Team (Late st Contact Info) Description 02/07/2019 Transcribed Document [facility] Radiology 1 [place] [address] Anne Peters MD [address] [place] [address] [address] [place] [id number] Social History Tobacco Use Types Packs/Day Years [...] discharge Referring physician Dr. Johan Sue neurology [facility] Chief complaint bilateral upper and lower [...] At risk for sleep apnea / IMO [id number] / Confirmed, Active Problems (3) At risk for sleep apnea HLD (hyperlipidemia) HTN (hypertension) Objective VS/Measurements Vitals Signs (last 24 hrs) Last Charted Minimum Maximum Temp 97.7 (FEB 07 05:18) 97.7 (FEB 07:18) 98.1 (FEB 06 15:40) Mon HR 77 (FEB 07 05:18) 69 (FEB 06 15:40) 80 (FEB 06 22:00) Resp Rate 17 (FEB 07 05:18) 14 (FEB 06 15:40) 20 (FEB 06 11:41) SBP 128 (FEB 07:18) 117 (FEB 07 02:45) H 152 (FEB 06:09) DBP 82 (FEB 07 05:18) 71 (FEB 07 02:45) H 95 (FEB 06:09) MAP 102 (FEB 07:18) 84 (FEB 07 02:45) 126 (FEB 06:09) SpO2 98 (FEB 07 08:00) 94 (FEB 06 15:40) 98 (FEB 07 08:00) General: No acute distress. Eye: Normal conjunctiva. HENT: Normocephalic. Neck: Supple, No jugular venous distention. Respiratory: Lungs are clear to auscultation, Respirations are non-labored, Breath sounds are equal. Cardiovascular: Normal rate, Regular rhythm, No gallop, S1+ S2 No S3 or S4 [place].. Gastrointestinal: Soft, Non-tender, Non-distended, Normal bowel sounds. [...] (FEB 05) Plt 192 (FEB 06) 222 (NOV ) Na 139 (FEB 06) 140 (FEB 05) K 3.7 (FEB 06) 3.6 (FEB 05) Cl 108 (FEB 06) 108 (NOV 18) CO2 29 (NOV ) 28 (NOV 18) BUN 18 (FEB 06) H 24 (NOV ) Cr 0.90 (FEB 06) 1.00 (NOV 18) Glu R 88 (FEB 06) 97 (NOV 18) Ca 9.1 (FEB 06) 9.1 (NOV ) PT 11.0 (FEB 06) INR 1.0 (FEB 06) PTT 25.9 (FEB 06) AST 14 (NOV 18) ALT 26 (NOV ) ALK P 73 (NOV ) T Bili 0.3 (FEB 05) PTN 7.7 (FEB 05) ALB 3.8 (NOV ) Radiology Results (Last 48 hours) [id number] -- 02/05/2019 10:21 MRI Spine Cervical WO [...] cord from the cervicomedullary junction to the C4-M1leujb. There is mild enhancement of the cord. [...] broad-based posterior disc bulging at C4-C5. At C6-G2owppb is a central to left paracentral disc [...] FLUOROSCOPYHISTORY: Transverse myelitis.ATTENDING PHYSICIAN: Baljit Gee M.D.PHYSICIAN HOGSHEAD OPENER: JIMBO Luque-CPROCEDURE: After informed consent was obtained [...]
--- OUTSIDE RECORDS SUMMARY | 2024-10-23 11:06 | XMS_ITS | Encounter Summary ---
Author Organization [employer] ([place], [place], [place], [place]) Address [address] [place] [address] Care Team Providers Care Sales And Marketing Executive Name Role Phone Unavailable Primary Care Provider Unavailabl e Encounter Details Date Type Department Care Team (Late st Contact Info) Description 02/12/2019 Transcribed Document [facility] Radiology 1 [place] [address] Anne Peters MD [address] [place] [address] [address] [place] [id number] Social History Tobacco Use Types Packs/Day Years [...] 02/05/[address] Johan Sue neurology [facility] Chief complaint bilateral upper and lower [...] At risk for sleep apnea / IMO [id number] / Confirmed, Active Problems (3) At risk [...] gallop, S1+ S2 No S3 or S4 [place].. Gastrointestinal: Soft, Non-tender, Non-distended, Normal bowel sounds. [...] (NOV 18) HB 13.7 (FEB 11) 12.6 (NOV ) 12.8 (NOV 18) HCT 40.1 (FEB 11) 39.0 (NOV ) 38.8 (NOV 18) Plt 254 (FEB 11) 192 (NOV ) 222 (NOV 18) Na 138 (FEB 11) 139 (NOV ) 140 (NOV 18) K 4.1 (FEB 11) 3.7 (NOV ) 3.6 (NOV 18) Cl 107 (FEB 11) 108 (NOV ) 108 (NOV 18) CO2 24 (FEB 11) 29 (NOV 19) 28 (NOV 18) BUN H 37 (NOV 24) 18 (NOV 19) H 24 (NOV 18) Cr 0.90 (JAN 24) 0.90 (NOV ) 1.00 (NOV 18) [...]
--- OUTSIDE RECORDS SUMMARY | 2024-10-23 11:06 | XMS_ITS | Encounter Summary ---
Author Organization [employer] ([place], [place], [place], [place]) Address [address] [place] [address] Care Team Providers Care Coating Machine Feeder Name Role Phone Unavailable Primary Care Provider Unavailabl e Encounter Details Date Type Department Care Team (Late st Contact Info) Description 02/09/2019 Transcribed Document [facility] [place] [facility] [place] [address] ProviderYusuf MD [facility] [place] [address] Social History Tobacco Use Types [...] - Historical ProviderMD - 02/09/2019 5:08 PM PARTS REMOVER Patient: FRANKY SCOTT Age: 74 Years Sex: [...]
--- OUTSIDE RECORDS SUMMARY | 2024-10-23 11:06 | XMS_ITS | Encounter Summary ---
Author Organization [employer] ([place], [place], [place], [place]) Address [address] [place] [address] Care Team Providers Care Motion Picture Equipment Machinist Name Role Phone Unavailable Primary Care Provider Unavailabl e Encounter Details Date Type Department Care Team (Late st Contact Info) Description 02/07/2019 Transcribed Document [facility] [place] [address] [place] [address] ProviderYusuf MD [facility] [place] [address] Social History Tobacco Use Types [...] - Historical ProviderMD - 02/07/2019 7:58 AM INSIDE SALES PROFESSIONAL Spiritual Care Short Form Entered On: 02/07/2019 [...]
--- OUTSIDE RECORDS SUMMARY | 2024-10-23 11:06 | XMS_ITS | Encounter Summary ---
Author Organization [employer] ([place], [place], [place], [place]) Address [address] [place] [address] Care Team Providers Care Tile Edger Name Role Phone Unavailable Primary Care Provider Unavailabl e Encounter Details Date Type Department Care Team (Late st Contact Info) Description 02/13/2019 Transcribed Document [facility] [place] [address] [place] [address] ProviderYusuf MD [facility] [place] [address] Social History Tobacco Use Types [...] - Historical ProviderMD - 02/13/2019 5:00 AM GRIEF COUNSELOR Chart Check - Review Order Profile Entered On: 02/13/2019 6:10 EST Performed On: 02/13/2019 5:00 EST by JAYA WASHINGTON REGISITERED_NURSE Chart Check Powerplans Initiated/Discontinued as Appropriate : Yes All Active Orders Reviewed : Yes JAYA WASHINGTON REGISITERED_NURSE - 02/13/2019 6:10 EST Electronically signed by [facility] Conversion Pit Worker Power Shovel Cerner at 07/07/2022 9:56 PM CDT documented in this encounter Plan of Treatment Not on file documented as of this encounter Visit Diagnoses Not on filedocumented in this encounter
--- OUTSIDE RECORDS SUMMARY | 2024-10-23 11:06 | XMS_ITS | Encounter Summary ---
Author Organization [employer] ([place], [place], [place], [place]) Address [address] [place] [address] Care Team Providers Care Civil Drafting Technician Name Role Phone Unavailable Primary Care Provider Unavailabl e Encounter Details Date Type Department Care Team (Late st Contact Info) Description 02/12/2019 Transcribed Document [facility] Neurology - [address] [facility] [address] [place] [address] Fernando Dotson MD [address] [place] [address] Social History Tobacco Use Types [...] for transverse myelitis. She was admitted to [facility] on 02/05/2019 under the [...] 5/5 d, 5/5 b, 5/5 t, 5/5 senior financial reporting accountant rue 5/5 d, 5/5 b, 5/5 t, 5/5 senior financial reporting accountant lle 4+/5 hf, 4+/5 ke, 4+/5 df, [...] CLOUDY2 (Abnormal) 02/11/2019 22:29 EST Urine Specific [place] 1.020 02/11/2019 22:29 EST Urine pH Dipstick [...]
--- OUTSIDE RECORDS SUMMARY | 2024-10-23 11:06 | XMS_ITS | Encounter Summary ---
Author Organization [employer] ([place], [place], [place], [place]) Address [address] [place] [address] Care Team Providers Care Director Shopper Marketing Name Role Phone Unavailable Primary Care Provider Unavailabl e Encounter Details Date Type Department Care Team (Late st Contact Info) Description 02/14/2019 Transcribed Document [facility] [place] [facility] [address] ProviderYusuf [place] [address] Social History Tobacco Use Types [...] Conversion Note - Historical ProviderMD - 02/14/2019 11:30 AM ORNAMENTAL PLASTERER HELPER Attempt to Treat, OT Entered On: 02/14/2019 11:55 EST Performed On: 02/14/2019 11:[address] KUNZ OTR/Leeann Attempt to Treat Unable to Treat Due To : Patient Unavailable Inability to Treat Comment : Attempted to see patient for OTx, patient is off floor for testing. Will attempt back as schedule permits. Notification : RNMilka SARAH C., OTR/Leeann - 02/14/2019 11:54 EST documented in this encounter Plan of Treatment Not on file documented as of this encounter Visit Diagnoses Not on filedocumented in this encounter
--- OUTSIDE RECORDS SUMMARY | 2024-10-23 11:06 | XMS_ITS | Encounter Summary ---
Author Organization [employer] ([place], [place], [place], [place]) Address [address] [place] [address] Care Team Providers Care Almond Huller Name Role Phone Unavailable Primary Care Provider Unavailabl e Encounter Details Date Type Department Care Team (Late st Contact Info) Description 02/13/2019 Transcribed Document [facility] [place] [facility] [place] [address] [place] [address] Social History Tobacco Use Types [...] - Historical ProviderMD - 02/13/2019 5:00 PM JUMPBASTING MACHINE OPERATOR Chart Check - Review Order Profile Entered On: 02/13/2019 19:19 EST Performed On: 02/13/2019 17:00 EST by Giselle Stanley RN Chart Check All Active Orders Reviewed : Yes Giselle Stanley RN - 02/13/2019 19:19 EST Electronically signed by Onel Snyder Conversion Optical Effects Camera Operator Cerner at 07/07/2022 9:57 PM CDT documented in this encounter Plan of Treatment Not on file documented as of this encounter Visit Diagnoses Not on filedocumented in this encounter
--- OUTSIDE RECORDS SUMMARY | 2024-10-23 11:06 | XMS_ITS | Encounter Summary ---
Author Organization [employer] ([place], [place], [place], [place]) Address [address] [place] [address] Care Team Providers Care Farm Tractor Operator Name Role Phone Unavailable Primary Care Provider Unavailabl e Encounter Details Date Type Department Care Team (Late st Contact Info) Description 02/13/2019 Transcribed Document [facility] [place] [facility] [place] [address] ProviderYusuf MD [facility] [place] [address] Social History Tobacco Use Types [...] - Historical ProviderMD - 02/13/2019 5:04 PM SUPERVISOR TREE FRUIT AND NUT FARMING Patient: FRANKY SCOTT Age: 74 Years Sex: [...] 1 Tab, Oral, Daily Electronically signed by [facility] Conversion Java Web Architect Cerner at 07/07/2022 9:59 PM CDT documented in this encounter Plan of Treatment Not on file documented as of this encounter Visit Diagnoses Not on filedocumented in this encounter
--- OUTSIDE RECORDS SUMMARY | 2024-10-23 11:06 | XMS_ITS | Encounter Summary ---
Author Organization [employer] ([place], [place], [place], [place]) Address [address] [place] [address] Care Team Providers Care Small Machine Bindery Operator Name Role Phone Unavailable Primary Care Provider Unavailabl e Encounter Details Date Type Department Care Team (Late st Contact Info) Description 02/14/2019 Transcribed Document [facility] Radiology [address] [place] [address] Zack Jha MD [address] [place] [address] [address] [place] [id number] Social History Tobacco Use Types Packs/Day Years [...] 02/05/[address] Johan Sue neurology [facility] Chief complaint bilateral upper and lower [...] gallop, S1+ S2 No S3 or S4 [place].. Gastrointestinal: Soft, Non-tender, Non-distended, Normal bowel sounds. [...] (NOV 18) Plt 187 (FEB 14) 254 (JAN 24) 192 (NOV ) 222 (NOV 18) Na 138 (FEB 14) 138 (NOV 24) 139 (NOV ) 140 (NOV 18) K 3.5 (FEB 14) 4.1 (FEB 11) 3.7 (FEB 06) 3.6 (NOV ) Cl 111 (FEB 14) 107 (FEB 11) [...] is ongoing. DC plan: Likely tomorrow to [facility] for short-term rehabilitation. documented in this encounter Plan of Treatment Not on file documented as of this encounter Visit Diagnoses Not on filedocumented in this encounter
--- OUTSIDE RECORDS SUMMARY | 2024-10-23 11:06 | XMS_ITS | Encounter Summary ---
Author Organization [employer] ([place], [place], [place], [place]) Address [address] [place] [address] Care Team Providers Care Chrome Cleaner Name Role Phone Unavailable Primary Care Provider Unavailabl e Encounter Details Date Type Department Care Team (Late st Contact Info) Description 02/14/2019 Transcribed Document [facility] [place] [facility] [place] [address] ProviderYusuf MD [place] [address] Social History Tobacco Use Types [...] - Historical ProviderMD - 02/14/2019 2:46 PM COUNTY TAX ASSESSOR On Going Discharge Planning Entered On: 02/14/2019 14:52 EST Performed On: 02/14/2019 14:46 EST by Neva Cotto RN Care Management Progress Note Designation of Choice Signed : Yes (Comment: Patient given a list of providers for STR with associated STARS rating. Patient selected [facility]. [Neva Cotto RN - 02/14/2019 15:08 EST] [...] abdomen and pelvis with/out contrast completed. DCP: [facility] spinal cord unit tomorrow. will transport. IM and Choice signed. Historical Progress Note : Patient chose [facility] for STR. CM notified that patient has been approved for admission. Dr. Bales in to speak with patient, family and CM. Will order diagnostic scand for tomorrw and plan on admission to [facility] on , 02/15. Neva Cotto RN - [...] prefer STR. [facility] and second choice is [facility]. Referrals sent through [facility]. CM will continue to follow. Neva Cotot RN - 02/13/19 09:37:24 CM reviewed chart. Neuro consult and following, MRI Cervical Thor. and Lumbar Spine. Discussed DCP with pt including HH vs Rehab. CM Will continue to follow for d/c needs. ALECIA GOMEZ, RN-Town Marshal - 02/09/19 14:52:38 CM reviewed chart. Cm [...] to follow for d/c needs. ALECIA GOMEZ, RN-Town Marshal - 02/08/19 09:16:23 CM reviewed chart. RRS 38. Cm to room to met pt. Pt spouse in room. spouse stated that pt is off floor for Xray. Spouse stated that DCP is to discharge home with family. Possible hh if a need. CM will continue to follow for d/c needs. ALECIA GOMEZ, JONATAN-Town Marshal - 02/07/19 09:05:36 Neva Cotto RN - 02/14/2019 15:08 EST Electronically signed by Lillian [facility] Conversion Pacu Nurse Cerner at 07/07/2022 9:52 PM CDT documented in this encounter Plan of Treatment Not on file documented as of this encounter Visit Diagnoses Not on filedocumented in this encounter
--- OUTSIDE RECORDS SUMMARY | 2024-10-23 11:06 | XMS_ITS | Encounter Summary ---
Author Organization [employer] ([place], [place], [place], [place]) Address [address] [place] [address] Care Team Providers Care Piano Instructor Name Role Phone Unavailable Primary Care Provider Unavailabl e Encounter Details Date Type Department Care Team (Late st Contact Info) Description 02/13/2019 Transcribed Document [facility] [place] [facility] [place] [address] ProviderYusuf MD [facility] [place] [place] [address] Social History Tobacco Use Types [...] - Historical ProviderMD - 02/13/2019 4:17 PM MORTAR CARRIER On Going Discharge Planning Entered On: 02/13/2019 [...] Did you Attend Multidisciplinary Rounds? : Yes YadielNeva wise RN - 02/13/2019 16:17 EST Narrative Progress Note Narrative Progress Note : Patient chose [facility] for STR. CM notified that patient has been approved for admission. Dr. Bales in to speak with patient, family and CM. Will order diagnostic scand for tomorrw and plan on admission to [facility] on , 02/15. Historical Progress Note : [...] prefer STR. Patient's first choice would be [facility] and second choice is [facility]. Referrals sent through [facility]. CM will continue to follow. Neva Cotto RN - 02/13/19 09:37:24 MICHAELA reviewed chart. Neuro consult and following, MRI Cervical Thor. and Lumbar Spine. Discussed DCP with pt including HH vs Rehab. CM Will continue to follow for d/c needs. ALECIA GOMEZ RN-Cashier Credit - 02/09/19 14:52:38 CM reviewed chart. Cm [...] to follow for d/c needs. ALECIA GOMEZ, JONATAN-Cashier Credit - 02/08/19 09:16:23 CM reviewed chart. RRS 38. Cm to room to met pt. Pt spouse in room. spouse stated that pt is off floor for Xray. Spouse stated that DCP is to discharge home with family. Possible hh if a need. CM will continue to follow for d/c needs. ALECIA GOMEZ RN-Cashier Credit - 02/07/19 09:05:36 Neva Cotto RN - 02/13/2019 16:17 EST Electronically signed by Lillian [facility] Conversion Staff Submarine Warfare Officer Cerner at 07/07/2022 9:59 PM CDT documented in this encounter Plan of Treatment Not on file documented as of this encounter Visit Diagnoses Not on filedocumented in this encounter
--- OUTSIDE RECORDS SUMMARY | 2024-10-23 11:06 | XMS_ITS | Encounter Summary ---
Author Organization [employer] ([place], [place], [place], [place]) Address [address] [place] [address] Care Team Providers Care Assistant Store Director Name Role Phone Unavailable Primary Care Provider Unavailabl e Encounter Details Date Type Department Care Team (Late st Contact Info) Description 02/07/2019 Transcribed Document [facility] [place] [facility] [place] [address] ProviderYusuf MD [address] [place] [address] Social History Tobacco Use Types [...] - Historical ProviderMD - 02/07/2019 12:08 PM RUG SAMPLE BEVELER Patient: FRANKY SCOTT Age: 74 Years Sex: [...]
--- OUTSIDE RECORDS SUMMARY | 2024-10-23 11:06 | XMS_ITS | Encounter Summary ---
Author Organization [employer] ([place], [place], [place], [place]) Address [address] [place] [address] Care Team Providers Care Egg Tester Name Role Phone Unavailable Primary Care Provider Unavailabl e Encounter Details Date Type Department Care Team (Late st Contact Info) Description 02/08/2019 Transcribed Document [facility] [place] [address] ProviderYusuf [place] [address] Social History Tobacco Use Types [...] - Historical ProviderMD - 02/08/2019 5:00 PM RN UROLOGY Chart Check - Review Order Profile Entered On: 02/08/2019 20:00 EST Performed On: 02/08/2019 17:00 EST by MARK PAZ RN Chart Check All Active Orders Reviewed : Yes MARK PAZ RN - 02/08/2019 20:00 EST documented in this encounter Plan of Treatment Not on file documented as of this encounter Visit Diagnoses Not on filedocumented in this encounter
--- OUTSIDE RECORDS SUMMARY | 2024-10-23 11:06 | XMS_ITS | Encounter Summary ---
Author Organization [employer] ([place], [place], [place], [place]) Address [address] [place] [address] Care Team Providers Care Silver Solderer Name Role Phone Unavailable Primary Care Provider Unavailabl e Encounter Details Date Type Department Care Team (Late st Contact Info) Description 02/08/2019 Transcribed Document [facility] [place] [facility] [place] [address] ProviderYusuf MD [facility] [place] [address] Social History Tobacco Use Types [...] - Historical ProviderMD - 02/08/2019 5:00 AM THROAT CUTTER Chart Check - Review Order Profile Entered On: 02/08/2019 5:18 EST Performed On: 02/08/2019 5:00 EST by Lesly Colindres RN Chart Check All Active Orders Reviewed : Yes Lesly Colindres RN - 02/08/2019 5:18 EST documented in this encounter Plan of Treatment Not on file documented as of this encounter Visit Diagnoses Not on filedocumented in this encounter
--- OUTSIDE RECORDS SUMMARY | 2024-10-23 11:06 | XMS_ITS | Encounter Summary ---
Author Organization [employer] ([place], [place], [place], [place]) Address [address] [place] [address] Care Team Providers Care Womens Health Nurse Practitioner Name Role Phone Unavailable Primary Care Provider Unavailabl e Encounter Details Date Type Department Care Team (Late st Contact Info) Description 02/08/[address] [facility] [place] [facility] [place] [address] ProviderYusuf MD [facility] [place] [address] Social History Tobacco Use Types [...] - Historical ProviderMD - 02/08/2019 2:23 PM QUARRY EXTRACTION WORKER Patient: FRANKY SCOTT Age: 74 Years Sex: [...] overnight and is now wearing 02 by SD. Psychiatric - patient received some IV Lorazepam overnight for anxiety . She denies any suicidality . Objective Vitals & Measurements T: 36.6 ??C TMIN: 36.3 ??C TMAX: 36.8 ??C HR: 83(Monitored) RR: 16 BP: 143/85 SpO2: 97% WT: 80 kg Physical Exam Patient lying comfortably in bed wearing 02 by SD. Motor - 4/5 in both arms. 2/5 [...]
--- OUTSIDE RECORDS SUMMARY | 2024-10-23 11:06 | XMS_ITS | Encounter Summary ---
Author Organization [employer] ([place], [place], [place], [place]) Address [address] [place] [address] Care Team Providers Care Billet Recorder Name Role Phone Unavailable Primary Care Provider Unavailabl e Encounter Details Date Type Department Care Team (Late st Contact Info) Description 02/13/2019 Transcribed Document [facility] [place] [facility] [place] [address] ProviderYusuf MD [facility] [place] [address] Social History Tobacco Use Types [...] Cerner Conversion Note - Yusuf ProviderMD - 02/13/2019 9:25 AM CONTENT DESIGNER On Going Discharge Planning Entered On: 02/13/2019 [...] prefer STR. Patient's first choice would be [facility] [place] and second choice is [facility]. Referrals sent through [facility]. CM will continue to follow. Historical Progress Note : CM reviewed chart. Neuro consult and following, MRI Cervical Thor. and Lumbar Spine. Discussed DCP with pt including HH vs Rehab. CM Will continue to follow for d/c needs. ALECIA GOMEZ RN-Book Repairer - 02/09/19 14:52:38 CM reviewed chart. [...] to follow for d/c needs. ALECIA GOMEZ RN-Book Repairer - 02/08/19 09:16:23 CM reviewed chart. RRS 38. Cm to room to met pt. Pt spouse in room. spouse stated that pt is off floor for Xray. Spouse stated that DCP is to discharge home with family. Possible hh if a need. CM will continue to follow for d/c needs. ALECIA GOMEZ RN-Book Repairer - 02/07/19 09:05:36 Neva Cotto RN - 02/13/2019 9:25 EST Electronically signed by Lillian [facility] Conversion Rice Milling Supervisor Cerner at 07/07/2022 10:01 PM CDT documented in this encounter Plan of Treatment Not on file documented as of this encounter Visit Diagnoses Not on filedocumented in this encounter
--- OUTSIDE RECORDS SUMMARY | 2024-10-23 11:07 | XMS_ITS | Encounter Summary ---
Author Organization [employer] ([place], [place], [place], [place]) Address [address] [place] [address] Care Team Providers Care Building Energy Consultant Name Role Phone Unavailable Primary Care Provider Unavailabl e Encounter Details Date Type Department Care Team (Late st Contact Info) Description 02/14/2019 Transcribed Document [facility] [place] [facility] [place] [address] ProviderYusuf MD [facility] [place] [address] Social History Tobacco Use Types [...] - Historical ProviderMD - 02/14/2019 5:00 PM ON CALL PHARMACY TECHNICIAN Chart Check - Review Order [...]
--- OUTSIDE RECORDS SUMMARY | 2024-10-23 11:07 | XMS_ITS | Encounter Summary ---
Author Organization [employer] ([place], [place], [place], [place]) Address [address] [place] [address] Care Team Providers Care Diesel Mechanic Name Role Phone Unavailable Primary Care Provider Unavailabl e Encounter Details Date Type Department Care Team (Late st Contact Info) Description 02/10/2019 Transcribed Document [facility] [place] [address] [place] [address] ProviderYusuf MD [facility] [place] [address] Social History Tobacco Use Types [...] - Historical ProviderMD - 02/10/2019 5:00 PM ORTHOPAEDIC DOCTOR Chart Check - Review Order Profile Entered [...]
--- OUTSIDE RECORDS SUMMARY | 2024-10-23 11:07 | XMS_ITS | Encounter Summary ---
Author Organization [employer] ([place], [place], [place], [place]) Address [address] [place] [address] Care Team Providers Care Intensive Care Nurse Name Role Phone Unavailable Primary Care Provider Unavailabl e Encounter Details Date Type Department Care Team (Late st Contact Info) Description 02/05/2019 Transcribed Document [facility] Radiology [address] [place] [address] Anne Peters MD [address] [place] [address] [address] [place] [id number] Social History Tobacco Use Types Packs/Day Years [...] 02/05/[address] Johan Sue neurology [facility] Chief complaint bilateral upper and lower [...] Q4H, PRN: Nausea heparin: 5,000 Units, SubCutaneous, [id number] hydrALAZINE: 5 mg, IV Push, Q4H, PRN: Hypertension morphine: 2 mg, IV Push, Q2H, PRN: Pain (Severe 7-10), No qualifying data available , Medications (8) Active Scheduled: (2) famotidine 20 mg tab 20 mg 1 Tab, Oral, Q12H heparin 5,000 Units, SubCutaneous, [id number] Continuous: (0) PRN: (6) acetaminophen 325 mg [...] gallop, S1+ S2 No S3 or S4 [place].. Gastrointestinal: Soft, Non-tender, Non-distended, Normal bowel sounds. [...]
--- OUTSIDE RECORDS SUMMARY | 2024-10-23 11:07 | XMS_ITS | Encounter Summary ---
Author Organization [employer] ([place], [place], [place], [place]) Address [address] [place] [address] Care Team Providers Care Cleaner Housekeeping Name Role Phone Unavailable Primary Care Provider Unavailabl e Encounter Details Date Type Department Care Team (Late st Contact Info) Description 02/09/2019 Transcribed Document [facility] [place] Family Medicine [facility] [place] [address] ProviderYusuf MD [facility] [place] [address] Social History Tobacco Use Types [...] - Historical ProviderMD - 02/09/2019 5:00 PM UM NURSE Chart Check - Review Order Profile Entered On: 02/09/2019 15:20 EST Performed On: 02/09/2019 17:00 EST by Yeimi Olmos RN Chart Check Powerplans Initiated/Discontinued as Appropriate : Yes All Active Orders Reviewed : Yes Yeimi Olmos RN - 02/09/2019 15:20 EST Electronically signed by Lillian [facility] Conversion Link Trainer Maintenance Man Cerner at 07/07/2022 9:50 PM CDT documented in this encounter Plan of Treatment Not on file documented as of this encounter Visit Diagnoses Not on filedocumented in this encounter
--- OUTSIDE RECORDS SUMMARY | 2024-10-23 11:07 | XMS_ITS | Encounter Summary ---
Author Organization [employer] ([place], [place], [place], [place]) Address [address] [place] [address] Care Team Providers Care Cigar Machine Feeder Name Role Phone Unavailable Primary Care Provider Unavailabl e Encounter Details Date Type Department Care Team (Late st Contact Info) Description 02/05/2019 Transcribed Document [facility] [place] [facility] [place] [address] ProviderYusuf MD [facility] [place] [address] Social History Tobacco Use Types [...] Cerner Conversion Note - Yusuf ProviderMD - 02/05/2019 11:36 AM PUBLICIST Provider Notification Entered On: 02/06/2019 14:55 EST Performed On: 02/06/2019 11:36 EST by ROLY MEDEIROS RN Provider Notification Provider Notified of Concerns/Results : Change in status ROLY MEDEIROS RN - 02/06/2019 14:55 EST documented in this encounter Plan of Treatment Not on file documented as of this encounter Visit Diagnoses Not on filedocumented in this encounter
--- OUTSIDE RECORDS SUMMARY | 2024-10-23 11:07 | XMS_ITS | Encounter Summary ---
Author Organization [employer] ([place], [place], [place], [place]) Address [address] [place] [address] Care Team Providers Care Boiler Blower Name Role Phone Unavailable Primary Care Provider Unavailabl e Encounter Details Date Type Department Care Team (Late st Contact Info) Description 02/05/2019 Transcribed Document [facility] [place] Family Medicine [facility] [place] [address] ProviderYusuf MD [facility] [place] [address] Social History Tobacco Use Types [...] - Historical ProviderMD - 02/05/2019 10:16 AM REGULATORY AFFAIRS ASSISTANT Admission History, Adult Entered On: 02/05/2019 11:36 [...] Admit : No Emergency Contact #1 : ojseluis Emergency Contact #1 Emergency Contact #1 Relationship : spouse Emergency Contact #2 : rakan Emergency Contact #2 Emergency Contact #2 Relationship : son Chief Complaint : weakness in arms and legs since december and has worsen, numbness in feet and uncontrollable bladder and bowel funciton Information Obtained From : Patient, Spouse Primary Language : Gabonese Preferred Communication Mode : Verbal Communication Barrier [...] Level : 46 or > High Risk [place] Fall Interventions : Adequate lighting, Assistive devices [...] Source : Measured Height Entry Format : Bennett Height, Feet : 5 ft(Converted to: 152 cm, 60 Inch) Height, Inches : 5 Inch(Converted to: 0 ft 5 Inch, 12.70 cm) Clinical Height : 165.1 cm Weight Source : Bed scale Weight Entry Format : Bennett Clinical Dosing Weight : 79.09 kg Weight, Pounds : 174 lb Body Surface Area (BSA) : 1.87 m2 Body Mass Index : 29 kg/m2 (HI) [place] Body Weight : 57 kg SAVANNA VARGAS [...] SAVANNA VARGAS RN - 02/05/2019 11:27 EST [place] Suicide Severity Rating Scale (C-SSRS) CSSRS Past [...] SAVANNA VARGAS RN - 02/05/2019 11:27 EST documented in this encounter Plan of Treatment Not on file documented as of this encounter Visit Diagnoses Not on filedocumented in this encounter
--- OUTSIDE RECORDS SUMMARY | 2024-10-23 11:07 | XMS_ITS | Encounter Summary ---
Author Organization [employer] ([place], [place], [place], [place]) Address [address] [place] [address] Care Team Providers Care Railroad Purchasing Agent Name Role Phone Unavailable Primary Care Provider Unavailabl e Encounter Details Date Type Department Care Team (Late st Contact Info) Description 02/05/2019 Transcribed Document [facility] [place] [address] [place] [address] ProviderYusuf MD [facility] [place] [address] Social History Tobacco Use Types [...] - Historical ProviderMD - 02/05/2019 5:00 PM LAB COORDINATOR Chart Check - Review Order Profile Entered [...]
--- OUTSIDE RECORDS SUMMARY | 2024-10-23 11:07 | XMS_ITS | Encounter Summary ---
Author Organization [employer] ([place], [place], [place], [place]) Address [address] [place] [address] Care Team Providers Care Media Producer Name Role Phone Unavailable Primary Care Provider Unavailabl e Encounter Details Date Type Department Care Team (Late st Contact Info) Description 02/05/2019 Transcribed Document [facility] [place] [address] ProviderYusuf MD [facility] [place] [address] Social History Tobacco Use Types [...] - Historical ProviderMD - 02/05/2019 6:08 PM CLAIMS ATTORNEY DATE OF CONSULTATION: 02/05/2019 HISTORY OF PRESENT [...] , she had to attend a in [facility] where she and her spent a lot of time walking around [facility] and during that walking trip around [facility], when she tried to get her legs into an SUV, she noticed that both of her legs were weak and she was having trouble lifting her legs up to get into the SUV. When she returned back to [place] in late December, she received another steroid [...] even went to an emergency room in [facility] recently and they let her go home [...] 4. Hydrochlorothiazide. 5. Losartan. 6. Biotin. 7. [place]-3. 8. Potassium. 9. Zoloft. 10. Coenzyme Q. [...] years. SOCIAL HISTORY: The patient lives in [place] with her . She has three children. [...] through XII are intact. Coordination shows intact orgmjk-ya-zbln and gjgp-yi-enhu. Reflexes are hyperactive throughout at 2 to 3+ with bilaterally upgoing toes. Sensory exam shows intact joint position in both feet. Gait was not tested. LABORATORY DATA: The patient had an MRI scan of her brain done at [facility] on February 02 as being read, [...] her . I will follow with you. /[id number] MD ROSIO Leone/ERASMO / ROSIO / MODL /[id number] documented in this encounter Plan of Treatment Not on file documented as of this encounter Visit Diagnoses Not on filedocumented in this encounter
--- OUTSIDE RECORDS SUMMARY | 2024-10-23 11:07 | XMS_ITS | Encounter Summary ---
Author Organization [employer] ([place], [place], [place], [place]) Address [address] [place] [address] Care Team Providers Care Renewable Energy Engineer Name Role Phone Unavailable Primary Care Provider Unavailabl e Encounter Details Date Type Department Care Team (Late st Contact Info) Description 02/05/2019 Transcribed Document [facility] [place] [facility] [place] [address] ProviderYusuf MD [facility] [place] [address] Social History Tobacco Use Types [...] - Historical ProviderMD - 02/05/2019 10:38 AM HIP HOP ARTIST Education-(VTE) / (DVT) Entered On: 02/05/2019 17:17 [...]
--- OUTSIDE RECORDS SUMMARY | 2024-10-23 11:07 | XMS_ITS | Encounter Summary ---
Author Organization [employer] ([place], [place], [place], [place]) Address [address] [place] [address] Care Team Providers Care Stock Clerk Name Role Phone Unavailable Primary Care Provider Unavailabl e Encounter Details Date Type Department Care Team (Late st Contact Info) Description 02/05/2019 Transcribed Document [facility] [place] Family Medicine [facility] [place] [address] ProviderYusuf MD [facility] [place] [address] Social History Tobacco Use Types [...] - Historical ProviderMD - 02/05/2019 10:38 AM RADIO HOST Evaluation, Physical Therapy Entered On: 02/05/2019 14:38 [...] : 4/good Ankle Plantarflexion (0-45) : 4/good PATRICIO SAIMA, PT - 02/05/2019 14:32 EST Lower Extremity Comment : pt reporting Bilat weakness/instability during gait PATRICIO SAIMA, PT - 02/05/2019 14:32 EST Functional Mobility Mobility Grid Supine to Sit : Supervision/set-up Sit to Stand : Rehab Minimal assistance Stand to Sit : Rehab Minimal assistance Sit to Supine : Supervision/set-up PATRICIO SAIMA, PT - 02/05/2019 14:32 EST Sit to Stand Device : Belt, gait, Walker, front wheel Stand to Sit Device : Belt, gait, Walker, front wheel PATRICIO SAIMA, PT - 02/05/2019 14:32 EST Gait Training/Assessment, PT Gait Assistance Level : Assist, minimal Walking Distance : 80ft with RWx Karl for safety/stability Ambulatory Devices : Gait belt, Walker, front wheel PATRICIO SAIMA, PT - 02/05/2019 14:32 EST Cognition Assessment, PT Orientation : Oriented x 4 Attention Assessment : Present SAIMA CURRY, PT - 02/05/2019 14:32 EST Edu Topics Physical Therapy Education Grid Gait Training : Verbalizes understanding, Returns demonstration, Needs reinforcement Transfer Training : Verbalizes understanding, Returns demonstration, Needs reinforcement PATRICIO SAIMA, PT - 02/05/2019 14:32 EST Teaching/Learning Assessment Barriers To Learning : None evident SAIMA CURRY, PT - 02/05/2019 14:32 EST Indication Assesessment, PT Physical Therapy Indicated : Yes PT Problem List : Impaired, endurance tolerance, Impaired, gait, Impaired, strength, Impaired, transfers SAIMA CURRY, PT - 02/05/2019 14:32 EST Plan of Care, PT PT Tx Plan/Goals Established w Patient : Yes PT Frequency Rehab : Five days per week PT Duration Rehab : Fourteen days PT Treatments Planned : Gait training, Therapeutic exercises, Transfer training SAIMA CURRY, PT - 02/05/2019 14:32 EST Care Home Goals Mobility/Bed Mobility LTG PT Grid Goal [...] Pre-Intervention : 4 Location : Head SAIMA CURRY PT - 02/05/2019 14:32 EST Image 1 - Images currently included in the form version of this document have not been included in the text rendition version of the form. Anticipated Discharge Needs, OT/PT Anticipated Discharge to : Home, with family care, Outpatient rehabilitation Recommend Continued Therapy at Discharge : Yes SAIMA CURRY PT - 02/05/2019 14:[address] [facility] PT Charges PT Eval Moderate Complexity : 1 SAIMA CURRY PT - 02/05/2019 14:32 EST documented in this encounter Plan of Treatment Not on file documented as of this encounter Visit Diagnoses Not on filedocumented in this encounter
--- OUTSIDE RECORDS SUMMARY | 2024-10-23 11:07 | XMS_ITS | Encounter Summary ---
Author Organization [employer] ([place], [place], [place], [place]) Address [address] [place] [address] Care Team Providers Care Bottling Machine Operator Name Role Phone Unavailable Primary Care Provider Unavailabl e Encounter Details Date Type Department Care Team (Late st Contact Info) Description 02/10/2019 Transcribed Document [facility] Radiology [address] [place] [address] Anne Peters MD [address] [place] [address] [address] [place] [id number] Social History Tobacco Use Types Packs/Day Years [...] physician Dr. Johan Sue neurology [facility] Chief complaint bilateral upper and [...] At risk for sleep apnea / IMO [id number] / Confirmed, Active Problems (3) At risk for sleep apnea HLD (hyperlipidemia) HTN (hypertension) Objective VS/Measurements Vitals Signs (last 24 hrs) Last Charted Minimum Maximum Temp 98 (FEB 10 06:) 97.9 (FEB 09:59) 98.3 (FEB 09:03) Mon HR 95 (FEB 10:00) 70 (FEB 09:03) 95 (FEB 10:) Resp Rate 18 (FEB 10:00) 16 (FEB 09:03) 18 (FEB 09:59) SBP 112 (FEB 10:00) 112 (FEB 10:00) 125 (FEB 10:59) DBP 61 (FEB 10:00) 61 (FEB 10:00) 74 (FEB 09:59) MAP 75 (FEB 10 09:00) 75 (FEB 10 09:00) 87 (FEB 09:59) SpO2 L 93 (FEB 10:00) L 93 (FEB 09:) 94 (FEB 10:59) General: No acute distress. Eye: Normal conjunctiva. HENT: Normocephalic. Neck: Supple, No jugular venous distention. Respiratory: Lungs are clear to auscultation, Respirations are non-labored, Breath sounds are equal. Cardiovascular: Normal rate, Regular rhythm, No gallop, S1+ S2 No S3 or S4 [place].. Gastrointestinal: Soft, Non-tender, Non-distended, Normal bowel sounds. [...]
--- OUTSIDE RECORDS SUMMARY | 2024-10-23 11:07 | XMS_ITS | Encounter Summary ---
Author Organization [employer] ([place], [place], [place], [place]) Address [address] [place] [address] Care Team Providers Care Tax Accountant Name Role Phone Unavailable Primary Care Provider Unavailabl e Encounter Details Date Type Department Care Team (Late st Contact Info) Description 02/09/2019 Transcribed Document [facility] [place] [facility] [place] [address] ProviderYusuf MD [facility] [place] [address] Social History Tobacco Use Types [...] - Historical ProviderMD - 02/09/2019 5:00 AM NANOTECHNICIAN Chart Check - Review Order Profile Entered On: 02/09/2019 4:03 EST Performed On: 02/09/2019 5:00 EST by Lesly Colindres RN Chart Check All Active Orders Reviewed : Yes Lesly Colindres RN - 02/09/2019 4:03 EST documented in this encounter Plan of Treatment Not on file documented as of this encounter Visit Diagnoses Not on filedocumented in this encounter
--- OUTSIDE RECORDS SUMMARY | 2024-10-23 11:07 | XMS_ITS | Encounter Summary ---
Author Organization [employer] ([place], [place], [place], [place]) Address [address] [place] [address] Care Team Providers Care Online Health And Fitness Coach Name Role Phone Unavailable Primary Care Provider Unavailabl e Encounter Details Date Type Department Care Team (Late st Contact Info) Description 02/14/2019 Transcribed Document [facility] [place] Medicine [facility] [address] ProviderYusuf MD [facility] [place] [address] Social History Tobacco Use Types [...] - Historical ProviderMD - 02/14/2019 2:00 AM TENSION MACHINE OPERATOR Sales Planning Coordinator Details Entered On: 02/14/2019 6:40 EST Performed On: 02/14/2019 2:00 EST by JAYA [place] REGISITERED_ Order [...]
--- OUTSIDE RECORDS SUMMARY | 2024-10-23 11:07 | XMS_ITS | Encounter Summary ---
Author Organization [employer] ([place], [place], [place], [place]) Address [address] [place] [address] Care Team Providers Care Geospatial Analyst Name Role Phone Unavailable Primary Care Provider Unavailabl e Encounter Details Date Type Department Care Team (Late st Contact Info) Description 02/15/2019 Transcribed Document [facility] [place] [facility] [place] [address] ProviderYusuf MD [facility] [place] [address] Social History Tobacco Use Types [...] Cerner Conversion Note - Yusuf ProviderMD - 02/15/2019 10:58 AM REAL ESTATE PROFESSOR Patient Education Materials Follows: Transverse Myelitis Transverse [...] You may need to see a nervous data processing systems consultant (neurologist) to have tests, which may include: [...] Follow these instructions at home: ??? Take ymkz-sbo-ujvfges and prescription medicines only as told by [...] 02/25/2003 Document Revised: 11/07/2016 Document Reviewed: 08/13/2015 [employer] Interactive Patient Education ? 2019 [employer]. Neurology Spinal Cord Infarction A spinal cord [...] ? Manage bowel and bladder problems. ? [place] with mental health problems. ? Manage pain. [...] 02/25/2003 Document Revised: 11/02/2016 Document Reviewed: 05/21/2014 [employer] Interactive Patient Education ? 2019 [employer] Weakness Weakness is a lack of [...] sleep you need each night. ??? Take enuv-iwg-oikihpr and prescription medicines only as told by [...] about working with a physical therapist or athletic trainer to help you get stronger. ??? [...] 02/17/2009 Document Revised: 04/01/2016 Document Reviewed: 12/26/2015 [employer] Interactive Patient Education ? 2019 [employer]. Obstetrics and Gynecology Near-Syncope Near-syncope is when [...] This can help with dizziness. ??? Take ncrj-vux-idmyhar and prescription medicines only as told by [...] 11/19/2015 Elsevier Interactive Patient Education ? 2019 [employer] documented in this encounter Plan of Treatment Not on file documented as of this encounter Visit Diagnoses Not on filedocumented in this encounter
--- OUTSIDE RECORDS SUMMARY | 2024-10-23 11:07 | XMS_ITS | Encounter Summary ---
Author Organization [employer] ([place], [place], [place], [place]) Address [address] [place] [address] Care Team Providers Care Dude Wrangler Name Role Phone Unavailable Primary Care Provider Unavailabl e Encounter Details Date Type Department Care Team (Late st Contact Info) Description 02/05/2019 Transcribed Document [facility] [place] [facility] [place] [address] ProviderYusuf MD [facility] [place] [address] Social History Tobacco Use Types [...] - Historical ProviderMD - 02/05/2019 10:38 AM MEDICAL AFFAIRS SPECIALIST Evaluation, Occupational Therapy Entered On: 02/06/2019 15:17 [...] IVANIA BIRD OTR/Leeann 02/06/2019 15:12 EST Hand Catheter Finisher And Inspector Test : Bilateral vmware architect strength WFL IVANIA BIRD OTR/Leeann 02/06/2019 15:12 [...] activities IVANIA BIRD OTR/Leeann 02/06/2019 15:12 EST Intermediate Goals, OT Grooming LTG Grid Goal #1 Activity : Grooming Assist : Independent, modified Date to Meet : 02/20/2019 EST Goal Status : Initial goal Comment : Standing up at sink IVANIA BIRD OTR/Leeann 02/06/2019 15:12 EST Bathing LTG Grid Goal #1 Activity : Bathing Assist : Independent, modified Date to Meet : 02/20/2019 EST Goal Status : Initial goal IVANIA BIRD OTR/Leeann 02/06/2019 15:12 EST Dressing, Lower Body LTG Grid Goal #1 Activity : Dressing, Lower Body Assist : Independent, modified Date to Meet : 02/20/2019 EST Goal Status : Initial goal IVANIA BIRD OTR/Leeann 02/06/2019 15:12 EST Toileting LTG Grid Goal #1 Activity : Toileting Assist : Independent, modified Date to Meet : 02/20/2019 EST Goal Status : Initial goal IVANIA BIRD OTR/Leeann 02/06/2019 15:12 EST Toilet Transfer LTG Grid Goal #1 Activity : Toilet Transfer, Ambulatory Assist : Independent, modified Date to Meet : 02/20/2019 EST Goal Status : Initial goal IVANIA BIRD OTR/Leeann 02/06/2019 15:12 EST Treatment Note Subjective Comment [...] Treatment : see goals IVANIA BIRD OTR/Leeann 02/06/2019 15:12 EST Pain Assessment Pain Scaled Used : 0-10 Pain scale Pain Score Pre-Intervention : 0 IVANIA BIRD OTR/Leeann 02/06/2019 15:12 EST Image 1 - Images currently included in the form version of this document have not been included in the text rendition version of the form. Anticipated Discharge Needs, OT/PT Anticipated Discharge to : Home, with family care IVANIA BIRD OTR/Leeann 02/06/2019 15:[address] [facility] OT Charges OT Eval Moderate Complexity : 1 IVANIA BIRD, OTR/L - 02/06/2019 15:12 EST documented in this encounter Plan of Treatment Not on file documented as of this encounter Visit Diagnoses Not on filedocumented in this encounter
--- OUTSIDE RECORDS SUMMARY | 2024-10-23 11:07 | XMS_ITS | Clinical Summary ---
[facility] Address [address] [place] [address] Care Team Providers Care Animal Therapist Name Role Phone Jensen Santiago MD Primary Care Provider [phone] Allergies Active Allergy Reactions Criticality Noted Date Comments Lisinopril Hives Low 03/28/2019 Penicillins Rash Low 03/28/2019 Tramadol Rash Low 10/17/2019 Medications potassium chloride (K-DUR,KLOR-CON) 10 MEQ CR tablet Take 10 mEq by mouth Daily. 9 Active losartan (COZAAR) 25 MG tablet Take 1 tablet by mouth Daily. Active Biotin 57335 MCG tablet Take 1,000 mcg by mouth Daily. Active [place]-3 Fatty Acids (FISH OIL) 500 MG capsule capsule Take 500 mg by mouth Daily With Breakfast. Active Cholecalciferol (VITAMIN D3) 50 MCG (2000 UT) chewable tablet Chew 2 doses Daily. Active Loratadine 10 MG capsule Take 1 capsule by mouth Daily. Active Cranberry 500 MG chewable tablet Chew 1,000 mg Daily. Active coenzyme Q10 100 MG capsule Take 100 mg by mouth Daily. Active pregabalin (LYRICA) 75 MG capsuleIndication s:Dural arteriovenous fistula,Cervical myelopathy Take 1 capsule by mouth Every 12 (Twelve) Hours. 1 capsule 0 Active Additional Information Patient not taking.Reported on 06/02/2022 DULoxetine (CYMBALTA) 60 MG capsule Take 1 capsule by mouth Daily. Active hydroCHLOROthiazi de (HYDRODIURIL) 12.5 MG tablet Take 12.5 mg by mouth Daily. Active celecoxib (CeleBREX) 200 MG capsule Take 1 capsule by mouth Daily. 30 capsule 1 0 Active Additional Information Patient not taking.Reported on 06/02/2022 cholecalciferol (VITAMIN D3) 25 MCG (1000 UT) tablet Daily. Active darifenacin (ENABLEX) 15 MG 24 hr tablet 3 Active doxycycline (VIBRAMYCIN) 100 MG capsule Take 1 capsule by mouth every night at bedtime. 3 Active pregabalin (LYRICA) 150 MG capsule 3 Active triamcinolone (KENALOG) 0.1 % cream APPLY CREAM EXTERNALLY TO AFFECTED AREA TWICE DAILY 2 Active [place]-3 Fatty Acids (fish oil) 1000 MG capsule capsule Take 1 capsule by mouth Daily. 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 Not on file 01/2023 Does Anyone Keep You from Co ntacting Others or Doint Things Outside the Home? Not on file 12/29/2022 Physical Sign of Abuse Present Not on file 1 Housing Stability Answer Date Recorded Current Living Arrangements Not on file 12/19 Potentially Unsafe Housing Conditions Not on kiya e 12/29/2022 Family and Community Support Answer Marvin e Recorded Help with Day-to-Day Activities Not on file 12/29/2022 Lonely or Isolated Not on file 12/29/2022 Employment Answer Date Recorded Do you want help finding or keeping work or a peace b? Not on file 12/29/2022 Disabilities Answer Date Recorded Concentrating, Remembering, or Making Decisions Difficulty Not on file 12/29/2022 Doing Errands Independently Difficulty Not on fi le 12/29/2022 Education Answer Date Recorded Help with school or training? Not on file Preferred Language Not on file 12/29/2022 Comments No Sex and Gender Information Value Date Recorded Sex Assigned at Not on file Legal Sex Female 8:49 AM EST Gender Identity Not on file Sexual Orientation Not on file Last Filed Vital Signs Vital Sign Reading Time Taken Comments Blood Pressure 120/62 06/02/2022 12:46 PM EDT Pulse 100 06/02/2022 12:46 PM EDT Temperature 36.1 C (96.9 F) 06/02/2022 12:46 PM EDT Respiratory Rate 16 04/08/2019 1:00 PM EST Oxygen Saturation 98% 06/02/2022 12:46 PM EDT Inhaled Oxygen Concentration - - Weight 89.4 kg (197 lb 3.2 oz) 06/02/2022 12:46 PM EDT Height 165.1 cm (5' 5 ) 06/02/2022 12:46 PM EDT Body Mass Index 32.82 06/02/2022 12:46 PM EDT Plan of Treatment Health Maintenance Due Date Last Done Comments DXA SCAN 1945 ZOSTER VACCINE (1 of 2) 1997 ANNUAL WELLNESS VISIT 03/27/2019 HEPATITIS C SCREENING 03/27/2019 RSV Vaccine - Adults (1 - 1- dose 75+ series) 2022 COVID-19 Vaccine (8 - 2023-2 5 season) 2023 12/16/2021, 07/31/2021, 01/28/2021, Additional history exists INFLUENZA VACCINE 12/19/2024 01/29/2022, , 12/02/2020, Additional history exists TDAP/TD VACCINES (2 - Td or Tdap) 05/11/2028 019 Pneumococcal Vaccine 50+ Completed 06/29/2019, 04/22 Medical Devices Implanted Type Area Power Transformer Inspector Device Identifier Shelf Expiration Date Model / Serial / Lot Sys Liq Emb Juan 18 Evoh/6pct Vl1.5ml - [id number] Implanted:Qty: 1 on 04/06/2019 by Laurent Kelsey MD at [facility] Implant EV3 [place] [id number] / / Insurance MEDICARE A & B [facility] [facility] Advance Directives Documents on File Type Date Recorded Patient High Lead Yarder Expl anation LIVING WILL - SCAN 03/29/2019 6:57 AM * CPR (Attempt to Resuscitate) (Latest Code Status on File) Date Activated Date Inactivated Comments 04/08/2019 12:25 PM 04/08/2019 4:27 PM Question Answer Comments Code Status (Patient has no pulse and is not breathing): CPR (Attempt to Resuscitate) Medical Interventions (Patie nt has pulse or is breathing): Full Level Of Support Discussed With: Patient Healthcare Agents on File Name Relationship Healthcare Agent Relationshi p Communication Adam Scott Spouse Health Care Surrogate Care Teams Animal Therapist Relationship Specialty Start Date End Date Jensen Santiago MD [address] [place] [address] [place] [address] PCP - General Family Medicine 03/26/19
--- OUTSIDE RECORDS SUMMARY | 2024-10-23 11:07 | XMS_ITS | Encounter Summary ---
Author Organization [employer] ([place], [place], [place], [place]) Address [address] [place] [address] Care Team Providers Care Lighting Specialist Name Role Phone Unavailable Primary Care Provider Unavailabl e Encounter Details Date Type Department Care Team (Late st Contact Info) Description 02/05/2019 Transcribed Document [facility] Family Medicine [facility] [place] [address] ProviderYusuf MD [facility] [place] [address] Social History Tobacco Use Types [...] - Historical ProviderMD - 02/05/2019 10:39 AM BELT NOTCHER Consult Phone Call Documentation Entered On: 02/05/2019 17:41 EST Performed On: 02/05/2019 10:39 EST by SAVANNA VARGAS RN Phone Call for Consults Consult Reason : dr weiss here to see pt SAVANNA VARGAS RN - 02/05/2019 17:41 EST Electronically signed by Lillian [facility] Conversion Driver Trainer Cerner at 07/07/2022 9:56 PM CDT documented in this encounter Plan of Treatment Not on file documented as of this encounter Visit Diagnoses Not on filedocumented in this encounter
--- OUTSIDE RECORDS SUMMARY | 2024-10-23 11:07 | XMS_ITS | Encounter Summary ---
Author Organization [employer] ([place], [place], [place], [place]) Address [address] [place] [address] Care Team Providers Care Marine Engine Machinist Apprentice Name Role Phone Unavailable Primary Care Provider Unavailabl e Encounter Details Date Type Department Care Team (Late st Contact Info) Description 02/09/2019 Transcribed Document [facility] Radiology [address] [place] [address] Anne Peters MD [address] [place] [address] [address] [place] [id number] Social History Tobacco Use Types Packs/Day Years [...] discharge Referring physician Dr. Johan Sue neurology [facility] Chief complaint bilateral upper and lower extremity [...] Medical At risk for sleep apnea / O [id number] / Confirmed, Active Problems (3) At risk [...] gallop, S1+ S2 No S3 or S4 Nicholas.. Gastrointestinal: Soft, Non-tender, Non-distended, Normal bowel sounds. [...]
--- OUTSIDE RECORDS SUMMARY | 2024-10-23 11:07 | XMS_ITS | Encounter Summary ---
Author Organization [facility] ([place], [place], [place], [place]) Address [address] [place] [address] Care Team Providers Care Dictaphone Typist Name Role Phone Unavailable Primary Care Provider Unavailabl e Encounter Details Date Type Department Care Team (Late st Contact Info) Description 02/14/2019 Transcribed Document [facility] Family Medicine [address] [place] [address] ProviderYusuf MD [facility] [place] [address] Social History Tobacco Use Types [...] - Historical ProviderMD - 02/14/2019 5:00 AM PSYCH COORDINATOR Chart Check - Review Order Profile Entered On: 02/14/2019 6:41 EST Performed On: 02/14/2019 5:00 EST by JAYA WASHINGTON REGISITERED_ Chart Check Powerplans Initiated/Discontinued as Appropriate : Yes All Active Orders Reviewed : Yes JAYA WASHINGTON REGISITERED_ - 02/14/2019 6:41 EST documented in this encounter Plan of Treatment Not on file documented as of this encounter Visit Diagnoses Not on filedocumented in this encounter
--- OUTSIDE RECORDS SUMMARY | 2024-10-23 11:07 | XMS_ITS | Patient Health Record ---
Author Organization [facility] Address [address] [place] [id number] Care Team Providers Care Director Of Recruitment Name Role Phone Jensen Santiago Primary Care Provider Maryanne Malik [phone] Allergies Allergen (clinical drug ingredient) Drug/Non Drug Allergy documented on EMR Reaction Allergy Type Onset Date Status lisinopril Lisinopril hives Drug Allergy Activ e Penicillin rash Drug Allergy Active Results Component Value Reference Range Notes Mammogram Reviewed date:09/19/2024 01:22:46 PM Interpretation:Negative Performing Lab: Notes/Report: Negative result negative TEN-UTI panel Reviewed date:01/11/2024 02:47:23 PM Interpretation:Abnormal Performing Lab: Notes/Report: Abnormal TEN-UTI panel Reviewed date:10/19/2024 08:23:33 AM Interpretation:Klebsiella pneumoniae Performing Lab: Notes/Report: Klebsiella pneumoniae Urinalysis - Inhouse Reviewed date:10/18/2024 08:08:18 AM Interpretation: Performing Lab: Notes/Report: Color/Clarity light yellow/cloudy Leuk 2+ Nitrite neg Urobili 3.2 Protein neg pH 6.0 Blood 1+ Sp. Gr. 1.010 Ketone neg Bili neg Gluc neg TEN-UTI panel Reviewed date:07/13/2024 04:21:06 PM Interpretation:E. [...] Notes/Report: Klebsiella pneumoniae Urinalysis - Inhouse Reviewed date:05/29/2024 09:16:02 AM Interpretation: Performing Lab: Notes/Report: Color/Clarity yellow/cloudy Leuk 3+ Nitrite Neg Urobili 3.2 Protein Trace pH 5.5 Blood 1+ Sp. Gr. 1.015 Ketone Neg Bili Neg Gluc Neg Urinalysis - Inhouse Reviewed date:03/10/2024 11:06:10 AM Interpretation: Performing Lab: Notes/Report: Color/Clarity orange Leuk 3+ Nitrite pos Urobili 16 Protein 2+ pH 5.0 Blood trace-intact Sp. Gr. 1.020 Ketone trace Bili neg Gluc trace P-Culture, Urine Reviewed date:03/13/2024 10:55:09 AM Interpretation:Klebsiella pneumoniae Performing Lab: Notes/Report: Test performed by [facility], [address] , [address], [place] [address] Danilo Duran MD, Bight Maker CLIA: [id number] Specimen Source Urine - Void Culture, Urine See Below See Microbiol ogy Report Klebsiella pneumoniae ESBL 50,000-100,000 CFU/ml Klebsiella pneumoniae ESBL This isolate is a confirmed ESBL (Extended Spectrum Beta-Lactamase) television producer and should be considered clinically resistant to [...] Lab: Notes/Report: Abnormal Urinalysis - Inhouse Reviewed date:05/18/2024 11:19:11 AM Interpretation: Performing Lab: Notes/Report: Color/Clarity yellow/clear Leuk Trace Nitrite Neg Urobili 3.2 Protein Neg pH 6.0 Blood Neg Sp. Gr. 1.015 Ketone Neg Bili Neg Gluc Neg TEN-UTI panel Reviewed date:05/21/2024 02:41:27 PM Interpretation:Negative Performing Lab: Notes/Report: Negative Urinalysis - Inhouse Reviewed date:06/12/2024 02:41:39 PM Interpretation: Performing Lab: Notes/Report: Color/Clarity yellow/cloudy Leuk 2+ Nitrite neg Urobili 3.2 Protein 1+ pH 5.5 Blood trace Sp. Gr. 1.015 Ketone neg Bili neg Gluc neg P-Culture, Urine Reviewed date:06/15/2024 01:26:54 PM Interpretation: Performing Lab: Notes/Report: Test performed by [facility], [facility] [address] [place] [address] , [address], [place] [address] Danilo Duran MD, Bight Maker CLIA: [id number] Specimen Source Urine - Void Culture, Urine See Below See Microbiol ogy Report Klebsiella pneumoniae ESBL 50,000-100,000 CFU/ml Klebsiella pneumoniae ESBL This isolate is a confirmed ESBL (Extended Spectrum Beta-Lactamase) television producer and should be considered clinically resistant to [...] S=SUSCEPTIBLE I=INTERMEDIATE R=RESISTANT Urinalysis - Inhouse Reviewed date:08/24/2024 05:00:18 PM Interpretation: Performing Lab: Notes/Report: Color/Clarity yellow Leuk 1+ Nitrite pos Urobili 3.2 Protein trace pH 5.5 Blood 3+ Sp. Gr. 1.015 Ketone neg Bili neg Gluc neg P-Culture, Urine Reviewed date:08/28/2024 09:10:04 AM Interpretation:E. Coli Performing Lab: Notes/Report: Test performed by [facility], [address] , [facility], [place] [address] Danilo Duran MD, Bight Maker CLIA: [id number] Specimen Source Urine - Void Culture, Urine See Below See Microbiol ogy Report Escherichia coli ESBL 50,000-100,000 CFU /ml Escherichia coli ESBL This isolate is a confirmed ESBL (Extended Spectrum Beta-Lactamase) television producer and should be considered clinically resistant to [...] S Trimeth/Sulfa S ___ S=SUSCEPTIBLE I=INTERMEDIATE R=RESISTANT Urinalysis - Inhouse Reviewed date:01/02/2024 04:09:19 PM Interpretation: Performing Lab: Notes/Report: Color/Clarity yellow/clear Leuk trace Nitrite neg Urobili 3.2 Protein neg pH 6.0 Blood neg Sp. Gr. 1.010 Ketone neg Bili neg Gluc neg TEN-UTI panel Reviewed date:2024 11:51:57 AM Interpretation:Rejected. See 01/09/24 Order Performing Lab: Notes/Report: Rejected. See 01/09/24 Order Urinalysis - Inhouse Reviewed date:03/23/2024 03:23:26 PM Interpretation: Performing Lab: Notes/Report: Color/Clarity yellow/clear Leuk Neg Nitrite Neg Urobili 3.2 Protein Neg pH 5.5 Blood Neg Sp. Gr. 1.015 Ketone Neg Bili Neg Gluc Neg Urinalysis - Inhouse Reviewed date:07/17/2024 08:11:10 AM Interpretation: Performing Lab: Notes/Report: Color/Clarity yellow/cloudy Leuk 2+ Nitrite Pos Urobili 3.2 Protein 3+ pH 6.0 Blood 2+ Sp. Gr. 1.020 Ketone Trace Bili Neg Gluc Neg Urinalysis - Inhouse Reviewed date:12/09/2023 10:22:34 AM Interpretation: Performing Lab: Notes/Report: Color/Clarity yellow/cloudy Leuk 1+ Nitrite neg Urobili 3.2 Protein neg pH 5.5 Blood neg Sp. Gr. 1.015 Ketone neg Bili neg Gluc neg CBC Fingerstick (in house) Reviewed date:12/09/2023 10:22:42 [...] AM Interpretation: Performing Lab: Notes/Report: Result: Neg Reason For Referral Diagnosis 1 Neurogenic bladder ( N31.9) Referral Organization [facility] Referring Provider First Name Jensen Referring Provider Last Name Pamela Referring Provider Speciality Family Pra ctice Referred Provider Adam Kingston Referred Provider Specialty Urology General Notes Ninfa Correa 05/18/19 11:15:42 AM > faxed referral to 's office Referral Priority Routine Reason [facility] Diagnosis 1 Chronic UTI (N39.0) Diagnosis 2 Urinary retention (R 33.9) Diagnosis 3 Urinary incontinence in female (R32) Diagnosis 4 Bladder spasms (N32. 89) Referral Organization [facility] Referring Provider First Name Jensen Referring Provider Last Name Pamela Referring Provider [facility] ctice Referred Provider Specialty Urology General Notes Ninfa Correa 2024 10:53:56 AM > faxed referral to [facility] Referral Priority Routine Diagnosis 1 Urinary retention (R 33.9) Diagnosis 2 Chronic UTI (N39.0) Diagnosis 3 Other urinary incont inence (N39.498) Diagnosis 4 Neurogenic bladder ( N31.9) Referral Organization [facility] Referring Provider First Name Jensen Referring Provider Last Name Pamela Referring Provider [facility] ctice Referred Provider Fifi [place] General Notes Ninfa Correa 2024 08:45:29 AM > faxed referral to [facility] Urogynecology Referral Priority Routine Medications Medication SIG (Take, Route, Frequency, Duration) Notes Start Date End Date Status Claritin 10 MG 1 tab(s) orally once a day Active Fish Oil 100MG Activ e Vitamin D3 25 MCG (1000 UT) 1 cap(s) ora lly once a day; Duration: 30 day(s) Active Eliquis 5 MG 1 tablets Orally twi ce a day; Duration: 30 days Active predniSONE 5 MG 1 tablet Orally Once a day; Duration: 30 day(s) Active Losartan Potassium 25 MG Take 1 tablet b y mouth once daily; Duration: 90 Active Methotrexate Sodium 2.5 MG as directed Orally Active Pregabalin 150 MG 1 cap(s) orally 2 ti mes a day; Duration: 90 days 09/03/2024 Active Folic Acid 1 MG 1 tablet Orally Once a day; Duration: 30 day(s) Active Hyoscyamine Sulfate 0.125 MG 1 tablet as needed Orally every 4 hrs 07/18/2024 Active Pantoprazole Sodium 40 MG 1 tablet 1/2 t o 1 hour before morning meal Orally Once a day; Duration: 30 day(s) 07/10/2024 Active Mycophenolate Mofetil 250 MG 1 capsule O rally Twice a day; Duration: 30 day(s) Active Methenamine Hippurate 1 GM 1 tablet Oral ly once daily Active DULoxetine HCl 60 MG Take 1 capsule by m outh once daily; Duration: 90 Active Immunizations Vaccine Route Administration Date [...] 05/11/2018 Administered xFlu shot- 6months-36 months of lgf-WXTI-TJJV-trivalent Unknown 02/08/2016 Administered xFluzone (6mos and older)-trivalent IM Intramuscular 02/05/2013 Administered xFluzone High Dose-private (65yr&older) IM Intramuscular 02/20/2014 Administered Problems Problem Type SNOMED Code ICD Code Onset Dates Problem Status W/U Status Risk Notes Problem Vitamin D deficiency (26543352) Vitamin D deficiency (E55.9) Active confirmed Problem Essential hypertension (56605076) Essential hypertension (I10) Active confirmed Problem Anxiety (11356075) Anxiety (F41.9) Active confi rmed Problem Urinary retention (012427184) Urinary retention (R33.9) Active confirmed Problem Osteopenia (358115307) Osteopenia (M85.80) Active confirmed Problem Neurogenic bladder (479371015) Neurogenic bladder (N31.9) Active confirmed Problem Overactive urinary bladder (disorder) (410206897) OAB (overactive bladder) (N32.81) Active confirmed Problem Mixed hyperlipidemia (740726393) Mixed hyperlipidemia (E78.2) Active confirmed Problem Urge incontinence of urine (33320824) Urge incontinence (N39.41) Active confirmed Problem Incontinence of feces (87132481) Full incontinence of feces (R15.9) Active confirmed Problem History of polyp of colon (situation) (257650137) Hx of colonic polyps (Z86.010) Active confirmed Problem Neuropathy (312450998) Neuropathy (G62.9) Active confirmed Problem Ataxia (89350308) Ataxia (R27.0) Active confirm ed Problem Claudication (84697189) Claudication (I73.9) Active confirmed Problem Urinary tract infectious disease (95546150) Chronic UTI (N39.0) Active confirmed Problem Body mass index 30.00 to 34.99 (447119282686755) BMI 31.0-31.9,adult (Z68.31) Active confirmed Problem Body mass index 30.00 to 34.99 (011938293864136) BMI 34.0-34.9,adult (Z68.34) Active confirmed Problem Spasm of bladder (852578950) Bladder spasms (N32.89) Active confirmed Problem Urge incontinence of urine (39275324) Urge incontinence of urine (N39.41) Active confirmed Problem Raynaud's disease (280673331) Raynaud's disease without gangrene (I73.00) Active confirmed Problem Obesity (331548539) Non morbid obesity (E66.9) Active confirmed Problem Arthritis of left knee (0684888919345220) Arthritis of left knee (M17.12) Active confirmed Problem Urinary incontinence (811956231) Other urinary incontinence (N39.498) Active confirmed Problem Seasonal allergic rhinitis (182449429) Seasonal allergic rhinitis, unspecified trigger (J30.2) Active confirmed Problem Cervical myelopathy (993356912) Cervical myelopathy (G95.9) Active confirmed Problem 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 Problem 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 Problem Gastroesophageal reflux disease (380393998) Gastroesophageal reflux disease, unspecified whether esophagitis present (K21.9) Active confirmed Problem Chronic kidney disease stage 3 (disorder) (149627302) Stage 3 chronic kidney disease, unspecified whether stage 3a or 3b CKD (N18.30) Active confirmed Problem Urinary incontinence (704324882) Urinary incontinence in female (R32) Active confirmed Vital Signs Heart Rate 88 /min 10/17/2024 Blood pressure diastolic 76 mm Hg 10/17/2024 Height 65 in 10/17/2024 Blood pressure systolic 122 mm Hg 10/17/2024 Weight 207.8 lbs 10/17/2024 BMI 34.58 kg/m2 10/17/2024 Encounters Encounter Location Date Provider Diagnosis [facility] [address] [facility] [address] [place], [place] [id number] 12/08/2023 Jensen [place] Acute cough R05.1 ; Urinary tract infection without hematuria, site unspecified N39.0 ; Heartburn R12 ; Colon cancer screening Z12.11 and Hx of colonic polyps Z86.010 [facility] [address] [facility] [address] [place] [id number] 01/02/2024 Jensen [place] Pyuria R82.81 and Frequency of urination R35.0 [facility] [address] [facility] [address] [place] [id number] 2024 Jensen [place] [facility] [address] [facility] [address] [place] [id number] 03/10/2024 Jensen [place] Urinary tract infect ion without hematuria, site unspecified N39.0 [facility] [address] [facility] [address] [place] [id number] 03/16/2024 Jensen [place] Acute UTI N39.0 and Exposure to the flu Z20.828 [facility] [address] [facility] [address] [place] [id number] 03/23/2024 Jensen [place] Recurrent UTI N39.0 and Urge incontinence N39.41 [facility] [address] [facility] [address] [place], [place] [id number] 05/18/2024 Jensen [place] Urinary tract infect ion, site not specified N39.0 ; Unspecified Escherichia coli [E. coli] as the cause of diseases classified elsewhere B96.20 ; Neurogenic bladder N31.9 and Acute deep vein thrombosis (DVT) of left peroneal vein I82.452 [facility] [address] [facility] [address] [place] [id number] 05/28/2024 Jensen [place] Chronic UTI N39.0 an d Open wound of right lower extremity, initial encounter S81.801A [facility] [address] [place] [id number] 06/11/2024 Maryanne Malik UTI (lower urinary t ract infection) N39.0 [facility] [address] [facility] [address] [place] [id number] 06/15/2024 Jensen [place] Cystitis, unspecifie d without hematuria N30.90 and Klebsiella pneumoniae [K. pneumoniae] as the cause of diseases classified elsewhere B96.1 [facility] [address] [facility] [address] [place] [id number] 07/10/2024 Jensen [place] Acute cystitis witho ut hematuria N30.00 ; Gastroesophageal reflux disease, unspecified whether esophagitis present K21.9 and BMI 34.0-34.9,adult Z68.34 [facility] [address] [place], [place] [id number] 07/16/2024 Jensen [place] Chronic UTI N39.0 [facility] [address] [facility] [address] [place] [id number] 07/18/2024 Jensen [place] Chronic UTI N39.0 ; Urinary retention R33.9 ; Urinary incontinence in female R32 ; Bladder spasms N32.89 ; Dermatopolymyositis M33.90 and BMI 34.0-34.9,adult Z68.34 [facility] [address] [facility] [address] [place] [id number] 08/24/2024 Jensen [place] Pelvic pain R10.2 ; Chronic UTI N39.0 and Cook catheter in place Z92.89 [facility] [address] [facility] [address] [place] [id number] 10/17/2024 Jensen [place] Chronic UTI N39.0 ; Pain in left knee M25.562 and Non morbid obesity E66.9 [facility] [address] [facility] [address] [place] [id number] 10/19/2024 Jensen [place] [facility] [address] [place] [id number] 10/23/2024 Jensen [place] [facility] [address] [place] [id number] 01/11/2024 Jensen [place] [facility] [address] [place] [id number] 01/18/2024 Jensen [place] [facility] [address] [place] [id number] 02/24/2024 Jensen [place] Neuropathy G62.9 [facility] [address] [place] [id number] 03/13/2024 Jensen [place] [facility] [address] [place] [id number] 03/19/2024 Jensen [place] [facility] [address] [place] [id number] 06/11/2024 Jensen [place] [facility] [address] [place] [id number] 07/16/2024 Jensen [place] [facility] [address] [place] [id number] 07/23/2024 Jensen [place] [facility] [address] [place] [id number] 08/28/2024 Jensen [place] Chronic UTI N39.0 [facility] [address] [place] [id number] 09/03/2024 Jensen [place] Neuropathy G62.9 [facility] [address] [place] [id number] 09/03/2024 Jensen [place] Screening for breast cancer Z12.39 and Screening for osteoporosis Z13.820 [facility] [address] [place] [id number] 09/07/2024 Jensen [place] Urinary retention R3 3.9 ; Other urinary incontinence N39.498 and Chronic UTI N39.0 Assessments Encounter Date Diagnosis (ICD Code) Assessment Notes Treatment Notes Treatment Clinical Notes Section Notes 12/08/2023 Urinary tract infection without hematuria, site unspecified (ICD-10 - N39.0) 05/18/2024 Urinary tract infection, site not specified (ICD-10 - N39.0) 05/18/2024 Unspecified Escherichia coli [E. coli] as the cause of diseases classified elsewhere (ICD-10 - B96.20) 12/08/2023 Acute cough (ICD-10 - R05.1) 01/02/2024 Frequency of urinati on (ICD-10 - R35.0) 01/02/2024 Pyuria (ICD-10 - R82.81) 02/24/2024 Neuropathy (ICD-10 - G62.9) 03/16/2024 Acute UTI (ICD-10 - N39.0) Culture shows multi drug resistant bacterial UTI, will treat with Invanz 03/16/2024 Exposure to the flu (ICD-10 - Z20.828) 03/23/2024 Recurrent UTI (ICD-1 0 - N39.0) Resolved 03/23/2024 Urge incontinence (ICD-10 - N39.41) 05/28/2024 Chronic UTI (ICD-10 - N39.0) 05/28/2024 [...] K21.9) 07/16/2024 Chronic UTI (ICD-10 - N39.0) 08/24/2024 Chronic UTI (ICD-10 - N39.0) Patient to follow up with [facility] urology next week 08/24/2024 Pelvic pain (ICD-10 - R10.2) 08/28/2024 Chronic UTI (ICD-10 - N39.0) 09/03/2024 Neuropathy (ICD-10 - G62.9) 09/03/2024 Screening for breast cancer (ICD-10 - Z12.39) 10/17/2024 Pain in left knee (ICD-10 - M25.562) 10/17/2024 Chronic UTI (ICD-10 - N39.0) 09/07/2024 Other urinary incontinence (ICD-10 - N39.498) 07/18/2024 Urinary retention (ICD-10 - R33.9) 07/18/2024 Chronic UTI (ICD-10 - N39.0) 09/07/2024 Urinary retention (ICD-10 - R33.9) 03/10/2024 Urinary tract infection without hematuria, site unspecified (ICD-10 - N39.0) 07/18/2024 Urinary incontinence in female (ICD-10 - R32) 09/07/2024 Chronic UTI (ICD-10 - N39.0) 12/08/2023 Heartburn (ICD-10 - R12) 10/17/2024 Non morbid obesity (ICD-10 - E66.9) Discussed starting Wegovy 09/03/2024 Screening for osteoporosis (ICD-10 - Z13.820) 08/24/[address] (ICD-10 - Z92.89) Cook catheter removed in office today. Patient had immediate pain relief. She will use catheters she has at home for intermittent bladder drainage 07/10/2024 BMI 34.0-34.9,adult (ICD-10 - Z68.34) 05/18/2024 Neurogenic bladder (ICD-10 - N31.9) 05/18/2024 Acute deep vein thrombosis (DVT) of left peroneal vein (ICD-10 - I82.452) 12/08/2023 Colon cancer screeni ng (ICD-10 - Z12.11) 07/18/2024 Bladder spasms (ICD- 10 - N32.89) 07/18/2024 Dermatopolymyositis (ICD-10 - M33.90) 12/08/2023 Hx of colonic polyps (ICD-10 - Z86.010) 07/18/2024 BMI 34.0-34.9,adult (ICD-10 - Z68.34) Plan Of Treatment Pending Test Test Name Order Date X ray : Knee, left 10/17/2024 Bone density 09/03/2024 colonoscopy 12/08/2023 H-CBC 05/18/2024 H-BMP 05/18/2024 Next Appt Details Provider Name:Jensen Cazares ry, 10/23/2024 10:56:00 AM, [address], [place], [id number], Insurance Providers Payer Name Payer Address Payer Phone Subscriber Number Group Number Insured Name Patient Relationship to Insured Coverage Start Date Coverage End Date MEDICARE PART B [address] [address] [place] [phone] [id number] Kelli Scott Self - patient is the insured [employer] [address] [address] [place] [id number] Kelli Scott Self - patient is the [...] Chronic cystitis neuropathy, s/p Neurology evaluation 202 Colon polyps Dermatomyositis, Dx: 2022 DVT, left leg May 2024 Surgical History Surgery Date(Month/Year) Bladder Tuck 2009 Bladder Tuck 04/2012 Left Knee 12/08/18 Hospitalization History Reason Date(Month/Year) [facility] - Rehab - Cervical myelopa thy 02/15-02/24/2009 [facility] - 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
--- OUTSIDE RECORDS SUMMARY | 2024-10-23 11:08 | XMS_ITS | Encounter Summary ---
Author Organization [employer] ([place], [place], [place], [place]) Address [address] [place] [address] Care Team Providers Care Electrical Engineering Technologist Name Role Phone Unavailable Primary Care Provider Unavailabl e Encounter Details Date Type Department Care Team (Late st Contact Info) Description 02/15/2019 Transcribed Document [facility] Family Medicine [facility] [place] [address] ProviderYusuf MD [facility] [place] [address] Social History Tobacco Use Types [...] - Historical ProviderMD - 02/15/2019 10:46 AM RECEIVING DOCK CHECKER Nursing Discharge Summary Entered On: 02/15/2019 10:47 [...] Explanation Teaching Evaluation : Verbalizes understanding Giselle Stanley RN - 02/15/2019 10:46 EST Electronically signed by Lillian [facility] Conversion Basket Mender Cerner at 07/07/2022 9:49 PM CDT documented in this encounter Plan of Treatment Not on file documented as of this encounter Visit Diagnoses Not on filedocumented in this encounter
--- OUTSIDE RECORDS SUMMARY | 2024-10-23 11:08 | XMS_ITS | Encounter Summary ---
Author Organization [employer] ([place], [place], [place], [place]) Address [address] [place] [address] Care Team Providers Care Foster Winder Name Role Phone Unavailable Primary Care Provider Unavailabl e Encounter Details Date Type Department Care Team (Late st Contact Info) Description 02/15/2019 Transcribed Document [facility] [place] [address] [place] [address] ProviderYusuf MD [facility] [address] Social History Tobacco Use Types [...] - Historical ProviderMD - 02/15/2019 2:00 AM DRUMS TEACHER Telecommunications Project Manager Details Entered On: 02/15/2019 6:48 EST Performed [...] Esther Cheek RN - 02/15/2019 6:47 EST Electronically signed by Onel Snyder Conversion Housing Management Representative Cerner at 07/07/2022 9:57 PM CDT documented in this encounter Plan of Treatment Not on file documented as of this encounter Visit Diagnoses Not on filedocumented in this encounter
--- OUTSIDE RECORDS SUMMARY | 2024-10-23 11:08 | XMS_ITS | Encounter Summary ---
Author Organization [employer] ([place], [place], [place], [place]) Address [address] [place] [address] Care Team Providers Care Warehouse Clerk Name Role Phone Unavailable Primary Care Provider Unavailabl e Encounter Details Date Type Department Care Team (Late st Contact Info) Description 02/06/2019 Transcribed Document [facility] [place] [facility] [place] [address] ProviderYusuf [place] [address] Social History Tobacco Use Types [...] - Historical ProviderMD - 02/06/2019 3:39 PM CLIENT ADVOCATE Patient: FRANKY SCOTT Age: 74 Years Sex: [...] Meningitis/Encephalitis Panel Myelin Basic Protein, Sendout Pathology Non-Small Craft Operator Request RPR Rapid Plasma Reagin Sequential Compression [...] Tab, Oral, Daily Electronically signed by Lillian, [facility] Conversion Dental Assisting Instructor Cerner at 07/07/2022 9:59 PM CDT documented in this encounter Plan of Treatment Not on file documented as of this encounter Visit Diagnoses Not on filedocumented in this encounter
--- OUTSIDE RECORDS SUMMARY | 2024-10-23 11:08 | XMS_ITS | Encounter Summary ---
Author Organization [employer] ([place], [place], [place], [place]) Address [address] [place] [address] Care Team Providers Care Wardrobe Mistress Name Role Phone Unavailable Primary Care Provider Unavailabl e Encounter Details Date Type Department Care Team (Late st Contact Info) Description 02/06/2019 Transcribed Document [facility] [place] Family Medicine [facility] [place] [address] ProviderYusuf MD [facility] [place] [address] Social History Tobacco Use Types [...] - Historical ProviderMD - 02/06/2019 2:40 PM MASKING MACHINE FEEDER Patient: FRANKY SCOTT Age: 74 years Sex: Female : 1945 Associated Diagnoses: None Author: ANGELA MCKEON PA-C Status post fluoroscopic guided lumbar puncture. Access was obtained to the thecal sac at the L3-4 vertebral level. 13 mls of clear CSF were removed. Opening pressure = 8. documented in this encounter Plan of Treatment Not on file documented as of this encounter Visit Diagnoses Not on filedocumented in this encounter
--- OUTSIDE RECORDS SUMMARY | 2024-10-23 11:08 | XMS_ITS | Encounter Summary ---
Author Organization [employer] ([place], [place], [place], [place]) Address [address] [place] [address] Care Team Providers Care Plastic Cnc Machine Operator Name Role Phone Unavailable Primary Care Provider Unavailabl e Encounter Details Date Type Department Care Team (Late st Contact Info) Description 02/06/2019 Transcribed Document [facility] Radiology [address] [place] [address] Anne Peters MD [address] [place] [address] [address] [id number] Social History Tobacco Use Types Packs/Day Years [...] physician Dr. Johan Sue neurology [facility] Chief complaint bilateral upper and [...] At risk for sleep apnea / IMO [id number] / Confirmed, Active Problems (3) At risk [...] gallop, S1+ S2 No S3 or S4 [place].. Gastrointestinal: Soft, Non-tender, Non-distended, Normal bowel sounds. [...] (FEB 05) HB 12.6 (FEB 06) 12.8 (NOV ) HCT 39.0 (FEB 06) 38.8 (NOV ) Plt 192 (FEB 06) 222 (NOV ) Na 139 (NOV ) 140 (NOV 18) K 3.7 (NOV ) 3.6 (NOV 18) Cl 108 (NOV ) 108 (NOV 18) CO2 29 (NOV ) 28 (NOV 18) BUN 18 (FEB 06) H 24 (NOV ) Cr 0.90 (FEB 06) 1.00 (NOV 18) Glu R 88 (NOV ) 97 (NOV 18) Ca 9.1 (FEB 06) 9.1 (NOV ) PT 11.0 (FEB 06) INR 1.0 (FEB 06) PTT 25.9 (FEB 06) AST 14 (NOV ) ALT 26 (NOV ) ALK P 73 (NOV ) T Bili 0.3 (FEB 05) PTN 7.7 (FEB 05) ALB 3.8 (FEB 05) Radiology Results (Last 48 hours) [id number] -- 02/05/2019 10:21 MRI Spine Cervical WO [...] cord from the cervicomedullary junction to the C4-O5lqaad. There is mild enhancement of the cord. [...] broad-based posterior disc bulging at C4-C5. At C6-C9voflx is a central to left paracentral disc [...]
--- OUTSIDE RECORDS SUMMARY | 2024-10-23 11:08 | XMS_ITS | Clinical Summary ---
Author Organization [employer] ([place], [place], [place], [place]) Address [address] [place] [address] Care Team Providers Care Customs Compliance Analyst Name Role Phone Unavailable Primary Care [...]
--- OUTSIDE RECORDS SUMMARY | 2024-10-23 11:08 | XMS_ITS | Encounter Summary ---
Author Organization [employer] ([place], [place], [place], [place]) Address [address] [place] [address] Care Team Providers Care Commissioned Sales Associate Name Role Phone Unavailable Primary Care Provider Unavailabl e Encounter Details Date Type Department Care Team (Late st Contact Info) Description 02/05/2019 Transcribed Document [facility] [place] [facility] [address] ProviderYusuf MD [facility] [place] [address] Social History Tobacco Use Types [...] Conversion Note - Yusuf ProviderMD - 02/05/2019 10:39 AM MANAGER SCHEDULING Swallow Evaluation Entered On: 02/05/2019 12:20 EST Performed On: 02/05/2019 12:16 EST by KENNA KIM ANIMAL CARE SPECIALIST General Information Visit Type, ANIMAL CARE SPECIALIST : Initial evaluation KENNA KIM SLP - 02/05/2019 12:16 EST Patient Orders : Consult to Speech Language Pathology for Swallow Eval -111 Start: 02/05/19 10:39:00 EST, Routine, For Swallow Eval and Treat - BASHIR RAYMOND MD-INT Admission Date : Admission Date/Time: 02/05/19 10:21:00 KENNA KIM, ASHER - 02/05/2019 12:21 EST Medical Chart Reviewed, ANIMAL CARE SPECIALIST : Yes KENNA KIM SLP - 02/05/2019 12:16 EST Personal Devices : Personal Devices Glasses Assistive Devices : Assistive Devices No Devices Recorded Active Diagnoses : 02/05/2019 12:00 Disease of spinal cord, unspecified KENNA KIM SLP - 02/05/2019 12:21 EST Therapy Diagnosis, ANIMAL CARE SPECIALIST : normal oropharyngeal skills Previous Swallow Precautions : no previous ST in EMR Diet/Intake Prior to Current Admission : reg/thin Diet/Intake During Current Admission : reg/thin Intubation Comment, ANIMAL CARE SPECIALIST : n/a KENNA KIM SLP - 02/05/2019 [...] 12:16 EST General Status Patient Received Status, ANIMAL CARE SPECIALIST : Long sitting in bed Patient Left Status, ANIMAL CARE SPECIALIST : Long sitting in bed KENNA KIM [...] Oral Mechanism for Daily Living : Intact ANIMAL CARE SPECIALIST Cough : Strong Facial Appearance: : Symmetrical [...] these records, Dr. Brunson sent her to [facility]. ST is asked to see for dysphagia. [...] - 02/05/2019 12:21 EST Therapy Indication Assessment ANIMAL CARE SPECIALIST Indicated : No ANIMAL CARE SPECIALIST Not Indicated : At prior level of function KENNA KIM SLP - 02/05/2019 12:21 EST Education Barriers To Learning : None evident Individuals Taught : Patient, Spouse KENNA KIM SLP - 02/05/2019 12:21 EST ANIMAL CARE SPECIALIST Education Assessment Grid 1 Aspiration : Verbalizes understanding Diet Recommendation : Verbalizes understanding KENNA KIM SLP - 02/05/2019 12:21 EST Gay ANIMAL CARE SPECIALIST Charges Evaluation Swallowing Function : 1 KENNA KIM, ANIMAL CARE SPECIALIST - 02/05/2019 12:21 EST Anticipated Discharge Needs, ANIMAL CARE SPECIALIST Anticipated Discharge to : Home, independently, Home, with home health Recommend Continued Therapy at Discharge : No KENNA KIM, ASHER - 02/05/2019 12:21 EST Electronically signed by Lillian [facility] Conversion Nurse Cerner at 07/07/2022 10:01 PM CDT documented in this encounter Plan of Treatment Not on file documented as of this encounter Visit Diagnoses Not on filedocumented in this encounter
--- OUTSIDE RECORDS SUMMARY | 2024-10-23 11:08 | XMS_ITS | Encounter Summary ---
Author Organization [employer] ([place], [place], [place], [place]) Address [address] [place] [address] Care Team Providers Care Chronometer Repairer Name Role Phone Unavailable Primary Care Provider Unavailabl e Encounter Details Date Type Department Care Team (Late st Contact Info) Description 02/12/2019 Transcribed Document [facility] [place] [address] [place] [address] ProviderYusuf MD [facility] [place] [address] Social History Tobacco Use Types [...] - Historical ProviderMD - 02/12/2019 5:00 AM MECHANICAL ESTIMATOR Chart Check - Review Order Profile Entered On: 02/12/2019 7:02 EST Performed On: 02/12/2019 5:00 EST by JAYA WASHINGTON REGISITERED_ Chart Check Powerplans Initiated/Discontinued as Appropriate : Yes All Active Orders Reviewed : Yes JAYA WASHINGTON REGISITERED_ - 02/12/2019 7:02 EST Electronically signed by Lillian [facility] Conversion Push Bench Operator Helper Cerner at 07/07/2022 9:55 PM CDT documented in this encounter Plan of Treatment Not on file documented as of this encounter Visit Diagnoses Not on filedocumented in this encounter
--- OUTSIDE RECORDS SUMMARY | 2024-10-23 11:08 | XMS_ITS | Encounter Summary ---
Author Organization [employer] ([place], [place], [place], [place]) Address [address] [place] [address] Care Team Providers Care Server Programmer Name Role Phone Unavailable Primary Care Provider Unavailabl e Encounter Details Date Type Department Care Team (Late st Contact Info) Description 02/15/2019 Transcribed Document [facility] [place] Medicine [address] [place] [address] ProviderYusuf MD [facility] [place] [address] Social History Tobacco Use Types [...] - Historical ProviderMD - 02/15/2019 10:46 AM TOGGLE PRESS FOLDER AND FEEDER Stroke/Warfarin Instructions Entered On: 02/15/2019 10:46 EST [...]
--- OUTSIDE RECORDS SUMMARY | 2024-10-23 11:08 | XMS_ITS | Encounter Summary ---
Author Organization [employer] ([place], [place], [place], [place]) Address [address] [place] [address] Care Team Providers Care Sleep Technician Name Role Phone Unavailable Primary Care Provider Unavailabl e Encounter Details Date Type Department Care Team (Late st Contact Info) Description 02/06/2019 Transcribed Document [facility] [place] Family Medicine [facility] [place] [address] ProviderYusuf MD [facility] [place] [address] Social History Tobacco Use Types [...] - Historical ProviderMD - 02/06/2019 3:18 PM AUTO PARTS HANDLER Treatment Intervention, OT Entered On: 02/08/2019 13:07 [...] : 02/05/2019 10:21 Co-treated by, OT : butcher's assistant (ASSISTANT BRANCH MANAGER) Personal Devices : Personal Devices Glasses Assistive [...] RD FRENCH COTA - 02/08/2019 12:59 EST Drywall Contractor Goals, OT Grooming LTG Grid Goal #1 [...] RD FRENCH COTA - 02/08/2019 12:59 EST Dressing, Lower [...] RD FRENCH COTA - 02/08/2019 12:59 EST Treatment Note Subjective [...] BLEs. Very slight movement to BUEs. MMT 03/25. Client states that her voice has also [...] Plan for Treatment : continue with POC RD FRENCH COTA - 02/08/2019 12:59 EST Pain Assessment Pain Scaled Used : 0-10 Pain scale Pain Score Pre-Intervention : 0 MANOLO MAGDY SULTANA - 02/08/2019 12:59 EST Image 1 - Images currently included in the form version of this document have not been included in the text rendition version of the form. Anticipated Discharge Needs, OT/PT Anticipated Discharge to : Unit, rehabilitation RD FRENCHMAGDY - 02/08/2019 12:59 EST [place] OT Charges OT Ther Activities Ea 15 Min : 2 ELEANOR FRENCHMAGDY GASCA - 02/08/2019 12:59 EST documented in this encounter Plan of Treatment Not on file documented as of this encounter Visit Diagnoses Not on filedocumented in this encounter
--- OUTSIDE RECORDS SUMMARY | 2024-10-23 11:08 | XMS_ITS | Encounter Summary ---
Author Organization [employer] ([place], [place], [place], [place]) Address [address] [place] [address] Care Team Providers Care Rfid Technician Name Role Phone Unavailable Primary Care Provider Unavailabl e Encounter Details Date Type Department Care Team (Late st Contact Info) Description 02/10/2019 Transcribed Document [facility] [facility] [place] [address] ProviderYusuf MD [facility] [place] [address] Social History Tobacco Use Types [...] - Historical ProviderMD - 02/10/2019 5:38 PM SPRAY MAKER Patient: FRANKY DEWITT Age: 74 Years Sex: [...]
--- OUTSIDE RECORDS SUMMARY | 2024-10-23 11:08 | XMS_ITS | Encounter Summary ---
Author Organization [employer] ([place], [place], [place], [place]) Address [address] [place] [address] Care Team Providers Care Sas Architect Name Role Phone Unavailable Primary Care Provider Unavailabl e Encounter Details Date Type Department Care Team (Late st Contact Info) Description 02/15/2019 Transcribed Document [facility] [place] [facility] [address] ProviderYusuf MD [facility] [place] [address] Social History Tobacco Use Types [...] Conversion Note - Yusuf ProviderMD - 02/15/2019 1:24 PM CRATE BUILDER [facility] [place], [place] [id number] FRANKY DEWITT :1945 Visit Time:02/05/2019 Your Visit Summary Your Care Team Admitting Physician - BASHIR RAYMOND MD-INT Attending Physician - BASHIR RAYMOND MD-INT Primary Care Physician - JACKIE RODRÍGUEZ (REF)MD-LACHELLE Referring Physician - YAHIR, UNKNOWN Your Diagnosis Myelopathy Weakness, Weakness Discharge Vitals Temperature 36.7 ??C Heart Rate (Monitored) 71 Respiratory Rate 17 Blood Pressure 101/63 What to do next Instructions From Your Care Team Rehabilitation: [facility] spinal cord unit/ / Discharge Summary: [phone] faxed [facility] Transportation: Car with family Follow up with Dr. Sue in 2 weeks. Follow up with Dr. Allen as recommended in 2-3 weeks. Discharge Follow Up Instructions: Follow-Up Appointments Follow Up with BRISEIDA SUE MD-GIBSON When Within 1 month Where: [address] [facility] [place] [address]- Medications What How Much When Instructions Next [...] ? Manage bowel and bladder problems. ? Kimberly with mental health problems. ? Manage pain. [...] 02/25/2003 Document Revised: 11/02/2016 Document Reviewed: 05/21/2014 [employer] Interactive Patient Education ?? 2019 [employer] Near-Syncope Near-syncope is when you suddenly [...] This can help with dizziness. ??? Take psbz-knf-tnrdyer and prescription medicines only as told by [...] 08/23/2008 Document Revised: 04/20/2017 Document Reviewed: 11/19/2015 [employer] Interactive Patient Education ?? 2019 [employer] Weakness Weakness is a lack of [...] sleep you need each night. ??? Take pfmy-siq-rigdxfa and prescription medicines only as told by [...] about working with a physical therapist or corporate sales trainer to help you get stronger. ??? [...] 02/17/2009 Document Revised: 04/01/2016 Document Reviewed: 12/26/2015 [employer] Interactive Patient Education ?? 2019 [employer]. Transverse Myelitis Transverse myelitis is a condition [...] may need to see a nervous systems lead (neurologist) to have tests, which may include: [...] Follow these instructions at home: ??? Take wjfg-sxa-wyypidn and prescription medicines only as told by [...] 02/25/2003 Document Revised: 11/07/2016 Document Reviewed: 08/13/2015 [employer] Interactive Patient Education ?? 2019 [employer]. prednisone (PRED lucas zelda [employer] What is the most important information I [...] may report side effects to FDA at 1-677-OSC-9983. What other drugs will affect prednisone? Sometimes [...] may affect prednisone. This includes prescription and zcxc-tyx-wcywrvs medicines, vitamins, and herbal products. Not all [...] to ensure that the information provided by [employer]. ('[employer]') is accurate, up-to-date, and complete, but no guarantee is made to that effect. Drug information contained herein may be time sensitive. [employer] information has been compiled for use by healthcare practitioners and consumers in the [place] and therefore [employer] does not warrant that uses outside of the [place] are appropriate, unless specifically indicated otherwise. [facility] drug information does not endorse drugs, diagnose patients or recommend therapy. [facility] drug information is an informational resource designed [...] effective or appropriate for any given patient. [facility] does not assume any responsibility for any aspect of healthcare administered with the aid of information [facility] provides. The information contained herein is not intended to cover all possible uses, directions, precautions, warnings, drug interactions, allergic reactions, or adverse effects. If you have questions about the drugs you are taking, check with your doctor, nurse or pharmacist. Copyright 6377-1073 [facility]. Version: 10.. Revision Date: 06/15/2018. Emergency Awareness [...] Assistance with quitting is available by contacting 0-429-FEGT-NOW. This is a free resource providing counseling, [...] range between ( 0.0 and 7.0 ) King #: 0.75 K/uL -- Normal range between ( 0.16 and 1.00 ) Eos #: 0.08 x10(3)/uL -- Normal range between ( 0.00 and 0.80 ) King %: 8.5 % -- Normal range between [...] RBC Morphology: Normal ANC #: 3 K/uL King Percent Man: 9 % -- Normal range [...] ) Urine Bilirubin Dipstick: Negative Urine Specific Organ: 1.020 -- Normal range between ( 1.005 [...] Spine Thoracic WO W Patient Name:FRANKY DEWITT Idalmis Stormy have received and understand this information and was given the opportunity to ask questions. Patient/Plant Senior Manager Name: Patient/Plant Senior Manager Signature: Relationship to Patient: Clinician/Hospital Plant Senior Manager Signature: Date: documented in this encounter Plan of Treatment Not on file documented as of this encounter Visit Diagnoses Not on filedocumented in this encounter
--- OUTSIDE RECORDS SUMMARY | 2024-10-23 11:08 | XMS_ITS | Encounter Summary ---
Author Organization [employer] ([place], [place], [place], [place]) Address [address] [place] [address] Care Team Providers Care Construction Inspector Name Role Phone Unavailable Primary Care Provider Unavailabl e Encounter Details Date Type Department Care Team (Late st Contact Info) Description 02/05/2019 Transcribed Document [facility] [place] Family Medicine [address] [place] [address] ProviderYusuf MD [address] [place] [address] Social History Tobacco Use Types [...] - Historical ProviderMD - 02/05/2019 10:53 AM CASTING MOLDER INSTALLER MOLDING AND TRIM Attempt to Treat Entered On: 02/05/2019 10:54 [...]
--- OUTSIDE RECORDS SUMMARY | 2024-10-23 11:08 | XMS_ITS | Encounter Summary ---
Author Organization [employer] ([place], [place], [place], [place]) Address [address] [place] [address] Care Team Providers Care Glass Enamel Mixer Name Role Phone Unavailable Primary Care Provider Unavailabl e Encounter Details Date Type Department Care Team (Late st Contact Info) Description 02/05/2019 Transcribed Document [facility] [place] [facility] [place] [address] ProviderYusuf MD [facility] [place] [address] Social History Tobacco Use Types [...] Conversion Note - Historical ProviderMD - 02/05/2019 2:38 PM SENIOR PLANNER Treatment Intervention, PT Entered On: 02/06/2019 11:48 [...] : Occupational Therapist Assisted by, PT : senior engineering tech/aide Personal Devices : Personal Devices Glasses [...] SIVAKUMAR MCKINLEY PT - 02/06/2019 11:44 EST [facility] Goals Mobility/Bed Mobility LTG PT Grid Goal #1 Goal #2 Activity : Supine to sit Sit to stand Assist : Independent, modified Independent, modified Date to Meet : 02/19/2019 EST 02/19/2019 EST Goal Status : Intial Goal Intial Goal SIVAKUMAR MCKINLEY, PT - 02/06/2019 11:44 EST SIVAKUMAR MCKINLEY, PT - 02/06/2019 11:44 EST Ambulation LTG [...] PLOF. Plan for Treatment : Continue POC SIVAKUMAR MCKINLEY, PT - 02/06/2019 11:44 EST Pain Assessment [...] 02/06/2019 11:44 EST Electronically signed by Lillian [facility] Conversion Restaurant Crew Member Cerner at 07/07/2022 9:58 PM CDT documented in this encounter Plan of Treatment Not on file documented as of this encounter Visit Diagnoses Not on filedocumented in this encounter
--- OUTSIDE RECORDS SUMMARY | 2024-10-23 11:08 | XMS_ITS | Encounter Summary ---
Author Organization [employer] ([place], [place], [place], [place]) Address [address] [place] [address] Care Team Providers Care Stained Glass Installer Name Role Phone Unavailable Primary Care Provider Unavailabl e Encounter Details Date Type Department Care Team (Late st Contact Info) Description 02/06/2019 Transcribed Document [facility] [place] Medicine [facility] [place] [address] ProviderYusuf MD [place] [address] Social History Tobacco Use Types [...] - Historical ProviderMD - 02/06/2019 9:20 AM UNMANNED AIRCRAFT SYSTEMS ROBOTICIST UM Authorization Entered On: 02/06/2019 9:20 EST Performed On: 02/06/2019 9:20 EST by VALENTINA GOODE Rn-Utilization Review Primary Insurance Authorization Authorization and Policy Numbers : Insurance 1 Health Plan: MEDICARE Policy Number: [id number] Authorization Number: Insurance 2 Health Plan: [employer] Policy Number: [id number] Authorization Number: Insurance Primary Name : MEDICARE Policy Number: [id number] [place] [employer] [place] Policy Number: [id number] Historical Authorization Comments-Primary : No Authorization Comments Found VALENTINA GOODE Rn-Utilization Review - 02/06/2019 9:20 EST Electronically signed by Lillian [facility] Conversion Risk Professional Cerner at 07/07/2022 9:58 PM CDT documented in this encounter Plan of Treatment Not on file documented as of this encounter Visit Diagnoses Not on filedocumented in this encounter
--- OUTSIDE RECORDS SUMMARY | 2024-10-23 11:08 | XMS_ITS | Encounter Summary ---
Author Organization [employer] ([place], [place], [place], [place]) Address [address] [place] [address] Care Team Providers Care Hand Bookbinder Name Role Phone Unavailable Primary Care Provider Unavailabl e Encounter Details Date Type Department Care Team (Late st Contact Info) Description 02/06/2019 Transcribed Document [facility] [place] [address] [place] [address] ProviderYusuf MD [facility] [place] [address] Social History Tobacco Use [...] - Historical ProviderMD - 02/06/2019 5:00 AM BATTERY ASSEMBLER Chart Check - Review Order Profile Entered On: 02/06/2019 4:09 EST Performed On: 02/06/2019 5:00 EST by Aicha Logan, RN Chart Check Powerplans Initiated/Discontinued as Appropriate : Yes All Active Orders Reviewed : Yes Aicha Logan RN - 02/06/2019 4:09 EST documented in this encounter Plan of Treatment Not on file documented as of this encounter Visit Diagnoses Not on filedocumented in this encounter
--- OUTSIDE RECORDS SUMMARY | 2024-10-23 11:08 | XMS_ITS | Encounter Summary ---
Author Organization [employer] ([place], [place], [place], [place]) Address [address] [place] [address] Care Team Providers Care Benefits Counselor Name Role Phone Unavailable Primary Care Provider Unavailabl e Encounter Details Date Type Department Care Team (Late st Contact Info) Description 02/16/2019 Transcribed Document [facility] [place] [facility] [place] [address] ProviderYusuf MD [facility] [place] [address] Social History Tobacco Use Types [...] - Historical ProviderMD - 02/16/2019 7:49 AM MAIL LIST PROCESSOR Discharge Summary, PT Entered On: 02/16/2019 7:50 [...] with a Rwx. She was D/C to [facility] for follow up rehab. ROBERT TINAJERO, [...] ROBERT TINAJERO, PT - 02/16/2019 7:49 EST Corporate Receptionist Goals Mobility/Bed Mobility LTG PT Grid Goal [...] ROBERT TINAJERO, PT - 02/16/2019 7:49 EST RBOERT TINAJERO, PT - 02/16/2019 7:49 EST ROBERT TINAJERO, PT - 02/16/2019 7:49 EST Electronically signed by Lillian [facility] Conversion Histology Aide Cerner at 07/07/2022 9:48 PM CDT documented in this encounter Plan of Treatment Not on file documented as of this encounter Visit Diagnoses Not on filedocumented in this encounter
--- OUTSIDE RECORDS SUMMARY | 2024-10-23 11:08 | XMS_ITS | Encounter Summary ---
Author Organization [employer] ([place], [place], [place], [place]) Address [address] [place] [address] Care Team Providers Care Lead Pastor Name Role Phone Unavailable Primary Care Provider Unavailabl e Encounter Details Date Type Department Care Team (Late st Contact Info) Description 02/06/2019 Transcribed Document [facility] [place] [facility] [place] [address] ProviderYusuf MD [facility] [place] [address] Social History Tobacco Use Types [...] Cerner Conversion Note - Yusuf ProviderMD - 02/06/2019 11:41 AM GOLD PROSPECTOR Initial Discharge Planning Entered On: 02/06/2019 11:49 EST Performed On: 02/06/2019 11:41 EST by DELORIS MCDONALD, Paramedic Initial Assessment I Previously Documented Living Environment [...] Patient's Home Caregiver Medical Durable Power of Lead Operator Name : no Legal Guardian : No Is Guardianship Needed : No DELORIS MCDONALD Paramedic - 02/06/2019 11:41 EST Initial Assessment II Sensory and Motor Deficits : Weakness Current Home Treatments and Equipment : Cane, Walker DELORIS MCDONALD Paramedic - 02/06/2019 11:41 EST Discharge Needs I [...] Home Health, Short term rehabilitation DELORIS MCDONALD Paramedic - 02/06/2019 11:41 EST Narrative Note Narrative Note : Talked w/ this 74 yr old W F sent as a direct admit from Dr Boyer's neurology office. Pt has tingling and weakess of both upper and lower extremities as well as inability to control bowel or bladder. Brain imaging revealed mye;opathy and pt admitted for further workup. [facility]. Just recently started [...] Pt RRS is low @ 38. DELORIS MDCONALD Paramedic - 02/06/2019 11:41 EST documented in this encounter Plan of Treatment Not on file documented as of this encounter Visit Diagnoses Not on filedocumented in this encounter
--- OUTSIDE RECORDS SUMMARY | 2024-10-23 11:08 | XMS_ITS | Encounter Summary ---
Author Organization [employer] ([place], [place], [place], [place]) Address [address] [place] [address] Care Team Providers Care Apprenticeship Training Representative Name Role Phone Unavailable Primary Care Provider Unavailabl e Encounter Details Date Type Department Care Team (Late st Contact Info) Description 02/09/2019 Transcribed Document [facility] Family Medicine [facility] [place] [address] ProviderYusuf [place] [address] Social History Tobacco Use Types [...] - Historical ProviderMD - 02/09/2019 2:51 PM WEALTH MANAGEMENT MANAGER On Going Discharge Planning Entered On: 02/09/2019 14:52 EST Performed On: 02/09/2019 14:51 EST by ALECIA GOMEZ RN-Gizzard Skin RemoverFeather Edger Progress Note Discharge Arrangements : Patient Post-Acute [...] Meeting Medical Necessity : Yes ALECIA GOMEZ RN-Gizzard Skin Remover - 02/09/2019 14:51 EST Narrative Progress Note [...] to follow for d/c needs. ALECIA GOMEZ RN-Gizzard Skin Remover - 02/08/19 09:16:23 CM reviewed chart. RRS 38. Cm to room to met pt. Pt spouse in room. spouse stated that pt is off floor for Xray. Spouse stated that DCP is to discharge home with family. Possible hh if a need. CM will continue to follow for d/c needs. ALECIA GOMEZ RN-Gizzard Skin Remover - 02/07/19 09:05:36 ALECIA GOMEZ RN-Gizzard Skin Remover - 02/09/2019 14:51 EST documented in this encounter Plan of Treatment Not on file documented as of this encounter Visit Diagnoses Not on filedocumented in this encounter
--- OUTSIDE RECORDS SUMMARY | 2024-10-23 11:08 | XMS_ITS | Encounter Summary ---
Author Organization [employer] ([place], [place], [place], [place]) Address [address] [place] [address] Care Team Providers Care Bicycle Ii Assembler Name Role Phone Unavailable Primary Care Provider Unavailabl e Encounter Details Date Type Department Care Team (Late st Contact Info) Description 02/10/2019 Transcribed Document [facility] [place] [facility] [place] [address] ProviderYusuf MD [facility] [place] [address] Social History Tobacco Use Types [...] - Historical ProviderMD - 02/10/2019 2:00 AM UNDERGROUND UTILITY LOCATOR Physician Representative Details Entered On: 02/10/2019 2:04 EST Performed [...] : Appropriate Arterial Line : No Ruth Mueller RN-Resource - 02/10/2019 2:04 EST documented in this encounter Plan of Treatment Not on file documented as of this encounter Visit Diagnoses Not on filedocumented in this encounter
--- OUTSIDE RECORDS SUMMARY | 2024-10-23 11:08 | XMS_ITS | Encounter Summary ---
Author Organization [employer] ([place], [place], [place], [place]) Address [address] [place] [address] Care Team Providers Care Hospital Cleaning Specialist Name Role Phone Unavailable Primary Care Provider Unavailabl e Encounter Details Date Type Department Care Team (Late st Contact Info) Description 02/11/2019 Transcribed Document [facility] [place] [facility] [place] [address] ProviderYusuf MD [facility] [place] [address] Social History Tobacco Use Types [...] - Historical ProviderMD - 02/11/2019 1:30 PM CELL MAKER Pain Assessment Entered On: 02/11/2019 15:30 EST [...]
--- OUTSIDE RECORDS SUMMARY | 2024-10-23 11:08 | XMS_ITS | Encounter Summary ---
Author Organization [employer] ([place], [place], [place], [place]) Address [address] [place] [address] Care Team Providers Care Helper Coordinator Name Role Phone Unavailable Primary Care Provider Unavailabl e Encounter Details Date Type Department Care Team (Late st Contact Info) Description 02/10/2019 Transcribed Document [facility] [place] [address] [place] [address] ProviderYusuf MD [facility] [place] [address] Social History Tobacco Use Types [...] - Historical ProviderMD - 02/10/2019 5:00 AM QUOTE CLERK Chart Check - Review Order Profile Entered On: 02/10/2019 4:32 EST Performed On: 02/10/2019 5:00 EST by Ruth Mueller RN-Resource Chart Check Powerplans Initiated/Discontinued as Appropriate : Yes All Active Orders Reviewed : Yes Chart Reviewed With : Ruth Mueller, RN-Resource Ruth Mueller, RN-Resource - 02/10/2019 4:32 EST documented in this encounter Plan of Treatment Not on file documented as of this encounter Visit Diagnoses Not on filedocumented in this encounter
--- OUTSIDE RECORDS SUMMARY | 2024-10-23 11:08 | XMS_ITS | Encounter Summary ---
Author Organization [employer] ([place], [place], [place], [place]) Address [address] [place] [address] Care Team Providers Care Carton Folder Name Role Phone Unavailable Primary Care Provider Unavailabl e Encounter Details Date Type Department Care Team (Late st Contact Info) Description 02/12/2019 Transcribed Document [facility] [place] Family Medicine [address] [place] [address] ProviderYusuf MD [place] [address] Social History Tobacco Use Types [...] - Historical ProviderMD - 02/12/2019 9:00 AM SCENIC ARTIST Consult Phone Call Documentation Entered On: 02/12/2019 9:21 EST Performed On: 02/12/2019 9:00 EST by Gloria Acosta [facility] Phone Call for Consults Consult Phone Call/Page Attempt : Other: Md called Consult Reason : Thrombocytosis Physician Requesting Consult : BASHIR RAYMOND MD-INT Physician Requested for Consult : EMANUEL MITCHELL MD-RHE Provider Service Notified Name : Other: Oncology Date and Time Call Returned : 02/12/2019 8:56 EST Gloria Acosta [facility] - 02/12/2019 9:20 EST Electronically signed by Lillian [facility] Conversion Contract Sheltered Workshop Supervisor Cerner at 07/07/2022 9:48 PM CDT documented in this encounter Plan of Treatment Not on file documented as of this encounter Visit Diagnoses Not on filedocumented in this encounter
--- OUTSIDE RECORDS SUMMARY | 2024-10-23 11:08 | XMS_ITS | Encounter Summary ---
Author Organization [employer] ([place], [place], [place], [place]) Address [address] [place] [address] Care Team Providers Care Board Certified Behavioral Analyst Name Role Phone Unavailable Primary Care Provider Unavailabl e Encounter Details Date Type Department Care Team (Late st Contact Info) Description 02/15/2019 Transcribed Document [facility] Radiology [address] [place] [address] Zack Jha MD [address] [place] [address] [address] [place] [id number] Social History Tobacco Use Types Packs/Day Years [...] 02/05/2019 Date of discharge: 02/15/2019 Discharge facilitys [facility] Full code at the time of discharge Referring physician Dr. Johan Sue neurology [facility] Chief complaint bilateral upper and [...] gallop, S1+ S2 No S3 or S4 Dolores.. Gastrointestinal: Soft, Non-tender, Non-distended, Normal bowel sounds. Musculoskeletal: Lower extremity weakness. Integumentary: Warm, Dry, No rash. Neurologic: Alert, Oriented, She has bilateral upper and lower extremity weakness-lower ext more so than upper. Results Review General results Interpretation: No qualifying data available Labs (Last four charted values) WBC 8.8 (FEB 14) H 13.7 (FEB 11) 6.3 (FEB 06) 7.8 (NOV 18) HB 12.1 (FEB 14) 13.7 (JAN 24) 12.6 (NOV ) 12.8 (NOV 18) HCT 35.6 (FEB 14) 40.1 (JAN 24) 39.0 (FEB 06) 38.8 [...] 154 (FEB 11) 88 (FEB 06) 97 (JAN 18) Ca L 8.2 (FEB 14) 9.1 (FEB [...] (FEB 05) Radiology Results (Last 48 hours) [id number] -- 02/05/2019 10:21 CT Abdomen Pelvis WO [...] dictated by Dr. Huffman.Transcribed by Kate Chery PA-C.Stormy have personally viewed, interpreted and dictated the [...] dictated by Dr. Huffman.Transcribed by Kate Chery PA-C.Stormy have personally viewed, interpreted and dictated the [...] per history. DC Instructions 1- DC to [facility] today 2- Follow with neurology Dr. [...] minutes Cc DC summary to: PCP, neurology [facility], neurology [facility], rheumatology Dr. Allen, documented in this encounter Plan of Treatment Not on file documented as of this encounter Visit Diagnoses Not on filedocumented in this encounter
--- OUTSIDE RECORDS SUMMARY | 2024-10-23 11:08 | XMS_ITS | Clinical Summary ---
Author Organization [facility] Address [address] [place] [address] Care Team Providers Care Filament Coil Winder Name Role Phone Jensen Santiago MD Primary Care Provider [phone] Allergies Active Allergy Reactions Criticality Noted Date [...] or (1 - 1-dose 75+ series) 2022 AUR-BUNOD-85 Vaccine (2023- season) 2023 12/16/2021, 07/31/2021, 01/28/2021, Additional history exists UKY-Influenza Vaccine (#1) 11/19/202401/29, 01/02/2021, 12/02/2020, Additional history exists [facility]Y-DTaP,Tdap,and Td [...] age to complete [place] [address] [facility] Care Teams Filament Coil Winder Relationship Specialty Start Date End Date Jensen Santiago MD [address] [place] [id number] PCP - General 12/11/20
--- OUTSIDE RECORDS SUMMARY | 2024-10-23 11:08 | XMS_ITS | Encounter Summary ---
Author Organization [employer] ([place], [place], [place], [place]) Address [address] [place] [address] Care Team Providers Care Strip Mill Operator Name Role Phone Unavailable Primary Care Provider Unavailabl e Encounter Details Date Type Department Care Team (Late st Contact Info) Description 02/05/2019 Transcribed Document [facility] [place] [facility] [place] [address] ProviderYusuf MD [facility] [place] [address] Social History Tobacco Use Types [...] - Historical ProviderMD - 02/05/2019 10:38 AM IRONWORKER MACHINE OPERATOR Pain Assessment Entered On: 02/09/2019 15:20 EST [...]
--- OUTSIDE RECORDS SUMMARY | 2024-10-23 11:08 | XMS_ITS | Encounter Summary ---
Author Organization [employer] ([place], [place], [place], [place]) Address [address] [place] [address] Care Team Providers Care Shoe Handler Name Role Phone Unavailable Primary Care Provider Unavailabl e Encounter Details Date Type Department Care Team (Late st Contact Info) Description 02/11/[address] [facility] [place] [facility] [place] [address] ProviderYusuf MD [facility] [place] [address] Social History Tobacco Use Types [...] - Historical ProviderMD - 02/11/2019 10:44 AM MANAGING MANAGER Patient: FRANKY DEWITT Age: 74 Years Sex: [...] chart, discussion with care givers, and counseling. Electronically signed by Onel Snyder Conversion Director Selection And Administration Cerner at 07/07/2022 9:59 PM CDT documented in this encounter Plan of Treatment Not on file documented as of this encounter Visit Diagnoses Not on filedocumented in this encounter
--- OUTSIDE RECORDS SUMMARY | 2024-10-23 11:08 | XMS_ITS | Encounter Summary ---
Author Organization [employer] ([place], [place], [place], [place]) Address [address] [place] [address] Care Team Providers Care Market Researcher Name Role Phone Unavailable Primary Care Provider Unavailabl e Encounter Details Date Type Department Care Team (Late st Contact Info) Description 02/15/2019 Transcribed Document [facility] [place] Medicine [facility] [place] [address] ProviderYusuf MD [facility] [address] Social History Tobacco Use Types [...] Conversion Note - Yusuf ProviderMD - 02/15/2019 10:59 AM DIRECTOR OF CLINICAL APPLICATIONS Final Discharge Planning Entered On: 02/15/2019 11:02 EST Performed On: 02/15/2019 10:59 EST by ALECIA GOMEZ RN-Local Superintendent Final Discharge Planning Discharge Arrangements : Patient Post-Acute Information Patient Name: FRANKY SCOTT Gender: Female : [birth year] Age: 74 Years [place] Referral(s): Service: Organization: Business Address: Phone Number: Acute Rehab [facility] [address] [place], [address] Patient Offered Choice/Affiliations Explained : Yes Transportation Needs : Family/Friend Discharge To Care Management : IRF -Inpatient Rehabilitation Facility- ALECIA GOMEZ RN-Local Superintendent - 02/15/2019 10:59 EST Final Narrative Note Final Narrative Note : CM reviewed chart. RRS 32. CM met to discuss DCP. [facility] spinal cord unit today. will transport. IM and Choice signed.. Cm informed pharmacy and bedside RN. Confirmed with [facility]. No further needs noted. ALECIA GOMEZ, JONATAN-Local Superintendent - 02/15/2019 10:59 EST Electronically signed by Interface, [facility] Conversion Autocad Operator Cerner at 07/07/2022 9:55 PM CDT documented in this encounter Plan of Treatment Not on file documented as of this encounter Visit Diagnoses Not on filedocumented in this encounter
--- OUTSIDE RECORDS SUMMARY | 2024-10-23 11:08 | XMS_ITS | Encounter Summary ---
Author Organization [employer] ([place], [place], [place], [place]) Address [address] [place] [address] Care Team Providers Care Plush Finisher Name Role Phone Unavailable Primary Care Provider Unavailabl e Encounter Details Date Type Department Care Team (Late st Contact Info) Description 02/15/2019 Transcribed Document [facility] [place] [facility] [place] [address] ProviderYusuf MD [facility] [place] [address] Social History Tobacco Use [...] Conversion Note - Yusuf ProviderMD - 02/15/2019 1:26 PM INSURANCE CLAIMS EXAMINER [facility] [place], [place] [id number] FRANKY DEWITT :1945 Visit Time:02/05/2019 Your Visit [...] next Instructions From Your Care Team Rehabilitation: [facility] spinal cord unit/ / Discharge Summary: [phone] faxed [facility] Transportation: Car with family Follow up with Dr. Sue in 2 weeks. Follow up with Dr. Allen as recommended in 2-3 weeks. Discharge Follow Up Instructions: Follow-Up Appointments Follow Up with BRISEIDA SUE MD-GIBSON When Within 1 month Where: [address] [place] [address]- Medications What How Much When Instructions Next [...] ? Manage bowel and bladder problems. ? [place] with mental health problems. ? Manage pain. [...] 02/25/2003 Document Revised: 11/02/2016 Document Reviewed: 05/21/2014 [employer] Interactive Patient Education ?? 2019 [employer]. Near-Syncope Near-syncope is when you suddenly [...] This can help with dizziness. ??? Take eswy-deh-pjfjzaz and prescription medicines only as told by [...] 08/23/2008 Document Revised: 04/20/2017 Document Reviewed: 11/19/2015 Else[employer]II[employer] Interactive Patient Education ?? 2019 [employer]. Weakness Weakness is a lack of [...] sleep you need each night. ??? Take ekjb-ruj-tysoqpd and prescription medicines only as told by [...] about working with a physical therapist or hardware trainer to help you get stronger. ??? [...] 02/17/2009 Document Revised: 04/01/2016 Document Reviewed: 12/26/2015 [employer] Interactive Patient Education ?? 2019 Heidi Shaulis. Transverse Myelitis Transverse myelitis is a condition [...] You may need to see a nervous system configuration specialist (neurologist) to have tests, which may include: [...] Follow these instructions at home: ??? Take ztup-wzf-gopyerq and prescription medicines only as told by [...] 02/25/2003 Document Revised: 11/07/2016 Document Reviewed: 08/13/2015 [employer]Light Interactive Patient Education ?? 2019 Heidi Shaulis. prednisone (PRED lucas zelda Wallsos What is [...] may report side effects to FDA at 0-966-QKG-0911. What other drugs will affect prednisone? Sometimes [...] may affect prednisone. This includes prescription and itqa-iac-dalnuoq medicines, vitamins, and herbal products. Not all [...] to ensure that the information provided by [employer] ('[employer]') is accurate, up-to-date, and complete, but no guarantee is made to that effect. Drug information contained herein may be time sensitive. [employer] information has been compiled for use by healthcare practitioners and consumers in the [place] and therefore [employer] does not warrant that uses outside of the [place] are appropriate, unless specifically indicated otherwise. [employer] drug information does not endorse drugs, diagnose patients or recommend therapy. [employer] drug information is an informational resource designed [...] effective or appropriate for any given patient. [facility] does not assume any responsibility for any aspect of healthcare administered with the aid of information [facility] provides. The information contained herein is not intended to cover all possible uses, directions, precautions, warnings, drug interactions, allergic reactions, or adverse effects. If you have questions about the drugs you are taking, check with your doctor, nurse or pharmacist. Copyright 4399-1258 [facility] [employer]. Version: 10.. Revision Date: 06/15/2018. Emergency Awareness [...] Assistance with quitting is available by contacting 8-091-DNRW-NOW. This is a free resource providing counseling, [...] range between ( 0.0 and 7.0 ) Shelby #: 0.75 K/uL -- Normal range between ( 0.16 and 1.00 ) Eos #: 0.08 x10(3)/uL -- Normal range between ( 0.00 and 0.80 ) Shelby %: 8.5 % -- Normal range between [...] RBC Morphology: Normal ANC #: 3 K/uL Shelby Percent Man: 9 % -- Normal range [...] ) Urine Bilirubin Dipstick: Negative Urine Specific [place]: 1.020 -- Normal range between ( 1.005 [...] was given the opportunity to ask questions. Patient/Reservations And Ticketing Agent Name: Patient/Reservations And Ticketing Agent Signature: Relationship to Patient: Clinician/Hospital Reservations And Ticketing Agent Signature: Date: Electronically signed by Magan Snyderh Conversion Engineering Equipment Operator Cerner at 07/07/2022 9:55 PM CDT documented in this encounter Plan of Treatment Not on file documented as of this encounter Visit Diagnoses Not on filedocumented in this encounter
--- OUTSIDE RECORDS SUMMARY | 2024-10-23 11:08 | XMS_ITS | Encounter Summary ---
Author Organization [employer] ([place], [place], [place], [place]) Address [address] [place] [address] Care Team Providers Care Car Usher Name Role Phone Unavailable Primary Care Provider Unavailabl e Encounter Details Date Type Department Care Team (Late st Contact Info) Description 02/12/2019 Transcribed Document [facility] [place] Family Medicine [facility] [place] [address] ProviderYusuf MD [facility] [place] [address] Social History Tobacco Use [...] - Historical ProviderMD - 02/12/2019 8:56 AM COOK CAMP Consult Phone Call Documentation Entered On: 02/12/2019 9:20 EST Performed On: 02/12/2019 8:56 EST by Gloria Acosta [facility] Phone Call for Consults Consult Phone Call/Page Attempt : First call Gloria Acosta [facility] - 02/12/2019 9:20 EST Consult Reason : Cervical Myopathy Physician Requesting Consult : BASHIR RAYMOND MD-INT Provider Service Notified Name : Other: Rheumatology Date and Time Call Returned : 02/12/2019 8:56 EST Gloria Acosta [facility] - 02/12/2019 9:17 EST Electronically signed by Lillian [facility] Conversion Casing Inspector Cerner at 07/07/2022 9:51 PM CDT documented in this encounter Plan of Treatment Not on file documented as of this encounter Visit Diagnoses Not on filedocumented in this encounter
--- OUTSIDE RECORDS SUMMARY | 2024-10-23 11:08 | XMS_ITS | Encounter Summary ---
Author Organization [employer] ([place], [place], [place], [place]) Address [address] [place] [address] Care Team Providers Care Dietitian Chief Name Role Phone Unavailable Primary Care Provider Unavailabl e Encounter Details Date Type Department Care Team (Late st Contact Info) Description 02/06/[address] [facility] [place] Family Medicine [facility] includes the [facility] [place] [address] ProviderYusuf MD Count includes the [facility] [place] [address] Social History Tobacco Use Types [...] - Historical ProviderMD - 02/06/2019 2:00 AM BLENDER SNUFF Conveyor Feeder Details Entered On: 02/06/2019 1:49 EST Performed [...] Service : Appropriate Arterial Line : No Aciha Logan, RN - 02/06/2019 1:49 EST documented in this encounter Plan of Treatment Not on file documented as of this encounter Visit Diagnoses Not on filedocumented in this encounter
--- OUTSIDE RECORDS SUMMARY | 2024-10-23 11:08 | XMS_ITS | Encounter Summary ---
Author Organization [employer] ([place], [place], [place], [place]) Address [address] [place] [address] Care Team Providers Care Mortgage Loan Interviewer Name Role Phone Unavailable Primary Care Provider Unavailabl e Encounter Details Date Type Department Care Team (Late st Contact Info) Description 02/15/2019 Transcribed Document [facility] [place] Family Medicine [address] [place] [address] ProviderYusuf MD [facility] [address] Social History Tobacco Use Types [...] - Historical ProviderMD - 02/15/2019 5:00 AM PATROL SERGEANT Chart Check - Review Order Profile Entered On: 02/15/2019 6:55 EST Performed On: 02/15/2019 5:00 EST by Esther Cheek RN Chart Check All Active Orders Reviewed : Yes Esther Cheek RN - 02/15/2019 6:55 EST Electronically signed by Lillian [facility] Conversion Misdraw Hand Cerner at 07/07/2022 9:50 PM CDT documented in this encounter Plan of Treatment Not on file documented as of this encounter Visit Diagnoses Not on filedocumented in this encounter
--- OUTSIDE RECORDS SUMMARY | 2024-10-23 11:08 | XMS_ITS | Encounter Summary ---
Author Organization [employer] ([place], [place], [place], [place]) Address [address] [place] [address] Care Team Providers Care Chute Greaser Name Role Phone Unavailable Primary Care Provider Unavailabl e Encounter Details Date Type Department Care Team (Late Contact Info) Description 02/12/2019 Transcribed Document [facility] Family Medicine [facility] [place] [address] ProviderYusuf [place] [address] Social History Tobacco Use Types [...] - Historical ProviderMD - 02/12/2019 5:20 PM MOTOR COACH DRIVER Patient: FRANKY SCOTT Age: 74 Years Sex: [...] Tab, Oral, Daily Electronically signed by Lillian, [facility] Conversion Soaker Hides Cerner at 07/07/2022 9:51 PM CDT documented in this encounter Plan of Treatment Not on file documented as of this encounter Visit Diagnoses Not on filedocumented in this encounter
--- OUTSIDE RECORDS SUMMARY | 2024-10-23 11:08 | XMS_ITS | Encounter Summary ---
Author Organization [employer] ([place], [place], [place], [place]) Address [address] [place] [address] Care Team Providers Care Commissary Helper Name Role Phone Unavailable Primary Care Provider Unavailabl e Encounter Details Date Type Department Care Team (Late st Contact Info) Description 02/11/2019 Transcribed Document [facility] [place] [address] [place] [address] [place] [address] Social History Tobacco Use Types [...] - Historical ProviderMD - 02/11/2019 5:00 PM PANEL MAKER Chart Check - Review Order Profile Entered [...]
--- OUTSIDE RECORDS SUMMARY | 2024-10-23 11:08 | XMS_ITS | Encounter Summary ---
Author Organization [employer] ([place], [place], [place], [place]) Address [address] [place] [address] Care Team Providers Care Leadership Intern Name Role Phone Unavailable Primary Care Provider Unavailabl e Encounter Details Date Type Department Care Team (Late st Contact Info) Description 02/12/2019 Transcribed Document [facility] [place] Family Medicine [facility] [place] [address] ProviderYusuf [place] [address] Social History Tobacco Use Types [...] - Historical ProviderMD - 02/12/2019 9:00 AM SUGAR CONTROLLER Pain Assessment Entered On: 02/12/2019 11:07 EST [...]
--- OUTSIDE RECORDS SUMMARY | 2024-10-23 11:08 | XMS_ITS | Encounter Summary ---
Author Organization [employer] ([place], [place], [place], [place]) Address [address] [place] [address] Care Team Providers Care Demand Planner Name Role Phone Unavailable Primary Care Provider Unavailabl e Encounter Details Date Type Department Care Team (Late st Contact Info) Description 02/05/2019 Transcribed Document [facility] Radiology [address] [place] [address] Anne Peters MD [address] [place] [address] [address] [id number] Social History Tobacco Use Types Packs/Day Years [...] discharge Referring physician Dr. Johan Sue neurology [facility] Chief complaint bilateral upper and [...] Q4H, PRN: Nausea heparin: 5,000 Units, SubCutaneous, [id number] hydrALAZINE: 5 mg, IV Push, Q4H, PRN: Hypertension morphine: 2 mg, IV Push, Q2H, PRN: Pain (Severe 7-10), No qualifying data available , Medications (8) Active Scheduled: (2) famotidine 20 mg tab 20 mg 1 Tab, Oral, Q12H heparin 5,000 Units, SubCutaneous, [id number] Continuous: (0) PRN: (6) acetaminophen 325 mg [...] gallop, S1+ S2 No S3 or S4 [place].. Gastrointestinal: Soft, Non-tender, Non-distended, Normal bowel sounds. [...]
--- OUTSIDE RECORDS SUMMARY | 2024-10-23 11:08 | XMS_ITS | Encounter Summary ---
Author Organization [employer] ([place], [place], [place], [place]) Address [address] [place] [address] Care Team Providers Care Pbx Operator Name Role Phone Unavailable Primary Care Provider Unavailabl e Encounter Details Date Type Department Care Team (Late st Contact Info) Description 02/06/2019 Transcribed Document [facility] [place] Family Medicine [address] [place] [address] ProviderYusuf MD [facility] [place] [address] Social History Tobacco Use Types [...] - Historical ProviderMD - 02/06/2019 5:00 PM CRAB FISHERMAN Chart Check - Review Order Profile Entered [...]
--- OUTSIDE RECORDS SUMMARY | 2024-10-23 11:08 | XMS_ITS | Encounter Summary ---
Author Organization [employer] ([place], [place], [place], [place]) Address [address] [place] [address] Care Team Providers Care M1A1 Tank Crewman Name Role Phone Unavailable Primary Care Provider Unavailabl e Encounter Details Date Type Department Care Team (Late st Contact Info) Description 02/15/2019 Transcribed Document [facility] [place] [facility] [place] [address] ProviderYusuf MD [facility] [place] [address] Social History Tobacco Use Types [...] Conversion Note - Yusuf ProviderMD - 02/15/2019 11:32 AM ACCOUNTS CLERK Final Discharge Planning Entered On: 02/15/2019 11:35 EST Performed On: 02/15/2019 11:32 EST by ALECIA GOMEZ RN-Offset Press Operator Final Discharge Planning Discharge Arrangements : Patient Post-Acute Information Patient Name: FRANKY DEWITT Gender: Female : [birth year] Age: 74 Years [place] Referral(s): Service: Organization: Business Address: Phone Number: Acute Rehab [facility] [address] [place], [address] Patient Offered Choice/Affiliations Explained : Yes Transportation Needs : Family/Friend ALECIA GOMEZ RN-Offset Press Operator - 02/15/2019 11:32 EST Final Narrative Note Final Narrative Note : CM reviewed chart. CM met with pt to discuss DCP. [facility] spinal Cord unti today. will transport. IM and choice signed. Report to Rehabilitation: [facility] spinal cord unit/ Discharge Summary: [phone] faxed [facility] Follow up with Dr. Sue in 2 weeks. Pt informed. Follow up with Dr. Allen as recommended in 2-3 weeks. Pt informed. Historical Narrative Note : CM reviewed chart. RRS 32. CM met to discuss DCP. [facility] spinal cord unit today. will transport. IM and Choice signed.. Cm informed pharmacy and bedside RN. Confirmed with [facility]. No further needs noted. ALECIA GOMEZ, RN-Offset Press Operator - 02/15/19 11:02:20 ALECIA GOMEZ, JONATAN-Offset Press Operator - 02/15/2019 11:32 EST documented in this encounter Plan of Treatment Not on file documented as of this encounter Visit Diagnoses Not on filedocumented in this encounter
--- OUTSIDE RECORDS SUMMARY | 2024-10-23 11:08 | XMS_ITS | Encounter Summary ---
Author Organization [employer] ([place], [place], [place], [place]) Address [address] [place] [address] Care Team Providers Care Automatic Dry Starch Operator Name Role Phone Unavailable Primary Care Provider Unavailabl e Encounter Details Date Type Department Care Team (Late st Contact Info) Description 02/11/2019 Transcribed Document [facility] Radiology [address] [place] [address] Anne Peters MD [address] [place] [address] [address] [place] [id number] Social History Tobacco Use Types Packs/Day Years [...] 02/05/[address] Johan Sue neurology [facility] Chief complaint bilateral upper and lower [...] pathology. Patient was referred To neurologist Dr. oJhan Conway. She was seen in the office [...] leg weakness better, kaitlynn steroids well 1125-pt Past medical history is significant for prior [...] At risk for sleep apnea / IMO [id number] / Confirmed, Active Problems (3) At risk for sleep apnea HLD (hyperlipidemia) HTN (hypertension) Objective VS/Measurements Vitals Signs (last 24 hrs) Last Charted Minimum Maximum Temp 98.4 (FEB 11 06:35) 98 (FEB 10 17:36) 98.4 (FEB 10 14:30) Mon HR 75 (FEB 11:35) 72 (FEB 11:33) 87 (FEB 10 14:30) Resp Rate 18 (FEB 11:) 16 (FEB 10 17:36) 18 (FEB 10 22:12) SBP H 141 (FEB 11:) 113 (FEB 10 22:12) H 158 (FEB 11:) DBP 75 (FEB 11 06:35) 69 (FEB 10 14:30) 86 (FEB 11:33) MAP 115 (FEB 11:35) 81 (FEB 10 14:30) 115 (FEB 11:35) SpO2 L 92 (FEB 11:) L 92 (FEB 11:35) 94 (FEB 11:) General: No acute distress. Eye: Normal conjunctiva. HENT: Normocephalic. Neck: Supple, No jugular venous distention. Respiratory: Lungs are clear to auscultation, Respirations are non-labored, Breath sounds are equal. Cardiovascular: Normal rate, Regular rhythm, No gallop, S1+ S2 No S3 or S4 [place].. Gastrointestinal: Soft, Non-tender, Non-distended, Normal bowel sounds. [...]
--- OUTSIDE RECORDS SUMMARY | 2024-10-23 11:08 | XMS_ITS | Referral Summary ---
Author Organization [employer] ([place], [place], [place], [place]) Address [address] [place] [address] Care Team Providers Care Care Aide Name Role Phone Unavailable Primary Care Provider [...]
--- OUTSIDE RECORDS SUMMARY | 2024-10-23 11:08 | XMS_ITS | Encounter Summary ---
Author Organization [employer] ([place], [place], [place], [place]) Address [address] [place] [address] Care Team Providers Care Bumper Operator Name Role Phone Unavailable Primary Care Provider Unavailabl e Encounter Details Date Type Department Care Team (Late st Contact Info) Description 02/06/2019 Transcribed Document [facility] Radiology [address] [place] [address] Anne Peters MD [address] [place] [address] [address] [place] [id number] Social History Tobacco Use Types Packs/Day Years [...] discharge Referring physician Dr. Joh[facility]y [facility] [...] At risk for sleep apnea / IMO [id number] / Confirmed, Active Problems (3) At risk [...] gallop, S1+ S2 No S3 or S4 [place].. Gastrointestinal: Soft, Non-tender, Non-distended, Normal bowel sounds. [...] (FEB 05) Radiology Results (Last 48 hours) [id number] -- 02/05/2019 10:21 MRI Spine Cervical WO [...] cord from the cervicomedullary junction to the C4-K9bpmgf. There is mild enhancement of the cord. [...] broad-based posterior disc bulging at C4-C5. At C6-K7usvcf is a central to left paracentral disc [...]
== END 2024-10-23 23:59 | disposition home or self-care (01) ==
LOC: RAD 11:02
PROVIDERS: PCP Family Medicine; Visit Provider Family Medicine
DX: M17.12 Unilateral primary osteoarthritis, left knee (principal)
CPT/HCPCS: 73562

== ENCOUNTER 2024-11-16 14:55 | Outpatient (CLI) | payer MEDICARE, OTHER, SELFPAY ==
--- OUTSIDE RECORDS SUMMARY | 2024-10-17 06:15 | XMS_ITS ---
Author Organization [facility] Address [address] [place] [id number] Care Team Providers Care Dividend Deposit Voucher Clerk Name Role Phone Reece Santiagoian Primary Care Provider [phone] Allergies Allergen (clinical drug ingredient) Drug/Non Drug [...] 10/17/2024 Encounters Encounter Location Date Provider Diagnosis [facility] [address] [place], [place] [phone] 10/17/2024 Jensen Santiago Chronic UTI N39.0 ; [...] * Lan DEWITTOB: 7 (79 yo F)Acc No.[id number]:10/17/2024 Progress Notes Patient: Kelli THOMAS Provider: Kacie Santiago M.D. :1945 A ge:79 Y S ex:Female Date:10/17/2024 Address:[address] [place] [address] KHOI JOSE, [id number] Subjective: * Chief Complaints: * 1 . 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 * [...] arthritic changes in knee, sent to to inform.Henrietta Horan 11/05/2024 01:48:48 PM EDT > pt informed. 3.?Non morbid obesity? Notes: Discussed starting Wegovy?? * Procedure Codes: G 2211 Complex e/[place], [address] Urinalysis, no micro, 1036F TOBACCO NON- USER, G8783 BP SCR PRFRM RCMDD DEFIND SCR INTVL, G8752 MOST RECENT SYSTOLIC BP < 140MM HG, G8754 MOST RECENT DIASTOLIC BP < 90MM HG * Follow Up: v ia phone to report test results * Images: Billing Information: * Visit Code: 50292 Office Visit, Est Pt., Level 3. * Procedure Codes: G2211 Complex e/[place]. [address] Urinalysis, no micro. 1036F TOBACCO NON-USER. G8783 BP SCR PRFRM RCMDD DEFIND SCR INTVL. G8752 MOST RECENT SYSTOLIC BP < 140MM HG. G8754 MOST RECENT DIASTOLIC BP < 90MM HG. * Electronic signature of Valencia Santiago MD on 11/16/2024 at 02:58 PM EDT Sign off status: Pending * Provider: Kacie Santiago M.D. Date: 10/17/2024 Generated for Drew reza/Shanelle/eTransmitting on: 0 11/16/2024 02:58 PM EDT History and Physical Notes * [...]
--- OUTSIDE RECORDS SUMMARY | 2024-11-05 10:45 | XMS_ITS ---
Author Organization [facility] Address [address] [place] [phone] Care Team Providers Care Embroiderer Name Role Phone Jensen Santiago Primary Care [...] Interpretation:sensitive Performing Lab: Notes/Report: Test performed by [employer] [address] [place] [address] , [address], [place] [address] Danilo Duran MD, Flavor Room Worker CLIA: [id number] Specimen Source Urine - Cath Culture, Urine See Below See Microbiol ogy Report Escherichia coli ESBL 50,000-100,000 CFU /ml Escherichia coli ESBL This isolate is a confirmed ESBL (Extended Spectrum Beta-Lactamase) theater company producer and should be considered clinically resistant [...] 11/05/2024 Encounters Encounter Location Date Provider Diagnosis [facility] [address] [place] [phone] 11/05/2024 Jensen Santiago Chronic UTI N 39.0 [...] * Jaci SCOTTenDOB: 7 (79 yo F)Acc No.[id number]:11/05/2024 Progress Notes Patient: Kelli THOMAS Provider: Kacie Santiago M.D. :1945 A ge:79 Y S ex:Female Date:11/05/2024 Address:[facility] [place], [id number] Subjective: * Chief Complaints: * * HPI: [...] G 2211 Complex e/[place], [address] Urinalysis, no micro, 1036F TOBACCO NON- USER, G8783 BP SCR PRFRM RCMDD DEFIND SCR INTVL, G8752 MOST RECENT SYSTOLIC BP < 140MM HG, G8754 MOST RECENT DIASTOLIC BP < 90MM HG * Follow Up: v ia phone to report test results * Images: Billing Information: * Visit Code: 23146 Office Visit, Est Pt., Level 3. * Procedure Codes: G2211 Complex e/[place]. [address] Urinalysis, no micro. 1036F TOBACCO NON-USER. G8783 BP SCR PRFRM RCMDD DEFIND SCR INTVL. G8752 MOST RECENT SYSTOLIC BP < 140MM HG. G8754 MOST RECENT DIASTOLIC BP < 90MM HG. * Electronic signature of Valencia Santiago MD on 11/16/2024 at 02:57 PM EDT Sign off status: Pending * Provider: Kacie Santiago M.D. Date: 0 11/05/2024 Generated for Drew reza/Shanelle/Chetitting on: 0 11/16/2024 02:57 PM EDT History and Physical Notes * [...]
--- OUTSIDE RECORDS SUMMARY | 2024-11-13 06:30 | XMS_ITS ---
Author Organization [facility] Address [address] [facility] [address] [place] [phone] Care Team Providers Care Hiv Prevention Specialist Name Role Phone Jensen Santiago Primary Care [...] Interpretation: Performing Lab: Notes/Report: Test performed by [employer], [employer] [address] [place] [address] [place] [address] Danilo Duran MD, Engine Lathe Set Up Operator Tool [facility]: [id number] Specimen Source Urine - Cath Culture, Urine See Below See Microbiol ogy Report Klebsiella pneumoniae ESBL 25,000-50,000 CFU/ml Klebsiella pneumoniae ESBL This isolate is a confirmed ESBL (Extended Spectrum Beta-Lactamase) newscast producer and should be considered clinically resistant [...] 11/13/2024 Encounters Encounter Location Date Provider Diagnosis [facility] [address] [facility] [address] [place], [place] [phone] 11/13/2024 Jensen Santiago Chronic UTI N39.0 ; [...] * Jaci SCOTTenDOB: 7 (79 yo F)Acc No.[id number]:11/13/2024 Progress Notes Patient: Kelli THOMAS Provider: Kacie Santiago M.D. :1945 A ge:79 Y S ex:Female Date:11/13/2024 Address:[address] [place] [address] [place], [id number] Subjective: * Chief Complaints: * 1 . [...] G 2211 Complex e/[place], [address] Urinalysis, no micro, [address] CAPILLARY BLOOD DRAW, 69438 CBC WITH AUTO DIFF * Follow Up: v ia phone to report test results * Images: Billing Information: * Visit Code: 44779 Office Visit, Est Pt., Level 4. * Procedure Codes: G2211 Complex e/[place]. [address] Urinalysis, no micro. 16343 CAPILLARY BLOOD DRAW. 81437 CBC WITH AUTO DIFF. * Electronic signature of Valencia Santiago MD on 11/16/2024 at 02:57 PM EDT Sign off status: Pending * Provider: Kacie Santiago M.D. Date: 0 11/13/2024 Generated for Drew reza/Shanelle/Chetitting on: 11/16/2024 02:57 PM EDT History and Physical [...]
--- OUTSIDE RECORDS SUMMARY | 2024-11-16 05:03 | XMS_ITS ---
Author Organization [facility] Address [address] [facility] [address] [place] [phone] Care Team Providers Care Metallurgical Engineering Technician Name Role Phone Jensen Santiago Primary Care Provider REASON FOR VISIT abnormal urine cx Medications Medication SIG (Take, Route, Fr equency, Duration) Notes Start Date End Date Status Ertapenem Sodium 1 GM 1 gram IM Injectio n daily; Duration: 5 days 11/16/2024 Active Encounters Encounter Location Date Provider Diagnosis [facility] [address] [facility] [address] [place] [id number] 11/16/2024 Jensen Santiago Acute UTI N39.0 Assessments Encounter Date Diagnosis (ICD Code) Assessment Notes Treatment Notes Treatment Clinical Notes Section Notes 11/16/2024 Acute UTI (ICD-10 - N39.0) Plan Of Treatment Medication Medication Name Sig Start Date Stop Date Notes Ertapenem Sodium 1 GM 1 gram IM Injectio n daily; Duration: 5 days 11/16/2024 Progress Notes * Lan DEWITTOB: 7 (79 yo F)Acc No.[id number]:11/16/2024 Patient: Kelli THOMAS :1945 A ge:79 Y S ex:Female Address:[address] [facility], [address] * Refills Start Ertapenem Sodium Solution Reconstituted, [...] * Date: Generated for Drew reza/Shanelle/eTquentinsmitting on: 11/16/2024 03:00 PM EDT
--- OUTSIDE RECORDS SUMMARY | 2024-11-16 14:57 | XMS_ITS | Encounter Summary ---
Author Organization [employer] ([place], [place], [place], [place]) Address [address] [place] [address] Care Team Providers Care Journeyman Pipefitter Name Role Phone Unavailable Primary Care Provider Unavailabl e Encounter Details Date Type Department Care Team (Late st Contact Info) Description 02/12/2019 Transcribed Document [facility] Family Medicine [address] [place] [address] ProviderYusuf MD [facility] [address] Social History Tobacco Use Types [...] - Historical ProviderMD - 02/12/2019 5:00 PM FOOD AND BEVERAGE OUTLETS MANAGER Chart Check - Review Order Profile Entered [...]
--- OUTSIDE RECORDS SUMMARY | 2024-11-16 14:57 | XMS_ITS | Encounter Summary ---
Author Organization [employer] ([place], [place], [place], [place]) Address [address] [place] [address] Care Team Providers Care Boiler Assistant Operator Name Role Phone Unavailable Primary Care Provider Unavailabl e Encounter Details Date Type Department Care Team (Late st Contact Info) Description 02/14/2019 Transcribed Document [facility] [place] [facility] [place] [address] ProviderYusuf MD [place] [address] Social History Tobacco Use Types [...] - Historical ProviderMD - 02/14/2019 2:46 PM STRATEGY CONSULTANT On Going Discharge Planning Entered On: 02/14/2019 14:52 EST Performed On: 02/14/2019 14:46 EST by Neva Cotto RN Care Management Progress Note Designation of Choice Signed : Yes (Comment: Patient given a list of providers for STR with associated STARS rating. Patient selected [facility]. [Neva Cotto RN - 02/14/2019 15:08 [...] abdomen and pelvis with/out contrast completed. DCP: [facility] spinal cord unit tomorrow. will transport. IM and Choice signed. Historical Progress Note : Patient chose [facility] for STR. CM notified that patient has been approved for admission. Dr. Bales in to speak with patient, family and CM. Will order diagnostic scand for tomorrw and plan on admission to [facility] on , 02/15. Neva Cotto RN [...] prefer STR. Patient's [facility] choice [facility] be [facility] and second choice is [facility]. Referrals sent through [facility]. CM will continue to follow. Neva Cotto RN - 02/13/19 09:37:24 CM reviewed chart. Neuro consult and following, MRI Cervical Thor. and Lumbar Spine. Discussed DCP with pt including HH vs Rehab. CM Will continue to follow for d/c needs. ALECIA GOMEZ, RN-Estimating Manager - 02/09/19 14:52:38 CM reviewed chart. Cm [...] to follow for d/c needs. ALECIA GOMEZ, RN-Estimating Manager - 02/08/19 09:16:23 CM reviewed chart. RRS 38. Cm to room to met pt. Pt spouse in room. spouse stated that pt is off floor for Xray. Spouse stated that DCP is to discharge home with family. Possible hh if a need. CM will continue to follow for d/c needs. ALECIA GOMEZ, JONATAN-Estimating Manager - 02/07/19 09:05:36 Neva Cotto RN - 02/14/2019 15:08 EST Electronically signed by Llilian [facility] Conversion Stripping Cutter And Winder Cerner at 07/07/2022 9:52 PM CDT documented in this encounter Plan of Treatment Not on file documented as of this encounter Visit Diagnoses Not on filedocumented in this encounter
--- OUTSIDE RECORDS SUMMARY | 2024-11-16 14:57 | XMS_ITS | Encounter Summary ---
Author Organization [employer] ([place], [place], [place], [place]) Address [address] [place] [address] Care Team Providers Care Power Generation Turbine Room Operator Name Role Phone Unavailable Primary Care Provider Unavailabl e Encounter Details Date Type Department Care Team (Late st Contact Info) Description 02/12/2019 Transcribed Document [facility] [address] [facility] [address] [place] [address] Fernando Dotson MD [address] [facility] [place] [address] Social History Tobacco Use Types Packs/Day Years [...] for transverse myelitis. She was admitted to [facility] on 02/05/2019 under the medicine service for [...] 5/5 d, 5/5 b, 5/5 t, 5/[address] 5/5 d, 5/5 b, 5/5 t, 5/5 purchasing engineer lle 4+/5 hf, 4+/5 ke, 4+/5 df, [...] CLOUDY2 (Abnormal) 02/11/2019 22:29 EST Urine Specific [place] 1.020 02/11/2019 22:29 EST Urine pH Dipstick [...]
--- OUTSIDE RECORDS SUMMARY | 2024-11-16 14:57 | XMS_ITS | Encounter Summary ---
Author Organization [employer] ([place], [place], [place], [place]) Address [address] [place] [address] Care Team Providers Care Sandblast Operator Name Role Phone Unavailable Primary Care Provider Unavailabl e Encounter Details Date Type Department Care Team (Late st Contact Info) Description 02/13/2019 Transcribed Document [facility] Family Medicine [address] [place] [address] ProviderYusuf MD [facility] [place] [address] Social History Tobacco Use Types [...] - Historical ProviderMD - 02/13/2019 2:00 AM JUTE BAG SEWER Member Of Congress Details Entered On: 02/13/2019 4:00 EST Performed [...]
--- OUTSIDE RECORDS SUMMARY | 2024-11-16 14:57 | XMS_ITS | Encounter Summary ---
Author Organization [employer] ([place], [place], [place], [place]) Address [address] [place] [address] Care Team Providers Care Director Of Instrumental Music Name Role Phone Unavailable Primary Care Provider Unavailabl e Encounter Details Date Type Department Care Team (Late st Contact Info) Description 02/13/2019 Transcribed Document [facility] Family Medicine [place] [address] ProviderYusuf [place] [address] Social History Tobacco Use Types [...] - Yusuf ProviderMD - 02/13/2019 9:25 AM TOWEL WEAVER On Going Discharge Planning Entered On: 02/13/2019 [...] prefer STR. Patient's first choice would be [facility] in [place] and second choice is [facility]. Referrals sent through [facility]. CM will continue to follow. Historical Progress Note : CM reviewed chart. Neuro consult and following, MRI Cervical Thor. and Lumbar Spine. Discussed DCP with pt including HH vs Rehab. CM Will continue to follow for d/c needs. ALCEIA GOMEZ RN-Grout Machine Operator - 02/09/19 14:52:38 CM reviewed chart. [...] to follow for d/c needs. ALECIA GOMEZ RN-Grout Machine Operator - 02/08/19 09:16:23 CM reviewed chart. RRS 38. Cm to room to met pt. Pt spouse in room. spouse stated that pt is off floor for Xray. Spouse stated that DCP is to discharge home with family. Possible hh if a need. CM will continue to follow for d/c needs. ALECIA GOMEZ RN-Grout Machine Operator - 02/07/19 09:05:36 Neva Cotto RN - 02/13/2019 9:25 EST Electronically signed by Lillian [facility] Conversion Plant Operator Control Room Operator Cerner at 07/07/2022 10:01 PM CDT documented in this encounter Plan of Treatment Not on file documented as of this encounter Visit Diagnoses Not on filedocumented in this encounter
--- OUTSIDE RECORDS SUMMARY | 2024-11-16 14:57 | XMS_ITS | Encounter Summary ---
Author Organization [employer] ([place], [place], [place], [place]) Address [address] [place] [address] Care Team Providers Care Crane Helper Name Role Phone Unavailable Primary Care Provider Unavailabl e Encounter Details Date Type Department Care Team (Late st Contact Info) Description 02/13/2019 Transcribed Document [facility] Radiology 1 [place] [address] Zack Jha MD [address] [place] [address] [place] [id number] Social History Tobacco Use Types Packs/Day Years [...] 02/05/[address] Johan Sue neurology [place] [...] gallop, S1+ S2 No S3 or S4 [place].. Gastrointestinal: Soft, Non-tender, Non-distended, Normal bowel sounds. [...] complaint to look for a facility in [place], close to their home. documented in this encounter Plan of Treatment Not on file documented as of this encounter Visit Diagnoses Not on filedocumented in this encounter
--- OUTSIDE RECORDS SUMMARY | 2024-11-16 14:57 | XMS_ITS | Encounter Summary ---
Author Organization [employer] ([place], [place], [place], [place]) Address [address] [place] [address] Care Team Providers Care Nurse Informaticist Name Role Phone Unavailable Primary Care Provider Unavailabl e Encounter Details Date Type Department Care Team (Late st Contact Info) Description 02/13/2019 Transcribed Document [facility] [place] [facility] [place] [address] ProviderYusuf MD [facility] [place] [address] Social History Tobacco Use Types [...] - Historical ProviderMD - 02/13/2019 5:00 PM INTERIOR DESIGN COORDINATOR Chart Check - Review Order Profile [...]
--- OUTSIDE RECORDS SUMMARY | 2024-11-16 14:57 | XMS_ITS | Encounter Summary ---
Author Organization [employer] ([place], [place], [place], [place]) Address [address] [place] [address] Care Team Providers Care City Secretary Name Role Phone Unavailable Primary Care Provider Unavailabl e Encounter Details Date Type Department Care Team (Late st Contact Info) Description 02/13/2019 Transcribed Document [facility] Family Medicine [address] [place] [address] ProviderYusuf MD [facility] [place] [address] Social History Tobacco Use Types [...] - Historical ProviderMD - 02/13/2019 5:00 AM FUR DRY CLEANER HAND Chart Check - Review Order Profile Entered On: 02/13/2019 6:10 EST Performed On: 02/13/2019 5:00 EST by JAYA WASHINGTON REGISITERED_ Chart Check Powerplans Initiated/Discontinued as Appropriate : Yes All Active Orders Reviewed : Yes JAYA WASHINGTON REGISITERED_NURSE - 02/13/2019 6:10 EST Electronically signed by Lillian [facility] Conversion Pipe Installer Cerner at 07/07/2022 9:56 PM CDT documented in this encounter Plan of Treatment Not on file documented as of this encounter Visit Diagnoses Not on filedocumented in this encounter
--- OUTSIDE RECORDS SUMMARY | 2024-11-16 14:57 | XMS_ITS | Encounter Summary ---
Author Organization [employer] ([place], [place], [place], [place]) Address [address] [place] [address] Care Team Providers Care Belt Press Operator Name Role Phone Unavailable Primary Care Provider Unavailabl e Encounter Details Date Type Department Care Team (Late st Contact Info) Description 02/12/2019 Transcribed Document [facility] Radiology 1 [place] [address] Anne Peters MD [address] [place] [address] [address] [place] [id number] Social History Tobacco Use Types Packs/Day Years [...] 02/05/[address] Johan Sue neurology [facility] Chief complaint bilateral upper and lower [...] better, no new c/o, leg weakness better, katilynn steroids well 1125-pt feels well, leg weakness [...] At risk for sleep apnea / IMO [id number] / Confirmed, Active Problems (3) At risk [...] gallop, S1+ S2 No S3 or S4 [place].. Gastrointestinal: Soft, Non-tender, Non-distended, Normal bowel sounds. [...]
--- OUTSIDE RECORDS SUMMARY | 2024-11-16 14:57 | XMS_ITS | Encounter Summary ---
Author Organization [employer] ([place], [place], [place], [place]) Address [address] [place] [address] Care Team Providers Care Crop Puller Name Role Phone Unavailable Primary Care Provider Unavailabl e Encounter Details Date Type Department Care Team (Late st Contact Info) Description 02/13/2019 Transcribed Document [facility] Family Medicine [facility] [place] [address] ProviderYusuf MD [facility] [place] [address] Social History Tobacco Use Types [...] - Historical ProviderMD - 02/13/2019 4:17 PM ADMINISTRATIVE SUPPORT TECHNICIAN On Going Discharge Planning Entered On: 02/13/2019 [...] Note Narrative Progress Note : Patient chose [facility] for STR. CM notified that patient has been approved for admission. Dr. Bales in to speak with patient, family and CM. Will order diagnostic scand for tomorrw and plan on admission to [facility] on , 02/15. Historical Progress Note : [...] prefer STR. Patient's first choice [facility] be [facility] and second choice is [facility]. Referrals sent through [facility]. CM will continue to follow. Neva Cotto RN - 02/13/19 09:37:24 MICHAELA reviewed chart. Neuro consult and following, MRI Cervical Thor. and Lumbar Spine. Discussed DCP with pt including HH vs Rehab. CM Will continue to follow for d/c needs. ALECIA GOMEZ RN-Warehouseman - 02/09/19 14:52:38 CM reviewed chart. Cm [...] to follow for d/c needs. ALECIA GOMEZ, JONATAN-Warehouseman - 02/08/19 09:16:23 CM reviewed chart. RRS 38. Cm to room to met pt. Pt spouse in room. spouse stated that pt is off floor for Xray. Spouse stated that DCP is to discharge home with family. Possible hh if a need. CM will continue to follow for d/c needs. ALECIA GOMEZ RN-Warehouseman - 02/07/19 09:05:36 Neva Cotto RN - 02/13/2019 16:17 EST Electronically signed by Lillian [facility] Conversion Natural Foods Clerk Cerner at 07/07/2022 9:59 PM CDT documented in this encounter Plan of Treatment Not on file documented as of this encounter Visit Diagnoses Not on filedocumented in this encounter
--- OUTSIDE RECORDS SUMMARY | 2024-11-16 14:57 | XMS_ITS | Encounter Summary ---
Author Organization [employer] ([place], [place], [place], [place]) Address [address] [place] [address] Care Team Providers Care Capsule Filler Name Role Phone Unavailable Primary Care Provider Unavailabl e Encounter Details Date Type Department Care Team (Late st Contact Info) Description 02/12/2019 Transcribed Document [facility] [place] [address] [place] [address] ProviderYusuf MD [facility] [place] [address] Social History Tobacco Use Types [...] - Historical ProviderMD - 02/12/2019 2:00 AM SALT MANAGER Dress Operator Details Entered On: 02/12/2019 4:19 EST Performed [...]
--- OUTSIDE RECORDS SUMMARY | 2024-11-16 14:57 | XMS_ITS | Encounter Summary ---
Author Organization [employer] ([place], [place], [place], [place]) Address [address] [place] [address] Care Team Providers Care Eight Section Blower Name Role Phone Unavailable Primary Care Provider Unavailabl e Encounter Details Date Type Department Care Team (Late st Contact Info) Description 02/13/2019 Transcribed Document [facility] [place] [facility] [place] [address] ProviderYusuf MD [facility] [place] [address] Social History Tobacco Use Types [...] - Historical ProviderMD - 02/13/2019 5:04 PM SURFACE MINER Patient: FRANKY SCOTT Age: 74 Years Sex: [...] 1 Tab, Oral, Daily Electronically signed by [facility], [facility] Conversion Correctional Facility Psychiatrist Cerner at 07/07/2022 9:59 PM CDT documented in this encounter Plan of Treatment Not on file documented as of this encounter Visit Diagnoses Not on filedocumented in this encounter
--- OUTSIDE RECORDS SUMMARY | 2024-11-16 14:57 | XMS_ITS | Encounter Summary ---
Author Organization [employer] ([place], [place], [place], [place]) Address [address] [place] [address] Care Team Providers Care Belt Operator Name Role Phone Unavailable Primary Care Provider Unavailabl e Encounter Details Date Type Department Care Team (Late st Contact Info) Description 02/12/2019 Transcribed Document [facility] Radiology 1 [place] [address] Claudio Allen MD [facility] [place] [address] Social History Tobacco Use Types [...] few weeks prior to her admission at [facility], she noticed progressive weakness to the point [...] rate and rhythm. ABDOMEN: Soft and nontender. MILLER KILN DRIED SALT: Demonstrate ability to move both upper and [...] the patient were comfortable with the discussion. /[id number] Christiano Allen MD ROONEY/AQ / ROONEY / MODL /[id number] CC: MD Johan Leone MD Haider Abbas, MD Imran A Khan, MD Electronically signed by [facility], [facility] Conversion Health Outcomes Liaison Cerner at 07/07/2022 9:59 PM CDT documented in this encounter Plan of Treatment Not on file documented as of this encounter Visit Diagnoses Not on filedocumented in this encounter
--- OUTSIDE RECORDS SUMMARY | 2024-11-16 14:58 | XMS_ITS | Encounter Summary ---
Author Organization [employer] ([place], [place], [place], [place]) Address [address] [place] [address] Care Team Providers Care Silica Spray Mixer Name Role Phone Unavailable Primary Care Provider Unavailabl e Encounter Details Date Type Department Care Team (Late st Contact Info) Description 02/11/2019 Transcribed Document [facility] [place] [address] [place] [address] ProviderYusuf MD [place] [address] Social History Tobacco Use Types [...] - Historical ProviderMD - 02/11/2019 5:00 PM MOSAIC TILE MAKER Chart Check - Review Order Profile Entered On: 02/11/2019 15:30 EST Performed On: 02/11/2019 17:00 EST by Sandra Mancilla RN Chart Check Powerplans Initiated/Discontinued as Appropriate : Yes All Active Orders Reviewed : Yes Sandra Mancilla RN - 02/11/2019 15:30 EST Electronically signed by Onel Snyder Conversion Inspector Health Care Facilities Cerner at 07/07/2022 9:59 PM CDT documented in this encounter Plan of Treatment Not on file documented as of this encounter Visit Diagnoses Not on filedocumented in this encounter
--- OUTSIDE RECORDS SUMMARY | 2024-11-16 14:58 | XMS_ITS | Encounter Summary ---
Author Organization [employer] ([place], [place], [place], [place]) Address [address] [place] [address] Care Team Providers Care Anode Rebuilder Name Role Phone Unavailable Primary Care Provider Unavailabl e Encounter Details Date Type Department Care Team (Late st Contact Info) Description 02/05/2019 Transcribed Document [facility] Radiology [address] [place] [address] Anne Peters MD [address] [place] [address] [place] [id number] Social History Tobacco Use Types Packs/Day Years [...] discharge Referring physician Dr. Johan Sue neurology [facility] Chief complaint bilateral upper and [...] Q4H, PRN: Nausea heparin: 5,000 Units, SubCutaneous, [id number] hydrALAZINE: 5 mg, IV Push, Q4H, PRN: Hypertension morphine: 2 mg, IV Push, Q2H, PRN: Pain (Severe 7-10), No qualifying data available , Medications (8) Active Scheduled: (2) famotidine 20 mg tab 20 mg 1 Tab, Oral, Q12H heparin 5,000 Units, SubCutaneous, [id number] Continuous: (0) PRN: (6) acetaminophen 325 mg [...] gallop, S1+ S2 No S3 or S4 [place].. Gastrointestinal: Soft, Non-tender, Non-distended, Normal bowel sounds. [...]
--- OUTSIDE RECORDS SUMMARY | 2024-11-16 14:58 | XMS_ITS | Encounter Summary ---
Author Organization [employer] ([place], [place], [place], [place]) Address [address] [place] [address] Care Team Providers Care Car Deliverer Name Role Phone Unavailable Primary Care Provider Unavailabl e Encounter Details Date Type Department Care Team (Late st Contact Info) Description 02/14/2019 Transcribed Document [facility] [place] [place] Family Medicine [address] [place] [address] ProviderYusuf MD [facility] [place] [address] Social History Tobacco Use Types [...] - Historical ProviderMD - 02/14/2019 5:00 AM ELECTRIC ORGAN CHECKER Chart Check - Review Order Profile Entered On: 02/14/2019 6:41 EST Performed On: 02/14/2019 5:00 EST by JAYA WASHINGTON REGISITERED_ Chart Check Powerplans Initiated/Discontinued as Appropriate : Yes All Active Orders Reviewed : Yes JAYA WASHINGTON REGISITERED_ - 02/14/2019 6:41 EST Electronically signed by Lillian [facility] Conversion Petroleum Transport Driver Cerner at 07/07/2022 10:01 PM CDT documented in this encounter Plan of Treatment Not on file documented as of this encounter Visit Diagnoses Not on filedocumented in this encounter
--- OUTSIDE RECORDS SUMMARY | 2024-11-16 14:58 | XMS_ITS | Encounter Summary ---
Author Organization [employer] ([place], [place], [place], [place]) Address [address] [place] [address] Care Team Providers Care Mobile Electronics Installer Name Role Phone Unavailable Primary Care Provider Unavailabl e Encounter Details Date Type Department Care Team (Late Contact Info) Description 02/12/2019 Transcribed Document [facility] [place] [facility] [place] [address] ProviderYusuf MD [facility] [place] [address] Social History Tobacco Use Types [...] - Historical ProviderMD - 02/12/2019 5:20 PM SALES ASSISTANT Patient: FRANKY SCOTT Age: 74 Years [...] Tab, Oral, Daily Electronically signed by Lillian, [facility] Conversion Java Security Engineer Cerner at 07/07/2022 9:51 PM CDT documented in this encounter Plan of Treatment Not on file documented as of this encounter Visit Diagnoses Not on filedocumented in this encounter
--- OUTSIDE RECORDS SUMMARY | 2024-11-16 14:58 | XMS_ITS | Encounter Summary ---
Author Organization [employer] ([place], [place], [place], [place]) Address [address] [place] [address] Care Team Providers Care Care Tech Name Role Phone Unavailable Primary Care Provider Unavailabl e Encounter Details Date Type Department Care Team (Late st Contact Info) Description 02/12/2019 Transcribed Document [facility] [place] Family Medicine [facility] [place] [address] ProviderYusuf [place] [address] Social History Tobacco Use Types [...] - Historical ProviderMD - 02/12/2019 8:56 AM PROFILE TRIMMER Consult Phone Call Documentation Entered On: 02/12/2019 9:20 EST Performed On: 02/12/2019 8:56 EST by Gloria Acosta [facility] Phone Call for Consults Consult Phone Call/Page Attempt : First call Gloria Acosta [facility] - 02/12/2019 9:20 EST Consult Reason : Cervical Myopathy Physician Requesting Consult : BASHIR RAYMOND MD-INT Provider Service Notified Name : Other: Rheumatology Date and Time Call Returned : 02/12/2019 8:56 EST Gloria Acosta [facility] - 02/12/2019 9:17 EST Electronically signed by Lillian [facility] Conversion Manager Gallery Cerner at 07/07/2022 9:51 PM CDT documented in this encounter Plan of Treatment Not on file documented as of this encounter Visit Diagnoses Not on filedocumented in this encounter
--- OUTSIDE RECORDS SUMMARY | 2024-11-16 14:58 | XMS_ITS | Encounter Summary ---
Author Organization [employer] ([place], [place], [place], [place]) Address [address] [place] [address] Care Team Providers Care Band Teacher Name Role Phone Unavailable Primary Care Provider Unavailabl e Encounter Details Date Type Department Care Team (Late st Contact Info) Description 02/11/2019 Transcribed Document [facility] [place] Medicine [facility] [address] ProviderYusuf MD [facility] [place] [address] Social History Tobacco Use Types [...] - Historical ProviderMD - 02/11/2019 10:44 AM FORENSIC LOCKSMITH Patient: FRANKY DEWITT Age: 74 Years Sex: [...]
--- OUTSIDE RECORDS SUMMARY | 2024-11-16 14:58 | XMS_ITS | Encounter Summary ---
Author Organization [employer] ([place], [place], [place], [place]) Address [address] [place] [address] Care Team Providers Care Scale Expert Name Role Phone Unavailable Primary Care Provider Unavailabl e Encounter Details Date Type Department Care Team (Late st Contact Info) Description 02/14/2019 Transcribed Document [facility] [place] [facility] [place] [address] ProviderYusuf MD [facility] [place] [address] Social History Tobacco Use Types [...] - Historical ProviderMD - 02/14/2019 11:30 AM DISPLAY SCREEN FABRICATOR Attempt to Treat, OT Entered On: 02/14/2019 [...]
--- OUTSIDE RECORDS SUMMARY | 2024-11-16 14:58 | XMS_ITS | Clinical Summary ---
Author Organization Healthcare Address [address] [place] [address] Care Team Providers Care Crusher Loader Equipment Operator Name Role Phone Jensen Santiago MD Primary Care Provider [phone] Allergies Active Allergy Reactions Criticality Noted Date [...] Screening 1945 [facility]-Medicare Annual Wellness (AWV) 1945 [facility]-Infant/Child/Adol SDOH Screenings 1945 [facility]- SDOH Screenings 1965 [facility]-Adult SDOH Screenings 1965 [facility]-Zoster Vaccines (1 of 2) 1997 [facility]-RSV Vaccine: 60+ Years or (1 - 1-dose 75+ series) 2022 [id number]-37 Vaccine (2023- season) 2023 12/16/2021, 07/31/2021, 01/28/2021, [...] age to complete this topic Insurance MEDICARE [facility] Care Teams Crusher Loader Equipment Operator Relationship Specialty Start Date End Date Jensen Santiago MD [address] [place] [id number] PCP - General 12/11/20
--- OUTSIDE RECORDS SUMMARY | 2024-11-16 14:58 | XMS_ITS | Encounter Summary ---
Author Organization [employer] ([place], [place], [place], [place]) Address [address] [place] [address] Care Team Providers Care Safety Lamp Keeper Name Role Phone Unavailable Primary Care Provider Unavailabl e Encounter Details Date Type Department Care Team (Late st Contact Info) Description 02/15/2019 Transcribed Document [facility] [place] [address] ProviderYusuf [place] [address] Social History Tobacco Use Types [...] - Yusuf ProviderMD - 02/15/2019 10:58 AM DISPUTE RESOLUTION SPECIALIST Patient Education Materials Follows: Transverse Myelitis Transverse [...] You may need to see a nervous information systems director (neurologist) to have tests, which may include: [...] Follow these instructions at home: ??? Take sxkb-gtg-ivmrprz and prescription medicines only as told by [...] 02/25/2003 Document Revised: 11/07/2016 Document Reviewed: 08/13/2015 [employer] Interactive Patient Education ? 2019 [employer]. Neurology Spinal Cord Infarction A spinal cord [...] ? Manage bowel and bladder problems. ? Nutrioso with mental health problems. ? Manage pain. [...] 02/25/2003 Document Revised: 11/02/2016 Document Reviewed: 05/21/2014 [employer] Interactive Patient Education ? 2019 [employer] Weakness Weakness is a lack of [...] sleep you need each night. ??? Take cwwb-bha-pjijsjx and prescription medicines only as told by [...] about working with a physical therapist or physical trainer to help you get stronger. ??? [...] 02/17/2009 Document Revised: 04/01/2016 Document Reviewed: 12/26/2015 [employer] Interactive Patient Education ? 2019 [employer]. Obstetrics and Gynecology Near-Syncope Near-syncope is when [...] This can help with dizziness. ??? Take ecpx-ayc-polpxyj and prescription medicines only as told by [...] 11/19/2015 Elsevier Interactive Patient Education ? 2019 [employer] Electronically signed by Onel Snyder Conversion General Utility Machine Operator Cerner at 07/07/2022 9:48 PM CDT documented in this encounter Plan of Treatment Not on file documented as of this encounter Visit Diagnoses Not on filedocumented in this encounter
--- OUTSIDE RECORDS SUMMARY | 2024-11-16 14:58 | XMS_ITS | Encounter Summary ---
Author Organization [employer] ([place], [place], [place], [place]) Address [address] [place] [address] Care Team Providers Care Weaver Hand Name Role Phone Unavailable Primary Care Provider Unavailabl e Encounter Details Date Type Department Care Team (Late st Contact Info) Description 02/10/2019 Transcribed Document [facility] [place] Family Medicine [address] [place] [address] ProviderYusuf MD [facility] [place] [address] Social History Tobacco Use Types [...] - Historical ProviderMD - 02/10/2019 5:00 PM CIRCULATION MAN Chart Check - Review Order Profile Entered [...]
--- OUTSIDE RECORDS SUMMARY | 2024-11-16 14:58 | XMS_ITS | Clinical Summary ---
Author Organization [facility] Address [address] [place] [address] Care Team Providers Care English Language Learner Teacher Name Role Phone Jensen Santiago MD Primary Care Provider [phone] Allergies Active Allergy Reactions Criticality Noted Date Comments Lisinopril Hives Low 03/28/2019 Penicillins Rash Low 03/28/2019 Tramadol Rash Low 10/17/2019 Medications potassium chloride (K-DUR,KLOR-CON) 10 MEQ CR tablet Take 10 mEq by mouth Daily. 9 Active losartan (COZAAR) 25 MG tablet Take 1 tablet by mouth Daily. Active Biotin 29190 MCG tablet Take 1,000 mcg by mouth Daily. Active [place]-3 Fatty Acids (FISH OIL) 500 MG capsule [...] TO AFFECTED AREA TWICE DAILY 2 Active [place]-3 Fatty Acids (fish oil) 1000 MG capsule [...] 06/29/2019, 04/22 Medical Devices Implanted Type Area Heavy Lift Rigger Device Identifier Shelf Expiration Date Model / Serial / Lot Sys Liq Emb Lowgap 18 Evoh/6pct Vl1.5ml - [id number] Implanted:Qty: 1 on 04/06/2019 by Laurent Kelsey MD at [facility] Implant [place]3 [place] [employer] [id number] / / Insurance MEDICARE A & B [employer] [facility] Advance Directives Documents on File Type Date Recorded Patient Doll Surgeon Expl anation LIVING WILL - SCAN 03/29/2019 [...] Scott Spouse Health Care Surrogate Care Teams English Language Learner Teacher Relationship Specialty Start Date End Date Jensen Santiago MD [address] [place] [address] [place] [id number] PCP - General Family Medicine 03/26/19
--- OUTSIDE RECORDS SUMMARY | 2024-11-16 14:58 | XMS_ITS | Encounter Summary ---
Author Organization [employer] ([place], [place], [place], [place]) Address [address] [place] [address] Care Team Providers Care Wrap Turner Name Role Phone Unavailable Primary Care Provider Unavailabl e Encounter Details Date Type Department Care Team (Late st Contact Info) Description 02/10/2019 Transcribed Document [facility] Radiology 1 [place] [address] Anne Peters MD [address] [place] [address] [address] [id number] Social History Tobacco Use Types Packs/Day Years [...] discharge Referring physician Dr. Johan Sue neurology [facility] Chief complaint bilateral upper and [...] pathology. Patient was referred To neurologist Dr. Jhoan Conway. She was seen in the office [...] At risk for sleep apnea / IMO [id number] / Confirmed, Active Problems (3) At risk [...] gallop, S1+ S2 No S3 or S4 [place].. Gastrointestinal: Soft, Non-tender, Non-distended, Normal bowel sounds. [...]
--- OUTSIDE RECORDS SUMMARY | 2024-11-16 14:58 | XMS_ITS | Encounter Summary ---
Author Organization [employer] ([place], [place], [place], [place]) Address [address] [place] [address] Care Team Providers Care Insurance Commissioner Name Role Phone Unavailable Primary Care Provider Unavailabl e Encounter Details Date Type Department Care Team (Late st Contact Info) Description 02/14/2019 Transcribed Document [facility] [place] Family Medicine [facility] [place] [address] ProviderYusuf MD [facility] [place] [address] Social History Tobacco Use Types [...] - Historical ProviderMD - 02/14/2019 5:00 PM FORM TAMPER OPERATOR Chart Check - Review Order Profile [...]
--- OUTSIDE RECORDS SUMMARY | 2024-11-16 14:58 | XMS_ITS | Encounter Summary ---
Author Organization [employer] ([place], [place], [place], [place]) Address [address] [place] [address] Care Team Providers Care Fabric Pattern Grader Name Role Phone Unavailable Primary Care Provider Unavailabl e Encounter Details Date Type Department Care Team (Late st Contact Info) Description 02/12/2019 Transcribed Document [facility] [place] Family Medicine [address] [place] [address] ProviderYusuf MD [facility] [place] [address] Social History Tobacco Use Types [...] - Historical ProviderMD - 02/12/2019 5:00 AM SANDBLASTER PAINT SPRAYER Chart Check - Review Order Profile Entered On: 02/12/2019 7:02 EST Performed On: 02/12/2019 5:00 EST by JAYA WASHINGTON REGISITERED_ Chart Check Powerplans Initiated/Discontinued as Appropriate : Yes All Active Orders Reviewed : Yes JAYA WASHINGTON REGISITERED_ - 02/12/2019 7:02 EST Electronically signed by Lillian [facility] Conversion Personnel Security Assistant Cerner at 07/07/2022 9:55 PM CDT documented in this encounter Plan of Treatment Not on file documented as of this encounter Visit Diagnoses Not on filedocumented in this encounter
--- OUTSIDE RECORDS SUMMARY | 2024-11-16 14:58 | XMS_ITS | Encounter Summary ---
Author Organization [employer] ([place], [place], [place], [place]) Address [address] [place] [address] Care Team Providers Care Account Technician Name Role Phone Unavailable Primary Care Provider Unavailabl e Encounter Details Date Type Department Care Team (Late st Contact Info) Description 02/09/2019 Transcribed Document [facility] [place] Medicine [facility] [place] [address] ProviderYusuf MD [facility] [place] [address] Social History Tobacco Use Types [...] - Historical ProviderMD - 02/09/2019 5:00 PM BOOTH OPERATOR Chart Check - Review Order Profile Entered On: 02/09/2019 15:20 EST Performed On: 02/09/2019 17:00 EST by Yeimi Olmos RN Chart Check Powerplans Initiated/Discontinued as Appropriate : Yes All Active Orders Reviewed : Yes Yeimi Olmos RN - 02/09/2019 15:20 EST Electronically signed by Lillian [facility] Conversion Catalog Specialist Cerner at 07/07/2022 9:50 PM CDT documented in this encounter Plan of Treatment Not on file documented as of this encounter Visit Diagnoses Not on filedocumented in this encounter
--- OUTSIDE RECORDS SUMMARY | 2024-11-16 14:58 | XMS_ITS | Encounter Summary ---
Author Organization [employer] ([place], [place], [place], [place]) Address [address] [place] [address] Care Team Providers Care Production Technologist Name Role Phone Unavailable Primary Care Provider Unavailabl e Encounter Details Date Type Department Care Team (Late st Contact Info) Description 02/14/2019 Transcribed Document [facility] Radiology [address] [place] [address] Zack Jha MD [address] [place] [address] [address] [place] [id number] Social History Tobacco Use Types Packs/Day Years [...] 02/05/[address] Johan Sue neurology [facility] Chief complaint bilateral upper and [...] gallop, S1+ S2 No S3 or S4 [place].. Gastrointestinal: Soft, Non-tender, Non-distended, Normal bowel sounds. [...] is ongoing. DC plan: Likely tomorrow to [facility]. documented in this encounter Plan of Treatment Not on file documented as of this encounter Visit Diagnoses Not on filedocumented in this encounter
--- OUTSIDE RECORDS SUMMARY | 2024-11-16 14:58 | XMS_ITS | Encounter Summary ---
Author Organization [employer] ([place], [place], [place], [place]) Address [address] [place] [address] Care Team Providers Care Senior Controls Technician Name Role Phone Unavailable Primary Care Provider Unavailabl e Encounter Details Date Type Department Care Team (Late st Contact Info) Description 02/10/2019 Transcribed Document [facility] [place] Family Medicine [address] [place] [address] [place] [address] Social History Tobacco Use Types [...] - Historical ProviderMD - 02/10/2019 5:00 AM PATTERNMAKER METAL Chart Check - Review Order Profile Entered [...]
--- OUTSIDE RECORDS SUMMARY | 2024-11-16 14:58 | XMS_ITS | Encounter Summary ---
Author Organization [employer] ([place], [place], [place], [place]) Address [address] [place] [address] Care Team Providers Care Flow Trader Name Role Phone Unavailable Primary Care Provider Unavailabl e Encounter Details Date Type Department Care Team (Late st Contact Info) Description 02/09/2019 Transcribed Document [facility] Radiology 1 [place] [address] Anne Peters MD [address] [place] [address] [address] [place] [id number] Social History Tobacco Use Types Packs/Day Years [...] discharge Referring physician Dr. Johan Sue neurology [facility] Chief complaint bilateral upper and lower extremity [...] At risk for sleep apnea / O [id number] / Confirmed, Active Problems (3) At risk [...] gallop, S1+ S2 No S3 or S4 [place].. Gastrointestinal: Soft, Non-tender, Non-distended, Normal bowel sounds. [...]
--- OUTSIDE RECORDS SUMMARY | 2024-11-16 14:58 | XMS_ITS | Encounter Summary ---
Author Organization [employer] ([place], [place], [place], [place]) Address [address] [place] [address] Care Team Providers Care Refrigerated Company Driver Name Role Phone Unavailable Primary Care Provider Unavailabl e Encounter Details Date Type Department Care Team (Late st Contact Info) Description 02/12/2019 Transcribed Document [facility] [place] [facility] [place] [address] ProviderYusuf MD [facility] [place] [address] Social History Tobacco Use Types [...] - Historical ProviderMD - 02/12/2019 9:00 AM LEARNING ENGINEER Pain Assessment Entered On: 02/12/2019 11:07 EST [...]
--- OUTSIDE RECORDS SUMMARY | 2024-11-16 14:58 | XMS_ITS | Encounter Summary ---
Author Organization [employer] ([place], [place], [place], [place]) Address [address] [place] [address] Care Team Providers Care Training Designer Name Role Phone Unavailable Primary Care Provider Unavailabl e Encounter Details Date Type Department Care Team (Late st Contact Info) Description 02/09/2019 Transcribed Document [facility] [place] [facility] [place] [address] ProviderYusuf MD [facility] [place] [address] Social History Tobacco Use Types [...] - Historical ProviderMD - 02/09/2019 5:00 AM MANAGER STERILE Chart Check - Review Order Profile Entered [...]
--- OUTSIDE RECORDS SUMMARY | 2024-11-16 14:58 | XMS_ITS | Encounter Summary ---
Author Organization [employer] ([place], [place], [place], [place]) Address [address] [place] [address] Care Team Providers Care Latex Dipper Name Role Phone Unavailable Primary Care Provider Unavailabl e Encounter Details Date Type Department Care Team (Late st Contact Info) Description 02/14/2019 Transcribed Document [facility] [place] [facility] [place] [address] ProviderYusuf [place] [address] Social History Tobacco Use Types [...] - Historical ProviderMD - 02/14/2019 2:00 AM ULTRASOUND TECHNOLOGIST Manager Hris Details Entered On: 02/14/2019 6:40 EST Performed [...]
--- OUTSIDE RECORDS SUMMARY | 2024-11-16 14:58 | XMS_ITS | Encounter Summary ---
Author Organization [employer] ([place], [place], [place], [place]) Address [address] [place] [address] Care Team Providers Care Medical Director/Head Team Physician Name Role Phone Unavailable Primary Care Provider Unavailabl e Encounter Details Date Type Department Care Team (Late st Contact Info) Description 02/10/2019 Transcribed Document [facility] [place] [facility] [place] [address] ProviderYusuf MD [facility] [place] [address] Social History Tobacco Use Types [...] - Historical ProviderMD - 02/10/2019 5:38 PM HEALTH EDITOR Patient: FRANKY DEWITT Age: 74 Years Sex: [...] counseling. Electronically signed by Onel Snyder Conversion Software Applications Architect Cerner at 07/07/2022 10:01 PM CDT documented in this encounter Plan of Treatment Not on file documented as of this encounter Visit Diagnoses Not on filedocumented in this encounter
--- OUTSIDE RECORDS SUMMARY | 2024-11-16 14:58 | XMS_ITS | Encounter Summary ---
Author Organization [employer] ([place], [place], [place], [place]) Address [address] [place] [address] Care Team Providers Care Energy Audit Advisor Name Role Phone Unavailable Primary Care Provider Unavailabl e Encounter Details Date Type Department Care Team (Late st Contact Info) Description 02/10/2019 Transcribed Document [facility] [place] [address] ProviderYusuf [place] [address] Social History Tobacco Use Types [...] - Historical ProviderMD - 02/10/2019 2:00 AM MANAGER TRANSMISSION Internal Control Manager Details Entered On: 02/10/2019 2:04 EST Performed [...]
--- OUTSIDE RECORDS SUMMARY | 2024-11-16 14:58 | XMS_ITS | Encounter Summary ---
Author Organization [employer] ([place], [place], [place], [place]) Address [address] [place] [address] Care Team Providers Care Retail Management Keyholder Name Role Phone Unavailable Primary Care Provider Unavailabl e Encounter Details Date Type Department Care Team (Late st Contact Info) Description 02/12/2019 Transcribed Document [facility] [place] [address] [place] [address] ProviderYusuf MD [place] [address] Social History Tobacco Use Types [...] - Historical ProviderMD - 02/12/2019 9:00 AM BENEFITS SALES CONSULTANT Consult Phone Call Documentation Entered On: 02/12/2019 9:21 EST Performed On: 02/12/2019 9:00 EST by Gloria Acosta [facility] Phone Call for Consults Consult Phone Call/Page Attempt : Other: Md called Consult Reason : Thrombocytosis Physician Requesting Consult : ABSHIR RAYMOND MD-INT Physician Requested for Consult : EMANUEL MITCHELL MD-RHE Provider Service Notified Name : Other: Oncology Date and Time Call Returned : 02/12/2019 8:56 EST Gloria Acosta [facility] - 02/12/2019 9:20 EST Electronically signed by Lillian [facility] Conversion Farm Demonstrator Cerner at 07/07/2022 9:48 PM CDT documented in this encounter Plan of Treatment Not on file documented as of this encounter Visit Diagnoses Not on filedocumented in this encounter
--- OUTSIDE RECORDS SUMMARY | 2024-11-16 14:58 | XMS_ITS | Encounter Summary ---
Author Organization [employer] ([place], [place], [place], [place]) Address [address] [place] [address] Care Team Providers Care Grader Operator Name Role Phone Unavailable Primary Care Provider Unavailabl e Encounter Details Date Type Department Care Team (Late st Contact Info) Description 02/05/2019 Transcribed Document [facility] [place] Family Medicine [address] [place] [address] ProviderYusuf MD [address] [place] [address] Social History Tobacco Use Types [...] - Historical ProviderMD - 02/05/2019 10:53 AM MEDICAL DOCTOR SPECIAL SERVICES SUPERVISOR Attempt to Treat Entered On: 02/05/2019 10:54 [...]
--- OUTSIDE RECORDS SUMMARY | 2024-11-16 14:58 | XMS_ITS | Encounter Summary ---
Author Organization [employer] ([place], [place], [place], [place]) Address [address] [place] [address] Care Team Providers Care Die Finisher Forging Name Role Phone Unavailable Primary Care Provider Unavailabl e Encounter Details Date Type Department Care Team (Late st Contact Info) Description 02/11/2019 Transcribed Document [facility] [place] Medicine [facility] [place] [address] ProviderYusuf MD [facility] [place] [address] Social History Tobacco Use Types [...] - Historical ProviderMD - 02/11/2019 1:30 PM TEST ENGINEER Pain Assessment Entered On: 02/11/2019 15:30 EST [...]
--- OUTSIDE RECORDS SUMMARY | 2024-11-16 14:58 | XMS_ITS | Encounter Summary ---
Author Organization [employer] ([place], [place], [place], [place]) Address [address] [place] [address] Care Team Providers Care Checker Loader Name Role Phone Unavailable Primary Care Provider Unavailabl e Encounter Details Date Type Department Care Team (Late st Contact Info) Description 02/11/2019 Transcribed Document [facility] Radiology [address] [place] [address] Anne Peters MD [address] [place] [address] [address] [place] [id number] Social History Tobacco Use Types Packs/Day Years [...] physician Dr. Johan Sue neurology [facility] Chief complaint bilateral upper and lower [...] At risk for sleep apnea / IMO [id number] / Confirmed, Active Problems (3) At risk [...]
--- OUTSIDE RECORDS SUMMARY | 2024-11-16 14:58 | XMS_ITS | Encounter Summary ---
Author Organization [employer] ([place], [place], [place], [place]) Address [address] [place] [address] Care Team Providers Care Cement Handler Name Role Phone Unavailable Primary Care Provider Unavailabl e Encounter Details Date Type Department Care Team (Late st Contact Info) Description 02/09/2019 Transcribed Document [facility] [place] [facility] [place] [address] ProviderYusuf MD [facility] [place] [address] Social History Tobacco Use Types [...] - Historical ProviderMD - 02/09/2019 2:51 PM CLOTH SHEARER On Going Discharge Planning Entered On: 02/09/2019 14:52 EST Performed On: 02/09/2019 14:51 EST by ALECIA GOMEZ RN-Needle Loom OperatorPrivate Household Worker Progress Note Discharge Arrangements : Patient Post-Acute [...] Meeting Medical Necessity : Yes ALECIA GOMEZ RN-Needle Loom Operator - 02/09/2019 14:51 EST Narrative Progress Note [...] to follow for d/c needs. ALECIA GOMEZ RN-Needle Loom Operator - 02/08/19 09:16:23 CM reviewed chart. RRS 38. Cm to room to met pt. Pt spouse in room. spouse stated that pt is off floor for Xray. Spouse stated that DCP is to discharge home with family. Possible hh if a need. CM will continue to follow for d/c needs. ALECIA GOMEZ RN-Needle Loom Operator - 02/07/19 09:05:36 ALECIA GOMEZ RN-Needle Loom Operator - 02/09/2019 14:51 EST documented in this encounter Plan of Treatment Not on file documented as of this encounter Visit Diagnoses Not on filedocumented in this encounter
--- OUTSIDE RECORDS SUMMARY | 2024-11-16 14:59 | XMS_ITS | Encounter Summary ---
Author Organization [employer] ([place], [place], [place], [place]) Address [address] [place] [address] Care Team Providers Care Transportation Design Engineer Name Role Phone Unavailable Primary Care Provider Unavailabl e Encounter Details Date Type Department Care Team (Late st Contact Info) Description 02/08/2019 Transcribed Document [facility] [place] [address] [place] [address] ProviderYusuf MD [facility] [place] [address] Social History Tobacco Use [...] - Historical ProviderMD - 02/08/2019 5:00 PM CRYPTOLOGIC SUPPORT SPECIALIST Chart Check - Review Order Profile Entered [...]
--- OUTSIDE RECORDS SUMMARY | 2024-11-16 14:59 | XMS_ITS | Encounter Summary ---
Author Organization [employer] ([place], [place], [place], [place]) Address [address] [place] [address] Care Team Providers Care Box Car Washer Name Role Phone Unavailable Primary Care Provider Unavailabl e Encounter Details Date Type Department Care Team (Late st Contact Info) Description 02/15/2019 Transcribed Document [facility] [place] [facility] [place] [address] ProviderYusuf MD [facility] [place] [address] Social History Tobacco Use Types [...] - Yusuf ProviderMD - 02/15/2019 1:24 PM RESTAURANT LEAD [facility] [place], [place] [id number] FRANKY DEWITT :1945 Visit Time:02/05/2019 Your Visit [...] next Instructions From Your Care Team Rehabilitation: [facility] spinal cord unit/ / Discharge Summary: [phone] faxed [facility] Transportation: Car with family Follow up with Dr. Sue in 2 weeks. Follow up with Dr. Allen as recommended in 2-3 weeks. Discharge Follow Up Instructions: Follow-Up Appointments Follow Up with BRISEIDA SUE MD-GIBSON When Within 1 month Where: [address] [facility] [place] [address]- Medications What How Much When Instructions Next [...] ? Manage bowel and bladder problems. ? Narvon with mental health problems. ? Manage pain. [...] 02/25/2003 Document Revised: 11/02/2016 Document Reviewed: 05/21/2014 [employer] Patient Education ?? 2019 [employer] Near-Syncope Near-syncope is when you suddenly [...] This can help with dizziness. ??? Take dftn-mhb-nrhnzso and prescription medicines only as told by [...] 08/23/2008 Document Revised: 04/20/2017 Document Reviewed: 11/19/2015 [employer] Interactive Patient Education ?? 2019 [employer] Weakness Weakness is a lack of [...] sleep you need each night. ??? Take zkzo-orr-gagjtrc and prescription medicines only as told by [...] about working with a physical therapist or certified personal trainer to help you get stronger. ??? [...] 02/17/2009 Document Revised: 04/01/2016 Document Reviewed: 12/26/2015 [employer] Patient Education ?? 2019 [employer]. Transverse Myelitis Transverse myelitis is a condition [...] You may need to see a nervous sewer system supervisor (neurologist) to have tests, which may include: [...] Follow these instructions at home: ??? Take girl-adc-mvhnvgf and prescription medicines only as told by [...] 02/25/2003 Document Revised: 11/07/2016 Document Reviewed: 08/13/2015 [employer] Patient Education ?? 2019 [employer]. prednisone (PRED lucas zelda Wallsos What is [...] may report side effects to FDA at 4-573-EJI-6209. What other drugs will affect prednisone? Sometimes [...] may affect prednisone. This includes prescription and zpka-zpg-yrdfway medicines, vitamins, and herbal products. Not all [...] to ensure that the information provided by [employer]. ('[employer]') is accurate, up-to-date, and complete, but no guarantee is made to that effect. Drug information contained herein may be time sensitive. [employer] information has been compiled for use by healthcare practitioners and consumers in the [place] and therefore [employer] does not warrant that uses outside of the [place] are appropriate, unless specifically indicated otherwise. [employer] drug information does not endorse drugs, diagnose patients or recommend therapy. [employer] drug information is an informational resource designed [...] effective or appropriate for any given patient. [facility] does not assume any responsibility for any aspect of healthcare administered with the aid of information [facility] provides. The information contained herein is not intended to cover all possible uses, directions, precautions, warnings, drug interactions, allergic reactions, or adverse effects. If you have questions about the drugs you are taking, check with your doctor, nurse or pharmacist. Copyright 2904-8468 [facility] [employer]. Version: 10.. Revision Date: 06/15/2018. Emergency Awareness [...] Assistance with quitting is available by contacting 0-248-XPMF-NOW. This is a free resource providing counseling, [...] range between ( 0.0 and 7.0 ) Storey #: 0.75 K/uL -- Normal range between ( 0.16 and 1.00 ) Eos #: 0.08 x10(3)/uL -- Normal range between ( 0.00 and 0.80 ) Storey %: 8.5 % -- Normal range between [...] RBC Morphology: Normal ANC #: 3 K/uL Storey Percent Man: 9 % -- Normal range [...] ) Urine Bilirubin Dipstick: Negative Urine Specific [place]: 1.020 -- Normal range between ( 1.005 [...] was given the opportunity to ask questions. Patient/Furniture Finisher Helper Name: Patient/Furniture Finisher Helper Signature: Relationship to Patient: Clinician/Hospital Furniture Finisher Helper Signature: Date: documented in this encounter Plan of Treatment Not on file documented as of this encounter Visit Diagnoses Not on filedocumented in this encounter
--- OUTSIDE RECORDS SUMMARY | 2024-11-16 14:59 | XMS_ITS | Encounter Summary ---
Author Organization [employer] ([place], [place], [place], [place]) Address [address] [place] [address] Care Team Providers Care Geosciences Faculty Member Name Role Phone Unavailable Primary Care Provider Unavailabl e Encounter Details Date Type Department Care Team (Late st Contact Info) Description 02/07/2019 Transcribed Document [facility] [place] Family Medicine [address] [place] [address] ProviderYusuf MD [facility] [place] [address] Social History Tobacco Use Types [...] - Historical ProviderMD - 02/07/2019 5:00 PM BAR STAFF Chart Check - Review Order Profile Entered [...]
--- OUTSIDE RECORDS SUMMARY | 2024-11-16 14:59 | XMS_ITS | Encounter Summary ---
Author Organization [employer] ([place], [place], [place], [place]) Address [address] [place] [address] Care Team Providers Care Critical Care Physician Name Role Phone Unavailable Primary Care Provider Unavailabl e Encounter Details Date Type Department Care Team (Late st Contact Info) Description 02/07/2019 Transcribed Document [facility] [place] [facility] [place] [address] ProviderYusuf MD [address] [place] [address] Social History Tobacco Use Types [...] - Historical ProviderMD - 02/07/2019 12:08 PM FIXTURE DESIGNER Patient: FRANKY SCOTT Age: 74 Years Sex: [...]
--- OUTSIDE RECORDS SUMMARY | 2024-11-16 14:59 | XMS_ITS | Encounter Summary ---
Author Organization [employer] ([place], [place], [place], [place]) Address [address] [place] [address] Care Team Providers Care Electromedical Service Engineer Name Role Phone Unavailable Primary Care Provider Unavailabl e Encounter Details Date Type Department Care Team (Late st Contact Info) Description 02/15/2019 Transcribed Document [facility] Radiology [address] [place] [address] Zack Jha MD [address] [place] [address] [address] [place] [id number] Social History Tobacco Use Types Packs/Day Years [...] 02/05/2019 Date of discharge: 02/15/2019 Discharge facilitys [facility] Full code at the time of discharge Referring physician Dr. Johan Sue neurology [facility] Chief complaint bilateral upper and lower [...] gallop, S1+ S2 No S3 or S4 [place].. Gastrointestinal: Soft, Non-tender, Non-distended, Normal bowel sounds. [...] (FEB 05) Radiology Results (Last 48 hours) [id number] -- 02/05/2019 10:21 CT Abdomen Pelvis WO [...] per history. DC Instructions 1- DC to [facility] today 2- Follow with neurology Dr. [...] minutes Cc DC summary to: PCP, neurology [facility], neurology [facility], rheumatology Dr. Allen, documented in this encounter Plan of Treatment Not on file documented as of this encounter Visit Diagnoses Not on filedocumented in this encounter
--- OUTSIDE RECORDS SUMMARY | 2024-11-16 14:59 | XMS_ITS | Encounter Summary ---
Author Organization [employer] ([place], [place], [place], [place]) Address [address] [place] [address] Care Team Providers Care Utilization Management Manager Name Role Phone Unavailable Primary Care Provider Unavailabl e Encounter Details Date Type Department Care Team (Late st Contact Info) Description 02/07/2019 Transcribed Document [facility] [place] Medicine [address] [place] [address] ProviderYusuf MD [facility] [place] [address] Social History Tobacco Use [...] - Historical ProviderMD - 02/07/2019 7:58 AM AIR TRAFFIC CONTROL SPECIALIST CENTER Spiritual Care Short Form Entered On: 02/07/2019 [...]
--- OUTSIDE RECORDS SUMMARY | 2024-11-16 14:59 | XMS_ITS | Encounter Summary ---
Author Organization [employer] ([place], [place], [place], [place]) Address [address] [place] [address] Care Team Providers Care Cost Accountant Name Role Phone Unavailable Primary Care Provider Unavailabl e Encounter Details Date Type Department Care Team (Late st Contact Info) Description 02/15/2019 Transcribed Document [facility] [place] [address] [place] [address] ProviderYusuf [place] [address] Social History Tobacco Use Types [...] - Historical ProviderMD - 02/15/2019 10:46 AM DEPUTY CHIEF SHERIFF Stroke/Warfarin Instructions Entered On: 02/15/2019 10:46 EST [...]
--- OUTSIDE RECORDS SUMMARY | 2024-11-16 14:59 | XMS_ITS | Encounter Summary ---
Author Organization [employer] ([place], [place], [place], [place]) Address [address] [place] [address] Care Team Providers Care Top Bottom Attaching Machine Operator Name Role Phone Unavailable Primary Care Provider Unavailabl e Encounter Details Date Type Department Care Team (Late st Contact Info) Description 02/15/2019 Transcribed Document [facility] [place] [address] [place] [address] ProviderYusuf MD [facility] [place] [address] Social History Tobacco [...] - Historical ProviderMD - 02/15/2019 5:00 AM VP CLINICAL Chart Check - Review Order Profile Entered On: 02/15/2019 6:55 EST Performed On: 02/15/2019 5:00 EST by Esther Cheek RN Chart Check All Active Orders Reviewed : Yes Esther Cheek RN - 02/15/2019 6:55 EST Electronically signed by Lillian Freeman [facility] Conversion Board Of Directors Cerner at 07/07/2022 9:50 PM CDT documented in this encounter Plan of Treatment Not on file documented as of this encounter Visit Diagnoses Not on filedocumented in this encounter
--- OUTSIDE RECORDS SUMMARY | 2024-11-16 14:59 | XMS_ITS | Referral Summary ---
Author Organization [employer] ([place], [place], [place], [place]) Address [address] [place] [address] Care Team Providers Care Manager Search Engine Name Role Phone Unavailable Primary Care Provider [...]
--- OUTSIDE RECORDS SUMMARY | 2024-11-16 14:59 | XMS_ITS | Encounter Summary ---
Author Organization [employer] ([place], [place], [place], [place]) Address [address] [place] [address] Care Team Providers Care Frame Aligner Name Role Phone Unavailable Primary Care Provider Unavailabl e Encounter Details Date Type Department Care Team (Late st Contact Info) Description 02/07/2019 Transcribed Document [facility] [place] Family Medicine [facility] [place] [address] ProviderYusuf MD [facility] [place] [address] Social History Tobacco Use Types [...] - Yusuf ProviderMD - 02/07/2019 9:04 AM SOUND CUTTER On Going Discharge Planning Entered On: 02/07/2019 9:05 EST Performed On: 02/07/2019 9:04 EST by ALECIA GOMEZ RN-TapemanBehavioral Modification Assistant Progress Note Discharge Arrangements : Patient Post-Acute [...] Meeting Medical Necessity : Yes ALECIA GOMEZ RN-Tapeman - 02/07/2019 9:04 EST Narrative Progress Note Narrative Progress Note : CM reviewed chart. RRS 38. Cm to room to met pt. Pt spouse in room. spouse stated that pt is off floor for Xray. Spouse stated that DCP is to discharge home with family. Possible hh if a need. CM will continue to follow for d/c needs. ALECIA GOMEZ, RN-Tapeman - 02/07/2019 9:04 EST documented in this encounter Plan of Treatment Not on file documented as of this encounter Visit Diagnoses Not on filedocumented in this encounter
--- OUTSIDE RECORDS SUMMARY | 2024-11-16 14:59 | XMS_ITS | Encounter Summary ---
Author Organization [employer] ([place], [place], [place], [place]) Address [address] [place] [address] Care Team Providers Care Microfilm Clerk Name Role Phone Unavailable Primary Care Provider Unavailabl e Encounter Details Date Type Department Care Team (Late st Contact Info) Description 02/08/2019 Transcribed Document [facility] [place] [facility] [place] [address] ProviderYusuf MD [facility] [place] [address] Social History Tobacco Use Types [...] - Historical ProviderMD - 02/08/2019 6:01 AM HARNESS INSTALLER Event Note Entered On: 02/08/2019 6:04 EST [...]
--- OUTSIDE RECORDS SUMMARY | 2024-11-16 14:59 | XMS_ITS | Encounter Summary ---
Author Organization [employer] ([place], [place], [place], [place]) Address [address] [place] [address] Care Team Providers Care Electronic Die Maker Name Role Phone Unavailable Primary Care Provider Unavailabl e Encounter Details Date Type Department Care Team (Late st Contact Info) Description 02/05/2019 Transcribed Document [facility] [place] Family Medicine [facility] [place] [address] ProviderYusuf MD [facility] [place] [address] Social History Tobacco Use Types [...] - Historical ProviderMD - 02/05/2019 2:38 PM REFRIGERATION MECHANIC HELPER Treatment Intervention, PT Entered On: 02/06/2019 11:48 [...] : Occupational Therapist Assisted by, PT : cardiac technician/aide Personal Devices : Personal Devices Glasses Assistive [...] SIVAKUMAR MCKINLEY PT - 02/06/2019 11:44 EST [facility] Goals Mobility/Bed Mobility LTG PT Grid Goal [...] 02/06/2019 11:44 EST Electronically signed by Lillian [facility] [employer] Conversion Sales Representative Public [employer] Cerner at 07/07/2022 9:58 PM CDT documented in this encounter Plan of Treatment Not on file documented as of this encounter Visit Diagnoses Not on filedocumented in this encounter
--- OUTSIDE RECORDS SUMMARY | 2024-11-16 14:59 | XMS_ITS | Encounter Summary ---
Author Organization [employer] ([place], [place], [place], [place]) Address [address] [place] [address] Care Team Providers Care Pmo Project Manager Name Role Phone Unavailable Primary Care Provider Unavailabl e Encounter Details Date Type Department Care Team (Late st Contact Info) Description 02/08/2019 Transcribed Document [facility] [place] [facility] [place] [address] ProviderYusuf MD [facility] [place] [address] Social History Tobacco Use Types [...] - Historical ProviderMD - 02/08/2019 2:23 PM CERTIFIED DRIVER EXAMINER Patient: FRANKY SCOTT Age: 74 Years Sex: [...] overnight and is now wearing 02 by MD. Psychiatric - patient received some IV Lorazepam overnight for anxiety . She denies any suicidality . Objective Vitals & Measurements T: 36.6 ??C TMIN: 36.3 ??C TMAX: 36.8 ??C HR: 83(Monitored) RR: 16 BP: 143/85 SpO2: 97% WT: 80 kg Physical Exam Patient lying comfortably in bed wearing 02 by MD. Motor - 4/5 in both arms. 2/5 [...]
--- OUTSIDE RECORDS SUMMARY | 2024-11-16 14:59 | XMS_ITS | Encounter Summary ---
Author Organization [employer] ([place], [place], [place], [place]) Address [address] [place] [address] Care Team Providers Care Process Architect Name Role Phone Unavailable Primary Care Provider Unavailabl e Encounter Details Date Type Department Care Team (Late st Contact Info) Description 02/15/2019 Transcribed Document [facility] [place] [facility] [place] [address] ProviderYusuf MD [facility] [place] [address] Social History Tobacco Use Types [...] - Historical ProviderMD - 02/15/2019 10:46 AM HAIR CUTTER Nursing Discharge Summary Entered On: 02/15/2019 10:47 [...] 02/15/2019 10:46 EST Electronically signed by Lillian [facility] Conversion Hospice Entrance Attendant Cerner at 07/07/2022 9:49 PM CDT documented in this encounter Plan of Treatment Not on file documented as of this encounter Visit Diagnoses Not on filedocumented in this encounter
--- OUTSIDE RECORDS SUMMARY | 2024-11-16 14:59 | XMS_ITS | Encounter Summary ---
Author Organization [employer] ([place], [place], [place], [place]) Address [address] [place] [address] Care Team Providers Care Vacuum Plastic Forming Machine Operator Name Role Phone Unavailable Primary Care Provider Unavailabl e Encounter Details Date Type Department Care Team (Late st Contact Info) Description 02/08/2019 Transcribed Document [facility] Radiology [address] [place] [address] Anne Peters MD [address] [place] [address] [address] [place] [id number] Social History Tobacco Use Types Packs/Day Years [...] physician Dr. Johan Sue neurology [facility] Chief complaint bilateral upper [...] At risk for sleep apnea / IMO [id number] / Confirmed, Active Problems (3) At risk [...] gallop, S1+ S2 No S3 or S4 [place].. Gastrointestinal: Soft, Non-tender, Non-distended, Normal bowel sounds. [...] (FEB 05) Radiology Results (Last 48 hours) [id number] -- 02/05/2019 10:21 CR Fluoro GD Lumbar Punct Dx (02/06/2019 14:40) Result: LUMBAR PUNCTURE AND FLUOROSCOPYHISTORY: Transverse myelitis.ATTENDING PHYSICIAN: Baljit Gee M.D.PHYSICIAN GARAGE SUPERVISOR: KELSIE LuqueCPROCEDURE: After informed consent was obtained [...]
--- OUTSIDE RECORDS SUMMARY | 2024-11-16 14:59 | XMS_ITS | Encounter Summary ---
Author Organization [employer] ([place], [place], [place], [place]) Address [address] [place] [address] Care Team Providers Care Bucket Chucker Name Role Phone Unavailable Primary Care Provider Unavailabl e Encounter Details Date Type Department Care Team (Late st Contact Info) Description 02/07/2019 Transcribed Document [facility] [place] Family Medicine [facility] [place] [address] ProviderYusuf MD [facility] [place] [address] Social History Tobacco Use Types [...] - Historical ProviderMD - 02/07/2019 5:00 AM TELEPHOTO ENGINEER Chart Check - Review Order Profile Entered [...]
--- OUTSIDE RECORDS SUMMARY | 2024-11-16 14:59 | XMS_ITS | Encounter Summary ---
Author Organization [employer] ([place], [place], [place], [place]) Address [address] [place] [address] Care Team Providers Care Customer Success Advocate Name Role Phone Unavailable Primary Care Provider Unavailabl e Encounter Details Date Type Department Care Team (Late st Contact Info) Description 02/16/2019 Transcribed Document [facility] [place] [facility] [place] [address] ProviderYusuf MD [facility] [place] [address] Social History Tobacco Use Types [...] - Historical ProviderMD - 02/16/2019 7:49 AM PROJECT DEVELOPMENT ENGINEER Discharge Summary, PT Entered On: 02/16/2019 7:50 [...] with a Rwx. She was D/C to [facility] for follow up rehab. ROBERT TINAJERO, [...] ROBERT TINAJERO, PT - 02/16/2019 7:49 EST Boat Tender Goals Mobility/Bed Mobility LTG PT Grid Goal [...] 02/16/2019 7:49 EST Electronically signed by Lillian [facility] Conversion Corporate Travel Consultant Cerner at 07/07/2022 9:48 PM CDT documented in this encounter Plan of Treatment Not on file documented as of this encounter Visit Diagnoses Not on filedocumented in this encounter
--- OUTSIDE RECORDS SUMMARY | 2024-11-16 14:59 | XMS_ITS | Clinical Summary ---
Author Organization [employer] ([place], [place], [place], [place]) Address [address] [place] [address] Care Team Providers Care Manager Rehab Name Role Phone Unavailable Primary Care Provider [...]
--- OUTSIDE RECORDS SUMMARY | 2024-11-16 14:59 | XMS_ITS | Encounter Summary ---
Author Organization [employer] ([place], [place], [place], [place]) Address [address] [place] [address] Care Team Providers Care Provider Education Specialist Name Role Phone Unavailable Primary Care Provider Unavailabl e Encounter Details Date Type Department Care Team (Late st Contact Info) Description 02/15/2019 Transcribed Document [facility] [place] [facility] [place] [address] ProviderYusuf MD [facility] [place] [address] Social History Tobacco Use Types [...] - Yusuf ProviderMD - 02/15/2019 11:32 AM IRRADIATED FUEL HANDLER Final Discharge Planning Entered On: 02/15/2019 11:35 EST Performed On: 02/15/2019 11:32 EST by ALECIA GOMEZ RN-Girl Friday Final Discharge Planning Discharge Arrangements : Patient Post-Acute Information Patient Name: FRANKY DEWITT Gender: Female : [birth year] Age: 74 Years Curaspan Referral(s): Service: Organization: Business Address: Phone Number: Acute Rehab [facility] [address] [place], [address] Patient Offered Choice/Affiliations Explained : Yes Transportation Needs : Family/Friend ALECIA GOMEZ RN-Girl Friday - 02/15/2019 11:32 EST Final Narrative Note Final Narrative Note : CM reviewed chart. CM met with pt to discuss DCP. [facility] spinal Cord unti today. will transport. IM and choice signed. Report to Rehabilitation: [facility] spinal cord unit/ Discharge Summary: [phone] faxed [facility] Follow up with Dr. Sue in 2 weeks. Pt informed. Follow up with Dr. Allen as recommended in 2-3 weeks. Pt informed. Historical Narrative Note : CM reviewed chart. RRS 32. CM met to discuss DCP. [facility] spinal cord unit today. will transport. IM and Choice signed.. Cm informed pharmacy and bedside RN. Confirmed with [facility]. No further needs noted. ALECIA GOMEZ, RN-Girl Friday - 02/15/19 11:02:20 ALECIA GOMEZ, JONATAN-Girl Friday - 02/15/2019 11:32 EST documented in this encounter Plan of Treatment Not on file documented as of this encounter Visit Diagnoses Not on filedocumented in this encounter
--- OUTSIDE RECORDS SUMMARY | 2024-11-16 14:59 | XMS_ITS | Encounter Summary ---
Author Organization [employer] ([place], [place], [place], [place]) Address [address] [place] [address] Care Team Providers Care Radio Interference Expert Name Role Phone Unavailable Primary Care Provider Unavailabl e Encounter Details Date Type Department Care Team (Late st Contact Info) Description 02/07/2019 Transcribed Document [facility] Radiology [address] [place] [address] Anne Peters MD [address] [place] [address] [address] [place] [id number] Social History Tobacco Use Types Packs/Day Years [...] Referring physician Dr. Johan Sue neurology [facility] Chief complaint bilateral upper and lower [...] At risk for sleep apnea / IMO [id number] / Confirmed, Active Problems (3) At risk [...] gallop, S1+ S2 No S3 or S4 [place].. Gastrointestinal: Soft, Non-tender, Non-distended, Normal bowel sounds. [...] (NOV ) Radiology Results (Last 48 hours) [id number] -- 02/05/2019 10:21 MRI Spine Cervical WO [...] cord from the cervicomedullary junction to the C4-N1itach. There is mild enhancement of the cord. [...] broad-based posterior disc bulging at C4-C5. At C6-S7kzzje is a central to left paracentral disc [...] FLUOROSCOPYHISTORY: Transverse myelitis.ATTENDING PHYSICIAN: Baljit Gee M.D.PHYSICIAN LEGAL COUNSEL: JIMBO Luque-CPROCEDURE: After informed consent was obtained [...]
--- OUTSIDE RECORDS SUMMARY | 2024-11-16 14:59 | XMS_ITS | Encounter Summary ---
Author Organization [employer] ([place], [place], [place], [place]) Address [address] [place] [address] Care Team Providers Care Sterilisation Technician Name Role Phone Unavailable Primary Care Provider Unavailabl e Encounter Details Date Type Department Care Team (Late st Contact Info) Description 02/15/2019 Transcribed Document [facility] [place] [facility] [place] [address] ProviderYusuf MD [facility] [place] [address] Social History Tobacco Use [...] - Yusuf ProviderMD - 02/15/2019 1:26 PM SORTING COWS WORKER [facility] [place], [place] [id number] FRANKY DEWITT :1945 Visit Time:02/05/2019 Your Visit [...] next Instructions From Your Care Team Rehabilitation: [facility] spinal cord unit/ / Discharge Summary: [phone] faxed [facility] Transportation: Car with family Follow up with Dr. Sue in 2 weeks. Follow up with Dr. Allen as recommended in 2-3 weeks. Discharge Follow Up Instructions: Follow-Up Appointments Follow Up with BRISEIDA SUE MD-GIBSON When Within 1 month Where: [address] [facility] [place] [address] [address]- Medications What How Much When Instructions Next [...] ? Manage bowel and bladder problems. ? Cora with mental health problems. ? Manage pain. [...] 02/25/2003 Document Revised: 11/02/2016 Document Reviewed: 05/21/2014 [employer] Interactive Patient Education ?? 2019 [employer] Near-Syncope Near-syncope is when you suddenly [...] This can help with dizziness. ??? Take cyar-prm-qvktirj and prescription medicines only as told by [...] 08/23/2008 Document Revised: 04/20/2017 Document Reviewed: 11/19/2015 [employer] Interactive Patient Education ?? 2019 [employer] Weakness Weakness is a lack of [...] sleep you need each night. ??? Take pczi-glz-tvysjvo and prescription medicines only as told by [...] about working with a physical therapist or puppy trainer to help you get stronger. ??? [...] 02/17/2009 Document Revised: 04/01/2016 Document Reviewed: 12/26/2015 [employer] Interactive Patient Education ?? 2019 enavu. Transverse Myelitis Transverse myelitis is a condition [...] may need to see a nervous systems navigator (neurologist) to have tests, which may include: [...] Follow these instructions at home: ??? Take dhag-efp-zprrchz and prescription medicines only as told by [...] 02/25/2003 Document Revised: 11/07/2016 Document Reviewed: 08/13/2015 [employer] Interactive Patient Education ?? 2019 enavu. prednisone (PRED lucas zelda Wallsos What is [...] may report side effects to FDA at 6-562-GYP-2672. What other drugs will affect prednisone? Sometimes [...] may affect prednisone. This includes prescription and rqpw-eww-duysrer medicines, vitamins, and herbal products. Not all [...] to ensure that the information provided by [employer]. ('[employer]') is accurate, up-to-date, and complete, but no guarantee is made to that effect. Drug information contained herein may be time sensitive. [employer] information has been compiled for use by healthcare practitioners and consumers in the [place] and therefore [employer] does not warrant that uses outside of the [place] are appropriate, unless specifically indicated otherwise. [employer] drug information does not endorse drugs, diagnose patients or recommend therapy. [employer] drug information is an informational resource designed [...] effective or appropriate for any given patient. [facility] does not assume any responsibility for any aspect of healthcare administered with the aid of information [facility] provides. The information contained herein is not intended to cover all possible uses, directions, precautions, warnings, drug interactions, allergic reactions, or adverse effects. If you have questions about the drugs you are taking, check with your doctor, nurse or pharmacist. Copyright 4020-0046 [facility]mondsXtreme InstallsXiaoSheng.fm. Version: 10.. Revision Date: 06/15/2018. Emergency Awareness [...] Assistance with quitting is available by contacting 3-143-TCPH-NOW. This is a free resource providing counseling, [...] range between ( 0.0 and 7.0 ) [place] #: 0.75 K/uL -- Normal range between ( 0.16 and 1.00 ) Eos #: 0.08 x10(3)/uL -- Normal range between ( 0.00 and 0.80 ) [place] %: 8.5 % -- Normal range between [...] RBC Morphology: Normal ANC #: 3 K/uL [place] Percent Man: 9 % -- Normal range [...] ) Urine Bilirubin Dipstick: Negative Urine Specific [place]: 1.020 -- Normal range between ( 1.005 [...] was given the opportunity to ask questions. Patient/Botany Teacher Name: Patient/Botany Teacher Signature: Relationship to Patient: Clinician/Hospital Botany Teacher Signature: Date: documented in this encounter Plan of Treatment Not on file documented as of this encounter Visit Diagnoses Not on filedocumented in this encounter
--- OUTSIDE RECORDS SUMMARY | 2024-11-16 14:59 | XMS_ITS | Encounter Summary ---
Author Organization [employer] ([place], [place], [place], [place]) Address [address] [place] [address] Care Team Providers Care Admiralty Lawyer Name Role Phone Unavailable Primary Care Provider Unavailabl e Encounter Details Date Type Department Care Team (Late st Contact Info) Description 02/15/2019 Transcribed Document [facility] [place] [facility] [place] [address] ProviderYusuf MD [facility] [place] [address] Social History Tobacco Use Types [...] - Yusuf ProviderMD - 02/15/2019 10:59 AM DEBARKER OPERATOR Final Discharge Planning Entered On: 02/15/2019 11:02 EST Performed On: 02/15/2019 10:59 EST by ALECIA GOMEZ RN-Tenant Coordinator Final Discharge Planning Discharge Arrangements : Patient Post-Acute Information Patient Name: FRANKY SCOTT Gender: Female : [birth year] Age: 74 Years Curaspan Referral(s): Service: Organization: Business Address: Phone Number: Acute Rehab [facility] [address] [place], [address] Patient Offered Choice/Affiliations Explained : Yes Transportation Needs : Family/Friend Discharge To Care Management : IRF -Inpatient Rehabilitation Facility- ALECIA GOMEZ RN-Tenant Coordinator - 02/15/2019 10:59 EST Final Narrative Note Final Narrative Note : CM reviewed chart. RRS 32. CM met to discuss DCP. [facility] spinal cord unit today. will transport. IM and Choice signed.. Cm informed pharmacy and bedside RN. Confirmed with [facility]. No further needs noted. ALECIA GOMEZ, JONATAN-Tenant Coordinator - 02/15/2019 10:59 EST Electronically signed by Interface, [facility] Conversion Short Story Writer Cerner at 07/07/2022 9:55 PM CDT documented in this encounter Plan of Treatment Not on file documented as of this encounter Visit Diagnoses Not on filedocumented in this encounter
--- OUTSIDE RECORDS SUMMARY | 2024-11-16 14:59 | XMS_ITS | Encounter Summary ---
Author Organization [employer] ([place], [place], [place], [place]) Address [address] [place] [address] Care Team Providers Care Landscaping Crew Leader Name Role Phone Unavailable Primary Care Provider Unavailabl e Encounter Details Date Type Department Care Team (Late st Contact Info) Description 02/05/2019 Transcribed Document [facility] [place] [facility] [place] [address] ProviderYusuf MD [facility] [place] [address] Social History Tobacco Use Types [...] - Historical ProviderMD - 02/05/2019 10:38 AM EYE SURGEON Pain Assessment Entered On: 02/09/2019 15:20 EST [...]
--- OUTSIDE RECORDS SUMMARY | 2024-11-16 14:59 | XMS_ITS | Encounter Summary ---
Author Organization [employer] ([place], [place], [place], [place]) Address [address] [place] [address] Care Team Providers Care Condenser Tube Tender Name Role Phone Unavailable Primary Care Provider Unavailabl e Encounter Details Date Type Department Care Team (Late st Contact Info) Description 02/15/2019 Transcribed Document [facility] [place] [address] [place] [address] ProviderYusuf MD [facility] [place] [address] Social History Tobacco Use Types [...] - Historical ProviderMD - 02/15/2019 2:00 AM BUILDING TRADES INSTRUCTOR Phlebotomy Director Details Entered On: 02/15/2019 6:48 EST Performed [...]
--- OUTSIDE RECORDS SUMMARY | 2024-11-16 15:00 | XMS_ITS | Encounter Summary ---
Author Organization [employer] ([place], [place], [place], [place]) Address [address] [place] [address] Care Team Providers Care Clinical Data Abstractor Name Role Phone Unavailable Primary Care Provider Unavailabl e Encounter Details Date Type Department Care Team (Late st Contact Info) Description 02/05/2019 Transcribed Document [facility] Family Medicine [facility] [place] [address] ProviderYusuf MD [facility] [place] [address] Social History Tobacco Use Types [...] - Historical ProviderMD - 02/05/2019 6:08 PM PASTE UP COPY CAMERA OPERATOR DATE OF CONSULTATION: 02/05/2019 HISTORY OF PRESENT [...] , she had to attend a in [facility] where she and her spent a lot of time walking around [facility] and during that walking trip around [facility], when she tried to get her legs into an SUV, she noticed that both of her legs were weak and she was having trouble lifting her legs up to get into the SUV. When she returned back to [place] in late December, she received another steroid [...] even went to an emergency room in [facility] recently and they let her go [...] 4. Hydrochlorothiazide. 5. Losartan. 6. Biotin. 7. [place]-3. 8. Potassium. 9. Zoloft. 10. Coenzyme Q. [...] years. SOCIAL HISTORY: The patient lives in [place] with her . She has three children. [...] through XII are intact. Coordination shows intact lqfjqf-cd-wreh and mche-ak-vmwz. Reflexes are hyperactive throughout at 2 to 3+ with bilaterally upgoing toes. Sensory exam shows intact joint position in both feet. Gait was not tested. LABORATORY DATA: The patient had an MRI scan of her brain done at [facility] on February 02 as being read, [...] her . I will follow with you. /[id number] MD ROSIO Leone/ERASMO / ROSIO / MODL /[id number] documented in this encounter Plan of Treatment Not on file documented as of this encounter Visit Diagnoses Not on filedocumented in this encounter
--- OUTSIDE RECORDS SUMMARY | 2024-11-16 15:00 | XMS_ITS | Encounter Summary ---
Author Organization [employer] ([place], [place], [place], [place]) Address [address] [place] [address] Care Team Providers Care Metal Grader Name Role Phone Unavailable Primary Care Provider Unavailabl e Encounter Details Date Type Department Care Team (Late st Contact Info) Description 02/08/2019 Transcribed Document [facility] [place] [address] [place] [address] ProviderYusuf MD [facility] [place] [address] Social History Tobacco Use Types [...] - Historical ProviderMD - 02/08/2019 12:58 AM MATHEMATICS FACULTY MEMBER Event Note Entered On: 02/08/2019 1:00 EST [...] Lesly Colindres RN - 02/08/2019 0:58 EST Electronically signed by Onel Snyder Conversion Railroad Wheels And Axle Inspector Cerner at 07/07/2022 9:55 PM CDT documented in this encounter Plan of Treatment Not on file documented as of this encounter Visit Diagnoses Not on filedocumented in this encounter
--- OUTSIDE RECORDS SUMMARY | 2024-11-16 15:00 | XMS_ITS | Encounter Summary ---
Author Organization [employer] ([place], [place], [place], [place]) Address [address] [place] [address] Care Team Providers Care Mail Order Sorter Name Role Phone Unavailable Primary Care Provider Unavailabl e Encounter Details Date Type Department Care Team (Late st Contact Info) Description 02/06/2019 Transcribed Document [facility] Radiology [address] [place] [address] Anne Peters MD [address] [place] [address] [place] [id number] Social History Tobacco Use Types Packs/Day Years [...] discharge Referring physician Dr. Johan Sue neurology [facility] Chief complaint bilateral upper and lower [...] At risk for sleep apnea / IMO [id number] / Confirmed, Active Problems (3) At risk [...] gallop, S1+ S2 No S3 or S4 [place].. Gastrointestinal: Soft, Non-tender, Non-distended, Normal bowel sounds. [...] (FEB 05) Radiology Results (Last 48 hours) [id number] -- 02/05/2019 10:21 MRI Spine Cervical WO [...] cord from the cervicomedullary junction to the C4-B1ufcve. There is mild enhancement of the cord. [...] broad-based posterior disc bulging at C4-C5. At C6-O4idafu is a central to left paracentral disc [...]
--- OUTSIDE RECORDS SUMMARY | 2024-11-16 15:00 | XMS_ITS | Encounter Summary ---
Author Organization [facility] ([place], [place], [place], [place]) Address [address] [place] [address] Care Team Providers Care Lasting Room Machine Operator Name Role Phone Unavailable Primary Care Provider Unavailabl e Encounter Details Date Type Department Care Team (Late st Contact Info) Description 02/05/2019 Transcribed Document [facility] [place] [facility] [place] [address] ProviderYusuf [place] [address] Social History Tobacco Use Types [...] - Historical ProviderMD - 02/05/2019 10:16 AM BEEF KILLER Admission History, Adult Entered On: 02/05/2019 11:36 [...] From : Patient, Spouse Primary Language : Qatari Preferred Communication Mode : Verbal Communication Barrier [...] Level : 46 or > High Risk [place] Fall Interventions : Adequate lighting, Assistive devices [...] Source : Measured Height Entry Format : [place] Height, Feet : 5 ft(Converted to: 152 cm, 60 Inch) Height, Inches : 5 Inch(Converted to: 0 ft 5 Inch, 12.70 cm) Clinical Height : 165.1 cm Weight Source : Bed scale Weight Entry Format : [place] Clinical Dosing Weight : 79.09 kg Weight, Pounds : 174 lb Body Surface Area (BSA) : 1.87 m2 Body Mass Index : 29 kg/m2 (HI) [place] Body Weight : 57 kg SAVANNA VARGAS [...] SAVANNA VARGAS RN - 02/05/2019 11:27 EST [place] Suicide Severity Rating Scale (C-SSRS) CSSRS Past [...]
--- OUTSIDE RECORDS SUMMARY | 2024-11-16 15:00 | XMS_ITS | Encounter Summary ---
Author Organization [employer] ([place], [place], [place], [place]) Address [address] [place] [address] Care Team Providers Care Mixed Crop Farmer Name Role Phone Unavailable Primary Care Provider Unavailabl e Encounter Details Date Type Department Care Team (Late st Contact Info) Description 02/05/2019 Transcribed Document [facility] [place] [address] [place] [address] ProviderYusuf MD [facility] [place] [address] Social History Tobacco [...] - Historical ProviderMD - 02/05/2019 5:00 PM C4 PLANNER Chart Check - Review Order Profile Entered [...]
--- OUTSIDE RECORDS SUMMARY | 2024-11-16 15:00 | XMS_ITS | Encounter Summary ---
Author Organization [employer] ([place], [place], [place], [place]) Address [address] [place] [address] Care Team Providers Care Stretching Machine Tender Frame Name Role Phone Unavailable Primary Care Provider Unavailabl e Encounter Details Date Type Department Care Team (Late st Contact Info) Description 02/08/2019 Transcribed Document [facility] [place] [facility] [place] [address] ProviderYusuf MD [facility] [place] [address] Social History Tobacco Use Types [...] - Historical ProviderMD - 02/08/2019 9:14 AM TRANSLATOR/INTERPRETER On Going Discharge Planning Entered On: 02/08/2019 9:16 EST Performed On: 02/08/2019 9:14 EST by ALECIA GOMEZ RN-Information Security SpecialistFurniture Manager Progress Note Discharge Arrangements : Patient Post-Acute [...] : Clinical Condition of Patient ALECIA GOMEZ RN-Information Security Specialist - 02/08/2019 9:14 EST Narrative Progress Note [...] to follow for d/c needs. ALECIA GOMEZ, RN-Information Security Specialist - 02/07/19 09:05:36 ALECIA GOMEZ RN-Information Security Specialist - 02/08/2019 9:14 EST Electronically signed by Lillian [facility] Conversion Clothes Marker Cerner at 07/07/2022 9:59 PM CDT documented in this encounter Plan of Treatment Not on file documented as of this encounter Visit Diagnoses Not on filedocumented in this encounter
--- OUTSIDE RECORDS SUMMARY | 2024-11-16 15:00 | XMS_ITS | Encounter Summary ---
Author Organization [employer] ([place], [place], [place], [place]) Address [address] [place] [address] Care Team Providers Care Locomotive Switch Operator Name Role Phone Unavailable Primary Care Provider Unavailabl e Encounter Details Date Type Department Care Team (Late st Contact Info) Description 02/09/2019 Transcribed Document [facility] [place] [facility] [place] [address] ProviderYusuf MD [place] [address] Social History Tobacco Use Types [...] - Historical ProviderMD - 02/09/2019 5:08 PM PALM GATHERER Patient: FRANKY SCOTT Age: 74 Years Sex: [...]
--- OUTSIDE RECORDS SUMMARY | 2024-11-16 15:00 | XMS_ITS | Encounter Summary ---
Author Organization [employer] ([place], [place], [place], [place]) Address [address] [place] [address] Care Team Providers Care Assembler Final Name Role Phone Unavailable Primary Care Provider Unavailabl e Encounter Details Date Type Department Care Team (Late st Contact Info) Description 02/05/2019 Transcribed Document [facility] [place] [facility] [place] [address] ProviderYusuf MD [facility] [place] [address] Social History Tobacco Use Types [...] - Historical ProviderMD - 02/05/2019 10:38 AM SURVEY RESEARCHER Education-(VTE) / (DVT) Entered On: 02/05/2019 17:17 [...]
--- OUTSIDE RECORDS SUMMARY | 2024-11-16 15:00 | XMS_ITS | Encounter Summary ---
Author Organization [employer] ([place], [place], [place], [place]) Address [address] [place] [address] Care Team Providers Care Signal Maintainer Name Role Phone Unavailable Primary Care Provider Unavailabl e Encounter Details Date Type Department Care Team (Late st Contact Info) Description 02/06/2019 Transcribed Document [facility] [place] [facility] [place] [address] ProviderYusuf MD [facility] [place] [address] Social History Tobacco Use [...] - Historical ProviderMD - 02/06/2019 3:39 PM DIRECTOR OF OPERATIONS HOME HEALTH Patient: FRANKY SCOTT Age: 74 Years Sex: [...] Meningitis/Encephalitis Panel Myelin Basic Protein, Sendout Pathology Non-Production Sampler Request RPR Rapid Plasma Reagin Sequential Compression [...] Tab, Oral, Daily Electronically signed by Lillian, [facility] Conversion Electron Tube Assembler Cerner at 07/07/2022 9:59 PM CDT documented in this encounter Plan of Treatment Not on file documented as of this encounter Visit Diagnoses Not on filedocumented in this encounter
--- OUTSIDE RECORDS SUMMARY | 2024-11-16 15:00 | XMS_ITS | Patient Health Record ---
Author Organization [facility] Address [address] [facility] [address] [place] [id number] Care Team Providers Care Photogrammetry Airplane Pilot Name Role Phone Jensen Santiago Primary Care Provider [phone] Maryanne Malik Unavailable [phone] Allergies Allergen (clinical drug ingredient) Drug/Non Drug [...] Interpretation:mild OA Performing Lab: Notes/Report: mild OA Urinalysis - Inhouse Reviewed date:11/06/2024 09:02:02 AM Interpretation: Performing Lab: Notes/Report: Color/Clarity Yellow/Cloudy Leuk 3+ Nitrite Neg Urobili 3.2 Protein Trace pH 5.5 Blood Trace-Intact Sp. Gr. 1.015 Ketone Neg Bili Neg Gluc Neg P-Culture, Urine Reviewed date:11/09/2024 01:30:44 PM Interpretation:sensitive Performing Lab: Notes/Report: Test performed by [facility] , [address], [place] [address] Danilo Duran MD, Cnc Machinist 2Nd Shift CLIA: [id number] Specimen Source Urine - Cath Culture, Urine See Below See Microbiol ogy Report Escherichia coli ESBL 50,000-100,000 CFU /ml Escherichia coli ESBL This isolate is a confirmed ESBL (Extended Spectrum Beta-Lactamase) seafood specialist and should be considered clinically resistant to [...] S=SUSCEPTIBLE I=INTERMEDIATE R=RESISTANT Urinalysis - Inhouse Reviewed date:11/13/2024 04:09:24 PM [...] Interpretation: Performing Lab: Notes/Report: Test performed by [employer] [address] , [address], [place] [address] Danilo Duran MD, Cnc Machinist 2Nd Shift CLIA: [id number] Specimen Source Urine - Cath Culture, Urine See Below See Microbiol ogy Report Klebsiella pneumoniae ESBL 25,000-50,000 CFU/ml Klebsiella pneumoniae ESBL This isolate is a confirmed ESBL (Extended Spectrum Beta-Lactamase) seafood specialist and should be considered clinically resistant to [...] S=SUSCEPTIBLE I=INTERMEDIATE R=RESISTANT Urinalysis - Inhouse Reviewed date:07/17/2024 08:11:10 AM Interpretation: Performing Lab: Notes/Report: Color/Clarity yellow/cloudy Leuk 2+ Nitrite Pos Urobili 3.2 Protein 3+ pH 6.0 Blood 2+ Sp. Gr. 1.020 Ketone Trace Bili Neg Gluc Neg Urinalysis - Inhouse Reviewed date:06/12/2024 02:41:39 PM Interpretation: Performing Lab: Notes/Report: Color/Clarity yellow/cloudy Leuk 2+ Nitrite neg Urobili 3.2 Protein 1+ pH 5.5 Blood trace Sp. Gr. 1.015 Ketone neg Bili neg Gluc neg P-Culture, Urine Reviewed date:06/15/2024 01:26:54 PM Interpretation: Performing Lab: Notes/Report: Test performed by [employer] [facility] [address] [place] [address] , [address], [place] [address] Danilo Duran MD, Cnc Machinist 2Nd Shift CLIA: [id number] Specimen Source Urine - Void Culture, Urine See Below See Microbiol ogy Report Klebsiella pneumoniae ESBL 50,000-100,000 CFU/ml Klebsiella pneumoniae ESBL This isolate is a confirmed ESBL (Extended Spectrum Beta-Lactamase) seafood specialist and should be considered clinically resistant to [...] S=SUSCEPTIBLE I=INTERMEDIATE R=RESISTANT Urinalysis - Inhouse Reviewed date:07/10/2024 05:16:27 PM Interpretation: Performing Lab: Notes/Report: Color/Clarity yellow/cloudy Leuk 3+ Nitrite Pos Urobili 3.2 Protein 1+ pH 6.0 Blood 1+ Sp. Gr. 1.015 Ketone Neg Bili Neg Gluc Neg TEN-UTI panel Reviewed date:07/13/2024 04:21:06 PM Interpretation:E. Coli Performing Lab: Notes/Report: E. Coli Urinalysis - Inhouse Reviewed date:12/09/2023 10:22:34 AM [...] Notes/Report: Result: Neg Urinalysis - Inhouse Reviewed date:05/29/2024 09:16:02 AM Interpretation: Performing Lab: Notes/Report: Color/Clarity yellow/cloudy Leuk 3+ Nitrite Neg Urobili 3.2 Protein Trace pH 5.5 Blood 1+ Sp. Gr. 1.015 Ketone Neg Bili Neg Gluc Neg TEN-UTI panel Reviewed date:05/30/2024 10:17:15 AM Interpretation:Klebsiella pneumoniae Performing Lab: Notes/Report: Klebsiella pneumoniae TEN-UTI panel Reviewed date:10/19/2024 08:23:33 AM Interpretation:Klebsiella pneumoniae Performing Lab: Notes/Report: Klebsiella pneumoniae Mammogram Reviewed date:09/19/2024 01:22:46 PM Interpretation:Negative Performing Lab: Notes/Report: Negative result negative Urinalysis - Inhouse Reviewed date:05/18/2024 11:19:11 AM Interpretation: Performing Lab: Notes/Report: Color/Clarity yellow/clear Leuk Trace Nitrite Neg Urobili 3.2 Protein Neg pH 6.0 Blood Neg Sp. Gr. 1.015 Ketone Neg Bili Neg Gluc Neg TEN-UTI panel Reviewed date:05/21/2024 02:41:27 PM Interpretation:Negative Performing Lab: Notes/Report: Negative Urinalysis - Inhouse Reviewed date:08/24/2024 05:00:18 PM Interpretation: Performing Lab: Notes/Report: Color/Clarity yellow Leuk 1+ Nitrite pos Urobili 3.2 Protein trace pH 5.5 Blood 3+ Sp. Gr. 1.015 Ketone neg Bili neg Gluc neg P-Culture, Urine Reviewed date:08/28/2024 09:10:04 AM Interpretation:E. Coli Performing Lab: Notes/Report: Test performed by [employer] [facility] [address] [place] [address] , [address], [place] [address] Danilo Duran MD, Cnc Machinist 2Nd Shift CLIA: [id number] Specimen Source Urine - Void Culture, Urine See Below See Microbiol ogy Report Escherichia coli ESBL 50,000-100,000 CFU /ml Escherichia coli ESBL This isolate is a confirmed ESBL (Extended Spectrum Beta-Lactamase) seafood specialist and should be considered clinically resistant to [...] Performing Lab: Notes/Report: Rejected. See 01/09/24 Order TEN-UTI panel Reviewed date:01/11/2024 02:47:23 PM Interpretation:Abnormal Performing Lab: Notes/Report: Abnormal Urinalysis - Inhouse Reviewed date:03/10/2024 11:06:10 AM Interpretation: Performing Lab: Notes/Report: Color/Clarity orange Leuk 3+ Nitrite pos Urobili 16 Protein 2+ pH 5.0 Blood trace-intact Sp. Gr. 1.020 Ketone trace Bili neg Gluc trace P-Culture, Urine Reviewed date:03/13/2024 10:55:09 AM Interpretation:Klebsiella pneumoniae Performing Lab: Notes/Report: Test performed by [facility] [employer] [facility] [employer] [address] , [address] , [place] [address] Danilo Duran MD, Cnc Machinist 2Nd Shift JENN: [id number] Specimen Source Urine - Void Culture, Urine See Below See Microbiol ogy Report Klebsiella pneumoniae ESBL 50,000-100,000 CFU/ml Klebsiella pneumoniae ESBL This isolate is a confirmed ESBL (Extended Spectrum Beta-Lactamase) seafood specialist and should be considered clinically resistant to [...] 1.015 Ketone Neg Bili Neg Gluc Neg Reason For Referral Diagnosis 1 Neurogenic bladder ( N31.9) [facility] Referring Provider First Name Jensen Referring Provider Last Name Pamela [facility] Provider Adam Kingston Referred Provider Specialty Urology General Notes Ninfa Correa 05/18/19 11:15:42 AM > faxed referral to 's office Referral Priority Routine Reason [facility] Diagnosis 1 Chronic UTI (N39.0) Diagnosis 2 Urinary retention (R 33.9) Diagnosis 3 Urinary incontinence in female (R32) Diagnosis 4 Bladder spasms (N32. 89) Referral Organization [facility] Referring Provider First Name Jensen Referring Provider Last Name Pamela Referring [facility]erred Provider Specialty Urology General Notes Ninfa Correa 2024 10:53:56 AM > faxed referral to [facility] Referral Priority Routine Diagnosis 1 Urinary retention (R 33.9) Diagnosis 2 Chronic UTI (N39.0) Diagnosis 3 Other urinary incont inence (N39.498) Diagnosis 4 Neurogenic bladder ( N31.9) [facility]erring Provider First Name Jensen Referring Provider Last Name Pamela Referring Provider [facility] Referred Provider Fifi [place] General Notes Ninfa Correa 2024 08:45:29 AM > faxed referral to [facility] Referral Priority Routine Medications Medication SIG (Take, Route, Frequency, Duration) Notes Start Date End Date Status Methenamine Hippurate 1 GM 1 tablet Oral ly once daily Active Pregabalin 150 MG 1 cap(s) orally 2 ti mes a day; Duration: 90 days 09/03/2024 Active Mycophenolate Mofetil 250 MG 1 capsule Orally Twice a day; Duration: 30 day(s) Active Ertapenem Sodium 1 GM 1 gram IM Injectio n daily; Duration: 5 days 11/16/2024 Active predniSONE 5 MG 1 tablet Orally Once a day; Duration: 30 day(s) Active Wegovy 0.25 MG/0.5ML 0.5 mL Subcutaneous once a week; Duration: 30 days 10/23/2024 Active Folic Acid 1 MG 1 tablet Orally Once a day; Duration: 30 day(s) Active Fish Oil 100MG Activ e Claritin 10 MG 1 tab(s) orally once a day Active Vitamin D3 25 MCG (1000 UT) 1 cap(s) ora lly once a day; Duration: 30 day(s) Active Eliquis 5 MG Take 1 tablet by jessica th twice daily; Duration: 30 Active Pantoprazole Sodium 40 MG 1 tablet 1/2 t o 1 hour before morning meal Orally Once a day; Duration: 30 day(s) 07/10/2024 Active DULoxetine HCl 60 MG Take 1 capsule by m outh once daily; Duration: 90 Active Hyoscyamine Sulfate 0.125 MG 1 tablet as needed Orally every 4 hrs 07/18/2024 Active Losartan Potassium 25 MG Take 1 tablet b y mouth once daily; Duration: 90 Active Methotrexate Sodium 2.5 MG as directed Orally Active Immunizations Vaccine Route Administration Date Status [...] 05/11/2018 Administered xFlu shot- 6months-36 months of nxl-PBLS-QANP-trivalent Unknown 02/08/2016 Administered xFluzone (6mos and older)-trivalent IM Intramuscular 02/05/2013 Administered xFluzone High Dose-private (65yr&older) IM Intramuscular 02/20/2014 Administered Problems Problem Type SNOMED Code ICD Code Onset Dates Problem Status W/U Status Risk Notes Problem Vitamin D deficiency (01882962) Vitamin D deficiency (E55.9) Active confirmed Problem Essential hypertension (45840730) Essential hypertension (I10) Active confirmed Problem Anxiety (40942131) Anxiety (F41.9) Active confi rmed Problem Urinary retention (564150052) Urinary retention (R33.9) Active confirmed Problem Osteopenia (051714743) Osteopenia (M85.80) Active confirmed Problem Neurogenic bladder (184751557) Neurogenic bladder (N31.9) Active confirmed Problem Overactive urinary bladder (disorder) (226208831) OAB (overactive bladder) (N32.81) Active confirmed Problem Mixed hyperlipidemia (519258224) Mixed hyperlipidemia (E78.2) Active confirmed Problem Urge incontinence of urine (70478565) Urge incontinence (N39.41) Active confirmed Problem Incontinence of feces (36048991) Full incontinence of feces (R15.9) Active confirmed Problem History of polyp of colon (situation) (784733683) Hx of colonic polyps (Z86.010) Active confirmed Problem Neuropathy (329042322) Neuropathy (G62.9) Active confirmed Problem Ataxia (24552133) Ataxia (R27.0) Active confirm ed Problem Claudication (78947085) Claudication (I73.9) Active confirmed Problem Urinary tract infectious disease (05561973) Chronic UTI (N39.0) Active confirmed Problem Body mass index 30.00 to 34.99 (606509558391445) BMI 31.0-31.9,adult (Z68.31) Active confirmed Problem Body mass index 30.00 to 34.99 (502440487664872) BMI 34.0-34.9,adult (Z68.34) Active confirmed Problem Spasm of bladder (769155593) Bladder spasms (N32.89) Active confirmed Problem Urge incontinence of urine (07588600) Urge incontinence of urine (N39.41) Active confirmed Problem Raynaud's disease (684760963) Raynaud's disease without gangrene (I73.00) Active confirmed Problem Obesity (873570730) Non morbid obesity (E66.9) Active confirmed Problem Arthritis of left knee (2459416807611193) Arthritis of left knee (M17.12) Active confirmed Problem Urinary incontinence (272325360) Other urinary incontinence (N39.498) Active confirmed Problem Seasonal allergic rhinitis (394846376) Seasonal allergic rhinitis, unspecified trigger (J30.2) Active confirmed Problem Cervical myelopathy (161271791) Cervical myelopathy (G95.9) Active confirmed Problem 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 Problem 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 Problem Gastroesophageal reflux disease (286883334) Gastroesophageal reflux disease, unspecified whether esophagitis present (K21.9) Active confirmed Problem Chronic kidney disease stage 3 (disorder) (200698891) Stage 3 chronic kidney disease, unspecified whether stage 3a or 3b CKD (N18.30) Active confirmed Problem Urinary incontinence (157388963) Urinary incontinence in female (R32) Active confirmed Problem Herniation of rectum into vagina (333856228) Rectocele, female (N81.6) Active confirmed Vital Signs Heart Rate 107 /min 11/13/2024 Blood pressure diastolic 70 mm Hg 11/13/2024 Height 65 in 11/13/2024 Blood pressure systolic 132 mm Hg 11/13/2024 Weight 204.4 lbs 11/13/2024 BMI 34.01 kg/m2 11/13/2024 Encounters Encounter Location Date Provider Diagnosis [place] [address] [facility] [address] [place] [id number] 12/08/2023 Jensen [place] Acute cough R05.1 ; Urinary tract infection without hematuria, site unspecified N39.0 ; Heartburn R12 ; Colon cancer screening Z12.11 and Hx of colonic polyps Z86.010 Tiffany [address] [facility] [address] [place] [id number] 01/02/2024 Jensen [place] Pyuria R82.81 and Frequency of urination R35.0 Tiffany [address] [facility] [address] [place] [id number] 2024 Jensen [place] [facility] [address] [facility] [address] [place], [place] [id number] 03/10/2024 Jensen [place] Urinary tract infect ion without hematuria, site unspecified N39.0 [facility] [address] [facility] [address] [place], [place] [id number] 03/16/2024 Jensen [place] Acute UTI N39.0 and Exposure to the flu Z20.828 [facility] [address] [facility] [address] [place] [id number] 03/23/2024 Jensen [place] Recurrent UTI N39.0 and Urge incontinence N39.41 [facility] [address] [facility] [address] [place], [place] [id number] 05/18/2024 Jensen [place] Urinary tract infect ion, site not specified N39.0 ; Unspecified Escherichia coli [E. coli] as the cause of diseases classified elsewhere B96.20 ; Neurogenic bladder N31.9 and Acute deep vein thrombosis (DVT) of left peroneal vein I82.452 [facility] [address] [facility] [address] [place] [id number] 05/28/2024 Jensen [place] Chronic UTI N39.0 an d Open wound of right lower extremity, initial encounter S81.801A [facility] [address] [facility] [address] [place], [place] [id number] 06/11/2024 Maryanne Malik UTI (lower urinary t ract infection) N39.0 [facility] [address] [facility] [address] [place] [id number] 06/15/2024 Jensen [place] Cystitis, unspecifie d without hematuria N30.90 and Klebsiella pneumoniae [K. pneumoniae] as the cause of diseases classified elsewhere B96.1 [facility] [address] [facility] [address] [place] [id number] 07/10/2024 Jensen [place] Acute cystitis witho ut hematuria N30.00 ; Gastroesophageal reflux disease, unspecified whether esophagitis present K21.9 and BMI 34.0-34.9,adult Z68.34 [facility] [address] [place] [id number] 07/16/2024 Jensen [place] Chronic UTI N39.0 [facility] [address] [place] [id number] 07/18/2024 Jensen [place] Chronic UTI N39.0 ; Urinary retention R33.9 ; Urinary incontinence in female R32 ; Bladder spasms N32.89 ; Dermatopolymyositis M33.90 and BMI 34.0-34.9,adult Z68.34 [facility] [address] [place], [place] [id number] 08/24/2024 Jensen [place] Pelvic pain R10.2 ; Chronic UTI N39.0 and Cook catheter in place Z92.89 [facility] [address] [place] [id number] 10/17/2024 Jensen [place] Chronic UTI N39.0 ; Pain in left knee M25.562 and Non morbid obesity E66.9 [facility] [address] [place] [id number] 11/05/2024 Jensen [place] Chronic UTI N39.0 [facility] [address] [place] [id number] 11/13/2024 Jensen [place] Chronic UTI N39.0 ; Urinary retention R33.9 and Rectocele, female N81.6 [facility] [address] [place] [id number] 01/11/2024 Jensen [place] [facility] [address] [place] [id number] 01/18/2024 Jensen [place] [facility] [address] [place] [id number] 02/24/2024 Jensen [place] Neuropathy G62.9 [facility] [address] [place] [id number] 03/13/2024 Jensen [place] [facility] [address] [place] [id number] 03/19/2024 Jensen [place] [facility] [address] [place] [id number] 06/11/2024 Jensen [place] [facility] [address] [place] [id number] 07/16/2024 Jensen [place] [facility] [address] [place] [id number] 07/23/2024 Jensen [place] [facility] [address] [place] [id number] 08/28/2024 Jensen [place] Chronic UTI N39.0 [facility] [address] [place], [place] [id number] 09/03/2024 Jensen [place] Neuropathy G62.9 [facility] [address] [place], [place] [id number] 09/03/2024 Jensen [place] Screening for breast cancer Z12.39 and Screening for osteoporosis Z13.820 [facility] [address] [place], [place] [id number] 09/07/2024 Jensen [place] Urinary retention R3 3.9 ; Other urinary incontinence N39.498 and Chronic UTI N39.0 [facility] [address] [place] [id number] 10/19/2024 Jensen [place] [facility] [address] [place] [id number] 10/23/2024 Jensen [place] [facility] [address] [place] [id number] 10/24/2024 Jensen [place] [facility] [address] [place] [id number] 11/16/2024 Jensen [place] Acute UTI N39.0 Assessments Encounter Date Diagnosis (ICD Code) Assessment Notes Treatment Notes Treatment Clinical Notes Section Notes 12/08/2023 Urinary tract infection without hematuria, site unspecified (ICD-10 - N39.0) 12/08/2023 Acute cough (ICD-10 - R05.1) 01/02/2024 [...] of diseases classified elsewhere (ICD-10 - B96.20) 08/28/2024 Chronic UTI (ICD-10 - N39.0) 09/03/2024 Neuropathy (ICD-10 - G62.9) 09/03/2024 Screening for breast cancer (ICD-10 - Z12.39) 08/24/2024 Chronic UTI (ICD-10 - N39.0) Patient to follow up with [facility] urology next week 08/24/2024 Pelvic pain (ICD-10 - R10.2) 09/07/2024 Urinary retention (ICD-10 - R33.9) 09/07/2024 Other urinary incontinence (ICD-10 - N39.498) 10/17/2024 Pain in left knee (ICD-10 - M25.562) 10/17/2024 Chronic UTI (ICD-10 - N39.0) 11/05/2024 Chronic UTI (ICD-10 - N39.0) 11/13/2024 Urinary retention (ICD-10 - R33.9) Spoke to Dr. Kingston. He recommends awaiting culture and then treat accordingly. Patient may need evaluation for a suprapubic catheter 11/13/2024 Chronic UTI (ICD-10 - N39.0) 11/16/2024 Acute UTI (ICD-10 - N39.0) 07/18/2024 Urinary incontinence in female (ICD-10 - R32) 11/13/2024 Rectocele, female (ICD-10 - N81.6) Doubt this of any significance to patient's current issues 10/17/2024 Non morbid obesity (ICD-10 - E66.9) Discussed starting Wegovy 09/07/2024 Chronic UTI (ICD-10 - N39.0) 08/24/[address] (ICD-10 - Z92.89) Cook catheter removed in office today. Patient had immediate pain relief. She will use catheters she has at home for intermittent bladder drainage 09/03/2024 Screening for osteoporosis (ICD-10 - Z13.820) 07/10/2024 BMI 34.0-34.9,adult (ICD-10 - Z68.34) 05/18/2024 [...] Order Date Bone density 09/03/2024 colonoscopy 12/08/2023 H-CBC 05/18/2024 H-BMP 05/18/2024 Insurance Providers Payer Name Payer Address Payer Phone Subscriber Number Group Number Insured Name Patient Relationship to Insured Coverage Start Date Coverage End Date MEDICARE PART B [address] [address] [place] [id number] Kelli Scott Self - patient is the insured [employer] [place] [address] [address] [place] [id number] Kelli Scott Self - patient is the [...] Dx: 2022 DVT, left leg May 2024 urinary retention Surgical History Surgery Date(Month/Year) Bladder Tuck 2008 Bladder Tuck 04/2012 Left Knee 12/08/18 Hospitalization History Reason Date(Month/Year) [facility] - Rehab - Cervical myelopa thy 02/15-02/24/2009 [facility] - 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
--- OUTSIDE RECORDS SUMMARY | 2024-11-16 15:00 | XMS_ITS | Encounter Summary ---
Author Organization [employer] ([place], [place], [place], [place]) Address [address] [place] [address] Care Team Providers Care Ice Cream Man Name Role Phone Unavailable Primary Care Provider Unavailabl e Encounter Details Date Type Department Care Team (Late st Contact Info) Description 02/06/2019 Transcribed Document [facility] [place] [facility] [address] [place] [address] ProviderYusuf MD [facility], [facility] [address] Social History Tobacco [...] - Historical ProviderMD - 02/06/2019 5:00 PM VAMP MAKER Chart Check - Review Order Profile [...]
--- OUTSIDE RECORDS SUMMARY | 2024-11-16 15:00 | XMS_ITS | Encounter Summary ---
Author Organization [employer] ([place], [place], [place], [place]) Address [address] [place] [address] Care Team Providers Care Census Clerk Name Role Phone Unavailable Primary Care Provider Unavailabl e Encounter Details Date Type Department Care Team (Late st Contact Info) Description 02/05/2019 Transcribed Document [facility] Family Medicine [facility] [place] [address] ProviderYusuf MD [facility] [place] [address] Social History Tobacco Use Types [...] - Historical ProviderMD - 02/05/2019 10:38 AM TIMBER SETTER Evaluation, Physical Therapy Entered On: 02/05/2019 14:38 [...] Impaired, gait, Impaired, strength, Impaired, transfers SAIMA CURYR, PT - 02/05/2019 14:32 EST Plan of Care, PT PT Tx Plan/Goals Established w Patient : Yes PT Frequency Rehab : Five days per week PT Duration Rehab : Fourteen days PT Treatments Planned : Gait training, Therapeutic exercises, Transfer training SAIMA CURRY, PT - 02/05/2019 14:32 EST Audio Visual Project Manager Goals Mobility/Bed Mobility LTG PT Grid Goal [...]
--- OUTSIDE RECORDS SUMMARY | 2024-11-16 15:00 | XMS_ITS | Encounter Summary ---
Author Organization [employer] ([place], [place], [place], [place]) Address [address] [place] [address] Care Team Providers Care Coordinate Measuring Equipment Operator Name Role Phone Unavailable Primary Care Provider Unavailabl e Encounter Details Date Type Department Care Team (Late st Contact Info) Description 02/05/2019 Transcribed Document [facility] [place] [facility] [place] [address] ProviderYusuf MD [facility] [place] [address] Social History Tobacco Use Types [...] - Yusuf ProviderMD - 02/05/2019 11:36 AM COMEDIAN Provider Notification Entered On: 02/06/2019 14:55 EST Performed On: 02/06/2019 11:36 EST by ROLY MEDEIROS RN Provider Notification Provider Notified of Concerns/Results : Change in status ROLY MEDEIROS RN - 02/06/2019 14:55 EST documented in this encounter Plan of Treatment Not on file documented as of this encounter Visit Diagnoses Not on filedocumented in this encounter
--- OUTSIDE RECORDS SUMMARY | 2024-11-16 15:00 | XMS_ITS | Encounter Summary ---
Author Organization [employer] ([place], [place], [place], [place]) Address [address] [place] [address] Care Team Providers Care Neurocritical Care Physician Name Role Phone Unavailable Primary Care Provider Unavailabl e Encounter Details Date Type Department Care Team (Late st Contact Info) Description 02/05/2019 Transcribed Document [facility] [place] Family Medicine [facility] [place] [address] ProviderYusuf MD [facility] [place] [address] Social History Tobacco Use Types [...] - Historical ProviderMD - 02/05/2019 10:39 AM SUPERINTENDENT SERVICE Consult Phone Call Documentation Entered On: 02/05/2019 17:41 EST Performed On: 02/05/2019 10:39 EST by SAVANNA VARGAS RN Phone Call for Consults Consult Reason : dr weiss here to see pt SAVANNA VARGAS RN - 02/05/2019 17:41 EST Electronically signed by Lillian [facility] Conversion Noodle Maker Cerner at 07/07/2022 9:56 PM CDT documented in this encounter Plan of Treatment Not on file documented as of this encounter Visit Diagnoses Not on filedocumented in this encounter
--- OUTSIDE RECORDS SUMMARY | 2024-11-16 15:00 | XMS_ITS | Encounter Summary ---
Author Organization [employer] ([place], [place], [place], [place]) Address [address] [place] [address] Care Team Providers Care Character Impersonator Name Role Phone Unavailable Primary Care Provider Unavailabl e Encounter Details Date Type Department Care Team (Late st Contact Info) Description 02/05/2019 Transcribed Document [facility] [place] Family Medicine [facility] [place] [address] ProviderYusuf MD [facility] [place] [address] Social History Tobacco Use Types [...] - Historical ProviderMD - 02/05/2019 10:38 AM RAILROAD INSPECTOR Evaluation, Occupational Therapy Entered On: 02/06/2019 15:17 [...] Supine in bed RN/PCT Informed Comment : JONAATN Gregory ok/nida Treatment End Time : 02/06/2019 [...] IVANIA BIRD OTR/Leeann 02/06/2019 15:12 EST Hand Cable Splicer Assistant Test : Bilateral rn dialysis strength WFL IVANIA BIRD OTR/Leeann 02/06/2019 15:12 [...] activities IVANIA BIRD OTR/Leeann 02/06/2019 15:12 EST Distribution Technician Goals, OT Grooming LTG Grid Goal #1 [...]
--- OUTSIDE RECORDS SUMMARY | 2024-11-16 15:00 | XMS_ITS | Encounter Summary ---
Author Organization [employer] ([place], [place], [place], [place]) Address [address] [place] [address] Care Team Providers Care Director Of Product Development Name Role Phone Unavailable Primary Care Provider Unavailabl e Encounter Details Date Type Department Care Team (Late st Contact Info) Description 02/06/[address] [facility] Radiology [address] [place] [address] Anne Peters MD [address] [place] [address] [address] [id number] Social History Tobacco Use Types [...] discharge Referring physician Dr. Johan Sue neurology [facility] Chief complaint bilateral upper and [...] At risk for sleep apnea / IMO [id number] / Confirmed, Active Problems (3) At risk [...] gallop, S1+ S2 No S3 or S4 [place].. Gastrointestinal: Soft, Non-tender, Non-distended, Normal bowel sounds. [...] (FEB 05) Radiology Results (Last 48 hours) [id number] -- 02/05/2019 10:21 MRI Spine Cervical WO [...] cord from the cervicomedullary junction to the C4-R1vfrot. There is mild enhancement of the cord. [...] broad-based posterior disc bulging at C4-C5. At C6-S4jugdb is a central to left paracentral disc [...]
--- OUTSIDE RECORDS SUMMARY | 2024-11-16 15:00 | XMS_ITS | Encounter Summary ---
Author Organization [employer] ([place], [place], [place], [place]) Address [address] [place] [address] Care Team Providers Care Geriatric Nurse Assistant Name Role Phone Unavailable Primary Care Provider Unavailabl e Encounter Details Date Type Department Care Team (Late st Contact Info) Description 02/06/2019 Transcribed Document [facility] [place] Family Medicine [facility] [place] [address] ProviderYusuf MD [facility] [place] [address] Social History Tobacco Use Types [...] - Historical ProviderMD - 02/06/2019 3:18 PM CHECK AIRMAN Treatment Intervention, OT Entered On: 02/08/2019 13:07 [...] : 02/05/2019 10:21 Co-treated by, OT : after school program assistant (MOBILE HOME INSTALLER) Personal Devices : Personal Devices Glasses Assistive [...] RD FRENCH COTA - 02/08/2019 12:59 EST Sail Repair Person Goals, OT Grooming LTG Grid Goal #1 [...] rehabilitation RD FRENCHMAGDY - 02/08/2019 12:59 EST [place] OT Charges OT Ther Activities Ea 15 Min : 2 ELEANOR FRENCHMAGDY GASCA - 02/08/2019 12:59 EST documented in this encounter Plan of Treatment Not on file documented as of this encounter Visit Diagnoses Not on filedocumented in this encounter
--- OUTSIDE RECORDS SUMMARY | 2024-11-16 15:00 | XMS_ITS | Encounter Summary ---
Author Organization [employer] ([place], [place], [place], [place]) Address [address] [place] [address] Care Team Providers Care Leather Toggler Name Role Phone Unavailable Primary Care Provider Unavailabl e Encounter Details Date Type Department Care Team (Late st Contact Info) Description 02/06/2019 Transcribed Document [facility] [place] Family Medicine [facility] [place] [address] ProviderYusuf MD [facility] [place] [address] Social History Tobacco Use Types [...] - Historical ProviderMD - 02/06/2019 2:40 PM ASSET PROTECTION SPECIALIST Patient: FRANKY SCOTT Age: 74 years Sex: [...]
--- OUTSIDE RECORDS SUMMARY | 2024-11-16 15:00 | XMS_ITS | Encounter Summary ---
Author Organization [employer] ([place], [place], [place], [place]) Address [address] [place] [address] Care Team Providers Care Pharmacy Technology Instructor Name Role Phone Unavailable Primary Care Provider Unavailabl e Encounter Details Date Type Department Care Team (Late st Contact Info) Description 02/05/2019 Transcribed Document [facility] Radiology 1 [place] [address] Anne Peters MD [address] [place] [address] [address] [place] [id number] Social History Tobacco Use Types Packs/Day Years [...] 02/05/[address] Johan Sue neurology [facility] Chief complaint bilateral upper and lower [...] Q4H, PRN: Nausea heparin: 5,000 Units, SubCutaneous, [id number] hydrALAZINE: 5 mg, IV Push, Q4H, PRN: Hypertension morphine: 2 mg, IV Push, Q2H, PRN: Pain (Severe 7-10), No qualifying data available , Medications (8) Active Scheduled: (2) famotidine 20 mg tab 20 mg 1 Tab, Oral, Q12H heparin 5,000 Units, SubCutaneous, Z53ATpt Continuous: (0) PRN: (6) acetaminophen 325 mg [...] gallop, S1+ S2 No S3 or S4 [place].. Gastrointestinal: Soft, Non-tender, Non-distended, Normal bowel sounds. [...]
--- OUTSIDE RECORDS SUMMARY | 2024-11-16 15:00 | XMS_ITS | Encounter Summary ---
Author Organization [employer] ([place], [place], [place], [place]) Address [address] [place] [address] Care Team Providers Care Dinkey Engine Operator Name Role Phone Unavailable Primary Care Provider Unavailabl e Encounter Details Date Type Department Care Team (Late st Contact Info) Description 02/06/2019 Transcribed Document [facility] [place] [address] [place] [address] ProviderYusuf MD [facility] [address] Social History Tobacco Use Types [...] - Historical ProviderMD - 02/06/2019 5:00 AM TISSUE RECOVERY TECHNICIAN Chart Check - Review Order Profile Entered On: 02/06/2019 4:09 EST Performed On: 02/06/2019 5:00 EST by Aicha Logan, RN Chart Check Powerplans Initiated/Discontinued as Appropriate : Yes All Active Orders Reviewed : Yes Aicha Logan RN - 02/06/2019 4:09 EST Electronically signed by Lillian [facility] Conversion Clinical Research Technician Cerner at 07/07/2022 9:53 PM CDT documented in this encounter Plan of Treatment Not on file documented as of this encounter Visit Diagnoses Not on filedocumented in this encounter
--- OUTSIDE RECORDS SUMMARY | 2024-11-16 15:00 | XMS_ITS | Encounter Summary ---
Author Organization [employer] ([place], [place], [place], [place]) Address [address] [place] [address] Care Team Providers Care Product Specialist Name Role Phone Unavailable Primary Care Provider Unavailabl e Encounter Details Date Type Department Care Team (Late st Contact Info) Description 02/08/2019 Transcribed Document [facility] [facility] [place] [address] ProviderYusuf MD [facility] [place] [address] Social History Tobacco Use Types [...] - Historical ProviderMD - 02/08/2019 5:00 AM CHEESE SPRAYER Chart Check - Review Order Profile [...]
--- OUTSIDE RECORDS SUMMARY | 2024-11-16 15:00 | XMS_ITS | Encounter Summary ---
Author Organization [employer] ([place], [place], [place], [place]) Address [address] [place] [address] Care Team Providers Care Cheese Blender Name Role Phone Unavailable Primary Care Provider Unavailabl e Encounter Details Date Type Department Care Team (Late st Contact Info) Description 02/06/2019 Transcribed Document [facility] [place] [facility] [place] [address] ProviderYusuf MD [facility] [place] [address] Social History Tobacco Use Types [...] - Historical ProviderMD - 02/06/2019 2:00 AM CINEMA OR THEATRE MANAGER Landscaping And Groundskeeping Laborer Details Entered On: 02/06/2019 1:49 EST Performed [...] Aicha Logan, RN - 02/06/2019 1:49 EST documented in this encounter Plan of Treatment Not on file documented as of this encounter Visit Diagnoses Not on filedocumented in this encounter
--- OUTSIDE RECORDS SUMMARY | 2024-11-16 15:00 | XMS_ITS | Encounter Summary ---
Author Organization [employer] ([place], [place], [place], [place]) Address [address] [place] [address] Care Team Providers Care Teletype Mechanic Name Role Phone Unavailable Primary Care Provider Unavailabl e Encounter Details Date Type Department Care Team (Late st Contact Info) Description 02/06/2019 Transcribed Document [facility] [place] Family Medicine [facility] [place] [address] ProviderYusuf MD [facility] [place] [address] Social History Tobacco Use Types [...] - Historical ProviderMD - 02/06/2019 9:[address] LIGHT SERVICER UM Authorization Entered On: 02/06/2019 9:20 EST Performed On: 02/06/2019 9:20 EST by VALENTINA GOODE Rn-Utilization Review Primary Insurance Authorization Authorization and Policy Numbers : Insurance 1 Health Plan: MEDICARE Policy Number: [id number] Authorization Number: Insurance 2 Health Plan: [employer] [place] Policy Number: [id number] Authorization Number: Insurance Primary Name : MEDICARE Policy Number: [id number] [employer] [place] [employer] [place] Policy Number: [id number] Historical Authorization Comments-Primary : No Authorization Comments Found VALENTINA GOODE Rn-Utilization Review - 02/06/2019 9:20 EST Electronically signed by Lillian [facility] Conversion Correctional Officer Captain Cerner at 07/07/2022 9:58 PM CDT documented in this encounter Plan of Treatment Not on file documented as of this encounter Visit Diagnoses Not on filedocumented in this encounter
--- OUTSIDE RECORDS SUMMARY | 2024-11-16 15:00 | XMS_ITS | Encounter Summary ---
Author Organization [employer] ([place], [place], [place], [place]) Address [address] [place] [address] Care Team Providers Care Assembly Worker Name Role Phone Unavailable Primary Care Provider Unavailabl e Encounter Details Date Type Department Care Team (Late st Contact Info) Description 02/06/2019 Transcribed Document [facility] [place] Family Medicine [facility] [place] [address] ProviderYusuf MD [facility] [place] [address] Social History Tobacco Use Types [...] - Yusuf ProviderMD - 02/06/2019 11:41 AM HEEL FINISHER Initial Discharge Planning Entered On: 02/06/2019 11:49 EST Performed On: 02/06/2019 11:41 EST by DELORIS MCDONALD, Hand Brush Filler Initial Assessment I Previously Documented Living Environment [...] Patient's Home Caregiver Medical Durable Power of Outpatient Phlebotomist Name : no Legal Guardian : No Is Guardianship Needed : No DELORIS MCDONALD Hand Brush Filler - 02/06/2019 11:41 EST Initial Assessment II Sensory and Motor Deficits : Weakness Current Home Treatments and Equipment : Cane, Walker DELORIS MCDONALD Hand Brush Filler - 02/06/2019 11:41 EST Discharge Needs I [...] Home Health, Short term rehabilitation DELORIS MCDONALD Hand Brush Filler - 02/06/2019 11:41 EST Narrative Note Narrative Note : Talked w/ this 74 yr old W F sent as a direct admit from Dr Boyer's neurology office. Pt has tingling and weakess of both upper and lower extremities as well as inability to control bowel or bladder. Brain imaging revealed mye;opathy and pt admitted for further workup. [facility], is active. Just recently started using [...] RRS is low @ 38. DELORIS MCDONALD Hand Brush Filler - 02/06/2019 11:41 EST documented in this encounter Plan of Treatment Not on file documented as of this encounter Visit Diagnoses Not on filedocumented in this encounter
--- OUTSIDE RECORDS SUMMARY | 2024-11-16 15:00 | XMS_ITS | Encounter Summary ---
Author Organization [employer] ([place], [place], [place], [place]) Address [address] [place] [address] Care Team Providers Care Plating Engineer Name Role Phone Unavailable Primary Care Provider Unavailabl e Encounter Details Date Type Department Care Team (Late st Contact Info) Description 02/05/2019 Transcribed Document [facility] [place] Family Medicine [facility] [place] [address] ProviderYusuf MD [facility] [place] [address] Social History Tobacco Use Types [...] - Yusuf ProviderMD - 02/05/2019 10:39 AM BILINGUAL MEDICAL RECEPTIONIST Swallow Evaluation Entered On: 02/05/2019 12:20 EST Performed On: 02/05/2019 12:16 EST by KENNA KIM WEDGER MACHINE General Information Visit Type, WEDGER MACHINE : Initial evaluation KENNA KIM SLP - 02/05/2019 12:16 EST Patient Orders : Consult to Speech Language Pathology for Swallow Eval -111 Start: 02/05/19 10:39:00 EST, Routine, For Swallow Eval and Treat - BASHIR RAYMOND MD-INT Admission Date : Admission Date/Time: 02/05/19 10:21:00 KENNA KIM, ASHER - 02/05/2019 12:21 EST Medical Chart Reviewed, WEDGER MACHINE : Yes KENNA KIM SLP - 02/05/2019 12:16 EST Personal Devices : Personal Devices Glasses Assistive Devices : Assistive Devices No Devices Recorded Active Diagnoses : 02/05/2019 12:00 Disease of spinal cord, unspecified KENNA KIM SLP - 02/05/2019 12:21 EST Therapy Diagnosis, WEDGER MACHINE : normal oropharyngeal skills Previous Swallow Precautions : no previous ST in EMR Diet/Intake Prior to Current Admission : reg/thin Diet/Intake During Current Admission : reg/thin Intubation Comment, WEDGER MACHINE : n/a KENNA KIM SLP - 02/05/2019 [...] 12:16 EST General Status Patient Received Status, WEDGER MACHINE : Long sitting in bed Patient Left Status, WEDGER MACHINE : Long sitting in bed KENNA KIM [...] Oral Mechanism for Daily Living : Intact WEDGER MACHINE Cough : Strong Facial Appearance: : Symmetrical [...] these records, Dr. Brunson sent her to [facility]. ST is asked to see for [...] - 02/05/2019 12:21 EST Therapy Indication Assessment WEDGER MACHINE Indicated : No WEDGER MACHINE Not Indicated : At prior level of function KENNA KIM SLP - 02/05/2019 12:21 EST Education Barriers To Learning : None evident Individuals Taught : Patient, Spouse KENNA KIM SLP - 02/05/2019 12:21 EST WEDGER MACHINE Education Assessment Grid 1 Aspiration : Verbalizes understanding Diet Recommendation : Verbalizes understanding KENNA KIM SLP - 02/05/2019 12:21 EST [place] WEDGER MACHINE Charges Evaluation Swallowing Function : 1 KENNA KIM, WEDGER MACHINE - 02/05/2019 12:21 EST Anticipated Discharge Needs, WEDGER MACHINE Anticipated Discharge to : Home, independently, Home, with home health Recommend Continued Therapy at Discharge : No KENNA KIM, ASHER - 02/05/2019 12:21 EST Electronically signed by Lillian [facility] Conversion Enterprise Account Executive Cerner at 07/07/2022 10:01 PM CDT documented in this encounter Plan of Treatment Not on file documented as of this encounter Visit Diagnoses Not on filedocumented in this encounter
[2024-11-16] MEDS: ERTAPENEM SODIUM 1 GM VIAL IM (15:17)
[2024-11-16 15:24] VITALS: BP 143/99; PULSE 112; RESP 18; TEMP 36.8; O2SAT 95
== END 2024-11-16 23:59 | disposition home or self-care (01) ==
LOC: INF 14:56
PROVIDERS: PCP Family Medicine; Visit Provider Family Medicine
DX: N39.0 Urinary tract infection, site not specified (principal)
CPT/HCPCS: 96372; J1335

== ENCOUNTER 2024-11-17 14:29 | Outpatient (CLI) | payer MEDICARE, OTHER, SELFPAY ==
--- OUTSIDE RECORDS SUMMARY | 2024-10-17 06:15 | XMS_ITS ---
Author Organization [facility] Address [address] [place] [phone] Care Team Providers Care Stone Operator Name Role Phone Reece Santiagoian Primary Care [...] 10/17/2024 Encounters Encounter Location Date Provider Diagnosis [facility] [address] [place], [place] [phone] 10/17/2024 Jensen Santiago Chronic UTI N39.0 ; [...] * Lan DEWITTOB: 7 (79 yo F)Acc No.[id number]:10/17/2024 Progress Notes Patient: Kelli THOMAS Provider: Kacie Santiago M.D. :1945 A ge:79 Y S ex:Female Date:10/17/2024 Address:[address] [place] [address] KHOI JOSE, [id number] Subjective: * Chief Complaints: * 1 . [...] G 2211 Complex e/[place], [address] Urinalysis, no micro, 1036F TOBACCO NON- USER, G8783 BP SCR PRFRM RCMDD DEFIND SCR INTVL, G8752 MOST RECENT SYSTOLIC BP < 140MM HG, G8754 MOST RECENT DIASTOLIC BP < 90MM HG * Follow Up: v ia phone to report test results * Images: Billing Information: * Visit Code: 38189 Office Visit, Est Pt., Level 3. * Procedure Codes: G2211 Complex e/[place]. [address] Urinalysis, no micro. 1036F TOBACCO NON-USER. G8783 BP SCR PRFRM RCMDD DEFIND SCR INTVL. G8752 MOST RECENT SYSTOLIC BP < 140MM HG. G8754 MOST RECENT DIASTOLIC BP < 90MM HG. * Electronic signature of Valencia Santiago MD on 11/17/2024 at 02:33 PM EDT Sign off status: Pending * Provider: Kacie Santiago M.D. Date: 10/17/2024 Generated for Drew reza/Shanelle/eTransmitting on: 11/17/2024 02:33 PM EDT History and Physical Notes * [...]
--- OUTSIDE RECORDS SUMMARY | 2024-11-05 10:45 | XMS_ITS ---
Author Organization [facility] Address [address] [place] [id number] Care Team Providers Care Supervisor Commercial Fish Hatchery Name Role Phone Jensen Santiago Primary Care [...] Interpretation:sensitive Performing Lab: Notes/Report: Test performed by [employer] [address] [place] [address] , [address], [place] [address] Danilo Duran MD, Design Engineer Agricultural Equipment CLIA: [id number] Specimen Source Urine - Cath Culture, Urine See Below See Microbiol ogy Report Escherichia coli ESBL 50,000-100,000 CFU /ml Escherichia coli ESBL This isolate is a confirmed ESBL (Extended Spectrum Beta-Lactamase) television news producer and should be considered clinically resistant [...] 11/05/2024 Encounters Encounter Location Date Provider Diagnosis [facility] [address] [place] [id number] 11/05/2024 Jensen Santiago Chronic UTI N 39.0 [...] * Jaci SCOTTenDOB: 7 (79 yo F)Acc No.[id number]:11/05/2024 Progress Notes Patient: Kelli THOMAS Provider: Kacie Santiago M.D. :1945 A ge:79 Y S ex:Female Date:11/05/2024 Address:[facility] [place], [id number] Subjective: * Chief Complaints: * * HPI: [...] G 2211 Complex e/[place], [address] Urinalysis, no micro, 1036F TOBACCO NON- USER, G8783 BP SCR PRFRM RCMDD DEFIND SCR INTVL, G8752 MOST RECENT SYSTOLIC BP < 140MM HG, G8754 MOST RECENT DIASTOLIC BP < 90MM HG * Follow Up: v ia phone to report test results * Images: Billing Information: * Visit Code: 26538 Office Visit, Est Pt., Level 3. * Procedure Codes: G2211 Complex e/[place]. [address] Urinalysis, no micro. 1036F TOBACCO NON-USER. G8783 BP SCR PRFRM RCMDD DEFIND SCR INTVL. G8752 MOST RECENT SYSTOLIC BP < 140MM HG. G8754 MOST RECENT DIASTOLIC BP < 90MM HG. * Electronic signature of Valencia Santiago MD on 11/17/2024 at 02:32 PM EDT Sign off status: Pending * Provider: Kacie Santiago M.D. Date: 0 11/05/2024 Generated for Drew reza/Shanelle/Chetitting on: 0 11/17/2024 02:32 PM EDT History and Physical Notes * [...]
--- OUTSIDE RECORDS SUMMARY | 2024-11-13 06:30 | XMS_ITS ---
Author Organization [facility] Address [address] [facility] [address] [place] [phone] Care Team Providers Care Licensed Prosthetist/Orthotist Name Role Phone Jensen Santiago Primary Care Provider [phone] Allergies Allergen (clinical drug ingredient) Drug/Non Drug [...] Interpretation: Performing Lab: Notes/Report: Test performed by [employer], [employer] [address] [place] [address] [place] [address] Danilo Duran MD, Firmware Developer [facility]: [id number] Specimen Source Urine - Cath Culture, Urine See Below See Microbiol ogy Report Klebsiella pneumoniae ESBL 25,000-50,000 CFU/ml Klebsiella pneumoniae ESBL This isolate is a confirmed ESBL (Extended Spectrum Beta-Lactamase) new product trainer and should be considered clinically resistant to [...] 11/13/2024 Encounters Encounter Location Date Provider Diagnosis [facility] [address] [facility] [address] [place], [place] [id number] 11/13/2024 Jensen Santiago Chronic UTI N39.0 ; [...] * Jaci SCOTTenDOB: 7 (79 yo F)Acc No.[id number]:11/13/2024 Progress Notes Patient: Kelli THOMAS Provider: Kacie Santiago M.D. :1945 A ge:79 Y S ex:Female Date:11/13/2024 Address:[address] [place] [address] [place], [id number] Subjective: * Chief Complaints: * 1 . [...] G 2211 Complex e/[place], [address] Urinalysis, no micro, [address]83[address] CAPILLARY BLOOD DRAW, 16798 CBC WITH AUTO DIFF * Follow Up: v ia phone to report test results * Images: Billing Information: * Visit Code: 03888 Office Visit, Est Pt., Level 4. * Procedure Codes: G2211 Complex e/[place]. [address] Urinalysis, no micro. [address]228 CAPILLARY BLOOD DRAW. 35815 CBC WITH AUTO DIFF. * Electronic signature of Valencia Santiago MD on 11/17/2024 at 02:32 PM EDT Sign off status: Pending * Provider: Kacie Santiago M.D. Date: 0 11/13/2024 Generated for Drew reza/Shanelle/Chetitting on: 11/17/2024 02:32 PM EDT History and Physical [...]
--- OUTSIDE RECORDS SUMMARY | 2024-11-16 05:03 | XMS_ITS ---
Author Organization [facility] Address [address] [facility] [address] [place] [phone] Care Team Providers Care Box Liner Name Role Phone Jensen Santiago Primary Care Provider REASON FOR VISIT abnormal urine cx Medications Medication SIG (Take, Route, Fr equency, Duration) Notes Start Date End Date Status Ertapenem Sodium 1 GM 1 gram IM Injectio n daily; Duration: 5 days 11/16/2024 Active Encounters Encounter Location Date Provider Diagnosis [facility] [address] [facility] [address] [place] [id number] 11/16/2024 Jensen Santiago Acute UTI N39.0 Assessments Encounter Date Diagnosis (ICD Code) Assessment Notes Treatment Notes Treatment Clinical Notes Section Notes 11/16/2024 Acute UTI (ICD-10 - N39.0) Plan Of Treatment Medication Medication Name Sig Start Date Stop Date Notes Ertapenem Sodium 1 GM 1 gram IM Injectio n daily; Duration: 5 days 11/16/2024 Progress Notes * Lan DEWITTOB: 7 (79 yo F)Acc No.[id number]:11/16/2024 Patient: Kelli THOMAS :1945 A ge:79 Y S ex:Female Address:[address] [place], [address] * Refills Start Ertapenem Sodium Solution Reconstituted, 1 GM, Injection, 1 gram IM, daily, 5 days Subjective: * Chief Complaints: * A bnormal urine cx * Medical History: * Surgical History: * Hospitalization/Major Diagno stic Procedure: * Medications: Objective: * Vitals: * Physical Examination: Assessment: * Assessment: 1. Claudy lee UTI - N39.0 (Primary) Plan: * Treatment: * Procedure Codes: * true * Date: Generated for Drew reza/Shanelle/eTquentinsmitting on: 0 11/17/2024 02:35 PM EDT
--- OUTSIDE RECORDS SUMMARY | 2024-11-17 14:32 | XMS_ITS | Encounter Summary ---
Author Organization [employer] ([place], [place], [place], [place]) Address [address] [place] [address] Care Team Providers Care Knock Out Hand Name Role Phone Unavailable Primary Care Provider Unavailabl e Encounter Details Date Type Department Care Team (Late st Contact Info) Description 02/13/2019 Transcribed Document [facility] [place] Family Medicine [facility] [place] [address] ProviderYusuf MD [place] [address] Social History Tobacco Use Types [...] - Historical ProviderMD - 02/13/2019 4:17 PM SAUSAGE COOKER On Going Discharge Planning Entered On: 02/13/2019 [...] Patient chose [facility] for STR. CM notified that patient has been approved for admission. Dr. Bales in to speak with patient, family and CM. Will order diagnostic scand for tomorrw and plan on admission to [facility] on , 02/15. Historical Progress Note : [...] prefer STR. Patient's first choice would be [facility] and second choice is [facility]. Referrals sent through [facility]. CM will continue to follow. Neva Cotto RN - 02/13/19 09:37:24 MICHAELA reviewed chart. Neuro consult and following, MRI Cervical Thor. and Lumbar Spine. Discussed DCP with pt including HH vs Rehab. CM Will continue to follow for d/c needs. ALECIA GOMEZ RN-Closing Manager - 02/09/19 14:52:38 CM reviewed chart. [...] to follow for d/c needs. ALECIA GOMEZ, JONATAN-Closing Manager - 02/08/19 09:16:23 CM reviewed chart. RRS 38. Cm to room to met pt. Pt spouse in room. spouse stated that pt is off floor for Xray. Spouse stated that DCP is to discharge home with family. Possible hh if a need. CM will continue to follow for d/c needs. ALECIA GOMEZ RN-Closing Manager - 02/07/19 09:05:36 Neva Cotto RN - 02/13/2019 16:17 EST Electronically signed by Lillian [facility] Conversion Occupational Therapy Director Cerner at 07/07/2022 9:59 PM CDT documented in this encounter Plan of Treatment Not on file documented as of this encounter Visit Diagnoses Not on filedocumented in this encounter
--- OUTSIDE RECORDS SUMMARY | 2024-11-17 14:32 | XMS_ITS | Encounter Summary ---
Author Organization [employer] ([place], [place], [place], [place]) Address [address] [place] [address] Care Team Providers Care Commuter Train Operator Name Role Phone Unavailable Primary Care Provider Unavailabl e Encounter Details Date Type Department Care Team (Late st Contact Info) Description 02/12/2019 Transcribed Document [facility] [address] [facility] [address] [place] [address] Fernando Dotson MD [address] [facility] [address] [place] [address] Social History Tobacco Use Types [...] for transverse myelitis. She was admitted to [facility] on 02/05/2019 under the medicine service [...] 5/5 d, 5/5 b, 5/5 t, 5/5 claims administrator rue 5/5 d, 5/5 b, 5/5 t, 5/5 claims administrator lle 4+/5 hf, 4+/5 ke, 4+/5 df, [...] CLOUDY2 (Abnormal) 02/11/2019 22:29 EST Urine Specific [place] 1.020 02/11/2019 22:29 EST Urine pH Dipstick [...]
--- OUTSIDE RECORDS SUMMARY | 2024-11-17 14:32 | XMS_ITS | Encounter Summary ---
Author Organization [employer] ([place], [place], [place], [place]) Address [address] [place] [address] Care Team Providers Care Lining Repairer Name Role Phone Unavailable Primary Care Provider Unavailabl e Encounter Details Date Type Department Care Team (Late st Contact Info) Description 02/12/2019 Transcribed Document [facility] Radiology [address] [place] [address] Anne Peters MD [address] [place] [address] [address] [id number] Social History Tobacco Use Types Packs/Day Years [...] 02/05/[address] Johan Sue [facility]y [facility] Chief complaint bilateral upper and lower extremity [...] At risk for sleep apnea / IMO [id number] / Confirmed, Active Problems (3) At risk [...] gallop, S1+ S2 No S3 or S4 [place].. Gastrointestinal: Soft, Non-tender, Non-distended, Normal bowel sounds. [...]
--- OUTSIDE RECORDS SUMMARY | 2024-11-17 14:32 | XMS_ITS | Encounter Summary ---
Author Organization [employer] ([place], [place], [place], [place]) Address [address] [place] [address] Care Team Providers Care Roofing Laborer Name Role Phone Unavailable Primary Care Provider Unavailabl e Encounter Details Date Type Department Care Team (Late st Contact Info) Description 02/13/2019 Transcribed Document [facility] [place] Family Medicine [facility] [place] [address] ProviderYusuf MD [facility] [place] [address] Social History Tobacco Use Types [...] - Historical ProviderMD - 02/13/2019 5:00 PM WOMEN SPECIALIST Chart Check - Review Order Profile Entered On: 02/13/2019 19:19 EST Performed On: 02/13/2019 17:00 EST by Giselle Stanley RN Chart Check All Active Orders Reviewed : Yes Giselle Stanley RN - 02/13/2019 19:19 EST Electronically signed by Onel Snyder Conversion Cement Mason [employer] Streets Cerner at 07/07/2022 9:57 PM CDT documented in this encounter Plan of Treatment Not on file documented as of this encounter Visit Diagnoses Not on filedocumented in this encounter
--- OUTSIDE RECORDS SUMMARY | 2024-11-17 14:32 | XMS_ITS | Encounter Summary ---
Author Organization [employer] ([place], [place], [place], [place]) Address [address] [place] [address] Care Team Providers Care Criminal Investigator Name Role Phone Unavailable Primary Care Provider Unavailabl e Encounter Details Date Type Department Care Team (Late st Contact Info) Description 02/13/2019 Transcribed Document [facility] [place] [address] [place] [address] ProviderYusuf MD [facility] [place] [address] Social History Tobacco Use Types [...] - Historical ProviderMD - 02/13/2019 5:00 AM CONTINUOUS MINER Chart Check - Review Order Profile Entered On: 02/13/2019 6:10 EST Performed On: 02/13/2019 5:00 EST by JAYA [place] REGISITERED_NURSE Chart Check Powerplans Initiated/Discontinued as Appropriate : Yes All Active Orders Reviewed : Yes JAYA WASHINGTON REGISITERED_NURSE - 02/13/2019 6:10 EST Electronically signed by Lillian [facility] Conversion Licensing Representative Cerner at 07/07/2022 9:56 PM CDT documented in this encounter Plan of Treatment Not on file documented as of this encounter Visit Diagnoses Not on filedocumented in this encounter
--- OUTSIDE RECORDS SUMMARY | 2024-11-17 14:32 | XMS_ITS | Encounter Summary ---
Author Organization [employer] ([place], [place], [place], [place]) Address [address] [place] [address] Care Team Providers Care Investigator Vice Name Role Phone Unavailable Primary Care Provider Unavailabl e Encounter Details Date Type Department Care Team (Late st Contact Info) Description 02/12/2019 Transcribed Document [facility] Radiology [address] [place] [address] Claudio Allen MD [facility] [place] [address] Social History Tobacco Use Types [...] few weeks prior to her admission at [facility], she noticed progressive weakness to the point [...] rate and rhythm. ABDOMEN: Soft and nontender. SENIOR COST ACCOUNTANT: Demonstrate ability to move both upper and [...] the patient were comfortable with the discussion. /[id number] Christiano Allen MD ROONEY/AQ / ROONEY / MODL /[id number] CC: MD Johan Leone MD Haider Abbas, MD Imran A Khan, MD Electronically signed by [facility], [facility] Conversion Manager Community Outreach Cerner at 07/07/2022 9:59 PM CDT documented in this encounter Plan of Treatment Not on file documented as of this encounter Visit Diagnoses Not on filedocumented in this encounter
--- OUTSIDE RECORDS SUMMARY | 2024-11-17 14:32 | XMS_ITS | Encounter Summary ---
Author Organization [employer] ([place], [place], [place], [place]) Address [address] [place] [address] Care Team Providers Care Dyno Technician Name Role Phone Unavailable Primary Care Provider Unavailabl e Encounter Details Date Type Department Care Team (Late st Contact Info) Description 02/12/2019 Transcribed Document [facility] Family Medicine [address] [place] [address] ProviderYusuf MD [facility] [place] [address] Social History Tobacco Use Types [...] - Historical ProviderMD - 02/12/2019 2:00 AM BIOLOGICAL SCIENTIST Tin Recovery Worker Details Entered On: 02/12/2019 4:19 EST Performed [...]
--- OUTSIDE RECORDS SUMMARY | 2024-11-17 14:32 | XMS_ITS | Encounter Summary ---
Author Organization [employer] ([place], [place], [place], [place]) Address [address] [place] [address] Care Team Providers Care Accessioner Name Role Phone Unavailable Primary Care Provider Unavailabl e Encounter Details Date Type Department Care Team (Late st Contact Info) Description 02/12/2019 Transcribed Document [facility] [place] [address] [place] [address] ProviderYusuf MD [facility] [place] [address] Social History Tobacco Use Types [...] - Historical ProviderMD - 02/12/2019 5:00 PM NETWORK MANAGEMENT SPECIALIST Chart Check - Review Order Profile [...]
--- OUTSIDE RECORDS SUMMARY | 2024-11-17 14:32 | XMS_ITS | Encounter Summary ---
Author Organization [employer] ([place], [place], [place], [place]) Address [address] [place] [address] Care Team Providers Care Community Ambassador Name Role Phone Unavailable Primary Care Provider Unavailabl e Encounter Details Date Type Department Care Team (Late st Contact Info) Description 02/13/2019 Transcribed Document [facility] Radiology 1 [place] [address] Zack Jha MD [address] [place] [address] [address] [place] [id number] Social History Tobacco Use Types Packs/Day Years [...] 02/05/[address] Johan Sue neurology [facility] Chief complaint bilateral upper and [...] gallop, S1+ S2 No S3 or S4 [place].. Gastrointestinal: Soft, Non-tender, Non-distended, Normal bowel sounds. [...] complaint to look for a facility in [place], close to their home. documented in this encounter Plan of Treatment Not on file documented as of this encounter Visit Diagnoses Not on filedocumented in this encounter
--- OUTSIDE RECORDS SUMMARY | 2024-11-17 14:32 | XMS_ITS | Encounter Summary ---
Author Organization [employer] ([place], [place], [place], [place]) Address [address] [place] [address] Care Team Providers Care Sample Sewer Name Role Phone Unavailable Primary Care Provider Unavailabl e Encounter Details Date Type Department Care Team (Late st Contact Info) Description 02/13/2019 Transcribed Document [facility] [place] [facility] [place] [address] ProviderYusuf MD [facility] [place] [address] Social History Tobacco Use Types [...] - Historical ProviderMD - 02/13/2019 5:04 PM TONG CARRIER Patient: FRANKY SCOTT Age: 74 Years Sex: [...] 1 Tab, Oral, Daily Electronically signed by [facility], [facility] Conversion Perforator Loader Cerner at 07/07/2022 9:59 PM CDT documented in this encounter Plan of Treatment Not on file documented as of this encounter Visit Diagnoses Not on filedocumented in this encounter
--- OUTSIDE RECORDS SUMMARY | 2024-11-17 14:33 | XMS_ITS | Encounter Summary ---
Author Organization [employer] ([place], [place], [place], [place]) Address [address] [place] [address] Care Team Providers Care Annual Giving Director Name Role Phone Unavailable Primary Care Provider Unavailabl e Encounter Details Date Type Department Care Team (Late st Contact Info) Description 02/14/2019 Transcribed Document [facility] [facility] [place] [address] ProviderYusuf MD [facility] [place] [address] Social History Tobacco Use Types [...] - Historical ProviderMD - 02/14/2019 5:00 PM AIRPORT DRIVER Chart Check - Review Order Profile Entered [...]
--- OUTSIDE RECORDS SUMMARY | 2024-11-17 14:33 | XMS_ITS | Encounter Summary ---
Author Organization [employer] ([place], [place], [place], [place]) Address [address] [place] [address] Care Team Providers Care Food Science Professor Name Role Phone Unavailable Primary Care Provider Unavailabl e Encounter Details Date Type Department Care Team (Late st Contact Info) Description 02/11/2019 Transcribed Document [facility] [place] [facility] [place] [address] ProviderYusuf MD [facility] [place] [address] Social History Tobacco Use Types [...] - Historical ProviderMD - 02/11/2019 1:30 PM SHOP TEACHER Pain Assessment Entered On: 02/11/2019 15:30 EST [...]
--- OUTSIDE RECORDS SUMMARY | 2024-11-17 14:33 | XMS_ITS | Encounter Summary ---
Author Organization [employer] ([place], [place], [place], [place]) Address [address] [place] [address] Care Team Providers Care Methods Specialist Name Role Phone Unavailable Primary Care Provider Unavailabl e Encounter Details Date Type Department Care Team (Late st Contact Info) Description 02/10/2019 Transcribed Document [facility] Radiology 1 [place] [address] Anne Peters MD [address] [place] [address] [address] [place] [id number] Social History Tobacco Use Types Packs/Day Years [...] discharge Referring physician Dr. Johan Sue neurology [facility] Chief complaint bilateral upper and lower [...] At risk for sleep apnea / IMO [id number] / Confirmed, Active Problems (3) At risk [...] gallop, S1+ S2 No S3 or S4 [place].. Gastrointestinal: Soft, Non-tender, Non-distended, Normal bowel sounds. [...]
--- OUTSIDE RECORDS SUMMARY | 2024-11-17 14:33 | XMS_ITS | Encounter Summary ---
Author Organization [employer] ([place], [place], [place], [place]) Address [address] [place] [address] Care Team Providers Care Senior Oracle Pl Sql Developer Name Role Phone Unavailable Primary Care Provider Unavailabl e Encounter Details Date Type Department Care Team (Late st Contact Info) Description 02/14/2019 Transcribed Document [facility] [place] [facility] [place] [address] ProviderYusuf MD [facility] [place] [address] Social History Tobacco Use Types [...] - Historical ProviderMD - 02/14/2019 2:46 PM WATER RESOURCE MANAGER On Going Discharge Planning Entered On: 02/14/2019 14:52 EST Performed On: 02/14/2019 14:46 EST by Neva Cotto RN Care Management Progress Note Designation of Choice Signed : Yes (Comment: Patient given a list of providers for STR with associated STARS rating. Patient selected [facility]. [Neva Cotto RN - 02/14/2019 15:08 [...] abdomen and pelvis with/out contrast completed. DCP: [facility] spinal cord unit tomorrow. will transport. IM and Choice signed. Historical Progress Note : Patient chose [facility] for STR. CM notified that patient has been approved for admission. Dr. Bales in to speak with patient, family and CM. Will order diagnostic scand for tomorrw and plan on admission to [facility] on , 02/15. Neva Cotto RN [...] prefer STR. Patient's first choice would be [facility] and second choice is [facility]. Referrals sent through [facility]. CM will continue to follow. Neva Cotto RN - 02/13/19 09:37:24 CM reviewed chart. Neuro consult and following, MRI Cervical Thor. and Lumbar Spine. Discussed DCP with pt including HH vs Rehab. CM Will continue to follow for d/c needs. ALECIA GOMEZ, RN-Clinical Application Manager - 02/09/19 14:52:38 CM reviewed chart. [...] to follow for d/c needs. ALECIA GOMEZ, RN-Clinical Application Manager - 02/08/19 09:16:23 CM reviewed chart. RRS 38. Cm to room to met pt. Pt spouse in room. spouse stated that pt is off floor for Xray. Spouse stated that DCP is to discharge home with family. Possible hh if a need. CM will continue to follow for d/c needs. ALECIA GOMEZ, JONATAN-Clinical Application Manager - 02/07/19 09:05:36 Neva Cotto RN - 02/14/2019 15:08 EST Electronically signed by Lillian [facility] Conversion Family Consultant Cerner at 07/07/2022 9:52 PM CDT documented in this encounter Plan of Treatment Not on file documented as of this encounter Visit Diagnoses Not on filedocumented in this encounter
--- OUTSIDE RECORDS SUMMARY | 2024-11-17 14:33 | XMS_ITS | Encounter Summary ---
Author Organization [employer] ([place], [place], [place], [place]) Address [address] [place] [address] Care Team Providers Care Customer Marketing Manager Name Role Phone Unavailable Primary Care Provider Unavailabl e Encounter Details Date Type Department Care Team (Late st Contact Info) Description 02/12/2019 Transcribed Document [facility] [place] [facility] [place] [address] ProviderYusuf MD [facility] [place] [address] Social History Tobacco Use Types [...] - Historical ProviderMD - 02/12/2019 8:56 AM WOUND CARE COORDINATOR Consult Phone Call Documentation Entered On: 02/12/2019 9:20 EST Performed On: 02/12/2019 8:56 EST by Gloria Acosta [facility] Phone Call for Consults Consult Phone Call/Page Attempt : First call Gloria Acosta [facility] - 02/12/2019 9:20 EST Consult Reason : Cervical Myopathy Physician Requesting Consult : BASHIR RAYMOND MD-INT Provider Service Notified Name : Other: Rheumatology Date and Time Call Returned : 02/12/2019 8:56 EST Gloria Acosta [facility] - 02/12/2019 9:17 EST documented in this encounter Plan of Treatment Not on file documented as of this encounter Visit Diagnoses Not on filedocumented in this encounter
--- OUTSIDE RECORDS SUMMARY | 2024-11-17 14:33 | XMS_ITS | Encounter Summary ---
Author Organization [employer] ([place], [place], [place], [place]) Address [address] [place] [address] Care Team Providers Care Tray Service Worker Name Role Phone Unavailable Primary Care Provider Unavailabl e Encounter Details Date Type Department Care Team (Late st Contact Info) Description 02/12/2019 Transcribed Document [facility] [place] Family Medicine [address] [place] [address] ProviderYusuf MD [facility] [place] [address] Social History Tobacco Use Types [...] - Historical ProviderMD - 02/12/2019 5:00 AM SENIOR JAVA ENGINEER Chart Check - Review Order Profile Entered On: 02/12/2019 7:02 EST Performed On: 02/12/2019 5:00 EST by JAYA WASHINGTON REGISITERED_ Chart Check Powerplans Initiated/Discontinued as Appropriate : Yes All Active Orders Reviewed : Yes JAYA WASHINGTON REGISITERED_ - 02/12/2019 7:02 EST Electronically signed by Lillian [facility] Conversion Fashion Illustrator Cerner at 07/07/2022 9:55 PM CDT documented in this encounter Plan of Treatment Not on file documented as of this encounter Visit Diagnoses Not on filedocumented in this encounter
--- OUTSIDE RECORDS SUMMARY | 2024-11-17 14:33 | XMS_ITS | Encounter Summary ---
Author Organization [employer] ([place], [place], [place], [place]) Address [address] [place] [address] Care Team Providers Care Ceramic Worker Name Role Phone Unavailable Primary Care Provider Unavailabl e Encounter Details Date Type Department Care Team (Late st Contact Info) Description 02/10/2019 Transcribed Document [facility] [place] [facility] [place] [address] ProviderYusuf MD [facility] [place] [address] Social History Tobacco Use Types [...] - Historical ProviderMD - 02/10/2019 2:00 AM CORPORATE LEGAL ASSISTANT Fabrication Operator Details Entered On: 02/10/2019 2:04 EST [...] Ruth Mueller RN-Resource - 02/10/2019 2:04 EST Electronically signed by Onel Snyder Conversion Thermal Surfacing Machine Operator Cerner at 07/07/2022 9:53 PM CDT documented in this encounter Plan of Treatment Not on file documented as of this encounter Visit Diagnoses Not on filedocumented in this encounter
--- OUTSIDE RECORDS SUMMARY | 2024-11-17 14:33 | XMS_ITS | Encounter Summary ---
Author Organization [employer] ([place], [place], [place], [place]) Address [address] [place] [address] Care Team Providers Care Welt Edge Rounder Name Role Phone Unavailable Primary Care Provider Unavailabl e Encounter Details Date Type Department Care Team (Late st Contact Info) Description 02/14/2019 Transcribed Document [facility] [place] [facility] [place] [address] ProviderYusuf MD [facility] [place] [address] Social History Tobacco Use [...] - Historical ProviderMD - 02/14/2019 2:00 AM FLIGHT CREW SCHEDULER Can Intake Worker Details Entered On: 02/14/2019 6:40 EST Performed [...]
--- OUTSIDE RECORDS SUMMARY | 2024-11-17 14:33 | XMS_ITS | Clinical Summary ---
Author Organization [facility] Address [address] [place] [address] Care Team Providers Care Petroleum Products District Supervisor Name Role Phone Jensen Santiago MD Primary Care Provider [phone] Allergies Active Allergy Reactions Criticality Noted Date [...] or (1 - 1-dose 75+ series) 2022 [id number] Vaccine (2023- season) 2023 12/16/2021, 07/31/2021, 01/28/2021, [...] age to complete this topic Insurance MEDICARE [facility] Care Teams Petroleum Products District Supervisor Relationship Specialty Start Date End Date Jensen Santiago MD [address] [place] [phone] PCP - General 12/11/20
--- OUTSIDE RECORDS SUMMARY | 2024-11-17 14:33 | XMS_ITS | Encounter Summary ---
Author Organization [employer] ([place], [place], [place], [place]) Address [address] [place] [address] Care Team Providers Care Senior Java Programmer Analyst Name Role Phone Unavailable Primary Care Provider Unavailabl e Encounter Details Date Type Department Care Team (Late st Contact Info) Description 02/14/2019 Transcribed Document [facility] [place] [facility] [place] [address] ProviderYusuf MD [facility] [place] [address] Social History Tobacco Use Types [...] - Historical ProviderMD - 02/14/2019 11:30 AM MEDIA PRODUCTION OPERATOR Attempt to Treat, OT Entered On: 02/14/2019 [...]
--- OUTSIDE RECORDS SUMMARY | 2024-11-17 14:33 | XMS_ITS | Encounter Summary ---
Author Organization [employer] ([place], [place], [place], [place]) Address [address] [place] [address] Care Team Providers Care Personal Lines Underwriter Name Role Phone Unavailable Primary Care Provider Unavailabl e Encounter Details Date Type Department Care Team (Late st Contact Info) Description 02/11/2019 Transcribed Document [facility] Radiology 1 [place] [address] Anne Peters MD [address] [place] [address] [address] [place] [id number] Social History Tobacco Use Types Packs/Day Years [...] 02/05/[address] Johan Sue neurology [facility] Chief complaint bilateral upper and lower [...] At risk for sleep apnea / IMO [id number] / Confirmed, Active Problems (3) At risk [...] gallop, S1+ S2 No S3 or S4 [place].. Gastrointestinal: Soft, Non-tender, Non-distended, Normal bowel sounds. [...]
--- OUTSIDE RECORDS SUMMARY | 2024-11-17 14:33 | XMS_ITS | Encounter Summary ---
Author Organization [employer] ([place], [place], [place], [place]) Address [address] [place] [address] Care Team Providers Care Trimmer And Borer Machine Operator Name Role Phone Unavailable Primary Care Provider Unavailabl e Encounter Details Date Type Department Care Team (Late Contact Info) Description 02/12/2019 Transcribed Document [facility] [place] [facility] [place] [address] ProviderYusuf MD [facility] [place] [address] Social History Tobacco Use Types [...] - Historical ProviderMD - 02/12/2019 5:20 PM INVESTMENT BANKING MANAGER Patient: FRANKY SCOTT Age: 74 Years Sex: [...] Tab, Oral, Daily Electronically signed by Lillian, [facility] Conversion Paste Up Artist Cerner at 07/07/2022 9:51 PM CDT documented in this encounter Plan of Treatment Not on file documented as of this encounter Visit Diagnoses Not on filedocumented in this encounter
--- OUTSIDE RECORDS SUMMARY | 2024-11-17 14:33 | XMS_ITS | Encounter Summary ---
Author Organization [employer] ([place], [place], [place], [place]) Address [address] [place] [address] Care Team Providers Care Fire Extinguisher Installer Name Role Phone Unavailable Primary Care Provider Unavailabl e Encounter Details Date Type Department Care Team (Late st Contact Info) Description 02/10/2019 Transcribed Document [facility] [place] [address] [place] [address] ProviderYusuf MD [facility] [place] [address] Social History Tobacco Use Types [...] - Historical ProviderMD - 02/10/2019 5:00 PM FOOD PROCESSOR Chart Check - Review Order Profile Entered [...]
--- OUTSIDE RECORDS SUMMARY | 2024-11-17 14:33 | XMS_ITS | Encounter Summary ---
Author Organization [employer] ([place], [place], [place], [place]) Address [address] [place] [address] Care Team Providers Care Boots And Shoes Supervisor Name Role Phone Unavailable Primary Care Provider Unavailabl e Encounter Details Date Type Department Care Team (Late st Contact Info) Description 02/11/2019 Transcribed Document [facility] [place] [facility] [place] [address] ProviderYusuf MD [facility] [place] [address] Social History Tobacco Use Types [...] - Historical ProviderMD - 02/11/2019 10:44 AM OPTICIAN Patient: FRANKY DEWITT Age: 74 Years Sex: [...]
--- OUTSIDE RECORDS SUMMARY | 2024-11-17 14:33 | XMS_ITS | Encounter Summary ---
Author Organization [employer] ([place], [place], [place], [place]) Address [address] [place] [address] Care Team Providers Care Multimedia Authoring Specialist Name Role Phone Unavailable Primary Care Provider Unavailabl e Encounter Details Date Type Department Care Team (Late st Contact Info) Description 02/10/2019 Transcribed Document [facility] [place] [facility] [place] [address] ProviderYusuf MD [facility] [place] [address] Social History Tobacco Use Types [...] - Historical ProviderMD - 02/10/2019 5:38 PM GEOTHERMAL PLANT MANAGER Patient: FRANKY DEWITT Age: 74 Years [...]
--- OUTSIDE RECORDS SUMMARY | 2024-11-17 14:33 | XMS_ITS | Encounter Summary ---
Author Organization [employer] ([place], [place], [place], [place]) Address [address] [place] [address] Care Team Providers Care Retail Sales Professional Name Role Phone Unavailable Primary Care Provider Unavailabl e Encounter Details Date Type Department Care Team (Late st Contact Info) Description 02/14/2019 Transcribed Document [facility] [place] [address] [place] [address] ProviderYusuf MD [facility] [place] [address] Social History Tobacco Use Types [...] - Historical ProviderMD - 02/14/2019 5:00 AM OUTCOMES ANALYST Chart Check - Review Order Profile Entered On: 02/14/2019 6:41 EST Performed On: 02/14/2019 5:00 EST by JAYA WASHINGTON REGISITERED_ Chart Check Powerplans Initiated/Discontinued as Appropriate : Yes All Active Orders Reviewed : Yes JAYA WASHINGTON REGISITERED_ - 02/14/2019 6:41 EST Electronically signed by Lillian [facility] Conversion Trials Manager Cerner at 07/07/2022 10:01 PM CDT documented in this encounter Plan of Treatment Not on file documented as of this encounter Visit Diagnoses Not on filedocumented in this encounter
--- OUTSIDE RECORDS SUMMARY | 2024-11-17 14:33 | XMS_ITS | Encounter Summary ---
Author Organization [employer] ([place], [place], [place], [place]) Address [address] [place] [address] Care Team Providers Care Laser Beam Color Scanner Operator Name Role Phone Unavailable Primary Care Provider Unavailabl e Encounter Details Date Type Department Care Team (Late st Contact Info) Description 02/14/2019 Transcribed Document [facility] Radiology 1 [place] [address] Zack Jha MD [address] [place] [address] [address] [place] [id number] Social History Tobacco Use Types Packs/Day Years [...] Referring physician Dr. Johan Sue neurology [facility] Chief complaint bilateral upper and [...] gallop, S1+ S2 No S3 or S4 [place].. Gastrointestinal: Soft, Non-tender, Non-distended, Normal bowel sounds. [...] is ongoing. DC plan: Likely tomorrow to [facility] for short-term rehabilitation. documented in this encounter Plan of Treatment Not on file documented as of this encounter Visit Diagnoses Not on filedocumented in this encounter
--- OUTSIDE RECORDS SUMMARY | 2024-11-17 14:33 | XMS_ITS | Clinical Summary ---
Author Organization [facility] Address [address] [place] [address] Care Team Providers Care Patient Registration Clerk Name Role Phone Jensen Santiago MD Primary Care Provider [phone] Allergies Active Allergy Reactions Criticality Noted Date Comments Lisinopril Hives Low 03/28/2019 Penicillins Rash Low 03/28/2019 Tramadol Rash Low 10/17/2019 Medications potassium chloride (K-DUR,KLOR-CON) 10 MEQ CR tablet Take 10 mEq by mouth Daily. 9 Active losartan (COZAAR) 25 MG tablet Take 1 tablet by mouth Daily. Active Biotin 90798 MCG tablet Take 1,000 mcg by mouth Daily. Active [place]-3 Fatty Acids (FISH OIL) 500 MG capsule [...] TO AFFECTED AREA TWICE DAILY 2 Active [place]-3 Fatty Acids (fish oil) 1000 MG capsule [...] 06/29/2019, 04/22 Medical Devices Implanted Type Area Home Manager Device Identifier Shelf Expiration Date Model / Serial / Lot Sys Liq Emb [place] 18 Evoh/6pct Vl1.5ml - [id number] Implanted:Qty: 1 on 04/06/2019 by Laurent Kelsey MD at [facility] Implant EV3 [place] [employer] [place] [id number] / / Insurance MEDICARE A & B [employer] [facility] Advance Directives Documents on File Type Date Recorded Patient Director Of Recreation Therapy Expl anation LIVING WILL - SCAN 03/29/2019 [...] Scott Spouse Health Care Surrogate Care Teams Patient Registration Clerk Relationship Specialty Start Date End Date Jensen Santiago MD [address] [place] [address] [place] [address] PCP - General Family Medicine 03/26/19
--- OUTSIDE RECORDS SUMMARY | 2024-11-17 14:33 | XMS_ITS | Encounter Summary ---
Author Organization [employer] ([place], [place], [place], [place]) Address [address] [place] [address] Care Team Providers Care Automobile Sales Representative Name Role Phone Unavailable Primary Care Provider Unavailabl e Encounter Details Date Type Department Care Team (Late st Contact Info) Description 02/12/2019 Transcribed Document [facility] [place] [facility] [place] [address] ProviderYusuf MD [facility] [place] [address] Social History Tobacco Use Types [...] - Historical ProviderMD - 02/12/2019 9:00 AM SHEET SEWER Pain Assessment Entered On: 02/12/2019 11:07 EST [...]
--- OUTSIDE RECORDS SUMMARY | 2024-11-17 14:33 | XMS_ITS | Encounter Summary ---
Author Organization [employer] ([place], [place], [place], [place]) Address [address] [place] [address] Care Team Providers Care Dye House Wheel Operator Name Role Phone Unavailable Primary Care Provider Unavailabl e Encounter Details Date Type Department Care Team (Late st Contact Info) Description 02/09/2019 Transcribed Document [facility] [place] [facility] [place] [address] ProviderYusuf MD [facility] [place] [address] Social History Tobacco Use [...] - Historical ProviderMD - 02/09/2019 2:51 PM MIXING MACHINE TENDER On Going Discharge Planning Entered On: 02/09/2019 14:52 EST Performed On: 02/09/2019 14:51 EST by ALECIA GOMEZ RN-Asbestos Siding InstallerFlower Pot Press Operator Progress Note Discharge Arrangements : Patient Post-Acute [...] Meeting Medical Necessity : Yes ALECIA GOMEZ RN-Asbestos Siding Installer - 02/09/2019 14:51 EST Narrative Progress Note [...] to follow for d/c needs. ALECIA GOMEZ RN-Asbestos Siding Installer - 02/08/19 09:16:23 CM reviewed chart. RRS 38. Cm to room to met pt. Pt spouse in room. spouse stated that pt is off floor for Xray. Spouse stated that DCP is to discharge home with family. Possible hh if a need. CM will continue to follow for d/c needs. ALECIA GOMEZ RN-Asbestos Siding Installer - 02/07/19 09:05:36 ALECIA GOMEZ RN-Asbestos Siding Installer - 02/09/2019 14:51 EST documented in this encounter Plan of Treatment Not on file documented as of this encounter Visit Diagnoses Not on filedocumented in this encounter
--- OUTSIDE RECORDS SUMMARY | 2024-11-17 14:33 | XMS_ITS | Encounter Summary ---
Author Organization [employer] ([place], [place], [place], [place]) Address [address] [place] [address] Care Team Providers Care Community Development Specialist Name Role Phone Unavailable Primary Care Provider Unavailabl e Encounter Details Date Type Department Care Team (Late st Contact Info) Description 02/10/2019 Transcribed Document [facility] [place] Family Medicine [address] [place] [address] ProviderYusuf MD [facility] [place] [address] Social History Tobacco Use Types [...] - Historical ProviderMD - 02/10/2019 5:00 AM HAND BLOCKER Chart Check - Review Order Profile Entered [...]
--- OUTSIDE RECORDS SUMMARY | 2024-11-17 14:33 | XMS_ITS | Encounter Summary ---
Author Organization [employer] ([place], [place], [place], [place]) Address [address] [place] [address] Care Team Providers Care Inspector Wire Products Name Role Phone Unavailable Primary Care Provider Unavailabl e Encounter Details Date Type Department Care Team (Late st Contact Info) Description 02/15/2019 Transcribed Document [facility] [place] Medicine [facility] [place] [address] ProviderYusuf MD [facility] [place] [address] Social History Tobacco Use Types [...] - Yusuf ProviderMD - 02/15/2019 10:58 AM TYPE PROOF REPRODUCER Patient Education Materials Follows: Transverse Myelitis Transverse [...] You may need to see a nervous solar system installer (neurologist) to have tests, which may include: [...] Follow these instructions at home: ??? Take fljf-tha-edodjlf and prescription medicines only as told by [...] 02/25/2003 Document Revised: 11/07/2016 Document Reviewed: 08/13/2015 [employer]il Interactive Patient Education ? 2019 [employer]. Neurology Spinal Cord Infarction A spinal [...] ? Manage bowel and bladder problems. ? [place] with mental health problems. ? Manage pain. [...] 02/25/2003 Document Revised: 11/02/2016 Document Reviewed: 05/21/2014 Kextil Interactive Patient Education ? 2019 [employer] Inc. Weakness Weakness is a lack of [...] sleep you need each night. ??? Take fqzw-pgq-gnzguvq and prescription medicines only as told by [...] about working with a physical therapist or rubber curer to help you get stronger. ??? Keep [...] 02/17/2009 Document Revised: 04/01/2016 Document Reviewed: 12/26/2015 K[employer]il Interactive Patient Education ? 2019 [employer]. Obstetrics and Gynecology Near-Syncope Near-syncope is [...] This can help with dizziness. ??? Take xhjk-hym-ieqjsjy and prescription medicines only as told by [...] 11/19/2015 Elsevier Interactive Patient Education ? 2019 [employer] Inc. documented in this encounter Plan of Treatment Not on file documented as of this encounter Visit Diagnoses Not on filedocumented in this encounter
--- OUTSIDE RECORDS SUMMARY | 2024-11-17 14:33 | XMS_ITS | Encounter Summary ---
Author Organization [employer] ([place], [place], [place], [place]) Address [address] [place] [address] Care Team Providers Care Spine Surgeon Name Role Phone Unavailable Primary Care Provider Unavailabl e Encounter Details Date Type Department Care Team (Late st Contact Info) Description 02/09/2019 Transcribed Document [facility] Radiology 1 [place] [address] Anne Peters MD [address] [place] [address] [address] [place] [id number] Social History Tobacco Use Types Packs/Day Years [...] : 1945 Associated Diagnoses: None Author: ANNE EPTERS MD-INT Subjective Primary care physician Dr Bradley [...] At risk for sleep apnea / O [id number] / Confirmed, Active Problems (3) At risk [...] gallop, S1+ S2 No S3 or S4 [place].. Gastrointestinal: Soft, Non-tender, Non-distended, Normal bowel sounds. [...]
--- OUTSIDE RECORDS SUMMARY | 2024-11-17 14:33 | XMS_ITS | Encounter Summary ---
Author Organization [employer] ([place], [place], [place], [place]) Address [address] [place] [address] Care Team Providers Care Cement Storage Worker Name Role Phone Unavailable Primary Care Provider Unavailabl e Encounter Details Date Type Department Care Team (Late st Contact Info) Description 02/13/2019 Transcribed Document [facility] [place] Family Medicine [facility] [place] [address] ProviderYusuf MD [facility] [place] [address] Social History Tobacco Use [...] - Yusuf ProviderMD - 02/13/2019 9:25 AM PROP DRAWER On Going Discharge Planning Entered On: 02/13/2019 [...] prefer STR. Patient's first choice would be [facility] in [place] and second choice is [facility]. Referrals sent through [facility]. CM will continue to follow. Historical Progress Note : CM reviewed chart. Neuro consult and following, MRI Cervical Thor. and Lumbar Spine. Discussed DCP with pt including HH vs Rehab. CM Will continue to follow for d/c needs. ALECIA GOMEZ RN-Waybill Clerk - 02/09/19 14:52:38 CM reviewed chart. Cm [...] to follow for d/c needs. ALECIA GOMEZ RN-Waybill Clerk - 02/08/19 09:16:23 CM reviewed chart. RRS 38. Cm to room to met pt. Pt spouse in room. spouse stated that pt is off floor for Xray. Spouse stated that DCP is to discharge home with family. Possible hh if a need. CM will continue to follow for d/c needs. ALECIA GOMEZ RN-Waybill Clerk - 02/07/19 09:05:36 Neva Cotto RN - 02/13/2019 9:25 EST Electronically signed by Lillian [facility] Conversion Tab Card Press Operator Cerner at 07/07/2022 10:01 PM CDT documented in this encounter Plan of Treatment Not on file documented as of this encounter Visit Diagnoses Not on filedocumented in this encounter
--- OUTSIDE RECORDS SUMMARY | 2024-11-17 14:33 | XMS_ITS | Encounter Summary ---
Author Organization [employer] ([place], [place], [place], [place]) Address [address] [place] [address] Care Team Providers Care Freight Sales Broker Name Role Phone Unavailable Primary Care Provider Unavailabl e Encounter Details Date Type Department Care Team (Late st Contact Info) Description 02/12/2019 Transcribed Document [facility] [place] [address] [place] [address] ProviderYusuf MD [facility] [place] [address] Social History Tobacco Use Types [...] - Historical ProviderMD - 02/12/2019 9:00 AM J2EE JAVA DEVELOPER Consult Phone Call Documentation Entered On: 02/12/2019 9:21 EST Performed On: 02/12/2019 9:00 EST by Gloria Acosta [facility] COORD Phone Call for Consults Consult Phone Call/Page Attempt : Other: Md called Consult Reason : Thrombocytosis Physician Requesting Consult : BASHIR RAYMOND MD-INT Physician Requested for Consult : EMANUEL MITCHELL MD-RHE Provider Service Notified Name : Other: Oncology Date and Time Call Returned : 02/12/2019 8:56 EST Gloria Acosta [facility] COORD - 02/12/2019 9:20 EST Electronically signed by Lillian [facility] Conversion Talent Management Manager Cerner at 07/07/2022 9:48 PM CDT documented in this encounter Plan of Treatment Not on file documented as of this encounter Visit Diagnoses Not on filedocumented in this encounter
--- OUTSIDE RECORDS SUMMARY | 2024-11-17 14:33 | XMS_ITS | Encounter Summary ---
Author Organization [employer] ([place], [place], [place], [place]) Address [address] [place] [address] Care Team Providers Care Retention Manager Name Role Phone Unavailable Primary Care Provider Unavailabl e Encounter Details Date Type Department Care Team (Late st Contact Info) Description 02/09/2019 Transcribed Document [facility] [place] [facility] [place] [address] ProviderYusuf MD [facility] [place] [address] Social History Tobacco Use Types [...] - Historical ProviderMD - 02/09/2019 5:00 AM FILLER AND TRIMMER Chart Check - Review Order Profile Entered [...]
--- OUTSIDE RECORDS SUMMARY | 2024-11-17 14:33 | XMS_ITS | Encounter Summary ---
Author Organization [employer] ([place], [place], [place], [place]) Address [address] [place] [address] Care Team Providers Care Postal Clerk Name Role Phone Unavailable Primary Care Provider Unavailabl e Encounter Details Date Type Department Care Team (Late st Contact Info) Description 02/11/2019 Transcribed Document [facility] [place] Family Medicine [address] [place] [address] ProviderYusuf MD [facility] [place] [address] Social History Tobacco Use [...] - Historical ProviderMD - 02/11/2019 5:00 PM TRAILER TANK TRUCK DRIVER Chart Check - Review Order Profile [...]
--- OUTSIDE RECORDS SUMMARY | 2024-11-17 14:33 | XMS_ITS | Encounter Summary ---
Author Organization [employer] ([place], [place], [place], [place]) Address [address] [place] [address] Care Team Providers Care Outside Sales Professional Name Role Phone Unavailable Primary Care Provider Unavailabl e Encounter Details Date Type Department Care Team (Late st Contact Info) Description 02/09/2019 Transcribed Document [facility] [place] [facility] [place] [address] ProviderYusuf MD [facility] [place] [address] Social History Tobacco Use Types [...] - Historical ProviderMD - 02/09/2019 5:00 PM FINE GRADE OPERATOR Chart Check - Review Order Profile Entered On: 02/09/2019 15:20 EST Performed On: 02/09/2019 17:00 EST by Yeimi Olmos RN Chart Check Powerplans Initiated/Discontinued as Appropriate : Yes All Active Orders Reviewed : Yes Yeimi Olmos RN - 02/09/2019 15:20 EST Electronically signed by Lillian [facility] Conversion Sand Bobber Cerner at 07/07/2022 9:50 PM CDT documented in this encounter Plan of Treatment Not on file documented as of this encounter Visit Diagnoses Not on filedocumented in this encounter
--- OUTSIDE RECORDS SUMMARY | 2024-11-17 14:33 | XMS_ITS | Encounter Summary ---
Author Organization [employer] ([place], [place], [place], [place]) Address [address] [place] [address] Care Team Providers Care Medical Secretary Teacher Name Role Phone Unavailable Primary Care Provider Unavailabl e Encounter Details Date Type Department Care Team (Late st Contact Info) Description 02/13/2019 Transcribed Document [facility] [place] [address] [place] [address] ProviderYusuf MD [place] [address] Social History Tobacco Use Types [...] - Historical ProviderMD - 02/13/2019 2:00 AM ELASTIC YARN TWISTER Customer Services Coordinator Details Entered On: 02/13/2019 4:00 EST Performed [...]
--- OUTSIDE RECORDS SUMMARY | 2024-11-17 14:34 | XMS_ITS | Encounter Summary ---
Author Organization [email or web address] ([place], [place], [place], [place]) Address [address] [place] [address] Care Team Providers Care Sas Programmer Name Role Phone Unavailable Primary Care Provider Unavailabl e Encounter Details Date Type Department Care Team (Late st Contact Info) Description 02/08/2019 Transcribed Document [facility] [place] Family Medicine [address] [place] [address] ProviderYusuf MD [facility] [place] [address] Social History Tobacco Use Types [...] - Historical ProviderMD - 02/08/2019 12:58 AM COMMUNITY SERVICE OFFICER COORDINATOR Event Note Entered On: 02/08/2019 1:00 EST [...]
--- OUTSIDE RECORDS SUMMARY | 2024-11-17 14:34 | XMS_ITS | Encounter Summary ---
Author Organization [employer] ([place], [place], [place], [place]) Address [address] [place] [address] Care Team Providers Care Disability Counselor Name Role Phone Unavailable Primary Care Provider Unavailabl e Encounter Details Date Type Department Care Team (Late st Contact Info) Description 02/05/2019 Transcribed Document [facility] Radiology [address] [place] [address] Anne Peters MD [address] [place] [address] [address] [place] [id number] Social History Tobacco Use Types Packs/Day Years [...] Q4H, PRN: Nausea heparin: 5,000 Units, SubCutaneous, Q58RGdn hydrALAZINE: 5 mg, IV Push, Q4H, PRN: Hypertension morphine: 2 mg, IV Push, Q2H, PRN: Pain (Severe 7-10), No qualifying data available , Medications (8) Active Scheduled: (2) famotidine 20 mg tab 20 mg 1 Tab, Oral, Q12H heparin 5,000 Units, SubCutaneous, T41THyc Continuous: (0) PRN: (6) acetaminophen 325 mg [...] gallop, S1+ S2 No S3 or S4 [place].. Gastrointestinal: Soft, Non-tender, Non-distended, Normal bowel sounds. [...]
--- OUTSIDE RECORDS SUMMARY | 2024-11-17 14:34 | XMS_ITS | Encounter Summary ---
Author Organization [employer] ([place], [place], [place], [place]) Address [address] [place] [address] Care Team Providers Care Bellmaker Name Role Phone Unavailable Primary Care Provider Unavailabl e Encounter Details Date Type Department Care Team (Late st Contact Info) Description 02/08/2019 Transcribed Document [facility] Radiology [address] [place] [address] Anne Peters MD [address] [place] [address] [address] [place] [id number] Social History Tobacco Use Types Packs/Day Years [...] discharge Referring physician Dr. Johan Sue neurology [facility] Chief [...] At risk for sleep apnea / IMO [id number] / Confirmed, Active Problems (3) At risk [...] gallop, S1+ S2 No S3 or S4 [place].. Gastrointestinal: Soft, Non-tender, Non-distended, Normal bowel sounds. [...] (FEB 05) Radiology Results (Last 48 hours) [id number] -- 02/05/2019 10:21 CR Fluoro GD Lumbar Punct Dx (02/06/2019 14:40) Result: LUMBAR PUNCTURE AND FLUOROSCOPYHISTORY: Transverse myelitis.ATTENDING PHYSICIAN: Baljit Gee M.D.PHYSICIAN ICT SALES ASSISTANT: KELSIE LuqueCPROCEDURE: After informed consent was obtained [...]
--- OUTSIDE RECORDS SUMMARY | 2024-11-17 14:34 | XMS_ITS | Encounter Summary ---
Author Organization [employer] ([place], [place], [place], [place]) Address [address] [place] [address] Care Team Providers Care Fitness Management Director Name Role Phone Unavailable Primary Care Provider Unavailabl e Encounter Details Date Type Department Care Team (Late st Contact Info) Description 02/07/2019 Transcribed Document [facility] [place] [address] [place] [address] ProviderYusuf MD [facility] [place] [address] Social History Tobacco Use Types [...] - Historical ProviderMD - 02/07/2019 5:00 PM PLASTIC TUBING INSULATION SUPERVISOR Chart Check - Review Order Profile Entered On: 02/07/2019 15:28 EST Performed On: 02/07/2019 17:00 EST by ROLY MEDEIROS RN Chart Check Powerplans Initiated/Discontinued as Appropriate : Yes All Active Orders Reviewed : Yes ROLY MEDEIROS RN - 02/07/2019 15:28 EST Electronically signed by Onel Snyder Conversion Inseam Trimming Machine Operator Cerner at 07/07/2022 9:57 PM CDT documented in this encounter Plan of Treatment Not on file documented as of this encounter Visit Diagnoses Not on filedocumented in this encounter
--- OUTSIDE RECORDS SUMMARY | 2024-11-17 14:34 | XMS_ITS | Encounter Summary ---
Author Organization [email or web address] ([place], [place], [place], [place]) Address [address] [place] [address] Care Team Providers Care Occupational Health And Safety Manager Name Role Phone Unavailable Primary Care Provider Unavailabl e Encounter Details Date Type Department Care Team (Late st Contact Info) Description 02/15/2019 Transcribed Document [facility] [place] [facility] [place] [address] ProviderYusuf MD [facility] [place] [address] Social History Tobacco Use [...] - Yusuf ProviderMD - 02/15/2019 1:24 PM ICE CREAM SCOOPER [facility] [place], [place] [id number] FRANKY DEWITT :1945 Visit Time:02/05/2019 Your Visit [...] next Instructions From Your Care Team Rehabilitation: [facility] spinal cord unit/ / Discharge Summary: [phone] faxed [facility] Transportation: Car with family Follow up with Dr. Sue in 2 weeks. Follow up with Dr. Allen as recommended in 2-3 weeks. Discharge Follow Up Instructions: Follow-Up Appointments Follow Up with BRISEIDA SUE MD-GIBSON When Within 1 month Where: [address] [address] [place] [place] [address]- Medications What How Much When Instructions Next [...] ? Manage bowel and bladder problems. ? Ada with mental health problems. ? Manage pain. [...] 02/25/2003 Document Revised: 11/02/2016 Document Reviewed: 05/21/2014 [employer] Interactive Patient Education ?? 2019 [employer]. Near-Syncope Near-syncope is when you suddenly [...] This can help with dizziness. ??? Take taxe-mfi-ukrmxcg and prescription medicines only as told by [...] 08/23/2008 Document Revised: 04/20/2017 Document Reviewed: 11/19/2015 ElseOmnisio Interactive Patient Education ?? 2019 [employer] Weakness Weakness is a lack of [...] sleep you need each night. ??? Take jjev-fcc-dznnsui and prescription medicines only as told by [...] about working with a physical therapist or assistive technology trainer to help you get stronger. ??? [...] 02/17/2009 Document Revised: 04/01/2016 Document Reviewed: 12/26/2015 [employer] Interactive Patient Education ?? 2019 [employer]. Transverse Myelitis Transverse myelitis is a condition [...] You may need to see a nervous sprinkling system installer (neurologist) to have tests, which [...] Follow these instructions at home: ??? Take qzlw-ydd-iknungp and prescription medicines only as told by [...] 02/25/2003 Document Revised: 11/07/2016 Document Reviewed: 08/13/2015 [employer] Interactive Patient Education ?? 2019 [employer]. prednisone (PRED lucas zelda Wallsos What is [...] may report side effects to FDA at 6-242-KFP-5879. What other drugs will affect prednisone? Sometimes [...] may affect prednisone. This includes prescription and ypup-eyl-fxqiliy medicines, vitamins, and herbal products. Not all [...] to ensure that the information provided by [employer]. ('[employer]') is accurate, up-to-date, and complete, but no guarantee is made to that effect. Drug information contained herein may be time sensitive. In[employer] information has been compiled for use by healthcare practitioners and consumers in the [place] and therefore [employer] does not warrant that uses outside of the [place] are appropriate, unless specifically indicated otherwise. Duogous drug information does not endorse drugs, diagnose patients or recommend therapy. Duogous drug information is an informational resource designed [...] or appropriate for any given patient. [facility] does not assume any responsibility for any aspect of healthcare administered with the aid of information [facility] provides. The information contained herein is not intended to cover all possible uses, directions, precautions, warnings, drug interactions, allergic reactions, or adverse effects. If you have questions about the drugs you are taking, check with your doctor, nurse or pharmacist. Copyright 6466-2481 [facility] Hospital[facility] Online DevicesBioAnalytix. Version: 10.. Revision Date: 06/15/2018. Emergency Awareness [...] Assistance with quitting is available by contacting 3-586-UHQN-NOW. This is a free resource providing counseling, [...] range between ( 0.0 and 7.0 ) [place] #: 0.75 K/uL -- Normal range between ( 0.16 and 1.00 ) Eos #: 0.08 x10(3)/uL -- Normal range between ( 0.00 and 0.80 ) [place] %: 8.5 % -- Normal range between [...] RBC Morphology: Normal ANC #: 3 K/uL [place] Percent Man: 9 % -- Normal range [...] ) Urine Bilirubin Dipstick: Negative Urine Specific [place]: 1.020 -- Normal range between ( 1.005 [...] was given the opportunity to ask questions. Patient/Cement Conveyor Operator Name: Patient/Cement Conveyor Operator Signature: Relationship to Patient: Clinician/Hospital Cement Conveyor Operator Signature: Date: documented in this encounter Plan of Treatment Not on file documented as of this encounter Visit Diagnoses Not on filedocumented in this encounter
--- OUTSIDE RECORDS SUMMARY | 2024-11-17 14:34 | XMS_ITS | Encounter Summary ---
Author Organization [employer] ([place], [place], [place], [place]) Address [address] [place] [address] Care Team Providers Care Marble Installer Supervisor Name Role Phone Unavailable Primary Care Provider Unavailabl e Encounter Details Date Type Department Care Team (Late st Contact Info) Description 02/15/2019 Transcribed Document [facility] Radiology 1 [place] [address] Zack Jha MD [address] [place] [address] [address] [place] [id number] Social History Tobacco Use Types Packs/Day Years [...] 02/05/2019 Date of discharge: 02/15/2019 Discharge facilitys [facility] Full code at the time of discharge Referring physician Dr. Johan Sue neurology [facility] Chief complaint bilateral upper and [...] gallop, S1+ S2 No S3 or S4 [place].. Gastrointestinal: Soft, Non-tender, Non-distended, Normal bowel sounds. [...] (FEB 05) Radiology Results (Last 48 hours) [id number] -- 02/05/2019 10:21 CT Abdomen Pelvis WO [...] per history. DC Instructions 1- DC to [facility] today 2- Follow with neurology Dr. Sue [...] minutes Cc DC summary to: PCP, neurology [facility], neurology [facility], rheumatology Dr. Allen, documented in this encounter Plan of Treatment Not on file documented as of this encounter Visit Diagnoses Not on filedocumented in this encounter
--- OUTSIDE RECORDS SUMMARY | 2024-11-17 14:34 | XMS_ITS | Encounter Summary ---
Author Organization [employer] ([place], [place], [place], [place]) Address [address] [place] [address] Care Team Providers Care Insurance Claims Representative Name Role Phone Unavailable Primary Care Provider Unavailabl e Encounter Details Date Type Department Care Team (Late st Contact Info) Description 02/15/2019 Transcribed Document [facility] [place] Family Medicine [facility] [place] [address] ProviderYusuf MD [facility] [place] [address] Social History Tobacco Use [...] - Yusuf ProviderMD - 02/15/2019 11:32 AM LOCAL COMPANY INTERMODAL TRUCK DRIVER Final Discharge Planning Entered On: 02/15/2019 11:35 EST Performed On: 02/15/2019 11:32 EST by ALECIA GOMEZ RN-Evaporator Helper Final Discharge Planning Discharge Arrangements : Patient Post-Acute Information Patient Name: FRANKY DEWITT Gender: Female : [birth year] Age: 74 Years Cur[place] Referral(s): Service: Organization: Business Address: Phone Number: Acute Rehab [facility] [address] [place], [address] Patient Offered Choice/Affiliations Explained : Yes Transportation Needs : Family/Friend ALECIA GOMEZ RN-Evaporator Helper - 02/15/2019 11:32 EST Final Narrative Note Final Narrative Note : CM reviewed chart. CM met with pt to discuss DCP. [facility] spinal Cord unti today. will transport. IM and choice signed. Report to Rehabilitation: [facility] spinal cord unit/ Discharge Summary: [phone] faxed [facility] Follow up with Dr. Sue in 2 weeks. Pt informed. Follow up with Dr. Allen as recommended in 2-3 weeks. Pt informed. Historical Narrative Note : CM reviewed chart. RRS 32. CM met to discuss DCP. [facility] spinal cord unit today. will transport. IM and Choice signed.. Cm informed pharmacy and bedside RN. Confirmed with [facility]. No further needs noted. ALECIA GOMEZ, RN-Evaporator Helper - 02/15/19 11:02:20 ALECIA GOMEZ, JONATAN-Evaporator Helper - 02/15/2019 11:32 EST documented in this encounter Plan of Treatment Not on file documented as of this encounter Visit Diagnoses Not on filedocumented in this encounter
--- OUTSIDE RECORDS SUMMARY | 2024-11-17 14:34 | XMS_ITS | Encounter Summary ---
Author Organization [employer] ([place], [place], [place], [place]) Address [address] [place] [address] Care Team Providers Care Computer Education Teacher Name Role Phone Unavailable Primary Care Provider Unavailabl e Encounter Details Date Type Department Care Team (Late st Contact Info) Description 02/07/2019 Transcribed Document [facility] [place] [facility] [place] [address] ProviderYusuf MD [address] [place] [address] Social History Tobacco Use Types [...] - Historical ProviderMD - 02/07/2019 12:08 PM PARK MAINTENANCE TECHNICIAN Patient: FRANKY SCOTT Age: 74 Years Sex: [...] 1 Tab, Oral, Daily Electronically signed by Onel Snyder Conversion Art Psychotherapist Or Therapist Kalinaner at 07/07/2022 9:50 PM CDT documented in this encounter Plan of Treatment Not on file documented as of this encounter Visit Diagnoses Not on filedocumented in this encounter
--- OUTSIDE RECORDS SUMMARY | 2024-11-17 14:34 | XMS_ITS | Encounter Summary ---
Author Organization [employer] ([place], [place], [place], [place]) Address [address] [place] [address] Care Team Providers Care Strategic Planning Director Name Role Phone Unavailable Primary Care Provider Unavailabl e Encounter Details Date Type Department Care Team (Late st Contact Info) Description 02/15/2019 Transcribed Document [facility] [place] [address] [place] [address] ProviderYusuf MD [facility] [place] [address] Social History Tobacco Use Types [...] - Historical ProviderMD - 02/15/2019 10:46 AM REPAIRER WELDING EQUIPMENT Stroke/Warfarin Instructions Entered On: 02/15/2019 10:46 EST [...]
--- OUTSIDE RECORDS SUMMARY | 2024-11-17 14:34 | XMS_ITS | Encounter Summary ---
Author Organization [employer] ([place], [place], [place], [place]) Address [address] [place] [address] Care Team Providers Care Practice Manager Name Role Phone Unavailable Primary Care Provider Unavailabl e Encounter Details Date Type Department Care Team (Late st Contact Info) Description 02/05/2019 Transcribed Document [facility] [place] [facility] [place] [address] ProviderYusuf MD [facility] [place] [address] Social History Tobacco Use [...] - Historical ProviderMD - 02/05/2019 10:38 AM EXPERIMENTAL MACHINIST Pain Assessment Entered On: 02/09/2019 15:20 EST Performed On: 02/09/2019 11:26 EST by Yeimi Olmos RN Intervention Information: acetaminophen Performed by Yemii Olmos RN on 02/09/2019 10:26:00 EST acetaminophen,650mg [...]
--- OUTSIDE RECORDS SUMMARY | 2024-11-17 14:34 | XMS_ITS | Encounter Summary ---
Author Organization [employer] ([place], [place], [place], [place]) Address [address] [place] [address] Care Team Providers Care Mattress Stuffer Name Role Phone Unavailable Primary Care Provider Unavailabl e Encounter Details Date Type Department Care Team (Late st Contact Info) Description 02/09/2019 Transcribed Document [facility] [place] Medicine [facility] [place] [address] ProviderYusuf MD [facility] [place] [address] Social History Tobacco Use Types [...] - Historical ProviderMD - 02/09/2019 5:08 PM HEALTHCARE REPRESENTATIVE Patient: FRANKY SCOTT Age: 74 Years Sex: [...]
--- OUTSIDE RECORDS SUMMARY | 2024-11-17 14:34 | XMS_ITS | Encounter Summary ---
Author Organization [employer] ([place], [place], [place], [place]) Address [address] [place] [address] Care Team Providers Care Lead Tank Mechanic Name Role Phone Unavailable Primary Care Provider Unavailabl e Encounter Details Date Type Department Care Team (Late st Contact Info) Description 02/07/2019 Transcribed Document [facility] [place] [facility] [place] [address] ProviderYusuf MD [facility] [place] [address] Social History Tobacco Use [...] - Historical ProviderMD - 02/07/2019 5:00 AM DIRECTOR FOOD AND BEVERAGE Chart Check - Review Order Profile Entered [...]
--- OUTSIDE RECORDS SUMMARY | 2024-11-17 14:34 | XMS_ITS | Encounter Summary ---
Author Organization [employer] ([place], [place], [place], [place]) Address [address] [place] [address] Care Team Providers Care Slitter And Cutter Operator Name Role Phone Unavailable Primary Care Provider Unavailabl e Encounter Details Date Type Department Care Team (Late st Contact Info) Description 02/15/2019 Transcribed Document [facility] [place] Family Medicine [address] [place] [address] ProviderYusuf MD [facility] [place] [address] Social History Tobacco Use Types [...] - Historical ProviderMD - 02/15/2019 5:00 AM PORCELAIN ENAMELING SUPERVISOR Chart Check - Review Order Profile Entered On: 02/15/2019 6:55 EST Performed On: 02/15/2019 5:00 EST by Esther Cheek RN Chart Check All Active Orders Reviewed : Yes Esther Cheek RN - 02/15/2019 6:55 EST Electronically signed by Lillian [facility] Conversion Administrative Assistant Cerner at 07/07/2022 9:50 PM CDT documented in this encounter Plan of Treatment Not on file documented as of this encounter Visit Diagnoses Not on filedocumented in this encounter
--- OUTSIDE RECORDS SUMMARY | 2024-11-17 14:34 | XMS_ITS | Encounter Summary ---
Author Organization [employer] ([place], [place], [place], [place]) Address [address] [place] [address] Care Team Providers Care Dye Reel Operator Name Role Phone Unavailable Primary Care Provider Unavailabl e Encounter Details Date Type Department Care Team (Late st Contact Info) Description 02/16/2019 Transcribed Document [facility] [place] Medicine [facility] [place] [address] ProviderYusuf MD [facility] [place] [address] Social History Tobacco Use Types [...] - Historical ProviderMD - 02/16/2019 7:49 AM REGIONAL TRAINING MANAGER Discharge Summary, PT Entered On: 02/16/2019 7:50 [...] with a Rwx. She was D/C to [facility] for follow up rehab. ROBERT [...] ROBERT TINAJERO, PT - 02/16/2019 7:49 EST Foil Cutter Goals Mobility/Bed Mobility LTG PT Grid Goal [...] 02/16/2019 7:49 EST Electronically signed by Lillian [facility] Conversion Fabrics And Material Cutter Cerner at 07/07/2022 9:48 PM CDT documented in this encounter Plan of Treatment Not on file documented as of this encounter Visit Diagnoses Not on filedocumented in this encounter
--- OUTSIDE RECORDS SUMMARY | 2024-11-17 14:34 | XMS_ITS | Encounter Summary ---
Author Organization [employer] ([place], [place], [place], [place]) Address [address] [place] [address] Care Team Providers Care Technical Rep Name Role Phone Unavailable Primary Care Provider Unavailabl e Encounter Details Date Type Department Care Team (Late st Contact Info) Description 02/08/2019 Transcribed Document [facility] [place] [facility] [place] [address] ProviderYusuf MD [facility] [place] [address] Social History Tobacco Use Types [...] - Historical ProviderMD - 02/08/2019 5:00 PM SOFTWARE QUALITY TEST ENGINEER Chart Check - Review Order Profile [...]
--- OUTSIDE RECORDS SUMMARY | 2024-11-17 14:34 | XMS_ITS | Encounter Summary ---
Author Organization [employer] ([place], [place], [place], [place]) Address [address] [place] [address] Care Team Providers Care It Compliance Analyst Name Role Phone Unavailable Primary Care Provider Unavailabl e Encounter Details Date Type Department Care Team (Late st Contact Info) Description 02/15/2019 Transcribed Document [facility] [place] Family Medicine [facility] [place] [address] ProviderYusuf MD [facility] [place] [address] Social History [...] - Yusuf ProviderMD - 02/15/2019 10:59 AM INSURANCE BROKER Final Discharge Planning Entered On: 02/15/2019 11:02 EST Performed On: 02/15/2019 10:59 EST by ALECIA GOMEZ RN-Senior Clinical Project Manager Final Discharge Planning Discharge Arrangements : Patient Post-Acute Information Patient Name: FRANKY SCOTT Gender: Female : [birth year] Age: 74 Years [place] Referral(s): Service: Organization: Business Address: Phone Number: Acute Rehab [facility] [address] [place], [address] Patient Offered Choice/Affiliations Explained : Yes Transportation Needs : Family/Friend Discharge To Care Management : IRF -Inpatient Rehabilitation Facility- ALECIA GOMEZ RN-Senior Clinical Project Manager - 02/15/2019 10:59 EST Final Narrative Note Final Narrative Note : CM reviewed chart. RRS 32. CM met to discuss DCP. [facility] spinal cord unit today. will transport. IM and Choice signed.. Cm informed pharmacy and bedside RN. Confirmed with [facility]. No further needs noted. ALECIA GOMEZ, JONATAN-Senior Clinical Project Manager - 02/15/2019 10:59 EST Electronically signed by Interface, [facility] Conversion Lens Block Gauger Cerner at 07/07/2022 9:55 PM CDT documented in this encounter Plan of Treatment Not on file documented as of this encounter Visit Diagnoses Not on filedocumented in this encounter
--- OUTSIDE RECORDS SUMMARY | 2024-11-17 14:34 | XMS_ITS | Encounter Summary ---
Author Organization [employer] ([place], [place], [place], [place]) Address [address] [place] [address] Care Team Providers Care Mobile Service Rv Technician Name Role Phone Unavailable Primary Care Provider Unavailabl e Encounter Details Date Type Department Care Team (Late st Contact Info) Description 02/08/2019 Transcribed Document [facility] [place] [address] ProviderYusuf [place] [address] Social History Tobacco Use Types [...] - Historical ProviderMD - 02/08/2019 9:14 AM PROGRAM MANAGEMENT MANAGER On Going Discharge Planning Entered On: 02/08/2019 9:16 EST Performed On: 02/08/2019 9:14 EST by ALECIA GOMEZ RN-Habilitative InterventionistLumber Stacker Operator Progress Note Discharge Arrangements : Patient [...] : Clinical Condition of Patient ALECIA GOMEZ RN-Habilitative Interventionist - 02/08/2019 9:14 EST Narrative Progress Note [...] to follow for d/c needs. ALECIA GOMEZ, RN-Habilitative Interventionist - 02/07/19 09:05:36 ALECIA GOMEZ RN-Habilitative Interventionist - 02/08/2019 9:14 EST Electronically signed by Lillian [facility] Conversion Antique Collector Cerner at 07/07/2022 9:59 PM CDT documented in this encounter Plan of Treatment Not on file documented as of this encounter Visit Diagnoses Not on filedocumented in this encounter
--- OUTSIDE RECORDS SUMMARY | 2024-11-17 14:34 | XMS_ITS | Encounter Summary ---
Author Organization [employer] ([place], [place], [place], [place]) Address [address] [place] [address] Care Team Providers Care Piccolo Mechanic Name Role Phone Unavailable Primary Care Provider Unavailabl e Encounter Details Date Type Department Care Team (Late st Contact Info) Description 02/15/2019 Transcribed Document [facility] [place] [facility] [place] [address] ProviderYusuf MD [facility] [place] [address] Social History Tobacco Use Types [...] - Historical ProviderMD - 02/15/2019 10:46 AM CORPORATE LEGAL INTERN Nursing Discharge Summary Entered On: 02/15/2019 10:47 [...] 02/15/2019 10:46 EST Electronically signed by Lillian [facility] Conversion Police Investigator Cerner at 07/07/2022 9:49 PM CDT documented in this encounter Plan of Treatment Not on file documented as of this encounter Visit Diagnoses Not on filedocumented in this encounter
--- OUTSIDE RECORDS SUMMARY | 2024-11-17 14:34 | XMS_ITS | Clinical Summary ---
Author Organization [employer] ([place], [place], [place], [place]) Address [address] [place] [address] Care Team Providers Care Latin Professor Name Role Phone Unavailable Primary Care [...]
--- OUTSIDE RECORDS SUMMARY | 2024-11-17 14:34 | XMS_ITS | Encounter Summary ---
Author Organization [employer] ([place], [place], [place], [place]) Address [address] [place] [address] Care Team Providers Care Deputy Sheriff K9 Handler Name Role Phone Unavailable Primary Care Provider Unavailabl e Encounter Details Date Type Department Care Team (Late st Contact Info) Description 02/08/2019 Transcribed Document [facility] [place] Family Medicine [facility] [place] [address] ProviderYusuf MD [facility] [place] [address] Social History Tobacco Use [...] - Historical ProviderMD - 02/08/2019 5:00 AM SYSTEMS AUDITOR Chart Check - Review Order Profile Entered [...]
--- OUTSIDE RECORDS SUMMARY | 2024-11-17 14:34 | XMS_ITS | Encounter Summary ---
Author Organization [employer] ([place], [place], [place], [place]) Address [address] [place] [address] Care Team Providers Care Dinkey Brakeman Name Role Phone Unavailable Primary Care Provider Unavailabl e Encounter Details Date Type Department Care Team (Late st Contact Info) Description 02/05/2019 Transcribed Document [facility] [place] Family Medicine [address] [place] [address] ProviderYusuf MD [address] [place] [address] Social History Tobacco Use Types [...] - Historical ProviderMD - 02/05/2019 10:53 AM CNC PROGRAMMER PRODUCTION CREW SUPERVISOR Attempt to Treat Entered On: 02/05/2019 [...]
--- OUTSIDE RECORDS SUMMARY | 2024-11-17 14:34 | XMS_ITS | Encounter Summary ---
Author Organization [employer] ([place], [place], [place], [place]) Address [address] [place] [address] Care Team Providers Care Chemical Plant Manager Name Role Phone Unavailable Primary Care Provider Unavailabl e Encounter Details Date Type Department Care Team (Late st Contact Info) Description 02/08/2019 Transcribed Document [facility] [place] [facility] [place] [address] ProviderYusuf MD [facility] [place] [address] Social History Tobacco Use Types [...] - Historical ProviderMD - 02/08/2019 6:01 AM SCIENTIFIC INFORMATICS PROJECT LEADER Event Note Entered On: 02/08/2019 6:04 EST [...]
--- OUTSIDE RECORDS SUMMARY | 2024-11-17 14:34 | XMS_ITS | Encounter Summary ---
Author Organization [employer] ([place], [place], [place], [place]) Address [address] [place] [address] Care Team Providers Care Public Works Director Name Role Phone Unavailable Primary Care Provider Unavailabl e Encounter Details Date Type Department Care Team (Late st Contact Info) Description 02/08/2019 Transcribed Document [facility] [place] [facility] [place] [address] ProviderYusuf MD [facility] [place] [address] Social History Tobacco Use Types [...] - Historical ProviderMD - 02/08/2019 2:23 PM CONSULTING GROUP ANALYST Patient: FRANKY SCOTT Age: 74 Years Sex: [...] overnight and is now wearing 02 by ND. Psychiatric - patient received some IV Lorazepam overnight for anxiety . She denies any suicidality . Objective Vitals & Measurements T: 36.6 ??C TMIN: 36.3 ??C TMAX: 36.8 ??C HR: 83(Monitored) RR: 16 BP: 143/85 SpO2: 97% WT: 80 kg Physical Exam Patient lying comfortably in bed wearing 02 by ND. Motor - 4/5 in both arms. 2/5 [...]
--- OUTSIDE RECORDS SUMMARY | 2024-11-17 14:34 | XMS_ITS | Encounter Summary ---
Author Organization [employer] ([place], [place], [place], [place]) Address [address] [place] [address] Care Team Providers Care Telecommunications Switch Technician Name Role Phone Unavailable Primary Care Provider Unavailabl e Encounter Details Date Type Department Care Team (Late st Contact Info) Description 02/07/2019 Transcribed Document [facility] [place] Family Medicine Counts include [address] beds at the [facility] [place] [address] ProviderYusuf MD Counts include [address] beds at the [facility] [address] Social History Tobacco Use Types [...] - Yusuf ProviderMD - 02/07/2019 9:04 AM UNDERCAR SPECIALIST On Going Discharge Planning Entered On: 02/07/2019 9:05 EST Performed On: 02/07/2019 9:04 EST by ALECIA GOMEZ RN-Artist Relationship ManagerMarbleizer Progress Note Discharge Arrangements : Patient Post-Acute [...] Meeting Medical Necessity : Yes ALECIA GOMEZ RN-Artist Relationship Manager - 02/07/2019 9:04 EST Narrative Progress Note Narrative Progress Note : CM reviewed chart. RRS 38. Cm to room to met pt. Pt spouse in room. spouse stated that pt is off floor for Xray. Spouse stated that DCP is to discharge home with family. Possible hh if a need. CM will continue to follow for d/c needs. ALECIA GOMEZ, RN-Artist Relationship Manager - 02/07/2019 9:04 EST documented in this encounter Plan of Treatment Not on file documented as of this encounter Visit Diagnoses Not on filedocumented in this encounter
--- OUTSIDE RECORDS SUMMARY | 2024-11-17 14:34 | XMS_ITS | Encounter Summary ---
Author Organization [employer] ([place], [place], [place], [place]) Address [address] [place] [address] Care Team Providers Care Manager Philosophy Name Role Phone Unavailable Primary Care Provider Unavailabl e Encounter Details Date Type Department Care Team (Late st Contact Info) Description 02/07/2019 Transcribed Document [facility] [place] [address] [place] [address] ProviderYusuf MD [facility] [place] [address] Social History Tobacco Use Types [...] - Historical ProviderMD - 02/07/2019 7:58 AM TUBE SKIVER Spiritual Care Short Form Entered On: 02/07/2019 [...]
--- OUTSIDE RECORDS SUMMARY | 2024-11-17 14:34 | XMS_ITS | Encounter Summary ---
Author Organization [employer] ([place], [place], [place], [place]) Address [address] [place] [address] Care Team Providers Care Tower Observer Name Role Phone Unavailable Primary Care Provider Unavailabl e Encounter Details Date Type Department Care Team (Late st Contact Info) Description 02/05/2019 Transcribed Document [facility] [facility] [place] [address] ProviderYusuf MD [facility] [place] [address] Social History Tobacco Use Types [...] - Historical ProviderMD - 02/05/2019 2:38 PM INGOT PASSER Treatment Intervention, PT Entered On: 02/06/2019 11:48 [...] : Occupational Therapist Assisted by, PT : domestic technician/aide Personal Devices : Personal Devices Glasses [...] SIVAKUMAR MCKINLEY PT - 02/06/2019 11:44 EST Mcfp Goals Mobility/Bed Mobility LTG PT Grid Goal [...] 02/06/2019 11:44 EST Electronically signed by Lillian [facility] Conversion Compliance Intern Cerner at 07/07/2022 9:58 PM CDT documented in this encounter Plan of Treatment Not on file documented as of this encounter Visit Diagnoses Not on filedocumented in this encounter
--- OUTSIDE RECORDS SUMMARY | 2024-11-17 14:34 | XMS_ITS | Encounter Summary ---
Author Organization [employer] ([place], [place], [place], [place]) Address [address] [place] [address] Care Team Providers Care It Technical Support Specialist Name Role Phone Unavailable Primary Care Provider Unavailabl e Encounter Details Date Type Department Care Team (Late st Contact Info) Description 02/15/2019 Transcribed Document [facility] [place] Family Medicine [address] [place] [address] ProviderYusuf MD [facility] [place] [address] Social History Tobacco Use Types [...] - Historical ProviderMD - 02/15/2019 2:00 AM CS ASSOCIATE Correctional Case Records Supervisor Details Entered On: 02/15/2019 6:48 EST Performed [...]
--- OUTSIDE RECORDS SUMMARY | 2024-11-17 14:34 | XMS_ITS | Encounter Summary ---
Author Organization [employer] ([place], [place], [place], [place]) Address [address] [place] [address] Care Team Providers Care Pediatric Assistant Name Role Phone Unavailable Primary Care Provider Unavailabl e Encounter Details Date Type Department Care Team (Late st Contact Info) Description 02/07/2019 Transcribed Document [facility] Radiology [address] [place] [address] Anne Peters MD [address] [place] [address] [address] [id number] Social History Tobacco Use Types Packs/Day Years [...] Referring physician Dr. Johan Sue neurology [facility] Chief complaint bilateral upper and lower [...] At risk for sleep apnea / IMO [id number] / Confirmed, Active Problems (3) At risk [...] gallop, S1+ S2 No S3 or S4 Jenkins.. Gastrointestinal: Soft, Non-tender, Non-distended, Normal bowel sounds. [...] (NOV ) Radiology Results (Last 48 hours) [id number] -- 02/05/2019 10:21 MRI Spine Cervical WO [...] cord from the cervicomedullary junction to the [id number]. There is mild enhancement of the cord. [...] broad-based posterior disc bulging at C4-C5. At [id number] is a central to left paracentral disc [...] FLUOROSCOPYHISTORY: Transverse myelitis.ATTENDING PHYSICIAN: Baljit Gee M.D.PHYSICIAN STRIPPER MACHINE OPERATOR: JIMBO Luque-CPROCEDURE: After informed consent was obtained [...]
--- OUTSIDE RECORDS SUMMARY | 2024-11-17 14:34 | XMS_ITS | Referral Summary ---
Author Organization [employer] ([place], [place], [place], [place]) Address [address] [place] [address] Care Team Providers Care Ground Systems Engineer Name Role Phone Unavailable Primary Care [...]
--- OUTSIDE RECORDS SUMMARY | 2024-11-17 14:34 | XMS_ITS | Encounter Summary ---
Author Organization [employer] ([place], [place], [place], [place]) Address [address] [place] [address] Care Team Providers Care Lingo Cleaner Name Role Phone Unavailable Primary Care Provider Unavailabl e Encounter Details Date Type Department Care Team (Late st Contact Info) Description 02/15/2019 Transcribed Document [facility] [place] [facility] [place] [address] ProviderYusuf MD [facility] [place] [address] Social History Tobacco Use Types [...] - Yusuf ProviderMD - 02/15/2019 1:26 PM TAPING MACHINE OPERATOR [facility] [place], [place] [id number] FRANKY DEWITT :1945 Visit Time:02/05/2019 Your Visit [...] next Instructions From Your Care Team Rehabilitation: [facility] spinal cord unit/ / Discharge Summary: [phone] [facility] Transportation: Car with family Follow up with Dr. Sue in 2 weeks. Follow up with Dr. Allen as recommended in 2-3 weeks. Discharge Follow Up Instructions: Follow-Up Appointments Follow Up with BRISEIDA SUE MD-GIBSON When Within 1 month Where: [address] [facility] [facility] [place] [address]- Medications What How Much When Instructions Next [...] ? Manage bowel and bladder problems. ? [place] with mental health problems. ? Manage pain. [...] 02/25/2003 Document Revised: 11/02/2016 Document Reviewed: 05/21/2014 [employer] (MCG) Interactive Patient Education ?? 2019 [employer] (MCG) Inc. Near-Syncope Near-syncope is when you suddenly [...] This can help with dizziness. ??? Take rxsv-krw-xwqvzla and prescription medicines only as told by [...] 08/23/2008 Document Revised: 04/20/2017 Document Reviewed: 11/19/2015 [employer] Interactive Patient Education ?? 2019 [employer] (MCG) Inc. Weakness Weakness is a lack of [...] sleep you need each night. ??? Take xwyb-bki-iwlwyfs and prescription medicines only as told by [...] about working with a physical therapist or adjunct trainer to help you get stronger. ??? [...] 02/17/2009 Document Revised: 04/01/2016 Document Reviewed: 12/26/2015 [employer] (MCG) Interactive Patient Education ?? 2019 [employer]. Transverse Myelitis Transverse myelitis is a condition [...] You may need to see a nervous distribution system operator (neurologist) to have tests, which may include: [...] Follow these instructions at home: ??? Take cpip-axg-ymmfxga and prescription medicines only as told by [...] 02/25/2003 Document Revised: 11/07/2016 Document Reviewed: 08/13/2015 [employer] (MCG) Interactive Patient Education ?? 2019 [employer]. prednisone (PRED lucas zelda Wallsos What is [...] may report side effects to FDA at 1-792-NRV-3166. What other drugs will affect prednisone? Sometimes [...] may affect prednisone. This includes prescription and qqjj-gtz-oxiwqsa medicines, vitamins, and herbal products. Not all [...] to ensure that the information provided by [employer]. ('[employer]') is accurate, up-to-date, and complete, but no guarantee is made to that effect. Drug information contained herein may be time sensitive. [employer] ([employer]) information has been compiled for use by healthcare practitioners and consumers in the [place] and therefore [employer] ([employer]) does not warrant that uses outside of the [place] are appropriate, unless specifically indicated otherwise. Must See Indias drug information does not endorse drugs, diagnose patients or recommend therapy. Must See Indias drug information is an informational resource designed [...] effective or appropriate for any given patient. [facility] does not assume any responsibility for any aspect of healthcare administered with the aid of information [facility] provides. The information contained herein is not intended to cover all possible uses, directions, precautions, warnings, drug interactions, allergic reactions, or adverse effects. If you have questions about the drugs you are taking, check with your doctor, nurse or pharmacist. Copyright 3804-0802 [facility] [employer]. Version: 10.. Revision Date: 06/15/2018. Emergency Awareness [...] Assistance with quitting is available by contacting 7-715-RSSC-NOW. This is a free resource providing counseling, [...] range between ( 0.0 and 7.0 ) Appling #: 0.75 K/uL -- Normal range between ( 0.16 and 1.00 ) Eos #: 0.08 x10(3)/uL -- Normal range between ( 0.00 and 0.80 ) [place] %: 8.5 % -- Normal range between [...] RBC Morphology: Normal ANC #: 3 K/uL [place] Percent Man: 9 % -- Normal range [...] ) Urine Bilirubin Dipstick: Negative Urine Specific [place]: 1.020 -- Normal range between ( 1.005 [...] was given the opportunity to ask questions. Patient/Armhole Baster Hand Name: Patient/Armhole Baster Hand Signature: Relationship to Patient: Clinician/Hospital Armhole Baster Hand Signature: Date: Electronically signed by Magan Snyderh Conversion Fiberglass Boat Assembly Supervisor Cerner at 07/07/2022 9:55 PM CDT documented in this encounter Plan of Treatment Not on file documented as of this encounter Visit Diagnoses Not on filedocumented in this encounter
--- OUTSIDE RECORDS SUMMARY | 2024-11-17 14:35 | XMS_ITS | Encounter Summary ---
Author Organization [employer] ([place], [place], [place], [place]) Address [address] [place] [address] Care Team Providers Care Barley Steeper Name Role Phone Unavailable Primary Care Provider Unavailabl e Encounter Details Date Type Department Care Team (Late st Contact Info) Description 02/06/2019 Transcribed Document [facility] [place] [address] [place] [address] ProviderYusuf MD [facility] [place] [address] Social History Tobacco Use Types [...] - Historical ProviderMD - 02/06/2019 5:00 PM EEG TECHNOLOGIST Chart Check - Review Order Profile Entered [...]
--- OUTSIDE RECORDS SUMMARY | 2024-11-17 14:35 | XMS_ITS | Encounter Summary ---
Author Organization [employer] ([place], [place], [place], [place]) Address [address] [place] [address] Care Team Providers Care Health Physics Technician Name Role Phone Unavailable Primary Care Provider Unavailabl e Encounter Details Date Type Department Care Team (Late st Contact Info) Description 02/05/2019 Transcribed Document [facility] [place] [facility] [place] [address] ProviderYusuf MD [facility] [place] [address] Social History Tobacco Use Types [...] - Historical ProviderMD - 02/05/2019 6:08 PM CONSERVATION OF RESOURCES COMMISSIONER DATE OF CONSULTATION: 02/05/2019 HISTORY OF PRESENT [...] , she had to attend a in [facility] where she and her spent a lot of time walking around [facility] and during that walking trip around [facility], when she tried to get her legs into an SUV, she noticed that both of her legs were weak and she was having trouble lifting her legs up to get into the SUV. When she returned back to [place] in late December, she received another steroid [...] an emergency room in [facility] recently and they let her go home [...] 4. Hydrochlorothiazide. 5. Losartan. 6. Biotin. 7. [place]-3. 8. Potassium. 9. Zoloft. 10. Coenzyme Q. [...] years. SOCIAL HISTORY: The patient lives in [place] with her . She has three children. [...] through XII are intact. Coordination shows intact cciclg-tw-fnjl and kvtf-ca-kpbe. Reflexes are hyperactive throughout at 2 to 3+ with bilaterally upgoing toes. Sensory exam shows intact joint position in both feet. Gait was not tested. LABORATORY DATA: The patient had an MRI scan of her brain done at [facility] on February 02 as being read, showing [...] her . I will follow with you. /[id number] MD ROSIO Leone/ERASMO / ROSIO / MODL /[id number] documented in this encounter Plan of Treatment Not on file documented as of this encounter Visit Diagnoses Not on filedocumented in this encounter
--- OUTSIDE RECORDS SUMMARY | 2024-11-17 14:35 | XMS_ITS | Encounter Summary ---
Author Organization [employer] ([place], [place], [place], [place]) Address [address] [place] [address] Care Team Providers Care Account Resolution Expert Name Role Phone Unavailable Primary Care Provider Unavailabl e Encounter Details Date Type Department Care Team (Late st Contact Info) Description 02/06/2019 Transcribed Document [facility] [place] [facility] [place] [address] ProviderYusuf MD [facility] [place] [address] Social History Tobacco Use Types [...] - Historical ProviderMD - 02/06/2019 2:40 PM ZOO DIRECTOR Patient: FRANKY SCOTT Age: 74 years Sex: Female : 1945 Associated Diagnoses: None Author: ANGELA MCKEON PA-C Status post fluoroscopic guided lumbar puncture. Access was obtained to the thecal sac at the L3-4 vertebral level. 13 mls of clear CSF were removed. Opening pressure = 8. Electronically signed by Onel Snyder Conversion Forest Pathology Associate Professor Ana at 07/07/2022 9:50 PM CDT documented in this encounter Plan of Treatment Not on file documented as of this encounter Visit Diagnoses Not on filedocumented in this encounter
--- OUTSIDE RECORDS SUMMARY | 2024-11-17 14:35 | XMS_ITS | Encounter Summary ---
Author Organization [employer] ([place], [place], [place], [place]) Address [address] [place] [address] Care Team Providers Care Director Medical Science Name Role Phone Unavailable Primary Care Provider Unavailabl e Encounter Details Date Type Department Care Team (Late st Contact Info) Description 02/05/2019 Transcribed Document [facility] [place] [facility] [place] [address] ProviderYusuf MD [facility] [place] [place] [address] Social History Tobacco Use Types [...] - Historical ProviderMD - 02/05/2019 10:38 AM SAP HANA ARCHITECT Education-(VTE) / (DVT) Entered On: 02/05/2019 17:17 [...]
--- OUTSIDE RECORDS SUMMARY | 2024-11-17 14:35 | XMS_ITS | Encounter Summary ---
Author Organization [employer] ([place], [place], [place], [place]) Address [address] [place] [address] Care Team Providers Care Corn Cutter Name Role Phone Unavailable Primary Care Provider Unavailabl e Encounter Details Date Type Department Care Team (Late st Contact Info) Description 02/06/2019 Transcribed Document [facility] [place] [facility] [place] [address] ProviderYusuf MD [facility] [place] [address] Social History Tobacco Use Types [...] - Historical ProviderMD - 02/06/2019 3:18 PM LOG HANDLING EQUIPMENT OPERATOR Treatment Intervention, OT Entered On: 02/08/2019 13:07 [...] : 02/05/2019 10:21 Co-treated by, OT : virtual assistant for advertisers (SALES MGR) Personal Devices : Personal Devices Glasses Assistive [...] RD FRENCH COTA - 02/08/2019 12:59 EST Master Control Operator Goals, OT Grooming LTG Grid Goal #1 [...] rehabilitation RD FRENCHMAGDY - 02/08/2019 12:59 EST [place] [facility] OT Charges OT Ther Activities Ea 15 Min : 2 ELEANOR FRENCHMAGDY GASCA - 02/08/2019 12:59 EST documented in this encounter Plan of Treatment Not on file documented as of this encounter Visit Diagnoses Not on filedocumented in this encounter
--- OUTSIDE RECORDS SUMMARY | 2024-11-17 14:35 | XMS_ITS | Encounter Summary ---
Author Organization [employer] ([place], [place], [place], [place]) Address [address] [place] [address] Care Team Providers Care Money Manager Name Role Phone Unavailable Primary Care Provider Unavailabl e Encounter Details Date Type Department Care Team (Late st Contact Info) Description 02/06/2019 Transcribed Document [facility] [place] [address] [place] [address] ProviderYusuf MD [facility] [place] [address] Social History Tobacco Use Types [...] - Historical ProviderMD - 02/06/2019 5:00 AM SURGICAL PROCESSOR Chart Check - Review Order Profile Entered On: 02/06/2019 4:09 EST Performed On: 02/06/2019 5:00 EST by Aicha Logan, RN Chart Check Powerplans Initiated/Discontinued as Appropriate : Yes All Active Orders Reviewed : Yes Aicha Logan RN - 02/06/2019 4:09 EST Electronically signed by Lillian [facility] Conversion Supervisor Gluing Cerner at 07/07/2022 9:53 PM CDT documented in this encounter Plan of Treatment Not on file documented as of this encounter Visit Diagnoses Not on filedocumented in this encounter
--- OUTSIDE RECORDS SUMMARY | 2024-11-17 14:35 | XMS_ITS | Encounter Summary ---
Author Organization [employer] ([place], [place], [place], [place]) Address [address] [place] [address] Care Team Providers Care Bundle Sorter Name Role Phone Unavailable Primary Care Provider Unavailabl e Encounter Details Date Type Department Care Team (Late st Contact Info) Description 02/05/2019 Transcribed Document [facility] [place] Family Medicine [facility] of [facility] [place] [address] ProviderYusuf MD [place] [facility] [place] [address] Social History Tobacco Use Types [...] - Historical ProviderMD - 02/05/2019 10:38 AM PRODUCT DEVELOPMENT MANAGER Evaluation, Occupational Therapy Entered On: 02/06/2019 15:17 [...] IVANIA BIRD OTR/Leeann 02/06/2019 15:12 EST Hand Fundraising Consultant Test : Bilateral hand flesher strength WFL IVANIA BIRD OTR/Leeann 02/06/2019 15:12 [...] activities IVANIA BIRD OTR/Leeann 02/06/2019 15:12 EST Director Online Marketing Goals, OT Grooming LTG Grid Goal #1 Activity : Grooming Assist : Independent, modified Date to Meet : 02/20/2019 EST Goal Status : Initial goal Comment : Standing up at sink IVANIA BIRD OTR/Leeann 02/06/2019 15:12 EST Bathing LTG Grid Goal #1 Activity : Bathing Assist : Independent, modified Date to Meet : 02/20/2019 EST Goal Status : Initial goal IVANAI BIRD OTR/Leeann 02/06/2019 15:12 EST Dressing, Lower [...] IVANIA BIRD, OTR/L - 02/06/2019 15:12 EST Electronically signed by Lillian, Magan Conversion Tax Compliance Representative Cerner at 07/07/2022 9:56 PM CDT documented in this encounter Plan of Treatment Not on file documented as of this encounter Visit Diagnoses Not on filedocumented in this encounter
--- OUTSIDE RECORDS SUMMARY | 2024-11-17 14:35 | XMS_ITS | Encounter Summary ---
Author Organization [employer] ([place], [place], [place], [place]) Address [address] [place] [address] Care Team Providers Care Communications Field Technician Name Role Phone Unavailable Primary Care Provider Unavailabl e Encounter Details Date Type Department Care Team (Late st Contact Info) Description 02/05/2019 Transcribed Document [facility] [place] [address] [place] [address] ProviderYusuf MD [facility] [place] [address] Social History Tobacco Use Types [...] - Historical ProviderMD - 02/05/2019 5:00 PM CONTACT CENTER MANAGER Chart Check - Review Order Profile [...]
--- OUTSIDE RECORDS SUMMARY | 2024-11-17 14:35 | XMS_ITS | Encounter Summary ---
Author Organization [employer] ([place], [place], [place], [place]) Address [address] [place] [address] Care Team Providers Care Cloth Weaver Name Role Phone Unavailable Primary Care Provider Unavailabl e Encounter Details Date Type Department Care Team (Late st Contact Info) Description 02/06/2019 Transcribed Document [facility] [place] [facility] [place] [address] ProviderYusuf MD [facility] [place] [address] Social History Tobacco Use Types [...] - Yusuf ProviderMD - 02/06/2019 11:41 AM REGISTERED DENTAL ASSISTANT RDA Initial Discharge Planning Entered On: 02/06/2019 11:49 EST Performed On: 02/06/2019 11:41 EST by DELORIS MCDONALD, Crm Consultant Initial Assessment I Previously Documented Living Environment [...] Patient's Home Caregiver Medical Durable Power of Hand Washer Name : no Legal Guardian : No Is Guardianship Needed : No DELORIS MCDONALD Crm Consultant - 02/06/2019 11:41 EST Initial Assessment II Sensory and Motor Deficits : Weakness Current Home Treatments and Equipment : Cane, Walker DELORIS MCDONALD Crm Consultant - 02/06/2019 11:41 EST Discharge Needs I [...] Home Health, Short term rehabilitation DELORIS MCDONALD Crm Consultant - 02/06/2019 11:41 EST Narrative Note Narrative Note : Talked w/ this 74 yr old W F sent as a direct admit from Dr Boyer's neurology office. Pt has tingling and weakess of both upper and lower extremities as well as inability to control bowel or bladder. Brain imaging revealed mye;opathy and pt admitted for further workup. [facility], is active. Just recently started [...] RRS is low @ 38. DELORIS MCDONALD Crm Consultant - 02/06/2019 11:41 EST documented in this encounter Plan of Treatment Not on file documented as of this encounter Visit Diagnoses Not on filedocumented in this encounter
--- OUTSIDE RECORDS SUMMARY | 2024-11-17 14:35 | XMS_ITS | Encounter Summary ---
Author Organization [employer] ([place], [place], [place], [place]) Address [address] [place] [address] Care Team Providers Care Ssis Ssrs Developer Name Role Phone Unavailable Primary Care Provider Unavailabl e Encounter Details Date Type Department Care Team (Late st Contact Info) Description 02/05/2019 Transcribed Document [facility] [place] [facility] [place] [address] ProviderYusuf MD [facility] [place] [address] Social History Tobacco Use Types [...] - Historical ProviderMD - 02/05/2019 10:38 AM CLAIMS ADJUSTER CROP Evaluation, Physical Therapy Entered On: 02/05/2019 14:38 [...] SAIMA CURRY, PT - 02/05/2019 14:32 EST Acid Recovery Operator Goals Mobility/Bed Mobility LTG PT Grid Goal [...]
--- OUTSIDE RECORDS SUMMARY | 2024-11-17 14:35 | XMS_ITS | Encounter Summary ---
Author Organization [employer] ([place], [place], [place], [place]) Address [address] [place] [address] Care Team Providers Care Shore Hand Dredge Or Barge Name Role Phone Unavailable Primary Care Provider Unavailabl e Encounter Details Date Type Department Care Team (Late st Contact Info) Description 02/05/2019 Transcribed Document [facility] [place] Family Medicine [facility] [place] [address] ProviderYusuf MD [facility] [place] [address] Social History Tobacco Use Types [...] - Historical ProviderMD - 02/05/2019 10:16 AM SPEECH LANGUAGE PATHOLOGY ASSISTANT Admission History, Adult Entered On: 02/05/2019 [...] From : Patient, Spouse Primary Language : Czech Preferred Communication Mode : Verbal Communication Barrier [...] Level : 46 or > High Risk Graham Fall Interventions : Adequate lighting, Assistive devices [...] Source : Measured Height Entry Format : [place] Height, Feet : 5 ft(Converted to: 152 cm, 60 Inch) Height, Inches : 5 Inch(Converted to: 0 ft 5 Inch, 12.70 cm) Clinical Height : 165.1 cm Weight Source : Bed scale Weight Entry Format : [place] Clinical Dosing Weight : 79.09 kg Weight, Pounds : 174 lb Body Surface Area (BSA) : 1.87 m2 Body Mass Index : 29 kg/m2 (HI) [place]ountain Body Weight : 57 kg SAVANNA VARGAS [...] SAVANNA VARGAS RN - 02/05/2019 11:27 EST [place] Suicide Severity Rating Scale (C-SSRS) CSSRS Past [...]
--- OUTSIDE RECORDS SUMMARY | 2024-11-17 14:35 | XMS_ITS | Encounter Summary ---
Author Organization [employer] ([place], [place], [place], [place]) Address [address] [place] [address] Care Team Providers Care Cat And Dog Bather Name Role Phone Unavailable Primary Care Provider Unavailabl e Encounter Details Date Type Department Care Team (Late st Contact Info) Description 02/05/2019 Transcribed Document [facility] [place] [address] ProviderYus[place] [address] Social History Tobacco Use Types [...] - Historical ProviderMD - 02/05/2019 10:39 AM NURSING EDUCATOR Consult Phone Call Documentation Entered On: 02/05/2019 17:41 EST Performed On: 02/05/2019 10:39 EST by SAVANNA VARGAS RN Phone Call for Consults Consult Reason : dr weiss here to see pt SAVANNA VARGAS RN - 02/05/2019 17:41 EST Electronically signed by Lillian [facility] Conversion Breaker Machine Operator Cerner at 07/07/2022 9:56 PM CDT documented in this encounter Plan of Treatment Not on file documented as of this encounter Visit Diagnoses Not on filedocumented in this encounter
--- OUTSIDE RECORDS SUMMARY | 2024-11-17 14:35 | XMS_ITS | Encounter Summary ---
Author Organization [employer] ([place], [place], [place], [place]) Address [address] [place] [address] Care Team Providers Care Machine Loader Name Role Phone Unavailable Primary Care Provider Unavailabl e Encounter Details Date Type Department Care Team (Late st Contact Info) Description 02/06/2019 Transcribed Document [facility] [place] Family [place] [facility] [place] [address] ProviderYusuf MD [facility] [place] [address] Social History Tobacco Use Types [...] - Historical ProviderMD - 02/06/2019 9:20 AM CITY ALDERMAN UM Authorization Entered On: 02/06/2019 9:20 EST Performed On: 02/06/2019 9:20 EST by VALENTINA GOODE Rn-Utilization Review Primary Insurance Authorization Authorization and Policy Numbers : Insurance 1 Health Plan: MEDICARE Policy Number: [id number] Authorization Number: Insurance 2 Health Plan: [employer] Policy Number: [id number] Authorization Number: Insurance Primary Name : MEDICARE Policy Number: [id number] [place] [employer] [place] Policy Number: [id number] Historical Authorization Comments-Primary : No Authorization Comments Found VALENTINA GOODE Rn-Utilization Review - 02/06/2019 9:20 EST Electronically signed by Lillian [facility] Conversion Manpower Development Specialist Cerner at 07/07/2022 9:58 PM CDT documented in this encounter Plan of Treatment Not on file documented as of this encounter Visit Diagnoses Not on filedocumented in this encounter
--- OUTSIDE RECORDS SUMMARY | 2024-11-17 14:35 | XMS_ITS | Encounter Summary ---
Author Organization [employer] ([place], [place], [place], [place]) Address [address] [place] [address] Care Team Providers Care Faucet Polisher Name Role Phone Unavailable Primary Care Provider Unavailabl e Encounter Details Date Type Department Care Team (Late st Contact Info) Description 02/05/2019 Transcribed Document [facility] [place] [facility] [place] [address] ProviderYusuf MD [facility] [place] [address] Social History Tobacco Use Types [...] - Yusuf ProviderMD - 02/05/2019 11:36 AM FISHER LINE Provider Notification Entered On: 02/06/2019 14:55 EST Performed On: 02/06/2019 11:36 EST by ROLY MEDEIROS RN Provider Notification Provider Notified of Concerns/Results : Change in status ROLY MEDEIROS RN - 02/06/2019 14:55 EST documented in this encounter Plan of Treatment Not on file documented as of this encounter Visit Diagnoses Not on filedocumented in this encounter
--- OUTSIDE RECORDS SUMMARY | 2024-11-17 14:35 | XMS_ITS | Encounter Summary ---
Author Organization [employer] ([place], [place], [place], [place]) Address [address] [place] [address] Care Team Providers Care Plate Corrector Name Role Phone Unavailable Primary Care Provider Unavailabl e Encounter Details Date Type Department Care Team (Late st Contact Info) Description 02/06/2019 Transcribed Document [facility] Radiology 1 [place] [address] Anne Peters MD [address] [place] [address] [place] [id number] Social History Tobacco Use Types Packs/Day Years [...] discharge Referring physician Dr. Johan Sue neurology [facility] Chief complaint bilateral upper and [...] At risk for sleep apnea / IMO [id number] / Confirmed, Active Problems (3) At risk [...] (FEB 05) Radiology Results (Last 48 hours) [id number] -- 02/05/2019 10:21 MRI Spine Cervical WO [...] cord from the cervicomedullary junction to the C4-M3hzpvf. There is mild enhancement of the cord. [...] broad-based posterior disc bulging at C4-C5. At C6-C1hdelw is a central to left paracentral disc [...]
--- OUTSIDE RECORDS SUMMARY | 2024-11-17 14:35 | XMS_ITS | Patient Health Record ---
[facility] Address [address] [facility] [address] [place] [id number] Care Team Providers Care Community Nurse Name Role Phone Jensen Santiago Primary Care Provider [phone] Maryanne Malik Unavailable [phone] Allergies Allergen (clinical drug ingredient) Drug/Non Drug [...] Interpretation:sensitive Performing Lab: Notes/Report: Test performed by [facility] , [address], [place] [address] Danilo Duran MD, Reed Or Wind Instrument Repairer CLIA: [id number] Specimen Source Urine - Cath Culture, Urine See Below See Microbiol ogy Report Escherichia coli ESBL 50,000-100,000 CFU /ml Escherichia coli ESBL This isolate is a confirmed ESBL (Extended Spectrum Beta-Lactamase) moving picture producer and should be considered clinically resistant [...] Interpretation: Performing Lab: Notes/Report: Test performed by [facility] [address] , [address], [place] [address] Danilo Duran MD, Reed [employer] Instrument Repairer CLIA: [id number] Specimen Source Urine - Cath Culture, Urine See Below See Microbiol ogy Report Klebsiella pneumoniae ESBL 25,000-50,000 CFU/ml Klebsiella pneumoniae ESBL This isolate is a confirmed ESBL (Extended Spectrum Beta-Lactamase) moving picture producer and should be considered clinically resistant [...] Coli Performing Lab: Notes/Report: Test performed by [facility], [address] , [place] [address] Danilo Duran MD, Reed [employer] Wind Instrument Repairer JENN: [id number] Specimen Source Urine - Void Culture, Urine See Below See Microbiol ogy Report Escherichia coli ESBL 50,000-100,000 CFU /ml Escherichia coli ESBL This isolate is a confirmed ESBL (Extended Spectrum Beta-Lactamase) moving picture producer and should be considered clinically resistant [...] 1.015 Ketone neg Bili neg Gluc neg Covid test (in house) Reviewed date:12/09/2023 10:22:50 AM Interpretation: Performing Lab: Notes/Report: Result: Neg TEN-UTI panel Reviewed date:12/12/2023 12:59:00 PM Interpretation:Negative Performing Lab: Notes/Report: Negative CBC Fingerstick (in house) Reviewed date:12/09/2023 10:22:42 [...] - 38 plat 200 100 - 400 Urinalysis - Inhouse Reviewed date:12/09/2023 10:22:34 AM Interpretation: Performing Lab: Notes/Report: Color/Clarity yellow/cloudy Leuk 1+ Nitrite neg Urobili 3.2 Protein neg pH 5.5 Blood neg Sp. Gr. 1.015 Ketone neg Bili neg Gluc neg Urinalysis - Inhouse Reviewed date:01/02/2024 04:09:19 PM Interpretation: Performing Lab: Notes/Report: Color/Clarity yellow/clear Leuk trace Nitrite neg Urobili 3.2 Protein neg pH 6.0 Blood neg Sp. Gr. 1.010 Ketone neg Bili neg Gluc neg TEN-UTI panel Reviewed date:2024 11:51:57 AM Interpretation:Rejected. See 01/09/24 Order Performing Lab: Notes/Report: Rejected. See 01/09/24 Order TEN-UTI panel Reviewed date:10/19/2024 08:23:33 AM Interpretation:Klebsiella [...] Negative result negative Urinalysis - Inhouse Reviewed date:03/10/2024 11:06:10 AM Interpretation: Performing Lab: Notes/Report: Color/Clarity orange Leuk 3+ Nitrite pos Urobili 16 Protein 2+ pH 5.0 Blood trace-intact Sp. Gr. 1.020 Ketone trace Bili neg Gluc trace P-Culture, Urine Reviewed date:03/13/2024 10:55:09 AM Interpretation:Klebsiella pneumoniae Performing Lab: Notes/Report: Test performed by [facility] [address] [place] [address] , [address], [place] [address] Danilo Duran MD, Reed [employer] Wind Instrument Repairer CLIA: [id number] Specimen Source Urine - Void Culture, Urine See Below See Microbiol ogy Report Klebsiella pneumoniae ESBL 50,000-100,000 CFU/ml Klebsiella pneumoniae ESBL This isolate is a confirmed ESBL (Extended Spectrum Beta-Lactamase) moving picture producer and should be considered clinically resistant [...] Lab: Notes/Report: Abnormal Urinalysis - Inhouse Reviewed date:07/10/2024 05:16:27 PM Interpretation: Performing Lab: Notes/Report: Color/Clarity yellow/cloudy Leuk 3+ Nitrite Pos Urobili 3.2 Protein 1+ pH 6.0 Blood 1+ Sp. Gr. 1.015 Ketone Neg Bili Neg Gluc Neg TEN-UTI panel Reviewed date:07/13/2024 04:21:06 PM Interpretation:E. Coli Performing Lab: Notes/Report: E. Coli Urinalysis - Inhouse Reviewed date:07/17/2024 08:11:10 AM Interpretation: Performing Lab: Notes/Report: Color/Clarity yellow/cloudy Leuk 2+ Nitrite Pos Urobili 3.2 Protein 3+ pH 6.0 Blood 2+ Sp. Gr. 1.020 Ketone Trace Bili Neg Gluc Neg TEN-UTI panel Reviewed date:01/11/2024 02:47:23 PM Interpretation:Abnormal Performing Lab: Notes/Report: Abnormal Urinalysis - Inhouse Reviewed date:06/12/2024 02:41:39 PM Interpretation: Performing Lab: Notes/Report: Color/Clarity yellow/cloudy Leuk 2+ Nitrite neg Urobili 3.2 Protein 1+ pH 5.5 Blood trace Sp. Gr. 1.015 Ketone neg Bili neg Gluc neg P-Culture, Urine Reviewed date:06/15/2024 01:26:54 PM Interpretation: Performing Lab: Notes/Report: Test performed by [facility], [address] , [facility], [place] [address] Danilo Duran MD, Reed [employer] Wind Instrument Repairer JENN: [id number] Specimen Source Urine - Void Culture, Urine See Below See Microbiol ogy Report Klebsiella pneumoniae ESBL 50,000-100,000 CFU/ml Klebsiella pneumoniae ESBL This isolate is a confirmed ESBL (Extended Spectrum Beta-Lactamase) moving picture producer and should be considered clinically resistant [...] S=SUSCEPTIBLE I=INTERMEDIATE R=RESISTANT Urinalysis - Inhouse Reviewed date:03/23/2024 03:23:26 PM [...] 02:41:27 PM Interpretation:Negative Performing Lab: Notes/Report: Negative Reason For Referral Diagnosis 1 Neurogenic bladder ( N31.9) Referral Organization [facility] Referring Provider First Name Jensen Referring Provider Last Name Holderness Referring Provider [facility] Referred Provider Adam Kingston Referred Provider Specialty Urology General Notes Ninfa Correa 05/18/19 11:15:42 AM > faxed referral to 's office Referral Priority Routine Reason [facility] Diagnosis 1 Chronic UTI (N39.0) Diagnosis 2 Urinary retention (R 33.9) Diagnosis 3 Urinary incontinence in female (R32) Diagnosis 4 Bladder spasms (N32. 89) Referral Organization [facility] Referring Provider First Name Jensen Referring Provider Last Name Pamela Referring Provider [facility] Referred Provider [facility] Urology General Notes Ninfa Corrae 2024 10:53:56 AM > faxed referral to [facility] Referral Priority Routine Diagnosis 1 Urinary retention (R 33.9) Diagnosis 2 Chronic UTI (N39.0) Diagnosis 3 Other urinary incont inence (N39.498) Diagnosis 4 Neurogenic bladder ( N31.9) [facility] Referring Provider First Name Jensen Referring Provider Last Name Pamela Referring Provider [facility] Referred Provider Fifi [place] General Notes Ninfa Correa 2024 08:45:29 AM > faxed referral to [facility] Urogynecology Referral Priority Routine Medications Medication [...] Vaccine Route Administration Date Status Comme nts xFluzone High Dose-private (65yr&older) IM Intramuscular 02/20/2014 Administered xFluzone (6mos and older)-trivalent IM Intramuscular 02/05/2013 Administered xFlu shot- 6months-36 months of hdb-SKBV-LLGA-trivalent Unknown 02/08/2016 Administered Tetanus Tdap-Adacel (over 7yrs) IM Intramuscular 05/11/2018 Administered Prevnar (PCV13) IM Intramuscular 05/11/2018 Administered PNEUMOVAX 23 VACCINE IM Intramuscular 06/29/2019 Administe red Fluzone High Dose (65yr and older) Unknown 02/21/2017 Administered Fluzone High Dose (65yr and older) IM Intramuscular 01/14/2018 Administered Fluzone High Dose (65yr and older) IM Intramuscular 05/27/2019 Administered Fluzone High Dose (65yr and older) IM Intramuscular 11/19/2019 Administered Fluzone High Dose (65yr and older) IM Intramuscular 12/02/2020 Administered Fluzone High Dose (65yr and older) Unknown 01/29/2022 Administered COVID 19 Pfizer Unknown 05/24/2020 Administered COVID 19 Pfizer Unknown 06/12/2020 Administered COVID 19 Pfizer Unknown 01/28/2021 Administered Problems Problem Type SNOMED Code ICD Code Onset Dates Problem Status W/U Status Risk Notes Problem Vitamin D deficiency (28065827) Vitamin D deficiency (E55.9) Active confirmed Problem Essential hypertension (20826534) Essential hypertension (I10) Active confirmed Problem Anxiety (96137771) Anxiety (F41.9) Active confi rmed Problem Urinary retention (095756316) Urinary retention (R33.9) Active confirmed Problem Osteopenia (025918737) Osteopenia (M85.80) Active confirmed Problem Neurogenic bladder (844285493) Neurogenic bladder (N31.9) Active confirmed Problem Overactive urinary bladder (disorder) (426303825) OAB (overactive bladder) (N32.81) Active confirmed Problem Mixed hyperlipidemia (131873044) Mixed hyperlipidemia (E78.2) Active confirmed Problem Urge incontinence of urine (70194413) Urge incontinence (N39.41) Active confirmed Problem Incontinence of feces (70110803) Full incontinence of feces (R15.9) Active confirmed Problem History of polyp of colon (situation) (700589304) Hx of colonic polyps (Z86.010) Active confirmed Problem Neuropathy (509671501) Neuropathy (G62.9) Active confirmed Problem Ataxia (17767002) Ataxia (R27.0) Active confirm ed Problem Claudication (10992969) Claudication (I73.9) Active confirmed Problem Urinary tract infectious disease (57537026) Chronic UTI (N39.0) Active confirmed Problem Body mass index 30.00 to 34.99 (479913183207967) BMI 31.0-31.9,adult (Z68.31) Active confirmed Problem Body mass index 30.00 to 34.99 (354260851669361) BMI 34.0-34.9,adult (Z68.34) Active confirmed Problem Spasm of bladder (815389124) Bladder spasms (N32.89) Active confirmed Problem Urge incontinence of urine (45016600) Urge incontinence of urine (N39.41) Active confirmed Problem Raynaud's disease (670110608) Raynaud's disease without gangrene (I73.00) Active confirmed Problem Obesity (082093363) Non morbid obesity (E66.9) Active confirmed Problem Arthritis of left knee (0197310519795091) Arthritis of left knee (M17.12) Active confirmed Problem Urinary incontinence (274427845) Other urinary incontinence (N39.498) Active confirmed Problem Seasonal allergic rhinitis (920186614) Seasonal allergic rhinitis, unspecified trigger (J30.2) Active confirmed Problem Cervical myelopathy (988169360) Cervical myelopathy (G95.9) Active confirmed Problem 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 Problem 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 Problem Gastroesophageal reflux disease (935904604) Gastroesophageal reflux disease, unspecified whether esophagitis present (K21.9) Active confirmed Problem Chronic kidney disease stage 3 (disorder) (844438161) Stage 3 chronic kidney disease, unspecified whether stage 3a or 3b CKD (N18.30) Active confirmed Problem Urinary incontinence (606784754) Urinary incontinence in female (R32) Active confirmed Problem Herniation of rectum into vagina (504371169) Rectocele, female (N81.6) Active confirmed Vital Signs Heart Rate 107 /min 11/13/2024 Blood pressure diastolic 70 mm Hg 11/13/2024 Height 65 in 11/13/2024 Blood pressure systolic 132 mm Hg 11/13/2024 Weight 204.4 lbs 11/13/2024 BMI 34.01 kg/m2 11/13/2024 Encounters Encounter Location Date Provider Diagnosis [address] [facility] [address] [place] [id number] 12/08/2023 Jensen Holderness Acute cough R05.1 ; Urinary tract infection without hematuria, site unspecified N39.0 ; Heartburn R12 ; Colon cancer screening Z12.11 and Hx of colonic polyps Z86.010 Tiffany [address] [facility] [address] [place] [id number] 01/02/2024 Jensen Holderness Pyuria R82.81 and Frequency of urination R35.0 Tiffany [address] [facility] [address] [place] [id number] 2024 Jensen Holderness [facility] [address] [facility] [address] [place] [id number] 03/10/2024 Jensen Holderness Urinary tract infect ion without hematuria, site unspecified N39.0 [facility] [address] [facility] [address] [place] [id number] 03/16/2024 Jensen Holderness Acute UTI N39.0 and Exposure to the flu Z20.828 [facility] [address] [facility] [address] [place] [id number] 03/23/2024 Jensen Holderness Recurrent UTI N39.0 and Urge incontinence N39.41 [facility] [address] [facility] [address] [place], [place] [id number] 05/18/2024 Jensen Holderness Urinary tract infect ion, site not specified N39.0 ; Unspecified Escherichia coli [E. coli] as the cause of diseases classified elsewhere B96.20 ; Neurogenic bladder N31.9 and Acute deep vein thrombosis (DVT) of left peroneal vein I82.452 [facility] [address] [facility] [address] [place] [id number] 05/28/2024 Jensen Holderness Chronic UTI N39.0 an d Open wound of right lower extremity, initial encounter S81.801A [facility] [address] [facility] [address] [place] [id number] 06/11/2024 Maryanne Malik UTI (lower urinary t ract infection) N39.0 [facility] [address] [facility] [address] [place] [id number] 06/15/2024 Jensen Holderness Cystitis, unspecifie d without hematuria N30.90 and Klebsiella pneumoniae [K. pneumoniae] as the cause of diseases classified elsewhere B96.1 [facility] [address] [facility] [address] [place] [id number] 07/10/2024 Jensen Holderness Acute cystitis witho ut hematuria N30.00 ; Gastroesophageal reflux disease, unspecified whether esophagitis present K21.9 and BMI 34.0-34.9,adult Z68.34 [facility] [address] [place] [id number] 07/16/2024 Jensen Holderness Chronic UTI N39.0 [facility] [address] [place] [id number] 07/18/2024 Jensen Holderness Chronic UTI N39.0 ; Urinary retention R33.9 ; Urinary incontinence in female R32 ; Bladder spasms N32.89 ; Dermatopolymyositis M33.90 and BMI 34.0-34.9,adult Z68.34 [facility] [address] [place] [id number] 08/24/2024 Jensen Holderness Pelvic pain R10.2 ; Chronic UTI N39.0 and Cook catheter in place Z92.89 [facility] [address] [place] [id number] 10/17/2024 Jensen Holderness Chronic UTI N39.0 ; Pain in left knee M25.562 and Non morbid obesity E66.9 [facility] [address] [place] [id number] 11/05/2024 Jensen Holderness Chronic UTI N39.0 [facility] [address] [place] [id number] 11/13/2024 Jensen Holderness Chronic UTI N39.0 ; Urinary retention R33.9 and Rectocele, female N81.6 [facility] [address] [place] [id number] 01/11/2024 Jensen Holderness [facility] [address] [place] [id number] 01/18/2024 Jensen Holderness [facility] [address] [place] [id number] 02/24/2024 Jensen Holderness Neuropathy G62.9 [facility] [address] [place] [id number] 03/13/2024 Jensen Holderness [facility] [address] [place] [id number] 03/19/2024 Jensen Holderness [facility] [address] [place] [id number] 06/11/2024 Jensen Holderness [facility] [address] [place] [id number] 07/16/2024 Jensen Holderness [facility] [address] [place] [id number] 07/23/2024 Jensen Holderness [facility] [address] [place] [id number] 08/28/2024 Jensen Holderness Chronic UTI N39.0 [facility] [address] [place] [id number] 09/03/2024 Jensen Holderness Neuropathy G62.9 [facility] [address] [place] [id number] 09/03/2024 Jensen Holderness Screening for breast cancer Z12.39 and Screening for osteoporosis Z13.820 [facility] [address] [place] [id number] 09/07/2024 Jensen Holderness Urinary retention R3 3.9 ; Other urinary incontinence N39.498 and Chronic UTI N39.0 [facility] [address] [place] [id number] 10/19/2024 Jensen Holderness [facility] [address] [place] [id number] 10/23/2024 Jensen Holderness [facility] [address] [place] [id number] 10/24/2024 Jensen Holderness [facility] [address] [place] [id number] 11/16/2024 Jensen Holderness Acute UTI N39.0 Assessments Encounter Date Diagnosis (ICD Code) Assessment Notes Treatment Notes Treatment Clinical Notes Section Notes 08/24/2024 Chronic UTI (ICD-10 - N39.0) Patient to follow up with [facility] urology next week 08/24/2024 Pelvic pain (ICD-10 - R10.2) 08/28/2024 Chronic UTI (ICD-10 - N39.0) 09/03/2024 Neuropathy (ICD-10 - G62.9) 09/03/2024 Screening for breast cancer (ICD-10 - Z12.39) 09/07/2024 Other urinary incontinence (ICD-10 - N39.498) 10/17/2024 Pain in left knee (ICD-10 - M25.562) 10/17/2024 Chronic UTI (ICD-10 - N39.0) 11/05/2024 Chronic UTI (ICD-10 - N39.0) 11/13/2024 Urinary retention (ICD-10 - R33.9) Spoke to Dr. Kingston. He recommends awaiting culture and then treat accordingly. Patient may need evaluation for a suprapubic catheter 11/13/2024 Chronic UTI (ICD-10 - N39.0) 09/07/2024 Urinary retention (ICD-10 - R33.9) 11/16/2024 Acute UTI (ICD-10 - N39.0) 12/08/2023 Urinary tract infection without hematuria, site unspecified (ICD-10 - N39.0) 05/18/2024 Urinary tract infection, site not specified (ICD-10 - N39.0) 05/18/2024 Unspecified Escherichia coli [E. coli] as the cause of diseases classified elsewhere (ICD-10 - B96.20) 05/28/2024 Chronic UTI (ICD-10 - N39.0) 05/28/2024 [...] R33.9) 07/18/2024 Chronic UTI (ICD-10 - N39.0) 12/08/2023 Acute cough (ICD-10 [...] Resolved 03/23/2024 Urge incontinence (ICD-10 - N39.41) 05/18/2024 Neurogenic bladder (ICD-10 - N31.9) 12/08/2023 Heartburn (ICD-10 - R12) 07/18/2024 Urinary incontinence in female (ICD-10 - R32) 07/10/2024 BMI 34.0-34.9,adult (ICD-10 - Z68.34) 09/07/2024 Chronic UTI (ICD-10 - N39.0) 11/13/2024 Rectocele, female (ICD-10 - N81.6) Doubt this of any significance to patient's current issues 10/17/2024 Non morbid obesity (ICD-10 - E66.9) Discussed starting [employer] 09/03/2024 Screening for osteoporosis (ICD-10 - Z13.820) 08/24/[address] (ICD-10 - Z92.89) Cook catheter removed in office today. Patient had immediate pain relief. She will use catheters she has at home for intermittent bladder drainage 05/18/2024 Acute deep vein thrombosis (DVT) of left peroneal vein (ICD-10 - I82.452) 12/08/2023 Colon cancer screeni ng (ICD-10 - Z12.11) 07/18/2024 Bladder spasms (ICD- 10 - N32.89) 12/08/2023 Hx of colonic polyps (ICD-10 - Z86.010) 07/18/2024 Dermatopolymyositis (ICD-10 - M33.90) 07/18/2024 BMI 34.0-34.9,adult (ICD-10 - Z68.34) Plan Of Treatment Pending Test Test Name Order Date Bone density 09/03/2024 colonoscopy 12/08/2023 H-CBC 05/18/2024 H-BMP 05/18/2024 Insurance Providers Payer Name Payer Address Payer Phone Subscriber Number Group Number Insured Name Patient Relationship to Insured Coverage Start Date Coverage End Date MEDICARE PART B [address] [address] [place] [id number] Kelli Scott Self - patient is the insured [employer] [address] [address] [place] [id number] Kelli Scott Self - patient is the [...]
--- OUTSIDE RECORDS SUMMARY | 2024-11-17 14:35 | XMS_ITS | Encounter Summary ---
Author Organization [employer] ([place], [place], [place], [place]) Address [address] [place] [address] Care Team Providers Care Car Framer Name Role Phone Unavailable Primary Care Provider Unavailabl e Encounter Details Date Type Department Care Team (Late st Contact Info) Description 02/06/2019 Transcribed Document [facility] Radiology [address] [place] [address] Anne Peters MD [address] [place] [address] [place] [id number] Social History Tobacco Use Types Packs/Day Years [...] PETERS MD-INT Subjective Primary care physician Dr Braldey CRUZ Date of admission 02/05/2019 Date of discharge Referring physician Dr. Johan Sue neurology [facility] Chief complaint bilateral upper and lower [...] At risk for sleep apnea / IMO [id number] / Confirmed, Active Problems (3) At risk [...] gallop, S1+ S2 No S3 or S4 [place].. Gastrointestinal: Soft, Non-tender, Non-distended, Normal bowel sounds. [...] (FEB 05) Radiology Results (Last 48 hours) [id number] -- 02/05/2019 10:21 MRI Spine Cervical WO [...] cord from the cervicomedullary junction to the C4-Y5omowy. There is mild enhancement of the cord. [...] broad-based posterior disc bulging at C4-C5. At C6-Z1jymym is a central to left paracentral disc [...]
--- OUTSIDE RECORDS SUMMARY | 2024-11-17 14:35 | XMS_ITS | Encounter Summary ---
Author Organization [employer] ([place], [place], [place], [place]) Address [address] [place] [address] Care Team Providers Care Assembler Musical Instruments Name Role Phone Unavailable Primary Care Provider Unavailabl e Encounter Details Date Type Department Care Team (Late st Contact Info) Description 02/06/2019 Transcribed Document [facility] [place] [address] ProviderYusuf MD [facility] [place] [address] Social History Tobacco Use Types [...] - Historical ProviderMD - 02/06/2019 3:39 PM ASSOCIATE STORE MANAGER Patient: FRANKY SCOTT Age: 74 Years [...] Meningitis/Encephalitis Panel Myelin Basic Protein, Sendout Pathology Non-Primary Clinician Request RPR Rapid Plasma Reagin Sequential Compression [...] by Lillian, [facility] Conversion [employer] at 07/07/2022 9:59 PM CDT documented in this encounter Plan of Treatment Not on file documented as of this encounter Visit Diagnoses Not on filedocumented in this encounter
--- OUTSIDE RECORDS SUMMARY | 2024-11-17 14:35 | XMS_ITS | Encounter Summary ---
Author Organization [employer] ([place], [place], [place], [place]) Address [address] [place] [address] Care Team Providers Care Snag Grinder Name Role Phone Unavailable Primary Care Provider Unavailabl e Encounter Details Date Type Department Care Team (Late st Contact Info) Description 02/05/2019 Transcribed Document [facility] [place] Family Medicine [facility] [place] [address] ProviderYusuf MD [facility] [place] [address] Social History Tobacco Use Types [...] - Yusuf ProviderMD - 02/05/2019 10:39 AM OPTICAL MECHANIC APPRENTICE Swallow Evaluation Entered On: 02/05/2019 12:20 EST Performed On: 02/05/2019 12:16 EST by KENNA KIM FARM LABORER General Information Visit Type, FARM LABORER : Initial evaluation KENNA KIM SLP - 02/05/2019 12:16 EST Patient Orders : Consult to Speech Language Pathology for Swallow Eval -111 Start: 02/05/19 10:39:00 EST, Routine, For Swallow Eval and Treat - BASHIR RAYMOND MD-INT Admission Date : Admission Date/Time: 02/05/19 10:21:00 KENNA KIM, ASHER - 02/05/2019 12:21 EST Medical Chart Reviewed, FARM LABORER : Yes KENNA KIM SLP - 02/05/2019 12:16 EST Personal Devices : Personal Devices Glasses Assistive Devices : Assistive Devices No Devices Recorded Active Diagnoses : 02/05/2019 12:00 Disease of spinal cord, unspecified KENNA KIM SLP - 02/05/2019 12:21 EST Therapy Diagnosis, FARM LABORER : normal oropharyngeal skills Previous Swallow Precautions : no previous ST in EMR Diet/Intake Prior to Current Admission : reg/thin Diet/Intake During Current Admission : reg/thin Intubation Comment, FARM LABORER : n/a KENNA KIM SLP - 02/05/2019 [...] 12:16 EST General Status Patient Received Status, FARM LABORER : Long sitting in bed Patient Left Status, FARM LABORER : Long sitting in bed KENNA KIM [...] Oral Mechanism for Daily Living : Intact FARM LABORER Cough : Strong Facial Appearance: : Symmetrical [...] these records, Dr. Brunson sent her to [facility]. ST is asked to see for [...] - 02/05/2019 12:21 EST Therapy Indication Assessment FARM LABORER Indicated : No FARM LABORER Not Indicated : At prior level of function KENNA KIM SLP - 02/05/2019 12:21 EST Education Barriers To Learning : None evident Individuals Taught : Patient, Spouse KENNA KIM SLP - 02/05/2019 12:21 EST FARM LABORER Education Assessment Grid 1 Aspiration : Verbalizes understanding Diet Recommendation : Verbalizes understanding KENNA KIM SLP - 02/05/2019 12:21 EST [place] FARM LABORER Charges Evaluation Swallowing Function : 1 KENNA KMI, FARM LABORER - 02/05/2019 12:21 EST Anticipated Discharge Needs, FARM LABORER Anticipated Discharge to : Home, independently, Home, with home health Recommend Continued Therapy at Discharge : No KENNA KIM, ASHER - 02/05/2019 12:21 EST Electronically signed by Lillian [facility] Conversion Airfield Services Officer Cerner at 07/07/2022 10:01 PM CDT documented in this encounter Plan of Treatment Not on file documented as of this encounter Visit Diagnoses Not on filedocumented in this encounter
--- OUTSIDE RECORDS SUMMARY | 2024-11-17 14:35 | XMS_ITS | Encounter Summary ---
Author Organization [employer] ([place], [place], [place], [place]) Address [address] [place] [address] Care Team Providers Care Charge Master Specialist Name Role Phone Unavailable Primary Care Provider Unavailabl e Encounter Details Date Type Department Care Team (Late st Contact Info) Description 02/06/2019 Transcribed Document [facility] [place] [facility] [place] [address] ProviderYusuf MD [facility] [place] [address] Social History Tobacco Use Types [...] - Historical ProviderMD - 02/06/2019 2:00 AM SOCIAL SERVICES TECHNICIAN Pin Sticker Details Entered On: 02/06/2019 1:49 EST Performed [...]
--- OUTSIDE RECORDS SUMMARY | 2024-11-17 14:35 | XMS_ITS | Encounter Summary ---
Author Organization [employer] ([place], [place], [place], [place]) Address [address] [place] [address] Care Team Providers Care Criminal Researcher Name Role Phone Unavailable Primary Care Provider Unavailabl e Encounter Details Date Type Department Care Team (Late st Contact Info) Description 02/05/2019 Transcribed Document [facility] Radiology 1 [place] [address] Anne Peters MD [address] [place] [address] [address] [place] [id number] Social History Tobacco Use Types Packs/Day Years [...] Q4H, PRN: Nausea heparin: 5,000 Units, SubCutaneous, [id number] hydrALAZINE: 5 mg, IV Push, Q4H, PRN: Hypertension morphine: 2 mg, IV Push, Q2H, PRN: Pain (Severe 7-10), No qualifying data available , Medications (8) Active Scheduled: (2) famotidine 20 mg tab 20 mg 1 Tab, Oral, Q12H heparin 5,000 Units, SubCutaneous, [id number] Continuous: (0) PRN: (6) acetaminophen 325 mg [...] gallop, S1+ S2 No S3 or S4 [place].. Gastrointestinal: Soft, Non-tender, Non-distended, Normal bowel sounds. [...]
[2024-11-17 14:53] VITALS: BP 113/84; PULSE 79; RESP 17; TEMP 36.6; O2SAT 100
[2024-11-17] MEDS: ERTAPENEM SODIUM 1 GM VIAL IM (14:55)
[2024-11-17 15:11] LABS: Chloride 105 mmol/L (98-107)
[2024-11-17 15:12] LABS: Potassium 3.9 mmoL/L (3.5-5.1); Sodium 139 mmol/L (136-145)
[2024-11-17 15:14] LABS: Blood Urea Nitrogen 21 mg/dl (7-17); Creatinine,Serum 1.00 mg/dl (0.52-1.04); Estimated Glomerular Filt Rate 54 ml/min (>60); GFR (African American) 65 ML/MIN (>60)
[2024-11-17 15:15] LABS: Anion Gap 9.9 mEq/L (5-15); Calcium 9.7 mg/dl (8.4-10.2); Carbon Dioxide 28 mmol/L (22.0-30.0); Glucose 94 mg/dl (74-100)
== END 2024-11-17 23:59 | disposition home or self-care (01) ==
LOC: INF 14:30
PROVIDERS: PCP Family Medicine; Visit Provider Family Medicine
DX: N39.0 Urinary tract infection, site not specified (principal)
CPT/HCPCS: 36415; 80048; 96372; J1335

== ENCOUNTER 2024-11-18 12:50 | Outpatient (CLI) | payer MEDICARE, OTHER, SELFPAY ==
--- OUTSIDE RECORDS SUMMARY | 2024-10-17 06:15 | XMS_ITS ---
Author Organization [facility] Address [address] [place] [id number] Care Team Providers Care Air Analyst Name Role Phone Reece Santiagoian Primary Care Provider Allergies Allergen (clinical drug ingredient) Drug/Non Drug Allergy documented on EMR Reaction Allergy Type Onset Date Status Information temporarily unavailable Lisinopril hives Drug Allergy Active Information temporarily unavailable Penicillin rash Drug Allergy Active Results Component [...] Problem Status W/U Status Risk Notes Problem Information temporarily unavailable Non morbid obesity (E66.9) Active confirmed Vital Signs Weight 207.8 lbs 10/17/2024 Blood pressure systolic 122 mm Hg 10/18/19 25 Blood pressure diastolic 76 mm Hg 025 Heart Rate 88 /min 10/17/2024 Height 65 in 10/17/2024 BMI 34.58 kg/m2 10/17/2024 Encounters Encounter Location Date Provider Diagnosis [facility] [address] [facility] [address] [place] [id number] 10/17/2024 Jensen Neptune Chronic UTI N39.0 ; Pain in left [...] * Lan DEWITTOB: 7 (79 yo F)Acc No.[id number]:10/17/2024 Progress Notes Patient: Moody CHA Kelli Provider: Kacie Santiago M.D. :1945 A ge:79 Y S ex:Female Date:10/17/2024 Address:[address] [place] [address] KHOI PECK, [id number] Subjective: * Chief Complaints: * 1 . [...] arthritic changes in knee, sent to to inform.MarlineHenrietta 11/05/2024 01:48:48 PM EDT > pt informed. 3.?Non morbid obesity? Notes: Discussed starting Wegovy?? * Procedure Codes: G 2211 Complex e/[place], [address] Urinalysis, no micro, 1036F TOBACCO NON- USER, G8783 BP SCR PRFRM RCMDD DEFIND SCR INTVL, G8752 MOST RECENT SYSTOLIC BP < 140MM HG, G8754 MOST RECENT DIASTOLIC BP < 90MM HG * Follow Up: v ia phone to report test results * Images: Billing Information: * Visit Code: 72651 Office Visit, Est Pt., Level 3. * Procedure Codes: G2211 Complex e/[place]. [address] Urinalysis, no micro. 1036F TOBACCO NON-USER. G8783 BP SCR PRFRM RCMDD DEFIND SCR INTVL. G8752 MOST RECENT SYSTOLIC BP < 140MM HG. G8754 MOST RECENT DIASTOLIC BP < 90MM HG. * Electronic signature of Valencia Santiago MD on 11/18/2024 at 12:54 PM EDT Sign off status: Pending * Provider: Kacie Santiago M.D. Date: 0 10/17/2024 Generated for Drew reza/Shanelle/Chetitting on: 0 11/18/2024 12:54 PM EDT History and Physical Notes * [...]
--- OUTSIDE RECORDS SUMMARY | 2024-11-05 10:45 | XMS_ITS ---
Author Organization [facility] Address [address] [place] [id number] Care Team Providers Care Distance Learning Technician Name Role Phone Jensen Santiago Primary [...] date:11/09/2024 01:30:44 PM Interpretation:sensitive Performing Lab: Notes/Report: Test performed by [facility] [address] [place] [address] , [address], [place] [address] Danilo Duran MD, Trading Analyst CLIA: [id number] Specimen Source Urine - Cath Culture, Urine See Below See Microbiol ogy Report Escherichia coli ESBL 50,000-100,000 CFU /ml Escherichia coli ESBL This isolate is a confirmed ESBL (Extended Spectrum Beta-Lactamase) independent producer and should be considered clinically resistant [...] 11/05/2024 Encounters Encounter Location Date Provider Diagnosis [facility] [address] [place] [phone] 11/05/2024 Jensen Santiago Chronic UTI N 39.0 [...] * Jaci SCOTTenDOB: 7 (79 yo F)Acc No.[id number]:11/05/2024 Progress Notes Patient: Kelli THOMAS Provider: Kacie Santiago M.D. :1945 A ge:79 Y S ex:Female Date:11/05/2024 Address:[address] [place] [address] [place], [id number] Subjective: * Chief Complaints: * * HPI: [...] 10:2 3:34 AM EDT >pt started on sulfameth/trimethKingKisha 11/09/2024 01:30:37 PM EDT > Pt notified [...] G 2211 Complex e/[place], [address] Urinalysis, no micro, 1036F TOBACCO NON- USER, G8783 BP SCR PRFRM RCMDD DEFIND SCR INTVL, G8752 MOST RECENT SYSTOLIC BP < 140MM HG, G8754 MOST RECENT DIASTOLIC BP < 90MM HG * Follow Up: v ia phone to report test results * Images: Billing Information: * Visit Code: 42595 Office Visit, Est Pt., Level 3. * Procedure Codes: G2211 Complex e/[place]. [address] Urinalysis, no micro. 1036F TOBACCO NON-USER. G8783 BP SCR PRFRM RCMDD DEFIND SCR INTVL. G8752 MOST RECENT SYSTOLIC BP < 140MM HG. G8754 MOST RECENT DIASTOLIC BP < 90MM HG. * Electronic signature of Valencia Santiago MD on 11/18/2024 at 12:53 PM EDT Sign off status: Pending * Provider: Kacie Santiago M.D. Date: 0 11/05/2024 Generated for Drew reza/Shanelle/Chetitting on: 0 11/18/2024 12:53 PM EDT History and Physical Notes * [...]
--- OUTSIDE RECORDS SUMMARY | 2024-11-13 06:30 | XMS_ITS ---
Author Organization [facility] Address [address] [facility] [address] [place] [phone] Care Team Providers Care Time Clock Mechanic Name Role Phone Jensen Santiago Primary Care Provider [phone] Allergies Allergen (clinical drug ingredient) Drug/Non Drug Allergy documented on EMR Reaction Allergy Type Onset Date Status Information temporarily unavailable Lisinopril hives Drug Allergy Active Information temporarily unavailable Penicillin rash Drug Allergy Active Results Component Value Reference Range Notes Urinalysis - Inhouse Reviewed date:11/13/2024 04:09:24 PM Interpretation: Performing Lab: Notes/Report: Color/Clarity Dark yellow/cloudy Leuk 3+ Nitrite Pos Urobili 3.2 Protein 3+ pH 5.5 Blood 2+ Sp. Gr. 1.010 Ketone Neg Bili Neg Gluc Neg CBC Fingerstick (in house) Reviewed date:11/13/2024 04:09:09 PM Interpretation: Performing Lab: Notes/Report: wbc 9.4 3.5 - 10 lym 26.5% 15 - 50 mid 5.7% 2 - 15 gran 67.8% 35 - 80 rbc 4.51 3.5 - 5.5 hgb 13.6 11.5 - 16.5 hct 40.4 35 - 55 mcv 89.5 75 - 100 mch 30.1 25 - 35 mchc 33.6 31 - 38 plat 129 100 - 400 P-Culture, Urine Reviewed date:11/16/2024 09:04:33 AM Interpretation: Performing Lab: Notes/Report: Test performed by [employer], [employer] [facility] [facility] , [place] [address] Danilo Duran MD, Bradley Linebacker Crewmember [facility]: [id number] Specimen Source Urine - Cath Culture, Urine See Below See Microbiol ogy Report Klebsiella pneumoniae ESBL 25,000-50,000 CFU/ml Klebsiella pneumoniae ESBL This isolate is a confirmed ESBL (Extended Spectrum Beta-Lactamase) online producer and should be considered clinically resistant to all penicillins, cephalosporins and aztreonam. Sensitivity Panel See Below _ Organism K. pneum ESBL Antibiotic INTERP _ Amikacin S Ampicillin R Aztreonam R Cefepime R Cefoxitin S Ceftazidime R Ceftriaxone R Cefuroxime R Ciprofloxacin R Ertapenem S Gentamicin S Imipenem S Levofloxacin I Meropenem S Nitrofurantoin R Piperacillin/Tazo S Tetracycline R Tobramycin S Trimeth/Sulfa R S=SUSCEPTIBLE I=INTERMEDIATE R=RESISTANT REASON FOR VISIT not better from UTI Medications Medication SIG (Take, Route, Frequency, Duration) Notes Start Date End Date Status Mycophenolate Mofetil 250 MG 1 capsule Orally Twice a day; Duration: 30 day(s) Active Methotrexate Sodium 2.5 MG as directed Orally Active predniSONE 5 MG 1 tablet Orally Once a day; Duration: 30 day(s) Active Folic Acid 1 MG 1 tablet Orally Once a day; Duration: 30 day(s) Active Fish Oil 100MG Activ e Methenamine Hippurate 1 GM 1 tablet Oral ly once daily Active Losartan Potassium 25 MG Take 1 tablet b y mouth once daily; Duration: 90 Active Eliquis 5 MG 1 tablets Orally twi ce a day; Duration: 30 days Active Wegovy 0.25 MG/0.5ML 0.5 mL Subcutaneous once a week; Duration: 30 days 10/23/2024 Active Pregabalin 150 MG 1 cap(s) orally 2 ti mes a day; Duration: 90 days 09/03/2024 Active Vitamin D3 25 MCG (1000 UT) 1 cap(s) ora lly once a day; Duration: 30 day(s) Active Pantoprazole Sodium 40 MG 1 tablet 1/2 t o 1 hour before morning meal Orally Once a day; Duration: 30 day(s) 07/10/2024 Active Hyoscyamine Sulfate 0.125 MG 1 tablet as needed Orally every 4 hrs 07/18/2024 Active DULoxetine HCl 60 MG Take 1 capsule by m outh once daily; Duration: 90 Active Claritin 10 MG 1 tab(s) orally once a day Active Problems Problem Type SNOMED Code ICD Code Onset Dates Problem Status W/U Status Risk Notes Problem Information temporarily unavailable Rectocele, female (N81.6) Active confirmed Vital Signs Weight 204.4 lbs 11/13/2024 Blood pressure systolic 132 mm Hg 11/14/19 25 Blood pressure diastolic 70 mm Hg 025 Heart Rate 107 /min 11/13/2024 Height 65 in 11/13/2024 BMI 34.01 kg/m2 11/13/2024 Encounters Encounter Location Date Provider Diagnosis [facility] [address] [facility] [address] [place], [place] [phone] 11/13/2024 Jensen Santiago Chronic UTI N39.0 ; Urinary retention R33.9 and Rectocele, female N81.6 Assessments Encounter Date Diagnosis (ICD Code) Assessment Notes Treatment Notes Treatment Clinical Notes Section Notes 11/13/2024 Chronic UTI (ICD-10 - N39.0) 11/13/2024 Urinary retention (ICD-10 - R33.9) Spoke to Dr. Kingston. He recommends awaiting culture and then treat accordingly. Patient may need evaluation for a suprapubic catheter 11/13/2024 Rectocele, female (ICD-10 - N81.6) Doubt this of any significance to patient's current issues Plan Of Treatment Treatment Notes Assessment Notes Urinary retention Spoke to Dr. Kingston. He recommends awaiting culture and then treat accordingly. Patient may need evaluation for a suprapubic catheter Rectocele, female Doubt this of any si gnificance to patient's current issues Next Appt Details Follow Up: via phone to repo rt test results, Reason: Progress Notes * Jaci SCOTTenDOB: 7 (79 yo F)Acc No.[id number]:11/13/2024 Progress Notes Patient: Kelli THOMAS Provider: Kacie Santiago M.D. :1945 A ge:79 Y S ex:Female Date:11/13/2024 Address:[address] [place] [address] [place], [id number] Subjective: * Chief Complaints: * 1 . not better from UTI. * HPI: U rology: 79 year old female presents with c/o UTI P t here to f/u on 11/05 UTI. Pt states she has completed abx but symptoms have not improved . * ROS: D ERMATOLOGY: no R carlita. [...] Dermatomyositis, Dx: 2022, DVT, left leg May 2024, Urinary retention. * Surgical History: B ladder Tuck 2008, [...] mL Subcutaneous once a week , Discontinued Sulfamethoxazole-Trimethoprim 800-160 MG Tablet 1 tablet Orally twice a day , Medication List reviewed and reconciled with the patient * Allergies: P enicillin: rash, Lisinopril: hives. Objective: * Vitals: W t: 204.4, Temp: 98.7, BP: 132/70, HR: 107, Nurse: MURALI, Ht: 65, BMI:34.01. * Examination: G eneral Examination: General Appearance: N AD, conversant. H eart: R SR.?Lungs: c lear to auscultation. B ack: n o CVA tenderness. Assessment: * Assessment: 1. C hronic UTI - N39.0 (Primary) 2 . U rinary retention - R33.9 3 . R ectocele, female - N81.6 Plan: * Treatment: Value Reference Range C ulture, Urine See Below - * S pecimen Source Urine - Cath - * S ensitivity Panel See Below - * K lebsiella pneumoniae ESBL 25,000-50,000 CFU/ml Klebsiella pneumoniae ESBL - * Shabnam Amor 11/16/2024 09:0 4:27 AM EDT > See phone encounter ?LAB: Urinalysis - Inhouse (Collection Date & Time - 11/13/2024)* Value Reference Range C olor/Clarity Dark yellow/cloudy * L euk 3+ * N itrite Pos * U robili 3.2 * P rotein 3+ * p H 5.5 * B lood 2+ * S p. Gr. 1.010 * K etone Neg * B antolin Neg * G jl Neg * Kisha John 11/13/2024 11:06: 30 AM EDT > Provider reviewed results while patient in office. ?LAB: CBC Fingerstick (in house) (Collection Date & Time - 11/13/2024)* Value Reference Range w bc 9.4 3.5 - 10 * l ym 26.5% 15 - 50 * m id 5.7% 2 - 15 * g ran 67.8% 35 - 80 * r bc 4.51 3.5 - 5.5 * h gb 13.6 11.5 - 16.5 * h ct 40.4 35 - 55 * m cv 89.5 75 - 100 * m ch 30.1 25 - 35 * m chc 33.6 31 - 38 * p lat 129 100 - 400 * Kisha John 11/13/2024 11:08: 54 AM EDT > Provider reviewed results while patient in office. 2.?Urinary retention? Notes: Spoke to Dr. Kingston. He recommends awaiting culture and then treat accordingly. Patient may need evaluation for a suprapubic catheter?? 3.?Rectocele, female? Notes: Doubt this of any significance to patient's current issues?? * Procedure Codes: G 2211 Complex e/[place], [address] Urinalysis, no micro, 353[address] CAPILLARY BLOOD DRAW, 15940 CBC WITH AUTO DIFF * Follow Up: v ia phone to report test results * Images: Billing Information: * Visit Code: 95349 Office Visit, Est Pt., Level 4. * Procedure Codes: G2211 Complex e/[place]. [address] Urinalysis, no micro. 77[address] CAPILLARY BLOOD DRAW. 22626 CBC WITH AUTO DIFF. * Electronic signature of Valencia Santiago MD on 11/18/2024 at 12:53 PM EDT Sign off status: Pending * Provider: Kacie Santiago M.D. Date: 11/13/2024 Generated for Drew reza/Shanelle/Chetitting on: 11/18/2024 12:53 PM EDT History and Physical Notes * HPI (History of Present Illness) Category Sub-Category Detail Notes Category Not es Urology UTI Pt here to f/u o n 11/05 UTI. Pt states she has completed abx but symptoms have not improved Examination Category Sub-Category Detail Notes Category Not es General Examination Heart: RSR Lungs: clear to auscultatio n General Appearance: NAD, conversant Back: no CVA tenderness
--- OUTSIDE RECORDS SUMMARY | 2024-11-16 05:03 | XMS_ITS ---
Author Organization Ade Address [facility] [address] [place] [id number] Care Team Providers Care Photolithographer Name Role Phone Jensen Santiago Primary Care Provider [phone] REASON FOR VISIT abnormal urine cx Medications Medication SIG (Take, Route, Fr equency, Duration) Notes Start Date End Date Status Ertapenem Sodium 1 GM 1 gram IM Injectio n daily; Duration: 5 days 11/16/2024 Active Encounters Encounter Location Date Provider Diagnosis Ade [facility] [address] [place] [id number] 11/16/2024 Jensen Santiago Acute UTI N39.0 Assessments Encounter Date Diagnosis (ICD Code) Assessment Notes Treatment Notes Treatment Clinical Notes Section Notes 11/16/2024 Acute UTI (ICD-10 - N39.0) Plan Of Treatment Medication Medication Name Sig Start Date Stop Date Notes Ertapenem Sodium 1 GM 1 gram IM Injectio n daily; Duration: 5 days 11/16/2024 Progress Notes * Lan DEWITTOB: 7 (79 yo F)Acc No.[id number]:11/16/2024 Patient: Kelli THOMAS :1945 A ge:79 Y S ex:Female Address:[address] [facility], [address] * Refills Start Ertapenem Sodium Solution Reconstituted, [...] Date: Generated for Drew reza/Shanelle/Berlinsmitting on: 0 11/18/2024 12:56 PM EDT
--- OUTSIDE RECORDS SUMMARY | 2024-11-18 12:53 | XMS_ITS | Encounter Summary ---
Author Organization [employer] ([place], [place], [place], [place]) Address [address] [place] [address] Care Team Providers Care Cardiology Physician Name Role Phone Unavailable Primary Care Provider Unavailabl e Encounter Details Date Type Department Care Team (Late st Contact Info) Description 02/12/2019 Transcribed Document [facility] Radiology 1 [place] [address] Anne Peters MD [address] [place] [address] [address] [id number] Social History Tobacco Use Types Packs/Day Years [...] 02/05/[address] Johan Sue neurology [facility] Chief complaint bilateral upper and [...] At risk for sleep apnea / IMO [id number] / Confirmed, Active Problems (3) At risk [...] gallop, S1+ S2 No S3 or S4 [place].. Gastrointestinal: Soft, Non-tender, Non-distended, Normal bowel sounds. [...]
--- OUTSIDE RECORDS SUMMARY | 2024-11-18 12:53 | XMS_ITS | Encounter Summary ---
Author Organization [employer] ([place], [place], [place], [place]) Address [address] [place] [address] Care Team Providers Care Data Operations Manager Name Role Phone Unavailable Primary Care Provider Unavailabl e Encounter Details Date Type Department Care Team (Late st Contact Info) Description 02/12/2019 Transcribed Document [facility] Radiology 1 [place] [address] Claudio Allen MD [facility] [place] [address] Social History Tobacco Use Types [...] few weeks prior to her admission at [facility], she noticed progressive weakness to the [...] rate and rhythm. ABDOMEN: Soft and nontender. POULTRY FARMER: Demonstrate ability to move both upper and [...] the patient were comfortable with the discussion. /[id number] Christiano Allen MD RONOEY/AQ / ROONEY / MODL /[id number] CC: MD Johan Leone MD Haider Abbas, MD Imran A Khan, MD Electronically signed by [facility], [facility] Conversion Hand Ii Cutter Cerner at 07/07/2022 9:59 PM CDT documented in this encounter Plan of Treatment Not on file documented as of this encounter Visit Diagnoses Not on filedocumented in this encounter
--- OUTSIDE RECORDS SUMMARY | 2024-11-18 12:53 | XMS_ITS | Encounter Summary ---
Author Organization [employer] ([place], [place], [place], [place]) Address [address] [place] [address] Care Team Providers Care Ager Tender Name Role Phone Unavailable Primary Care Provider Unavailabl e Encounter Details Date Type Department Care Team (Late st Contact Info) Description 02/12/2019 Transcribed Document [facility] [place] [address] [place] [address] ProviderYusuf MD [facility] [place] [address] Social History Tobacco Use Types [...] - Historical ProviderMD - 02/12/2019 2:00 AM AVIATION SAFETY INSPECTOR Card Grinder Details Entered On: 02/12/2019 4:19 EST Performed [...]
--- OUTSIDE RECORDS SUMMARY | 2024-11-18 12:53 | XMS_ITS | Encounter Summary ---
Author Organization [employer] ([place], [place], [place], [place]) Address [address] [place] [address] Care Team Providers Care Production Finisher Name Role Phone Unavailable Primary Care Provider Unavailabl e Encounter Details Date Type Department Care Team (Late st Contact Info) Description 02/12/2019 Transcribed Document [facility] [place] [address] [place] [address] ProviderYusuf MD [facility] [place] [address] Social History Tobacco Use [...] - Historical ProviderMD - 02/12/2019 5:00 PM COBBLER APPRENTICE Chart Check - Review Order Profile Entered [...]
--- OUTSIDE RECORDS SUMMARY | 2024-11-18 12:53 | XMS_ITS | Encounter Summary ---
Author Organization [employer] ([place], [place], [place], [place]) Address [address] [place] [address] Care Team Providers Care Ad Operations Specialist Name Role Phone Unavailable Primary Care Provider Unavailabl e Encounter Details Date Type Department Care Team (Late st Contact Info) Description 02/12/2019 Transcribed Document [facility] Neurology - [facility] [address] [facility] [address] [place] [address] Fernando Dotson MD [address] [facility]. [address] [place] [address] Social History Tobacco Use Types [...] for transverse myelitis. She was admitted to [facility] on 02/05/2019 under the medicine service [...] 5/5 d, 5/5 b, 5/5 t, 5/5 a and p technician rue 5/5 d, 5/5 b, 5/5 t, 5/5 a and p technician lle 4+/5 hf, 4+/5 ke, 4+/5 df, [...] - MI PRYOR MD-INT Referring Physician - YAHRI, UNKNOWN Problem List/Past Medical History Ongoing At [...] CLOUDY2 (Abnormal) 02/11/2019 22:29 EST Urine Specific [place] 1.020 02/11/2019 22:29 EST Urine pH Dipstick [...]
--- OUTSIDE RECORDS SUMMARY | 2024-11-18 12:53 | XMS_ITS | Encounter Summary ---
Author Organization [employer] ([place], [place], [place], [place]) Address [address] [place] [address] Care Team Providers Care Utility Bill Complaints Investigator Name Role Phone Unavailable Primary Care Provider Unavailabl e Encounter Details Date Type Department Care Team (Late st Contact Info) Description 02/13/2019 Transcribed Document [facility] Radiology 1 [place] [address] Zack Jah MD [address] [place] [address] [address] [place] [id number] Social History Tobacco Use Types Packs/Day Years [...] 02/05/[address] Johan Sue neurology [facility] Chief complaint bilateral upper and lower extremity [...] gallop, S1+ S2 No S3 or S4 [place].. Gastrointestinal: Soft, Non-tender, Non-distended, Normal bowel sounds. [...] complaint to look for a facility in [place], close to their home. documented in this encounter Plan of Treatment Not on file documented as of this encounter Visit Diagnoses Not on filedocumented in this encounter
--- OUTSIDE RECORDS SUMMARY | 2024-11-18 12:54 | XMS_ITS | Encounter Summary ---
Author Organization [employer] ([place], [place], [place], [place]) Address [address] [place] [address] Care Team Providers Care It Systems Engineer Name Role Phone Unavailable Primary Care Provider Unavailabl e Encounter Details Date Type Department Care Team (Late st Contact Info) Description 02/10/2019 Transcribed Document [facility] [place] [address] [place] [address] ProviderYusuf [place] [address] Social History Tobacco Use Types [...] - Historical ProviderMD - 02/10/2019 5:00 PM LABOUR MARKET ECONOMIST Chart Check - Review Order Profile Entered [...]
--- OUTSIDE RECORDS SUMMARY | 2024-11-18 12:54 | XMS_ITS | Encounter Summary ---
Author Organization [employer] ([place], [place], [place], [place]) Address [address] [place] [address] Care Team Providers Care Sample Taker Operator Name Role Phone Unavailable Primary Care Provider Unavailabl e Encounter Details Date Type Department Care Team (Late st Contact Info) Description 02/14/2019 Transcribed Document [facility] [address] ProviderYus[place] [address] Social History Tobacco Use Types [...] - Historical ProviderMD - 02/14/2019 5:00 PM WET PROCESS OPERATOR Chart Check - Review Order Profile Entered On: 02/14/2019 18:34 EST Performed On: 02/14/2019 17:00 EST by Giselle Stanley RN Chart Check All Active Orders Reviewed : Yes Giselle Stanley RN - 02/14/2019 18:34 EST Electronically signed by Onel Snyder Conversion International Marketing Specialist Cerner at 07/07/2022 9:58 PM CDT documented in this encounter Plan of Treatment Not on file documented as of this encounter Visit Diagnoses Not on filedocumented in this encounter
--- OUTSIDE RECORDS SUMMARY | 2024-11-18 12:54 | XMS_ITS | Encounter Summary ---
Author Organization [employer] ([place], [place], [place], [place]) Address [address] [place] [address] Care Team Providers Care Pet Training Instructor Name Role Phone Unavailable Primary Care Provider Unavailabl e Encounter Details Date Type Department Care Team (Late st Contact Info) Description 02/10/2019 Transcribed Document [facility] Family Medicine [facility] [address] ProviderYusuf [place] [address] Social History Tobacco Use Types [...] - Historical ProviderMD - 02/10/2019 5:38 PM CLAM PICKER Patient: FRANKY DEWITT Age: 74 Years Sex: [...]
--- OUTSIDE RECORDS SUMMARY | 2024-11-18 12:54 | XMS_ITS | Encounter Summary ---
Author Organization [employer] ([place], [place], [place], [place]) Address [address] [place] [address] Care Team Providers Care Take Off Man Name Role Phone Unavailable Primary Care Provider Unavailabl e Encounter Details Date Type Department Care Team (Late st Contact Info) Description 02/14/[address] [facility] [place] Medicine [facility] [place] [address] ProviderYusuf MD [facility] [place] [address] Social History Tobacco Use Types [...] - Historical ProviderMD - 02/14/2019 2:00 AM CARPORT ERECTOR Automat Watcher Details Entered On: 02/14/2019 6:40 EST Performed [...]
--- OUTSIDE RECORDS SUMMARY | 2024-11-18 12:54 | XMS_ITS | Encounter Summary ---
Author Organization [employer] ([place], [place], [place], [place]) Address [address] [place] [address] Care Team Providers Care Sap Bw Architect Name Role Phone Unavailable Primary Care Provider Unavailabl e Encounter Details Date Type Department Care Team (Late st Contact Info) Description 02/13/2019 Transcribed Document [facility] Family Medicine [address] [place] [address] ProviderYusuf MD [facility] [place] [address] Social History Tobacco Use Types [...] - Historical ProviderMD - 02/13/2019 5:00 AM TROUSSEAU CONSULTANT Chart Check - Review Order Profile Entered On: 02/13/2019 6:10 EST Performed On: 02/13/2019 5:00 EST by JAYA WASHINGTON REGISITERED_ Chart Check Powerplans Initiated/Discontinued as Appropriate : Yes All Active Orders Reviewed : Yes JAYA WASHINGTON REGISITERED_NURSE - 02/13/2019 6:10 EST Electronically signed by Lillian [facility] Conversion Residential Sales Consultant Cerner at 07/07/2022 9:56 PM CDT documented in this encounter Plan of Treatment Not on file documented as of this encounter Visit Diagnoses Not on filedocumented in this encounter
--- OUTSIDE RECORDS SUMMARY | 2024-11-18 12:54 | XMS_ITS | Encounter Summary ---
Author Organization [employer] ([place], [place], [place], [place]) Address [address] [place] [address] Care Team Providers Care Medical Education Manager Name Role Phone Unavailable Primary Care Provider Unavailabl e Encounter Details Date Type Department Care Team (Late st Contact Info) Description 02/13/2019 Transcribed Document [facility] [facility] [place] [address] ProviderYusuf MD [facility] [place] [address] Social History Tobacco Use Types [...] - Historical ProviderMD - 02/13/2019 5:00 PM RELIGIOUS HEALER Chart Check - Review Order Profile Entered [...]
--- OUTSIDE RECORDS SUMMARY | 2024-11-18 12:54 | XMS_ITS | Encounter Summary ---
Author Organization [employer] ([place], [place], [place], [place]) Address [address] [place] [address] Care Team Providers Care Collision Repair Technician Name Role Phone Unavailable Primary Care Provider Unavailabl e Encounter Details Date Type Department Care Team (Late st Contact Info) Description 02/13/2019 Transcribed Document [facility] [place] Family Medicine [facility] [place] [address] ProviderYusuf MD [facility] [place] [address] Social History Tobacco Use Types [...] - Historical ProviderMD - 02/13/2019 5:04 PM FORECLOSURE HOME INSPECTOR Patient: FRANKY SCOTT Age: 74 Years Sex: [...] 1 Tab, Oral, Daily Electronically signed by [facility], [facility] Conversion Art Display Maker Cerner at 07/07/2022 9:59 PM CDT documented in this encounter Plan of Treatment Not on file documented as of this encounter Visit Diagnoses Not on filedocumented in this encounter
--- OUTSIDE RECORDS SUMMARY | 2024-11-18 12:54 | XMS_ITS | Encounter Summary ---
Author Organization [employer] ([place], [place], [place], [place]) Address [address] [place] [address] Care Team Providers Care Bus Starter Name Role Phone Unavailable Primary Care Provider Unavailabl e Encounter Details Date Type Department Care Team (Late st Contact Info) Description 02/09/2019 Transcribed Document [facility] Radiology 1 [place] [address] Anne Peters MD [address] [place] [address] [address] [place] [id number] Social History Tobacco Use Types Packs/Day Years [...] At risk for sleep apnea / O [id number] / Confirmed, Active Problems (3) At risk [...] gallop, S1+ S2 No S3 or S4 [place].. Gastrointestinal: Soft, Non-tender, Non-distended, Normal bowel sounds. [...]
--- OUTSIDE RECORDS SUMMARY | 2024-11-18 12:54 | XMS_ITS | Encounter Summary ---
Author Organization [employer] ([place], [place], [place], [place]) Address [address] [place] [address] Care Team Providers Care Lacquerer Name Role Phone Unavailable Primary Care Provider Unavailabl e Encounter Details Date Type Department Care Team (Late st Contact Info) Description 02/11/2019 Transcribed Document [facility] [place] [address] [place] [address] ProviderYusuf [place] [address] Social History Tobacco Use Types [...] - Historical ProviderMD - 02/11/2019 5:00 PM ARTIST RELATIONSHIP MANAGER Chart Check - Review Order Profile [...]
--- OUTSIDE RECORDS SUMMARY | 2024-11-18 12:54 | XMS_ITS | Encounter Summary ---
Author Organization [employer] ([place], [place], [place], [place]) Address [address] [place] [address] Care Team Providers Care Coil Wrapper Name Role Phone Unavailable Primary Care Provider Unavailabl e Encounter Details Date Type Department Care Team (Late st Contact Info) Description 02/13/2019 Transcribed Document [facility] [place] [facility] [place] [address] ProviderYusuf MD [facility] [place] [address] Social History Tobacco Use Types [...] - Historical ProviderMD - 02/13/2019 4:17 PM REPORTING MANAGER On Going Discharge Planning Entered On: 02/13/2019 [...] Note Narrative Progress Note : Patient chose [facility] for STR. CM notified that patient has been approved for admission. Dr. Bales in to speak with patient, family and CM. Will order diagnostic scand for tomorrw and plan on admission to [facility] on , 02/15. Historical Progress Note : [...] prefer STR. Patient's first choice [facility] be [facility] and second choice is [facility]. Referrals sent through [facility]. CM will continue to follow. Neva Cotto RN - 02/13/19 09:37:24 MICHAELA reviewed chart. Neuro consult and following, MRI Cervical Thor. and Lumbar Spine. Discussed DCP with pt including HH vs Rehab. CM Will continue to follow for d/c needs. ALECIA GOMEZ RN-Career Specialist - 02/09/19 14:52:38 CM reviewed chart. [...] to follow for d/c needs. ALECIA GOMEZ, JONATAN-Career Specialist - 02/08/19 09:16:23 CM reviewed chart. RRS 38. Cm to room to met pt. Pt spouse in room. spouse stated that pt is off floor for Xray. Spouse stated that DCP is to discharge home with family. Possible hh if a need. CM will continue to follow for d/c needs. ALECIA GOMEZ RN-Career Specialist - 02/07/19 09:05:36 Neva Cotto RN - 02/13/2019 16:17 EST Electronically signed by Lillian [facility] Conversion Hunter Skin Diver Cerner at 07/07/2022 9:59 PM CDT documented in this encounter Plan of Treatment Not on file documented as of this encounter Visit Diagnoses Not on filedocumented in this encounter
--- OUTSIDE RECORDS SUMMARY | 2024-11-18 12:54 | XMS_ITS | Encounter Summary ---
Author Organization [employer] ([place], [place], [place], [place]) Address [address] [place] [address] Care Team Providers Care Provider Relations Manager Name Role Phone Unavailable Primary Care Provider Unavailabl e Encounter Details Date Type Department Care Team (Late st Contact Info) Description 02/11/2019 Transcribed Document [facility] [place] [facility] [place] [address] ProviderYusuf MD [facility] [place] [address] Social History Tobacco Use Types [...] - Historical ProviderMD - 02/11/2019 10:44 AM SHAGGER Patient: FRANKY DEWITT Age: 74 Years Sex: [...]
--- OUTSIDE RECORDS SUMMARY | 2024-11-18 12:54 | XMS_ITS | Encounter Summary ---
Author Organization [employer] ([place], [place], [place], [place]) Address [address] [place] [address] Care Team Providers Care Lock And Dam Equipment Repairer Name Role Phone Unavailable Primary Care Provider Unavailabl e Encounter Details Date Type Department Care Team (Late st Contact Info) Description 02/09/2019 Transcribed Document [facility] [place] [facility] [place] [address] ProviderYusuf MD [facility] [place] [address] Social History Tobacco Use Types [...] - Historical ProviderMD - 02/09/2019 5:00 PM CLOTHES PRESSER Chart Check - Review Order Profile Entered On: 02/09/2019 15:20 EST Performed On: 02/09/2019 17:00 EST by Yeimi Olmos RN Chart Check Powerplans Initiated/Discontinued as Appropriate : Yes All Active Orders Reviewed : Yes Yeimi Olmos RN - 02/09/2019 15:20 EST Electronically signed by Lillian [facility] Conversion Chief Of Party Cerner at 07/07/2022 9:50 PM CDT documented in this encounter Plan of Treatment Not on file documented as of this encounter Visit Diagnoses Not on filedocumented in this encounter
--- OUTSIDE RECORDS SUMMARY | 2024-11-18 12:54 | XMS_ITS | Encounter Summary ---
Author Organization [employer] ([place], [place], [place], [place]) Address [address] [place] [address] Care Team Providers Care Custodian Name Role Phone Unavailable Primary Care Provider Unavailabl e Encounter Details Date Type Department Care Team (Late st Contact Info) Description 02/14/2019 Transcribed Document [facility] [place] [facility] [place] [address] ProviderYusuf MD [place] [address] Social History Tobacco Use Types [...] - Historical ProviderMD - 02/14/2019 11:30 AM DAIRY HUSBANDMAN Attempt to Treat, OT Entered On: 02/14/2019 [...]
--- OUTSIDE RECORDS SUMMARY | 2024-11-18 12:54 | XMS_ITS | Encounter Summary ---
Author Organization [employer] ([place], [place], [place], [place]) Address [address] [place] [address] Care Team Providers Care Master Coastwise Yacht Name Role Phone Unavailable Primary Care Provider Unavailabl e Encounter Details Date Type Department Care Team (Late st Contact Info) Description 02/15/2019 Transcribed Document [facility] [place] [facility] [place] [address] ProviderYusuf MD [facility] [place] [address] Social History Tobacco Use Types [...] - Yusuf ProviderMD - 02/15/2019 10:58 AM FURNACE MAINTENANCE Patient Education Materials Follows: Transverse Myelitis Transverse [...] You may need to see a nervous space systems operations craftsman (neurologist) to have tests, which may include: [...] Follow these instructions at home: ??? Take szus-eex-iezzbbo and prescription medicines only as told by [...] 02/25/2003 Document Revised: 11/07/2016 Document Reviewed: 08/13/2015 [employer] Interactive Patient Education ? 2019 [employer] Sky. Neurology Spinal Cord Infarction A spinal cord [...] ? Manage bowel and bladder problems. ? Seaman with mental health problems. ? Manage pain. [...] 02/25/2003 Document Revised: 11/02/2016 Document Reviewed: 05/21/2014 [employer] Interactive Patient Education ? 2019 [employer] Weakness Weakness is a lack of [...] sleep you need each night. ??? Take zcbs-bpd-usgtled and prescription medicines only as told by [...] about working with a physical therapist or product trainer to help you get stronger. ??? [...] 02/17/2009 Document Revised: 04/01/2016 Document Reviewed: 12/26/2015 [employer] Interactive Patient Education ? 2019 [employer] Sky. Obstetrics and Gynecology Near-Syncope Near-syncope is when [...] This can help with dizziness. ??? Take rzgl-enl-qbieplx and prescription medicines only as told by [...] 11/19/2015 Elsevier Interactive Patient Education ? 2019 [employer] documented in this encounter Plan of Treatment Not on file documented as of this encounter Visit Diagnoses Not on filedocumented in this encounter
--- OUTSIDE RECORDS SUMMARY | 2024-11-18 12:54 | XMS_ITS | Clinical Summary ---
Author Organization Healthcare Address [address] [place] [address] Care Team Providers Care Precision Dyer Name Role Phone Jensen Santiago MD Primary Care Provider [phone] Allergies Active Allergy Reactions Criticality Noted Date [...] or (1 - 1-dose 75+ series) 2022 [id number] Vaccine (2023- season) 2023 12/16/2021, 07/31/2021, 01/28/2021, [...] age to complete this topic Insurance MEDICARE [facility] Care Teams Precision Dyer Relationship Specialty Start Date End Date Jensen Santiago MD [address] [place] [id number] PCP - General 12/11/20
--- OUTSIDE RECORDS SUMMARY | 2024-11-18 12:54 | XMS_ITS | Encounter Summary ---
Author Organization [employer] ([place], [place], [place], [place]) Address [address] [place] [address] Care Team Providers Care Gate Watch Name Role Phone Unavailable Primary Care Provider Unavailabl e Encounter Details Date Type Department Care Team (Late st Contact Info) Description 02/13/2019 Transcribed Document [facility] [place] Family Medicine [address] [place] [address] ProviderYusuf [place] [address] Social History Tobacco Use Types [...] - Historical ProviderMD - 02/13/2019 2:00 AM ETL DATA ARCHITECT Diving Supervisor Details Entered On: 02/13/2019 4:00 EST Performed [...]
--- OUTSIDE RECORDS SUMMARY | 2024-11-18 12:54 | XMS_ITS | Encounter Summary ---
Author Organization [employer] ([place], [place], [place], [place]) Address [address] [place] [address] Care Team Providers Care Supervisor Inventory Merchandising Name Role Phone Unavailable Primary Care Provider Unavailabl e Encounter Details Date Type Department Care Team (Late st Contact Info) Description 02/10/2019 Transcribed Document [facility] [place] Family Medicine [facility] [place] [address] ProviderYusuf MD [facility] [place] [address] Social History Tobacco Use [...] - Historical ProviderMD - 02/10/2019 2:00 AM FASHION DIRECTOR Travel Trailer Components Assembler Details Entered On: 02/10/2019 2:04 EST Performed [...]
--- OUTSIDE RECORDS SUMMARY | 2024-11-18 12:54 | XMS_ITS | Encounter Summary ---
Author Organization [employer] ([place], [place], [place], [place]) Address [address] [place] [address] Care Team Providers Care Low Emission Automobile Designer Name Role Phone Unavailable Primary Care Provider Unavailabl e Encounter Details Date Type Department Care Team (Late st Contact Info) Description 02/09/2019 Transcribed Document [facility] [place] [facility] [place] [address] ProviderYusuf MD [facility] [place] [address] Social History Tobacco [...] - Historical ProviderMD - 02/09/2019 5:00 AM STEEL UNLOADER Chart Check - Review Order Profile Entered [...]
--- OUTSIDE RECORDS SUMMARY | 2024-11-18 12:54 | XMS_ITS | Encounter Summary ---
Author Organization [employer] ([place], [place], [place], [place]) Address [address] [place] [address] Care Team Providers Care Rehanger Name Role Phone Unavailable Primary Care Provider Unavailabl e Encounter Details Date Type Department Care Team (Late st Contact Info) Description 02/14/2019 Transcribed Document [facility] Radiology [address] [place] [address] Zack Jha MD [address] [place] [address] [address] [place] [id number] Social History Tobacco Use Types Packs/Day Years [...] JHA MD-INT Subjective Primary care physician Dr Bradlye CRUZ Date of admission 02/05/2019 Referring physician [...] gallop, S1+ S2 No S3 or S4 [place].. Gastrointestinal: Soft, Non-tender, Non-distended, Normal bowel sounds. [...] is ongoing. DC plan: Likely tomorrow to [facility] for short-term rehabilitation. documented in this encounter Plan of Treatment Not on file documented as of this encounter Visit Diagnoses Not on filedocumented in this encounter
--- OUTSIDE RECORDS SUMMARY | 2024-11-18 12:54 | XMS_ITS | Clinical Summary ---
Author Organization [facility] Address [address] [place] [address] Care Team Providers Care Financial Accountant Name Role Phone Jensen Santiago MD Primary Care Provider [phone] Allergies Active Allergy Reactions Criticality Noted Date Comments Lisinopril Hives Low 03/28/2019 Penicillins Rash Low 03/28/2019 Tramadol Rash Low 10/17/2019 Medications potassium chloride (K-DUR,KLOR-CON) 10 MEQ CR tablet Take 10 mEq by mouth Daily. 9 Active losartan (COZAAR) 25 MG tablet Take 1 tablet by mouth Daily. Active Biotin 43866 MCG tablet Take 1,000 mcg by mouth Daily. Active [place]-3 Fatty Acids (FISH OIL) 500 MG capsule [...] TO AFFECTED AREA TWICE DAILY 2 Active [place]-3 Fatty Acids (fish oil) 1000 MG capsule [...] 06/29/2019, 04/22 Medical Devices Implanted Type Area Technical Sales Representatives Device Identifier Shelf Expiration Date Model / Serial / Lot Sys Liq Emb Dodson 18 Evoh/6pct Vl1.5ml - [id number] Implanted:Qty: 1 on 04/06/2019 by Laurent Kelsey MD at [facility] Implant EV3 [place] [id number] / / Insurance MEDICARE A & B [employer] [facility] Advance Directives Documents on File Type Date Recorded Patient Train Reservation Clerk Expl anation LIVING WILL - SCAN 03/29/2019 [...] Scott Spouse Health Care Surrogate Care Teams Financial Accountant Relationship Specialty Start Date End Date Jensen Santiago MD [address] [place] [address] [place] [address] PCP - General Family Medicine 03/26/19
--- OUTSIDE RECORDS SUMMARY | 2024-11-18 12:54 | XMS_ITS | Encounter Summary ---
Author Organization [employer] ([place], [place], [place], [place]) Address [address] [place] [address] Care Team Providers Care Weight Engineer Name Role Phone Unavailable Primary Care Provider Unavailabl e Encounter Details Date Type Department Care Team (Late st Contact Info) Description 02/10/2019 Transcribed Document [facility] Radiology 1 [place] [address] Anne Peters MD [address] [place] [address] [address] [place] [id number] Social History Tobacco Use Types Packs/Day Years [...] as a direct admit per Dr. Johan Seu's request. Patient reports bilateral upper and lower [...] At risk for sleep apnea / IMO [id number] / Confirmed, Active Problems (3) At risk [...] gallop, S1+ S2 No S3 or S4 [place].. Gastrointestinal: Soft, Non-tender, Non-distended, Normal bowel sounds. [...]
--- OUTSIDE RECORDS SUMMARY | 2024-11-18 12:54 | XMS_ITS | Encounter Summary ---
Author Organization [employer] ([place], [place], [place], [place]) Address [address] [place] [address] Care Team Providers Care Counseling Aide Name Role Phone Unavailable Primary Care Provider Unavailabl e Encounter Details Date Type Department Care Team (Late st Contact Info) Description 02/09/2019 Transcribed Document [facility] [place] [facility] [place] [address] ProviderYusuf MD [facility] [place] [address] Social History Tobacco Use Types [...] - Historical ProviderMD - 02/09/2019 2:51 PM LYE MACHINE OPERATOR On Going Discharge Planning Entered On: 02/09/2019 14:52 EST Performed On: 02/09/2019 14:51 EST by ALECIA GOMEZ RN-Surgery TeacherMachining And Assembly Supervisor Progress Note Discharge Arrangements : Patient Post-Acute [...] Meeting Medical Necessity : Yes ALECIA GOMEZ RN-Surgery Teacher - 02/09/2019 14:51 EST Narrative Progress Note [...] to follow for d/c needs. ALECIA GOMEZ RN-Surgery Teacher - 02/08/19 09:16:23 CM reviewed chart. RRS 38. Cm to room to met pt. Pt spouse in room. spouse stated that pt is off floor for Xray. Spouse stated that DCP is to discharge home with family. Possible hh if a need. CM will continue to follow for d/c needs. ALECIA GOMEZ RN-Surgery Teacher - 02/07/19 09:05:36 ALECIA GOMEZ RN-Surgery Teacher - 02/09/2019 14:51 EST Electronically signed by Onel Snyder Conversion Embedded Software Programmer Kalinaner at 07/07/2022 9:58 PM CDT documented in this encounter Plan of Treatment Not on file documented as of this encounter Visit Diagnoses Not on filedocumented in this encounter
--- OUTSIDE RECORDS SUMMARY | 2024-11-18 12:54 | XMS_ITS | Encounter Summary ---
Author Organization [employer] ([place], [place], [place], [place]) Address [address] [place] [address] Care Team Providers Care Travel Physical Therapist Name Role Phone Unavailable Primary Care Provider Unavailabl e Encounter Details Date Type Department Care Team (Late st Contact Info) Description 02/14/2019 Transcribed Document [facility] [place] [facility] [place] [address] ProviderYusuf MD [facility] [place] [address] Social History Tobacco Use Types [...] - Historical ProviderMD - 02/14/2019 2:46 PM DIESEL LOCOMOTIVE CRANE OPERATOR On Going Discharge Planning Entered On: 02/14/2019 14:52 EST Performed On: 02/14/2019 14:46 EST by Neva Cotto RN Care Management Progress Note Designation of Choice Signed : Yes (Comment: Patient given a list of providers for STR with associated STARS rating. Patient selected [facility]. [Neva Cotto RN - 02/14/2019 15:08 [...] abdomen and pelvis with/out contrast completed. DCP: [facility] spinal cord unit tomorrow. will transport. IM and Choice signed. Historical Progress Note : Patient chose [facility] for STR. CM notified that patient has been approved for admission. Dr. Bales in to speak with patient, family and CM. Will order diagnostic scand for tomorrw and plan on admission to [facility] on , 02/15. Neva Cotto RN [...] prefer STR. Patient's first choice would be [facility] and second choice is [facility]. Referrals sent through [facility]. CM will continue to follow. Neva Cotto RN - 02/13/19 09:37:24 CM reviewed chart. Neuro consult and following, MRI Cervical Thor. and Lumbar Spine. Discussed DCP with pt including HH vs Rehab. CM Will continue to follow for d/c needs. ALECIA GOMEZ, RN-Printed Circuit Board Assembly Repairer - 02/09/19 14:52:38 CM reviewed chart. [...] to follow for d/c needs. ALECIA GOMEZ, RN-Printed Circuit Board Assembly Repairer - 02/08/19 09:16:23 CM reviewed chart. RRS 38. Cm to room to met pt. Pt spouse in room. spouse stated that pt is off floor for Xray. Spouse stated that DCP is to discharge home with family. Possible hh if a need. CM will continue to follow for d/c needs. ALECIA GOMEZ, JONATAN-Printed Circuit Board Assembly Repairer - 02/07/19 09:05:36 Neva Cotto RN - 02/14/2019 15:08 EST Electronically signed by Lillian [facility] Conversion Design Printer Balloon Cerner at 07/07/2022 9:52 PM CDT documented in this encounter Plan of Treatment Not on file documented as of this encounter Visit Diagnoses Not on filedocumented in this encounter
--- OUTSIDE RECORDS SUMMARY | 2024-11-18 12:54 | XMS_ITS | Encounter Summary ---
Author Organization [employer] ([place], [place], [place], [place]) Address [address] [place] [address] Care Team Providers Care Fit Model Name Role Phone Unavailable Primary Care Provider Unavailabl e Encounter Details Date Type Department Care Team (Late st Contact Info) Description 02/13/2019 Transcribed Document [facility] [place] [facility] [place] [address] ProviderYusuf MD [place] [address] Social History Tobacco Use Types [...] - Yusuf ProviderMD - 02/13/2019 9:25 AM SCIENCE SPECIALIST On Going Discharge Planning Entered On: 02/13/2019 [...] prefer STR. Patient's first choice would be [facility] in [place] and second choice is [facility]. Referrals sent through [facility]. CM will continue to follow. Historical Progress Note : CM reviewed chart. Neuro consult and following, MRI Cervical Thor. and Lumbar Spine. Discussed DCP with pt including HH vs Rehab. CM Will continue to follow for d/c needs. ALECIA GOMEZ RN-Roto Gravure Press Operator - 02/09/19 14:52:38 CM reviewed chart. [...] to follow for d/c needs. ALECIA GOMEZ RN-Roto Gravure Press Operator - 02/08/19 09:16:23 CM reviewed chart. RRS 38. Cm to room to met pt. Pt spouse in room. spouse stated that pt is off floor for Xray. Spouse stated that DCP is to discharge home with family. Possible hh if a need. CM will continue to follow for d/c needs. ALECIA GOMEZ RN-Roto Gravure Press Operator - 02/07/19 09:05:36 Neva Cotto RN - 02/13/2019 9:25 EST Electronically signed by Lillian [facility] Conversion Database Marketing Specialist Cerner at 07/07/2022 10:01 PM CDT documented in this encounter Plan of Treatment Not on file documented as of this encounter Visit Diagnoses Not on filedocumented in this encounter
--- OUTSIDE RECORDS SUMMARY | 2024-11-18 12:54 | XMS_ITS | Encounter Summary ---
Author Organization [employer] ([place], [place], [place], [place]) Address [address] [place] [address] Care Team Providers Care Ticket Printer And Tagger Name Role Phone Unavailable Primary Care Provider Unavailabl e Encounter Details Date Type Department Care Team (Late st Contact Info) Description 02/10/2019 Transcribed Document [facility] [place] [address] [place] [address] ProviderYusuf MD [facility] [place] [address] Social History Tobacco Use Types [...] - Historical ProviderMD - 02/10/2019 5:00 AM RUNWAY MODEL Chart Check - Review Order Profile Entered [...]
--- OUTSIDE RECORDS SUMMARY | 2024-11-18 12:54 | XMS_ITS | Encounter Summary ---
Author Organization [employer] ([place], [place], [place], [place]) Address [address] [place] [address] Care Team Providers Care Physical Therapist Aide Name Role Phone Unavailable Primary Care Provider Unavailabl e Encounter Details Date Type Department Care Team (Late st Contact Info) Description 02/14/2019 Transcribed Document [facility] [place] [address] [place] [address] ProviderYusuf MD [place] [address] Social History Tobacco Use Types [...] - Historical ProviderMD - 02/14/2019 5:00 AM COMMUNICATIONS PROJECT MANAGER Chart Check - Review Order Profile Entered On: 02/14/2019 6:41 EST Performed On: 02/14/2019 5:00 EST by JAYA [place] REGISITERED_ Chart Check Powerplans Initiated/Discontinued as Appropriate : Yes All Active Orders Reviewed : Yes JAYA [place] REGISITERED_ - 02/14/2019 6:41 EST Electronically signed by Lillian [facility] Conversion Manufacturing Test Technician Cerner at 07/07/2022 10:01 PM CDT documented in this encounter Plan of Treatment Not on file documented as of this encounter Visit Diagnoses Not on filedocumented in this encounter
--- OUTSIDE RECORDS SUMMARY | 2024-11-18 12:55 | XMS_ITS | Clinical Summary ---
Author Organization [employer] ([place], [place], [place], [place]) Address [address] [place] [address] Care Team Providers Care Film Sound Coordinator Name Role Phone Unavailable Primary Care [...]
--- OUTSIDE RECORDS SUMMARY | 2024-11-18 12:55 | XMS_ITS | Encounter Summary ---
Author Organization [employer] ([place], [place], [place], [place]) Address [address] [place] [address] Care Team Providers Care Contact Lens Blocker Name Role Phone Unavailable Primary Care Provider Unavailabl e Encounter Details Date Type Department Care Team (Late st Contact Info) Description 02/11/2019 Transcribed Document [facility] [place] [facility] [place] [address] ProviderYusuf MD [facility] [place] [address] Social History Tobacco Use Types [...] - Historical ProviderMD - 02/11/2019 1:30 PM RN PRACTITIONER Pain Assessment Entered On: 02/11/2019 15:30 EST [...]
--- OUTSIDE RECORDS SUMMARY | 2024-11-18 12:55 | XMS_ITS | Encounter Summary ---
Author Organization [employer] ([place], [place], [place], [place]) Address [address] [place] [address] Care Team Providers Care Historical Society Director Name Role Phone Unavailable Primary Care Provider Unavailabl e Encounter Details Date Type Department Care Team (Late st Contact Info) Description 02/05/2019 Transcribed Document [facility] [place] [address] [place] [address] ProviderYusuf MD [address] [place] [address] Social History Tobacco Use Types [...] - Historical ProviderMD - 02/05/2019 10:53 AM LIGHT RAIL OPERATOR SUPERVISOR ORDNANCE TRUCK INSTALLATION Attempt to Treat Entered On: 02/05/2019 10:54 [...]
--- OUTSIDE RECORDS SUMMARY | 2024-11-18 12:55 | XMS_ITS | Encounter Summary ---
Author Organization [employer] ([place], [place], [place], [place]) Address [address] [place] [address] Care Team Providers Care Vault Maker Name Role Phone Unavailable Primary Care Provider Unavailabl e Encounter Details Date Type Department Care Team (Late st Contact Info) Description 02/15/2019 Transcribed Document [facility] [place] [address] [place] [address] ProviderYusuf MD [facility] [place] [address] Social History Tobacco Use Types [...] - Historical ProviderMD - 02/15/2019 2:00 AM SADDLE MAKER Experience Designer Details Entered On: 02/15/2019 6:48 EST Performed [...]
--- OUTSIDE RECORDS SUMMARY | 2024-11-18 12:55 | XMS_ITS | Encounter Summary ---
Author Organization [employer] ([place], [place], [place], [place]) Address [address] [place] [address] Care Team Providers Care Adoption Services Manager Name Role Phone Unavailable Primary Care Provider Unavailabl e Encounter Details Date Type Department Care Team (Late st Contact Info) Description 02/05/2019 Transcribed Document [facility] Radiology 1 [place] [address] Anne Peters MD [address] [place] [address] [address] [place] [id number] Social History Tobacco Use Types Packs/Day Years [...] discharge Referring physician Dr. Johan Sue neurology [facility] Chief complaint bilateral upper and [...] Q4H, PRN: Nausea heparin: 5,000 Units, SubCutaneous, [id number] hydrALAZINE: 5 mg, IV Push, Q4H, PRN: Hypertension morphine: 2 mg, IV Push, Q2H, PRN: Pain (Severe 7-10), No qualifying data available , Medications (8) Active Scheduled: (2) famotidine 20 mg tab 20 mg 1 Tab, Oral, Q12H heparin 5,000 Units, SubCutaneous, [id number] Continuous: (0) PRN: (6) acetaminophen 325 mg [...] gallop, S1+ S2 No S3 or S4 [place].. Gastrointestinal: Soft, Non-tender, Non-distended, Normal bowel sounds. [...]
--- OUTSIDE RECORDS SUMMARY | 2024-11-18 12:55 | XMS_ITS | Encounter Summary ---
Author Organization [employer] ([place], [place], [place], [place]) Address [address] [place] [address] Care Team Providers Care Cable Television Access Coordinator Name Role Phone Unavailable Primary Care Provider Unavailabl e Encounter Details Date Type Department Care Team (Late st Contact Info) Description 02/05/2019 Transcribed Document [facility] [place] [facility] [place] [address] ProviderYusuf MD [facility] [place] [address] Social History Tobacco Use Types [...] - Historical ProviderMD - 02/05/2019 2:38 PM OPERATIONS ASSOCIATE Treatment Intervention, PT Entered On: 02/06/2019 11:48 [...] : Occupational Therapist Assisted by, PT : services tech/aide Personal Devices : Personal Devices Glasses [...] SIVAKUMAR MCKINLEY PT - 02/06/2019 11:44 EST Intermediate Goals Mobility/Bed Mobility LTG PT Grid Goal [...] 02/06/2019 11:44 EST Electronically signed by Lillian [facility] Conversion Investment Counselor Cerner at 07/07/2022 9:58 PM CDT documented in this encounter Plan of Treatment Not on file documented as of this encounter Visit Diagnoses Not on filedocumented in this encounter
--- OUTSIDE RECORDS SUMMARY | 2024-11-18 12:55 | XMS_ITS | Encounter Summary ---
Author Organization [employer] ([place], [place], [place], [place]) Address [address] [place] [address] Care Team Providers Care Powder Monkey Name Role Phone Unavailable Primary Care Provider Unavailabl e Encounter Details Date Type Department Care Team (Late st Contact Info) Description 02/08/2019 Transcribed Document [facility] [place] [address] [place] [address] ProviderYusuf MD [facility] [place] [address] Social History Tobacco Use [...] - Historical ProviderMD - 02/08/2019 5:00 PM SWITCHBOARD OPERATOR HELPER Chart Check - Review Order Profile [...]
--- OUTSIDE RECORDS SUMMARY | 2024-11-18 12:55 | XMS_ITS | Encounter Summary ---
Author Organization [employer] ([place], [place], [place], [place]) Address [address] [place] [address] Care Team Providers Care Zipper Trimmer Name Role Phone Unavailable Primary Care Provider Unavailabl e Encounter Details Date Type Department Care Team (Late st Contact Info) Description 02/15/2019 Transcribed Document [facility] Radiology [address] [place] [address] Zack Jha MD [address] [place] [address] [address] [place] [id number] Social History Tobacco Use Types Packs/Day Years [...] 02/05/2019 Date of discharge: 02/15/2019 Discharge facilitys [facility] Full code at the time of discharge Referring physician Dr. Johan Sue neurology [place] [...] gallop, S1+ S2 No S3 or S4 [place].. Gastrointestinal: Soft, Non-tender, Non-distended, Normal bowel sounds. [...] (FEB 05) Radiology Results (Last 48 hours) [id number] -- 02/05/2019 10:21 CT Abdomen Pelvis WO [...] per history. DC Instructions 1- DC to [facility] today 2- Follow with neurology Dr. [...] minutes Cc DC summary to: PCP, neurology [facility], neurology [facility], rheumatology Dr. Allen, documented in this encounter Plan of Treatment Not on file documented as of this encounter Visit Diagnoses Not on filedocumented in this encounter
--- OUTSIDE RECORDS SUMMARY | 2024-11-18 12:55 | XMS_ITS | Encounter Summary ---
Author Organization [employer] ([place], [place], [place], [place]) Address [address] [place] [address] Care Team Providers Care Wilderness Guide Name Role Phone Unavailable Primary Care Provider Unavailabl e Encounter Details Date Type Department Care Team (Late Contact Info) Description 02/12/2019 Transcribed Document [facility] [place] [facility] [place] [address] ProviderYusuf [place] [address] Social History Tobacco Use Types [...] - Historical ProviderMD - 02/12/2019 5:20 PM SILK WINDING MACHINE OPERATOR Patient: FRANKY SCOTT Age: 74 Years Sex: [...] Tab, Oral, Daily Electronically signed by Lillian, [facility] Conversion Paving Rammer Cerner at 07/07/2022 9:51 PM CDT documented in this encounter Plan of Treatment Not on file documented as of this encounter Visit Diagnoses Not on filedocumented in this encounter
--- OUTSIDE RECORDS SUMMARY | 2024-11-18 12:55 | XMS_ITS | Encounter Summary ---
Author Organization [employer] ([place], [place], [place], [place]) Address [address] [place] [address] Care Team Providers Care Assembly Cleaner Name Role Phone Unavailable Primary Care Provider Unavailabl e Encounter Details Date Type Department Care Team (Late st Contact Info) Description 02/15/2019 Transcribed Document [facility] [place] [facility] [place] [address] ProviderYusuf MD [facility] [place] [address] Social History Tobacco Use Types [...] - Historical ProviderMD - 02/15/2019 10:46 AM UNDERWRITING DIRECTOR Nursing Discharge Summary Entered On: 02/15/2019 10:47 [...] 10:46 EST Electronically signed by Lillian [facility] Conversion Reservoir Engineering Advisor Cerner at 07/07/2022 9:49 PM CDT documented in this encounter Plan of Treatment Not on file documented as of this encounter Visit Diagnoses Not on filedocumented in this encounter
--- OUTSIDE RECORDS SUMMARY | 2024-11-18 12:55 | XMS_ITS | Encounter Summary ---
Author Organization [employer] ([place], [place], [place], [place]) Address [address] [place] [address] Care Team Providers Care Store Hand Name Role Phone Unavailable Primary Care Provider Unavailabl e Encounter Details Date Type Department Care Team (Late st Contact Info) Description 02/15/2019 Transcribed Document [facility] [place] [facility] [place] [address] ProviderYusuf MD [facility] [place] [address] Social History Tobacco Use Types [...] - Yusuf ProviderMD - 02/15/2019 1:26 PM GENERAL SCRAP WORKER [facility] [place], [place] [id number] FRANKY DEWITT :1945 Visit Time:02/05/2019 Your Visit [...] next Instructions From Your Care Team Rehabilitation: [facility] spinal cord unit/ / Discharge Summary: [phone] faxed [facility] Transportation: Car with family Follow up with Dr. Sue in 2 weeks. Follow up with Dr. Allen as recommended in 2-3 weeks. Discharge Follow Up Instructions: Follow-Up Appointments Follow Up with BRISEIDA SUE MD-GIBSON When Within 1 month Where: [address] [facility] [address]- Medications What How Much When Instructions Next [...] ? Manage bowel and bladder problems. ? [place] with mental health problems. ? Manage pain. [...] 02/25/2003 Document Revised: 11/02/2016 Document Reviewed: 05/21/2014 Advanced Cooling Therapy Interactive Patient Education ?? 2019 Advanced [employer]ing [employer] Inc. Near-Syncope Near-syncope is when you suddenly [...] This can help with dizziness. ??? Take srwq-eyb-rrsrcwy and prescription medicines only as told by [...] 08/23/2008 Document Revised: 04/20/2017 Document Reviewed: 11/19/2015 ElseNOBOT Interactive Patient Education ?? 2019 [employer] Inc. Weakness Weakness is a lack of [...] sleep you need each night. ??? Take gsay-gyb-izfycmu and prescription medicines only as told by [...] about working with a physical therapist or operational trainer to help you get stronger. ??? [...] 02/17/2009 Document Revised: 04/01/2016 Document Reviewed: 12/26/2015 Advanced [employer] Interactive Patient Education ?? 2019 Vast. Transverse Myelitis Transverse myelitis is a condition [...] need to see a nervous information systems security developer (neurologist) to have tests, which may include: [...] Follow these instructions at home: ??? Take acji-pby-nkitava and prescription medicines only as told by [...] 02/25/2003 Document Revised: 11/07/2016 Document Reviewed: 08/13/2015 Advanced [employer]ing Therapy Interactive Patient Education ?? 2019 Vast. prednisone (PRED lucas zelda Wallsos What is [...] may report side effects to FDA at 8-705-PMS-7851. What other drugs will affect prednisone? Sometimes [...] may affect prednisone. This includes prescription and gvis-ybs-qoqumqf medicines, vitamins, and herbal products. Not all [...] to ensure that the information provided by ViClone. ('Multum') is accurate, up-to-date, and complete, but no guarantee is made to that effect. Drug information contained herein may be time sensitive. [employer] information has been compiled for use by healthcare practitioners and consumers in the [place] and therefore [employer] does not warrant that uses outside of the [place] are appropriate, unless specifically indicated otherwise. [employer]ops drug information does not endorse drugs, diagnose patients or recommend therapy. [employer]ops drug information is an informational resource designed [...] effective or appropriate for any given patient. [facility] does not assume any responsibility for any aspect of healthcare administered with the aid of information [facility] provides. The information contained herein is not intended to cover all possible uses, directions, precautions, warnings, drug interactions, allergic reactions, or adverse effects. If you have questions about the drugs you are taking, check with your doctor, nurse or pharmacist. Copyright 2040-1042 [facility], [facility] [place]. Version: 10.. Revision Date: 06/15/2018. Emergency Awareness [...] Assistance with quitting is available by contacting 7-125-CTCB-NOW. This is a free resource providing counseling, [...] range between ( 0.0 and 7.0 ) [place] #: 0.75 K/uL -- Normal range between ( 0.16 and 1.00 ) Eos #: 0.08 x10(3)/uL -- Normal range between ( 0.00 and 0.80 ) [place] %: 8.5 % -- Normal range between [...] RBC Morphology: Normal ANC #: 3 K/uL [place] Percent Man: 9 % -- Normal range [...] ) Urine Bilirubin Dipstick: Negative Urine Specific [place]: 1.020 -- Normal range between ( 1.005 [...] was given the opportunity to ask questions. Patient/Detail Maker And Fitter Name: Patient/Detail Maker And Fitter Signature: Relationship to Patient: Clinician/Hospital Detail Maker And Fitter Signature: Date: documented in this encounter Plan of Treatment Not on file documented as of this encounter Visit Diagnoses Not on filedocumented in this encounter
--- OUTSIDE RECORDS SUMMARY | 2024-11-18 12:55 | XMS_ITS | Encounter Summary ---
Author Organization [employer] ([place], [place], [place], [place]) Address [address] [place] [address] Care Team Providers Care Head Scorer Name Role Phone Unavailable Primary Care Provider Unavailabl e Encounter Details Date Type Department Care Team (Late st Contact Info) Description 02/07/2019 Transcribed Document [facility] [place] [facility] [address] ProviderYusuf [place] [address] Social History Tobacco Use [...] - Historical ProviderMD - 02/07/2019 5:00 AM PROTOTYPER Chart Check - Review Order Profile Entered [...]
--- OUTSIDE RECORDS SUMMARY | 2024-11-18 12:55 | XMS_ITS | Encounter Summary ---
Author Organization [employer] ([place], [place], [place], [place]) Address [address] [place] [address] Care Team Providers Care Drying And Winding Supervisor Name Role Phone Unavailable Primary Care Provider Unavailabl e Encounter Details Date Type Department Care Team (Late st Contact Info) Description 02/15/2019 Transcribed Document [facility] [place] [facility] [place] [address] ProviderYusuf MD [facility] [place] [address] Social History [...] - Yusuf ProviderMD - 02/15/2019 11:32 AM VIDEO EDITING INTERN Final Discharge Planning Entered On: 02/15/2019 11:35 EST Performed On: 02/15/2019 11:32 EST by ALECIA GOMEZ RN-Free Lance Artist Final Discharge Planning Discharge Arrangements : Patient Post-Acute Information Patient Name: FRANKY DEWITT Gender: Female : [birth year] Age: 74 Years Curaspan Referral(s): Service: Organization: Business Address: Phone Number: [facility] [address] [place], [address] Patient Offered Choice/Affiliations Explained : Yes Transportation Needs : Family/Friend ALECIA GOMEZ RN-Free Lance Artist - 02/15/2019 11:32 EST Final Narrative Note Final Narrative Note : CM reviewed chart. CM met with pt to discuss DCP. [facility] spinal Cord unti today. will transport. IM and choice signed. Report to Rehabilitation: [facility] spinal cord unit/ Discharge Summary: [phone] faxed [facility] Follow up with Dr. Sue in 2 weeks. Pt informed. Follow up with Dr. Allen as recommended in 2-3 weeks. Pt informed. Historical Narrative Note : CM reviewed chart. RRS 32. CM met to discuss DCP. [facility] spinal cord unit today. will transport. IM and Choice signed.. Cm informed pharmacy and bedside RN. Confirmed with [facility]. No further needs noted. ALECIA GOMEZ, RN-Free Lance Artist - 02/15/19 11:02:20 ALECIA GOMEZ, JONATAN-Free Lance Artist - 02/15/2019 11:32 EST documented in this encounter Plan of Treatment Not on file documented as of this encounter Visit Diagnoses Not on filedocumented in this encounter
--- OUTSIDE RECORDS SUMMARY | 2024-11-18 12:55 | XMS_ITS | Referral Summary ---
Author Organization [employer] ([place], [place], [place], [place]) Address [address] [place] [address] Care Team Providers Care Security Advisor Name Role Phone Unavailable Primary Care [...]
--- OUTSIDE RECORDS SUMMARY | 2024-11-18 12:55 | XMS_ITS | Encounter Summary ---
Author Organization [employer] ([place], [place], [place], [place]) Address [address] [place] [address] Care Team Providers Care Real Estate Clerk Name Role Phone Unavailable Primary Care Provider Unavailabl e Encounter Details Date Type Department Care Team (Late st Contact Info) Description 02/15/2019 Transcribed Document [facility] [place] Family Medicine [address] [place] [address] ProviderYusuf MD [facility] [address] Social History Tobacco Use Types [...] - Historical ProviderMD - 02/15/2019 5:00 AM TYPE ROLLING MACHINE OPERATOR Chart Check - Review Order Profile Entered On: 02/15/2019 6:55 EST Performed On: 02/15/2019 5:00 EST by Esther Cheek RN Chart Check All Active Orders Reviewed : Yes Esther Cheek RN - 02/15/2019 6:55 EST Electronically signed by Lillian [facility] Conversion Copy Reader Cerner at 07/07/2022 9:50 PM CDT documented in this encounter Plan of Treatment Not on file documented as of this encounter Visit Diagnoses Not on filedocumented in this encounter
--- OUTSIDE RECORDS SUMMARY | 2024-11-18 12:55 | XMS_ITS | Encounter Summary ---
Author Organization [employer] ([place], [place], [place], [place]) Address [address] [place] [address] Care Team Providers Care Clinical Documentation Clerk Name Role Phone Unavailable Primary Care Provider Unavailabl e Encounter Details Date Type Department Care Team (Late st Contact Info) Description 02/12/2019 Transcribed Document [facility] [place] Family Medicine [address] [place] [address] ProviderYusuf MD [facility] [place] [address] Social History Tobacco Use Types [...] - Historical ProviderMD - 02/12/2019 5:00 AM OTHER SPATIAL SCIENTIST Chart Check - Review Order Profile Entered On: 02/12/2019 7:02 EST Performed On: 02/12/2019 5:00 EST by JAYA WASHINGTON REGISITERED_ Chart Check Powerplans Initiated/Discontinued as Appropriate : Yes All Active Orders Reviewed : Yes JAYA WASHINGTON REGISITERED_ - 02/12/2019 7:02 EST Electronically signed by Lillian [facility] Conversion Account Support Rep Cerner at 07/07/2022 9:55 PM CDT documented in this encounter Plan of Treatment Not on file documented as of this encounter Visit Diagnoses Not on filedocumented in this encounter
--- OUTSIDE RECORDS SUMMARY | 2024-11-18 12:55 | XMS_ITS | Encounter Summary ---
Author Organization [employer] ([place], [place], [place], [place]) Address [address] [place] [address] Care Team Providers Care Telecom Sales Consultant Name Role Phone Unavailable Primary Care Provider Unavailabl e Encounter Details Date Type Department Care Team (Late st Contact Info) Description 02/15/2019 Transcribed Document [facility] [place] [facility] [place] [address] ProviderYusuf MD [facility] [place] [address] Social History Tobacco Use Types [...] - Yusuf ProviderMD - 02/15/2019 1:24 PM MEDICAL TECHNICIANS [facility] [place], [place] [id number] FRANKY DEWITT :1945 Visit Time:02/05/2019 Your Visit [...] next Instructions From Your Care Team Rehabilitation: [facility] spinal cord unit/ / Discharge Summary: [phone] faxed [facility] Transportation: Car with family Follow up with Dr. Sue in 2 weeks. Follow up with Dr. Allen as recommended in 2-3 weeks. Discharge Follow Up Instructions: Follow-Up Appointments Follow Up with BRISEIDA SUE MD-GIBSON When Within 1 month Where: [address] [facility] [place] [address]- Medications What How Much When Instructions Next [...] ? Manage bowel and bladder problems. ? [place] with mental health problems. ? Manage pain. [...] 02/25/2003 Document Revised: 11/02/2016 Document Reviewed: 05/21/2014 Pre Play Sports Interactive Patient Education ?? 2019 Pre Play Sports Inc. Near-Syncope Near-syncope is when you suddenly [...] This can help with dizziness. ??? Take ypay-dkd-xlualel and prescription medicines only as told by [...] 08/23/2008 Document Revised: 04/20/2017 Document Reviewed: 11/19/2015 ElseTi-Bi Technology Interactive Patient Education ?? 2019 Pre Play Sports Inc. Weakness Weakness is a lack of [...] sleep you need each night. ??? Take bvpo-hin-xbeysom and prescription medicines only as told by [...] about working with a physical therapist or whale trainer to help you get stronger. ??? [...] 02/17/2009 Document Revised: 04/01/2016 Document Reviewed: 12/26/2015 Pre Play Sports Interactive Patient Education ?? 2019 Bundle Buy. Transverse Myelitis Transverse myelitis is a condition [...] may need to see a nervous system software programmer (neurologist) to have tests, which may include: [...] Follow these instructions at home: ??? Take ohyq-ywr-pawikqs and prescription medicines only as told by [...] 02/25/2003 Document Revised: 11/07/2016 Document Reviewed: 08/13/2015 Pre Play Sports Interactive Patient Education ?? 2019 Bundle Buy. prednisone (PRED lucas zelda Wallsos What is [...] may report side effects to FDA at 5-824-JGS-1017. What other drugs will affect prednisone? Sometimes [...] may affect prednisone. This includes prescription and nmxb-aae-irzxewq medicines, vitamins, and herbal products. Not all [...] to ensure that the information provided by Beat.[employer]. ('Multum') is accurate, up-to-date, and complete, but no guarantee is made to that effect. Drug information contained herein may be time sensitive. c-crowd information has been compiled for use by healthcare practitioners and consumers in the [place] and therefore c-crowd does not warrant that uses outside of the [place] are appropriate, unless specifically indicated otherwise. InfluxDBs drug information does not endorse drugs, diagnose patients or recommend therapy. InfluxDBs drug information is an informational resource designed [...] effective or appropriate for any given patient. [facility] does not assume any responsibility for any aspect of healthcare administered with the aid of information [facility] provides. The information contained herein is not intended to cover all possible uses, directions, precautions, warnings, drug interactions, allergic reactions, or adverse effects. If you have questions about the drugs you are taking, check with your doctor, nurse or pharmacist. Copyright 9680-[address] [facility] Call. Version: 10.. Revision Date: 06/15/2018. Emergency Awareness [...] Assistance with quitting is available by contacting 8-758-EJBO-NOW. This is a free resource providing counseling, [...] range between ( 0.0 and 7.0 ) [place] #: 0.75 K/uL -- Normal range between ( 0.16 and 1.00 ) Eos #: 0.08 x10(3)/uL -- Normal range between ( 0.00 and 0.80 ) [place] %: 8.5 % -- Normal range between [...] RBC Morphology: Normal ANC #: 3 K/uL [place] Percent Man: 9 % -- Normal range [...] ) Urine Bilirubin Dipstick: Negative Urine Specific [place]: 1.020 -- Normal range between ( 1.005 [...] was given the opportunity to ask questions. Patient/Spray Painter Name: Patient/Spray Painter Signature: Relationship to Patient: Clinician/Hospital Spray Painter Signature: Date: documented in this encounter Plan of Treatment Not on file documented as of this encounter Visit Diagnoses Not on filedocumented in this encounter
--- OUTSIDE RECORDS SUMMARY | 2024-11-18 12:55 | XMS_ITS | Encounter Summary ---
Author Organization [employer] ([place], [place], [place], [place]) Address [address] [place] [address] Care Team Providers Care Bench Repair Technician Name Role Phone Unavailable Primary Care Provider Unavailabl e Encounter Details Date Type Department Care Team (Late st Contact Info) Description 02/15/[address] [facility] [place] [address] [place] [address] ProviderYusuf MD [facility] [place] [address] Social History Tobacco Use Types [...] - Historical ProviderMD - 02/15/2019 10:46 AM QA SOFTWARE TEST ENGINEER Stroke/Warfarin Instructions Entered On: 02/15/2019 10:46 EST [...]
--- OUTSIDE RECORDS SUMMARY | 2024-11-18 12:55 | XMS_ITS | Encounter Summary ---
Author Organization [employer] ([place], [place], [place], [place]) Address [address] [place] [address] Care Team Providers Care Thoroughbred Horse Farm Manager Name Role Phone Unavailable Primary Care Provider Unavailabl e Encounter Details Date Type Department Care Team (Late st Contact Info) Description 02/12/2019 Transcribed Document [facility] [place] [facility] [place] [address] ProviderYusuf MD [facility] [place] [address] Social History Tobacco Use Types [...] - Historical ProviderMD - 02/12/2019 9:00 AM DIRECTOR WOMEN Pain Assessment Entered On: 02/12/2019 11:07 EST [...]
--- OUTSIDE RECORDS SUMMARY | 2024-11-18 12:55 | XMS_ITS | Encounter Summary ---
Author Organization [employer] ([place], [place], [place], [place]) Address [address] [place] [address] Care Team Providers Care Product Marketing Engineer Name Role Phone Unavailable Primary Care Provider Unavailabl e Encounter Details Date Type Department Care Team (Late st Contact Info) Description 02/08/2019 Transcribed Document [facility] [place] [facility] [place] [address] ProviderYusuf MD [facility] [place] [address] Social History Tobacco Use Types [...] - Historical ProviderMD - 02/08/2019 6:01 AM CHUTE MAN Event Note Entered On: 02/08/2019 6:04 EST [...]
--- OUTSIDE RECORDS SUMMARY | 2024-11-18 12:55 | XMS_ITS | Encounter Summary ---
Author Organization [employer] ([place], [place], [place], [place]) Address [address] [place] [address] Care Team Providers Care Insole Presser Name Role Phone Unavailable Primary Care Provider Unavailabl e Encounter Details Date Type Department Care Team (Late st Contact Info) Description 02/05/2019 Transcribed Document [facility] [place] [facility] [place] [address] ProviderYusuf MD [facility] [place] [address] Social History Tobacco Use Types [...] - Historical ProviderMD - 02/05/2019 10:[address] REPORTER Pain Assessment Entered On: 02/09/2019 15:20 EST [...]
--- OUTSIDE RECORDS SUMMARY | 2024-11-18 12:55 | XMS_ITS | Encounter Summary ---
Author Organization [employer] ([place], [place], [place], [place]) Address [address] [place] [address] Care Team Providers Care Tape Coater Name Role Phone Unavailable Primary Care Provider Unavailabl e Encounter Details Date Type Department Care Team (Late st Contact Info) Description 02/08/2019 Transcribed Document [facility] Radiology [address] [place] [address] Anne Peters MD [address] [place] [address] [address] [place] [id number] Social History Tobacco Use Types Packs/Day Years [...] Referring physician Dr. Johan Sue neurology [facility] Chief complaint bilateral upper and lower [...] At risk for sleep apnea / IMO [id number] / Confirmed, Active Problems (3) At risk [...] gallop, S1+ S2 No S3 or S4 [place].. Gastrointestinal: Soft, Non-tender, Non-distended, Normal bowel sounds. [...] (FEB 05) Radiology Results (Last 48 hours) [id number] -- 02/05/2019 10:21 CR Fluoro GD Lumbar Punct Dx (02/06/2019 14:40) Result: LUMBAR PUNCTURE AND FLUOROSCOPYHISTORY: Transverse myelitis.ATTENDING PHYSICIAN: Baljit Gee M.D.PHYSICIAN POLISHER HAND: KELSIE LuqueCPROCEDURE: After informed consent was obtained [...]
--- OUTSIDE RECORDS SUMMARY | 2024-11-18 12:55 | XMS_ITS | Encounter Summary ---
Author Organization [employer] ([place], [place], [place], [place]) Address [address] [place] [address] Care Team Providers Care Touch Up Painter Name Role Phone Unavailable Primary Care Provider Unavailabl e Encounter Details Date Type Department Care Team (Late st Contact Info) Description 02/15/2019 Transcribed Document [facility] [place] [facility] [place] [address] ProviderYusuf MD [facility] [place] [address] Social History Tobacco Use Types [...] - Yusuf ProviderMD - 02/15/2019 10:59 AM BULL GANG WORKER Final Discharge Planning Entered On: 02/15/2019 11:02 EST Performed On: 02/15/2019 10:59 EST by ALECIA GOMEZ RN-Backroom Associate Final Discharge Planning Discharge Arrangements : Patient Post-Acute Information Patient Name: FRANKY SCOTT Gender: Female : [birth year] Age: 74 Years Curaspan Referral(s): Service: Organization: Business Address: Phone Number: Acute Rehab [facility] [address] [place], [address] Patient Offered Choice/Affiliations Explained : Yes Transportation Needs : Family/Friend Discharge To Care Management : IRF -Inpatient Rehabilitation Facility- ALECIA GOMEZ RN-Backroom Associate - 02/15/2019 10:59 EST Final Narrative Note Final Narrative Note : CM reviewed chart. RRS 32. CM met to discuss DCP. [facility] spinal cord unit today. will transport. IM and Choice signed.. Cm informed pharmacy and bedside RN. Confirmed with [facility]. No further needs noted. ALECIA GOMEZ, JONATAN-Backroom Associate - 02/15/2019 10:59 EST Electronically signed by Interface, [facility] Conversion Roll Icer Machine Cerner at 07/07/2022 9:55 PM CDT documented in this encounter Plan of Treatment Not on file documented as of this encounter Visit Diagnoses Not on filedocumented in this encounter
--- OUTSIDE RECORDS SUMMARY | 2024-11-18 12:55 | XMS_ITS | Encounter Summary ---
Author Organization [employer] ([place], [place], [place], [place]) Address [address] [place] [address] Care Team Providers Care Plate Embosser Name Role Phone Unavailable Primary Care Provider Unavailabl e Encounter Details Date Type Department Care Team (Late st Contact Info) Description 02/08/[address] [facility] [place] Medicine [facility] [place] [address] ProviderYusuf MD [facility] [place] [address] Social History Tobacco Use Types [...] - Historical ProviderMD - 02/08/2019 2:23 PM SHOVEL LOGGER Patient: FRANKY SCOTT Age: 74 Years Sex: [...] overnight and is now wearing 02 by MS. Psychiatric - patient received some IV Lorazepam overnight for anxiety . She denies any suicidality . Objective Vitals & Measurements T: 36.6 ??C TMIN: 36.3 ??C TMAX: 36.8 ??C HR: 83(Monitored) RR: 16 BP: 143/85 SpO2: 97% WT: 80 kg Physical Exam Patient lying comfortably in bed wearing 02 by MS. Motor - 4/5 in both arms. 2/5 [...]
--- OUTSIDE RECORDS SUMMARY | 2024-11-18 12:55 | XMS_ITS | Encounter Summary ---
Author Organization [employer] ([place], [place], [place], [place]) Address [address] [place] [address] Care Team Providers Care Sales Development Representative Name Role Phone Unavailable Primary Care Provider Unavailabl e Encounter Details Date Type Department Care Team (Late st Contact Info) Description 02/11/2019 Transcribed Document [facility] Radiology [address] [place] [address] Anne ePters MD [address] [place] [address] [address] [place] [id number] Social History Tobacco Use Types Packs/Day Years [...] At risk for sleep apnea / IMO [id number] / Confirmed, Active Problems (3) At risk [...] gallop, S1+ S2 No S3 or S4 [place].. Gastrointestinal: Soft, Non-tender, Non-distended, Normal bowel sounds. [...]
--- OUTSIDE RECORDS SUMMARY | 2024-11-18 12:55 | XMS_ITS | Encounter Summary ---
Author Organization [employer] ([place], [place], [place], [place]) Address [address] [place] [address] Care Team Providers Care Nonprofit Director Name Role Phone Unavailable Primary Care Provider Unavailabl e Encounter Details Date Type Department Care Team (Late st Contact Info) Description 02/12/2019 Transcribed Document [facility] [place] [facility] [place] [address] ProviderYusuf MD [facility] [place] [address] Social History Tobacco Use Types [...] - Historical ProviderMD - 02/12/2019 8:56 AM SALESPERSON [place] [employer] GLASS[employer] Consult Phone Call Documentation Entered On: 02/12/2019 9:20 EST Performed On: 02/12/2019 8:56 EST by Gloria Acosta [facility] Phone Call for Consults Consult Phone Call/Page Attempt : First call Gloria Acosta [facility] - 02/12/2019 9:20 EST Consult Reason : Cervical Myopathy Physician Requesting Consult : BASHIR RAYMOND MD-INT Provider Service Notified Name : Other: Rheumatology Date and Time Call Returned : 02/12/2019 8:56 EST Gloria Acosta [facility] - 02/12/2019 9:17 EST Electronically signed by Llilian [facility] Conversion Mushroom Grower Cerner at 07/07/2022 9:51 PM CDT documented in this encounter Plan of Treatment Not on file documented as of this encounter Visit Diagnoses Not on filedocumented in this encounter
--- OUTSIDE RECORDS SUMMARY | 2024-11-18 12:55 | XMS_ITS | Encounter Summary ---
Author Organization [employer] ([place], [place], [place], [place]) Address [address] [place] [address] Care Team Providers Care Test Boring Crew Chief Name Role Phone Unavailable Primary Care Provider Unavailabl e Encounter Details Date Type Department Care Team (Late st Contact Info) Description 02/16/2019 Transcribed Document [facility] [place] [facility] [place] [address] ProviderYusuf MD [facility] [place] [address] Social History Tobacco Use Types [...] - Historical ProviderMD - 02/16/2019 7:49 AM PLUG SAW OPERATOR Discharge Summary, PT Entered On: 02/16/2019 7:50 [...] with a Rwx. She was D/C [facility] for follow up rehab. ROBERT [...] ROBERT TINAJERO, PT - 02/16/2019 7:49 EST Five Piece Expansion Maker Hand Goals Mobility/Bed Mobility LTG PT Grid Goal [...] 02/16/2019 7:49 EST Electronically signed by Lillian [facility] Conversion Sustainability Purchasing Agent Cerner at 07/07/2022 9:48 PM CDT documented in this encounter Plan of Treatment Not on file documented as of this encounter Visit Diagnoses Not on filedocumented in this encounter
--- OUTSIDE RECORDS SUMMARY | 2024-11-18 12:55 | XMS_ITS | Encounter Summary ---
Author Organization [employer] ([place], [place], [place], [place]) Address [address] [place] [address] Care Team Providers Care Seo Consultant Name Role Phone Unavailable Primary Care Provider Unavailabl e Encounter Details Date Type Department Care Team (Late st Contact Info) Description 02/07/2019 Transcribed Document [facility] [place] [facility] [place] [address] ProviderYusuf MD [facility] [place] [address] Social History Tobacco Use Types [...] - Yusuf ProviderMD - 02/07/2019 9:04 AM LIBRARIAN On Going Discharge Planning Entered On: 02/07/2019 9:05 EST Performed On: 02/07/2019 9:04 EST by ALECIA GOMEZ RN-Environmental EducatorPrint Production Manager Progress Note Discharge Arrangements : Patient [...] Meeting Medical Necessity : Yes ALECIA GOMEZ RN-Environmental Educator - 02/07/2019 9:04 EST Narrative Progress Note Narrative Progress Note : CM reviewed chart. RRS 38. Cm to room to met pt. Pt spouse in room. spouse stated that pt is off floor for Xray. Spouse stated that DCP is to discharge home with family. Possible hh if a need. CM will continue to follow for d/c needs. ALECIA GOMEZ, RN-Environmental Educator - 02/07/2019 9:04 EST documented in this encounter Plan of Treatment Not on file documented as of this encounter Visit Diagnoses Not on filedocumented in this encounter
--- OUTSIDE RECORDS SUMMARY | 2024-11-18 12:55 | XMS_ITS | Encounter Summary ---
Author Organization [employer] ([place], [place], [place], [place]) Address [address] [place] [address] Care Team Providers Care Barrel Finisher Name Role Phone Unavailable Primary Care Provider Unavailabl e Encounter Details Date Type Department Care Team (Late st Contact Info) Description 02/12/2019 Transcribed Document [facility] [place] Family Medicine [address] [place] [address] ProviderYusuf MD [facility] [place] [address] Social History Tobacco Use Types [...] - Historical ProviderMD - 02/12/2019 9:00 AM METAL SPONGE MAKING MACHINE OPERATOR Consult Phone Call Documentation Entered On: 02/12/2019 9:21 EST Performed On: 02/12/2019 9:00 EST by Gloria Acosta [facility] Phone Call for Consults Consult Phone Call/Page Attempt : Other: Md called Consult Reason : Thrombocytosis Physician Requesting Consult : BASHIR RAYMOND MD-INT Physician Requested for Consult : EMANUEL MITCHELL MD-RHE Provider Service Notified Name : Other: Oncology Date and Time Call Returned : 02/12/2019 8:56 EST Gloria Acosta [facility] - 02/12/2019 9:20 EST Electronically signed by Lillian [facility] Conversion Creative Perfumer Cerner at 07/07/2022 9:48 PM CDT documented in this encounter Plan of Treatment Not on file documented as of this encounter Visit Diagnoses Not on filedocumented in this encounter
--- OUTSIDE RECORDS SUMMARY | 2024-11-18 12:56 | XMS_ITS | Encounter Summary ---
Author Organization [employer] ([place], [place], [place], [place]) Address [address] [place] [address] Care Team Providers Care Lithographic Retoucher Apprentice Name Role Phone Unavailable Primary Care Provider Unavailabl e Encounter Details Date Type Department Care Team (Late st Contact Info) Description 02/05/2019 Transcribed Document [facility] Radiology [address] [place] [address] Anne Peters MD [address] [place] [address] [address] [place] [id number] Social History Tobacco Use Types Packs/Day Years [...] Referring physician Dr. Johan Sue neurology [facility] Chief complaint bilateral upper and [...] Q4H, PRN: Nausea heparin: 5,000 Units, SubCutaneous, [id number] hydrALAZINE: 5 mg, IV Push, Q4H, PRN: Hypertension morphine: 2 mg, IV Push, Q2H, PRN: Pain (Severe 7-10), No qualifying data available , Medications (8) Active Scheduled: (2) famotidine 20 mg tab 20 mg 1 Tab, Oral, Q12H heparin 5,000 Units, SubCutaneous, [id number] Continuous: (0) PRN: (6) acetaminophen 325 mg [...] gallop, S1+ S2 No S3 or S4 [place].. Gastrointestinal: Soft, Non-tender, Non-distended, Normal bowel sounds. [...]
--- OUTSIDE RECORDS SUMMARY | 2024-11-18 12:56 | XMS_ITS | Encounter Summary ---
Author Organization [employer] ([place], [place], [place], [place]) Address [address] [place] [address] Care Team Providers Care Geodetic Survey Director Name Role Phone Unavailable Primary Care Provider Unavailabl e Encounter Details Date Type Department Care Team (Late st Contact Info) Description 02/05/2019 Transcribed Document [facility] [place] [facility] [address] ProviderYusuf MD [facility] [address] Social History Tobacco Use Types [...] - Historical ProviderMD - 02/05/2019 6:08 PM NEWSPAPER PEDDLER DATE OF CONSULTATION: 02/05/2019 HISTORY OF PRESENT [...] , she had to attend a in [facility] where she and her spent a lot of time walking around [facility] and during that walking trip around [facility], when she tried to get her legs into an SUV, she noticed that both of her legs were weak and she was having trouble lifting her legs up to get into the SUV. When she returned back to [place] in late December, she received another steroid [...] even went to an emergency room in [facility] recently and they let her go [...] 4. Hydrochlorothiazide. 5. Losartan. 6. Biotin. 7. [place]-3. 8. Potassium. 9. Zoloft. 10. Coenzyme Q. [...] years. SOCIAL HISTORY: The patient lives in [place] with her . She has three children. [...] through XII are intact. Coordination shows intact [id number] and [id number]. Reflexes are hyperactive throughout at 2 to 3+ with bilaterally upgoing toes. Sensory exam shows intact joint position in both feet. Gait was not tested. LABORATORY DATA: The patient had an MRI scan of her brain done at [facility] on February 02 as being read, showing [...] her . I will follow with you. /[id number] MD ROSIO Leone/ERASMO / ROSIO / MODL /[id number] documented in this encounter Plan of Treatment Not on file documented as of this encounter Visit Diagnoses Not on filedocumented in this encounter
--- OUTSIDE RECORDS SUMMARY | 2024-11-18 12:56 | XMS_ITS | Patient Health Record ---
Author Organization [facility] Address [address] [facility] [address] [place] [id number] Care Team Providers Care Pharmacy Student Name Role Phone Jensen Santiago Primary Care Provider [phone] Maryanne Malik Unavailable [phone] Allergies Allergen (clinical drug ingredient) Drug/Non Drug [...] Interpretation:sensitive Performing Lab: Notes/Report: Test performed by [facility] [address] [facility] , [address], [place] [address] Danilo Duran MD, Senior Qualitative Researcher CLIA: [id number] Specimen Source Urine - Cath Culture, Urine See Below See Microbiol ogy Report Escherichia coli ESBL 50,000-100,000 CFU /ml Escherichia coli ESBL This isolate is a confirmed ESBL (Extended Spectrum Beta-Lactamase) oil producer and should be considered clinically resistant [...] Interpretation: Performing Lab: Notes/Report: Test performed by [facility], [address] , [address], [place] [address] Danilo Duran MD, Senior Qualitative Researcher CLIA: [id number] Specimen Source Urine - Cath Culture, Urine See Below See Microbiol ogy Report Klebsiella pneumoniae ESBL 25,000-50,000 CFU/ml Klebsiella pneumoniae ESBL This isolate is a confirmed ESBL (Extended Spectrum Beta-Lactamase) oil producer and should be considered clinically resistant [...] S Trimeth/Sulfa R ___ S=SUSCEPTIBLE I=INTERMEDIATE R=RESISTANT H-BMP (Not yet reviewed by munira ellis) Interpretation: Performing Lab: Notes/Report: NA 139 136-145 mmol/L K 3.9 3.5-5.1 mmoL/L CL 105 98-107 mmol/L CO2 28 22.0-30.0 mmol/L GAP 9.9 5-15 mEq/L BUN 21 7-17 mg/dl CREATT 1.00 0.52-1.04 mg/dl GFRAA 65 >60 ML/MIN EGFR 54 >60 ml/min GLU 94 74-100 mg/dl CA 9.7 8.4-10.2 mg/dl Urinalysis - Inhouse Reviewed date:03/23/2024 03:23:26 PM Interpretation: Performing Lab: Notes/Report: Color/Clarity yellow/clear Leuk Neg Nitrite Neg Urobili 3.2 Protein Neg pH 5.5 Blood Neg Sp. Gr. 1.015 Ketone Neg Bili Neg Gluc Neg TEN-UTI panel Reviewed date:2024 11:51:57 AM Interpretation:Rejected. See 01/09/24 Order Performing Lab: Notes/Report: Rejected. See 01/09/24 Order Urinalysis - Inhouse Reviewed date:01/02/2024 04:09:19 PM Interpretation: Performing Lab: Notes/Report: Color/Clarity yellow/clear Leuk trace Nitrite neg Urobili 3.2 Protein neg pH 6.0 Blood neg Sp. Gr. 1.010 Ketone neg Bili neg Gluc neg Covid [...] 1.015 Ketone neg Bili neg Gluc neg TEN-UTI [...] pneumoniae Performing Lab: Notes/Report: Test performed by [facility] [address] , [address], [place] [address] Danilo Duran MD, Senior Qualitative Researcher CLIA: [id number] Specimen Source Urine - Void Culture, Urine See Below See Microbiol ogy Report Klebsiella pneumoniae ESBL 50,000-100,000 CFU/ml Klebsiella pneumoniae ESBL This isolate is a confirmed ESBL (Extended Spectrum Beta-Lactamase) oil producer and should be considered clinically resistant [...] Notes/Report: Klebsiella pneumoniae Urinalysis - Inhouse Reviewed date:07/10/2024 05:16:27 PM [...] Coli Performing Lab: Notes/Report: Test performed by [facility], [address] , [address], [place] [address] Danilo Duran MD, Senior Qualitative Researcher CLIA: [id number] Specimen Source Urine - Void Culture, Urine See Below See Microbiol ogy Report Escherichia coli ESBL 50,000-100,000 CFU /ml Escherichia coli ESBL This isolate is a confirmed ESBL (Extended Spectrum Beta-Lactamase) oil producer and should be considered clinically resistant [...] ___ S=SUSCEPTIBLE I=INTERMEDIATE R=RESISTANT TEN-UTI panel Reviewed date:10/19/2024 08:23:33 AM Interpretation:Klebsiella pneumoniae Performing Lab: Notes/Report: Klebsiella pneumoniae Mammogram Reviewed date:09/19/2024 01:22:46 PM Interpretation:Negative Performing Lab: Notes/Report: Negative result negative Urinalysis - Inhouse Reviewed date:06/12/2024 02:41:39 PM Interpretation: Performing Lab: Notes/Report: Color/Clarity yellow/cloudy Leuk 2+ Nitrite neg Urobili 3.2 Protein 1+ pH 5.5 Blood trace Sp. Gr. 1.015 Ketone neg Bili neg Gluc neg P-Culture, Urine Reviewed date:06/15/2024 01:26:54 PM Interpretation: Performing Lab: Notes/Report: Test performed by [facility] [address] [place] [address] , [address], [place] [address] Danilo Duran MD, Senior Qualitative Researcher CLIA: [id number] Specimen Source Urine - Void Culture, Urine See Below See Microbiol ogy Report Klebsiella pneumoniae ESBL 50,000-100,000 CFU/ml Klebsiella pneumoniae ESBL This isolate is a confirmed ESBL (Extended Spectrum Beta-Lactamase) oil producer and should be considered clinically resistant [...] S Trimeth/Sulfa R ___ S=SUSCEPTIBLE I=INTERMEDIATE R=RESISTANT Reason For Referral Diagnosis 1 Neurogenic bladder ( N31.9) [facility] Referring Provider First Name Jensen Referring Provider Last Name Pamela Referring Provider [facility] ctice Referred Provider Adam Kingston Referred Provider Specialty Urology General Notes Ninfa Correa 05/18/19 11:15:42 AM > faxed referral to 's office Referral Priority Routine Reason [facility] Diagnosis 1 Chronic UTI (N39.0) Diagnosis 2 Urinary retention (R 33.9) Diagnosis 3 Urinary incontinence in female (R32) Diagnosis 4 Bladder spasms (N32. 89) [facility] Referring Provider First Name Jensen Referring Provider Last Name Pamela Referring Provider [facility] ctice Referred Provider Specialty Urology General Notes Ninfa Correa 2024 10:53:56 AM > faxed referral to [facility] Referral Priority Routine Diagnosis 1 Urinary retention (R 33.9) Diagnosis 2 Chronic UTI (N39.0) Diagnosis 3 Other urinary incont inence (N39.498) Diagnosis 4 Neurogenic bladder ( N31.9) [facility] Referring Provider First Name Jensen Referring Provider Last Name Pamela Referring Provider [facility] ctice Referred Provider Fifi [place] General Notes Ninfa Correa 2024 08:45:29 AM > faxed referral to [facility] Urogynecology Referral Priority Routine [...] Take 1 capsule by m out once daily; Duration: 90 Active Hyoscyamine Sulfate [...] 05/11/2018 Administered xFlu shot- 6months-36 months of qcb-STRY-FAZS-trivalent Unknown 02/08/2016 Administered xFluzone (6mos and older)-trivalent IM Intramuscular 02/05/2013 Administered xFluzone High Dose-private (65yr&older) IM Intramuscular 02/20/2014 Administered Problems Problem Type SNOMED Code ICD Code Onset Dates Problem Status W/U Status Risk Notes Problem Information temporarily unavailable Vitamin D deficiency (E55.9) Active confirmed Problem Information temporarily unavailable Essential hypertension (I10) Active confirmed Problem Information temporarily unavailable Anxiety (F41.9) Active confirmed Problem Information temporarily unavailable Urinary retention (R33.9) Active confirmed Problem Information temporarily unavailable Osteopenia (M85.80) Active confirmed Problem Information temporarily unavailable Neurogenic bladder (N31.9) Active confirmed Problem Information temporarily unavailable OAB (overactive bladder) (N32.81) Active confirmed Problem Information temporarily unavailable Mixed hyperlipidemia (E78.2) Active confirmed Problem Information temporarily unavailable Urge incontinence (N39.41) Active confirmed Problem Information temporarily unavailable Full incontinence of feces (R15.9) Active confirmed Problem Information temporarily unavailable Hx of colonic polyps (Z86.010) Active confirmed Problem Information temporarily unavailable Neuropathy (G62.9) Active confirmed Problem Information temporarily unavailable Ataxia (R27.0) Active confirmed Problem Information temporarily unavailable Claudication (I73.9) Active confirmed Problem Information temporarily unavailable Chronic UTI (N39.0) Active confirmed Problem Information temporarily unavailable BMI 31.0-31.9,adult (Z68.31) Active confirmed Problem Information temporarily unavailable BMI 34.0-34.9,adult (Z68.34) Active confirmed Problem Information temporarily unavailable Bladder spasms (N32.89) Active confirmed Problem Information temporarily unavailable Urge incontinence of urine (N39.41) Active confirmed Problem Information temporarily unavailable Raynaud's disease without gangrene (I73.00) Active confirmed Problem Information temporarily unavailable Non morbid obesity (E66.9) Active confirmed Problem Information temporarily unavailable Arthritis of left knee (M17.12) Active confirmed Problem Information temporarily unavailable Other urinary incontinence (N39.498) Active confirmed Problem Information temporarily unavailable Seasonal allergic rhinitis, unspecified trigger (J30.2) Active confirmed Problem Information temporarily unavailable Cervical myelopathy (G95.9) Active confirmed Problem Information temporarily unavailable 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 Problem Information temporarily unavailable 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) Active confirmed Problem Information temporarily unavailable Gastroesophageal reflux disease, unspecified whether esophagitis present (K21.9) Active confirmed Problem Information temporarily unavailable Stage 3 chronic kidney disease, unspecified whether stage 3a or 3b CKD (N18.30) Active confirmed Problem Information temporarily unavailable Urinary incontinence in female (R32) Active confirmed Problem Information temporarily unavailable Rectocele, female (N81.6) Active confirmed Vital Signs Heart Rate 107 /min 11/13/2024 Blood pressure diastolic 70 mm Hg 11/13/2024 Height 65 in 11/13/2024 Blood pressure systolic 132 mm Hg 11/13/2024 Weight 204.4 lbs 11/13/2024 BMI 34.01 kg/m2 11/13/2024 Encounters Encounter Location Date Provider Diagnosis [facility] [address] [place] [id number] 12/08/2023 [place] Acute cough R05.1 ; Urinary tract infection without hematuria, site unspecified N39.0 ; Heartburn R12 ; Colon cancer screening Z12.11 and Hx of colonic polyps Z86.010 [facility] [address] [place] [id number] 01/02/2024 [facility] [place] Pyuria R82.81 and Frequency of urination R35.0 [facility] [address] [place], [place] [id number] 2024 [facility] [place] [facility] [address] [place] [id number] 03/10/2024 [facility] [place] Urinary tract infect ion without hematuria, site unspecified N39.0 [facility] [address] [place] [id number] 03/16/2024 [facility] [place] Acute UTI N39.0 and Exposure to the flu Z20.828 [facility] [address] [facility] [address] [place], [place] [id number] 03/23/2024 [facility] [place] Recurrent UTI N39.0 and Urge incontinence N39.41 [facility] [address] [place], [place] [id number] 05/18/2024 [facility] [place] Urinary tract infect ion, site not specified N39.0 ; Unspecified Escherichia coli [E. coli] as the cause of diseases classified elsewhere B96.20 ; Neurogenic bladder N31.9 and Acute deep vein thrombosis (DVT) of left peroneal vein I82.452 [facility] [address] [facility] [address] [place], [place] [id number] 05/28/2024 Jensen [place] Chronic UTI N39.0 an d Open wound of right lower extremity, initial encounter S81.801A [facility] [address] [place], [place] [id number] 06/11/2024 Maryanne Malik UTI (lower urinary t ract infection) N39.0 [facility] [address] [facility] [address] [place] [id number] 06/15/2024 Jensen [place] Cystitis, unspecifie d without hematuria N30.90 and Klebsiella pneumoniae [K. pneumoniae] as the cause of diseases classified elsewhere B96.1 [facility] [address] [facility] [address] [place], [place] [id number] 07/10/2024 Jensen [place] Acute cystitis witho ut hematuria N30.00 ; Gastroesophageal reflux disease, unspecified whether esophagitis present K21.9 and BMI 34.0-34.9,adult Z68.34 [facility] [address] [facility] [address] [place] [id number] 07/16/2024 Jensen [place] Chronic UTI N39.0 [facility] [address] [facility] [address] [place] [id number] 07/18/2024 Jensen [place] Chronic UTI N39.0 ; Urinary retention R33.9 ; Urinary incontinence in female R32 ; Bladder spasms N32.89 ; Dermatopolymyositis M33.90 and BMI 34.0-34.9,adult Z68.34 [facility] [address] [place], [place] [id number] 08/24/2024 Jensen [place] Pelvic pain R10.2 ; Chronic UTI N39.0 and Cook catheter in place Z92.89 [facility] [address] [place], [place] [id number] 10/17/2024 Jensen [place] Chronic UTI N39.0 ; Pain in left knee M25.562 and Non morbid obesity E66.9 [facility] [address] [place], [place] [id number] 11/05/2024 Jensen [place] Chronic UTI N39.0 [facility] [address] [place], [place] [id number] 11/13/2024 Jensen [place] Chronic UTI N39.0 ; Urinary retention R33.9 and Rectocele, female N81.6 [facility] [address] [place], [place] [id number] 01/11/2024 [facility] [place] [facility] [address] [place] [id number] 01/18/2024 [facility] [place] [facility] [address] [place], [place] [id number] 02/24/2024 Jensen [place] Neuropathy G62.9 [facility] [address] [place] [id number] 03/13/2024 Jensen [place] [facility] [address] [place] [id number] 03/19/2024 [place] [facility] [address] [place] [id number] 06/11/2024 [place] [facility] [address] [place] [id number] 07/16/2024 [place] [facility] [address] [place] [id number] 07/23/2024 [place] [facility] [address] [place] [id number] 08/28/2024 Jensen [place] Chronic UTI N39.0 [facility] [address] [place] [id number] 09/03/2024 Jensen [place] Neuropathy G62.9 [facility] [address] [place] [id number] 09/03/2024 Jensen [place] Screening for breast cancer Z12.39 and Screening for osteoporosis Z13.820 [facility] [address] [place], [place] [id number] 09/07/2024 Jensen [place] Urinary retention R3 3.9 ; Other urinary incontinence N39.498 and Chronic UTI N39.0 [facility] [address] [place] [id number] 10/19/2024 [place] [facility] [address] [place] [id number] 10/23/2024 [place] [facility] [address] [place] [id number] 10/24/2024 [place] [facility] [address] [place], [place] [id number] 11/16/2024 [facility] [place] Acute UTI N39.0 Assessments Encounter Date Diagnosis [...] - N39.0) Patient to follow up with [facility] urology next week 08/24/2024 Pelvic pain (ICD-10 [...] 09/03/2024 colonoscopy 12/08/2023 H-CBC 05/18/2024 H-BMP 05/18/2024 H-BMP 11/17/2024 Insurance Providers Payer Name Payer Address Payer Phone Subscriber Number Group Number Insured Name Patient Relationship to Insured Coverage Start Date Coverage End Date MEDICARE PART B [address] [address] [place] [id number] [phone] [id number] Kelli Scott Self - patient is the insured [employer] [address] [address] [place] [address] [id number] Kelli Scott Self - patient is the [...]
--- OUTSIDE RECORDS SUMMARY | 2024-11-18 12:56 | XMS_ITS | Encounter Summary ---
Author Organization [employer] ([place], [place], [place], [place]) Address [address] [place] [address] Care Team Providers Care Hand Cell Tuber Name Role Phone Unavailable Primary Care Provider Unavailabl e Encounter Details Date Type Department Care Team (Late st Contact Info) Description 02/05/2019 Transcribed Document [facility] [place] [address] [place] [address] ProviderYusuf MD [facility] [place] [address] Social History Tobacco Use Types [...] - Historical ProviderMD - 02/05/2019 5:00 PM SENIOR ELECTRICAL PROJECT MANAGER Chart Check - Review Order [...]
--- OUTSIDE RECORDS SUMMARY | 2024-11-18 12:56 | XMS_ITS | Encounter Summary ---
Author Organization [employer] ([place], [place], [place], [place]) Address [address] [place] [address] Care Team Providers Care Matrix Plater Name Role Phone Unavailable Primary Care Provider Unavailabl e Encounter Details Date Type Department Care Team (Late st Contact Info) Description 02/08/2019 Transcribed Document [facility] [place] [facility] [address] ProviderYusuf [place] [address] Social History Tobacco Use Types [...] - Historical ProviderMD - 02/08/2019 9:14 AM AIR BRAKE RIGGER On Going Discharge Planning Entered On: 02/08/2019 9:16 EST Performed On: 02/08/2019 9:14 EST by ALECIA GOMEZ RN-Equal Opportunity AssistantNut And Bolt Assembler Progress Note Discharge Arrangements : Patient [...] : Clinical Condition of Patient ALECIA GOMEZ RN-Equal Opportunity Assistant - 02/08/2019 9:14 EST Narrative Progress Note [...] to follow for d/c needs. ALECIA GOMEZ, RN-Equal Opportunity Assistant - 02/07/19 09:05:36 ALECIA GOMEZ RN-Equal Opportunity Assistant - 02/08/2019 9:14 EST Electronically signed by Lillian [facility] Conversion Tube Builder Cerner at 07/07/2022 9:59 PM CDT documented in this encounter Plan of Treatment Not on file documented as of this encounter Visit Diagnoses Not on filedocumented in this encounter
--- OUTSIDE RECORDS SUMMARY | 2024-11-18 12:56 | XMS_ITS | Encounter Summary ---
Author Organization [employer] ([place], [place], [place], [place]) Address [address] [place] [address] Care Team Providers Care [employer] Hat Open Stack Administrator Name Role Phone Unavailable Primary Care Provider Unavailabl e Encounter Details Date Type Department Care Team (Late st Contact Info) Description 02/07/2019 Transcribed Document [facility] Radiology [address] [place] [address] Anne Peters MD [address] [place] [address] [place] [id number] Social History Tobacco Use Types Packs/Day Years [...] discharge Referring physician Dr. Johan Sue neurology [facility] Chief complaint bilateral upper and [...] At risk for sleep apnea / IMO [id number] / Confirmed, Active Problems (3) At risk [...] gallop, S1+ S2 No S3 or S4 [place].. Gastrointestinal: Soft, Non-tender, Non-distended, Normal bowel sounds. [...] (NOV ) Radiology Results (Last 48 hours) [id number] -- 02/05/2019 10:21 MRI Spine Cervical WO [...] cord from the cervicomedullary junction to the C4-P8owoaz. There is mild enhancement of the cord. [...] broad-based posterior disc bulging at C4-C5. At C6-G3rblzg is a central to left paracentral disc [...] FLUOROSCOPYHISTORY: Transverse myelitis.ATTENDING PHYSICIAN: Baljit Gee M.D.PHYSICIAN MEDICAL EDUCATOR: JIMBO Luque-CPROCEDURE: After informed consent was obtained [...]
--- OUTSIDE RECORDS SUMMARY | 2024-11-18 12:56 | XMS_ITS | Encounter Summary ---
Author Organization [employer] ([place], [place], [place], [place]) Address [address] [place] [address] Care Team Providers Care Retail Sales Vitamin Consultant Name Role Phone Unavailable Primary Care Provider Unavailabl e Encounter Details Date Type Department Care Team (Late st Contact Info) Description 02/07/2019 Transcribed Document [facility] [place] Medicine Counts include 234 beds at the [facility] [place] [address] ProviderYusuf MD [address] [place] [address] Social History Tobacco Use Types [...] - Historical ProviderMD - 02/07/2019 12:08 PM LIQUOR ESTABLISHMENT MANAGER Patient: FRANKY SCOTT Age: 74 Years [...]
--- OUTSIDE RECORDS SUMMARY | 2024-11-18 12:56 | XMS_ITS | Encounter Summary ---
Author Organization [employer] ([place], [place], [place], [place]) Address [address] [place] [address] Care Team Providers Care Licensing Analyst Name Role Phone Unavailable Primary Care Provider Unavailabl e Encounter Details Date Type Department Care Team (Late st Contact Info) Description 02/08/2019 Transcribed Document [facility] [place] [address] [place] [address] ProviderYusuf MD [facility] [address] Social History Tobacco Use Types [...] - Historical ProviderMD - 02/08/2019 12:58 AM PRINTED CIRCUIT BOARDS ROUTER Event Note Entered On: 02/08/2019 1:00 EST [...]
--- OUTSIDE RECORDS SUMMARY | 2024-11-18 12:56 | XMS_ITS | Encounter Summary ---
Author Organization [employer] ([place], [place], [place], [place]) Address [address] [place] [address] Care Team Providers Care Maintenance Electrician Name Role Phone Unavailable Primary Care Provider Unavailabl e Encounter Details Date Type Department Care Team (Late st Contact Info) Description 02/05/2019 Transcribed Document [facility] [place] [address] ProviderYusuf [place] [address] Social History Tobacco Use Types [...] - Historical ProviderMD - 02/05/2019 10:39 AM PATIENT CARE PROVIDER Consult Phone Call Documentation Entered On: 02/05/2019 [...]
--- OUTSIDE RECORDS SUMMARY | 2024-11-18 12:56 | XMS_ITS | Encounter Summary ---
Author Organization [employer] ([place], [place], [place], [place]) Address [address] [place] [address] Care Team Providers Care Mainspring Former Name Role Phone Unavailable Primary Care Provider Unavailabl e Encounter Details Date Type Department Care Team (Late st Contact Info) Description 02/05/2019 Transcribed Document [facility] [place] [facility] [place] [address] ProviderYusuf MD [facility] [place] [address] Social History Tobacco Use Types [...] - Historical ProviderMD - 02/05/2019 10:38 AM ALKYLATION OPERATOR Education-(VTE) / (DVT) Entered On: 02/05/2019 [...]
--- OUTSIDE RECORDS SUMMARY | 2024-11-18 12:56 | XMS_ITS | Encounter Summary ---
Author Organization [employer] ([place], [place], [place], [place]) Address [address] [place] [address] Care Team Providers Care Mash Filter Cloth Changer Name Role Phone Unavailable Primary Care Provider Unavailabl e Encounter Details Date Type Department Care Team (Late st Contact Info) Description 02/09/2019 Transcribed Document [facility] [place] [facility] [place] [address] ProviderYusuf MD [place] [address] Social History Tobacco Use Types [...] - Historical ProviderMD - 02/09/2019 5:08 PM SOFTWARE BUSINESS ANALYST Patient: FRANKY SCOTT Age: 74 Years [...] Daily Electronically signed by Onel Snyder Conversion Pretzel Twisting Machine Operator Kalinaner at 07/07/2022 9:48 PM CDT documented in this encounter Plan of Treatment Not on file documented as of this encounter Visit Diagnoses Not on filedocumented in this encounter
--- OUTSIDE RECORDS SUMMARY | 2024-11-18 12:56 | XMS_ITS | Encounter Summary ---
Author Organization [employer] ([place], [place], [place], [place]) Address [address] [place] [address] Care Team Providers Care Bakery Worker Name Role Phone Unavailable Primary Care Provider Unavailabl e Encounter Details Date Type Department Care Team (Late st Contact Info) Description 02/05/2019 Transcribed Document [facility] [place] [facility] [place] [address] ProviderYusuf MD [facility] [place] [address] Social History Tobacco Use Types [...] - Yusuf ProviderMD - 02/05/2019 11:36 AM PRESS CLIPPINGS CUTTER AND PASTER Provider Notification Entered On: 02/06/2019 14:55 EST Performed On: 02/06/2019 11:36 EST by ROLY MEDEIROS RN Provider Notification Provider Notified of Concerns/Results : Change in status ROLY MEDEIROS RN - 02/06/2019 14:55 EST documented in this encounter Plan of Treatment Not on file documented as of this encounter Visit Diagnoses Not on filedocumented in this encounter
--- OUTSIDE RECORDS SUMMARY | 2024-11-18 12:56 | XMS_ITS | Encounter Summary ---
Author Organization [employer] ([place], [place], [place], [place]) Address [address] [place] [address] Care Team Providers Care Engraver Hand Hard Metals Name Role Phone Unavailable Primary Care Provider Unavailabl e Encounter Details Date Type Department Care Team (Late st Contact Info) Description 02/05/2019 Transcribed Document [facility] [place] [facility] Family Medicine [facility] [place] [address] ProviderYusuf MD [facility] [place] [address] Social History Tobacco Use Types [...] - Historical ProviderMD - 02/05/2019 10:38 AM MUSIC ORCHESTRATOR Evaluation, Physical Therapy Entered On: 02/05/2019 14:38 [...] PT for her recent L knee arthoscopy SIAMA CURRY, PT - 02/05/2019 14:32 EST Lower [...] SAIMA CURRY, PT - 02/05/2019 14:32 EST Rn Palliative Care Goals Mobility/Bed Mobility LTG PT Grid Goal [...]
--- OUTSIDE RECORDS SUMMARY | 2024-11-18 12:56 | XMS_ITS | Encounter Summary ---
Author Organization [employer] ([place], [place], [place], [place]) Address [address] [place] [address] Care Team Providers Care Multimedia Production Assistant Name Role Phone Unavailable Primary Care Provider Unavailabl e Encounter Details Date Type Department Care Team (Late st Contact Info) Description 02/05/2019 Transcribed Document [facility] [place] Family Medicine [facility] [address] ProviderYusuf MD [facility] [place] [address] Social History Tobacco Use Types [...] - Historical ProviderMD - 02/05/2019 10:38 AM FOOD DEHYDRATOR OPERATOR Evaluation, Occupational Therapy Entered On: 02/06/2019 15:17 [...] IVANIA BIRD OTR/Leeann 02/06/2019 15:12 EST Hand School Business Manager Test : Bilateral hospice patient care secretary strength WFL IVANIA BIRD OTR/Leeann 02/06/2019 15:12 [...] activities IVANIA BIRD OTR/Leeann 02/06/2019 15:12 EST Doggy Daycare Activities Director Goals, OT Grooming LTG Grid Goal [...]
--- OUTSIDE RECORDS SUMMARY | 2024-11-18 12:56 | XMS_ITS | Encounter Summary ---
Author Organization [employer] ([place], [place], [place], [place]) Address [address] [place] [address] Care Team Providers Care Control Clerk Auditing Name Role Phone Unavailable Primary Care Provider Unavailabl e Encounter Details Date Type Department Care Team (Late st Contact Info) Description 02/05/2019 Transcribed Document [facility] [place] Family Medicine [facility] [place] [address] ProviderYusuf MD [facility] [place] [address] Social History Tobacco Use Types [...] - Historical ProviderMD - 02/05/2019 10:16 AM COMMERCIAL CARPENTER Admission History, Adult Entered On: 02/05/2019 11:36 [...] From : Patient, Spouse Primary Language : [place] Preferred Communication Mode : Verbal Communication Barrier [...] Level : 46 or > High Risk [place] Fall Interventions : Adequate lighting, Assistive devices [...] Source : Measured Height Entry Format : [place] Height, Feet : 5 ft(Converted to: 152 cm, 60 Inch) Height, Inches : 5 Inch(Converted to: 0 ft 5 Inch, 12.70 cm) Clinical Height : 165.1 cm Weight Source : Bed scale Weight Entry Format : [place] Clinical Dosing Weight : 79.09 kg Weight, Pounds : 174 lb Body Surface Area (BSA) : 1.87 m2 Body Mass Index : 29 kg/m2 (HI) [place] Body Weight : 57 kg SAVANNA VARGAS [...] SAVANNA VARGAS RN - 02/05/2019 11:27 EST Echo Suicide Severity Rating Scale (C-SSRS) CSSRS Past [...]
--- OUTSIDE RECORDS SUMMARY | 2024-11-18 12:56 | XMS_ITS | Encounter Summary ---
Author Organization [employer] ([place], [place], [place], [place]) Address [address] [place] [address] Care Team Providers Care Chief Writer Name Role Phone Unavailable Primary Care Provider Unavailabl e Encounter Details Date Type Department Care Team (Late st Contact Info) Description 02/06/2019 Transcribed Document [facility] [place] Family Medicine [facility] [place] [address] ProviderYusuf MD [facility] [place] [address] Social History Tobacco Use Types [...] - Historical ProviderMD - 02/06/2019 9:20 AM CRITICAL CARE NURSE SPECIALIST UM Authorization Entered On: 02/06/2019 9:20 EST Performed On: 02/06/2019 9:20 EST by VALENTINA GOODE Rn-Utilization Review Primary Insurance Authorization Authorization and Policy Numbers : Insurance 1 Health Plan: MEDICARE Policy Number: [id number] Authorization Number: Insurance 2 Health Plan: [employer] Policy Number: [id number] Authorization Number: Insurance Primary Name : MEDICARE Policy Number: [id number] [employer] Policy Number: [id number] Historical Authorization Comments-Primary : No Authorization Comments Found VALENTINA GOODE Rn-Utilization Review - 02/06/2019 9:20 EST Electronically signed by Lillian Cox [place] Conversion Human Factors Advisor Lead Cerner at 07/07/2022 9:58 PM CDT documented in this encounter Plan of Treatment Not on file documented as of this encounter Visit Diagnoses Not on filedocumented in this encounter
--- OUTSIDE RECORDS SUMMARY | 2024-11-18 12:56 | XMS_ITS | Encounter Summary ---
Author Organization [employer] ([place], [place], [place], [place]) Address [address] [place] [address] Care Team Providers Care Commercial Manager Name Role Phone Unavailable Primary Care Provider Unavailabl e Encounter Details Date Type Department Care Team (Late st Contact Info) Description 02/07/2019 Transcribed Document [facility] [place] Family Medicine [address] [place] [address] ProviderYusuf MD [facility] [place] [address] Social History Tobacco Use Types [...] - Historical ProviderMD - 02/07/2019 5:00 PM MANAGER E COMMERCE Chart Check - Review Order Profile Entered [...]
--- OUTSIDE RECORDS SUMMARY | 2024-11-18 12:56 | XMS_ITS | Encounter Summary ---
Author Organization [employer] ([place], [place], [place], [place]) Address [address] [place] [address] Care Team Providers Care Cargo Inspector Name Role Phone Unavailable Primary Care Provider Unavailabl e Encounter Details Date Type Department Care Team (Late st Contact Info) Description 02/08/2019 Transcribed Document [facility] [place] [facility] [place] [address] ProviderYusuf MD [facility] [place] [address] Social History Tobacco Use Types [...] - Historical ProviderMD - 02/08/2019 5:00 AM DYE TUB TENDER Chart Check - Review Order Profile [...]
--- OUTSIDE RECORDS SUMMARY | 2024-11-18 12:56 | XMS_ITS | Encounter Summary ---
Author Organization [employer] ([place], [place], [place], [place]) Address [address] [place] [address] Care Team Providers Care Safety Risk Lead Name Role Phone Unavailable Primary Care Provider Unavailabl e Encounter Details Date Type Department Care Team (Late st Contact Info) Description 02/06/[address] [facility] Radiology [address] [place] [address] Anne Peters MD [address] [place] [address] [place] [id number] Social History Tobacco Use Types Packs/Day Years [...] At risk for sleep apnea / IMO [id number] / Confirmed, Active Problems (3) At risk [...] gallop, S1+ S2 No S3 or S4 [place].. Gastrointestinal: Soft, Non-tender, Non-distended, Normal bowel sounds. [...] (FEB 05) Radiology Results (Last 48 hours) [id number] -- 02/05/2019 10:21 MRI Spine Cervical WO [...] cord from the cervicomedullary junction to the C4-M5oequt. There is mild enhancement of the cord. [...] broad-based posterior disc bulging at C4-C5. At C6-R8xgbye is a central to left paracentral disc [...]
--- OUTSIDE RECORDS SUMMARY | 2024-11-18 12:56 | XMS_ITS | Encounter Summary ---
Author Organization [employer] ([place], [place], [place], [place]) Address [address] [place] [address] Care Team Providers Care Four Corner Former Machine Operator Name Role Phone Unavailable Primary Care Provider Unavailabl e Encounter Details Date Type Department Care Team (Late st Contact Info) Description 02/06/2019 Transcribed Document [facility] Family Medicine [address] [place] [address] ProviderYusuf MD [facility] [place] [address] Social History Tobacco Use Types [...] - Historical ProviderMD - 02/06/2019 5:00 PM MIDWIFE AND BIRTH CENTER OWNER Chart Check - Review Order Profile Entered [...]
--- OUTSIDE RECORDS SUMMARY | 2024-11-18 12:56 | XMS_ITS | Encounter Summary ---
Author Organization [employer] ([place], [place], [place], [place]) Address [address] [place] [address] Care Team Providers Care Supply Coordinator Name Role Phone Unavailable Primary Care Provider Unavailabl e Encounter Details Date Type Department Care Team (Late st Contact Info) Description 02/06/2019 Transcribed Document [facility] [facility] [place] [address] ProviderYusuf MD [facility] [place] [address] Social History Tobacco Use Types [...] - Historical ProviderMD - 02/06/2019 2:00 AM SEO SPECIALIST Delivery Coordinator Details Entered On: 02/06/2019 1:49 EST Performed [...]
--- OUTSIDE RECORDS SUMMARY | 2024-11-18 12:56 | XMS_ITS | Encounter Summary ---
Author Organization [employer] ([place], [place], [place], [place]) Address [address] [place] [address] Care Team Providers Care Office Nurse Practitioner Name Role Phone Unavailable Primary Care Provider Unavailabl e Encounter Details Date Type Department Care Team (Late st Contact Info) Description 02/07/2019 Transcribed Document [facility] Family Medicine [address] [place] [address] ProviderYusuf MD [facility] [place] [address] Social History Tobacco Use Types [...] - Historical ProviderMD - 02/07/2019 7:58 AM ARMAMENT REPAIRER Spiritual Care Short Form Entered On: 02/07/2019 8:22 EST Performed On: 02/07/2019 7:58 EST by JULIO TOBIAS General Information, Spiritual Care Spiritual Care Referred by : Family Reason for Visit : Referral/Consult Ministry Provided to : Patient, Family/Significant other Intervention/Comment/Summary Points : Provided guest tray voucher and spiritual support to patient and . JULIO TOBIAS - 02/07/2019 8:21 EST Electronically signed by Onel Snyder Conversion Armhole Feller Handstitching Machine Cerner at 07/07/2022 9:49 PM CDT documented in this encounter Plan of Treatment Not on file documented as of this encounter Visit Diagnoses Not on filedocumented in this encounter
--- OUTSIDE RECORDS SUMMARY | 2024-11-18 12:57 | XMS_ITS | Encounter Summary ---
Author Organization [employer] ([place], [place], [place], [place]) Address [address] [place] [address] Care Team Providers Care Warehouse Administrative Assistant Name Role Phone Unavailable Primary Care Provider Unavailabl e Encounter Details Date Type Department Care Team (Late st Contact Info) Description 02/05/2019 Transcribed Document [facility] [place] [facility] [place] [address] ProviderYusuf MD [facility] [place] [address] Social History Tobacco Use Types [...] - Yusuf ProviderMD - 02/05/2019 10:39 AM STARCH CRAB Swallow Evaluation Entered On: 02/05/2019 12:20 EST Performed On: 02/05/2019 12:16 EST by KENNA KIM RN CVICU General Information Visit Type, RN CVICU : Initial evaluation KENNA KIM SLP - 02/05/2019 12:16 EST Patient Orders : Consult to Speech Language Pathology for Swallow Eval -111 Start: 02/05/19 10:39:00 EST, Routine, For Swallow Eval and Treat - BASHIR RAYMOND MD-INT Admission Date : Admission Date/Time: 02/05/19 10:21:00 KENNA KIM, ASHER - 02/05/2019 12:21 EST Medical Chart Reviewed, RN CVICU : Yes EKNNA KIM SLP - 02/05/2019 12:16 EST Personal Devices : Personal Devices Glasses Assistive Devices : Assistive Devices No Devices Recorded Active Diagnoses : 02/05/2019 12:00 Disease of spinal cord, unspecified KENNA KIM SLP - 02/05/2019 12:21 EST Therapy Diagnosis, RN CVICU : normal oropharyngeal skills Previous Swallow Precautions : no previous ST in EMR Diet/Intake Prior to Current Admission : reg/thin Diet/Intake During Current Admission : reg/thin Intubation Comment, RN CVICU : n/a KENNA KIM SLP - 02/05/2019 [...] 12:16 EST General Status Patient Received Status, RN CVICU : Long sitting in bed Patient Left Status, RN CVICU : Long sitting in bed KENNA KIM [...] Oral Mechanism for Daily Living : Intact RN CVICU Cough : Strong Facial Appearance: : Symmetrical [...] these records, Dr. Brunson sent her to [facility]. ST is asked to see for [...] - 02/05/2019 12:21 EST Therapy Indication Assessment RN CVICU Indicated : No RN CVICU Not Indicated : At prior level of function KENNA KIM SLP - 02/05/2019 12:21 EST Education Barriers To Learning : None evident Individuals Taught : Patient, Spouse KENNA KIM SLP - 02/05/2019 12:21 EST RN CVICU Education Assessment Grid 1 Aspiration : Verbalizes understanding Diet Recommendation : Verbalizes understanding KENNA KIM SLP - 02/05/2019 12:21 EST [place] RN CVICU Charges Evaluation Swallowing Function : 1 KENNA KIM, RN CVICU - 02/05/2019 12:21 EST Anticipated Discharge Needs, RN CVICU Anticipated Discharge to : Home, independently, Home, with home health Recommend Continued Therapy at Discharge : No KNENA KIM, ASHER - 02/05/2019 12:21 EST documented in this encounter Plan of Treatment Not on file documented as of this encounter Visit Diagnoses Not on filedocumented in this encounter
--- OUTSIDE RECORDS SUMMARY | 2024-11-18 12:57 | XMS_ITS | Encounter Summary ---
Author Organization [employer] ([place], [place], [place], [place]) Address [address] [place] [address] Care Team Providers Care Body Make Up Artist Name Role Phone Unavailable Primary Care Provider Unavailabl e Encounter Details Date Type Department Care Team (Late st Contact Info) Description 02/06/2019 Transcribed Document [facility] [place] Family Medicine [facility] [place] [address] ProviderYusuf MD [place] [address] Social History Tobacco Use Types [...] - Historical ProviderMD - 02/06/2019 3:39 PM SERVICE AGENT Patient: FRANKY SCOTT Age: 74 Years Sex: [...] Meningitis/Encephalitis Panel Myelin Basic Protein, Sendout Pathology Non-Home Demonstration Agent Request RPR Rapid Plasma Reagin Sequential Compression [...] Tab, Oral, Daily Electronically signed by Lillian, [facility] Conversion It Communications Specialist Cerner at 07/07/2022 9:59 PM CDT documented in this encounter Plan of Treatment Not on file documented as of this encounter Visit Diagnoses Not on filedocumented in this encounter
--- OUTSIDE RECORDS SUMMARY | 2024-11-18 12:57 | XMS_ITS | Encounter Summary ---
Author Organization [employer] ([place], [place], [place], [place]) Address [address] [place] [address] Care Team Providers Care Oracle Manager Name Role Phone Unavailable Primary Care Provider Unavailabl e Encounter Details Date Type Department Care Team (Late st Contact Info) Description 02/06/2019 Transcribed Document [facility] [facility] [place] [address] ProviderYusuf MD [facility] [place] [address] Social History Tobacco Use Types [...] Conversion Note - Yusuf ProviderMD - 02/06/2019 3:18 PM DATA PROCESSING CONTROL CLERK Treatment Intervention, OT Entered On: 02/08/2019 13:07 [...] : 02/05/2019 10:21 Co-treated by, OT : clinical trial assistant (PRODUCT SPECIALIST) Personal Devices : Personal Devices Glasses Assistive [...] RD FRENCH COTA - 02/08/2019 12:59 EST Stained Glass Joiner Goals, OT Grooming LTG Grid Goal #1 [...] rehabilitation RD FRENCHMAGDY - 02/08/2019 12:59 EST [place] OT Charges OT Ther Activities Ea 15 Min : 2 ELEANOR FRENCHMAGDY GASCA - 02/08/2019 12:59 EST documented in this encounter Plan of Treatment Not on file documented as of this encounter Visit Diagnoses Not on filedocumented in this encounter
--- OUTSIDE RECORDS SUMMARY | 2024-11-18 12:57 | XMS_ITS | Encounter Summary ---
Author Organization [employer] ([place], [place], [place], [place]) Address [address] [place] [address] Care Team Providers Care Waiter Name Role Phone Unavailable Primary Care Provider Unavailabl e Encounter Details Date Type Department Care Team (Late st Contact Info) Description 02/06/2019 Transcribed Document [facility] [place] Family Medicine [address] [place] [address] ProviderYusuf MD [facility] [place] [address] Social History Tobacco Use Types [...] - Historical ProviderMD - 02/06/2019 5:00 AM INFORMATION TECHNOLOGY ARCHITECT Chart Check - Review Order Profile Entered On: 02/06/2019 4:09 EST Performed On: 02/06/2019 5:00 EST by Aicha Logan, RN Chart Check Powerplans Initiated/Discontinued as Appropriate : Yes All Active Orders Reviewed : Yes Aicha Logan RN - 02/06/2019 4:09 EST Electronically signed by Lillian [facility] Conversion Tarp Repairer Cerner at 07/07/2022 9:53 PM CDT documented in this encounter Plan of Treatment Not on file documented as of this encounter Visit Diagnoses Not on filedocumented in this encounter
--- OUTSIDE RECORDS SUMMARY | 2024-11-18 12:57 | XMS_ITS | Encounter Summary ---
Author Organization [employer] ([place], [place], [place], [place]) Address [address] [place] [address] Care Team Providers Care Bay Stocker Name Role Phone Unavailable Primary Care Provider Unavailabl e Encounter Details Date Type Department Care Team (Late st Contact Info) Description 02/06/2019 Transcribed Document [facility] Radiology 1 [place] [address] Anne Peters MD [address] [place] [address] [address] [place] [id number] Social History Tobacco Use Types Packs/Day Years [...] discharge Referring physician Dr. Johan Sue neurology [facility] Chief complaint bilateral upper and [...] At risk for sleep apnea / IMO [id number] / Confirmed, Active Problems (3) At risk [...] gallop, S1+ S2 No S3 or S4 [place].. Gastrointestinal: Soft, Non-tender, Non-distended, Normal bowel sounds. [...] (FEB 05) Radiology Results (Last 48 hours) [id number] -- 02/05/2019 10:21 MRI Spine Cervical WO [...] cord from the cervicomedullary junction to the C4-[place]. There is mild enhancement of the cord. [...] broad-based posterior disc bulging at C4-C5. At C6-Z6anxpz is a central to left paracentral disc [...]
--- OUTSIDE RECORDS SUMMARY | 2024-11-18 12:57 | XMS_ITS | Encounter Summary ---
Author Organization [employer] ([place], [place], [place], [place]) Address [address] [place] [address] Care Team Providers Care Research Professor Of Biostatistics Name Role Phone Unavailable Primary Care Provider Unavailabl e Encounter Details Date Type Department Care Team (Late st Contact Info) Description 02/06/2019 Transcribed Document [facility] [place] [facility] [place] [facility] [place] [address] ProviderYusuf MD [facility] [place] [address] Social History Tobacco Use Types [...] - Historical ProviderMD - 02/06/2019 2:40 PM FORENSIC PSYCHIATRIST Patient: FRANKY SCOTT Age: 74 years Sex: [...]
--- OUTSIDE RECORDS SUMMARY | 2024-11-18 12:57 | XMS_ITS | Encounter Summary ---
Author Organization [employer] ([place], [place], [place], [place]) Address [address] [place] [address] Care Team Providers Care Assisted Living Associate Name Role Phone Unavailable Primary Care Provider Unavailabl e Encounter Details Date Type Department Care Team (Late st Contact Info) Description 02/06/2019 Transcribed Document [facility] [place] Medicine [facility] [place] [address] ProviderYusuf [place] [address] Social History Tobacco Use Types [...] - Yusuf ProviderMD - 02/06/2019 11:41 AM CHURCH SECRETARY Initial Discharge Planning Entered On: 02/06/2019 11:49 EST Performed On: 02/06/2019 11:41 EST by DELORIS MCDONALD, Currency Examiner Initial Assessment I Previously Documented Living Environment [...] Patient's Home Caregiver Medical Durable Power of Manager Drilling Name : no Legal Guardian : No Is Guardianship Needed : No DELORIS MCDONALD Currency Examiner - 02/06/2019 11:41 EST Initial Assessment II Sensory and Motor Deficits : Weakness Current Home Treatments and Equipment : Cane, Walker DELORIS MCDONALD Currency Examiner - 02/06/2019 11:41 EST Discharge Needs I [...] Home Health, Short term rehabilitation DELORIS MCDONALD Currency Examiner - 02/06/2019 11:41 EST Narrative Note Narrative Note : Talked w/ this 74 yr old W F sent as a direct admit from Dr Boyer's neurology office. Pt has tingling and weakess of both upper and lower extremities as well as inability to control bowel or bladder. Brain imaging revealed mye;opathy and pt admitted for further workup. [facility]. Just recently started [...] RRS is low @ 38. DELORIS MCDONALD Currency Examiner - 02/06/2019 11:41 EST documented in this encounter Plan of Treatment Not on file documented as of this encounter Visit Diagnoses Not on filedocumented in this encounter
[2024-11-18] MEDS: ERTAPENEM SODIUM 1 GM VIAL IM (13:28)
== END 2024-11-18 13:30 | disposition home or self-care (01) ==
LOC: INF 12:51
PROVIDERS: PCP Family Medicine; Visit Provider Family Medicine
DX: Z01.89 Encounter for other specified special examinations (principal)
CPT/HCPCS: 96372; J1335

== ENCOUNTER 2024-11-19 09:45 | Outpatient (CLI) | payer MEDICARE, OTHER, SELFPAY ==
--- OUTSIDE RECORDS SUMMARY | 2024-10-17 06:15 | XMS_ITS ---
Author Organization [facility] Address [address] [place] [id number] Care Team Providers Care Manager In Training Name Role Phone Reece Santiagoian Primary Care Provider [phone] Allergies Allergen (clinical drug ingredient) Drug/Non Drug [...] morbid obesity (E66.9) Active confirmed Vital Signs Blood pressure systolic 122 mm Hg 10/18/19 25 Blood pressure diastolic 76 mm Hg 025 Heart Rate 88 /min 10/17/2024 Height 65 in 10/17/2024 Weight 207.8 lbs 10/17/2024 BMI 34.58 kg/m2 10/17/2024 Encounters Encounter Location Date Provider Diagnosis [facility] [address] [place], [place] [phone] 10/17/2024 Jensen Santiago Chronic UTI N39.0 ; [...] * Lan DEWITTOB: 7 (79 yo F)Acc No.[id number]:10/17/2024 Progress Notes Patient: Kelli THOMAS Provider: Kacie Santiago M.D. :1945 A ge:79 Y S ex:Female Date:10/17/2024 Address:[address] [place] [address] KHOI JOSE, [id number] Subjective: * Chief Complaints: * 1 . [...] G 2211 Complex e/[place], [address] Urinalysis, no micro, 1036F TOBACCO NON- USER, G8783 BP SCR PRFRM RCMDD DEFIND SCR INTVL, G8752 MOST RECENT SYSTOLIC BP < 140MM HG, G8754 MOST RECENT DIASTOLIC BP < 90MM HG * Follow Up: v ia phone to report test results * Images: Billing Information: * Visit Code: 00756 Office Visit, Est Pt., Level 3. * Procedure Codes: G2211 Complex e/[place]. [address] Urinalysis, no micro. 1036F TOBACCO NON-USER. G8783 BP SCR PRFRM RCMDD DEFIND SCR INTVL. G8752 MOST RECENT SYSTOLIC BP < 140MM HG. G8754 MOST RECENT DIASTOLIC BP < 90MM HG. * Electronic signature of Valencia Santiago MD on 11/19/2024 at 09:55 AM EDT Sign off status: Pending * Provider: Kacie Santiago M.D. Date: 0 10/17/2024 Generated for Drew reza/Shanelle/Berlinsmitting on: 0 11/19/2024 09:55 AM EDT History and Physical Notes * [...]
--- OUTSIDE RECORDS SUMMARY | 2024-11-05 10:45 | XMS_ITS ---
Author Organization [facility] Address [address] [place] [phone] Care Team Providers Care Dispatcher Chief Oil Name Role Phone Jensen Santiago Primary Care Provider [phone] Allergies Allergen (clinical drug ingredient) Drug/Non Drug [...] Interpretation:sensitive Performing Lab: Notes/Report: Test performed by [employer] [address] [place] [address] , [address], [place] [address] Danilo Duran MD, Sustainability Specialist CLIA: [id number] Specimen Source Urine - Cath Culture, Urine See Below See Microbiol ogy Report Escherichia coli ESBL 50,000-100,000 CFU /ml Escherichia coli ESBL This isolate is a confirmed ESBL (Extended Spectrum Beta-Lactamase) promotions executive producer and should be considered clinically resistant [...] Duration: 30 days 10/23/2024 Active Vital Signs Blood pressure systolic 132 mm Hg 11/06/19 25 Blood pressure diastolic 80 mm Hg 025 Heart Rate 97 /min 11/05/2024 Height 65 in 11/05/2024 Weight 208.4 lbs 11/05/2024 BMI 34.68 kg/m2 11/05/2024 Encounters Encounter Location Date Provider Diagnosis [facility] [address] [place] [phone] 11/05/2024 Jensen Santiago Chronic UTI N 39.0 [...] * Jaci SCOTTenDOB: 7 (79 yo F)Acc No.[id number]:11/05/2024 Progress Notes Patient: Kelli THOMAS Provider: Kacie Santiago M.D. :1945 A ge:79 Y S ex:Female Date:11/05/2024 Address:[facility] [place], [id number] Subjective: * Chief Complaints: * * HPI: [...] G 2211 Complex e/[place], [address] Urinalysis, no micro, 1036F TOBACCO NON- USER, G8783 BP SCR PRFRM RCMDD DEFIND SCR INTVL, G8752 MOST RECENT SYSTOLIC BP < 140MM HG, G8754 MOST RECENT DIASTOLIC BP < 90MM HG * Follow Up: v ia phone to report test results * Images: Billing Information: * Visit Code: 11877 Office Visit, Est Pt., Level 3. * Procedure Codes: G2211 Complex e/[place]. [address] Urinalysis, no micro. 1036F TOBACCO NON-USER. G8783 BP SCR PRFRM RCMDD DEFIND SCR INTVL. G8752 MOST RECENT SYSTOLIC BP < 140MM HG. G8754 MOST RECENT DIASTOLIC BP < 90MM HG. * Electronic signature of Valencia Santiago MD on 11/19/2024 at 09:54 AM EDT Sign off status: Pending * Provider: Kacie Santiago M.D. Date: 0 11/05/2024 Generated for Drew reza/Shanelle/Chetitting on: 0 11/19/2024 09:54 AM EDT History and Physical Notes * [...]
--- OUTSIDE RECORDS SUMMARY | 2024-11-13 06:30 | XMS_ITS ---
Author Organization [facility] Address [address] [facility] [address] [place] [id number] Care Team Providers Care Materials Recycler Name Role Phone Jensen Santiago Primary Care Provider [phone] Allergies Allergen (clinical drug ingredient) Drug/Non [...] Interpretation: Performing Lab: Notes/Report: Test performed by [employer], [employer] [address] [place] [address] [place] [address] Danilo Duran MD, Emanations Analysis Technician [facility]: [id number] Specimen Source Urine - Cath Culture, Urine [...] Active Pantoprazole Sodium 40 MG 1 tablet 1/ t o 1 hour before morning meal [...] Problem Status W/U Status Risk Notes Problem Rectocele, female (N81.6) Active confirmed Vital Signs Blood pressure systolic 132 mm Hg 11/14/19 25 Blood pressure diastolic 70 mm Hg 025 Heart Rate 107 /min 11/13/2024 Height 65 in 11/13/2024 Weight 204.4 lbs 11/13/2024 BMI 34.01 kg/m2 11/13/2024 Encounters Encounter Location Date Provider Diagnosis [facility] [address] [facility] [address] [place], [place] [phone] 11/13/2024 Jensen Santiago Chronic UTI N39.0 ; [...] * Jaci SCOTTenDOB: 7 (79 yo F)Acc No.[id number]:11/13/2024 Progress Notes Patient: Kelli THOMAS Provider: Kacie Santiago M.D. :1945 A ge:79 Y S ex:Female Date:11/13/2024 Address:[address] [place] [address] [place], [id number] Subjective: * Chief Complaints: * 1 . [...] G 2211 Complex e/[place], [address] Urinalysis, no micro, [address]17[address] CAPILLARY BLOOD DRAW, 95843 CBC WITH AUTO DIFF * Follow Up: v ia phone to report test results * Images: Billing Information: * Visit Code: 48835 Office Visit, Est Pt., Level 4. * Procedure Codes: G2211 Complex e/[place]. [address] Urinalysis, no micro. 10407 CAPILLARY BLOOD DRAW. 58079 CBC WITH AUTO DIFF. * Electronic signature of Valencia Santiago MD on 11/19/2024 at 09:53 AM EDT Sign off status: Pending * Provider: Kacie Santiago M.D. Date: 0 11/13/2024 Generated for Drew reza/Shanelle/Chetitting on: 0 11/19/2024 09:53 AM EDT History and Physical Notes * [...]
--- OUTSIDE RECORDS SUMMARY | 2024-11-16 05:03 | XMS_ITS ---
Author Organization Ade Address [facility] [address] [place] [id number] Care Team Providers Care Button Sewer Hand Name Role Phone Jensen Santiago Primary Care Provider REASON FOR VISIT abnormal urine cx Medications Medication SIG (Take, Route, Fr equency, Duration) Notes Start Date End Date Status Ertapenem Sodium 1 GM 1 gram IM Injectio n daily; Duration: 5 days 11/16/2024 Active Encounters Encounter Location Date Provider Diagnosis Ade [facility] [address] [place] [id number] 11/16/2024 Jensen Santiago Acute UTI N39.0 Assessments Encounter Date Diagnosis (ICD Code) Assessment Notes Treatment Notes Treatment Clinical Notes Section Notes 11/16/2024 Acute UTI (ICD-10 - N39.0) Plan Of Treatment Medication Medication Name Sig Start Date Stop Date Notes Ertapenem Sodium 1 GM 1 gram IM Injectio n daily; Duration: 5 days 11/16/2024 Progress Notes * Lan DEWITTOB: 7 (79 yo F)Acc No.[id number]:11/16/2024 Patient: Kelli THOMAS :1945 A ge:79 Y S ex:Female Address:[address] [facility] [place], [address] * Refills Start Ertapenem Sodium Solution Reconstituted, [...] Date: Generated for Drew reza/Shanelle/Berlinsmitting on: 0 11/19/2024 09:57 AM EDT
--- OUTSIDE RECORDS SUMMARY | 2024-11-19 09:54 | XMS_ITS | Encounter Summary ---
Author Organization [employer] ([place], [place], [place], [place]) Address [address] [place] [address] Care Team Providers Care Biblical Languages Professor Name Role Phone Unavailable Primary Care Provider Unavailabl e Encounter Details Date Type Department Care Team (Late st Contact Info) Description 02/12/2019 Transcribed Document [facility] [place] [address] [place] [address] ProviderYusuf MD [facility] [place] [address] Social History Tobacco Use [...] - Historical ProviderMD - 02/12/2019 5:00 PM RN CHILD Chart Check - Review Order Profile Entered On: 02/12/2019 17:07 EST Performed On: 02/12/2019 17:00 EST by Sandra Mancilla RN Chart Check Powerplans Initiated/Discontinued as Appropriate : Yes All Active Orders Reviewed : Yes Sandra Mancilla RN - 02/12/2019 17:07 EST Electronically signed by Onel Snyder Conversion Celebrity Chef Entrepreneur Media Personality Cerner at 07/07/2022 10:00 PM CDT documented in this encounter Plan of Treatment Not on file documented as of this encounter Visit Diagnoses Not on filedocumented in this encounter
--- OUTSIDE RECORDS SUMMARY | 2024-11-19 09:54 | XMS_ITS | Encounter Summary ---
Author Organization [employer] ([place], [place], [place], [place]) Address [address] [place] [address] Care Team Providers Care Customer Orders Clerk Name Role Phone Unavailable Primary Care Provider Unavailabl e Encounter Details Date Type Department Care Team (Late st Contact Info) Description 02/13/2019 Transcribed Document [facility] [place] [facility] [place] [address] ProviderYusuf MD [facility] [place] [address] Social History Tobacco Use Types [...] - Historical ProviderMD - 02/13/2019 5:00 PM METAL WINDOW FRAME MAKER Chart Check - Review Order Profile [...]
--- OUTSIDE RECORDS SUMMARY | 2024-11-19 09:54 | XMS_ITS | Encounter Summary ---
Author Organization [employer] ([place], [place], [place], [place]) Address [address] [place] [address] Care Team Providers Care Construction Specialist Name Role Phone Unavailable Primary Care Provider Unavailabl e Encounter Details Date Type Department Care Team (Late st Contact Info) Description 02/12/2019 Transcribed Document [facility] [address] [email or web address] [address] [place] [address] Fernando Dotson MD [address] [facility] [place] [address] Social History Tobacco Use Types [...] for transverse myelitis. She was admitted to [facility] on 02/05/2019 under the medicine service [...] 5/5 d, 5/5 b, 5/5 t, 5/5 mailing machine assistant rue 5/5 d, 5/5 b, 5/5 t, 5/5 mailing machine assistant lle 4+/5 hf, 4+/5 ke, 4+/5 df, [...] CLOUDY2 (Abnormal) 02/11/2019 22:29 EST Urine Specific [place] 1.020 02/11/2019 22:29 EST Urine pH Dipstick [...]
--- OUTSIDE RECORDS SUMMARY | 2024-11-19 09:54 | XMS_ITS | Encounter Summary ---
Author Organization [employer] ([place], [place], [place], [place]) Address [address] [place] [address] Care Team Providers Care Deicer Finisher Name Role Phone Unavailable Primary Care Provider Unavailabl e Encounter Details Date Type Department Care Team (Late st Contact Info) Description 02/13/2019 Transcribed Document [facility] [place] [facility] [place] [address] ProviderYusuf MD [facility] [place] [address] Social History Tobacco Use Types [...] - Historical ProviderMD - 02/13/2019 5:04 PM DRAFTER PATENT Patient: FRANKY SCOTT Age: 74 Years Sex: [...] 1 Tab, Oral, Daily Electronically signed by [facility], [facility] Conversion Anvil Seating Press Operator Cerner at 07/07/2022 9:59 PM CDT documented in this encounter Plan of Treatment Not on file documented as of this encounter Visit Diagnoses Not on filedocumented in this encounter
--- OUTSIDE RECORDS SUMMARY | 2024-11-19 09:54 | XMS_ITS | Encounter Summary ---
Author Organization [employer] ([place], [place], [place], [place]) Address [address] [place] [address] Care Team Providers Care Park Landscape Architect Name Role Phone Unavailable Primary Care Provider Unavailabl e Encounter Details Date Type Department Care Team (Late st Contact Info) Description 02/12/2019 Transcribed Document [facility] [place] [address] [place] [address] ProviderYusuf MD [facility] [place] [address] Social History Tobacco Use Types [...] - Historical ProviderMD - 02/12/2019 2:00 AM SUPERVISOR SHEET MANUFACTURING Geriatric Physician Details Entered On: 02/12/2019 4:19 EST Performed [...]
--- OUTSIDE RECORDS SUMMARY | 2024-11-19 09:54 | XMS_ITS | Encounter Summary ---
Author Organization [employer] ([place], [place], [place], [place]) Address [address] [place] [address] Care Team Providers Care Regulatory Process Manager Name Role Phone Unavailable Primary Care Provider Unavailabl e Encounter Details Date Type Department Care Team (Late st Contact Info) Description 02/12/2019 Transcribed Document [facility] Radiology 1 [place] [address] Anne Peters MD [address] [place] [address] [address] [id number] Social History Tobacco Use Types Packs/Day Years [...] 02/05/[address] Johan Sue neurology [facility] Chief complaint bilateral upper and [...] At risk for sleep apnea / IMO [id number] / Confirmed, Active Problems (3) At risk [...] gallop, S1+ S2 No S3 or S4 [place].. Gastrointestinal: Soft, Non-tender, Non-distended, Normal bowel sounds. [...]
--- OUTSIDE RECORDS SUMMARY | 2024-11-19 09:54 | XMS_ITS | Encounter Summary ---
Author Organization [employer] ([place], [place], [place], [place]) Address [address] [place] [address] Care Team Providers Care Sawmill Supervisor Name Role Phone Unavailable Primary Care Provider Unavailabl e Encounter Details Date Type Department Care Team (Late st Contact Info) Description 02/13/2019 Transcribed Document [facility] Radiology 1 [place] [address] Zack Jha MD [address] [place] [address] [address] [place] [id number] Social History Tobacco Use Types Packs/Day Years [...] physician Dr. Johan Sue neurology [facility] Chief complaint bilateral upper and [...] gallop, S1+ S2 No S3 or S4 [place].. Gastrointestinal: Soft, Non-tender, Non-distended, Normal bowel sounds. [...] complaint to look for a facility in [place], close to their home. documented in this encounter Plan of Treatment Not on file documented as of this encounter Visit Diagnoses Not on filedocumented in this encounter
--- OUTSIDE RECORDS SUMMARY | 2024-11-19 09:54 | XMS_ITS | Encounter Summary ---
Author Organization [employer] ([place], [place], [place], [place]) Address [address] [place] [address] Care Team Providers Care Manager Web Name Role Phone Unavailable Primary Care Provider Unavailabl e Encounter Details Date Type Department Care Team (Late st Contact Info) Description 02/14/2019 Transcribed Document [facility] [place] [facility] [place] [address] ProviderYusuf MD [facility] [place] [address] Social History Tobacco Use Types [...] - Historical ProviderMD - 02/14/2019 2:46 PM PRODUCT CONTROLLER On Going Discharge Planning Entered On: 02/14/2019 14:52 EST Performed On: 02/14/2019 14:46 EST by Neva Cotto RN Care Management Progress Note Designation of Choice Signed : Yes (Comment: Patient given a list of providers for STR with associated STARS rating. Patient selected [facility]. [Neva Cotto RN - 02/14/2019 15:08 [...] abdomen and pelvis with/out contrast completed. DCP: [facility] spinal cord unit tomorrow. will transport. IM and Choice signed. Historical Progress Note : Patient chose [facility] for STR. CM notified that patient has been approved for admission. Dr. Bales in to speak with patient, family and CM. Will order diagnostic scand for tomorrw and plan on admission to [facility] on , 02/15. Neva Cotto RN [...] prefer STR. Patient's first choice [facility] be [facility] and second choice is [facility]. Referrals sent through [facility]. CM will continue to follow. Neva Cotto RN - 02/13/19 09:37:24 CM reviewed chart. Neuro consult and following, MRI Cervical Thor. and Lumbar Spine. Discussed DCP with pt including HH vs Rehab. CM Will continue to follow for d/c needs. ALECIA GOMEZ, RN-Law Firm Administrator - 02/09/19 14:52:38 CM reviewed chart. Cm [...] to follow for d/c needs. ALECIA GOMEZ, RN-Law Firm Administrator - 02/08/19 09:16:23 CM reviewed chart. RRS 38. Cm to room to met pt. Pt spouse in room. spouse stated that pt is off floor for Xray. Spouse stated that DCP is to discharge home with family. Possible hh if a need. CM will continue to follow for d/c needs. ALECIA GOMEZ, JONATAN-Law Firm Administrator - 02/07/19 09:05:36 Neva Cotto RN - 02/14/2019 15:08 EST Electronically signed by Lillian [facility] Conversion Abrasive Mixer Cerner at 07/07/2022 9:52 PM CDT documented in this encounter Plan of Treatment Not on file documented as of this encounter Visit Diagnoses Not on filedocumented in this encounter
--- OUTSIDE RECORDS SUMMARY | 2024-11-19 09:54 | XMS_ITS | Encounter Summary ---
Author Organization [employer] ([place], [place], [place], [place]) Address [address] [place] [address] Care Team Providers Care Rn First Assist Name Role Phone Unavailable Primary Care Provider Unavailabl e Encounter Details Date Type Department Care Team (Late st Contact Info) Description 02/13/2019 Transcribed Document [facility] [place] [address] ProviderYusuf [place] [address] Social History Tobacco Use Types [...] - Yusuf ProviderMD - 02/13/2019 9:25 AM UNDERCOLLAR MAKER On Going Discharge Planning Entered On: 02/13/2019 [...] prefer STR. Patient's first choice would be [facility] in [place] and second choice is [facility]. Referrals sent through [facility]. CM will continue to follow. Historical Progress Note : CM reviewed chart. Neuro consult and following, MRI Cervical Thor. and Lumbar Spine. Discussed DCP with pt including HH vs Rehab. CM Will continue to follow for d/c needs. ALECIA GOMEZ RN-School Office Assistant - 02/09/19 14:52:38 CM reviewed chart. Cm [...] to follow for d/c needs. ALECIA GOMEZ RN-School Office Assistant - 02/08/19 09:16:23 CM reviewed chart. RRS 38. Cm to room to met pt. Pt spouse in room. spouse stated that pt is off floor for Xray. Spouse stated that DCP is to discharge home with family. Possible hh if a need. CM will continue to follow for d/c needs. ALECIA GOMEZ RN-School Office Assistant - 02/07/19 09:05:36 Neva Cotto RN - 02/13/2019 9:25 EST Electronically signed by Lillian [facility] Conversion Rabies Inspector Cerner at 07/07/2022 10:01 PM CDT documented in this encounter Plan of Treatment Not on file documented as of this encounter Visit Diagnoses Not on filedocumented in this encounter
--- OUTSIDE RECORDS SUMMARY | 2024-11-19 09:54 | XMS_ITS | Encounter Summary ---
Author Organization [employer] ([place], [place], [place], [place]) Address [address] [place] [address] Care Team Providers Care Warehouse Manager Name Role Phone Unavailable Primary Care Provider Unavailabl e Encounter Details Date Type Department Care Team (Late st Contact Info) Description 02/13/2019 Transcribed Document [facility] [place] [address] [place] [address] ProviderYusuf MD [facility] [place] [address] Social History Tobacco Use Types [...] - Historical ProviderMD - 02/13/2019 5:00 AM CAKE PRESS OPERATOR Chart Check - Review Order Profile Entered On: 02/13/2019 6:10 EST Performed On: 02/13/2019 5:00 EST by JAYA WASHINGTON REGISITERED_NURSE Chart Check Powerplans Initiated/Discontinued as Appropriate : Yes All Active Orders Reviewed : Yes JAYA WASHINGTON REGISITERED_NURSE - 02/13/2019 6:10 EST Electronically signed by Lillian [facility] Conversion Surgical Garment Assembler Cerner at 07/07/2022 9:56 PM CDT documented in this encounter Plan of Treatment Not on file documented as of this encounter Visit Diagnoses Not on filedocumented in this encounter
--- OUTSIDE RECORDS SUMMARY | 2024-11-19 09:54 | XMS_ITS | Encounter Summary ---
Author Organization [employer] ([place], [place], [place], [place]) Address [address] [place] [address] Care Team Providers Care Research Program Internship Name Role Phone Unavailable Primary Care Provider Unavailabl e Encounter Details Date Type Department Care Team (Late st Contact Info) Description 02/12/2019 Transcribed Document [facility] Radiology 1 [place] [address] Claudio Allen MD [facility] [place] [address] Social History Tobacco Use Types [...] few weeks prior to her admission at [facility], she noticed progressive weakness to [...] rate and rhythm. ABDOMEN: Soft and nontender. CARPENTER ROUGH: Demonstrate ability to move both upper and [...] the patient were comfortable with the discussion. /[id number] Christiano Allen MD ROONEY/AQ / ROONEY / MODL /[id number] CC: MD Johan Leone MD Haider Abbas, MD Imran A Khan, MD Electronically signed by [facility], [facility] Conversion Cut Out Operator Cerner at 07/07/2022 9:59 PM CDT documented in this encounter Plan of Treatment Not on file documented as of this encounter Visit Diagnoses Not on filedocumented in this encounter
--- OUTSIDE RECORDS SUMMARY | 2024-11-19 09:54 | XMS_ITS | Encounter Summary ---
Author Organization [employer] ([place], [place], [place], [place]) Address [address] [place] [address] Care Team Providers Care Armhole Presser Name Role Phone Unavailable Primary Care Provider Unavailabl e Encounter Details Date Type Department Care Team (Late st Contact Info) Description 02/13/2019 Transcribed Document [facility] [place] [facility] [place] [address] ProviderYusuf MD [facility] [place] [place] [address] Social History Tobacco Use Types [...] Conversion Note - Yusuf ProviderMD - 02/13/2019 4:17 PM HOGSHEAD ROLLER On Going Discharge Planning Entered On: 02/13/2019 [...] Note Narrative Progress Note : Patient chose [facility] for STR. CM notified that patient has been approved for admission. Dr. Bales in to speak with patient, family and CM. Will order diagnostic scand for tomorrw and plan on admission to [facility] on , 02/15. Historical Progress Note [...] prefer STR. Patient's first choice would be [facility] and second choice is [facility]. Referrals sent through [facility]. CM will continue to follow. Neva Cotto RN - 02/13/19 09:37:24 MICHAELA reviewed chart. Neuro consult and following, MRI Cervical Thor. and Lumbar Spine. Discussed DCP with pt including HH vs Rehab. CM Will continue to follow for d/c needs. ALECIA GOMEZ RN-Asphalt Paving Superintendent - 02/09/19 14:52:38 CM reviewed chart. Cm [...] to follow for d/c needs. ALECIA GOMEZ, JONATAN-Asphalt Paving Superintendent - 02/08/19 09:16:23 CM reviewed chart. RRS 38. Cm to room to met pt. Pt spouse in room. spouse stated that pt is off floor for Xray. Spouse stated that DCP is to discharge home with family. Possible hh if a need. CM will continue to follow for d/c needs. ALECIA GOMEZ RN-Asphalt Paving Superintendent - 02/07/19 09:05:36 Neva Cotto RN - 02/13/2019 16:17 EST Electronically signed by Lillian [facility] Conversion Buttermaker Continuous Churn Cerner at 07/07/2022 9:59 PM CDT documented in this encounter Plan of Treatment Not on file documented as of this encounter Visit Diagnoses Not on filedocumented in this encounter
--- OUTSIDE RECORDS SUMMARY | 2024-11-19 09:54 | XMS_ITS | Encounter Summary ---
Author Organization [employer] ([place], [place], [place], [place]) Address [address] [place] [address] Care Team Providers Care Logistics Lead Name Role Phone Unavailable Primary Care Provider Unavailabl e Encounter Details Date Type Department Care Team (Late st Contact Info) Description 02/13/2019 Transcribed Document [facility] [place] Family Medicine [address] [place] [address] ProviderYusuf MD [facility] [place] [address] Social History Tobacco Use Types [...] - Historical ProviderMD - 02/13/2019 2:[address] SUPERINTENDENT Restoration Technician Details Entered On: 02/13/2019 4:00 EST Performed [...]
--- OUTSIDE RECORDS SUMMARY | 2024-11-19 09:55 | XMS_ITS | Encounter Summary ---
Author Organization [employer] ([place], [place], [place], [place]) Address [address] [place] [address] Care Team Providers Care Lead Quality Technician Name Role Phone Unavailable Primary Care Provider Unavailabl e Encounter Details Date Type Department Care Team (Late st Contact Info) Description 02/10/2019 Transcribed Document [facility] [place] [address] ProviderYusuf [place] [address] Social History Tobacco Use Types [...] - Historical ProviderMD - 02/10/2019 5:38 PM RV TECHNICIAN Patient: FRANKY DEWITT Age: 74 Years [...] counseling. Electronically signed by Onel Snyder Conversion Airplane Gas Tank Liner Assembler Cerner at 07/07/2022 10:01 PM CDT documented in this encounter Plan of Treatment Not on file documented as of this encounter Visit Diagnoses Not on filedocumented in this encounter
--- OUTSIDE RECORDS SUMMARY | 2024-11-19 09:55 | XMS_ITS | Encounter Summary ---
Author Organization [employer] ([place], [place], [place], [place]) Address [address] [place] [address] Care Team Providers Care Pheresis Nurse Name Role Phone Unavailable Primary Care Provider Unavailabl e Encounter Details Date Type Department Care Team (Late st Contact Info) Description 02/11/2019 Transcribed Document [facility] [place] [facility] [place] [address] ProviderYusuf MD [facility] [place] [address] Social History Tobacco Use Types [...] - Historical ProviderMD - 02/11/2019 1:30 PM SUPERVISOR GROWER Pain Assessment Entered On: 02/11/2019 15:30 EST [...]
--- OUTSIDE RECORDS SUMMARY | 2024-11-19 09:55 | XMS_ITS | Encounter Summary ---
Author Organization [employer] ([place], [place], [place], [place]) Address [address] [place] [address] Care Team Providers Care Packing And Stamping Machine Operator Name Role Phone Unavailable Primary Care Provider Unavailabl e Encounter Details Date Type Department Care Team (Late st Contact Info) Description 02/14/2019 Transcribed Document [facility] [place] Pending [facility] to [facility] [place] [address] ProviderYusuf MD [place] [address] Social History Tobacco Use Types [...] - Historical ProviderMD - 02/14/2019 11:30 AM MED SPA MANAGER Attempt to Treat, OT Entered On: 02/14/2019 [...]
--- OUTSIDE RECORDS SUMMARY | 2024-11-19 09:55 | XMS_ITS | Encounter Summary ---
Author Organization [employer] ([place], [place], [place], [place]) Address [address] [place] [address] Care Team Providers Care Weaving Supervisor Name Role Phone Unavailable Primary Care Provider Unavailabl e Encounter Details Date Type Department Care Team (Late st Contact Info) Description 02/05/2019 Transcribed Document [facility] [place] [address] [place] [address] ProviderYusuf MD [address] [place] [address] Social History Tobacco Use Types [...] - Historical ProviderMD - 02/05/2019 10:53 AM SOLUTIONS DELIVERY CONSULTANT WASTEWATER ENGINEER Attempt to Treat Entered On: 02/05/2019 10:54 [...]
--- OUTSIDE RECORDS SUMMARY | 2024-11-19 09:55 | XMS_ITS | Encounter Summary ---
Author Organization [employer] ([place], [place], [place], [place]) Address [address] [place] [address] Care Team Providers Care Electric Stop Installer Name Role Phone Unavailable Primary Care Provider Unavailabl e Encounter Details Date Type Department Care Team (Late st Contact Info) Description 02/10/2019 Transcribed Document [facility] [place] [address] [place] [address] ProviderYusuf [place] [address] Social History Tobacco Use Types [...] - Historical ProviderMD - 02/10/2019 5:00 AM CLERICAL GRADER Chart Check - Review Order Profile Entered [...]
--- OUTSIDE RECORDS SUMMARY | 2024-11-19 09:55 | XMS_ITS | Encounter Summary ---
Author Organization [employer] ([place], [place], [place], [place]) Address [address] [place] [address] Care Team Providers Care Corporate Planner Name Role Phone Unavailable Primary Care Provider Unavailabl e Encounter Details Date Type Department Care Team (Late st Contact Info) Description 02/12/2019 Transcribed Document [facility] [place] [facility] [place] [address] ProviderYusuf MD [facility] [place] [address] Social History Tobacco Use Types [...] - Historical ProviderMD - 02/12/2019 8:56 AM NEGATIVE CHECKER Consult Phone Call Documentation Entered On: 02/12/2019 9:20 EST Performed On: 02/12/2019 8:56 EST by Gloria Acosta [facility] Phone Call for Consults Consult Phone Call/Page Attempt : First call Gloria Acosta [facility] - 02/12/2019 9:20 EST Consult Reason : Cervical Myopathy Physician Requesting Consult : BASHIR RAYMOND MD-INT Provider Service Notified Name : Other: Rheumatology Date and Time Call Returned : 02/12/2019 8:56 EST Gloria Acosta [facility] - 02/12/2019 9:17 EST Electronically signed by Lillian [facility] Conversion Manager Multimedia Cerner at 07/07/2022 9:51 PM CDT documented in this encounter Plan of Treatment Not on file documented as of this encounter Visit Diagnoses Not on filedocumented in this encounter
--- OUTSIDE RECORDS SUMMARY | 2024-11-19 09:55 | XMS_ITS | Encounter Summary ---
Author Organization [employer] ([place], [place], [place], [place]) Address [address] [place] [address] Care Team Providers Care Barrel Marker Name Role Phone Unavailable Primary Care Provider Unavailabl e Encounter Details Date Type Department Care Team (Late st Contact Info) Description 02/14/2019 Transcribed Document [facility] [place] [address] [place] [address] ProviderYusuf MD [place] [address] Social History Tobacco Use [...] - Historical ProviderMD - 02/14/2019 5:00 AM FRUIT COORDINATOR Chart Check - Review Order Profile Entered On: 02/14/2019 6:41 EST Performed On: 02/14/2019 5:00 EST by JAYA WASHINGTON REGISITERED_ Chart Check Powerplans Initiated/Discontinued as Appropriate : Yes All Active Orders Reviewed : Yes JAYA WASHINGTON REGISITERED_ - 02/14/2019 6:41 EST Electronically signed by Lillian [facility] Conversion Casino Supervisor Cerner at 07/07/2022 10:01 PM CDT documented in this encounter Plan of Treatment Not on file documented as of this encounter Visit Diagnoses Not on filedocumented in this encounter
--- OUTSIDE RECORDS SUMMARY | 2024-11-19 09:55 | XMS_ITS | Encounter Summary ---
Author Organization [employer] ([place], [place], [place], [place]) Address [address] [place] [address] Care Team Providers Care Telephoner Name Role Phone Unavailable Primary Care Provider Unavailabl e Encounter Details Date Type Department Care Team (Late st Contact Info) Description 02/14/2019 Transcribed Document [facility] Radiology 1 [place] [address] Zack Jha MD [address] [place] [address] [address] [place] [id number] Social History Tobacco Use Types Packs/Day Years [...] 02/05/[address] Johan Sue neurology [facility] Chief complaint bilateral upper and lower [...] gallop, S1+ S2 No S3 or S4 [place].. Gastrointestinal: Soft, Non-tender, Non-distended, Normal bowel sounds. [...] is ongoing. DC plan: Likely tomorrow to [facility]. documented in this encounter Plan of Treatment Not on file documented as of this encounter Visit Diagnoses Not on filedocumented in this encounter
--- OUTSIDE RECORDS SUMMARY | 2024-11-19 09:55 | XMS_ITS | Encounter Summary ---
Author Organization [employer] ([place], [place], [place], [place]) Address [address] [place] [address] Care Team Providers Care Brace End Mainspring Former Name Role Phone Unavailable Primary Care Provider Unavailabl e Encounter Details Date Type Department Care Team (Late st Contact Info) Description 02/15/2019 Transcribed Document [facility] [place] [address] ProviderYusuf [place] [address] Social History Tobacco Use Types [...] - Yusuf ProviderMD - 02/15/2019 10:58 AM SECONDARY HISTORY TEACHER Patient Education Materials Follows: Transverse Myelitis Transverse [...] You may need to see a nervous electrical systems drafter (neurologist) to have tests, which may include: [...] Follow these instructions at home: ??? Take besy-yfq-fqkspqj and prescription medicines only as told by [...] 02/25/2003 Document Revised: 11/07/2016 Document Reviewed: 08/13/2015 [employer] Patient Education ? 2019 [employer] Neurology Spinal Cord Infarction A spinal cord [...] ? Manage bowel and bladder problems. ? Parthenon with mental health problems. ? Manage pain. [...] 02/25/2003 Document Revised: 11/02/2016 Document Reviewed: 05/21/2014 [employer] Patient Education ? 2019 [employer] Weakness Weakness is a lack of [...] sleep you need each night. ??? Take vkjp-gef-pzguqvx and prescription medicines only as told by [...] about working with a physical therapist or computer trainer to help you get stronger. ??? [...] 02/17/2009 Document Revised: 04/01/2016 Document Reviewed: 12/26/2015 [employer] Patient Education ? 2019 [employer] Obstetrics and Gynecology Near-Syncope Near-syncope is [...] This can help with dizziness. ??? Take hkzp-wnx-bljdaoj and prescription medicines only as told by [...] 11/19/2015 Else[employer] Interactive Patient Education ? 2019 [employer] documented in this encounter Plan of Treatment Not on file documented as of this encounter Visit Diagnoses Not on filedocumented in this encounter
--- OUTSIDE RECORDS SUMMARY | 2024-11-19 09:55 | XMS_ITS | Encounter Summary ---
Author Organization [employer] ([place], [place], [place], [place]) Address [address] [place] [address] Care Team Providers Care Aerial Lineman Name Role Phone Unavailable Primary Care Provider Unavailabl e Encounter Details Date Type Department Care Team (Late st Contact Info) Description 02/09/2019 Transcribed Document [facility] Radiology 1 [place] [address] Anne Peters MD [address] [place] [address] [address] [place] [id number] Social History Tobacco Use Types Packs/Day Years [...] discharge Referring physician Dr. Johan Sue neurology [facility] Chief complaint bilateral upper and [...] At risk for sleep apnea / O [id number] / Confirmed, Active Problems (3) At risk [...] gallop, S1+ S2 No S3 or S4 [place].. Gastrointestinal: Soft, Non-tender, Non-distended, Normal bowel sounds. [...]
--- OUTSIDE RECORDS SUMMARY | 2024-11-19 09:55 | XMS_ITS | Encounter Summary ---
Author Organization [employer] ([place], [place], [place], [place]) Address [address] [place] [address] Care Team Providers Care Drop Board Man Name Role Phone Unavailable Primary Care Provider Unavailabl e Encounter Details Date Type Department Care Team (Late st Contact Info) Description 02/05/2019 Transcribed Document [facility] [place] [facility] [place] [address] ProviderYusuf MD [facility] [place] [address] Social History Tobacco Use Types [...] - Historical ProviderMD - 02/05/2019 10:38 AM PRINCIPAL TECHNOLOGIST Pain Assessment Entered On: 02/09/2019 15:20 EST [...]
--- OUTSIDE RECORDS SUMMARY | 2024-11-19 09:55 | XMS_ITS | Encounter Summary ---
Author Organization [employer] ([place], [place], [place]) Address [address] [place] [address] Care Team Providers Care Splash Line Operator Name Role Phone Unavailable Primary Care Provider Unavailabl e Encounter Details Date Type Department Care Team (Late st Contact Info) Description 02/10/2019 Transcribed Document [facility] [place] [facility] [place] [address] ProviderYusuf [place] [address] Social History Tobacco Use Types [...] - Historical ProviderMD - 02/10/2019 2:00 AM EMERGENCY WORKER Planimeter Operator Details Entered On: 02/10/2019 2:04 EST Performed On: 02/10/2019 2:00 EST by Ruht Mueller RN-Resource Order Details Transport Mode Order [...]
--- OUTSIDE RECORDS SUMMARY | 2024-11-19 09:55 | XMS_ITS | Encounter Summary ---
Author Organization [employer] ([place], [place], [place], [place]) Address [address] [place] [address] Care Team Providers Care Academic Interventionist Name Role Phone Unavailable Primary Care Provider Unavailabl e Encounter Details Date Type Department Care Team (Late st Contact Info) Description 02/09/2019 Transcribed Document [facility] [place] [facility] [place] [address] ProviderYusuf MD [facility] [place] [address] Social History Tobacco Use Types [...] - Historical ProviderMD - 02/09/2019 5:00 PM INCIDENT RESPONSE ENGINEER Chart Check - Review Order Profile Entered On: 02/09/2019 15:20 EST Performed On: 02/09/2019 17:00 EST by Yeimi Olmos RN Chart Check Powerplans Initiated/Discontinued as Appropriate : Yes All Active Orders Reviewed : Yes Yeimi Olmos RN - 02/09/2019 15:20 EST Electronically signed by Lillian [facility] Conversion Data Management Consultant Cerner at 07/07/2022 9:50 PM CDT documented in this encounter Plan of Treatment Not on file documented as of this encounter Visit Diagnoses Not on filedocumented in this encounter
--- OUTSIDE RECORDS SUMMARY | 2024-11-19 09:55 | XMS_ITS | Clinical Summary ---
Author Organization [facility] Address [address] [place] [address] Care Team Providers Care Loom Winder Tender Name Role Phone Jensen Santiago MD Primary Care Provider [phone] Allergies Active Allergy Reactions Criticality Noted Date [...] or (1 - 1-dose 75+ series) 2022 [id number] Vaccine (2023- season) 2023 12/16/2021, 07/31/2021, 01/28/2021, [...] age to complete this topic [place] [phone] [facility] Care Teams Loom Winder Tender Relationship Specialty Start Date End Date Jensen Santiago MD [address] [place] [phone] PCP - General 12/11/20
--- OUTSIDE RECORDS SUMMARY | 2024-11-19 09:55 | XMS_ITS | Encounter Summary ---
Author Organization [employer] ([place], [place], [place], [place]) Address [address] [place] [address] Care Team Providers Care Staffing And Scheduling Coordinator Name Role Phone Unavailable Primary Care Provider Unavailabl e Encounter Details Date Type Department Care Team (Late st Contact Info) Description 02/11/2019 Transcribed Document [facility] [place] [address] [place] [address] ProviderYusuf MD [facility] [place] [address] Social History Tobacco Use Types [...] - Historical ProviderMD - 02/11/2019 5:00 PM NEWS LIBRARY DIRECTOR Chart Check - Review Order Profile Entered [...]
--- OUTSIDE RECORDS SUMMARY | 2024-11-19 09:55 | XMS_ITS | Encounter Summary ---
Author Organization [employer] ([place], [place], [place], [place]) Address [address] [place] [address] Care Team Providers Care Administrative Support Manager Name Role Phone Unavailable Primary Care Provider Unavailabl e Encounter Details Date Type Department Care Team (Late st Contact Info) Description 02/10/2019 Transcribed Document [facility] [place] Family Medicine [address] [place] [address] ProviderYusuf MD [facility] [place] [address] Social History Tobacco Use Types [...] - Historical ProviderMD - 02/10/2019 5:00 PM SASH MAKER Chart Check - Review Order Profile [...]
--- OUTSIDE RECORDS SUMMARY | 2024-11-19 09:55 | XMS_ITS | Encounter Summary ---
Author Organization [employer] ([place], [place], [place], [place]) Address [address] [place] [address] Care Team Providers Care Conceptor Name Role Phone Unavailable Primary Care Provider Unavailabl e Encounter Details Date Type Department Care Team (Late Contact Info) Description 02/12/2019 Transcribed Document [facility] [place] [facility] [place] [address] ProviderYusuf MD [facility] [place] [address] Social History Tobacco Use [...] - Historical ProviderMD - 02/12/2019 5:20 PM RACK ROOM WORKER Patient: FRANKY SCOTT Age: 74 Years [...] Tab, Oral, Daily Electronically signed by Lillian, [facility] Conversion Dope Pourer Cerner at 07/07/2022 9:51 PM CDT documented in this encounter Plan of Treatment Not on file documented as of this encounter Visit Diagnoses Not on filedocumented in this encounter
--- OUTSIDE RECORDS SUMMARY | 2024-11-19 09:55 | XMS_ITS | Encounter Summary ---
Author Organization [employer] ([place], [place], [place], [place]) Address [address] [place] [address] Care Team Providers Care Child Life Therapist Name Role Phone Unavailable Primary Care Provider Unavailabl e Encounter Details Date Type Department Care Team (Late st Contact Info) Description 02/11/2019 Transcribed Document [facility] [place] [address] ProviderYusuf MD [facility] [address] Social History Tobacco Use Types [...] - Historical ProviderMD - 02/11/2019 10:44 AM PROFESSIONAL TUTOR Patient: FRANKY DEWITT Age: 74 Years Sex: [...]
--- OUTSIDE RECORDS SUMMARY | 2024-11-19 09:55 | XMS_ITS | Encounter Summary ---
Author Organization [employer] ([place], [place], [place], [place]) Address [address] [place] [address] Care Team Providers Care Senior Marketing Coordinator Name Role Phone Unavailable Primary Care Provider Unavailabl e Encounter Details Date Type Department Care Team (Late st Contact Info) Description 02/05/2019 Transcribed Document [facility] Radiology 1 [place] [address] Anne Peters MD [address] [place] [address] [address] [id number] Social History Tobacco Use Types Packs/Day Years [...] Q4H, PRN: Nausea heparin: 5,000 Units, SubCutaneous, [id number] hydrALAZINE: 5 mg, IV Push, Q4H, PRN: Hypertension morphine: 2 mg, IV Push, Q2H, PRN: Pain (Severe 7-10), No qualifying data available , Medications (8) Active Scheduled: (2) famotidine 20 mg tab 20 mg 1 Tab, Oral, Q12H heparin 5,000 Units, SubCutaneous, [id number] Continuous: (0) PRN: (6) acetaminophen 325 mg [...] gallop, S1+ S2 No S3 or S4 [place].. Gastrointestinal: Soft, Non-tender, Non-distended, Normal bowel sounds. [...]
--- OUTSIDE RECORDS SUMMARY | 2024-11-19 09:55 | XMS_ITS | Encounter Summary ---
Author Organization [employer] ([place], [place], [place], [place]) Address [address] [place] [address] Care Team Providers Care Guide Winder Name Role Phone Unavailable Primary Care Provider Unavailabl e Encounter Details Date Type Department Care Team (Late st Contact Info) Description 02/12/2019 Transcribed Document [facility] [place] Family Medicine [address] [place] [address] ProviderYusuf MD [place] [address] Social History Tobacco Use [...] - Historical ProviderMD - 02/12/2019 9:00 AM REAL ESTATE SUBAGENT Consult Phone Call Documentation Entered On: 02/12/2019 9:21 EST Performed On: 02/12/2019 9:00 EST by Gloria Acosta [facility] Phone Call for Consults Consult Phone Call/Page Attempt : Other: Md called Consult Reason : Thrombocytosis Physician Requesting Consult : BASHIR RAYMOND MD-INT Physician Requested for Consult : EMANUEL MITCHELL MD-RHE Provider Service Notified Name : Other: Oncology Date and Time Call Returned : 02/12/2019 8:56 EST Gloria Acosta [facility] - 02/12/2019 9:20 EST Electronically signed by Lillian [facility] Conversion Tool Lapper Hand Cerner at 07/07/2022 9:48 PM CDT documented in this encounter Plan of Treatment Not on file documented as of this encounter Visit Diagnoses Not on filedocumented in this encounter
--- OUTSIDE RECORDS SUMMARY | 2024-11-19 09:55 | XMS_ITS | Encounter Summary ---
Author Organization [employer] ([place], [place], [place], [place]) Address [address] [place] [address] Care Team Providers Care Opinion Polls Survey Worker Name Role Phone Unavailable Primary Care Provider Unavailabl e Encounter Details Date Type Department Care Team (Late st Contact Info) Description 02/09/2019 Transcribed Document [facility] [place] Medicine [facility] [place] [address] ProviderYusuf MD [facility] [place] [address] Social History Tobacco Use Types [...] - Historical ProviderMD - 02/09/2019 5:00 AM BROOM BUILDER Chart Check - Review Order Profile Entered [...]
--- OUTSIDE RECORDS SUMMARY | 2024-11-19 09:55 | XMS_ITS | Encounter Summary ---
Author Organization [employer] ([place], [place], [place], [place]) Address [address] [place] [address] Care Team Providers Care Child Care Team Lead Name Role Phone Unavailable Primary Care Provider Unavailabl e Encounter Details Date Type Department Care Team (Late st Contact Info) Description 02/10/2019 Transcribed Document [facility] Radiology 1 [place] [address] Anne Peters MD [address] [place] [address] [address] [place] [id number] Social History Tobacco Use Types Packs/Day Years [...] Referring physician Dr. Johan Sue neurology [facility] Chief complaint bilateral upper and [...] At risk for sleep apnea / IMO [id number] / Confirmed, Active Problems (3) At risk [...] gallop, S1+ S2 No S3 or S4 [place].. Gastrointestinal: Soft, Non-tender, Non-distended, Normal bowel sounds. [...]
--- OUTSIDE RECORDS SUMMARY | 2024-11-19 09:55 | XMS_ITS | Encounter Summary ---
Author Organization [employer] ([place], [place], [place], [place]) Address [address] [place] [address] Care Team Providers Care Aviation Neuropsychologist Name Role Phone Unavailable Primary Care Provider Unavailabl e Encounter Details Date Type Department Care Team (Late st Contact Info) Description 02/15/2019 Transcribed Document [facility] [place] [address] [place] [address] ProviderYusuf MD [facility] [place] [address] Social History Tobacco Use Types [...] - Historical ProviderMD - 02/15/2019 5:00 AM TEMPLATE MAKER Chart Check - Review Order Profile Entered On: 02/15/2019 6:55 EST Performed On: 02/15/2019 5:00 EST by Esther Cheek RN Chart Check All Active Orders Reviewed : Yes Esther Cheek RN - 02/15/2019 6:55 EST Electronically signed by Lillian [facility] Conversion Machine Rigger Cerner at 07/07/2022 9:50 PM CDT documented in this encounter Plan of Treatment Not on file documented as of this encounter Visit Diagnoses Not on filedocumented in this encounter
--- OUTSIDE RECORDS SUMMARY | 2024-11-19 09:55 | XMS_ITS | Encounter Summary ---
Author Organization [employer] ([place], [place], [place], [place]) Address [address] [place] [address] Care Team Providers Care Regulatory Technician Name Role Phone Unavailable Primary Care Provider Unavailabl e Encounter Details Date Type Department Care Team (Late st Contact Info) Description 02/14/2019 Transcribed Document [facility] [place] Family Medicine [facility] [place] [address] ProviderYusuf MD [facility] [place] [address] Social History Tobacco Use Types [...] - Historical ProviderMD - 02/14/2019 2:00 AM GARDENER Semi Conductor Assembler Details Entered On: 02/14/2019 6:40 EST Performed [...]
--- OUTSIDE RECORDS SUMMARY | 2024-11-19 09:55 | XMS_ITS | Encounter Summary ---
Author Organization [employer] ([place], [place], [place], [place]) Address [address] [place] [address] Care Team Providers Care Hot Wound Spring Production Supervisor Name Role Phone Unavailable Primary Care Provider Unavailabl e Encounter Details Date Type Department Care Team (Late st Contact Info) Description 02/12/2019 Transcribed Document [facility] [place] [facility] [place] [address] ProviderYusuf MD [facility] [place] [address] Social History Tobacco Use [...] - Historical ProviderMD - 02/12/2019 9:00 AM MICROFILM EQUIPMENT INSPECTOR Pain Assessment Entered On: 02/12/2019 11:07 EST [...]
--- OUTSIDE RECORDS SUMMARY | 2024-11-19 09:55 | XMS_ITS | Encounter Summary ---
Author Organization [employer] ([place], [place], [place], [place]) Address [address] [place] [address] Care Team Providers Care Hot Blaster Name Role Phone Unavailable Primary Care Provider Unavailabl e Encounter Details Date Type Department Care Team (Late st Contact Info) Description 02/11/2019 Transcribed Document [facility] Radiology 1 [place] [address] Anne Peters MD [address] [place] [address] [address] [place] [phone] Social History Tobacco Use Types Packs/Day Years [...] : 1945 Associated Diagnoses: None Author: ANNE PEETRS MD-INT Subjective Primary care physician Dr Bradley CRUZ Date of admission 02/05/[address] Johan Sue neurology [facility] Chief complaint bilateral upper and [...] At risk for sleep apnea / IMO [id number] / Confirmed, Active Problems (3) At risk [...] gallop, S1+ S2 No S3 or S4 [place].. Gastrointestinal: Soft, Non-tender, Non-distended, Normal bowel sounds. [...]
--- OUTSIDE RECORDS SUMMARY | 2024-11-19 09:55 | XMS_ITS | Encounter Summary ---
Author Organization [employer] ([place], [place], [place], [place]) Address [address] [place] [address] Care Team Providers Care Pr Internship Name Role Phone Unavailable Primary Care Provider Unavailabl e Encounter Details Date Type Department Care Team (Late st Contact Info) Description 02/05/2019 Transcribed Document [facility] [place] Medicine [facility] [place] [address] ProviderYusuf MD [facility] [address] Social History Tobacco Use Types [...] - Historical ProviderMD - 02/05/2019 2:38 PM RN CHILD Treatment Intervention, PT Entered On: 02/06/2019 11:48 [...] : Occupational Therapist Assisted by, PT : bacteriology technician/aide Personal Devices : Personal Devices Glasses [...] of Physical Therapy : Verbalizes understanding SIVAKUMAR MCKILNEY, PT - 02/06/2019 11:44 EST Indication Assesessment, PT Physical Therapy Indicated : Yes SIVAKUMAR MCKINLEY PT - 02/06/2019 11:44 EST Plan of Care, PT PT Tx Plan/Goals Established w Patient : Yes SIVAKUMAR MCKINLEY PT - 02/06/2019 11:44 EST Snf Goals Mobility/Bed Mobility LTG PT Grid Goal [...] 11:44 EST Electronically signed by Lillian [facility] Conversion License And Permit Specialist Cerner at 07/07/2022 9:58 PM CDT documented in this encounter Plan of Treatment Not on file documented as of this encounter Visit Diagnoses Not on filedocumented in this encounter
--- OUTSIDE RECORDS SUMMARY | 2024-11-19 09:55 | XMS_ITS | Encounter Summary ---
Author Organization [employer] ([place], [place], [place], [place]) Address [address] [place] [address] Care Team Providers Care Turbine Attendant Name Role Phone Unavailable Primary Care Provider Unavailabl e Encounter Details Date Type Department Care Team (Late st Contact Info) Description 02/14/2019 Transcribed Document [facility] [place] [address] ProviderYusuf [place] [address] Social History Tobacco Use [...] - Historical ProviderMD - 02/14/2019 5:00 PM LEVERMAN Chart Check - Review Order Profile Entered [...]
--- OUTSIDE RECORDS SUMMARY | 2024-11-19 09:55 | XMS_ITS | Encounter Summary ---
Author Organization [employer] ([place], [place], [place], [place]) Address [address] [place] [address] Care Team Providers Care Line Driver Name Role Phone Unavailable Primary Care Provider Unavailabl e Encounter Details Date Type Department Care Team (Late st Contact Info) Description 02/09/2019 Transcribed Document [facility] [place] [facility] [place] [address] ProviderYusuf MD [facility] [place] [address] Social History Tobacco Use Types [...] - Historical ProviderMD - 02/09/2019 2:51 PM COMMERCIAL LOAN COORDINATOR On Going Discharge Planning Entered On: 02/09/2019 14:52 EST Performed On: 02/09/2019 14:51 EST by ALECIA GOMEZ RN-Potato GraderPublication Distributor Progress Note Discharge Arrangements : Patient Post-Acute [...] Meeting Medical Necessity : Yes ALECIA GOMEZ RN-Potato Grader - 02/09/2019 14:51 EST Narrative Progress Note [...] to follow for d/c needs. ALECIA GOMEZ RN-Potato Grader - 02/08/19 09:16:23 CM reviewed chart. RRS 38. Cm to room to met pt. Pt spouse in room. spouse stated that pt is off floor for Xray. Spouse stated that DCP is to discharge home with family. Possible hh if a need. CM will continue to follow for d/c needs. ALECIA GOMEZ RN-Potato Grader - 02/07/19 09:05:36 ALECIA GOMEZ RN-Potato Grader - 02/09/2019 14:51 EST documented in this encounter Plan of Treatment Not on file documented as of this encounter Visit Diagnoses Not on filedocumented in this encounter
--- OUTSIDE RECORDS SUMMARY | 2024-11-19 09:55 | XMS_ITS | Clinical Summary ---
[facility] Organization [facility] Address [address] [place] [address] Care Team Providers Care Costume Rental Clerk Name Role Phone Jensen Santiago MD Primary Care Provider [phone] Allergies Active Allergy Reactions Criticality Noted Date Comments Lisinopril Hives Low 03/28/2019 Penicillins Rash Low 03/28/2019 Tramadol Rash Low 10/17/2019 Medications potassium chloride (K-DUR,KLOR-CON) 10 MEQ CR tablet Take 10 mEq by mouth Daily. 9 Active losartan (COZAAR) 25 MG tablet Take 1 tablet by mouth Daily. Active Biotin 22528 MCG tablet Take 1,000 mcg by mouth Daily. Active Ridgway-3 Fatty Acids (FISH OIL) 500 MG capsule [...] TO AFFECTED AREA TWICE DAILY 2 Active Ridgway-3 Fatty Acids (fish oil) 1000 MG capsule [...] 06/29/2019, 04/22 Medical Devices Implanted Type Area Ends Breakage Clerk Device Identifier Shelf Expiration Date Model / Serial / Lot Sys Liq Emb [place] 18 Evoh/6pct Vl1.5ml - [id number] Implanted:Qty: 1 on 04/06/2019 by Laurent Kelsey MD at [facility] Implant EV[employer] [place] [id number] / / Insurance MEDICARE A & B [employer] [facility] Advance Directives Documents on File Type Date Recorded Patient Software Test Automation Engineer Expl anation LIVING WILL - SCAN 03/29/2019 [...] Scott Spouse Health Care Surrogate Care Teams Costume Rental Clerk Relationship Specialty Start Date End Date Jensen Santiago MD [address] [place] [address] [place] [address] PCP - General Family Medicine 03/26/19
--- OUTSIDE RECORDS SUMMARY | 2024-11-19 09:55 | XMS_ITS | Encounter Summary ---
Author Organization [employer] ([place], [place], [place], [place]) Address [address] [place] [address] Care Team Providers Care Business Machines Teacher Name Role Phone Unavailable Primary Care Provider Unavailabl e Encounter Details Date Type Department Care Team (Late st Contact Info) Description 02/12/2019 Transcribed Document [facility] [place] Family Medicine [address] [place] [address] ProviderYusuf MD [facility] [place] [address] Social History Tobacco Use Types [...] - Historical ProviderMD - 02/12/2019 5:00 AM FAMILY LAW LEGAL ASSISTANT Chart Check - Review Order Profile Entered On: 02/12/2019 7:02 EST Performed On: 02/12/2019 5:00 EST by JAYA [place] REGISITERED_ Chart Check Powerplans Initiated/Discontinued as Appropriate : Yes All Active Orders Reviewed : Yes JAYA W[place] REGISITERED_ - 02/12/2019 7:02 EST Electronically signed by Lillian [facility] Conversion Night Court Magistrate Cerner at 07/07/2022 9:55 PM CDT documented in this encounter Plan of Treatment Not on file documented as of this encounter Visit Diagnoses Not on filedocumented in this encounter
--- OUTSIDE RECORDS SUMMARY | 2024-11-19 09:56 | XMS_ITS | Referral Summary ---
Author Organization [employer] ([place], [place], [place], [place]) Address [address] [place] [address] Care Team Providers Care Transportation Manager Name Role Phone Unavailable Primary Care [...]
--- OUTSIDE RECORDS SUMMARY | 2024-11-19 09:56 | XMS_ITS | Encounter Summary ---
Author Organization [employer] ([place], [place], [place], [place]) Address [address] [place] [address] Care Team Providers Care Instrumentation Tech Name Role Phone Unavailable Primary Care Provider Unavailabl e Encounter Details Date Type Department Care Team (Late st Contact Info) Description 02/15/2019 Transcribed Document [facility] [place] [address] [place] [address] ProviderYusuf MD [facility] [place] [address] Social History Tobacco Use Types [...] - Historical ProviderMD - 02/15/2019 10:46 AM SERVICE ENGINEER Stroke/Warfarin Instructions Entered On: 02/15/2019 10:46 [...]
--- OUTSIDE RECORDS SUMMARY | 2024-11-19 09:56 | XMS_ITS | Encounter Summary ---
Author Organization [employer] ([place], [place], [place], [place]) Address [address] [place] [address] Care Team Providers Care Paste Up Copy Camera Operator Name Role Phone Unavailable Primary Care Provider Unavailabl e Encounter Details Date Type Department Care Team (Late st Contact Info) Description 02/15/[address] [facility] [place] Family Medicine [facility] [address] ProviderYusuf MD [facility] [place] [address] Social History Tobacco Use [...] - Yusuf ProviderMD - 02/15/2019 10:59 AM PUMP RUNNER Final Discharge Planning Entered On: 02/15/2019 11:02 EST Performed On: 02/15/2019 10:59 EST by ALECIA GOMEZ RN-Talent Acquisition Specialist Final Discharge Planning Discharge Arrangements : Patient Post-Acute Information Patient Name: FRANKY SCOTT Gender: Female : [birth year] Age: 74 Years [place] Referral(s): Service: Organization: Business Address: Phone Number: Acute Rehab [facility] [address] [place], [address] Patient Offered Choice/Affiliations Explained : Yes Transportation Needs : Family/Friend Discharge To Care Management : IRF -Inpatient Rehabilitation Facility- ALECIA GOMEZ RN-Talent Acquisition Specialist - 02/15/2019 10:59 EST Final Narrative Note Final Narrative Note : CM reviewed chart. RRS 32. CM met to discuss DCP. [facility] spinal cord unit today. will transport. IM and Choice signed.. Cm informed pharmacy and bedside RN. Confirmed with [facility]. No further needs noted. ALECIA GOMEZ, JONATAN-Talent Acquisition Specialist - 02/15/2019 10:59 EST Electronically signed by Interface, [facility] Conversion Stone Setter Apprentice Cerner at 07/07/2022 9:55 PM CDT documented in this encounter Plan of Treatment Not on file documented as of this encounter Visit Diagnoses Not on filedocumented in this encounter
--- OUTSIDE RECORDS SUMMARY | 2024-11-19 09:56 | XMS_ITS | Encounter Summary ---
Author Organization [employer] ([place], [place], [place], [place]) Address [address] [place] [address] Care Team Providers Care Maintenance Planning Clerk Name Role Phone Unavailable Primary Care Provider Unavailabl e Encounter Details Date Type Department Care Team (Late st Contact Info) Description 02/15/2019 Transcribed Document [facility] [place] Family Medicine [facility] [place] [address] ProviderYusuf MD [facility] [place] [address] Social History Tobacco Use Types [...] - Yusuf ProviderMD - 02/15/2019 11:32 AM STORAGE GARAGE ATTENDANT Final Discharge Planning Entered On: 02/15/2019 11:35 EST Performed On: 02/15/2019 11:32 EST by ALECIA GOMEZ RN-Registered Nurse Renal Final Discharge Planning Discharge Arrangements : Patient Post-Acute Information Patient Name: FRANKY DEWITT Gender: Female : [birth year] Age: 74 Years [place] Referral(s): Service: Organization: Business Address: Phone Number: Acute Rehab [facility] [address] [place], [address] Patient Offered Choice/Affiliations Explained : Yes Transportation Needs : Family/Friend ALECIA GOMEZ RN-Registered Nurse Renal - 02/15/2019 11:32 EST Final Narrative Note Final Narrative Note : CM reviewed chart. CM met with pt to discuss DCP. [facility] spinal Cord unti today. will transport. IM and choice signed. Report to Rehabilitation: [facility] spinal cord unit/ Discharge Summary: [phone] faxed [facility] Follow up with Dr. Sue in 2 weeks. Pt informed. Follow up with Dr. Allen as recommended in 2-3 weeks. Pt informed. Historical Narrative Note : CM reviewed chart. RRS 32. CM met to discuss DCP. [facility] spinal cord unit today. will transport. IM and Choice signed.. Cm informed pharmacy and bedside RN. Confirmed with [facility]. No further needs noted. ALECIA GOMEZ, RN-Registered Nurse Renal - 02/15/19 11:02:20 ALECIA GOMEZ, JONATAN-Registered Nurse Renal - 02/15/2019 11:32 EST documented in this encounter Plan of Treatment Not on file documented as of this encounter Visit Diagnoses Not on filedocumented in this encounter
--- OUTSIDE RECORDS SUMMARY | 2024-11-19 09:56 | XMS_ITS | Encounter Summary ---
Author Organization [employer] ([place], [place], [place], [place]) Address [address] [place] [address] Care Team Providers Care Manager Software Name Role Phone Unavailable Primary Care Provider Unavailabl e Encounter Details Date Type Department Care Team (Late st Contact Info) Description 02/07/2019 Transcribed Document [facility] [place] Family Medicine [address] [place] [address] ProviderYusuf MD [facility] [place] [address] Social History Tobacco Use Types [...] - Historical ProviderMD - 02/07/2019 5:00 PM SIGN FABRICATOR Chart Check - Review Order Profile Entered [...]
--- OUTSIDE RECORDS SUMMARY | 2024-11-19 09:56 | XMS_ITS | Clinical Summary ---
Author Organization [employer] ([place], [place], [place], [place]) Address [address] [place] [address] Care Team Providers Care Graining Press Operator Name Role Phone Unavailable Primary [...]
--- OUTSIDE RECORDS SUMMARY | 2024-11-19 09:56 | XMS_ITS | Encounter Summary ---
Author Organization [employer] ([place], [place], [place], [place]) Address [address] [place] [address] Care Team Providers Care Kaitara Taraka Name Role Phone Unavailable Primary Care Provider Unavailabl e Encounter Details Date Type Department Care Team (Late st Contact Info) Description 02/08/2019 Transcribed Document [facility] Radiology [address] [place] [address] Anne Peters MD [address] [place] [address] [address] [place] [id number] Social History Tobacco Use Types Packs/Day Years [...] physician Dr. Johan Sue neurology [facility] Chief complaint bilateral upper and lower [...] At risk for sleep apnea / IMO [id number] / Confirmed, Active Problems (3) At risk [...] gallop, S1+ S2 No S3 or S4 [place].. Gastrointestinal: Soft, Non-tender, Non-distended, Normal bowel sounds. [...] (FEB 05) Radiology Results (Last 48 hours) [id number] -- 02/05/2019 10:21 CR Fluoro GD Lumbar Punct Dx (02/06/2019 14:40) Result: LUMBAR PUNCTURE AND FLUOROSCOPYHISTORY: Transverse myelitis.ATTENDING PHYSICIAN: Baljit Gee M.D.PHYSICIAN DIRECTOR OF COMMUNITY LIFE: KELSIE LuqueCPROCEDURE: After informed consent was obtained [...]
--- OUTSIDE RECORDS SUMMARY | 2024-11-19 09:56 | XMS_ITS | Encounter Summary ---
Author Organization [employer] ([place], [place], [place], [place]) Address [address] [place] [address] Care Team Providers Care Bindery Machine Tender Name Role Phone Unavailable Primary Care Provider Unavailabl e Encounter Details Date Type Department Care Team (Late st Contact Info) Description 02/08/2019 Transcribed Document [facility] [place] [facility] [place] [address] ProvideruYsuf MD [facility] [place] [address] Social History Tobacco Use Types [...] - Historical ProviderMD - 02/08/2019 5:00 AM ELECTRICAL MACHINE BUILDER Chart Check - Review Order Profile [...]
--- OUTSIDE RECORDS SUMMARY | 2024-11-19 09:56 | XMS_ITS | Encounter Summary ---
Author Organization [employer] ([place], [place], [place], [place]) Address [address] [place] [address] Care Team Providers Care Assembler Metal Furniture Name Role Phone Unavailable Primary Care Provider Unavailabl e Encounter Details Date Type Department Care Team (Late st Contact Info) Description 02/07/2019 Transcribed Document [facility] [place] Family Medicine [facility] [place] [address] ProviderYusuf MD [facility] [place] [address] Social History Tobacco Use Types [...] - Yusuf ProviderMD - 02/07/2019 9:04 AM RECYCLING SORTER On Going Discharge Planning Entered On: 02/07/2019 9:05 EST Performed On: 02/07/2019 9:04 EST by ALECIA GOMEZ RN-Design Project ManagerAircraft Cleaner Progress Note Discharge Arrangements : Patient Post-Acute [...] Meeting Medical Necessity : Yes ALECIA GOMEZ RN-Design Project Manager - 02/07/2019 9:04 EST Narrative Progress Note Narrative Progress Note : CM reviewed chart. RRS 38. Cm to room to met pt. Pt spouse in room. spouse stated that pt is off floor for Xray. Spouse stated that DCP is to discharge home with family. Possible hh if a need. CM will continue to follow for d/c needs. ALECIA GOMEZ, RN-Design Project Manager - 02/07/2019 9:04 EST documented in this encounter Plan of Treatment Not on file documented as of this encounter Visit Diagnoses Not on filedocumented in this encounter
--- OUTSIDE RECORDS SUMMARY | 2024-11-19 09:56 | XMS_ITS | Encounter Summary ---
Author Organization [employer] ([place], [place], [place], [place]) Address [address] [place] [address] Care Team Providers Care Employee'S Representative Name Role Phone Unavailable Primary Care Provider Unavailabl e Encounter Details Date Type Department Care Team (Late st Contact Info) Description 02/15/2019 Transcribed Document [facility] [place] [facility] [place] [address] ProviderYusuf MD [facility] [place] [address] Social History Tobacco Use Types [...] - Yusuf ProviderMD - 02/15/2019 1:24 PM MANAGER ETHICS [facility] [place], [place] [id number] FRANKY DEWITT :1945 Visit Time:02/05/2019 Your Visit [...] next Instructions From Your Care Team Rehabilitation: [facility] spinal cord unit/ / Discharge Summary: [phone] faxed [facility] Transportation: Car with family Follow up with Dr. Sue in 2 weeks. Follow up with Dr. Allen as recommended in 2-3 weeks. Discharge Follow Up Instructions: Follow-Up Appointments Follow Up with BRISEIDA SUE MD-GIBSON When Within 1 month Where: [address] [facility] [address]- Medications What How Much When Instructions Next [...] ? Manage bowel and bladder problems. ? [place] with mental health problems. ? Manage pain. [...] 02/25/2003 Document Revised: 11/02/2016 Document Reviewed: 05/21/2014 Getit InfoServices Interactive Patient Education ?? 2019 Getit InfoServices Inc. Near-Syncope Near-syncope is when you suddenly [...] This can help with dizziness. ??? Take sauu-ows-uxymlut and prescription medicines only as told by [...] 08/23/2008 Document Revised: 04/20/2017 Document Reviewed: 11/19/2015 ElseExoprise Interactive Patient Education ?? 2019 Getit InfoServices Inc. Weakness Weakness is a lack of [...] sleep you need each night. ??? Take tamv-ezt-aeqidlo and prescription medicines only as told by [...] about working with a physical therapist or marine animal trainer to help you get stronger. ??? [...] 02/17/2009 Document Revised: 04/01/2016 Document Reviewed: 12/26/2015 Getit InfoServices Interactive Patient Education ?? 2019 [employer]. Transverse Myelitis Transverse myelitis is a condition [...] You may need to see a nervous ground systems engineer (neurologist) to have tests, which [...] Follow these instructions at home: ??? Take gczc-hhl-avmwqha and prescription medicines only as told by [...] 02/25/2003 Document Revised: 11/07/2016 Document Reviewed: 08/13/2015 Getit InfoServices Interactive Patient Education ?? 2019 [employer]. prednisone (PRED lucas zelda Wallsos What is [...] may report side effects to FDA at 3-116-XVE-8416. What other drugs will affect prednisone? Sometimes [...] may affect prednisone. This includes prescription and zlxp-ait-soedmhx medicines, vitamins, and herbal products. Not all [...] to ensure that the information provided by weipass. ('Multum') is accurate, up-to-date, and complete, but no guarantee is made to that effect. Drug information contained herein may be time sensitive. Mediamorph information has been compiled for use by healthcare practitioners and consumers in the [place] and therefore Mediamorph does not warrant that uses outside of the [place] are appropriate, unless specifically indicated otherwise. oomas drug information does not endorse drugs, diagnose patients or recommend therapy. oomas drug information is an informational resource designed [...] effective or appropriate for any given patient. [facility] does not assume any responsibility for any aspect of healthcare administered with the aid of information [facility] provides. The information contained herein is not intended to cover all possible uses, directions, precautions, warnings, drug interactions, allergic reactions, or adverse effects. If you have questions about the drugs you are taking, check with your doctor, nurse or pharmacist. Copyright 4246-7960 [facility] Hospital[facility]otLinxSom[facility]. Version: 10.. Revision Date: 06/15/2018. Emergency Awareness [...] Assistance with quitting is available by contacting 8-327-UDCL-NOW. This is a free resource providing counseling, [...] range between ( 0.0 and 7.0 ) [place] #: 0.75 K/uL -- Normal range between ( 0.16 and 1.00 ) Eos #: 0.08 x10(3)/uL -- Normal range between ( 0.00 and 0.80 ) [place] %: 8.5 % -- Normal range between [...] RBC Morphology: Normal ANC #: 3 K/uL [place] Percent Man: 9 % -- Normal range [...] ) Urine Bilirubin Dipstick: Negative Urine Specific [place]: 1.020 -- Normal range between ( 1.005 [...] was given the opportunity to ask questions. Patient/Examiner Rating Clerk Name: Patient/Examiner Rating Clerk Signature: Relationship to Patient: Clinician/Hospital Examiner Rating Clerk Signature: Date: documented in this encounter Plan of Treatment Not on file documented as of this encounter Visit Diagnoses Not on filedocumented in this encounter
--- OUTSIDE RECORDS SUMMARY | 2024-11-19 09:56 | XMS_ITS | Encounter Summary ---
Author Organization [employer] ([place], [place], [place], [place]) Address [address] [place] [address] Care Team Providers Care Mat Machine Operator Name Role Phone Unavailable Primary Care Provider Unavailabl e Encounter Details Date Type Department Care Team (Late st Contact Info) Description 02/15/2019 Transcribed Document [facility] [place] Family Medicine [facility] [place] [address] ProviderYusuf MD [facility] [place] [address] Social History Tobacco Use [...] - Historical ProviderMD - 02/15/2019 10:46 AM HYDRO OPERATOR Nursing Discharge Summary Entered On: 02/15/2019 10:47 [...]
--- OUTSIDE RECORDS SUMMARY | 2024-11-19 09:56 | XMS_ITS | Encounter Summary ---
Author Organization [employer] ([place], [place], [place], [place]) Address [address] [place] [address] Care Team Providers Care Oil Expeller Operator Name Role Phone Unavailable Primary Care Provider Unavailabl e Encounter Details Date Type Department Care Team (Late st Contact Info) Description 02/15/2019 Transcribed Document [facility] Radiology [address] [place] [address] Zack Jha MD [address] [place] [address] [place] [id number] Social History Tobacco Use Types Packs/Day Years [...] 02/05/2019 Date of discharge: 02/15/2019 Discharge facilitys [facility] Full code at the time of discharge [...] gallop, S1+ S2 No S3 or S4 [place].. Gastrointestinal: Soft, Non-tender, Non-distended, Normal bowel sounds. [...] (FEB 05) Radiology Results (Last 48 hours) [id number] -- 02/05/2019 10:21 CT Abdomen Pelvis WO [...] per history. DC Instructions 1- DC to [facility] today 2- Follow with neurology Dr. Sue [...] minutes Cc DC summary to: PCP, neurology [facility], neurology [facility], rheumatology Dr. Allen, documented in this encounter Plan of Treatment Not on file documented as of this encounter Visit Diagnoses Not on filedocumented in this encounter
--- OUTSIDE RECORDS SUMMARY | 2024-11-19 09:56 | XMS_ITS | Encounter Summary ---
Author Organization [employer] ([place], [place], [place], [place]) Address [address] [place] [address] Care Team Providers Care Sap Trainer Name Role Phone Unavailable Primary Care Provider Unavailabl e Encounter Details Date Type Department Care Team (Late st Contact Info) Description 02/07/2019 Transcribed Document [facility] [place] [address] ProviderYusuf MD [address] [place] [address] Social History Tobacco Use [...] - Historical ProviderMD - 02/07/2019 12:08 PM TUFT MACHINE OPERATOR Patient: FRANKY SCOTT Age: 74 [...]
--- OUTSIDE RECORDS SUMMARY | 2024-11-19 09:56 | XMS_ITS | Encounter Summary ---
Author Organization [employer] ([place], [place], [place], [place]) Address [address] [place] [address] Care Team Providers Care Door Captain Name Role Phone Unavailable Primary Care Provider Unavailabl e Encounter Details Date Type Department Care Team (Late st Contact Info) Description 02/08/2019 Transcribed Document [facility] [place] [facility] [place] [address] ProviderYusuf MD [facility] [place] [address] Social History Tobacco Use Types [...] - Historical ProviderMD - 02/08/2019 6:01 AM HTML DEVELOPER Event Note Entered On: 02/08/2019 6:04 EST [...]
--- OUTSIDE RECORDS SUMMARY | 2024-11-19 09:56 | XMS_ITS | Encounter Summary ---
Author Organization [employer] ([place], [place], [place], [place]) Address [address] [place] [address] Care Team Providers Care Plush Finisher Name Role Phone Unavailable Primary Care Provider Unavailabl e Encounter Details Date Type Department Care Team (Late st Contact Info) Description 02/15/2019 Transcribed Document [facility] [place] [address] [place] [address] ProviderYusuf MD [place] [address] Social History Tobacco Use Types [...] - Historical ProviderMD - 02/15/2019 2:00 AM MANUFACTURING BAKER Project Admin Details Entered On: 02/15/2019 6:48 EST Performed [...]
--- OUTSIDE RECORDS SUMMARY | 2024-11-19 09:56 | XMS_ITS | Encounter Summary ---
Author Organization [employer] ([place], [place], [place], [place]) Address [address] [place] [address] Care Team Providers Care Lease Attendant Name Role Phone Unavailable Primary Care Provider Unavailabl e Encounter Details Date Type Department Care Team (Late st Contact Info) Description 02/15/2019 Transcribed Document [facility] [place] [facility] [place] [address] ProviderYusuf MD [facility] [place] [address] Social History Tobacco Use [...] - Yusuf ProviderMD - 02/15/2019 1:26 PM SPOT MAN [facility], [place] [id number] FRANKY DEWITT :1945 Visit Time:02/05/2019 Your Visit [...] next Instructions From Your Care Team Rehabilitation: [facility] spinal cord unit/ / Discharge Summary: [phone] faxed [facility] Transportation: Car with family Follow up with Dr. Sue in 2 weeks. Follow up with Dr. Allen as recommended in 2-3 weeks. Discharge Follow Up Instructions: Follow-Up Appointments Follow Up with BRISEIDA SUE MD-GIBSON When Within 1 month Where: [address] [facility] [place] [address]- Medications What How Much When Instructions Next [...] ? Manage bowel and bladder problems. ? [place] with mental health problems. ? Manage pain. [...] 02/25/2003 Document Revised: 11/02/2016 Document Reviewed: 05/21/2014 tracx Interactive Patient Education ?? 2019 tracx Inc. Near-Syncope Near-syncope is when you suddenly [...] This can help with dizziness. ??? Take gjrh-kup-eiqincb and prescription medicines only as told by [...] 08/23/2008 Document Revised: 04/20/2017 Document Reviewed: 11/19/2015 ElseHemosphere Interactive Patient Education ?? 2019 tracx Inc. Weakness Weakness is a lack of [...] sleep you need each night. ??? Take ctln-elx-nolhxuc and prescription medicines only as told by [...] about working with a physical therapist or operations trainer to help you get stronger. ??? [...] 02/17/2009 Document Revised: 04/01/2016 Document Reviewed: 12/26/2015 tracx Interactive Patient Education ?? 2019 [employer]. Transverse Myelitis Transverse myelitis is a condition [...] may need to see a nervous systems design engineer (neurologist) to have tests, which may [...] Follow these instructions at home: ??? Take mpjz-ubo-qszcdyu and prescription medicines only as told by [...] 02/25/2003 Document Revised: 11/07/2016 Document Reviewed: 08/13/2015 tracx Interactive Patient Education ?? 2019 [employer]. prednisone (PRED lucas zelda Wallsos What is [...] may report side effects to FDA at 9-477-FAI-3674. What other drugs will affect prednisone? Sometimes [...] may affect prednisone. This includes prescription and uubs-rps-fafnitw medicines, vitamins, and herbal products. Not all [...] to ensure that the information provided by SGN (Social Gaming Network). ('Multum') is accurate, up-to-date, and complete, but no guarantee is made to that effect. Drug information contained herein may be time sensitive. H[employer]ue information has been compiled for use by healthcare practitioners and consumers in the [place] and therefore H[employer] does not warrant that uses outside of the [place] are appropriate, unless specifically indicated otherwise. MedAdherences drug information does not endorse drugs, diagnose patients or recommend therapy. MedAdherences drug information is an informational resource designed [...] effective or appropriate for any given patient. [facility] does not assume any responsibility for any aspect of healthcare administered with the aid of information [facility] provides. The information contained herein is not intended to cover all possible uses, directions, precautions, warnings, drug interactions, allergic reactions, or adverse effects. If you have questions about the drugs you are taking, check with your doctor, nurse or pharmacist. Copyright 6328-0322 [facility] PicturesCandid io. Version: 10.. Revision Date: 06/15/2018. Emergency Awareness [...] Assistance with quitting is available by contacting 1-396-BHTY-NOW. This is a free resource providing counseling, [...] range between ( 0.0 and 7.0 ) [place] #: 0.75 K/uL -- Normal range between ( 0.16 and 1.00 ) Eos #: 0.08 x10(3)/uL -- Normal range between ( 0.00 and 0.80 ) [place] %: 8.5 % -- Normal range between [...] RBC Morphology: Normal ANC #: 3 K/uL [place] Percent Man: 9 % -- Normal range [...] ) Urine Bilirubin Dipstick: Negative Urine Specific [place]: 1.020 -- Normal range between ( 1.005 [...] was given the opportunity to ask questions. Patient/Bladder Tier Name: Patient/Bladder Tier Signature: Relationship to Patient: Clinician/Hospital Bladder Tier Signature: Date: documented in this encounter Plan of Treatment Not on file documented as of this encounter Visit Diagnoses Not on filedocumented in this encounter
--- OUTSIDE RECORDS SUMMARY | 2024-11-19 09:56 | XMS_ITS | Encounter Summary ---
Author Organization [employer] ([place], [place], [place], [place]) Address [address] [place] [address] Care Team Providers Care Chairman Emeritus Name Role Phone Unavailable Primary Care Provider Unavailabl e Encounter Details Date Type Department Care Team (Late st Contact Info) Description 02/16/2019 Transcribed Document [facility] [place] [facility] [place] [address] ProviderYusuf MD [facility] [place] [address] Social History Tobacco Use Types [...] - Historical ProviderMD - 02/16/2019 7:49 AM MIDDLE SCHOOL BASEBALL COACH Discharge Summary, PT Entered On: 02/16/2019 7:50 [...] with a Rwx. She was D/C to [facility] for follow up rehab. ROBERT [...] ROBERT TINAJERO, PT - 02/16/2019 7:49 EST Gas Reverser Goals Mobility/Bed Mobility LTG PT Grid Goal [...] 02/16/2019 7:49 EST Electronically signed by Lillian [facility] Conversion Kst Operator Cerner at 07/07/2022 9:48 PM CDT documented in this encounter Plan of Treatment Not on file documented as of this encounter Visit Diagnoses Not on filedocumented in this encounter
--- OUTSIDE RECORDS SUMMARY | 2024-11-19 09:56 | XMS_ITS | Encounter Summary ---
Author Organization [employer] ([place], [place], [place], [place]) Address [address] [place] [address] Care Team Providers Care Hospital Account Manager Name Role Phone Unavailable Primary Care Provider Unavailabl e Encounter Details Date Type Department Care Team (Late st Contact Info) Description 02/07/2019 Transcribed Document [facility] Radiology [address] [place] [address] Anne Peters MD [address] [place] [address] [address] [place] [id number] Social History Tobacco Use Types Packs/Day Years [...] Dr. Johan Sue neurology [facility] Chief complaint bilateral upper and lower [...] At risk for sleep apnea / IMO [id number] / Confirmed, Active Problems (3) At risk [...] gallop, S1+ S2 No S3 or S4 [place].. Gastrointestinal: Soft, Non-tender, Non-distended, Normal bowel sounds. [...] (NOV ) Radiology Results (Last 48 hours) [id number] -- 02/05/2019 10:21 MRI Spine Cervical WO [...] cord from the cervicomedullary junction to the C4-F2ezsrh. There is mild enhancement of the cord. [...] broad-based posterior disc bulging at C4-C5. At C6-I8rxeuh is a central to left paracentral disc [...] FLUOROSCOPYHISTORY: Transverse myelitis.ATTENDING PHYSICIAN: Baljit Gee M.D.PHYSICIAN RADIOLOGY ADMINISTRATOR: JIMBO Luque-CPROCEDURE: After informed consent was obtained [...]
--- OUTSIDE RECORDS SUMMARY | 2024-11-19 09:56 | XMS_ITS | Encounter Summary ---
Author Organization [employer] ([place], [place], [place], [place]) Address [address] [place] [address] Care Team Providers Care Child Day Care Provider Name Role Phone Unavailable Primary Care Provider Unavailabl e Encounter Details Date Type Department Care Team (Late st Contact Info) Description 02/07/2019 Transcribed Document [facility] [place] [address] [place] [address] ProviderYusuf MD [facility] [place] [address] Social History Tobacco Use Types [...] - Historical ProviderMD - 02/07/2019 7:58 AM BEEF SPECIALIST Spiritual Care Short Form Entered On: [...]
--- OUTSIDE RECORDS SUMMARY | 2024-11-19 09:56 | XMS_ITS | Encounter Summary ---
Author Organization [employer] ([place], [place], [place], [place]) Address [address] [place] [address] Care Team Providers Care Plaster Lather Name Role Phone Unavailable Primary Care Provider Unavailabl e Encounter Details Date Type Department Care Team (Late st Contact Info) Description 02/08/2019 Transcribed Document [facility] [place] Family Medicine [facility] [place] [address] ProviderYusuf MD [facility] [place] [address] Social History Tobacco Use Types [...] - Historical ProviderMD - 02/08/2019 5:00 PM FRAMING MANAGER Chart Check - Review Order Profile [...]
--- OUTSIDE RECORDS SUMMARY | 2024-11-19 09:56 | XMS_ITS | Encounter Summary ---
Author Organization [employer] ([place], [place], [place], [place]) Address [address] [place] [address] Care Team Providers Care Building Surveyor Name Role Phone Unavailable Primary Care Provider Unavailabl e Encounter Details Date Type Department Care Team (Late st Contact Info) Description 02/07/2019 Transcribed Document [facility] [place] [facility] [place] [address] ProviderYusuf [place] [facility] [address] Social History Tobacco Use Types [...] - Historical ProviderMD - 02/07/2019 5:00 AM LINING MACHINE OPERATOR Chart Check - Review Order [...]
--- OUTSIDE RECORDS SUMMARY | 2024-11-19 09:56 | XMS_ITS | Encounter Summary ---
Author Organization [employer] ([place], [place], [place], [place]) Address [address] [place] [address] Care Team Providers Care Aircraft Rigging And Controls Mechanic Name Role Phone Unavailable Primary Care Provider Unavailabl e Encounter Details Date Type Department Care Team (Late st Contact Info) Description 02/08/2019 Transcribed Document [place] Family [facility] [place] [address] ProviderYusuf MD [facility] [place] [address] Social History Tobacco Use Types [...] - Historical ProviderMD - 02/08/2019 2:23 PM DIE ENGRAVER Patient: FRANKY SCOTT Age: 74 Years Sex: [...] overnight and is now wearing 02 by [place]. Psychiatric - patient received some IV Lorazepam overnight for anxiety . She denies any suicidality . Objective Vitals & Measurements T: 36.6 ??C TMIN: 36.3 ??C TMAX: 36.8 ??C HR: 83(Monitored) RR: 16 BP: 143/85 SpO2: 97% WT: 80 kg Physical Exam Patient lying comfortably in bed wearing 02 by [place]. Motor - 4/5 in both arms. 2/5 [...]
--- OUTSIDE RECORDS SUMMARY | 2024-11-19 09:57 | XMS_ITS | Encounter Summary ---
Author Organization [employer] ([place], [place], [place], [place]) Address [address] [place] [address] Care Team Providers Care Infantry Officer Name Role Phone Unavailable Primary Care Provider Unavailabl e Encounter Details Date Type Department Care Team (Late st Contact Info) Description 02/05/2019 Transcribed Document [facility] [place] [address] [place] [address] ProviderYusuf MD [facility] [place] [address] Social History Tobacco Use [...] - Historical ProviderMD - 02/05/2019 5:00 PM PAPERHANGER SUPERVISOR Chart Check - Review Order Profile Entered On: 02/05/2019 17:16 EST Performed On: 02/05/2019 17:00 EST by SAVANNA VARGAS RN Chart Check Powerplans Initiated/Discontinued as Appropriate : Yes All Active Orders Reviewed : Yes SAVANNA VARGAS RN - 02/05/2019 17:16 EST Electronically signed by Onel Snyder Conversion Pensionholder Information Clerk Cerner at 07/07/2022 9:58 PM CDT documented in this encounter Plan of Treatment Not on file documented as of this encounter Visit Diagnoses Not on filedocumented in this encounter
--- OUTSIDE RECORDS SUMMARY | 2024-11-19 09:57 | XMS_ITS | Encounter Summary ---
Author Organization [employer] ([place], [place], [place], [place]) Address [address] [place] [address] Care Team Providers Care Depositing Machine Operator Name Role Phone Unavailable Primary Care Provider Unavailabl e Encounter Details Date Type Department Care Team (Late st Contact Info) Description 02/06/2019 Transcribed Document [facility] [place] Medicine [facility] [place] [address] ProviderYusuf MD [facility] [place] [address] Social History Tobacco Use [...] - Historical ProviderMD - 02/06/2019 2:40 PM PRICE CHANGER Patient: FRANKY SCOTT Age: 74 years Sex: [...]
--- OUTSIDE RECORDS SUMMARY | 2024-11-19 09:57 | XMS_ITS | Encounter Summary ---
Author Organization [employer] ([place], [place], [place], [place]) Address [address] [place] [address] Care Team Providers Care Latex Thread Machine Operator Name Role Phone Unavailable Primary Care Provider Unavailabl e Encounter Details Date Type Department Care Team (Late st Contact Info) Description 02/06/[address] [facility] [place] Medicine [address] [place] [address] ProviderYusuf MD [facility] [place] [address] Social History Tobacco Use [...] - Historical ProviderMD - 02/06/2019 5:00 AM SITE ADMINISTRATOR Chart Check - Review Order Profile Entered On: 02/06/2019 4:09 EST Performed On: 02/06/2019 5:00 EST by Aicha Logan, RN Chart Check Powerplans Initiated/Discontinued as Appropriate : Yes All Active Orders Reviewed : Yes Aicha Logan RN - 02/06/2019 4:09 EST Electronically signed by Lillian [facility] Conversion Rate Analyst Cerner at 07/07/2022 9:53 PM CDT documented in this encounter Plan of Treatment Not on file documented as of this encounter Visit Diagnoses Not on filedocumented in this encounter
--- OUTSIDE RECORDS SUMMARY | 2024-11-19 09:57 | XMS_ITS | Encounter Summary ---
Author Organization [employer] ([place], [place], [place], [place]) Address [address] [place] [address] Care Team Providers Care Xerox Machine Operator Name Role Phone Unavailable Primary Care Provider Unavailabl e Encounter Details Date Type Department Care Team (Late st Contact Info) Description 02/06/2019 Transcribed Document [facility] [place] Rad[place] 1 [place] [address] Anne Peters MD [address] [place] [address] [address] [place] [id number] Social History Tobacco Use Types Packs/Day Years [...] At risk for sleep apnea / IMO [id number] / Confirmed, Active Problems (3) At risk [...] gallop, S1+ S2 No S3 or S4 [place].. Gastrointestinal: Soft, Non-tender, Non-distended, Normal bowel sounds. [...] (FEB 05) Radiology Results (Last 48 hours) [id number] -- 02/05/2019 10:21 MRI Spine Cervical WO [...] cord from the cervicomedullary junction to the C4-U4yhcyh. There is mild enhancement of the cord. [...] broad-based posterior disc bulging at C4-C5. At C6-R8gclef is a central to left paracentral disc [...]
--- OUTSIDE RECORDS SUMMARY | 2024-11-19 09:57 | XMS_ITS | Encounter Summary ---
Author Organization [employer] ([place], [place], [place], [place]) Address [address] [place] [address] Care Team Providers Care Web Application Developer Name Role Phone Unavailable Primary Care Provider Unavailabl e Encounter Details Date Type Department Care Team (Late st Contact Info) Description 02/05/2019 Transcribed Document [facility] [place] Medicine [facility] [place] [address] ProviderYusuf MD [facility] [place] [address] Social History Tobacco Use Types [...] - Historical ProviderMD - 02/05/2019 10:16 AM SPRAY DYER Admission History, Adult Entered On: 02/05/2019 11:36 [...] From : Patient, Spouse Primary Language : Occitan Preferred Communication Mode : Verbal Communication Barrier [...] Level : 46 or > High Risk [place] Fall Interventions : Adequate lighting, Assistive devices [...] Source : Measured Height Entry Format : [place] Height, Feet : 5 ft(Converted to: 152 cm, 60 Inch) Height, Inches : 5 Inch(Converted to: 0 ft 5 Inch, 12.70 cm) Clinical Height : 165.1 cm Weight Source : Bed scale Weight Entry Format : [place] Clinical Dosing Weight : 79.09 kg Weight, Pounds : 174 lb Body Surface Area (BSA) : 1.87 m2 Body Mass Index : 29 kg/m2 (HI) [place] Body Weight : 57 kg SAVANNA VARGAS [...] SAVANNA VARGAS RN - 02/05/2019 11:27 EST [place] Suicide Severity Rating Scale (C-SSRS) CSSRS Past [...]
--- OUTSIDE RECORDS SUMMARY | 2024-11-19 09:57 | XMS_ITS | Encounter Summary ---
Author Organization [employer] ([place], [place], [place], [place]) Address [address] [place] [address] Care Team Providers Care Drug Purchaser Name Role Phone Unavailable Primary Care Provider Unavailabl e Encounter Details Date Type Department Care Team (Late st Contact Info) Description 02/05/2019 Transcribed Document [facility] [place] [facility] [place] [address] ProviderYusuf MD [facility] [place] [address] Social History Tobacco Use Types [...] - Historical ProviderMD - 02/05/2019 10:38 AM OFFAL SEPARATOR Evaluation, Occupational Therapy Entered On: 02/06/2019 15:17 [...] IVANIA BIRD OTR/Leeann 02/06/2019 15:12 EST Hand Laboratory Technical Specialist Test : Bilateral cable splicer assistant strength WFL IVANIA BIRD OTR/Leeann 02/06/2019 15:12 [...] activities IVANIA BIRD OTR/Leeann 02/06/2019 15:12 EST Specialist Physicians Goals, OT Grooming LTG Grid Goal #1 [...]
--- OUTSIDE RECORDS SUMMARY | 2024-11-19 09:57 | XMS_ITS | Encounter Summary ---
Author Organization [employer] ([place], [place], [place], [place]) Address [address] [place] [address] Care Team Providers Care Clinical Product Manager Name Role Phone Unavailable Primary Care Provider Unavailabl e Encounter Details Date Type Department Care Team (Late st Contact Info) Description 02/08/2019 Transcribed Document [facility] [place] [address] [place] [address] ProviderYusuf MD [facility] [address] Social History Tobacco [...] - Historical ProviderMD - 02/08/2019 12:58 AM BRASS WIND INSTRUMENTS TUBE BENDER Event Note Entered On: 02/08/2019 1:00 EST [...]
--- OUTSIDE RECORDS SUMMARY | 2024-11-19 09:57 | XMS_ITS | Encounter Summary ---
Author Organization [employer] ([place], [place], [place], [place]) Address [address] [place] [address] Care Team Providers Care Montessori Program Director Name Role Phone Unavailable Primary Care Provider Unavailabl e Encounter Details Date Type Department Care Team (Late st Contact Info) Description 02/06/2019 Transcribed Document [facility] [place] [facility] [place] [address] ProviderYusuf MD [facility] [place] [address] Social History Tobacco Use Types [...] - Historical ProviderMD - 02/06/2019 2:00 AM POURER METAL Thin Film Technician Details Entered On: 02/06/2019 1:49 EST Performed [...]
--- OUTSIDE RECORDS SUMMARY | 2024-11-19 09:57 | XMS_ITS | Encounter Summary ---
Author Organization [employer] ([place], [place], [place], [place]) Address [address] [place] [address] Care Team Providers Care Automatic Thread Winder Name Role Phone Unavailable Primary Care Provider Unavailabl e Encounter Details Date Type Department Care Team (Late st Contact Info) Description 02/09/2019 Transcribed Document [facility] [place] Family Medicine [facility] [place] [address] ProviderYusuf MD [facility] [place] [address] Social History Tobacco Use [...] - Historical ProviderMD - 02/09/2019 5:08 PM INSPECTOR HANDBAG FRAMES Patient: FRANKY SCOTT Age: 74 Years Sex: [...]
--- OUTSIDE RECORDS SUMMARY | 2024-11-19 09:57 | XMS_ITS | Encounter Summary ---
Author Organization [employer] ([place], [place], [place], [place]) Address [address] [place] [address] Care Team Providers Care Paper Steamer Name Role Phone Unavailable Primary Care Provider Unavailabl e Encounter Details Date Type Department Care Team (Late st Contact Info) Description 02/06/2019 Transcribed Document [facility] [place] [address] [place] [address] ProviderYusuf MD [facility] [place] [address] Social History Tobacco Use Types [...] - Historical ProviderMD - 02/06/2019 5:00 PM TRAFFIC LIEUTENANT Chart Check - Review Order Profile Entered On: 02/06/2019 15:39 EST Performed On: 02/06/2019 17:00 EST by ROLY MEDEIROS RN Chart Check Powerplans Initiated/Discontinued as Appropriate : Yes All Active Orders Reviewed : Yes ROLY MEDEIROS RN - 02/06/2019 15:38 EST Electronically signed by Onel Snyder Conversion Agricultural Equipment Operator Cerner at 07/07/2022 10:02 PM CDT documented in this encounter Plan of Treatment Not on file documented as of this encounter Visit Diagnoses Not on filedocumented in this encounter
--- OUTSIDE RECORDS SUMMARY | 2024-11-19 09:57 | XMS_ITS | Encounter Summary ---
Author Organization [employer] ([place], [place], [place], [place]) Address [address] [place] [address] Care Team Providers Care Archival Records Clerk Name Role Phone Unavailable Primary Care Provider Unavailabl e Encounter Details Date Type Department Care Team (Late st Contact Info) Description 02/05/2019 Transcribed Document [facility] [place] [facility] [address] ProviderYusuf MD [facility] [place] [address] Social History Tobacco Use Types [...] - Yusuf ProviderMD - 02/05/2019 10:39 AM DICE TABLE OPERATOR Swallow Evaluation Entered On: 02/05/2019 12:20 EST Performed On: 02/05/2019 12:16 EST by KENNA KIM MESSAGE BROKER DEVELOPER General Information Visit Type, MESSAGE BROKER DEVELOPER : Initial evaluation KENNA KIM SLP - 02/05/2019 12:16 EST Patient Orders : Consult to Speech Language Pathology for Swallow Eval -111 Start: 02/05/19 10:39:00 EST, Routine, For Swallow Eval and Treat - BASHIR RAYMOND MD-INT Admission Date : Admission Date/Time: 02/05/19 10:21:00 KENNA KIM, ASHER - 02/05/2019 12:21 EST Medical Chart Reviewed, MESSAGE BROKER DEVELOPER : Yes KENNA KIM SLP - 02/05/2019 12:16 EST Personal Devices : Personal Devices Glasses Assistive Devices : Assistive Devices No Devices Recorded Active Diagnoses : 02/05/2019 12:00 Disease of spinal cord, unspecified KENNA KIM SLP - 02/05/2019 12:21 EST Therapy Diagnosis, MESSAGE BROKER DEVELOPER : normal oropharyngeal skills Previous Swallow Precautions : no previous ST in EMR Diet/Intake Prior to Current Admission : reg/thin Diet/Intake During Current Admission : reg/thin Intubation Comment, MESSAGE BROKER DEVELOPER : n/a KENNA KIM SLP - 02/05/2019 [...] 12:16 EST General Status Patient Received Status, MESSAGE BROKER DEVELOPER : Long sitting in bed Patient Left Status, MESSAGE BROKER DEVELOPER : Long sitting in bed KENNA KIM [...] Oral Mechanism for Daily Living : Intact MESSAGE BROKER DEVELOPER Cough : Strong Facial Appearance: : Symmetrical [...] these records, Dr. Brunson sent her to [facility]. ST is asked to see [...] - 02/05/2019 12:21 EST Therapy Indication Assessment MESSAGE BROKER DEVELOPER Indicated : No MESSAGE BROKER DEVELOPER Not Indicated : At prior level of function KENNA KIM SLP - 02/05/2019 12:21 EST Education Barriers To Learning : None evident Individuals Taught : Patient, Spouse KENNA KIM SLP - 02/05/2019 12:21 EST MESSAGE BROKER DEVELOPER Education Assessment Grid 1 Aspiration : Verbalizes understanding Diet Recommendation : Verbalizes understanding KENNA KIM SLP - 02/05/2019 12:21 EST [place] MESSAGE BROKER DEVELOPER Charges Evaluation Swallowing Function : 1 KENNA KIM, MESSAGE BROKER DEVELOPER - 02/05/2019 12:21 EST Anticipated Discharge Needs, MESSAGE BROKER DEVELOPER Anticipated Discharge to : Home, independently, Home, with home health Recommend Continued Therapy at Discharge : No KENNA KIM, ASHER - 02/05/2019 12:21 EST Electronically signed by Lillian [facility] Conversion Furniture Packer Cerner at 07/07/2022 10:01 PM CDT documented in this encounter Plan of Treatment Not on file documented as of this encounter Visit Diagnoses Not on filedocumented in this encounter
--- OUTSIDE RECORDS SUMMARY | 2024-11-19 09:57 | XMS_ITS | Encounter Summary ---
Author Organization [employer] ([place], [place], [place], [place]) Address [address] [place] [address] Care Team Providers Care Oil Recovery Unit Operator Name Role Phone Unavailable Primary Care Provider Unavailabl e Encounter Details Date Type Department Care Team (Late st Contact Info) Description 02/06/2019 Transcribed Document [facility] [place] [facility] [place] [address] ProviderYusuf MD [facility] [place] [address] Social History Tobacco [...] - Historical ProviderMD - 02/06/2019 9:20 AM INSULATION SUPERVISOR UM Authorization Entered On: 02/06/2019 9:20 EST Performed On: 02/06/2019 9:20 EST by VALENTINA GOODE Rn-Utilization Review Primary Insurance Authorization Authorization and Policy Numbers : Insurance 1 Health Plan: MEDICARE Policy Number: [id number] Authorization Number: Insurance 2 Health Plan: [employer] Policy Number: [id number] Authorization Number: Insurance Primary Name : MEDICARE Policy Number: [id number] [place] [employer] [place] Policy Number: [id number] Historical Authorization Comments-Primary : No Authorization Comments Found VALENTINA GOODE Rn-Utilization Review - 02/06/2019 9:20 EST Electronically signed by Lillian [facility] Conversion Terminal Operations Supervisor Cerner at 07/07/2022 9:58 PM CDT documented in this encounter Plan of Treatment Not on file documented as of this encounter Visit Diagnoses Not on filedocumented in this encounter
--- OUTSIDE RECORDS SUMMARY | 2024-11-19 09:57 | XMS_ITS | Encounter Summary ---
Author Organization [employer] ([place], [place], [place], [place]) Address [address] [place] [address] Care Team Providers Care Development Consultant Name Role Phone Unavailable Primary Care Provider Unavailabl e Encounter Details Date Type Department Care Team (Late st Contact Info) Description 02/06/2019 Transcribed Document [facility] Radiology [address] [place] [address] Anne Peters MD [address] [place] [address] [address] [place] [id number] Social History Tobacco Use Types Packs/Day Years [...] discharge Referring physician Dr. Johan Sue neurology [facility] Chief complaint bilateral upper and [...] At risk for sleep apnea / IMO [id number] / Confirmed, Active Problems (3) At risk [...] gallop, S1+ S2 No S3 or S4 [place].. Gastrointestinal: Soft, Non-tender, Non-distended, Normal bowel sounds. [...] (FEB 05) Radiology Results (Last 48 hours) [id number] -- 02/05/2019 10:21 MRI Spine Cervical WO [...] cord from the cervicomedullary junction to the C4-U9uzoxd. There is mild enhancement of the cord. [...] broad-based posterior disc bulging at C4-C5. At C6-B2misky is a central to left paracentral disc [...]
--- OUTSIDE RECORDS SUMMARY | 2024-11-19 09:57 | XMS_ITS | Patient Health Record ---
Author Organization [facility] Address [address] [facility] [address] [place] [id number] Care Team Providers Care Land Development Project Manager Name Role Phone Jensen Santiago Primary Care Provider [phone] Maryanne Malik Unavailable [phone] Allergies Allergen (clinical drug ingredient) Drug/Non Drug [...] Interpretation:sensitive Performing Lab: Notes/Report: Test performed by [facility] [facility]ly [facility] , [address], [place] [address] Danilo Duran MD, Lidar Analyst CLIA: [id number] Specimen Source Urine - Cath Culture, Urine [...] Interpretation: Performing Lab: Notes/Report: Test performed by [email or web address] [address] , [address], [place] [address] Danilo Duran MD, Lidar Analyst CLIA: [id number] Specimen Source Urine - Cath Culture, Urine [...] 1.010 Ketone neg Bili neg Gluc neg Urinalysis - Inhouse Reviewed date:03/10/2024 11:06:10 AM Interpretation: Performing Lab: Notes/Report: Color/Clarity orange Leuk 3+ Nitrite pos Urobili 16 Protein 2+ pH 5.0 Blood trace-intact Sp. Gr. 1.020 Ketone trace Bili neg Gluc trace P-Culture, Urine Reviewed date:03/13/2024 10:55:09 AM Interpretation:Klebsiella pneumoniae Performing Lab: Notes/Report: Test performed by [employer] [employer] [address] [place] [address] , [address], [place] [address] Danilo Duran MD, Lidar Analyst CLIA: [id number] Specimen Source Urine - Void Culture, Urine [...] S=SUSCEPTIBLE I=INTERMEDIATE R=RESISTANT Urinalysis - Inhouse Reviewed date:05/18/2024 11:19:11 AM Interpretation: Performing Lab: Notes/Report: Color/Clarity yellow/clear Leuk Trace Nitrite Neg Urobili 3.2 Protein Neg pH 6.0 Blood Neg Sp. Gr. 1.015 Ketone Neg Bili Neg Gluc Neg Urinalysis - Inhouse Reviewed date:05/29/2024 09:16:02 [...] 100 - 400 Urinalysis - Inhouse Reviewed date:06/12/2024 02:41:39 PM Interpretation: Performing Lab: Notes/Report: Color/Clarity yellow/cloudy Leuk 2+ Nitrite neg Urobili 3.2 Protein 1+ pH 5.5 Blood trace Sp. Gr. 1.015 Ketone neg Bili neg Gluc neg P-Culture, Urine Reviewed date:06/15/2024 01:26:54 PM Interpretation: Performing Lab: Notes/Report: Test performed by [employer], [address] , [address], [place] [address] Danilo Duran MD, Lidar Analyst JENN: [id number] Specimen Source Urine - Void Culture, Urine [...] 1.020 Ketone Trace Bili Neg Gluc Neg Mammogram Reviewed date:09/19/2024 01:22:46 PM Interpretation:Negative Performing Lab: Notes/Report: Negative result negative TEN-UTI panel Reviewed date:05/30/2024 10:17:15 AM Interpretation:Klebsiella pneumoniae Performing Lab: Notes/Report: Klebsiella pneumoniae Covid test (in house) Reviewed date:12/09/2023 10:22:50 AM Interpretation: Performing Lab: Notes/Report: Result: Neg Urinalysis - Inhouse Reviewed date:03/16/2024 03:47:47 PM Interpretation: Performing Lab: Notes/Report: Color/Clarity ark yellow Leuk 3+ Nitrite pos Urobili 3.2 Protein 2+ pH 6.0 Blood 1+ Sp. Gr. 1.020 Ketone eng Bili neg Gluc neg Urinalysis - Inhouse Reviewed date:07/10/2024 05:16:27 PM Interpretation: Performing Lab: Notes/Report: Color/Clarity yellow/cloudy Leuk 3+ Nitrite Pos Urobili 3.2 Protein 1+ pH 6.0 Blood 1+ Sp. Gr. 1.015 Ketone Neg Bili Neg Gluc Neg H-BMP (Not yet reviewed by munira ellis) Interpretation: Performing Lab: Notes/Report: NA 139 136-145 mmol/L K 3.9 3.5-5.1 mmoL/L CL 105 98-107 mmol/L CO2 28 22.0-30.0 mmol/L GAP 9.9 5-15 mEq/L BUN 21 7-17 mg/dl CREATT 1.00 0.52-1.04 mg/dl GFRAA 65 >60 ML/MIN EGFR 54 >60 ml/min GLU 94 74-100 mg/dl CA 9.7 8.4-10.2 mg/dl TEN-UTI panel Reviewed date:07/13/2024 04:21:06 PM Interpretation:E. Coli Performing Lab: Notes/Report: E. Coli TEN-UTI panel Reviewed date:05/21/2024 02:41:27 PM Interpretation:Negative Performing Lab: Notes/Report: Negative TEN-UTI panel Reviewed date:03/19/2024 04:07:38 PM Interpretation:Abnormal Performing Lab: Notes/Report: Abnormal TEN-UTI panel Reviewed date:12/12/2023 12:59:00 PM Interpretation:Negative Performing Lab: Notes/Report: Negative TEN-UTI panel Reviewed date:10/19/2024 08:23:33 AM Interpretation:Klebsiella pneumoniae Performing Lab: Notes/Report: Klebsiella pneumoniae TEN-UTI panel Reviewed date:01/11/2024 02:47:23 PM Interpretation:Abnormal Performing Lab: Notes/Report: Abnormal Urinalysis - Inhouse Reviewed date:12/09/2023 10:22:34 AM Interpretation: Performing Lab: Notes/Report: Color/Clarity yellow/cloudy Leuk 1+ Nitrite neg Urobili 3.2 Protein neg pH 5.5 Blood neg Sp. Gr. 1.015 Ketone neg Bili neg Gluc neg Urinalysis - Inhouse Reviewed date:03/23/2024 03:23:26 PM [...] Coli Performing Lab: Notes/Report: Test performed by [employer] [address] [place] [address] , [address], [place] [address] Danilo Duran MD, Lidar Analyst CLIA: [id number] Specimen Source Urine - Void Culture, Urine [...] S Trimeth/Sulfa S ___ S=SUSCEPTIBLE I=INTERMEDIATE R=RESISTANT Reason For Referral Diagnosis 1 Neurogenic bladder ( N31.9) [facility] Referring Provider First Name Jensen [facility]erring Provider Last Name Pamela [facility] Provider Adam Kingston Referred Provider Specialty Urology General Notes Ninfa Correa 05/18/19 11:15:42 AM > faxed referral to 's office Referral Priority Routine Reason [facility] Diagnosis 1 Chronic UTI (N39.0) Diagnosis 2 Urinary retention (R 33.9) Diagnosis 3 Urinary incontinence in female (R32) Diagnosis 4 Bladder spasms (N32. 89) Referral Organization [facility] Referring Provider First Name Jensen Referring Provider Last Name Pamela Referring Provider [facility] ctice Referred Provider Specialty Urology General Notes Ninfa Correa 2024 10:53:56 AM > faxed referral to [facility] Referral Priority Routine Diagnosis 1 Urinary retention (R 33.9) Diagnosis 2 Chronic UTI (N39.0) Diagnosis 3 Other urinary incont inence (N39.498) Diagnosis 4 Neurogenic bladder ( N31.9) Referral Organization [facility] Referring Provider First Name Jensen Referring Provider Last Name Pamela Referring Provider [facility] ctice Referred Provider [facility] [place] General Notes Ninfa Correa 2024 08:45:29 AM > faxed referral to [facility] Urogynecology Referral Priority Routine Medications Medication [...] 05/11/2018 Administered xFlu shot- 6months-36 months of zsh-[id number]-[id number]-trivalent Unknown 02/08/2016 Administered xFluzone (6mos and older)-trivalent IM Intramuscular 02/05/2013 Administered xFluzone High Dose-private (65yr&older) IM Intramuscular 02/20/2014 Administered Problems Problem Type SNOMED Code ICD Code Onset Dates Problem Status W/U Status Risk Notes Problem Vitamin D deficiency (90574361) Vitamin D deficiency (E55.9) Active confirmed Problem Essential hypertension (19840899) Essential hypertension (I10) Active confirmed Problem Anxiety (07877510) Anxiety (F41.9) Active confi rmed Problem Urinary retention (978414282) Urinary retention (R33.9) Active confirmed Problem Osteopenia (702544198) Osteopenia (M85.80) Active confirmed Problem Neurogenic bladder (764134060) Neurogenic bladder (N31.9) Active confirmed Problem Overactive urinary bladder (disorder) (209188933) OAB (overactive bladder) (N32.81) Active confirmed Problem Mixed hyperlipidemia (003149969) Mixed hyperlipidemia (E78.2) Active confirmed Problem Urge incontinence of urine (91741951) Urge incontinence (N39.41) Active confirmed Problem Incontinence of feces (63799456) Full incontinence of feces (R15.9) Active confirmed Problem History of polyp of colon (situation) (526193348) Hx of colonic polyps (Z86.010) Active confirmed Problem Neuropathy (980936777) Neuropathy (G62.9) Active confirmed Problem Ataxia (36381084) Ataxia (R27.0) Active confirm ed Problem Claudication (10934471) Claudication (I73.9) Active confirmed Problem Urinary tract infectious disease (92150424) Chronic UTI (N39.0) Active confirmed Problem Body mass index 30.00 to 34.99 (703604530941808) BMI 31.0-31.9,adult (Z68.31) Active confirmed Problem Body mass index 30.00 to 34.99 (666480892185920) BMI 34.0-34.9,adult (Z68.34) Active confirmed Problem Spasm of bladder (331577338) Bladder spasms (N32.89) Active confirmed Problem Urge incontinence of urine (25894019) Urge incontinence of urine (N39.41) Active confirmed Problem Raynaud's disease (776097653) Raynaud's disease without gangrene (I73.00) Active confirmed Problem Obesity (727886004) Non morbid obesity (E66.9) Active confirmed Problem Arthritis of left knee (6115948001851684) Arthritis of left knee (M17.12) Active confirmed Problem Urinary incontinence (735689786) Other urinary incontinence (N39.498) Active confirmed Problem Seasonal allergic rhinitis (447377414) Seasonal allergic rhinitis, unspecified trigger (J30.2) Active confirmed Problem Cervical myelopathy (347628906) Cervical myelopathy (G95.9) Active confirmed Problem 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 Problem 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 Problem Gastroesophageal reflux disease (853431170) Gastroesophageal reflux disease, unspecified whether esophagitis present (K21.9) Active confirmed Problem Chronic kidney disease stage 3 (disorder) (960184330) Stage 3 chronic kidney disease, unspecified whether stage 3a or 3b CKD (N18.30) Active confirmed Problem Urinary incontinence (806699193) Urinary incontinence in female (R32) Active confirmed Problem Herniation of rectum into vagina (615828159) Rectocele, female (N81.6) Active confirmed Vital Signs Heart Rate 107 /min 11/13/2024 Blood pressure diastolic 70 mm Hg 11/13/2024 Height 65 in 11/13/2024 Blood pressure systolic 132 mm Hg 11/13/2024 Weight 204.4 lbs 11/13/2024 BMI 34.01 kg/m2 11/13/2024 Encounters Encounter Location Date Provider Diagnosis [facility] [address] [place] [id number] 01/11/2024 Jensen Saxon [facility] [address] [place], [place] [id number] 01/18/2024 Jensen Saxon [facility] [address] [place], [place] [id number] 02/24/2024 Jensen Saxon Neuropathy G62.9 [facility] [address] [place] [id number] 03/13/2024 Jensen Saxon [facility] [address] [place], [place] [id number] 03/19/2024 Jensen Saxon [facility] [address] [place] [id number] 06/11/2024 Jensen Saxon [facility] [address] [place] [id number] 07/16/2024 Jensen Saxon [facility] [address] [place] [id number] 07/23/2024 Jensen Saxon [facility] [address] [place] [id number] 08/28/2024 Jensen Saxon Chronic UTI N39.0 [facility] [address] [place], [place] [id number] 09/03/2024 Jensen Saxon Neuropathy G62.9 [facility] [address] [place], [place] [id number] 09/03/2024 Jensen Saxon Screening for breast cancer Z12.39 and Screening for osteoporosis Z13.820 [facility] [address] [place] [id number] 09/07/2024 Jensen Saxon Urinary retention R3 3.9 ; Other urinary incontinence N39.498 and Chronic UTI N39.0 [facility] [address] [place], [place] [id number] 10/19/2024 Jensen Saxon [facility] [address] [place] [id number] 10/23/2024 Jensen Saxon [facility] [address] [place] [id number] 10/24/2024 Jensen Saxon [facility] [address] [place] [id number] 11/16/2024 Jensen Saxon Acute UTI N39.0 [facility] [address] [facility] [place] [id number] 01/02/2024 Jensen Saxon Pyuria R82.81 and Frequency of urination R35.0 [facility] [address] [place], [place] [id number] 03/23/2024 Jensen Saxon Recurrent UTI N39.0 and Urge incontinence N39.41 [facility] [address] [facility] [address] [place], [place] [id number] 05/18/2024 Jensen Saxon Urinary tract infect ion, site not specified N39.0 ; Unspecified Escherichia coli [E. coli] as the cause of diseases classified elsewhere B96.20 ; Neurogenic bladder N31.9 and Acute deep vein thrombosis (DVT) of left peroneal vein I82.452 [facility] [address] [facility] [address] [place] [id number] 05/28/2024 Jensen Saxon Chronic UTI N39.0 an d Open wound of right lower extremity, initial encounter S81.801A [facility] [address] [facility] [address] [place] [id number] 06/15/2024 Jensen Saxon Cystitis, unspecifie d without hematuria N30.90 and Klebsiella pneumoniae [K. pneumoniae] as the cause of diseases classified elsewhere B96.1 [facility] [address] [facility] [address] [place], [place] [id number] 07/10/2024 Jensen Saxon Acute cystitis witho ut hematuria N30.00 ; Gastroesophageal reflux disease, unspecified whether esophagitis present K21.9 and BMI 34.0-34.9,adult Z68.34 [facility] [address] [facility] [address] [place] [id number] 10/17/2024 Jensen Saxon Chronic UTI N39.0 ; Pain in left knee M25.562 and Non morbid obesity E66.9 [facility] [address] [place] [id number] 11/05/2024 Jensen Saxon Chronic UTI N39.0 [facility] [address] [place] [id number] 11/13/2024 Jensen Saxon Chronic UTI N39.0 ; Urinary retention R33.9 and Rectocele, female N81.6 [facility] [address] [place], [place] [id number] 12/08/2023 Jensen Saxon Acute cough R05.1 ; Urinary tract infection without hematuria, site unspecified N39.0 ; Heartburn R12 ; Colon cancer screening Z12.11 and Hx of colonic polyps Z86.010 [facility] [address] [place] [id number] 03/10/2024 Jensen Saxon Urinary tract infect ion without hematuria, site unspecified N39.0 [facility] [address] [place], [place] [id number] 06/11/2024 Maryanne Malik UTI (lower urinary t ract infection) N39.0 [facility] [address] [place] [id number] 08/24/2024 Jensen Saxon Pelvic pain R10.2 ; Chronic UTI N39.0 and Cook catheter in place Z92.89 [facility] [address] [place], [place] [id number] 03/16/2024 Jensen Saxon Acute UTI N39.0 and Exposure to the flu Z20.828 [facility] [address] [place] [id number] 07/16/2024 Jensen Saxon Chronic UTI N39.0 [facility] [address] [place] [id number] 2024 Jensen Saxon [facility] [address] [place] [id number] 07/18/2024 Jensen Santiago Chronic UTI N39.0 ; Urinary retention R33.9 ; Urinary incontinence in female R32 ; Bladder spasms N32.89 ; Dermatopolymyositis M33.90 and BMI 34.0-34.9,adult Z68.34 Assessments Encounter Date Diagnosis (ICD Code) Assessment Notes Treatment Notes Treatment Clinical Notes Section Notes 09/07/2024 Other urinary incontinence (ICD-10 - N39.498) 08/28/2024 Chronic UTI (ICD-10 - N39.0) 08/24/2024 Chronic UTI (ICD-10 - N39.0) Patient to follow up with [facility] urology next week 08/24/2024 Pelvic pain (ICD-10 - R10.2) 07/10/2024 Gastroesophageal reflux disease, unspecified whether esophagitis present (ICD-10 - K21.9) 07/16/2024 Chronic UTI (ICD-10 - N39.0) 07/18/2024 Urinary retention (ICD-10 - R33.9) 07/18/2024 Chronic UTI (ICD-10 - N39.0) 09/03/2024 Neuropathy (ICD-10 - G62.9) 09/03/2024 Screening for breast cancer (ICD-10 - Z12.39) 11/05/2024 Chronic UTI (ICD-10 - N39.0) 11/13/2024 Urinary retention (ICD-10 - R33.9) Spoke to Dr. Kingston. He recommends awaiting culture and then treat accordingly. Patient may need evaluation for a suprapubic catheter 11/13/2024 Chronic UTI (ICD-10 - N39.0) 10/17/2024 Pain in left knee (ICD-10 - M25.562) 10/17/2024 Chronic UTI (ICD-10 - N39.0) 11/16/2024 Acute UTI (ICD-10 - N39.0) 09/07/2024 Urinary retention (ICD-10 - R33.9) 12/08/2023 Acute cough (ICD-10 - R05.1) 01/02/2024 [...] of diseases classified elsewhere (ICD-10 - B96.20) 06/11/2024 UTI (lower urinary tract infection) (ICD-10 - N39.0) good water intake; UTI prevention discussed 06/15/2024 Klebsiella pneumonia e [K. pneumoniae] as the cause of diseases classified elsewhere (ICD-10 - B96.1) Culture shows multiple drug resistant organism 06/15/2024 Cystitis, unspecifie d without hematuria (ICD-10 - N30.90) 07/10/2024 Acute cystitis witho ut hematuria (ICD-10 - N30.00) 05/28/2024 Chronic UTI (ICD-10 - N39.0) 05/28/2024 Open wound of right lower extremity, initial encounter (ICD-10 - S81.801A) 07/18/2024 Urinary incontinence in female (ICD-10 - R32) 07/10/2024 BMI 34.0-34.9,adult (ICD-10 - Z68.34) 05/18/2024 Neurogenic bladder (ICD-10 - N31.9) 12/08/2023 Heartburn (ICD-10 - R12) 09/07/2024 Chronic UTI (ICD-10 - N39.0) 10/17/2024 Non morbid obesity (ICD-10 - E66.9) Discussed starting [place]ila 11/13/2024 Rectocele, female (ICD-10 - N81.6) Doubt this of any significance to patient's current issues 09/03/2024 Screening for osteoporosis (ICD-10 - Z13.820) 08/24/[address] (ICD-10 - Z92.89) Cook catheter removed in office today. Patient had immediate pain relief. She will use catheters she has at home for intermittent bladder drainage 07/18/2024 Bladder spasms (ICD- 10 - N32.89) 05/18/2024 Acute deep vein thrombosis (DVT) of left peroneal vein (ICD-10 - I82.452) 12/08/2023 Colon cancer screeni ng (ICD-10 - Z12.11) 12/08/2023 Hx of colonic polyps (ICD-10 - [...] Date MEDICARE PART B [address] [address] [place] [address] [id number] Kelli Scott Self - patient is the insured [employer] [address] [address] [place] [id number] Kelli Scott Self - patient is the [...]
--- OUTSIDE RECORDS SUMMARY | 2024-11-19 09:57 | XMS_ITS | Encounter Summary ---
Author Organization [employer] ([place], [place], [place], [place]) Address [address] [place] [address] Care Team Providers Care Pulp Drier Firer Name Role Phone Unavailable Primary Care Provider Unavailabl e Encounter Details Date Type Department Care Team (Late st Contact Info) Description 02/05/2019 Transcribed Document [facility] Family Medicine [facility] [place] [address] ProviderYusuf MD [facility] [place] [address] Social History Tobacco Use Types [...] - Historical ProviderMD - 02/05/2019 6:08 PM HEAVY MEDIA OPERATOR DATE OF CONSULTATION: 02/05/2019 HISTORY OF [...] , she had to attend a in [facility] where she and her spent a lot of time walking around [facility] and during that walking trip around [facility], when she tried to get her legs into an SUV, she noticed that both of her legs were weak and she was having trouble lifting her legs up to get into the SUV. When she returned back to [place] in late December, she received another steroid [...] even went to an emergency room in [facility] recently and they let her go [...] 4. Hydrochlorothiazide. 5. Losartan. 6. Biotin. 7. Climax-3. 8. Potassium. 9. Zoloft. 10. Coenzyme Q. [...] years. SOCIAL HISTORY: The patient lives in [place] with her . She has three children. [...] through XII are intact. Coordination shows intact ioguxg-df-uubw and wopf-dy-faib. Reflexes are hyperactive throughout at 2 to 3+ with bilaterally upgoing toes. Sensory exam shows intact joint position in both feet. Gait was not tested. LABORATORY DATA: The patient had an MRI scan of her brain done at [facility] on February 02 as being read, [...] her . I will follow with you. /[id number] MD ROSIO Leone/ERASMO / ROSIO / MODL /[id number] Electronically signed by Onel Snyder Conversion Director Of Sustainability Programs Cerner at 07/07/2022 9:59 PM CDT documented in this encounter Plan of Treatment Not on file documented as of this encounter Visit Diagnoses Not on filedocumented in this encounter
--- OUTSIDE RECORDS SUMMARY | 2024-11-19 09:57 | XMS_ITS | Encounter Summary ---
Author Organization [employer] ([place], [place], [place], [place]) Address [address] [place] [address] Care Team Providers Care Shipping Track Supervisor Name Role Phone Unavailable Primary Care Provider Unavailabl e Encounter Details Date Type Department Care Team (Late st Contact Info) Description 02/05/2019 Transcribed Document [facility] Family Medicine [facility] [place] [address] ProviderYusuf MD [facility] [place] [address] Social History Tobacco Use Types [...] - Yusuf ProviderMD - 02/05/2019 11:36 AM HOSPITALITY AMBASSADOR Provider Notification Entered On: 02/06/2019 14:55 EST Performed On: 02/06/2019 11:36 EST by ROLY MEDEIROS RN Provider Notification Provider Notified of Concerns/Results : Change in status ROLY MEDEIROS RN - 02/06/2019 14:55 EST documented in this encounter Plan of Treatment Not on file documented as of this encounter Visit Diagnoses Not on filedocumented in this encounter
--- OUTSIDE RECORDS SUMMARY | 2024-11-19 09:57 | XMS_ITS | Encounter Summary ---
Author Organization [employer] ([place], [place], [place], [place]) Address [address] [place] [address] Care Team Providers Care Payment Specialist Name Role Phone Unavailable Primary Care Provider Unavailabl e Encounter Details Date Type Department Care Team (Late st Contact Info) Description 02/06/2019 Transcribed Document [facility] Family Medicine [facility] [place] [address] ProviderYusuf MD [facility] [place] [address] Social History Tobacco Use Types [...] - Historical ProviderMD - 02/06/2019 3:39 PM OUTSIDE PLANT CABLE ENGINEER Patient: FRANKY SCOTT Age: 74 Years Sex: [...] Meningitis/Encephalitis Panel Myelin Basic Protein, Sendout Pathology Non-Meter Tester Request RPR Rapid Plasma Reagin Sequential Compression [...] Tab, Oral, Daily Electronically signed by Lillian, [facility] Conversion Training Associate Cerner at 07/07/2022 9:59 PM CDT documented in this encounter Plan of Treatment Not on file documented as of this encounter Visit Diagnoses Not on filedocumented in this encounter
--- OUTSIDE RECORDS SUMMARY | 2024-11-19 09:57 | XMS_ITS | Encounter Summary ---
Author Organization [employer] ([place], [place], [place], [place]) Address [address] [place] [address] Care Team Providers Care Embroidery Operator Name Role Phone Unavailable Primary Care Provider Unavailabl e Encounter Details Date Type Department Care Team (Late st Contact Info) Description 02/05/2019 Transcribed Document [facility] Radiology [address] [place] [address] Anne Peters MD [address] [place] [address] [place] [id number] Social History Tobacco Use Types Packs/Day Years [...] Q4H, PRN: Nausea heparin: 5,000 Units, SubCutaneous, V15MNpi hydrALAZINE: 5 mg, IV Push, Q4H, PRN: Hypertension morphine: 2 mg, IV Push, Q2H, PRN: Pain (Severe 7-10), No qualifying data available , Medications (8) Active Scheduled: (2) famotidine 20 mg tab 20 mg 1 Tab, Oral, Q12H heparin 5,000 Units, SubCutaneous, [id number] Continuous: (0) PRN: (6) acetaminophen 325 mg [...] gallop, S1+ S2 No S3 or S4 [place].. Gastrointestinal: Soft, Non-tender, Non-distended, Normal bowel sounds. [...]
--- OUTSIDE RECORDS SUMMARY | 2024-11-19 09:57 | XMS_ITS | Encounter Summary ---
Author Organization [employer] ([place], [place], [place], [place]) Address [address] [place] [address] Care Team Providers Care Workday Consultant Name Role Phone Unavailable Primary Care Provider Unavailabl e Encounter Details Date Type Department Care Team (Late st Contact Info) Description 02/06/2019 Transcribed Document [facility] [place] Medicine [facility] [place] [address] ProviderYusuf [place] [facility] [place] [address] Social History Tobacco Use Types [...] - Yusuf ProviderMD - 02/06/2019 3:18 PM BITUMINOUS DISTRIBUTOR OPERATOR Treatment Intervention, OT Entered On: 02/08/2019 [...] : 02/05/2019 10:21 Co-treated by, OT : fleet assistant (DISPLAY ARTIST) Personal Devices : Personal Devices Glasses Assistive [...] FRENCH COTA - 02/08/2019 12:59 EST Senior Risk Analyst Goals, OT Grooming LTG Grid Goal #1 [...] rehabilitation RD FRENCHMAGDY - 02/08/2019 12:59 EST Esmond OT Charges OT Ther Activities Ea 15 Min : 2 ELEANOR FRENCHMAGDY GASCA - 02/08/2019 12:59 EST documented in this encounter Plan of Treatment Not on file documented as of this encounter Visit Diagnoses Not on filedocumented in this encounter
--- OUTSIDE RECORDS SUMMARY | 2024-11-19 09:57 | XMS_ITS | Encounter Summary ---
Author Organization [employer] ([place], [place], [place], [place]) Address [address] [place] [address] Care Team Providers Care Soaker Soda Worker Name Role Phone Unavailable Primary Care Provider Unavailabl e Encounter Details Date Type Department Care Team (Late st Contact Info) Description 02/05/2019 Transcribed Document [facility] [place] Family [place] [facility] [place] [address] ProviderYusuf [place] [address] Social History Tobacco Use Types [...] - Historical ProviderMD - 02/05/2019 10:38 AM STARCH FACTORY LABORER Evaluation, Physical Therapy Entered On: 02/05/2019 14:38 [...] PT for her recent L knee arthoscopy SAMIA CURRY, PT - 02/05/2019 14:32 EST Lower [...] SAIMA CURRY, PT - 02/05/2019 14:32 EST Jail Goals Mobility/Bed Mobility LTG PT [...]
--- OUTSIDE RECORDS SUMMARY | 2024-11-19 09:57 | XMS_ITS | Encounter Summary ---
Author Organization [employer] ([place], [place], [place], [place]) Address [address] [place] [address] Care Team Providers Care Edge Kitter Name Role Phone Unavailable Primary Care Provider Unavailabl e Encounter Details Date Type Department Care Team (Late st Contact Info) Description 02/06/[address] [facility] [place] [address] ProviderYusuf [place] [address] Social History Tobacco Use Types [...] - Yusuf ProviderMD - 02/06/2019 11:41 AM COMPOSITION ROLL MAKER AND CUTTER Initial Discharge Planning Entered On: 02/06/2019 11:49 EST Performed On: 02/06/2019 11:41 EST by DELORIS MCDONALD, Radio Mechanic Initial Assessment I Previously Documented Living Environment [...] Patient's Home Caregiver Medical Durable Power of City Collector Name : no Legal Guardian : No Is Guardianship Needed : No DELORIS MCDONALD Radio Mechanic - 02/06/2019 11:41 EST Initial Assessment II Sensory and Motor Deficits : Weakness Current Home Treatments and Equipment : Cane, Walker DELORIS MCDONALD Radio Mechanic - 02/06/2019 11:41 EST Discharge Needs I [...] Home Health, Short term rehabilitation DELORIS MCDONALD Radio Mechanic - 02/06/2019 11:41 EST Narrative Note Narrative Note : Talked w/ this 74 yr old W F sent as a direct admit from Dr Boyer's neurology office. Pt has tingling and weakess of both upper and lower extremities as well as inability to control bowel or bladder. Brain imaging revealed mye;opathy and pt admitted for further workup. [facility]. Just [...] RRS is low @ 38. DELORIS MCDONALD Radio Mechanic - 02/06/2019 11:41 EST documented in this encounter Plan of Treatment Not on file documented as of this encounter Visit Diagnoses Not on filedocumented in this encounter
--- OUTSIDE RECORDS SUMMARY | 2024-11-19 09:57 | XMS_ITS | Encounter Summary ---
Author Organization [employer] ([place], [place], [place], [place]) Address [address] [place] [address] Care Team Providers Care Assistant Art Director Name Role Phone Unavailable Primary Care Provider Unavailabl e Encounter Details Date Type Department Care Team (Late st Contact Info) Description 02/05/2019 Transcribed Document [facility] [place] Family Medicine [facility] [place] [address] ProviderYusuf MD [facility] [place] [address] Social History Tobacco Use Types [...] - Historical ProviderMD - 02/05/2019 10:38 AM STRAW HAT PLUNGER OPERATOR Education-(VTE) / (DVT) Entered On: 02/05/2019 [...]
--- OUTSIDE RECORDS SUMMARY | 2024-11-19 09:57 | XMS_ITS | Encounter Summary ---
Author Organization [employer] ([place], [place], [place], [place]) Address [address] [place] [address] Care Team Providers Care Lung Splitter Name Role Phone Unavailable Primary Care Provider Unavailabl e Encounter Details Date Type Department Care Team (Late st Contact Info) Description 02/05/2019 Transcribed Document [facility] [place] Family Medicine On [facility] of [facility] [place] [address] ProviderYusuf MD [facility] [place] [address] Social History Tobacco Use Types [...] - Historical ProviderMD - 02/05/2019 10:39 AM TROLLEY COLLECTOR Consult Phone Call Documentation Entered On: 02/05/2019 17:41 EST Performed On: 02/05/2019 10:39 EST by SAVANNA VARGAS RN Phone Call for Consults Consult Reason : dr weiss here to see pt SAVANNA VARGAS RN - 02/05/2019 17:41 EST Electronically signed by Lillian [facility] Conversion Cable Television Technician Cerner at 07/07/2022 9:56 PM CDT documented in this encounter Plan of Treatment Not on file documented as of this encounter Visit Diagnoses Not on filedocumented in this encounter
--- OUTSIDE RECORDS SUMMARY | 2024-11-19 09:57 | XMS_ITS | Encounter Summary ---
Author Organization [employer] ([place], [place], [place], [place]) Address [address] [place] [address] Care Team Providers Care Transit Police Officer Name Role Phone Unavailable Primary Care Provider Unavailabl e Encounter Details Date Type Department Care Team (Late st Contact Info) Description 02/08/[address] [facility] [place] [facility] [place] [address] ProviderYusuf [place] [facility] [address] Social History Tobacco Use Types [...] - Historical ProviderMD - 02/08/2019 9:14 AM SENIOR CLINICAL PROJECT MANAGER On Going Discharge Planning Entered On: 02/08/2019 9:16 EST Performed On: 02/08/2019 9:14 EST by ALECIA GOMEZ RN-Correspondence AnalystConfiguration Management Architect Progress Note Discharge Arrangements : Patient Post-Acute [...] : Clinical Condition of Patient ALECIA GOMEZ RN-Correspondence Analyst - 02/08/2019 9:14 EST Narrative Progress Note [...] to follow for d/c needs. ALECIA GOMEZ, RN-Correspondence Analyst - 02/07/19 09:05:36 ALECIA GOMEZ RN-Correspondence Analyst - 02/08/2019 9:14 EST Electronically signed by Lillian [facility] Conversion Ring Stamper Cerner at 07/07/2022 9:59 PM CDT documented in this encounter Plan of Treatment Not on file documented as of this encounter Visit Diagnoses Not on filedocumented in this encounter
[2024-11-19] MEDS: ERTAPENEM SODIUM 1 GM VIAL IM (10:56)
== END 2024-11-19 11:01 | disposition home or self-care (01) ==
PROVIDERS: PCP Family Medicine; Visit Provider Family Medicine
DX: Z01.89 Encounter for other specified special examinations (principal)
CPT/HCPCS: 96372; J1335

== ENCOUNTER 2024-11-20 15:04 | Outpatient (CLI) | payer MEDICARE, OTHER, SELFPAY ==
--- OUTSIDE RECORDS SUMMARY | 2024-11-20 15:08 | XMS_ITS | Encounter Summary ---
Author Organization [employer] ([place], [place], [place], [place]) Address [address] [place] [address] Care Team Providers Care Video Game Engineer Name Role Phone Unavailable Primary Care Provider Unavailabl e Encounter Details Date Type Department Care Team (Late st Contact Info) Description 02/13/2019 Transcribed Document [facility] [place] [facility] [place] [address] ProviderYusuf MD [facility] [place] [address] Social History Tobacco Use Types [...] - Historical ProviderMD - 02/13/2019 5:04 PM BALING PRESS OPERATOR Patient: FRANKY SCOTT Age: 74 Years [...] legs. TESTS Lyme Disease - negative. Assessment/Plan rFanky Scott is a 74-year-old female, who for [...] 1 Tab, Oral, Daily Electronically signed by [facility] Conversion Logistics Manager Cerner at 07/07/2022 9:59 PM CDT documented in this encounter Plan of Treatment Not on file documented as of this encounter Visit Diagnoses Not on filedocumented in this encounter
--- OUTSIDE RECORDS SUMMARY | 2024-11-20 15:08 | XMS_ITS | Encounter Summary ---
Author Organization [employer] ([place], [place], [place], [place]) Address [address] [place] [address] Care Team Providers Care Wheat Washer Name Role Phone Unavailable Primary Care Provider Unavailabl e Encounter Details Date Type Department Care Team (Late st Contact Info) Description 02/08/2019 Transcribed Document [facility] [place] [address] [place] [address] ProviderYusuf MD [facility] [place] [address] Social History Tobacco Use [...] - Historical ProviderMD - 02/08/2019 5:00 PM NURSERYMAN ASSISTANT Chart Check - Review Order Profile [...]
--- OUTSIDE RECORDS SUMMARY | 2024-11-20 15:08 | XMS_ITS | Encounter Summary ---
Author Organization [employer] ([place], [place], [place], [place]) Address [address] [place] [address] Care Team Providers Care Proposition Player Name Role Phone Unavailable Primary Care Provider Unavailabl e Encounter Details Date Type Department Care Team (Late st Contact Info) Description 02/09/2019 Transcribed Document [facility] [place] Family Medicine [facility] [place] [address] ProviderYusuf MD [facility] [place] [address] Social History Tobacco Use Types [...] - Historical ProviderMD - 02/09/2019 5:08 PM SENIOR ANIMAL TRAINER Patient: FRANKY SCOTT Age: 74 Years Sex: [...]
--- OUTSIDE RECORDS SUMMARY | 2024-11-20 15:08 | XMS_ITS | Encounter Summary ---
Author Organization [employer] ([place], [place], [place], [place]) Address [address] [place] [address] Care Team Providers Care Clay Preparation Supervisor Name Role Phone Unavailable Primary Care Provider Unavailabl e Encounter Details Date Type Department Care Team (Late st Contact Info) Description 02/15/2019 Transcribed Document [facility] [place] Family [place] [address] ProviderYusuf [place] [address] Social History Tobacco [...] - Yusuf ProviderMD - 02/15/2019 10:58 AM ELEMENTARY SPANISH TEACHER Patient Education Materials Follows: Transverse Myelitis [...] You may need to see a nervous industrial green systems designer (neurologist) to have tests, which may include: [...] Follow these instructions at home: ??? Take msld-wdm-pmdjfxt and prescription medicines only as told by [...] 02/25/2003 Document Revised: 11/07/2016 Document Reviewed: 08/13/2015 [employer] Interactive Patient Education ? 2019 [email or web address]. Neurology Spinal Cord Infarction A spinal cord [...] ? Manage bowel and bladder problems. ? [place] with mental health problems. ? Manage pain. [...] 02/25/2003 Document Revised: 11/02/2016 Document Reviewed: 05/21/2014 [employer] Interactive Patient Education ? 2019 [employer] Weakness Weakness is a lack of [...] sleep you need each night. ??? Take cxjz-oag-jmcszyx and prescription medicines only as told by [...] working with a physical therapist or corporate trainer to help you get stronger. ??? [...] 02/17/2009 Document Revised: 04/01/2016 Document Reviewed: 12/26/2015 [employer] Interactive Patient Education ? 2019 [email or web address]. Obstetrics and Gynecology Near-Syncope Near-syncope is when [...] This can help with dizziness. ??? Take irfe-ggm-djromde and prescription medicines only as told by [...] 11/19/2015 Elsevier Interactive Patient Education ? 2019 [employer] Electronically signed by Onel Snyder Conversion Telegraphic Typewriter Operator Chief Cerner at 07/07/2022 9:48 PM CDT documented in this encounter Plan of Treatment Not on file documented as of this encounter Visit Diagnoses Not on filedocumented in this encounter
--- OUTSIDE RECORDS SUMMARY | 2024-11-20 15:08 | XMS_ITS | Encounter Summary ---
Author Organization [employer] ([place], [place], [place], [place]) Address [address] [place] [address] Care Team Providers Care Coding Director Name Role Phone Unavailable Primary Care Provider Unavailabl e Encounter Details Date Type Department Care Team (Late st Contact Info) Description 02/13/2019 Transcribed Document [facility] [place] [address] [place] [address] ProviderYusuf [place] [address] Social History Tobacco Use Types [...] - Historical ProviderMD - 02/13/2019 2:00 AM BISCUIT MAKER Plaster And Stucco Worker Details Entered On: 02/13/2019 4:00 EST Performed [...]
--- OUTSIDE RECORDS SUMMARY | 2024-11-20 15:08 | XMS_ITS | Encounter Summary ---
Author Organization [employer] ([place], [place], [place], [place]) Address [address] [place] [address] Care Team Providers Care Hand Dry Cleaner Name Role Phone Unavailable Primary Care Provider Unavailabl e Encounter Details Date Type Department Care Team (Late st Contact Info) Description 02/07/2019 Transcribed Document [facility] [place] [facility] [place] [address] ProviderYusuf MD [facility] [place] [address] Social History Tobacco Use Types [...] - Yusuf ProviderMD - 02/07/2019 9:04 AM HIGH SCHOOL TEACHER On Going Discharge Planning Entered On: 02/07/2019 9:05 EST Performed On: 02/07/2019 9:04 EST by ALECIA GOMEZ RN-Belt LacerGrocery Department Manager Progress Note Discharge Arrangements : Patient [...] Meeting Medical Necessity : Yes ALECIA GOMEZ RN-Belt Lacer - 02/07/2019 9:04 EST Narrative Progress Note Narrative Progress Note : CM reviewed chart. RRS 38. Cm to room to met pt. Pt spouse in room. spouse stated that pt is off floor for Xray. Spouse stated that DCP is to discharge home with family. Possible hh if a need. CM will continue to follow for d/c needs. ALECIA GOMEZ, RN-Belt Lacer - 02/07/2019 9:04 EST documented in this encounter Plan of Treatment Not on file documented as of this encounter Visit Diagnoses Not on filedocumented in this encounter
--- OUTSIDE RECORDS SUMMARY | 2024-11-20 15:08 | XMS_ITS | Encounter Summary ---
Author Organization [employer] ([place], [place], [place], [place]) Address [address] [place] [address] Care Team Providers Care Cream Cheese Maker Name Role Phone Unavailable Primary Care Provider Unavailabl e Encounter Details Date Type Department Care Team (Late st Contact Info) Description 02/14/2019 Transcribed Document [facility] [place] [facility] [place] [facility] [place] [address] ProviderYusuf MD [facility] [place] [address] Social History Tobacco Use Types [...] - Historical ProviderMD - 02/14/2019 5:00 PM STUFFED CASING TIER Chart Check - Review Order Profile Entered [...]
--- OUTSIDE RECORDS SUMMARY | 2024-11-20 15:08 | XMS_ITS | Encounter Summary ---
Author Organization [employer] ([place], [place], [place], [place]) Address [address] [place] [address] Care Team Providers Care Webbing Tacker Name Role Phone Unavailable Primary Care Provider Unavailabl e Encounter Details Date Type Department Care Team (Late st Contact Info) Description 02/14/2019 Transcribed Document [facility] [place] [facility] [place] [address] ProviderYusuf MD [place] [facility] [place] [address] Social History Tobacco Use Types [...] - Historical ProviderMD - 02/14/2019 2:00 AM IP ATTORNEY Animal Warden Details Entered On: 02/14/2019 6:40 EST Performed [...] JAYA [place] REGISITERED_NURSE - 02/14/2019 6:39 EST Electronically signed by Onel Snyder Conversion Denture Contour Wire Specialist Cerner at 07/07/2022 9:51 PM CDT documented in this encounter Plan of Treatment Not on file documented as of this encounter Visit Diagnoses Not on filedocumented in this encounter
--- OUTSIDE RECORDS SUMMARY | 2024-11-20 15:08 | XMS_ITS | Encounter Summary ---
Author Organization [employer] ([place], [place], [place], [place]) Address [address] [place] [address] Care Team Providers Care It Systems Analyst Name Role Phone Unavailable Primary Care Provider Unavailabl e Encounter Details Date Type Department Care Team (Late st Contact Info) Description 02/07/2019 Transcribed Document [facility] [place] [facility] [place] [address] ProviderYusuf MD [address] [place] [address] Social History Tobacco Use Types [...] - Historical ProviderMD - 02/07/2019 12:08 PM INSIDE SALES PROFESSIONAL Patient: FRANKY SCOTT Age: 74 Years Sex: [...] Daily Electronically signed by Onel Snyder Conversion Unemployment Benefits Claims Taker Kalinaner at 07/07/2022 9:50 PM CDT documented in this encounter Plan of Treatment Not on file documented as of this encounter Visit Diagnoses Not on filedocumented in this encounter
--- OUTSIDE RECORDS SUMMARY | 2024-11-20 15:08 | XMS_ITS | Encounter Summary ---
Author Organization [employer] ([place], [place], [place], [place]) Address [address] [place] [address] Care Team Providers Care Biofuels Plant Operations Engineer Name Role Phone Unavailable Primary Care Provider Unavailabl e Encounter Details Date Type Department Care Team (Late st Contact Info) Description 02/13/2019 Transcribed Document [facility] [place] [facility] [place] [address] ProviderYusuf MD [facility] [place] [address] Social History Tobacco Use Types [...] - Historical ProviderMD - 02/13/2019 5:00 PM REGISTERED DIET TECHNICIAN Chart Check - Review Order Profile [...]
--- OUTSIDE RECORDS SUMMARY | 2024-11-20 15:08 | XMS_ITS | Encounter Summary ---
Author Organization [employer] ([place], [place], [place], [place]) Address [address] [place] [address] Care Team Providers Care Winding Inspector Name Role Phone Unavailable Primary Care Provider Unavailabl e Encounter Details Date Type Department Care Team (Late st Contact Info) Description 02/12/2019 Transcribed Document [facility] [address] [place] [address] Anne Peters MD [address] [place] [address] [address] [place] [id number] Social History Tobacco Use Types Packs/Day Years [...] Referring physician Dr. Johan Sue neurology [facility] Chief complaint bilateral upper and [...] At risk for sleep apnea / IMO [id number] / Confirmed, Active Problems (3) At risk [...] gallop, S1+ S2 No S3 or S4 [place].. Gastrointestinal: Soft, Non-tender, Non-distended, Normal bowel sounds. [...]
--- OUTSIDE RECORDS SUMMARY | 2024-11-20 15:08 | XMS_ITS | Encounter Summary ---
Author Organization [employer] ([place], [place], [place], [place]) Address [address] [place] [address] Care Team Providers Care Technology Adoption Manager Name Role Phone Unavailable Primary Care Provider Unavailabl e Encounter Details Date Type Department Care Team (Late st Contact Info) Description 02/13/2019 Transcribed Document [facility] [place] [facility] [place] [facility] [place] [address] ProviderYusuf MD [place] [address] Social History Tobacco Use Types [...] - Yusuf ProviderMD - 02/13/2019 9:25 AM RODDING MACHINE TENDER On Going Discharge Planning Entered On: 02/13/2019 [...] prefer STR. Patient's first choice would be [facility] in [place] and second choice is [facility]. Referrals sent through [facility]. CM will continue to follow. Historical Progress Note : CM reviewed chart. Neuro consult and following, MRI Cervical Thor. and Lumbar Spine. Discussed DCP with pt including HH vs Rehab. CM Will continue to follow for d/c needs. ALECIA GOMEZ RN-Auto Design Checker - 02/09/19 14:52:38 CM reviewed chart. Cm [...] to follow for d/c needs. ALECIA GOMEZ RN-Auto Design Checker - 02/08/19 09:16:23 CM reviewed chart. RRS 38. Cm to room to met pt. Pt spouse in room. spouse stated that pt is off floor for Xray. Spouse stated that DCP is to discharge home with family. Possible hh if a need. CM will continue to follow for d/c needs. ALECIA GOMEZ RN-Auto Design Checker - 02/07/19 09:05:36 Neva Cotto RN - 02/13/2019 9:25 EST Electronically signed by Lillian [facility] Conversion Flight Instructor Cerner at 07/07/2022 10:01 PM CDT documented in this encounter Plan of Treatment Not on file documented as of this encounter Visit Diagnoses Not on filedocumented in this encounter
--- OUTSIDE RECORDS SUMMARY | 2024-11-20 15:08 | XMS_ITS | Encounter Summary ---
Author Organization [employer] ([place], [place], [place], [place]) Address [address] [place] [address] Care Team Providers Care Manager Agriculture Name Role Phone Unavailable Primary Care Provider Unavailabl e Encounter Details Date Type Department Care Team (Late st Contact Info) Description 02/14/2019 Transcribed Document [facility]iology [address] [place] [address] Zack Jha MD [address] [place] [address] [address] [place] [id number] Social History Tobacco Use Types Packs/Day Years [...] 02/05/[address] Johan Sue neurology [facility] Chief complaint bilateral upper [...] gallop, S1+ S2 No S3 or S4 [place].. Gastrointestinal: Soft, Non-tender, Non-distended, Normal bowel sounds. [...] is ongoing. DC plan: Likely tomorrow to [facility] for short-term rehabilitation. documented in this encounter Plan of Treatment Not on file documented as of this encounter Visit Diagnoses Not on filedocumented in this encounter
--- OUTSIDE RECORDS SUMMARY | 2024-11-20 15:08 | XMS_ITS | Encounter Summary ---
Author Organization [employer] ([place], [place], [place], [place]) Address [address] [place] [address] Care Team Providers Care Benefits Technician Name Role Phone Unavailable Primary Care Provider Unavailabl e Encounter Details Date Type Department Care Team (Late st Contact Info) Description 02/08/2019 Transcribed Document [facility] [place] [facility] [place] [address] ProviderYusuf MD [facility] [place] [address] Social History Tobacco Use [...] - Historical ProviderMD - 02/08/2019 5:00 AM PLANETARIUM TECHNICIAN Chart Check - Review Order Profile [...]
--- OUTSIDE RECORDS SUMMARY | 2024-11-20 15:08 | XMS_ITS | Encounter Summary ---
Author Organization [employer] ([place], [place], [place], [place]) Address [address] [place] [address] Care Team Providers Care Mortgage Funder Name Role Phone Unavailable Primary Care Provider Unavailabl e Encounter Details Date Type Department Care Team (Late st Contact Info) Description 02/07/2019 Transcribed Document [facility] [place] [address] [place] [address] ProviderYusuf MD [facility] [place] [address] Social History Tobacco Use Types [...] - Historical ProviderMD - 02/07/2019 7:58 AM PHP MYSQL WEB DEVELOPER Spiritual Care Short Form Entered On: 02/07/2019 [...]
--- OUTSIDE RECORDS SUMMARY | 2024-11-20 15:08 | XMS_ITS | Encounter Summary ---
Author Organization [employer] ([place], [place], [place], [place]) Address [address] [place] [address] Care Team Providers Care Clay Worker Name Role Phone Unavailable Primary Care Provider Unavailabl e Encounter Details Date Type Department Care Team (Late st Contact Info) Description 02/07/2019 Transcribed Document [facility] Radiology [address] [place] [address] Anne Peters MD [address] [place] [address] [place] [id number] Social History Tobacco Use Types Packs/Day Years [...] At risk for sleep apnea / IMO [id number] / Confirmed, Active Problems (3) At risk [...] gallop, S1+ S2 No S3 or S4 [place].. Gastrointestinal: Soft, Non-tender, Non-distended, Normal bowel sounds. [...] (NOV ) Radiology Results (Last 48 hours) [id number] -- 02/05/2019 10:21 MRI Spine Cervical WO [...] cord from the cervicomedullary junction to the C4-[id number]. There is mild enhancement of the cord. [...] broad-based posterior disc bulging at C4-C5. At C6-[id number] is a central to left paracentral disc [...] FLUOROSCOPYHISTORY: Transverse myelitis.ATTENDING PHYSICIAN: Baljit Gee M.D.PHYSICIAN GOLF CLUB FACER: JIMBO Luque-CPROCEDURE: After informed consent was obtained [...]
--- OUTSIDE RECORDS SUMMARY | 2024-11-20 15:08 | XMS_ITS | Encounter Summary ---
Author Organization [employer] ([place], [place], [place], [place]) Address [address] [place] [address] Care Team Providers Care Traffic Sergeant Name Role Phone Unavailable Primary Care Provider Unavailabl e Encounter Details Date Type Department Care Team (Late st Contact Info) Description 02/07/[address] [facility] [place] Family Medicine [address] [place] [address] ProviderYusuf MD [facility] [place] [address] Social History Tobacco Use Types [...] - Historical ProviderMD - 02/07/2019 5:00 PM CAR WASH ATTENDANT AUTOMATIC Chart Check - Review Order Profile Entered [...]
--- OUTSIDE RECORDS SUMMARY | 2024-11-20 15:08 | XMS_ITS | Encounter Summary ---
Author Organization [employer] ([place], [place], [place], [place]) Address [address] [place] [address] Care Team Providers Care Profiling Machine Set Up Operator Name Role Phone Unavailable Primary Care Provider Unavailabl e Encounter Details Date Type Department Care Team (Late st Contact Info) Description 02/14/2019 Transcribed Document [facility] [place] Family Medicine [address] [place] [address] ProviderYusuf MD [facility] [place] [address] Social History Tobacco Use Types [...] - Historical ProviderMD - 02/14/2019 5:00 AM LOG SORTING SUPERVISOR Chart Check - Review Order Profile Entered On: 02/14/2019 6:41 EST Performed On: 02/14/2019 5:00 EST by JAYA WASHINGTON REGISITERED_ Chart Check Powerplans Initiated/Discontinued as Appropriate : Yes All Active Orders Reviewed : Yes JAYA WASHINGTON REGISITERED_ - 02/14/2019 6:41 EST Electronically signed by Lillian [facility] Conversion Dermatology Specialist Cerner at 07/07/2022 10:01 PM CDT documented in this encounter Plan of Treatment Not on file documented as of this encounter Visit Diagnoses Not on filedocumented in this encounter
--- OUTSIDE RECORDS SUMMARY | 2024-11-20 15:08 | XMS_ITS | Encounter Summary ---
Author Organization [employer] ([place], [place], [place], [place]) Address [address] [place] [address] Care Team Providers Care Qa Intern Name Role Phone Unavailable Primary Care Provider Unavailabl e Encounter Details Date Type Department Care Team (Late st Contact Info) Description 02/13/2019 Transcribed Document [facility] Family Medicine [address] [place] [address] ProviderYusuf MD [facility] [place] [address] Social History Tobacco Use [...] - Historical ProviderMD - 02/13/2019 5:00 AM BEAD MACHINE OPERATOR Chart Check - Review Order Profile Entered On: 02/13/2019 6:10 EST Performed On: 02/13/2019 5:00 EST by JAYA WASHINGTON REGISITERED_NURSE Chart Check Powerplans Initiated/Discontinued as Appropriate : Yes All Active Orders Reviewed : Yes JAYA WASHINGTON REGISITERED_NURSE - 02/13/2019 6:10 EST Electronically signed by [facility] Conversion Manager Trading Cerner at 07/07/2022 9:56 PM CDT documented in this encounter Plan of Treatment Not on file documented as of this encounter Visit Diagnoses Not on filedocumented in this encounter
--- OUTSIDE RECORDS SUMMARY | 2024-11-20 15:08 | XMS_ITS | Encounter Summary ---
Author Organization [employer] ([place], [place], [place], [place]) Address [address] [place] [address] Care Team Providers Care Drama Teacher Name Role Phone Unavailable Primary Care Provider Unavailabl e Encounter Details Date Type Department Care Team (Late st Contact Info) Description 02/12/2019 Transcribed Document [facility] [facility] [address] [place] [address] ProviderYusuf MD [facility] [place] [address] Social History Tobacco Use Types [...] - Historical ProviderMD - 02/12/2019 2:00 AM DIVIDING MACHINE OPERATOR HELPER Operating Room Surgical Technologist Details Entered On: 02/12/2019 4:19 EST Performed [...]
--- OUTSIDE RECORDS SUMMARY | 2024-11-20 15:08 | XMS_ITS | Encounter Summary ---
Author Organization [employer] ([place], [place], [place], [place]) Address [address] [place] [address] Care Team Providers Care Financial Planning Advisor Name Role Phone Unavailable Primary Care Provider Unavailabl e Encounter Details Date Type Department Care Team (Late st Contact Info) Description 02/08/2019 Transcribed Document [facility] Family Medicine [facility] [place] [address] ProviderYusuf MD [facility] [place] [address] Social History Tobacco Use Types [...] - Historical ProviderMD - 02/08/2019 2:23 PM MANAGER LSW Patient: FRANKY SCOTT Age: 74 Years Sex: [...] overnight and is now wearing 02 by [place]. Psychiatric - patient received some IV Lorazepam overnight for anxiety . She denies any suicidality . Objective Vitals & Measurements T: 36.6 ??C TMIN: 36.3 ??C TMAX: 36.8 ??C HR: 83(Monitored) RR: 16 BP: 143/85 SpO2: 97% WT: 80 kg Physical Exam Patient lying comfortably in bed wearing 02 by [place]. Motor - 4/5 in both arms. 2/5 [...]
--- OUTSIDE RECORDS SUMMARY | 2024-11-20 15:08 | XMS_ITS | Encounter Summary ---
Author Organization [employer] ([place], [place], [place], [place]) Address [address] [place] [address] Care Team Providers Care Offshore Wind Operations Manager Name Role Phone Unavailable Primary Care Provider Unavailabl e Encounter Details Date Type Department Care Team (Late st Contact Info) Description 02/08/2019 Transcribed Document [facility] Radiology 1 [place] [address] Anne Peters MD [address] [place] [address] [address] [place] [id number] Social History Tobacco Use Types Packs/Day Years [...] Referring physician Dr. Johan Sue neurology [facility] Chief complaint bilateral upper and lower [...] At risk for sleep apnea / IMO [id number] / Confirmed, Active Problems (3) At risk [...] gallop, S1+ S2 No S3 or S4 [place].. Gastrointestinal: Soft, Non-tender, Non-distended, Normal bowel sounds. [...] (FEB 05) Radiology Results (Last 48 hours) [id number] -- 02/05/2019 10:21 CR Fluoro GD Lumbar Punct Dx (02/06/2019 14:40) Result: LUMBAR PUNCTURE AND FLUOROSCOPYHISTORY: Transverse myelitis.ATTENDING PHYSICIAN: Baljit Gee M.D.PHYSICIAN TECH ED TEACHER: KELSIE LuqueCPROCEDURE: After informed consent was obtained [...]
--- OUTSIDE RECORDS SUMMARY | 2024-11-20 15:08 | XMS_ITS | Encounter Summary ---
Author Organization [employer] ([place], [place], [place], [place]) Address [address] [place] [address] Care Team Providers Care Microbiology Manager Name Role Phone Unavailable Primary Care Provider Unavailabl e Encounter Details Date Type Department Care Team (Late st Contact Info) Description 02/12/2019 Transcribed Document [facility] Radiology 1 [place] [address] Claudio Allen MD [facility] [place] [address] Social History Tobacco Use Types [...] few weeks prior to her admission at [facility], she noticed progressive weakness to [...] rate and rhythm. ABDOMEN: Soft and nontender. PLISSE MACHINE OPERATOR: Demonstrate ability to move both upper [...] the patient were comfortable with the discussion. /[id number] Christiano Allen MD ROONEY/AQ / ROONEY / MODL /[id number] CC: MD Johan Leone MD Haider Abbas, MD Imran A Khan, MD Electronically signed by [facility], [facility] Conversion Maintenance Instructor Cerner at 07/07/2022 9:59 PM CDT documented in this encounter Plan of Treatment Not on file documented as of this encounter Visit Diagnoses Not on filedocumented in this encounter
--- OUTSIDE RECORDS SUMMARY | 2024-11-20 15:08 | XMS_ITS | Encounter Summary ---
Author Organization [employer] ([place], [place], [place], [place]) Address [address] [place] [address] Care Team Providers Care Director Of Loss Prevention Name Role Phone Unavailable Primary Care Provider Unavailabl e Encounter Details Date Type Department Care Team (Late st Contact Info) Description 02/08/2019 Transcribed Document [facility] Family Medicine [facility] [place] [address] ProviderYusuf MD [facility] [place] [address] Social History Tobacco Use Types [...] - Historical ProviderMD - 02/08/2019 9:14 AM CUSTOMER LIAISON On Going Discharge Planning Entered On: 02/08/2019 9:16 EST Performed On: 02/08/2019 9:14 EST by ALECIA GOMEZ RN-Cnc Machine OperatorCnc Machinist 2Nd Shift Progress Note Discharge Arrangements : Patient Post-Acute [...] : Clinical Condition of Patient ALECIA GOMEZ RN-Cnc Machine Operator - 02/08/2019 9:14 EST Narrative Progress Note [...] to follow for d/c needs. ALECIA GOMEZ, RN-Cnc Machine Operator - 02/07/19 09:05:36 ALECIA GOMEZ RN-Cnc Machine Operator - 02/08/2019 9:14 EST Electronically signed by Lillian [facility] Conversion Tire And Lube Technician Cerner at 07/07/2022 9:59 PM CDT documented in this encounter Plan of Treatment Not on file documented as of this encounter Visit Diagnoses Not on filedocumented in this encounter
--- OUTSIDE RECORDS SUMMARY | 2024-11-20 15:08 | XMS_ITS | Encounter Summary ---
Author Organization [employer] ([place], [place], [place], [place]) Address [address] [place] [address] Care Team Providers Care Shoe Maker Name Role Phone Unavailable Primary Care Provider Unavailabl e Encounter Details Date Type Department Care Team (Late st Contact Info) Description 02/13/2019 Transcribed Document [facility] Family Medicine [facility] [place] [address] ProviderYusuf MD [facility] [address] Social History Tobacco Use Types [...] - Historical ProviderMD - 02/13/2019 4:17 PM UTILIZATION REVIEW SPECIALIST On Going Discharge Planning Entered On: [...] Note Narrative Progress Note : Patient chose [facility] for STR. CM notified that patient has been approved for admission. Dr. Bales in to speak with patient, family and CM. Will order diagnostic scand for tomorrw and plan on admission to [facility] on , 02/15. Historical Progress Note [...] prefer STR. Patient's [facility] choice [facility] be [facility] and second choice is [facility]. Referrals sent through [facility]. CM will continue to follow. Neva Cotto RN - 02/13/19 09:37:24 MICHAELA reviewed chart. Neuro consult and following, MRI Cervical Thor. and Lumbar Spine. Discussed DCP with pt including HH vs Rehab. CM Will continue to follow for d/c needs. ALECIA GOMEZ RN-Estimator Printing - 02/09/19 14:52:38 CM reviewed chart. Cm [...] to follow for d/c needs. ALECIA GOMEZ, JONATAN-Estimator Printing - 02/08/19 09:16:23 CM reviewed chart. RRS 38. Cm to room to met pt. Pt spouse in room. spouse stated that pt is off floor for Xray. Spouse stated that DCP is to discharge home with family. Possible hh if a need. CM will continue to follow for d/c needs. ALECIA GOMEZ RN-Estimator Printing - 02/07/19 09:05:36 Neva Cotto RN - 02/13/2019 16:17 EST Electronically signed by Lillian [facility] Conversion Jointer Submarine Cable Cerner at 07/07/2022 9:59 PM CDT documented in this encounter Plan of Treatment Not on file documented as of this encounter Visit Diagnoses Not on filedocumented in this encounter
--- OUTSIDE RECORDS SUMMARY | 2024-11-20 15:08 | XMS_ITS | Encounter Summary ---
Author Organization [employer] ([place], [place], [place], [place]) Address [address] [place] [address] Care Team Providers Care Ferryboat Pilot Name Role Phone Unavailable Primary Care Provider Unavailabl e Encounter Details Date Type Department Care Team (Late st Contact Info) Description 02/14/2019 Transcribed Document [facility] Family Medicine [facility] [place] [address] ProviderYusuf MD [facility] [place] [address] Social History Tobacco Use [...] - Historical ProviderMD - 02/14/2019 2:46 PM INTERNET AND E BUSINESS PROJECT MANAGER On Going Discharge Planning Entered On: 02/14/2019 14:52 EST Performed On: 02/14/2019 14:46 EST by Neva Cotto RN Care Management Progress Note Designation of Choice Signed : Yes (Comment: Patient given a list of providers for STR with associated STARS rating. Patient selected [facility]. [Neva Cotto RN - 02/14/2019 15:08 [...] pelvis with/out contrast completed. DCP: [facility] spinal cord unit tomorrow. will transport. IM and Choice signed. Historical Progress Note : Patient chose [facility] for STR. CM notified that patient has been approved for admission. Dr. Bales in to speak with patient, family and CM. Will order diagnostic scand for tomorrw and plan on admission to [facility] on , 02/15. Neva Cotto RN [...] prefer STR. Patient's first choice would be [facility] and second choice is [facility]. Referrals sent through [facility]. CM will continue to follow. Neva Cotto RN - 02/13/19 09:37:24 CM reviewed chart. Neuro consult and following, MRI Cervical Thor. and Lumbar Spine. Discussed DCP with pt including HH vs Rehab. CM Will continue to follow for d/c needs. ALECIA GOMEZ, RN-Pelt Salter - 02/09/19 14:52:38 CM reviewed chart. Cm [...] to follow for d/c needs. ALECIA GOMEZ, RN-Pelt Salter - 02/08/19 09:16:23 CM reviewed chart. RRS 38. Cm to room to met pt. Pt spouse in room. spouse stated that pt is off floor for Xray. Spouse stated that DCP is to discharge home with family. Possible hh if a need. CM will continue to follow for d/c needs. ALECIA GOMEZ, JONATAN-Pelt Salter - 02/07/19 09:05:36 Neva Cotto RN - 02/14/2019 15:08 EST Electronically signed by Lillian [facility] Conversion Cleat Thrower Cerner at 07/07/2022 9:52 PM CDT documented in this encounter Plan of Treatment Not on file documented as of this encounter Visit Diagnoses Not on filedocumented in this encounter
--- OUTSIDE RECORDS SUMMARY | 2024-11-20 15:08 | XMS_ITS | Encounter Summary ---
Author Organization [email or web address] ([place], [place], [place], [place]) Address [address] [place] [address] Care Team Providers Care Ship Runner Name Role Phone Unavailable Primary Care Provider Unavailabl e Encounter Details Date Type Department Care Team (Late st Contact Info) Description 02/12/2019 Transcribed Document [facility] [address] [facility] [address] [place] [address] Fernando Dotson MD [address] [facility] [place] [address] Social History Tobacco Use Types [...] 5/5 d, 5/5 b, 5/5 t, 5/[address] 5/5 d, 5/5 b, 5/5 t, 5/5 search strategist lle 4+/5 hf, 4+/5 ke, 4+/5 df, [...] CLOUDY2 (Abnormal) 02/11/2019 22:29 EST Urine Specific [place] 1.020 02/11/2019 22:29 EST Urine pH Dipstick [...]
--- OUTSIDE RECORDS SUMMARY | 2024-11-20 15:08 | XMS_ITS | Encounter Summary ---
Author Organization [employer] ([place], [place], [place], [place]) Address [address] [place] [address] Care Team Providers Care Flux Tube Attendant Name Role Phone Unavailable Primary Care Provider Unavailabl e Encounter Details Date Type Department Care Team (Late st Contact Info) Description 02/08/2019 Transcribed Document [facility] [place] Family Medicine [facility] [place] [address] ProviderYusuf MD [facility] [place] [address] Social History Tobacco Use Types [...] - Historical ProviderMD - 02/08/2019 6:01 AM CUTTING MACHINE OPERATOR Event Note Entered On: 02/08/2019 6:04 EST [...]
--- OUTSIDE RECORDS SUMMARY | 2024-11-20 15:08 | XMS_ITS | Encounter Summary ---
Author Organization [employer] ([place], [place], [place], [place]) Address [address] [place] [address] Care Team Providers Care Air Quality Manager Name Role Phone Unavailable Primary Care Provider Unavailabl e Encounter Details Date Type Department Care Team (Late st Contact Info) Description 02/08/2019 Transcribed Document [facility] Family Medicine [address] [place] [address] ProviderYusuf MD [facility] [place] [address] Social History Tobacco Use Types [...] - Historical ProviderMD - 02/08/2019 12:58 AM AUDIO VISUAL TECHNICIAN Event Note Entered On: 02/08/2019 1:00 EST [...]
--- OUTSIDE RECORDS SUMMARY | 2024-11-20 15:08 | XMS_ITS | Encounter Summary ---
Author Organization [employer] ([place], [place], [place], [place]) Address [address] [place] [address] Care Team Providers Care Dev Ops Engineer Name Role Phone Unavailable Primary Care Provider Unavailabl e Encounter Details Date Type Department Care Team (Late st Contact Info) Description 02/07/2019 Transcribed Document [facility] [facility] [place] [address] ProviderYusuf MD [facility] [address] Social History Tobacco Use [...] - Historical ProviderMD - 02/07/2019 5:00 AM APPLICATION DEVELOPER Chart Check - Review Order Profile [...]
--- OUTSIDE RECORDS SUMMARY | 2024-11-20 15:08 | XMS_ITS | Encounter Summary ---
Author Organization [employer] ([place], [place], [place], [place]) Address [address] [place] [address] Care Team Providers Care Cartoon Artist Name Role Phone Unavailable Primary Care Provider Unavailabl e Encounter Details Date Type Department Care Team (Late st Contact Info) Description 02/13/2019 Transcribed Document [facility] Radiology [address] [place] [address] Zack Jha MD [address] [address] [address] [place] [id number] Social History Tobacco Use Types Packs/Day Years [...] hospital as a direct admit per Dr. Johna Sue's request. Patient reports bilateral upper and [...] gallop, S1+ S2 No S3 or S4 [place].. Gastrointestinal: Soft, Non-tender, Non-distended, Normal bowel sounds. [...] complaint to look for a facility in [place], close to their home. documented in this encounter Plan of Treatment Not on file documented as of this encounter Visit Diagnoses Not on filedocumented in this encounter
--- OUTSIDE RECORDS SUMMARY | 2024-11-20 15:08 | XMS_ITS | Encounter Summary ---
Author Organization [employer] ([place], [place], [place], [place]) Address [address] [place] [address] Care Team Providers Care Information Security Risk Analyst Name Role Phone Unavailable Primary Care Provider Unavailabl e Encounter Details Date Type Department Care Team (Late st Contact Info) Description 02/14/2019 Transcribed Document [facility] [place] [address] ProviderYusuf [place] [address] Social History Tobacco Use Types [...] - Historical ProviderMD - 02/14/2019 11:30 AM LICENSED FUNERAL DIRECTOR AND EMBALMER Attempt to Treat, OT Entered On: 02/14/2019 [...]
--- OUTSIDE RECORDS SUMMARY | 2024-11-20 15:08 | XMS_ITS | Encounter Summary ---
Author Organization [employer] ([place], [place], [place], [place]) Address [address] [place] [address] Care Team Providers Care Director Experimental Medicine Name Role Phone Unavailable Primary Care Provider Unavailabl e Encounter Details Date Type Department Care Team (Late st Contact Info) Description 02/12/2019 Transcribed Document [facility] [place] Family Medicine [address] [place] [address] ProviderYusuf [place] [address] Social History Tobacco Use Types [...] - Historical ProviderMD - 02/12/2019 5:00 PM STAFF MIDWIFE/APPRENTICESHIP DIRECTOR Chart Check - Review Order Profile [...]
--- OUTSIDE RECORDS SUMMARY | 2024-11-20 15:09 | XMS_ITS | Encounter Summary ---
Author Organization [employer] ([place], [place], [place], [place]) Address [address] [place] [address] Care Team Providers Care Customs Consultant Name Role Phone Unavailable Primary Care Provider Unavailabl e Encounter Details Date Type Department Care Team (Late st Contact Info) Description 02/10/2019 Transcribed Document [facility] Family Medicine [address] [place] [address] ProviderYusuf MD On [place] [address] Social History Tobacco Use Types [...] - Historical ProviderMD - 02/10/2019 5:00 PM BATCH OPERATOR Chart Check - Review Order Profile [...]
--- OUTSIDE RECORDS SUMMARY | 2024-11-20 15:09 | XMS_ITS | Encounter Summary ---
Author Organization [employer] ([place], [place], [place], [place]) Address [address] [place] [address] Care Team Providers Care Tree Planter Name Role Phone Unavailable Primary Care Provider Unavailabl e Encounter Details Date Type Department Care Team (Late st Contact Info) Description 02/05/2019 Transcribed Document [facility] [place] Family Medicine [facility] [place] [address] ProviderYusuf MD [facility] [place] [address] Social History Tobacco Use [...] - Historical ProviderMD - 02/05/2019 6:08 PM FISH AND GAME CLUB MANAGER DATE OF CONSULTATION: 02/05/2019 HISTORY OF [...] a in [facility] where she and her spent a lot of time walking around [facility] and during that walking trip around [facility], when she tried to get her legs [...] went to an emergency room in [facility] recently and they let her go home [...] 4. Hydrochlorothiazide. 5. Losartan. 6. Biotin. 7. [place]-3. 8. Potassium. 9. Zoloft. 10. Coenzyme Q. [...] years. SOCIAL HISTORY: The patient lives in [place] with her . She has three children. [...] through XII are intact. Coordination shows intact qzfscj-dy-mkcy and amsu-ih-fpfd. Reflexes are hyperactive throughout at 2 to 3+ with bilaterally upgoing toes. Sensory exam shows intact joint position in both feet. Gait was not tested. LABORATORY DATA: The patient had an MRI scan of her brain done at [facility] on February 02 as being read, [...] her . I will follow with you. /[id number] MD ROSIO Leone/ERASMO / ROSIO / MODL /[id number] documented in this encounter Plan of Treatment Not on file documented as of this encounter Visit Diagnoses Not on filedocumented in this encounter
--- OUTSIDE RECORDS SUMMARY | 2024-11-20 15:09 | XMS_ITS | Encounter Summary ---
Author Organization [employer] ([place], [place], [place], [place]) Address [address] [place] [address] Care Team Providers Care Construction Coordinator Name Role Phone Unavailable Primary Care Provider Unavailabl e Encounter Details Date Type Department Care Team (Late st Contact Info) Description 02/05/2019 Transcribed Document [facility] [place] [facility] [place] [address] ProviderYusuf MD [facility] [place] [address] Social History Tobacco Use Types [...] - Historical ProviderMD - 02/05/2019 10:39 AM TOYS AND GAMES HAND FINISHER Consult Phone Call Documentation Entered On: 02/05/2019 17:41 EST Performed On: 02/05/2019 10:39 EST by SAVANNA VARGAS RN Phone Call for Consults Consult Reason : dr weiss here to see pt SAVANNA VARGAS RN - 02/05/2019 17:41 EST Electronically signed by [facility] Conversion Belt Conveyor Drier Cerner at 07/07/2022 9:56 PM CDT documented in this encounter Plan of Treatment Not on file documented as of this encounter Visit Diagnoses Not on filedocumented in this encounter
--- OUTSIDE RECORDS SUMMARY | 2024-11-20 15:09 | XMS_ITS | Encounter Summary ---
Author Organization [employer] ([place], [place], [place], [place]) Address [address] [place] [address] Care Team Providers Care Tenant Relations Coordinator Name Role Phone Unavailable Primary Care Provider Unavailabl e Encounter Details Date Type Department Care Team (Late st Contact Info) Description 02/06/2019 Transcribed Document [facility] Radiology [address] [place] [address] Anne Peters MD [address] [place] [address] [address] [place] [id number] Social History Tobacco Use Types Packs/Day Years [...] discharge Referring physician Dr. Johan Sue neurology [facility] Chief complaint bilateral upper and [...] At risk for sleep apnea / IMO [id number] / Confirmed, Active Problems (3) At risk [...] gallop, S1+ S2 No S3 or S4 [place].. Gastrointestinal: Soft, Non-tender, Non-distended, Normal bowel sounds. [...] (FEB 05) Radiology Results (Last 48 hours) [id number] -- 02/05/2019 10:21 MRI Spine Cervical WO [...] cord from the cervicomedullary junction to the C4-D5tqpjb. There is mild enhancement of the cord. [...] broad-based posterior disc bulging at C4-C5. At C6-M6wxjch is a central to left paracentral disc [...]
--- OUTSIDE RECORDS SUMMARY | 2024-11-20 15:09 | XMS_ITS | Encounter Summary ---
Author Organization [employer] ([place], [place], [place], [place]) Address [address] [place] [address] Care Team Providers Care Belting And Webbing Inspector Name Role Phone Unavailable Primary Care Provider Unavailabl e Encounter Details Date Type Department Care Team (Late st Contact Info) Description 02/05/2019 Transcribed Document [facility] [place] [address] [place] [address] ProviderYusuf MD [facility] [place] [address] Social History Tobacco Use Types [...] - Historical ProviderMD - 02/05/2019 5:00 PM BUSINESS ENTERPRISE OFFICER Chart Check - Review Order Profile [...]
--- OUTSIDE RECORDS SUMMARY | 2024-11-20 15:09 | XMS_ITS | Clinical Summary ---
Author Organization Healthcare Address [address] [place] [address] Care Team Providers Care Chemist Biological Name Role Phone Jensen Santiago MD Primary Care Provider [phone] Allergies Active Allergy Reactions Criticality Noted Date [...] or (1 - 1-dose 75+ series) 2022 [id number] Vaccine (2023- season) 2023 12/16/2021, 07/31/2021, 01/28/2021, [...] age to complete this topic Insurance MEDICARE [facility] Care Teams Chemist Biological Relationship Specialty Start Date End Date Jensen Santiago MD [address] [place] [id number] PCP - General 12/11/20
--- OUTSIDE RECORDS SUMMARY | 2024-11-20 15:09 | XMS_ITS | Encounter Summary ---
Author Organization [employer] ([place], [place], [place], [place]) Address [address] [place] [address] Care Team Providers Care Seo Marketing Specialist Name Role Phone Unavailable Primary Care Provider Unavailabl e Encounter Details Date Type Department Care Team (Late st Contact Info) Description 02/05/2019 Transcribed Document [facility] [place] Medicine [facility] [place] [address] ProviderYusuf MD [facility] [place] [address] Social History Tobacco Use Types [...] - Historical ProviderMD - 02/05/2019 10:38 AM GRAINER MACHINE Evaluation, Physical Therapy Entered On: 02/05/2019 14:38 [...] standard Home Setup : One story SAIMA CRURY, PT - 02/05/2019 14:32 EST Prior Level [...] SAIMA CURRY, PT - 02/05/2019 14:32 EST Correction Goals Mobility/Bed Mobility LTG PT Grid Goal [...]
--- OUTSIDE RECORDS SUMMARY | 2024-11-20 15:09 | XMS_ITS | Encounter Summary ---
Author Organization [employer] ([place], [place], [place], [place]) Address [address] [place] [address] Care Team Providers Care Roller Bearing Inspector Name Role Phone Unavailable Primary Care Provider Unavailabl e Encounter Details Date Type Department Care Team (Late st Contact Info) Description 02/05/2019 Transcribed Document [facility] [place] Medicine [facility] [place] [address] ProviderYusuf MD [facility] [place] [address] Social History Tobacco Use Types [...] - Historical ProviderMD - 02/05/2019 10:38 AM CARGO AND RAMP SERVICES MANAGER Evaluation, Occupational Therapy Entered On: 02/06/2019 [...] IVANIA BIRD OTR/Leeann 02/06/2019 15:12 EST Hand Airline Dispatcher Test : Bilateral wireless internet installer strength WFL IVANIA BIRD OTR/Leeann 02/06/2019 15:12 [...] activities IVANIA BIRD OTR/Leeann 02/06/2019 15:12 EST [place] Goals, OT Grooming LTG Grid Goal #1 [...]
--- OUTSIDE RECORDS SUMMARY | 2024-11-20 15:09 | XMS_ITS | Encounter Summary ---
Author Organization [employer] ([place], [place], [place], [place]) Address [address] [place] [address] Care Team Providers Care Trolley Operator Name Role Phone Unavailable Primary Care Provider Unavailabl e Encounter Details Date Type Department Care Team (Late st Contact Info) Description 02/10/2019 Transcribed Document [facility] [place] Family Medicine [address] [place] [address] ProviderYusuf MD [facility] [place] [address] Social History Tobacco Use Types [...] - Historical ProviderMD - 02/10/2019 5:00 AM OUTBOUND SALES SPECIALIST Chart Check - Review Order Profile [...]
--- OUTSIDE RECORDS SUMMARY | 2024-11-20 15:09 | XMS_ITS | Encounter Summary ---
Author Organization [employer] ([place], [place], [place], [place]) Address [address] [place] [address] Care Team Providers Care Content Management Specialist Name Role Phone Unavailable Primary Care Provider Unavailabl e Encounter Details Date Type Department Care Team (Late st Contact Info) Description 02/09/2019 Transcribed Document [facility] [place] [facility] [place] [address] ProviderYusuf MD [facility] [place] [address] Social History Tobacco Use Types [...] - Historical ProviderMD - 02/09/2019 5:00 AM HEALTH DATA ADMINISTRATOR Chart Check - Review Order Profile [...]
--- OUTSIDE RECORDS SUMMARY | 2024-11-20 15:09 | XMS_ITS | Encounter Summary ---
Author Organization [employer] ([place], [place], [place], [place]) Address [address] [place] [address] Care Team Providers Care Horse Trainer Name Role Phone Unavailable Primary Care Provider Unavailabl e Encounter Details Date Type Department Care Team (Late st Contact Info) Description 02/09/2019 Transcribed Document [facility] [place] Medicine [facility] [place] [address] ProviderYusuf MD [facility] [place] [address] Social History Tobacco Use [...] - Historical ProviderMD - 02/09/2019 2:51 PM STATE MANAGER On Going Discharge Planning Entered On: 02/09/2019 14:52 EST Performed On: 02/09/2019 14:51 EST by ALECIA GOMEZ RN-Child Welfare AssistantSenior Technical Manager Progress Note Discharge Arrangements : Patient [...] Meeting Medical Necessity : Yes ALECIA GOMEZ RN-Child Welfare Assistant - 02/09/2019 14:51 EST Narrative Progress Note [...] to follow for d/c needs. ALECIA GOMEZ RN-Child Welfare Assistant - 02/08/19 09:16:23 CM reviewed chart. RRS 38. Cm to room to met pt. Pt spouse in room. spouse stated that pt is off floor for Xray. Spouse stated that DCP is to discharge home with family. Possible hh if a need. CM will continue to follow for d/c needs. ALECIA GOMEZ RN-Child Welfare Assistant - 02/07/19 09:05:36 ALECIA GOMEZ RN-Child Welfare Assistant - 02/09/2019 14:51 EST documented in this encounter Plan of Treatment Not on file documented as of this encounter Visit Diagnoses Not on filedocumented in this encounter
--- OUTSIDE RECORDS SUMMARY | 2024-11-20 15:09 | XMS_ITS | Clinical Summary ---
[facility] Organization [facility] Address [address] [place] [address] Care Team Providers Care Tool Straightener Name Role Phone Jensen Santiago MD Primary Care Provider [phone] Allergies Active Allergy Reactions Criticality Noted Date Comments Lisinopril Hives Low 03/28/2019 Penicillins Rash Low 03/28/2019 Tramadol Rash Low 10/17/2019 Medications potassium chloride (K-DUR,KLOR-CON) 10 MEQ CR tablet Take 10 mEq by mouth Daily. 9 Active losartan (COZAAR) 25 MG tablet Take 1 tablet by mouth Daily. Active Biotin 48906 MCG tablet Take 1,000 mcg by mouth Daily. Active [place]-3 Fatty Acids (FISH OIL) 500 MG capsule [...] TO AFFECTED AREA TWICE DAILY 2 Active [place]-3 Fatty Acids (fish oil) 1000 MG capsule [...] 06/29/2019, 04/22 Medical Devices Implanted Type Area Deputy Director Of Finance Device Identifier Shelf Expiration Date Model / Serial / Lot Sys Liq Emb [place] 18 Evoh/6pct Vl1.5ml - [id number] Implanted:Qty: 1 on 04/06/2019 by Laurent Kelsey MD at [facility] Implant EV3 [place] [id number] / / Insurance MEDICARE A & B [facility] Advance Directives Documents on File Type Date Recorded Patient Apartment Rental Clerk Expl anation LIVING WILL - SCAN [...] Scott Spouse Health Care Surrogate Care Teams Tool Straightener Relationship Specialty Start Date End Date Jensen Santiago MD [address] [place] [address] [place] [address] [place] [id number] PCP - General Family Medicine 03/26/19
--- OUTSIDE RECORDS SUMMARY | 2024-11-20 15:09 | XMS_ITS | Encounter Summary ---
Author Organization [employer] ([place], [place], [place], [place]) Address [address] [place] [address] Care Team Providers Care Joint Sealer Name Role Phone Unavailable Primary Care Provider Unavailabl e Encounter Details Date Type Department Care Team (Late st Contact Info) Description 02/06/2019 Transcribed Document [facility] [place] Medicine [facility] [place] [address] ProviderYusuf MD [facility] [place] [address] Social History Tobacco Use Types [...] - Historical ProviderMD - 02/06/2019 2:00 AM SPLINE ROLLING MACHINE JOB SETTER Food Service Aide Details Entered On: 02/06/2019 1:49 EST Performed On: 02/06/2019 2:00 EST by Aciha Logan, RN Order Details Transport Mode Order [...] EST Electronically signed by Onel Snyder Conversion Independent Sales Representative Cerner at 07/07/2022 9:58 PM CDT documented in this encounter Plan of Treatment Not on file documented as of this encounter Visit Diagnoses Not on filedocumented in this encounter
--- OUTSIDE RECORDS SUMMARY | 2024-11-20 15:09 | XMS_ITS | Encounter Summary ---
Author Organization [employer] ([place], [place], [place], [place]) Address [address] [place] [address] Care Team Providers Care Development Consultant Name Role Phone Unavailable Primary Care Provider Unavailabl e Encounter Details Date Type Department Care Team (Late st Contact Info) Description 02/06/2019 Transcribed Document [facility] [place] [address] [place] [address] ProviderYusuf MD [facility] [address] Social History Tobacco Use Types [...] - Historical ProviderMD - 02/06/2019 5:00 PM HATCHERY LABORER Chart Check - Review Order Profile Entered [...]
--- OUTSIDE RECORDS SUMMARY | 2024-11-20 15:09 | XMS_ITS | Encounter Summary ---
Author Organization [employer] [place] ([place], [place], [place], [place]) Address [address] [place] [address] Care Team Providers Care Processing Technologist Name Role Phone Unavailable Primary Care Provider Unavailabl e Encounter Details Date Type Department Care Team (Late st Contact Info) Description 02/09/2019 Transcribed Document [facility] Radiology [address] [place] [address] Anne Peters MD [address] [place] [address] [address] [place] [id number] Social History Tobacco Use Types Packs/Day Years [...] discharge Referring physician Dr. Johan Sue neurology [facility] Chief complaint bilateral upper and lower extremity [...] At risk for sleep apnea / O [id number] / Confirmed, Active Problems (3) At risk [...] gallop, S1+ S2 No S3 or S4 [place].. Gastrointestinal: Soft, Non-tender, Non-distended, Normal bowel sounds. [...]
--- OUTSIDE RECORDS SUMMARY | 2024-11-20 15:09 | XMS_ITS | Encounter Summary ---
Author Organization [employer] ([place], [place], [place], [place]) Address [address] [place] [address] Care Team Providers Care Chemistry Specialist Name Role Phone Unavailable Primary Care Provider Unavailabl e Encounter Details Date Type Department Care Team (Late st Contact Info) Description 02/05/2019 Transcribed Document [facility] [place] Medicine [facility] [place] [address] ProviderYusuf MD [facility] [place] [address] Social History Tobacco Use Types [...] - Historical ProviderMD - 02/05/2019 10:16 AM PAINTER STRUCTURAL STEEL Admission History, Adult Entered On: 02/05/2019 11:36 [...] From : Patient, Spouse Primary Language : Azeri Preferred Communication Mode : Verbal Communication Barrier [...] Level : 46 or > High Risk Mcgraws Fall Interventions : Adequate lighting, Assistive devices [...] Source : Measured Height Entry Format : [place] Height, Feet : 5 ft(Converted to: 152 cm, 60 Inch) Height, Inches : 5 Inch(Converted to: 0 ft 5 Inch, 12.70 cm) Clinical Height : 165.1 cm Weight Source : Bed scale Weight Entry Format : [place] Clinical Dosing Weight : 79.09 kg Weight, Pounds : 174 lb Body Surface Area (BSA) : 1.87 m2 Body Mass Index : 29 kg/m2 (HI) [place] Body Weight : 57 kg SAVANNA VARGAS [...] SAVANNA VARGAS RN - 02/05/2019 11:27 EST [place] Suicide Severity Rating Scale (C-SSRS) CSSRS Past [...] 02/05/2019 11:27 EST Electronically signed by Lillian, Onel Conversion Environmental Health Physician Cerner at 07/07/2022 9:58 PM CDT documented in this encounter Plan of Treatment Not on file documented as of this encounter Visit Diagnoses Not on filedocumented in this encounter
--- OUTSIDE RECORDS SUMMARY | 2024-11-20 15:09 | XMS_ITS | Encounter Summary ---
Author Organization [employer] ([place], [place], [place], [place]) Address [address] [place] [address] Care Team Providers Care Four Roll Calender Operator Name Role Phone Unavailable Primary Care Provider Unavailabl e Encounter Details Date Type Department Care Team (Late st Contact Info) Description 02/06/2019 Transcribed Document [facility] [place] Family Medicine [facility] [place] [address] ProviderYusuf MD [facility] [place] [address] Social History Tobacco Use Types [...] - Historical ProviderMD - 02/06/2019 2:40 PM LIMOUSINE AND HEARSE UPHOLSTERER Patient: FRANKY SCOTT Age: 74 years Sex: [...]
--- OUTSIDE RECORDS SUMMARY | 2024-11-20 15:09 | XMS_ITS | Encounter Summary ---
Author Organization [employer] ([place], [place], [place], [place]) Address [address] [place] [address] Care Team Providers Care Pipe Bowls Paint Trimmer Name Role Phone Unavailable Primary Care Provider Unavailabl e Encounter Details Date Type Department Care Team (Late st Contact Info) Description 02/09/2019 Transcribed Document [facility] [place] [facility] [place] [address] ProviderYusuf MD [facility] [place] [address] Social History Tobacco Use Types [...] - Historical ProviderMD - 02/09/2019 5:00 PM ASSISTANT WOMENS VOLLEYBALL COACH Chart Check - Review Order Profile Entered On: 02/09/2019 15:20 EST Performed On: 02/09/2019 17:00 EST by Yeimi Olmos RN Chart Check Powerplans Initiated/Discontinued as Appropriate : Yes All Active Orders Reviewed : Yes Yeimi Olmos RN - 02/09/2019 15:20 EST Electronically signed by Lillian [facility] Conversion Scissors Sharpener Cerner at 07/07/2022 9:50 PM CDT documented in this encounter Plan of Treatment Not on file documented as of this encounter Visit Diagnoses Not on filedocumented in this encounter
--- OUTSIDE RECORDS SUMMARY | 2024-11-20 15:09 | XMS_ITS | Encounter Summary ---
Author Organization [employer] ([place], [place], [place], [place]) Address [address] [place] [address] Care Team Providers Care Knowledge Engineer Name Role Phone Unavailable Primary Care Provider Unavailabl e Encounter Details Date Type Department Care Team (Late st Contact Info) Description 02/05/2019 Transcribed Document [facility] [place] [address] ProviderYusuf [place] [address] Social History Tobacco Use Types [...] - Yusuf ProviderMD - 02/05/2019 11:36 AM DIRECTOR WORKERS COMPENSATION Provider Notification Entered On: 02/06/2019 14:55 EST Performed On: 02/06/2019 11:36 EST by ROLY MEDEIROS RN Provider Notification Provider Notified of Concerns/Results : Change in status ROLY MEDEIROS RN - 02/06/2019 14:55 EST documented in this encounter Plan of Treatment Not on file documented as of this encounter Visit Diagnoses Not on filedocumented in this encounter
--- OUTSIDE RECORDS SUMMARY | 2024-11-20 15:09 | XMS_ITS | Encounter Summary ---
Author Organization [employer] ([place], [place], [place], [place]) Address [address] [place] [address] Care Team Providers Care Credentialer Name Role Phone Unavailable Primary Care Provider Unavailabl e Encounter Details Date Type Department Care Team (Late st Contact Info) Description 02/10/2019 Transcribed Document [facility] [place] [facility] [place] [address] ProviderYusuf MD [facility] [place] [address] Social History Tobacco Use Types [...] - Historical ProviderMD - 02/10/2019 2:00 AM MOTOR VEHICLE REPRESENTATIVE Vine Fruit Farming Supervisor Details Entered On: 02/10/2019 2:04 EST Performed [...]
--- OUTSIDE RECORDS SUMMARY | 2024-11-20 15:09 | XMS_ITS | Encounter Summary ---
Author Organization [employer] ([place], [place], [place], [place]) Address [address] [place] [address] Care Team Providers Care Django Developer Name Role Phone Unavailable Primary Care Provider Unavailabl e Encounter Details Date Type Department Care Team (Late st Contact Info) Description 02/05/2019 Transcribed Document [facility] Radiology [address] [place] [address] Anne Peters MD [address] [place] [address] [address] [place] [phone] Social History Tobacco Use Types Packs/Day Years [...] Referring physician Dr. Johan Sue neurology [facility] Chief complaint bilateral upper and lower [...] Q4H, PRN: Nausea heparin: 5,000 Units, SubCutaneous, [id number] hydrALAZINE: 5 mg, IV Push, Q4H, PRN: Hypertension morphine: 2 mg, IV Push, Q2H, PRN: Pain (Severe 7-10), No qualifying data available , Medications (8) Active Scheduled: (2) famotidine 20 mg tab 20 mg 1 Tab, Oral, Q12H heparin 5,000 Units, SubCutaneous, [id number] Continuous: (0) PRN: (6) acetaminophen 325 mg [...] gallop, S1+ S2 No S3 or S4 [place].. Gastrointestinal: Soft, Non-tender, Non-distended, Normal bowel sounds. [...]
--- OUTSIDE RECORDS SUMMARY | 2024-11-20 15:09 | XMS_ITS | Encounter Summary ---
Author Organization [employer] ([place], [place], [place], [place]) Address [address] [place] [address] Care Team Providers Care Inventory Control/Shipping Receiving Name Role Phone Unavailable Primary Care Provider Unavailabl e Encounter Details Date Type Department Care Team (Late st Contact Info) Description 02/10/2019 Transcribed Document [facility] Radiology 1 [place] [address] Anne Peters MD [address] [place] [address] [address] [place] [id number] Social History Tobacco Use Types Packs/Day Years [...] discharge Referring physician Dr. Johan Sue neurology [facility] Chief complaint bilateral upper and lower extremity [...] At risk for sleep apnea / IMO [id number] / Confirmed, Active Problems (3) At risk [...] gallop, S1+ S2 No S3 or S4 [place].. Gastrointestinal: Soft, Non-tender, Non-distended, Normal bowel sounds. [...]
--- OUTSIDE RECORDS SUMMARY | 2024-11-20 15:09 | XMS_ITS | Encounter Summary ---
Author Organization [employer] ([place], [place], [place], [place]) Address [address] [place] [address] Care Team Providers Care Sprayer Auto Parts Name Role Phone Unavailable Primary Care Provider Unavailabl e Encounter Details Date Type Department Care Team (Late st Contact Info) Description 02/06/[address] [facility] [place] [facility] [place] [address] ProviderYusuf MD [facility] [place] [address] Social History Tobacco Use Types [...] - Historical ProviderMD - 02/06/2019 3:39 PM BEFORE AND AFTER SCHOOL DAYCARE WORKER Patient: FRANKY SCOTT Age: 74 Years [...] Meningitis/Encephalitis Panel Myelin Basic Protein, Sendout Pathology Non-Cleaning Team Member Request RPR Rapid Plasma Reagin Sequential Compression [...] Oral, Daily Electronically signed by Lillian, [facility] Conversion Bisque Ware Dipper Cerner at 07/07/2022 9:59 PM CDT documented in this encounter Plan of Treatment Not on file documented as of this encounter Visit Diagnoses Not on filedocumented in this encounter
--- OUTSIDE RECORDS SUMMARY | 2024-11-20 15:09 | XMS_ITS | Encounter Summary ---
Author Organization [employer] ([place], [place], [place], [place]) Address [address] [place] [address] Care Team Providers Care Fiber Optic Central Office Installer Name Role Phone Unavailable Primary Care Provider Unavailabl e Encounter Details Date Type Department Care Team (Late st Contact Info) Description 02/06/2019 Transcribed Document [facility] [place] [facility] [address] ProviderYusuf [place] [address] Social History Tobacco Use Types [...] - Historical ProviderMD - 02/06/2019 9:20 AM CUT OFF MACHINE HELPER UM Authorization Entered On: 02/06/2019 9:20 EST Performed On: 02/06/2019 9:20 EST by VALENTINA GOODE Rn-Utilization Review Primary Insurance Authorization Authorization and Policy Numbers : Insurance 1 Health Plan: MEDICARE Policy Number: [id number] Authorization Number: Insurance 2 Health Plan: [employer] [place] [place] Policy Number: [id number] Authorization Number: Insurance Primary Name : MEDICARE Policy Number: [id number] [place] [employer] [place] Policy Number: [id number] Historical Authorization Comments-Primary : No Authorization Comments Found VALENTINA GOODE Rn-Utilization Review - 02/06/2019 9:20 EST Electronically signed by Lillian [facility] Conversion Oilseed Meat Presser Cerner at 07/07/2022 9:58 PM CDT documented in this encounter Plan of Treatment Not on file documented as of this encounter Visit Diagnoses Not on filedocumented in this encounter
--- OUTSIDE RECORDS SUMMARY | 2024-11-20 15:09 | XMS_ITS | Encounter Summary ---
Author Organization [employer] ([place], [place], [place], [place]) Address [address] [place] [address] Care Team Providers Care Roll Tube Setter Name Role Phone Unavailable Primary Care Provider Unavailabl e Encounter Details Date Type Department Care Team (Late st Contact Info) Description 02/05/2019 Transcribed Document [facility] [place] [facility] [place] [address] ProviderYusuf MD [facility] [place] [address] Social History Tobacco Use Types [...] - Historical ProviderMD - 02/05/2019 10:38 AM TRAVELING STOREKEEPER Education-(VTE) / (DVT) Entered On: 02/05/2019 17:17 [...]
--- OUTSIDE RECORDS SUMMARY | 2024-11-20 15:10 | XMS_ITS | Encounter Summary ---
Author Organization [employer] ([place], [place], [place], [place]) Address [address] [place] [address] Care Team Providers Care Manager Military Name Role Phone Unavailable Primary Care Provider Unavailabl e Encounter Details Date Type Department Care Team (Late st Contact Info) Description 02/15/2019 Transcribed Document [facility] [place] [facility] [place] [address] ProviderYusuf MD [facility] [place] [address] Social History Tobacco Use Types [...] - Historical ProviderMD - 02/15/2019 10:46 AM DRIER TENDER NAPHTHALENE Nursing Discharge Summary Entered On: 02/15/2019 10:47 [...]
--- OUTSIDE RECORDS SUMMARY | 2024-11-20 15:10 | XMS_ITS | Encounter Summary ---
Author Organization [employer] ([place], [place], [place], [place]) Address [address] [place] [address] Care Team Providers Care Dental Ceramist Helper Name Role Phone Unavailable Primary Care Provider Unavailabl e Encounter Details Date Type Department Care Team (Late Contact Info) Description 02/12/2019 Transcribed Document [facility] [place] On license of [facility] [place] [address] ProviderYusuf MD On [place] [address] Social History Tobacco Use Types [...] - Historical ProviderMD - 02/12/2019 5:20 PM INTERIOR PLANT CARETAKER Patient: FRANKY SCOTT Age: 74 Years Sex: [...]
--- OUTSIDE RECORDS SUMMARY | 2024-11-20 15:10 | XMS_ITS | Encounter Summary ---
Author Organization [employer] ([place], [place], [place], [place]) Address [address] [place] [address] Care Team Providers Care Testing Shaking Shipping Name Role Phone Unavailable Primary Care Provider Unavailabl e Encounter Details Date Type Department Care Team (Late st Contact Info) Description 02/06/2019 Transcribed Document [facility] [place] [facility] [place] [address] ProviderYusuf MD [facility] [place] [address] Social History Tobacco Use Types [...] - Yusuf ProviderMD - 02/06/2019 3:18 PM INBOUND SALES MANAGER Treatment Intervention, OT Entered On: 02/08/2019 13:07 [...] : 02/05/2019 10:21 Co-treated by, OT : assistant plant manager (AQUATIC FACILITY MANAGER) Personal Devices : Personal Devices Glasses [...] RD FRENCH COTA - 02/08/2019 12:59 EST Show Jumping Instructor Goals, OT Grooming LTG Grid Goal #1 [...] rehabilitation RD FRENCHMAGDY - 02/08/2019 12:59 EST [place] OT Charges OT Ther Activities Ea 15 Min : 2 ELEANOR FRENCHMAGDY GASCA - 02/08/2019 12:59 EST documented in this encounter Plan of Treatment Not on file documented as of this encounter Visit Diagnoses Not on filedocumented in this encounter
--- OUTSIDE RECORDS SUMMARY | 2024-11-20 15:10 | XMS_ITS | Encounter Summary ---
Author Organization [employer] ([place], [place], [place]) Address [address] [place] [address] Care Team Providers Care Cement Block Maker Name Role Phone Unavailable Primary Care Provider Unavailabl e Encounter Details Date Type Department Care Team (Late st Contact Info) Description 02/15/[address] [facility] [place] [facility] [place] [address] ProviderYusuf MD [facility] [place] [address] Social History Tobacco Use Types [...] - Yusuf ProviderMD - 02/15/2019 10:59 AM CHIEF LIFESTYLE OFFICER Final Discharge Planning Entered On: 02/15/2019 11:02 EST Performed On: 02/15/2019 10:59 EST by ALECIA GOMEZ RN-Catastrophe Claims Supervisor Final Discharge Planning Discharge Arrangements : Patient Post-Acute Information Patient Name: FRANKY SCOTT Gender: Female : [birth year] Age: 74 Years [place] Referral(s): Service: Organization: Business Address: Phone Number: Acute Rehab [facility] [address] [place], [address] Patient Offered Choice/Affiliations Explained : Yes Transportation Needs : Family/Friend Discharge To Care Management : IRF -Inpatient Rehabilitation Facility- ALECIA GOMEZ RN-Catastrophe Claims Supervisor - 02/15/2019 10:59 EST Final Narrative Note Final Narrative Note : CM reviewed chart. RRS 32. CM met to discuss DCP. [facility] spinal cord unit today. will transport. IM and Choice signed.. Cm informed pharmacy and bedside RN. Confirmed with [facility]. No further needs noted. ALECIA GOMEZ, JONATAN-Catastrophe Claims Supervisor - 02/15/2019 10:59 EST Electronically signed by Interface, [facility] Conversion Manager Of Product Cerner at 07/07/2022 9:55 PM CDT documented in this encounter Plan of Treatment Not on file documented as of this encounter Visit Diagnoses Not on filedocumented in this encounter
--- OUTSIDE RECORDS SUMMARY | 2024-11-20 15:10 | XMS_ITS | Encounter Summary ---
Author Organization [employer] ([place], [place], [place]) Address [address] [place] [address] Care Team Providers Care Shipping And Receiving Coordinator Name Role Phone Unavailable Primary Care Provider Unavailabl e Encounter Details Date Type Department Care Team (Late st Contact Info) Description 02/15/2019 Transcribed Document [facility] [place] [address] [place] [address] ProviderYusuf MD [facility] [place] [address] Social History Tobacco Use Types [...] - Historical ProviderMD - 02/15/2019 10:46 AM FORKLIFT MATERIAL HANDLER Stroke/Warfarin Instructions Entered On: 02/15/2019 10:46 EST [...]
--- OUTSIDE RECORDS SUMMARY | 2024-11-20 15:10 | XMS_ITS | Encounter Summary ---
Author Organization [employer] ([place], [place]) Address [address] [place] [address] Care Team Providers Care Cvir Tech Name Role Phone Unavailable Primary Care Provider Unavailabl e Encounter Details Date Type Department Care Team (Late st Contact Info) Description 02/10/2019 Transcribed Document [facility] [place] [facility] [place] [address] ProviderYusuf MD [facility] [place] [address] Social History Tobacco Use [...] - Historical ProviderMD - 02/10/2019 5:38 PM SCREENER AND BLENDER OPERATOR Patient: FRANKY DEWITT Age: 74 Years Sex: [...]
--- OUTSIDE RECORDS SUMMARY | 2024-11-20 15:10 | XMS_ITS | Encounter Summary ---
Author Organization [employer] ([place], [place], [place], [place]) Address [address] [place] [address] Care Team Providers Care Riveting Machine Operator Tape Control Name Role Phone Unavailable Primary Care Provider Unavailabl e Encounter Details Date Type Department Care Team (Late st Contact Info) Description 02/12/2019 Transcribed Document [facility] [place] [facility] [place] [address] ProviderYusuf MD [facility] [place] [address] Social History Tobacco Use [...] - Historical ProviderMD - 02/12/2019 9:00 AM VP SCIENTIFIC AFFAIRS Pain Assessment Entered On: 02/12/2019 11:07 EST [...]
--- OUTSIDE RECORDS SUMMARY | 2024-11-20 15:10 | XMS_ITS | Encounter Summary ---
Author Organization [employer] ([place], [place], [place], [place]) Address [address] [place] [address] Care Team Providers Care Cd Mixer Helper Name Role Phone Unavailable Primary Care Provider Unavailabl e Encounter Details Date Type Department Care Team (Late st Contact Info) Description 02/15/2019 Transcribed Document [facility] [place] [address] [place] [address] ProviderYusuf MD [facility] [place] [address] Social History Tobacco Use Types [...] - Historical ProviderMD - 02/15/2019 5:00 AM PATIENT CARE PROVIDER Chart Check - Review Order Profile Entered On: 02/15/2019 6:55 EST Performed On: 02/15/2019 5:00 EST by Esther Cheek RN Chart Check All Active Orders Reviewed : Yes Esther Cheek RN - 02/15/2019 6:55 EST Electronically signed by Lillian [facility] Conversion Audio Visual Technician Cerner at 07/07/2022 9:50 PM CDT documented in this encounter Plan of Treatment Not on file documented as of this encounter Visit Diagnoses Not on filedocumented in this encounter
--- OUTSIDE RECORDS SUMMARY | 2024-11-20 15:10 | XMS_ITS | Encounter Summary ---
Author Organization [employer] ([place], [place], [place], [place]) Address [address] [place] [address] Care Team Providers Care Hide And Skin Colerer Name Role Phone Unavailable Primary Care Provider Unavailabl e Encounter Details Date Type Department Care Team (Late st Contact Info) Description 02/11/2019 Transcribed Document [facility] [place] [facility] [place] [address] ProviderYusuf MD [facility] [place] [address] Social History Tobacco Use Types [...] - Historical ProviderMD - 02/11/2019 10:44 AM GETTERING OPERATOR Patient: FRANKY DEWITT Age: 74 Years [...]
--- OUTSIDE RECORDS SUMMARY | 2024-11-20 15:10 | XMS_ITS | Encounter Summary ---
Author Organization [employer] ([place], [place], [place], [place]) Address [address] [place] [address] Care Team Providers Care Geoscientist Name Role Phone Unavailable Primary Care Provider Unavailabl e Encounter Details Date Type Department Care Team (Late st Contact Info) Description 02/05/[address] [facility] [place] [address] [place] [address] ProviderYusuf MD [address] [place] [address] Social History Tobacco Use Types [...] - Historical ProviderMD - 02/05/2019 10:53 AM VETERINARIAN ASSISTANT HARBOR DEPARTMENT MANAGER Attempt to Treat Entered On: 02/05/2019 10:54 [...]
--- OUTSIDE RECORDS SUMMARY | 2024-11-20 15:10 | XMS_ITS | Encounter Summary ---
Author Organization [employer] ([place], [place], [place], [place]) Address [address] [place] [address] Care Team Providers Care Tile Picker Name Role Phone Unavailable Primary Care Provider Unavailabl e Encounter Details Date Type Department Care Team (Late st Contact Info) Description 02/06/2019 Transcribed Document [facility] Family Medicine [address] [place] [address] ProviderYusuf [place] [address] Social History Tobacco Use Types [...] - Historical ProviderMD - 02/06/2019 5:00 AM AUTO HAULER Chart Check - Review Order Profile Entered On: 02/06/2019 4:09 EST Performed On: 02/06/2019 5:00 EST by Aicah Logan, RN Chart Check Powerplans Initiated/Discontinued as Appropriate : Yes All Active Orders Reviewed : Yes Aicha Logan RN - 02/06/2019 4:09 EST Electronically signed by Lillian [facility] Conversion Manager Hospitality Cerner at 07/07/2022 9:53 PM CDT documented in this encounter Plan of Treatment Not on file documented as of this encounter Visit Diagnoses Not on filedocumented in this encounter
--- OUTSIDE RECORDS SUMMARY | 2024-11-20 15:10 | XMS_ITS | Encounter Summary ---
Author Organization [employer] ([place], [place], [place], [place]) Address [address] [place] [address] Care Team Providers Care Recreation Activities Coordinator Name Role Phone Unavailable Primary Care Provider Unavailabl e Encounter Details Date Type Department Care Team (Late st Contact Info) Description 02/12/2019 Transcribed Document [facility] [place] [facility] [place] [address] ProviderYusuf MD [facility] [place] [address] Social History Tobacco Use Types [...] - Historical ProviderMD - 02/12/2019 8:56 AM ART MODEL Consult Phone Call Documentation Entered On: 02/12/2019 9:20 EST Performed On: 02/12/2019 8:56 EST by Gloria Acosta [facility] Phone Call for Consults Consult Phone Call/Page Attempt : First call Gloria Acosta [facility] - 02/12/2019 9:20 EST Consult Reason : Cervical Myopathy Physician Requesting Consult : BASHIR RAYMOND MD-INT Provider Service Notified Name : Other: Rheumatology Date and Time Call Returned : 02/12/2019 8:56 EST Gloria Acosta [facility] - 02/12/2019 9:17 EST Electronically signed by Lillian [facility] Conversion Manager Lsw Cerner at 07/07/2022 9:51 PM CDT documented in this encounter Plan of Treatment Not on file documented as of this encounter Visit Diagnoses Not on filedocumented in this encounter
--- OUTSIDE RECORDS SUMMARY | 2024-11-20 15:10 | XMS_ITS | Encounter Summary ---
Author Organization [employer] ([place], [place], [place], [place]) Address [address] [place] [address] Care Team Providers Care Financial Reporting Manager Name Role Phone Unavailable Primary Care Provider Unavailabl e Encounter Details Date Type Department Care Team (Late st Contact Info) Description 02/05/2019 Transcribed Document [facility] [place] [facility] [place] [address] ProviderYusuf MD [facility] [place] [address] Social History Tobacco Use Types [...] - Historical ProviderMD - 02/05/2019 2:38 PM EXTRACTIONS TECHNOLOGIST Treatment Intervention, PT Entered On: 02/06/2019 11:48 EST Performed On: 02/06/2019 11:44 EST by SIVAKUMAR MCKINLEY PT General Information, PT Visit Type, PT : Treatment Note Patient Orders : Order Date Order Ordering 02/05/2019 10:38 PT Evaluation and Treatment Ordered By: BASHIR RYAMOND MD-INT 02/05/2019 14:38 PT Additional Treatment Ordered By: SAIMA CURRY PT Active Diagnoses : 02/05/2019 12:00 Disease of spinal cord, unspecified Admission Date : 02/05/2019 10:21 Co-treated by, PT : Occupational Therapist Assisted by, PT : commercial pest control technician/aide Personal Devices : Personal Devices Glasses [...] SIVAKUMAR MCKINLEY PT - 02/06/2019 11:44 EST Retirement Goals Mobility/Bed Mobility LTG PT Grid Goal [...] Plan for Treatment : Continue POC SIVAKUMAR MKCINLEY, PT - 02/06/2019 11:44 EST Pain Assessment [...] 02/06/2019 11:44 EST Electronically signed by Lillian [facility] Conversion Director Of Infection Prevention Cerner at 07/07/2022 9:58 PM CDT documented in this encounter Plan of Treatment Not on file documented as of this encounter Visit Diagnoses Not on filedocumented in this encounter
--- OUTSIDE RECORDS SUMMARY | 2024-11-20 15:10 | XMS_ITS | Encounter Summary ---
Author Organization [employer] ([place], [place], [place], [place]) Address [address] [place] [address] Care Team Providers Care Home Health Attendant Name Role Phone Unavailable Primary Care Provider Unavailabl e Encounter Details Date Type Department Care Team (Late st Contact Info) Description 02/11/2019 Transcribed Document [facility] Radiology [address] [place] [address] Anne Peters MD [address] [place] [address] [address] [place] [id number] Social History Tobacco Use Types Packs/Day Years [...] At risk for sleep apnea / IMO [id number] / Confirmed, Active Problems (3) At risk [...] gallop, S1+ S2 No S3 or S4 [place].. Gastrointestinal: Soft, Non-tender, Non-distended, Normal bowel sounds. [...]
--- OUTSIDE RECORDS SUMMARY | 2024-11-20 15:10 | XMS_ITS | Encounter Summary ---
Author Organization [employer] ([place], [place], [place], [place]) Address [address] [place] [address] Care Team Providers Care Texture Artist Name Role Phone Unavailable Primary Care Provider Unavailabl e Encounter Details Date Type Department Care Team (Late st Contact Info) Description 02/15/2019 Transcribed Document [facility] Radiology [address] [place] [address] Zack Jha MD [address] [place] [address] [address] [place] [id number] Social History Tobacco Use Types Packs/Day Years [...] 02/05/2019 Date of discharge: 02/15/2019 Discharge facilitys [facility] Full code at the time of discharge Referring physician Dr. Johan Sue neurology [facility] Chief complaint bilateral upper and [...] gallop, S1+ S2 No S3 or S4 Door.. Gastrointestinal: Soft, Non-tender, Non-distended, Normal bowel sounds. [...] (FEB 05) Radiology Results (Last 48 hours) [id number] -- 02/05/2019 10:21 CT Abdomen Pelvis WO [...] per history. DC Instructions 1- DC to [facility] today 2- Follow with neurology Dr. [...] minutes Cc DC summary to: PCP, neurology [facility], neurology [facility], rheumatology Dr. Allen, documented in this encounter Plan of Treatment Not on file documented as of this encounter Visit Diagnoses Not on filedocumented in this encounter
--- OUTSIDE RECORDS SUMMARY | 2024-11-20 15:10 | XMS_ITS | Encounter Summary ---
Author Organization [employer] ([place], [place], [place], [place]) Address [address] [place] [address] Care Team Providers Care Presidential Support Specialist Name Role Phone Unavailable Primary Care Provider Unavailabl e Encounter Details Date Type Department Care Team (Late st Contact Info) Description 02/05/2019 Transcribed Document [facility] [place] [facility] [place] [address] ProviderYusuf MD [facility] [place] [address] Social History Tobacco Use Types [...] - Yusuf ProviderMD - 02/05/2019 10:39 AM MOLDING MACHINE TENDER Swallow Evaluation Entered On: 02/05/2019 12:20 EST Performed On: 02/05/2019 12:16 EST by KENNA KIM AUTO TRANSMISSION TECHNICIAN General Information Visit Type, AUTO TRANSMISSION TECHNICIAN : Initial evaluation KENNA KIM SLP - 02/05/2019 12:16 EST Patient Orders : Consult to Speech Language Pathology for Swallow Eval -111 Start: 02/05/19 10:39:00 EST, Routine, For Swallow Eval and Treat - BASHIR RAYMOND MD-INT Admission Date : Admission Date/Time: 02/05/19 10:21:00 KENNA KIM, ASHER - 02/05/2019 12:21 EST Medical Chart Reviewed, AUTO TRANSMISSION TECHNICIAN : Yes KENNA KIM SLP - 02/05/2019 12:16 EST Personal Devices : Personal Devices Glasses Assistive Devices : Assistive Devices No Devices Recorded Active Diagnoses : 02/05/2019 12:00 Disease of spinal cord, unspecified KENNA KIM SLP - 02/05/2019 12:21 EST Therapy Diagnosis, AUTO TRANSMISSION TECHNICIAN : normal oropharyngeal skills Previous Swallow Precautions : no previous ST in EMR Diet/Intake Prior to Current Admission : reg/thin Diet/Intake During Current Admission : reg/thin Intubation Comment, AUTO TRANSMISSION TECHNICIAN : n/a KENNA KIM SLP - 02/05/2019 [...] 12:16 EST General Status Patient Received Status, AUTO TRANSMISSION TECHNICIAN : Long sitting in bed Patient Left Status, AUTO TRANSMISSION TECHNICIAN : Long sitting in bed KENNA KIM [...] Oral Mechanism for Daily Living : Intact AUTO TRANSMISSION TECHNICIAN Cough : Strong Facial Appearance: : Symmetrical [...] these records, Dr. Brunson sent her to [facility]. ST is asked to see for [...] - 02/05/2019 12:21 EST Therapy Indication Assessment AUTO TRANSMISSION TECHNICIAN Indicated : No AUTO TRANSMISSION TECHNICIAN Not Indicated : At prior level of function KENNA KIM SLP - 02/05/2019 12:21 EST Education Barriers To Learning : None evident Individuals Taught : Patient, Spouse KENNA KIM SLP - 02/05/2019 12:21 EST AUTO TRANSMISSION TECHNICIAN Education Assessment Grid 1 Aspiration : Verbalizes understanding Diet Recommendation : Verbalizes understanding KENNA KIM SLP - 02/05/2019 12:21 EST [place] AUTO TRANSMISSION TECHNICIAN Charges Evaluation Swallowing Function : 1 KENNA KIM, AUTO TRANSMISSION TECHNICIAN - 02/05/2019 12:21 EST Anticipated Discharge Needs, AUTO TRANSMISSION TECHNICIAN Anticipated Discharge to : Home, independently, Home, with home health Recommend Continued Therapy at Discharge : No KENNA KIM, ASHER - 02/05/2019 12:21 EST Electronically signed by Lillian [facility] Conversion System Auditor Cerner at 07/07/2022 10:01 PM CDT documented in this encounter Plan of Treatment Not on file documented as of this encounter Visit Diagnoses Not on filedocumented in this encounter
--- OUTSIDE RECORDS SUMMARY | 2024-11-20 15:10 | XMS_ITS | Encounter Summary ---
Author Organization [employer] ([place], [place], [place], [place]) Address [address] [place] [address] Care Team Providers Care Medical Records Supervisor Name Role Phone Unavailable Primary Care Provider Unavailabl e Encounter Details Date Type Department Care Team (Late st Contact Info) Description 02/12/2019 Transcribed Document [facility] [place] Family Medicine [address] [place] [address] ProviderYusuf MD [facility] [place] [address] Social History Tobacco Use Types [...] - Historical ProviderMD - 02/12/2019 9:00 AM FITNESS TRAINER Consult Phone Call Documentation Entered On: 02/12/2019 9:21 EST Performed On: 02/12/2019 9:00 EST by Gloria Acosta [facility] Phone Call for Consults Consult Phone Call/Page Attempt : Other: Md called Consult Reason : Thrombocytosis Physician Requesting Consult : BASHIR RAYMOND MD-INT Physician Requested for Consult : EMANUEL MITCHELL MD-RHE Provider Service Notified Name : Other: Oncology Date and Time Call Returned : 02/12/2019 8:56 EST Gloria Acosta [facility] - 02/12/2019 9:20 EST Electronically signed by Lillian [facility] Conversion Integrated Circuit Design Engineer Cerner at 07/07/2022 9:48 PM CDT documented in this encounter Plan of Treatment Not on file documented as of this encounter Visit Diagnoses Not on filedocumented in this encounter
--- OUTSIDE RECORDS SUMMARY | 2024-11-20 15:10 | XMS_ITS | Encounter Summary ---
Author Organization [employer] ([place], [place], [place], [place]) Address [address] [place] [address] Care Team Providers Care Elevated Guard Name Role Phone Unavailable Primary Care Provider Unavailabl e Encounter Details Date Type Department Care Team (Late st Contact Info) Description 02/15/2019 Transcribed Document [facility] [place] [address] ProviderYusuf MD [facility] [place] [address] Social History Tobacco Use Types [...] - Yusuf ProviderMD - 02/15/2019 1:26 PM ASSOCIATE PROFESSOR OF ARCHAEOLOGY [facility] [place], [place] [id number] FRANKY DEWITT :1945 Visit Time:02/05/2019 Your Visit [...] next Instructions From Your Care Team Rehabilitation: [facility] spinal cord unit/ / Discharge Summary: [phone] faxed [facility] Transportation: Car with family Follow up with Dr. Sue in 2 weeks. Follow up with Dr. Allen as recommended in 2-3 weeks. Discharge Follow Up Instructions: Follow-Up Appointments Follow Up with BRISEIDA SUE MD-GIBSON When Within 1 month Where: [address] [place] [address] [place] [address]- Medications What How Much When Instructions Next [...] ? Manage bowel and bladder problems. ? [place] with mental health problems. ? Manage pain. [...] 02/25/2003 Document Revised: 11/02/2016 Document Reviewed: 05/21/2014 Viz[employer] Interactive Patient Education ?? 2019 V[employer]safe Inc. Near-Syncope Near-syncope is when you suddenly [...] This can help with dizziness. ??? Take ejvu-zpm-tybmtac and prescription medicines only as told by [...] 08/23/2008 Document Revised: 04/20/2017 Document Reviewed: 11/19/2015 ElseDailybreak Media Interactive Patient Education ?? 2019 V[employer] Inc. Weakness Weakness is a lack of [...] sleep you need each night. ??? Take vcun-wjg-glgmbbf and prescription medicines only as told by [...] about working with a physical therapist or strainer cleaner to help you get stronger. ??? Keep [...] 02/17/2009 Document Revised: 04/01/2016 Document Reviewed: 12/26/2015 [employer] Interactive Patient Education ?? 2019 [employer]. Transverse Myelitis Transverse myelitis is a condition [...] may need to see a nervous information security systems instructor (neurologist) to have tests, which may include: [...] Follow these instructions at home: ??? Take yhse-nkp-iooxlsm and prescription medicines only as told by [...] 02/25/2003 Document Revised: 11/07/2016 Document Reviewed: 08/13/2015 Viz[employer] Interactive Patient Education ?? 2019 [employer]. prednisone (PRED lucas zelda Wallsos What is [...] may report side effects to FDA at 9-808-GTP-8081. What other drugs will affect prednisone? Sometimes [...] may affect prednisone. This includes prescription and rmjr-swn-wtorheh medicines, vitamins, and herbal products. Not all [...] to ensure that the information provided by [employer]. ('Mult[employer]') is accurate, up-to-date, and complete, but no guarantee is made to that effect. Drug information contained herein may be time sensitive. Note information has been compiled for use by healthcare practitioners and consumers in the [place] and therefore Note does not warrant that uses outside of the [place] are appropriate, unless specifically indicated otherwise. [employer] drug information does not endorse drugs, diagnose patients or recommend therapy. [employer] drug information is an informational resource designed [...] or appropriate for any given patient. [facility] does not assume any responsibility for any aspect of healthcare administered with the aid of information [facility] provides. The information contained herein is not intended to cover all possible uses, directions, precautions, warnings, drug interactions, allergic reactions, or adverse effects. If you have questions about the drugs you are taking, check with your doctor, nurse or pharmacist. Copyright 6740-8573 [facility] and [employer]. Version: 10.. Revision Date: 06/15/2018. Emergency Awareness [...] Assistance with quitting is available by contacting 0-221-TGEJ-NOW. This is a free resource providing counseling, [...] range between ( 0.0 and 7.0 ) [facility] #: 0.75 K/uL -- Normal range between ( 0.16 and 1.00 ) Eos #: 0.08 x10(3)/uL -- Normal range between ( 0.00 and 0.80 ) [facility] %: 8.5 % -- Normal range between [...] RBC Morphology: Normal ANC #: 3 K/uL [facility] Percent Man: 9 % -- Normal range [...] ) Urine Bilirubin Dipstick: Negative Urine Specific [place]: 1.020 -- Normal range between ( 1.005 [...] was given the opportunity to ask questions. Patient/Director Critical Care Name: Patient/Director Critical Care Signature: Relationship to Patient: Clinician/Hospital Director Critical Care Signature: Date: Electronically signed by Magan Snyderh Conversion [employer]ed [employer] Boards Pinner [employer]ner at 07/07/2022 9:55 PM CDT documented in this encounter Plan of Treatment Not on file documented as of this encounter Visit Diagnoses Not on filedocumented in this encounter
--- OUTSIDE RECORDS SUMMARY | 2024-11-20 15:10 | XMS_ITS | Encounter Summary ---
Author Organization [employer] ([place], [place], [place], [place]) Address [address] [place] [address] Care Team Providers Care Mail Officer Name Role Phone Unavailable Primary Care Provider Unavailabl e Encounter Details Date Type Department Care Team (Late st Contact Info) Description 02/05/2019 Transcribed Document [facility] Radiology [address] [place] [address] Anne Peters MD [address] [place] [address] [address] [place] [id number] Social History Tobacco Use Types Packs/Day Years [...] Q4H, PRN: Nausea heparin: 5,000 Units, SubCutaneous, [id number] hydrALAZINE: 5 mg, IV Push, Q4H, PRN: Hypertension morphine: 2 mg, IV Push, Q2H, PRN: Pain (Severe 7-10), No qualifying data available , Medications (8) Active Scheduled: (2) famotidine 20 mg tab 20 mg 1 Tab, Oral, Q12H heparin 5,000 Units, SubCutaneous, C10BTmg Continuous: (0) PRN: (6) acetaminophen 325 mg [...] gallop, S1+ S2 No S3 or S4 [place].. Gastrointestinal: Soft, Non-tender, Non-distended, Normal bowel sounds. [...]
--- OUTSIDE RECORDS SUMMARY | 2024-11-20 15:10 | XMS_ITS | Encounter Summary ---
Author Organization [employer] ([place], [place], [place], [place]) Address [address] [place] [address] Care Team Providers Care Fork Lift Truck Operator Name Role Phone Unavailable Primary Care Provider Unavailabl e Encounter Details Date Type Department Care Team (Late st Contact Info) Description 02/11/2019 Transcribed Document [facility] [place] [address] [place] [address] ProviderYusuf MD [facility] [place] [address] Social History Tobacco Use Types [...] - Historical ProviderMD - 02/11/2019 5:00 PM PROJECT GEOLOGIST Chart Check - Review Order Profile Entered [...]
--- OUTSIDE RECORDS SUMMARY | 2024-11-20 15:10 | XMS_ITS | Encounter Summary ---
Author Organization [employer] ([place], [place], [place], [place]) Address [address] [place] [address] Care Team Providers Care Supervisor Mending Name Role Phone Unavailable Primary Care Provider Unavailabl e Encounter Details Date Type Department Care Team (Late st Contact Info) Description 02/06/2019 Transcribed Document [facility] Radiology [address] [place] [address] Anne Peters MD [address] [place] [address] [address] [place] [id number] Social History Tobacco Use Types Packs/Day Years [...] At risk for sleep apnea / IMO [id number] / Confirmed, Active Problems (3) At risk [...] gallop, S1+ S2 No S3 or S4 [place].. Gastrointestinal: Soft, Non-tender, Non-distended, Normal bowel sounds. [...] (FEB 05) Radiology Results (Last 48 hours) [id number] -- 02/05/2019 10:21 MRI Spine Cervical WO [...] cord from the cervicomedullary junction to the C4-P4hchhw. There is mild enhancement of the cord. [...] broad-based posterior disc bulging at C4-C5. At C6-L4rmnuu is a central to left paracentral disc [...]
--- OUTSIDE RECORDS SUMMARY | 2024-11-20 15:10 | XMS_ITS | Encounter Summary ---
Author Organization [employer] ([place], [place], [place], [place]) Address [address] [place] [address] Care Team Providers Care Lead Technical Architect Name Role Phone Unavailable Primary Care Provider Unavailabl e Encounter Details Date Type Department Care Team (Late st Contact Info) Description 02/06/2019 Transcribed Document [facility] [place] [facility] [place] [address] ProviderYusuf MD [facility] [place] [address] Social History Tobacco Use Types [...] - Yusuf ProviderMD - 02/06/2019 11:41 AM CONTINUOUS MINER OPERATOR HELPER Initial Discharge Planning Entered On: 02/06/2019 11:49 EST Performed On: 02/06/2019 11:41 EST by DEOLRIS MCDONALD, Inspector Raw Quartz Initial Assessment I Previously Documented Living Environment [...] Patient's Home Caregiver Medical Durable Power of Office Rep Name : no Legal Guardian : No Is Guardianship Needed : No DELORIS MCDONALD Inspector Raw Quartz - 02/06/2019 11:41 EST Initial Assessment II Sensory and Motor Deficits : Weakness Current Home Treatments and Equipment : Cane, Walker DELORIS MCDONALD Inspector Raw Quartz - 02/06/2019 11:41 EST Discharge Needs I [...] Home Health, Short term rehabilitation DELORIS MCDONALD Inspector Raw Quartz - 02/06/2019 11:41 EST Narrative Note Narrative Note : Talked w/ this 74 yr old W F sent as a direct admit from Dr Boyer's neurology office. Pt has tingling and weakess of both upper and lower extremities as well as inability to control bowel or bladder. Brain imaging revealed mye;opathy and pt admitted for further workup. [facility]/ [facility], is active. Just recently started using [...] RRS is low @ 38. DELORIS MCDONALD Inspector Raw Quartz - 02/06/2019 11:41 EST documented in this encounter Plan of Treatment Not on file documented as of this encounter Visit Diagnoses Not on filedocumented in this encounter
--- OUTSIDE RECORDS SUMMARY | 2024-11-20 15:10 | XMS_ITS | Encounter Summary ---
Author Organization [employer] ([place], [place], [place], [place]) Address [address] [place] [address] Care Team Providers Care Quality And Reliability Engineer Name Role Phone Unavailable Primary Care Provider Unavailabl e Encounter Details Date Type Department Care Team (Late st Contact Info) Description 02/05/2019 Transcribed Document [facility] [place] [address] ProviderYusuf MD [facility] [place] [address] Social History Tobacco Use [...] - Historical ProviderMD - 02/05/2019 10:38 AM CERTIFIED ALCOHOL COUNSELOR Pain Assessment Entered On: 02/09/2019 15:20 EST [...]
--- OUTSIDE RECORDS SUMMARY | 2024-11-20 15:10 | XMS_ITS | Encounter Summary ---
Author Organization [employer] ([place], [place], [place], [place]) Address [address] [place] [address] Care Team Providers Care Nurse Gynecology Name Role Phone Unavailable Primary Care Provider Unavailabl e Encounter Details Date Type Department Care Team (Late st Contact Info) Description 02/15/2019 Transcribed Document [facility] [place] [facility] [place] [address] ProviderYusuf MD [facility] [place] [address] Social History Tobacco Use Types [...] - Yusuf ProviderMD - 02/15/2019 1:24 PM ENVIRONMENTAL SAMPLING TECHNICIAN [facility] [place], [place] [id number] FRANKY DEWITT :1945 Visit Time:02/05/2019 Your Visit [...] Rehabilitation: [facility]/ / Discharge Summary: [phone] faxed [facility] Transportation: Car with family Follow up with Dr. Sue in 2 weeks. Follow up with Dr. Allen as recommended in 2-3 weeks. Discharge Follow Up Instructions: Follow-Up Appointments Follow Up with BRISEIDA SUE MD-GIBSON When Within 1 month Where: [address] [facility] [place] [address]- Medications What How Much When Instructions Next [...] ? Manage bowel and bladder problems. ? [place] with mental health problems. ? Manage pain. [...] 02/25/2003 Document Revised: 11/02/2016 Document Reviewed: 05/21/2014 Collected Inc. Interactive Patient Education ?? 2019 Collected Inc. Inc. Near-Syncope Near-syncope is when you suddenly [...] This can help with dizziness. ??? Take ecml-isr-yzbhpyk and prescription medicines only as told by [...] 08/23/2008 Document Revised: 04/20/2017 Document Reviewed: 11/19/2015 ElseAuth0 Interactive Patient Education ?? 2019 Collected Inc. Inc. Weakness Weakness is a lack of [...] sleep you need each night. ??? Take rhcz-bfe-mosvqgh and prescription medicines only as told by [...] about working with a physical therapist or racehorse trainer to help you get stronger. ??? [...] 02/17/2009 Document Revised: 04/01/2016 Document Reviewed: 12/26/2015 Collected Inc. Interactive Patient Education ?? 2019 [employer]. Transverse Myelitis Transverse myelitis is a condition [...] You may need to see a nervous director of healthcare systems (neurologist) to have tests, which may include: [...] Follow these instructions at home: ??? Take bbvs-gzd-fedqhaq and prescription medicines only as told by [...] 02/25/2003 Document Revised: 11/07/2016 Document Reviewed: 08/13/2015 Collected Inc. Interactive Patient Education ?? 2019 [employer]. prednisone (PRED lucas zelda Wallsos What is [...] may report side effects to FDA at 9-670-XRC-2355. What other drugs will affect prednisone? Sometimes [...] may affect prednisone. This includes prescription and vdcf-tdh-nwysglh medicines, vitamins, and herbal products. Not all [...] to ensure that the information provided by [employer]. ('Multum') is accurate, up-to-date, and complete, but no guarantee is made to that effect. Drug information contained herein may be time sensitive. I[employer] information has been compiled for use by healthcare practitioners and consumers in the [place] and therefore [employer]evolution does not warrant that uses outside of the [place] are appropriate, unless specifically indicated otherwise. [employer] drug information does not endorse drugs, diagnose patients or recommend therapy. [employer] drug information is an informational resource designed [...] effective or appropriate for any given patient. [facility] does not assume any responsibility for any aspect of healthcare administered with the aid of information [facility] provides. The information contained herein is not intended to cover all possible uses, directions, precautions, warnings, drug interactions, allergic reactions, or adverse effects. If you have questions about the drugs you are taking, check with your doctor, nurse or pharmacist. Copyright 9643-2620 [facility] [employer]. Version: 10.. Revision Date: 06/15/2018. Emergency Awareness [...] Assistance with quitting is available by contacting 1-202-ZADO-NOW. This is a free resource providing counseling, [...] range between ( 0.0 and 7.0 ) [place] #: 0.75 K/uL -- Normal range between ( 0.16 and 1.00 ) Eos #: 0.08 x10(3)/uL -- Normal range between ( 0.00 and 0.80 ) [place] %: 8.5 % -- Normal range between [...] RBC Morphology: Normal ANC #: 3 K/uL [place] Percent Man: 9 % -- Normal range [...] ) Urine Bilirubin Dipstick: Negative Urine Specific [place]: 1.020 -- Normal range between ( 1.005 [...] was given the opportunity to ask questions. Patient/Police Artist Name: Patient/Police Artist Signature: Relationship to Patient: Clinician/Hospital Police Artist Signature: Date: documented in this encounter Plan of Treatment Not on file documented as of this encounter Visit Diagnoses Not on filedocumented in this encounter
--- OUTSIDE RECORDS SUMMARY | 2024-11-20 15:10 | XMS_ITS | Encounter Summary ---
Author Organization [employer] ([place], [place], [place], [place]) Address [address] [place] [address] Care Team Providers Care Drive In Waiter/Waitress Name Role Phone Unavailable Primary Care Provider Unavailabl e Encounter Details Date Type Department Care Team (Late st Contact Info) Description 02/12/2019 Transcribed Document [facility] [place] Family Medicine [address] [place] [address] ProviderYusuf MD [facility] [place] [address] Social History Tobacco Use Types [...] - Historical ProviderMD - 02/12/2019 5:00 AM COOK TACO Chart Check - Review Order Profile Entered On: 02/12/2019 7:02 EST Performed On: 02/12/2019 5:00 EST by JAYA WASHINGTON REGISITERED_ Chart Check Powerplans Initiated/Discontinued as Appropriate : Yes All Active Orders Reviewed : Yes JAYA WASHINGTON REGISITERED_ - 02/12/2019 7:02 EST Electronically signed by Lillian [employer] Conversion Loom Setter [employer]inier [employer]ner at 07/07/2022 9:55 PM CDT documented in this encounter Plan of Treatment Not on file documented as of this encounter Visit Diagnoses Not on filedocumented in this encounter
--- OUTSIDE RECORDS SUMMARY | 2024-11-20 15:10 | XMS_ITS | Encounter Summary ---
Author Organization [employer] ([place], [place], [place], [place]) Address [address] [place] [address] Care Team Providers Care Drying Machine Back Tender Name Role Phone Unavailable Primary Care Provider Unavailabl e Encounter Details Date Type Department Care Team (Late st Contact Info) Description 02/15/2019 Transcribed Document [facility] [place] [address] [place] [address] ProviderYusuf MD [facility] [place] [address] Social History Tobacco Use Types [...] - Historical ProviderMD - 02/15/2019 2:00 AM BIOLOGICAL CHEMIST Geodetic Engineer Details Entered On: 02/15/2019 6:48 EST Performed [...]
--- OUTSIDE RECORDS SUMMARY | 2024-11-20 15:10 | XMS_ITS | Encounter Summary ---
Author Organization [employer] ([place], [place], [place], [place]) Address [address] [place] [address] Care Team Providers Care Breaker Up Machine Operator Name Role Phone Unavailable Primary Care Provider Unavailabl e Encounter Details Date Type Department Care Team (Late st Contact Info) Description 02/11/2019 Transcribed Document [facility] [place] [facility] [place] [address] ProviderYusuf MD [facility] [place] [address] Social History Tobacco Use [...] - Historical ProviderMD - 02/11/2019 1:30 PM CRANE HELPER Pain Assessment Entered On: 02/11/2019 15:30 EST [...]
--- OUTSIDE RECORDS SUMMARY | 2024-11-20 15:11 | XMS_ITS | Encounter Summary ---
Author Organization [facility] ([place], [place], [place], [place]) Address [address] [place] [address] Care Team Providers Care Corporate Statistical Financial Analyst Name Role Phone Unavailable Primary Care Provider Unavailabl e Encounter Details Date Type Department Care Team (Late st Contact Info) Description 02/15/2019 Transcribed Document [facility] [place] [facility] [place] [address] ProviderYusuf MD [facility] [place] [address] Social History Tobacco Use [...] - Yusuf ProviderMD - 02/15/2019 11:32 AM INVESTMENTS MANAGER Final Discharge Planning Entered On: 02/15/2019 11:35 EST Performed On: 02/15/2019 11:32 EST by ALECIA GOMEZ RN-Trimmer Operator Final Discharge Planning Discharge Arrangements : Patient Post-Acute Information Patient Name: FRANKY DEWITT Gender: Female : [birth year] Age: 74 Years [place] Referral(s): Service: Organization: Business Address: Phone Number: Acute Rehab [facility] [address] [place], [address] Patient Offered Choice/Affiliations Explained : Yes Transportation Needs : Family/Friend ALECIA GOMEZ RN-Trimmer Operator - 02/15/2019 11:32 EST Final Narrative Note Final Narrative Note : CM reviewed chart. CM met with pt to discuss DCP. [facility] spinal Cord unti today. will transport. IM and choice signed. Report to Rehabilitation: [facility] spinal cord unit/ Discharge Summary: [phone] faxed [facility] Follow up with Dr. Sue in 2 weeks. Pt informed. Follow up with Dr. Allen as recommended in 2-3 weeks. Pt informed. Historical Narrative Note : CM reviewed chart. RRS 32. CM met to discuss DCP. [facility] spinal cord unit today. will transport. IM and Choice signed.. Cm informed pharmacy and bedside RN. Confirmed with [facility]. No further needs noted. ALECIA GOMEZ, RN-Trimmer Operator - 02/15/19 11:02:20 ALECIA GOMEZ, JONATAN-Trimmer Operator - 02/15/2019 11:32 EST documented in this encounter Plan of Treatment Not on file documented as of this encounter Visit Diagnoses Not on filedocumented in this encounter
--- OUTSIDE RECORDS SUMMARY | 2024-11-20 15:11 | XMS_ITS | Encounter Summary ---
Author Organization [employer] ([place], [place], [place], [place]) Address [address] [place] [address] Care Team Providers Care Building Insulation Supervisor Name Role Phone Unavailable Primary Care Provider Unavailabl e Encounter Details Date Type Department Care Team (Late st Contact Info) Description 02/16/2019 Transcribed Document [facility] [place] [facility] [place] [address] ProviderYusuf MD [facility] [address] Social History Tobacco Use [...] - Historical ProviderMD - 02/16/2019 7:49 AM CREDIT UNION MANAGER Discharge Summary, PT Entered On: 02/16/2019 [...] with a Rwx. She was D/C to [facility] for follow up rehab. ROBERT [...] ROBERT TINAJERO, PT - 02/16/2019 7:49 EST Decorating Consultant Goals Mobility/Bed Mobility LTG PT Grid Goal [...] 02/16/2019 7:49 EST Electronically signed by Lillian [facility] Conversion Senior Mechanical Engineer Cerner at 07/07/2022 9:48 PM CDT documented in this encounter Plan of Treatment Not on file documented as of this encounter Visit Diagnoses Not on filedocumented in this encounter
--- OUTSIDE RECORDS SUMMARY | 2024-11-20 15:11 | XMS_ITS | Referral Summary ---
Author Organization [employer] ([place], [place], [place], [place]) Address [address] [place] [address] Care Team Providers Care Dairy Frozen Manager Name Role Phone Unavailable Primary Care [...]
--- OUTSIDE RECORDS SUMMARY | 2024-11-20 15:11 | XMS_ITS | Clinical Summary ---
Author Organization [employer] ([place], [place], [place], [place]) Address [address] [place] [address] Care Team Providers Care Change Analyst Name Role Phone Unavailable Primary Care [...]
[2024-11-20 15:18] VITALS: BP 158/85; PULSE 93; RESP 18; TEMP 36.4; O2SAT 98
[2024-11-20] MEDS: ERTAPENEM SODIUM 1 GM VIAL IM (15:18)
== END 2024-11-20 15:26 | disposition home or self-care (01) ==
LOC: INF 15:06
PROVIDERS: PCP Family Medicine; Visit Provider Family Medicine
DX: N39.0 Urinary tract infection, site not specified (principal)
CPT/HCPCS: 96372; J1335

== ENCOUNTER 2024-11-29 14:15 | Outpatient (CLI) | payer MEDICARE, OTHER, SELFPAY ==
--- OUTSIDE RECORDS SUMMARY | 2024-10-17 06:15 | XMS_ITS ---
Author Organization [facility] Address [address] [place] [id number] Care Team Providers Care Sports Book Board Attendant Name Role Phone Reece Santiagoian Primary Care Provider [phone] Allergies Allergen (clinical drug ingredient) Drug/Non Drug Allergy documented on EMR Reaction Allergy Type Onset Date Status lisinopril Lisinopril hives Drug Allergy Activ e Penicillin rash Drug Allergy Active Results Component Value Reference Range Notes Urinalysis - Inhouse Reviewed date:10/18/2024 08:08:18 AM Interpretation: Performing Lab: Notes/Report: Color/Clarity light yellow/cloudy Leuk 2+ Nitrite neg Urobili 3.2 Protein neg pH 6.0 Blood 1+ Sp. Gr. 1.010 Ketone neg Bili neg Gluc neg X ray : Knee, left Reviewed date:11/05/2024 01:49:15 PM Interpretation:mild OA Performing Lab: Notes/Report: mild OA REASON FOR VISIT Possible UTI Medications Medication SIG (Take, Route, Frequency, Duration) Notes Start Date End Date Status Losartan Potassium 25 MG Take 1 tablet b y mouth once daily; Duration: 90 Active Pregabalin 150 MG 1 cap(s) orally 2 ti mes a day; Duration: 90 days 09/03/2024 Active DULoxetine HCl 60 MG Take 1 capsule by m outh once daily; Duration: 90 Active Eliquis 5 MG 1 tablets Orally twi ce a day; Duration: 30 days Active Hyoscyamine Sulfate 0.125 MG 1 tablet as needed Orally every 4 hrs 07/18/2024 Active Pantoprazole Sodium 40 MG 1 tablet 1/2 t o 1 hour before morning meal Orally Once a day; Duration: 30 day(s) 07/10/2024 Active Claritin 10 MG 1 tab(s) orally once a day Active Vitamin D3 25 MCG (1000 UT) 1 cap(s) ora lly once a day; Duration: 30 day(s) Active predniSONE 5 MG 1 tablet Orally Once a day; Duration: 30 day(s) Active Methotrexate Sodium 2.5 MG as directed Orally Active Folic Acid 1 MG 1 tablet Orally Once a day; Duration: 30 day(s) Active Mycophenolate Mofetil 250 MG 1 capsule O rally Twice a day; Duration: 30 day(s) Active Fish Oil 100MG Activ e Methenamine Hippurate 1 GM 1 tablet Oral ly once daily Active Problems Problem Type SNOMED Code ICD Code Onset Dates Problem Status W/U Status Risk Notes Problem Obesity (381926935) Non morbid obesity (E66.9) Active confirmed Vital Signs Weight 207.8 lbs 10/17/2024 Blood pressure systolic 122 mm Hg 10/18/19 25 Blood pressure diastolic 76 mm Hg 025 Heart Rate 88 /min 10/17/2024 Height 65 in 10/17/2024 BMI 34.58 kg/m2 10/17/2024 Encounters Encounter Location Date Provider Diagnosis [facility] [address] [facility] [address] [place] [id number] 10/17/2024 Jensen Ellsworth Chronic UTI N39.0 ; Pain in left knee M25.562 and Non morbid obesity E66.9 Assessments Encounter Date Diagnosis (ICD Code) Assessment Notes Treatment Notes Treatment Clinical Notes Section Notes 10/17/2024 Chronic UTI (ICD-10 - N39.0) 10/17/2024 Pain in left knee (ICD-10 - M25.562) 10/17/2024 Non morbid obesity (ICD-10 - E66.9) Discussed starting Wegovy Plan Of Treatment Treatment Notes Assessment Notes Non morbid obesity Discussed starting W egovy Next Appt Details Follow Up: via phone to repo rt test results, Reason: Progress Notes * Lan DEWITTOB: 7 (79 yo F)Acc No.[id number]:10/17/2024 Progress Notes Patient: Ken CHA Kelli Provider: Kacie Santiago M.D. :1945 A ge:79 Y S ex:Female Date:10/17/2024 Address:[address] [place] [address] KHOI JOSE, [id number] Subjective: * Chief Complaints: * 1 . Possible UTI. * HPI: U rology: 79 year old female presents with c/o frequent urination s mall amount. c/o burning sensation d uring urination, has an appointment with Urology later this week. Denies : flank pain. * ROS: D ERMATOLOGY: no R carlita. [...] Knee 12/08/18. 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 * Family History: F ather: 75 yrs, CHF, diagnosed with Heart Disease. M other: alive 89 yrs, Kidney problems, COPD, CHF, diagnosed with Heart Disease. 1 sister(s) . 1 son(s) , 2 daughter(s) . .? * Social History: C URRENT TOBACCO USE: No . C affeine: yes, frequency: coffee 4 cups [...] cap(s) orally once a day , Taking Pantoprazole Sodium 40 MG Tablet Delayed Release 1 tablet 1/2 to 1 hour before morning meal Orally Once a day , Taking Hyoscyamine Sulfate 0.125 MG Tablet 1 tablet as needed Orally every 4 hrs , Taking DULoxetine HCl 60 MG Capsule Delayed Release Particles Take 1 capsule by mouth once daily , Taking Pregabalin 150 MG Capsule 1 cap(s) orally 2 times a day , Taking Losartan Potassium 25 MG Tablet Take 1 tablet by mouth once daily , Taking Eliquis 5 MG Tablet 1 tablets Orally twice a day , Discontinued Mupirocin 2 % Ointment 1 application Externally Twice a day , Discontinued Bactrim DS 800-160 MG Tablet 1 tablet Orally twice a day , Medication List reviewed and reconciled with the patient * Allergies: P enicillin: rash, Lisinopril: hives. Objective: * Vitals: W t: 207.8, Temp: 97.7, BP: 122/76, HR: 88, Nurse: sabrina, Ht: 65, BMI:34.58. * Examination: G eneral Examination: General Appearance: N AD, walks with the assistance of a cane. H eart: R SR. L ungs: c lear to auscultation. B ack: no CVA tenderness. K nee / Cameron: Knee: l eft. P alpation: t enderness on medial and lateral joint lines. Assessment: * Assessment: 1. C hronic UTI - N39.0 (Primary) 2 . P ain in left knee - M25.562 ? 3 . N on morbid obesity - E66.9 Plan: * Treatment: Value Reference Range C olor/Clarity light yellow/cloudy * L euk 2+ * N itrite neg * U robili 3.2 * P rotein neg * p H 6.0 * B lood 1+ * S p. Gr. 1.010 * K etone neg * B antolin neg * G jl neg * Delores Stewart 10/17/2024 1 1:04:44 AM EDT > Provider reviewed results while patient in office. 2.?Pain in left knee?Imaging: X ray : Knee, left (Performed Date - 10/23/2024)?mild OA* Jensen Santiago 10/25/2024 1 2:42:46 PM EDT > Xrays show arthritic changes in knee, sent to to inform.Marline Henrietta 11/05/2024 01:48:48 PM EDT > pt informed. 3.?Non morbid obesity? Notes: Discussed starting Wegovy?? * Procedure Codes: G 2211 Complex e/[place], [address] Urinalysis, no micro, 1036F TOBACCO NON- USER, G8783 BP SCR PRFRM RCMDD DEFIND SCR INTVL, G8752 MOST RECENT SYSTOLIC BP < 140MM HG, G8754 MOST RECENT DIASTOLIC BP < 90MM HG * Follow Up: v ia phone to report test results * Images: Billing Information: * Visit Code: 56700 Office Visit, Est Pt., Level 3. * Procedure Codes: G2211 Complex e/[place]. [address] Urinalysis, no micro. 1036F TOBACCO NON-USER. G8783 BP SCR PRFRM RCMDD DEFIND SCR INTVL. G8752 MOST RECENT SYSTOLIC BP < 140MM HG. G8754 MOST RECENT DIASTOLIC BP < 90MM HG. * Electronic signature of Valencia Santiago MD on 11/29/2024 at 02:42 PM EDT Sign off status: Pending * Provider: Kacie Santiago M.D. Date: 0 10/17/2024 Generated for Drew reza/Shanelle/Chetitting on: 0 11/29/2024 02:42 PM EDT History and Physical Notes * HPI (History of Present Illness) Category Sub-Category Detail Notes Category Not es Urology frequent urination small amount burning sensation during urination, castillo s an appointment with Urology later this week flank pain Examination Category Sub-Category Detail Notes Category Not es General Examination Heart: RSR Lungs: clear to auscultatio n General Appearance: NAD, walks with the assistance of a cane Back: no CVA tenderness Knee / Cameron Palpation: tenderness on medial and lat eral joint lines Knee: left
--- OUTSIDE RECORDS SUMMARY | 2024-11-05 10:45 | XMS_ITS ---
Author Organization [facility] Address [address] [place] [id number] Care Team Providers Care Biodiesel Engineering Manager Name Role Phone Jensen Santiago Primary Care Provider [phone] Allergies Allergen (clinical drug ingredient) Drug/Non Drug Allergy documented on EMR Reaction Allergy Type Onset Date Status lisinopril Lisinopril hives Drug Allergy Activ e Penicillin rash Drug Allergy Active Results Component Value Reference Range Notes Urinalysis - Inhouse Reviewed date:11/06/2024 09:02:02 AM Interpretation: Performing Lab: Notes/Report: Color/Clarity Yellow/Cloudy Leuk 3+ Nitrite Neg Urobili 3.2 Protein Trace pH 5.5 Blood Trace-Intact Sp. Gr. 1.015 Ketone Neg Bili Neg Gluc Neg P-Culture, Urine Reviewed date:11/09/2024 01:30:44 PM Interpretation:sensitive Performing Lab: Notes/Report: CLIA: [id number] Danilo Duran MD, Mobile Application Tester [facility] , [address], [place] [address] Test performed by [employer], [place] Specimen Source Urine - Cath Culture, Urine See Below See Microbiol ogy Report Escherichia coli ESBL 50,000-100,000 CFU /ml Escherichia coli ESBL This isolate is a confirmed ESBL (Extended Spectrum Beta-Lactamase) promotions producer and should be considered clinically resistant to all penicillins, cephalosporins and aztreonam. Sensitivity Panel See Below ____ Organism E.coli ESBL Antibiotic INTERP ____ Amikacin S Ampicillin R Aztreonam R Cefepime R Cefoxitin S Ceftazidime R Ceftriaxone R Cefuroxime R Ciprofloxacin R Ertapenem S Gentamicin S Imipenem S Levofloxacin R Meropenem S Nitrofurantoin S Piperacillin/Tazo S Tetracycline R Tobramycin S Trimeth/Sulfa S ___ S=SUSCEPTIBLE I=INTERMEDIATE R=RESISTANT Medications Medication SIG (Take, Route, Frequency, Duration) Notes Start Date End Date Status DULoxetine HCl 60 MG Take 1 capsule by m yasmeen once daily; Duration: 90 Active Pregabalin 150 MG 1 cap(s) orally 2 ti mes a day; Duration: 90 days 09/03/2024 Active Losartan Potassium 25 MG Take 1 tablet b y mouth once daily; Duration: 90 Active Eliquis 5 MG 1 tablets Orally twi ce a day; Duration: 30 days Active Hyoscyamine Sulfate 0.125 MG 1 tablet as needed Orally every 4 hrs 07/18/2024 Active Claritin 10 MG 1 tab(s) orally once a day Active Vitamin D3 25 MCG (1000 UT) 1 cap(s) ora lly once a day; Duration: 30 day(s) Active Pantoprazole Sodium 40 MG 1 tablet 1/2 t o 1 hour before morning meal Orally Once a day; Duration: 30 day(s) 07/10/2024 Active Folic Acid 1 MG 1 tablet Orally Once a day; Duration: 30 day(s) Active Fish Oil 100MG Activ e Mycophenolate Mofetil 250 MG 1 capsule Orally Twice a day; Duration: 30 day(s) Active Methenamine Hippurate 1 GM 1 tablet Oral ly once daily Active Sulfamethoxazole-Trimethopr im 800-160 MG 1 tablet Orally twice a day; Duration: 5 days 11/05/2024 Active Methotrexate Sodium 2.5 MG as directed Orally Active predniSONE 5 MG 1 tablet Orally Once a day; Duration: 30 day(s) Active Wegovy 0.25 MG/0.5ML 0.5 mL Subcutaneous once a week; Duration: 30 days 10/23/2024 Active Vital Signs Weight 208.4 lbs 11/05/2024 Blood pressure systolic 132 mm Hg 11/06/19 25 Blood pressure diastolic 80 mm Hg 025 Heart Rate 97 /min 11/05/2024 Height 65 in 11/05/2024 BMI 34.68 kg/m2 11/05/2024 Encounters Encounter Location Date Provider Diagnosis [facility] [address] [place] [phone] 11/05/2024 Jensen Santiago Chronic UTI N 39.0 Assessments Encounter Date Diagnosis (ICD Code) Assessment Notes Treatment Notes Treatment Clinical Notes Section Notes 11/05/2024 Chronic UTI (ICD-10 - N39.0) Plan Of Treatment Medication Medication Name Sig Start Date Stop Date Notes Sulfamethoxazole-Trimethopri m 800-160 MG 1 tablet Orally twice a day; Duration: 5 days 11/05/2024 Next Appt Details Follow Up: via phone to repo rt test results, Reason: Progress Notes * Jaci SCOTTenDOB: 7 (79 yo F)Acc No.[id number]:11/05/2024 Progress Notes Patient: Kelli THOMAS Provider: Kacie Santiago M.D. :1945 A ge:79 Y S ex:Female Date:11/05/2024 Address:[facility] [place], [id number] Subjective: * Chief Complaints: * * HPI: U rology: 79 year old female presents with c/o burning sensation P t complains of ongoing burning with urination. Pt states it is very painful to self cath. Pt states she has been on 2 abx but has not had any relief. She saw Dr. Kingston last week and he instructed her to finish the Cefuroxime she was taking. * ROS: D ERMATOLOGY: no R carlita. [...] 1 tablets Orally twice a day , Taking Wegovy 0.25 MG/0.5ML Solution Auto-injector 0.5 mL Subcutaneous once a week , Discontinued Cefuroxime Axetil 500 MG Tablet 1 tablet Orally every 12 hrs , Medication List reviewed and reconciled with the patient * Allergies: P enicillin: rash, Lisinopril: hives. Objective: * Vitals: W t: 208.4, Temp: 98.1, BP: 132/80, HR: 97, Nurse: cole, Ht: 65, BMI:34.68. * Examination: G eneral Examination: General Appearance: N AD. H eart: R SR. L ungs:?clear to auscultation. Assessment: * Assessment: 1. C hronic UTI - N39.0 (Primary) Plan: * Treatment: Value Reference Range C ulture, Urine See Below - * S pecimen Source Urine - Cath - * S ensitivity Panel See Below - * E scherichia coli ESBL 50,000-100,000 CFU/ml Escherichia coli ESBL - * Shabnam Amor 11/09/2024 10:2 3:34 AM EDT >pt started on sulfameth/trimethKing Kisha 11/09/2024 01:30:37 PM EDT > Pt notified ?LAB: Urinalysis - Inhouse (Collection Date & Time - 11/05/2024)* Value Reference Range C olor/Clarity Yellow/Cloudy * L euk 3+ * N itrite Neg * U robili 3.2 * P rotein Trace * p H 5.5 * B lood Trace-Intact * S p. Gr. 1.015 * K etone Neg * B antolin Neg * G jl Neg * Kisha John 11/05/2024 02:53: 43 PM EDT > Provider reviewed results while patient in office. * Procedure Codes: G 2211 Complex e/[place], [address] Urinalysis, no micro, 1036F TOBACCO NON- USER, G8783 BP SCR PRFRM RCMDD DEFIND SCR INTVL, G8752 MOST RECENT SYSTOLIC BP < 140MM HG, G8754 MOST RECENT DIASTOLIC BP < 90MM HG * Follow Up: v ia phone to report test results * Images: Billing Information: * Visit Code: 21688 Office Visit, Est Pt., Level 3. * Procedure Codes: G2211 Complex e/[place]. [address] Urinalysis, no micro. 1036F TOBACCO NON-USER. G8783 BP SCR PRFRM RCMDD DEFIND SCR INTVL. G8752 MOST RECENT SYSTOLIC BP < 140MM HG. G8754 MOST RECENT DIASTOLIC BP < 90MM HG. * Electronic signature of Valencia Santiago MD on 11/29/2024 at 02:41 PM EDT Sign off status: Pending * Provider: Kacie Santiago M.D. Date: 0 11/05/2024 Generated for Drew reza/Shanelle/Chetitting on: 0 11/29/2024 02:41 PM EDT History and Physical Notes * HPI (History of Present Illness) Category Sub-Category Detail Notes Category Not es Urology burning sensation Pt complains o f ongoing burning with urination. Pt states it is very painful to self cath. Pt states she has been on 2 abx but has not had any relief. She saw Dr. Kingston last week and he instructed her to finish the Cefuroxime she was taking Examination Category Sub-Category Detail Notes Category Not es General Examination Heart: RSR Lungs: clear to auscultatio n General Appearance: NAD
--- OUTSIDE RECORDS SUMMARY | 2024-11-13 06:30 | XMS_ITS ---
Author Organization [facility] Address [address] [place] [phone] Care Team Providers Care Optician Apprentice Name Role Phone Jenesn Santiago Primary Care Provider [phone] Allergies Allergen (clinical drug ingredient) Drug/Non Drug [...] date:11/16/2024 09:04:33 AM Interpretation: Performing Lab: Notes/Report: CLIA: [id number] Danilo Duran MD, Convention Services Director [address] [place] [address] , [address], [place] [address] Test performed by [employer], [employer] Specimen Source Urine - Cath Culture, Urine See Below See Microbiol ogy Report Klebsiella pneumoniae ESBL 25,000-50,000 CFU/ml Klebsiella pneumoniae ESBL This isolate is a confirmed ESBL (Extended Spectrum Beta-Lactamase) interactive producer and should be considered clinically resistant [...] Problem Status W/U Status Risk Notes Problem Herniation of rectum into vagina (637335277) Rectocele, female (N81.6) Active confirmed Vital Signs Weight 204.4 lbs 11/13/2024 Blood pressure systolic 132 mm Hg 11/14/19 25 Blood pressure diastolic 70 mm Hg 025 Heart Rate 107 /min 11/13/2024 Height 65 in 11/13/2024 BMI 34.01 kg/m2 11/13/2024 Encounters Encounter Location Date Provider Diagnosis [facility] [address] [place], [place] [phone] 11/13/2024 Jensen Santiago Chronic UTI N39.0 ; [...] * Jaci SCOTTenDOB: 7 (79 yo F)Acc No.[id number]:11/13/2024 Progress Notes Patient: Kelli THOMAS Provider: Kacie Santiago M.D. :1945 A ge:79 Y S ex:Female Date:11/13/2024 Address:[address] [place] [address] [place], [id number] Subjective: * Chief Complaints: * 1 . [...] 25,000-50,000 CFU/ml Klebsiella pneumoniae ESBL - * Zuleyma, Shabnam 11/16/2024 09:0 4:27 AM EDT > See [...] G 2211 Complex e/[place], [address] Urinalysis, no micro, [address] CAPILLARY BLOOD DRAW, 58176 CBC WITH AUTO DIFF * Follow Up: v ia phone to report test results * Images: Billing Information: * Visit Code: 51326 Office Visit, Est Pt., Level 4. * Procedure Codes: G2211 Complex e/[place]. [address] Urinalysis, no micro. 77391 CAPILLARY BLOOD DRAW. 77812 CBC WITH AUTO DIFF. * Electronic signature of Valencia Santiago MD on 11/29/2024 at 02:40 PM EDT Sign off status: Pending * Provider: Kacie Santiago M.D. Date: 0 11/13/2024 Generated for Drew reza/Shanelle/Chetitting on: 0 11/29/2024 02:40 PM EDT History and Physical Notes * [...]
--- OUTSIDE RECORDS SUMMARY | 2024-11-16 05:03 | XMS_ITS ---
Author Organization [facility] Address [address] [facility] [address] [place] [phone] Care Team Providers Care Design Teacher Name Role Phone Jensen Santiago Primary Care Provider REASON FOR VISIT abnormal urine cx Medications Medication SIG (Take, Route, Fr equency, Duration) Notes Start Date End Date Status Ertapenem Sodium 1 GM 1 gram IM Injectio n daily; Duration: 5 days 11/16/2024 Active Encounters Encounter Location Date Provider Diagnosis [facility] [address] [facility] [address] [place] [id number] 11/16/2024 Jensen Santiago Acute UTI N39.0 Assessments Encounter Date Diagnosis (ICD Code) Assessment Notes Treatment Notes Treatment Clinical Notes Section Notes 11/16/2024 Acute UTI (ICD-10 - N39.0) Plan Of Treatment Medication Medication Name Sig Start Date Stop Date Notes Ertapenem Sodium 1 GM 1 gram IM Injectio n daily; Duration: 5 days 11/16/2024 Progress Notes * Lan DEWITTOB: 7 (79 yo F)Acc No.[id number]:11/16/2024 Patient: Kelli THOMAS :1945 A ge:79 Y S ex:Female Address:[address] [facility] [place], [address] * Refills Start Ertapenem Sodium Solution Reconstituted, [...] * true * Date: Generated for Drew reza/Shanelle/Berlinsmitting on: 0 11/29/2024 02:42 PM EDT
--- OUTSIDE RECORDS SUMMARY | 2024-11-29 14:42 | XMS_ITS | Clinical Summary ---
Author Organization Healthcare Address [address] [place] [address] Care Team Providers Care Roof Panel Hanger Name Role Phone Jensen Santiago MD Primary Care Provider [phone] Allergies Active Allergy Reactions Criticality Noted Date [...] or (1 - 1-dose 75+ series) 2022 [id number] Vaccine (2024- season) 2024 12/16/2021, 07/31/2021, 01/28/2021, Additional history exists UKY-Influenza [...] age to complete this topic Insurance MEDICARE [facility] Care Teams Roof Panel Hanger Relationship Specialty Start Date End Date Jensen Santiago MD [address] [place] [id number] PCP - General 12/11/20
--- OUTSIDE RECORDS SUMMARY | 2024-11-29 14:42 | XMS_ITS | Patient Health Record ---
[facility] Address [address] [place] [id number] Care Team Providers Care Quantitative Analyst Marketing Name Role Phone Jensen Santiago Primary Care Provider Marynane Malik Unavailable [phone] Allergies Allergen (clinical drug ingredient) Drug/Non Drug [...] Interpretation:sensitive Performing Lab: Notes/Report: Test performed by [employer] [address] [place] [address] , [address], [place] [address] Danilo Duran MD, Delivery And Installation Subcontractor CLIA: [id number] Specimen Source Urine - Cath Culture, Urine See Below See Microbiol ogy Report Escherichia coli ESBL 50,000-100,000 CFU /ml Escherichia coli ESBL This isolate is a confirmed ESBL (Extended Spectrum Beta-Lactamase) video game producer and should be considered clinically resistant [...] Interpretation: Performing Lab: Notes/Report: Test performed by [email or web address], [address] , [facility], [place] [address] Danilo Duran MD, Delivery And Installation Subcontractor JENN: [id number] Specimen Source Urine - Cath Culture, Urine See Below See Microbiol ogy Report Klebsiella pneumoniae ESBL 25,000-50,000 CFU/ml Klebsiella pneumoniae ESBL This isolate is a confirmed ESBL (Extended Spectrum Beta-Lactamase) video game producer and should be considered clinically resistant [...] Trimeth/Sulfa R ___ S=SUSCEPTIBLE I=INTERMEDIATE R=RESISTANT H-BMP Reviewed date:11/20/2024 09:51:14 AM Interpretation:BUN 21, eGFR 54 Performing Lab: Notes/Report: NA 139 136-145 mmol/L K 3.9 3.5-5.1 mmoL/L CL 105 98-107 mmol/L CO2 28 22.0-30.0 mmol/L GAP 9.9 5-15 mEq/L BUN 21 7-17 mg/dl CREATT 1.00 0.52-1.04 mg/dl GFRAA 65 >60 ML/MIN EGFR 54 >60 ml/min GLU 94 74-100 mg/dl CA 9.7 8.4-10.2 mg/dl Covid test (in house) Reviewed date:12/09/2023 10:22:50 [...] See 01/09/24 Order Urinalysis - Inhouse Reviewed date:03/10/2024 11:06:10 AM Interpretation: Performing Lab: Notes/Report: Color/Clarity orange Leuk 3+ Nitrite pos Urobili 16 Protein 2+ pH 5.0 Blood trace-intact Sp. Gr. 1.020 Ketone trace Bili neg Gluc trace P-Culture, Urine Reviewed date:03/13/2024 10:55:09 AM Interpretation:Klebsiella pneumoniae Performing Lab: Notes/Report: Test performed by [email or web address], [address] , [address] , [place] [address] Danilo Duran MD, Delivery And Installation Subcontractor CLIA: [id number] Specimen Source Urine - Void Culture, Urine See Below See Microbiol ogy Report Klebsiella pneumoniae ESBL 50,000-100,000 CFU/ml Klebsiella pneumoniae ESBL This isolate is a confirmed ESBL (Extended Spectrum Beta-Lactamase) video game producer and should be considered clinically resistant [...] Interpretation: Performing Lab: Notes/Report: Test performed by [email or web address], [facility] [address] [place] [address] , [address], [place] [address] Danilo Duran MD, Delivery And Installation Subcontractor CLIA: [id number] Specimen Source Urine - Void Culture, Urine See Below See Microbiol ogy Report Klebsiella pneumoniae ESBL 50,000-100,000 CFU/ml Klebsiella pneumoniae ESBL This isolate is a confirmed ESBL (Extended Spectrum Beta-Lactamase) video game producer and should be considered clinically resistant [...] Coli Performing Lab: Notes/Report: Test performed by [facility] [address] , [address], [place] [address] Danilo Duran MD, Delivery And Installation Subcontractor CLIA: [id number] Specimen Source Urine - Void Culture, Urine See Below See Microbiol ogy Report Escherichia coli ESBL 50,000-100,000 CFU /ml Escherichia coli ESBL This isolate is a confirmed ESBL (Extended Spectrum Beta-Lactamase) video game producer and should be considered clinically resistant [...] S=SUSCEPTIBLE I=INTERMEDIATE R=RESISTANT Urinalysis - Inhouse Reviewed date:10/18/2024 08:08:18 AM Interpretation: Performing Lab: Notes/Report: Color/Clarity light yellow/cloudy Leuk 2+ Nitrite neg Urobili 3.2 Protein neg pH 6.0 Blood 1+ Sp. Gr. 1.010 Ketone neg Bili neg Gluc neg Mammogram Reviewed date:09/19/2024 01:22:46 PM Interpretation:Negative Performing Lab: Notes/Report: Negative result negative TEN-UTI panel Reviewed date:10/19/2024 08:23:33 AM Interpretation:Klebsiella pneumoniae Performing Lab: Notes/Report: Klebsiella pneumoniae X ray : Knee, left Reviewed date:11/05/2024 01:49:15 PM Interpretation:mild OA Performing Lab: Notes/Report: mild OA TEN-UTI panel Reviewed date:01/11/2024 02:47:23 PM Interpretation:Abnormal Performing Lab: Notes/Report: Abnormal Reason For Referral Diagnosis 1 Neurogenic bladder ( N31.9) [facility]erring Provider First Name Jensen Referring Provider Last Name Pamela Referring Provider [facility] ctice Referred Provider Adam Kingston Referred Provider Specialty Urology General Notes Ninfa Correa 05/18/19 11:15:42 AM > faxed referral to 's office Referral Priority Routine Reason [facility] Diagnosis 1 Chronic UTI (N39.0) Diagnosis 2 Urinary retention (R 33.9) Diagnosis 3 Urinary incontinence in female (R32) Diagnosis 4 Bladder spasms (N32. 89) [facility] Referring Provider First Name Jensen Referring Provider Last Name Pamela Referring Provider [facility] ctice Referred Provider Specialty Urology General Notes Ninfa Correa 2024 10:53:56 AM > faxed referral to [facility] Referral Priority Routine Diagnosis 1 Urinary retention (R 33.9) Diagnosis 2 Chronic UTI (N39.0) Diagnosis 3 Other urinary incont inence (N39.498) Diagnosis 4 Neurogenic bladder ( N31.9) [facility] Referring Provider First Name Jensen Referring Provider Last Name Coward Referring Provider Speciality Family Pra ctice Referred Provider Fifi [place] General Notes Ninfa Correa 2024 08:45:29 AM > faxed referral to [facility] Urogynecology Referral Priority Routine Medications Medication [...] 1 tab(s) orally once a day Active Wegovy 0.5 MG/0.5ML 0.5 mL Subcutaneous once a week; Duration: 30 days 11/22/2024 Active Vitamin D3 25 MCG (1000 UT) [...] 05/11/2018 Administered xFlu shot- 6months-36 months of vat-FCTT-GKTY-trivalent Unknown 02/08/2016 Administered xFluzone (6mos and older)-trivalent IM Intramuscular 02/05/2013 Administered xFluzone High Dose-private (65yr&older) IM Intramuscular 02/20/2014 Administered Problems Problem Type SNOMED Code ICD Code Onset Dates Problem Status W/U Status Risk Notes Problem Vitamin D deficiency (90027095) Vitamin D deficiency (E55.9) Active confirmed Problem Essential hypertension (43632931) Essential hypertension (I10) Active confirmed Problem Anxiety (39932727) Anxiety (F41.9) Active confi rmed Problem Urinary retention (556085497) Urinary retention (R33.9) Active confirmed Problem Osteopenia (857784190) Osteopenia (M85.80) Active confirmed Problem Neurogenic bladder (147443572) Neurogenic bladder (N31.9) Active confirmed Problem Overactive urinary bladder (disorder) (549193593) OAB (overactive bladder) (N32.81) Active confirmed Problem Mixed hyperlipidemia (995840886) Mixed hyperlipidemia (E78.2) Active confirmed Problem Urge incontinence of urine (69530934) Urge incontinence (N39.41) Active confirmed Problem Incontinence of feces (26016061) Full incontinence of feces (R15.9) Active confirmed Problem History of polyp of colon (situation) (382070866) Hx of colonic polyps (Z86.010) Active confirmed Problem Neuropathy (544215798) Neuropathy (G62.9) Active confirmed Problem Ataxia (54263760) Ataxia (R27.0) Active confirm ed Problem Claudication (67266609) Claudication (I73.9) Active confirmed Problem Urinary tract infectious disease (23601501) Chronic UTI (N39.0) Active confirmed Problem Body mass index 30.00 to 34.99 (159231318396571) BMI 31.0-31.9,adult (Z68.31) Active confirmed Problem Body mass index 30.00 to 34.99 (520969076164323) BMI 34.0-34.9,adult (Z68.34) Active confirmed Problem Spasm of bladder (889411001) Bladder spasms (N32.89) Active confirmed Problem Urge incontinence of urine (84566579) Urge incontinence of urine (N39.41) Active confirmed Problem Raynaud's disease (909477825) Raynaud's disease without gangrene (I73.00) Active confirmed Problem Obesity (464497619) Non morbid obesity (E66.9) Active confirmed Problem Arthritis of left knee (1216029065521677) Arthritis of left knee (M17.12) Active confirmed Problem Urinary incontinence (939225618) Other urinary incontinence (N39.498) Active confirmed Problem Seasonal allergic rhinitis (811855966) Seasonal allergic rhinitis, unspecified trigger (J30.2) Active confirmed Problem Cervical myelopathy (155359056) Cervical myelopathy (G95.9) Active confirmed Problem 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 Problem 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 Problem Gastroesophageal reflux disease (575374831) Gastroesophageal reflux disease, unspecified whether esophagitis present (K21.9) Active confirmed Problem Chronic kidney disease stage 3 (disorder) (285856940) Stage 3 chronic kidney disease, unspecified whether stage 3a or 3b CKD (N18.30) Active confirmed Problem Urinary incontinence (489862712) Urinary incontinence in female (R32) Active confirmed Problem Herniation of rectum into vagina (382421360) Rectocele, female (N81.6) Active confirmed Vital Signs Heart Rate 107 /min 11/13/2024 Blood pressure diastolic 70 mm Hg 11/13/2024 Height 65 in 11/13/2024 Blood pressure systolic 132 mm Hg 11/13/2024 Weight 204.4 lbs 11/13/2024 BMI 34.01 kg/m2 11/13/2024 Encounters Encounter Location Date Provider Diagnosis [facility] [address] [place], [place] [id number] 12/08/2023 Jensen Coward Acute cough R05.1 ; Urinary tract infection without hematuria, site unspecified N39.0 ; Heartburn R12 ; Colon cancer screening Z12.11 and Hx of colonic polyps Z86.010 [facility] [address] [facility] [address] [place], [place] [id number] 01/02/2024 Jensen Coward Pyuria R82.81 and Frequency of urination R35.0 [facility] [address] [facility] [address] [place], [place] [id number] 2024 Jensen Coward [facility] [address] [facility] [address] [place] [id number] 03/10/2024 Jensen Coward Urinary tract infect ion without hematuria, site unspecified N39.0 [facility] [address] [facility] [address] [place] [id number] 03/16/2024 Jensen Coward Acute UTI N39.0 and Exposure to the flu Z20.828 [facility] [address] [facility] [address] [place], [place] [id number] 03/23/2024 Jensen Coward Recurrent UTI N39.0 and Urge incontinence N39.41 [facility] [address] [facility] [address] [place] [id number] 05/18/2024 Jensen Coward Urinary tract infect ion, site not specified N39.0 ; Unspecified Escherichia coli [E. coli] as the cause of diseases classified elsewhere B96.20 ; Neurogenic bladder N31.9 and Acute deep vein thrombosis (DVT) of left peroneal vein I82.452 [facility] [address] [facility] [address] [place] [id number] 05/28/2024 Jensen Coward Chronic UTI N39.0 an d Open wound of right lower extremity, initial encounter S81.801A [facility] [address] [facility] [address] [place] [id number] 06/11/2024 Maryanne Malik UTI (lower urinary t ract infection) N39.0 [facility] [address] [facility] [address] [place] [id number] 06/15/2024 Jensen Coward Cystitis, unspecifie d without hematuria N30.90 and Klebsiella pneumoniae [K. pneumoniae] as the cause of diseases classified elsewhere B96.1 [facility] [address] [facility] [address] [place] [id number] 07/10/2024 Jensen Coward Acute cystitis witho ut hematuria N30.00 ; Gastroesophageal reflux disease, unspecified whether esophagitis present K21.9 and BMI 34.0-34.9,adult Z68.34 [facility] [address] [facility] [address] [place] [id number] 07/16/2024 Jensen Coward Chronic UTI N39.0 [facility] [address] [facility] [address] [place] [id number] 07/18/2024 Jensen Coward Chronic UTI N39.0 ; Urinary retention R33.9 ; Urinary incontinence in female R32 ; Bladder spasms N32.89 ; Dermatopolymyositis M33.90 and BMI 34.0-34.9,adult Z68.34 [facility] [address] [facility] [address] [place] [id number] 08/24/2024 Jensen Coward Pelvic pain R10.2 ; Chronic UTI N39.0 and Cook catheter in place Z92.89 [facility] [address] [facility] [address] [place] [id number] 10/17/2024 Jensen Coward Chronic UTI N39.0 ; Pain in left knee M25.562 and Non morbid obesity E66.9 [facility] [address] [facility] [address] [place] [id number] 11/05/2024 Jensen Coward Chronic UTI N39.0 [facility] [address] [facility] [address] [place] [id number] 11/13/2024 Jensen Coward Chronic UTI N39.0 ; Urinary retention R33.9 and Rectocele, female N81.6 [facility] [address] [facility] [address] [place] [id number] 01/11/2024 Jensen Coward [facility] [address] [place] [id number] 01/18/2024 Jensen Coward [facility] [address] [place] [id number] 02/24/2024 Jensen Coward Neuropathy G62.9 [facility] [address] [place] [id number] 03/13/2024 Jensen Coward [facility] [address] [place] [id number] 03/19/2024 Jensen Coward [facility] [address] [place] [id number] 06/11/2024 Jensen Coward [facility] [address] [place] [id number] 07/16/2024 Jensen Coward [facility] [address] [place] [id number] 07/23/2024 Jensen Coward [facility] [address] [place] [id number] 08/28/2024 Jensen Coward Chronic UTI N39.0 [facility] [address] [place] [id number] 09/03/2024 Jensen Coward Neuropathy G62.9 [facility] [address] [place] [id number] 09/03/2024 Jensen Coward Screening for breast cancer Z12.39 and Screening for osteoporosis Z13.820 [facility] [address] [place], [place] [id number] 09/07/2024 Jensen Coward Urinary retention R3 3.9 ; Other urinary incontinence N39.498 and Chronic UTI N39.0 [facility] [address] [place] [id number] 10/19/2024 Jensen Coward [facility] [address] [place] [id number] 10/23/2024 Jensen Coward [facility] [address] [place] [id number] 10/24/2024 Jensen Coward [facility] [address] [place] [id number] 11/16/2024 Jensen Coward Acute UTI N39.0 [facility] [address] [place] [id number] 11/20/2024 Jensen Coward [facility] [address] [place] [id number] 11/22/2024 Jensen Coward Assessments Encounter Date Diagnosis (ICD Code) Assessment [...] - N39.0) Patient to follow up with [facility] urology next week 08/24/2024 Pelvic [...] Date MEDICARE PART B [address] [address] [place] [id number] [phone] [id number] Kelli Scott Self - patient is the insured [employer] [address] [address] [place] [id number] Kelli Scott Self - patient is the [...] rhinitis Chronic cystitis neuropathy, s/p Neurology evaluation Colon polyps Dermatomyositis, Dx: 2022 DVT, left leg May 2024 urinary retention Surgical History Surgery Date(Month/Year) Bladder Tuck 2008 Bladder Tuck 04/2012 Left Knee 12/08/18 Hospitalization History Reason Date(Month/Year) [facility] - [facility] - Cervical myelopa thy 02/15-02/24/2009 [facility] - 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
--- OUTSIDE RECORDS SUMMARY | 2024-11-29 14:42 | XMS_ITS | Clinical Summary ---
[facility] Address [address] [place] [address] Care Team Providers Care Rapid Transit Operator Name Role Phone Jensen Santiago MD Primary Care Provider [phone] Allergies Active Allergy Reactions Criticality Noted Date Comments Lisinopril Hives Low 03/28/2019 Penicillins Rash Low 03/28/2019 Tramadol Rash Low 10/17/2019 Medications potassium chloride (K-DUR,KLOR-CON) 10 MEQ CR tablet Take 10 mEq by mouth Daily. 9 Active losartan (COZAAR) 25 MG tablet Take 1 tablet by mouth Daily. Active Biotin 34352 MCG tablet Take 1,000 mcg by mouth Daily. Active [place]-3 Fatty Acids (FISH OIL) 500 MG capsule [...] TO AFFECTED AREA TWICE DAILY 2 Active [place]-3 Fatty Acids (fish oil) 1000 MG capsule [...] 75+ series) 2022 COVID-19 Vaccine (8 - 2024-2 6 season) 2024 12/16/2021, 07/31/2021, 01/28/2021, Additional history exists INFLUENZA VACCINE 12/19/2024 01/29/2022, , 12/02/2020, Additional history exists TDAP/TD VACCINES (2 - Td or Tdap) 05/11/2028 019 Pneumococcal Vaccine 50+ Completed 06/29/2019, 04/22 Medical Devices Implanted Type Area Superintendent Container Terminal Device Identifier Shelf Expiration Date Model / Serial / Lot Sys Liq Emb Thomas 18 Evoh/6pct Vl1.5ml - [id number] Implanted:Qty: 1 on 04/06/2019 by Laurent Kelsey MD at [facility] Implant EV3 [place] [id number] / Insurance MEDICARE A & B [employer] [facility] Advance Directives Documents on File Type Date Recorded 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
[2024-11-29 14:48] LABS: Hematocrit 36.6 % (37.0-47.0); Hemoglobin 11.7 g/dL (12.2-16.2); Immature Granulocytes % 0.6 %; Mean Corpuscular HGB Conc 32.0 g/dL (31.8-35.4); Mean Corpuscular Hemoglobin 29.5 pg (27.0-31.2); Mean Corpuscular Volume 92.4 fl (81-99); Nucleated Red Blood Cells % 0 %; Platelet Count 231 K/mm3 (142-424); Red Blood Count 3.96 M/mm3 (4.20-5.40); Red Cell Distribution Width-SD 48.7 fL; White Blood Count 6.3 K/mm3 (4.8-10.8)
[2024-11-29 15:36] LABS: Albumin Level 4.0 g/dl (3.5-5.0); Chloride 106 mmol/L (98-107); Potassium 3.7 mmoL/L (3.5-5.1); Sodium 140 mmol/L (136-145)
[2024-11-29 15:39] LABS: Alanine Aminotransferase 16 U/L (12-78); Albumin/Globulin Ratio 1.6 (1.1-1.8); Alkaline Phosphatase 73 U/L (38-126); Anion Gap 9.7 mEq/L (5-15); Aspartate Amino Transferase 27 U/L (14-36); Bilirubin,Direct 0.1 mg/dl (0.0-0.4); Bilirubin,Indirect 0.4 mg/dL (0.0-0.9); Bilirubin,Total 0.5 mg/dl (0.2-1.3); Bilirubin,Unconjugated 0.4 mg/dL (0.0-1.1); Blood Urea Nitrogen 19 mg/dl (7-17); Calcium 9.7 mg/dl (8.4-10.2); Carbon Dioxide 28 mmol/L (22.0-30.0); Creatinine,Serum 1.00 mg/dl (0.52-1.04); Estimated Glomerular Filt Rate 54 ml/min (>60); GFR (African American) 65 ML/MIN (>60); Globulin 2.5 g/dL (1.3-3.2); Glucose 123 mg/dl (74-100); Total Protein,Serum 6.5 g/dl (6.3-8.2)
== END 2024-11-29 23:59 | disposition home or self-care (01) ==
LOC: LAB 14:16
PROVIDERS: PCP Family Medicine; Visit Provider Internal Medicine Rheumatology
DX: Z79.899 Other long term (current) drug therapy (principal); Z79.60 Long term (current) use of unspecified immunomodulators and immunosuppressants
CPT/HCPCS: 36415; 80053; 82248; 85025; 85651

== ENCOUNTER 2025-02-27 09:42 | Outpatient (CLI) | payer MEDICARE, OTHER, SELFPAY ==
[2025-02-27 10:17] LABS: Hematocrit 38.9 % (37.0-47.0); Hemoglobin 12.1 g/dL (12.2-16.2); Immature Granulocytes % 0.6 %; Mean Corpuscular HGB Conc 31.1 g/dL (31.8-35.4); Mean Corpuscular Hemoglobin 28.4 pg (27.0-31.2); Mean Corpuscular Volume 91.3 fl (81-99); Nucleated Red Blood Cells % 0 %; Platelet Count 234 K/mm3 (142-424); Red Blood Count 4.26 M/mm3 (4.20-5.40); Red Cell Distribution Width-SD 47.9 fL; White Blood Count 5.3 K/mm3 (4.8-10.8)
[2025-02-27 11:28] LABS: Alanine Aminotransferase 13 U/L (12-78); Albumin Level 4.3 g/dl (3.5-5.0); Albumin/Globulin Ratio 1.7 (1.1-1.8); Alkaline Phosphatase 78 U/L (38-126); Anion Gap 12.2 mEq/L (5-15); Aspartate Amino Transferase 21 U/L (14-36); Bilirubin,Direct 0.1 mg/dl (0.0-0.4); Bilirubin,Indirect 0.5 mg/dL (0.0-0.9); Bilirubin,Total 0.6 mg/dl (0.2-1.3); Bilirubin,Unconjugated 0.4 mg/dL (0.0-1.1); Blood Urea Nitrogen 25 mg/dl (7-17); Calcium 9.6 mg/dl (8.4-10.2); Carbon Dioxide 27 mmol/L (22.0-30.0); Chloride 103 mmol/L (98-107); Creatinine,Serum 1.10 mg/dl (0.52-1.04); Estimated Glomerular Filt Rate 48 ml/min (>60); GFR (African American) 58 ML/MIN (>60); Globulin 2.6 g/dL (1.3-3.2); Glucose 85 mg/dl (74-100); Potassium 4.2 mmoL/L (3.5-5.1); Sodium 138 mmol/L (136-145); Total Protein,Serum 6.9 g/dl (6.3-8.2)
== END 2025-02-27 23:59 | disposition home or self-care (01) ==
LOC: LAB 09:43 → INF 10:05
PROVIDERS: PCP Family Medicine; Visit Provider Internal Medicine Rheumatology
DX: I10 Essential (primary) hypertension (principal); Z79.60 Long term (current) use of unspecified immunomodulators and immunosuppressants
CPT/HCPCS: 36415; 80053; 82248; 85025; 85651